=== PATIENT | female | born 1955 | race Two or more races ===

== ENCOUNTER → 2020-04-18 13:16 | Outpatient (BNVA) | payer OTHER, SELFPAY | PROVIDERS: PCP Internal Medicine; Referring Provider Internal Medicine; Visit Provider Student in an Organized Health Care Education/Training Program | DX: Z13.89 Encounter for screening for other disorder (principal) | CPT/HCPCS: Q3014 ==

== ENCOUNTER → 2020-05-29 14:01 | Outpatient (BNVA) | payer OTHER, SELFPAY | PROVIDERS: PCP Internal Medicine; Visit Provider Nurse Practitioner Gerontology | DX: E11.65 Type 2 diabetes mellitus with hyperglycemia (principal); E11.42 Type 2 diabetes mellitus with diabetic polyneuropathy; E11.22 Type 2 diabetes mellitus with diabetic chronic kidney disease; I12.9 Hypertensive chronic kidney disease with stage 1 through stage 4 chronic kidney disease, or unspecified chronic kidney disease; N18.30 Chronic kidney disease, stage 3 unspecified; Z79.4 Long term (current) use of insulin | CPT/HCPCS: 82947; 99212 ==

== ENCOUNTER 2020-06-09 17:09 | Emergency (ER) | payer OTHER, SELFPAY ==
--- NOTE | ~2020-06-09 | XR_ITS ---
EXAMINATION: XR FOOT, RIGHT CLINICAL INFORMATION: Pain after injury COMPARISON: None TECHNIQUE: AP, lateral, and oblique views of the right foot. FINDINGS: Oblique fracture through the fourth toe proximal phalanx without intra-articular extension. There is minimal lateral displacement. Associated soft tissue swelling. No radiopaque foreign bodies. XR/XR foot RT min 3V IMPRESSION: Acute minimally displaced oblique fracture through the fourth toe proximal phalanx.
[2020-06-09 17:32] VITALS: BP 170/67; PULSE 90; RESP 18; TEMP 36.2; O2SAT 98; BMI 30.7
--- NOTE | 2020-06-09 20:22 | ED_ITS ---
HPI - Extremity Injury (Lower) General Chief Complaint: Extremity Injury, Lower Stated Complaint: Foot Injury Time Seen by Provider: 06/09/20 20:15 Source: patient Mode of arrival: ambulatory History of Present Illness HPI Narrative: 65-year-old female With a past medical history of asthma, CKD, COPD, depression, hypertension, fibromyalgia, diabetes, presenting to the ED complaining right foot/toe pain s/p stubbing toes in couch 2 days ago. Reports ecchymosis, swelling, and pain. Denies injury to other area, numbness, tingling, weakness, fever MD complaint: foot injury Related Data Home Medications Medication Instructions Recorded Confirmed albuterol sulfate 90 mcg/actuation 2 puff INHALATION Q6H PRN 04/18/20 05/29/20 aerosol inhaler aspirin 81 mg tablet,delayed 81 mg PO DAILY 04/18/20 05/29/20 release atenolol 25 mg tablet 25 mg PO BID 04/18/20 05/29/20 fluticasone 500 mcg-salmeterol 50 1 inh INHALATION BID 04/18/20 05/29/20 mcg/dose blistr powdr for inhalation gabapentin 800 mg tablet 800 mg PO TID 04/18/20 05/29/20 losartan 100 mg tablet 100 mg PO DAILY 04/18/20 05/29/20 montelukast 10 mg tablet 10 mg PO BEDTIME 04/18/20 05/29/20 blood sugar diagnostic #10 ea 05/29/20 05/29/20 insulin syringe-needle U-100 1 mL #10 ea 05/29/20 05/29/20 31 gauge x 15/64 zolpidem 10 mg tablet 10 mg PO BEDTIME PRN 05/29/20 05/29/20 Previous Rx's Medication Instructions Recorded tramadol 50 mg tablet 100 mg PO BID #120 tab 02/04/20 dulaglutide 1.5 mg/0.5 mL 1.5 mg SUBCUT QWEEK #2 ml 05/04/20 subcutaneous pen injector amlodipine 5 mg tablet 5 mg PO DAILY #30 tab 05/29/20 insulin glargine 100 unit/mL 38 unit SUBCUT DAILY 30 Days #20 ml 05/29/20 subcutaneous solution pen needle, diabetic 32 gauge x #100 ea 05/29/20 insulin aspart U-100 100 unit/mL See Rx Instructions SUBCUT TID 30 05/30/20 (3 mL) subcutaneous pen Days #15 ml oxycodone 5 mg PO Q8H PRN 3 Days #7 cap 06/09/20 Allergies Allergy/AdvReac Type Severity Reaction Status Date / Time insulin detemir Allergy Intermediate Rash Verified 06/09/20 17:40 penicillin V Allergy Intermediate Rash Verified 06/09/20 17:40 acetaminophen [From Tylenol] Allergy Mild ITCH,RASH Verified 06/09/20 17:40 iodine [Iodine] Allergy Mild HIVES Verified 06/09/20 17:40 penicillin G [Penicillin G] Allergy Mild RASH Verified 06/09/20 17:40 latex [LATEX] Allergy Unknown RASH Verified 06/09/20 17:40 trimerosal Allergy Intermediate rash Uncoded 06/09/20 17:40 Latex Gloves Allergy Mild Rash Uncoded 06/09/20 17:40 METAL Allergy Mild HIVES Uncoded 06/09/20 17:40 Review of Systems Review of Systems: Constitutional: No Fever, No Chills Musculoskeletal: + joint pain, No Myalgias, + Joint Swelling Skin: + ecchymosis Neuro: No Weakness, No Numbness, No Paresthesias Yes all other systems are reviewed and are negative [facility] Past Medical History Attestation statement: The following information was validated with the patient. 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 Mother Heart disease CVD (cardiovascular disease) Diabetes Social History Social History (Updated 05/29/20 @ 14:29 by Zelalem Randolph Joey) Household Members: Children Smoking Status: Current every day smoker Advance Directives: No Advance Directives Information Provided: Yes Physical Exam Vital Signs: Vital Signs: Last Vital Signs Temp 97.2 F 06/09/20 17:32 Pulse 90 06/09/20 17:32 Resp 18 06/09/20 17:32 BP 170/67 H 06/09/20 17:32 Pulse Ox 98 06/09/20 17:32 Body Mass Index 30.7 Const: General: cooperative, healthy appearing and comfortable Orientation/consciousness: patient oriented x3 Limitations: no limitations HENMT: Head: Yes normal to inspection Ears: hearing grossly normal bilaterally General nose exam: Normal external nose present Face and sin us: Yes normal facial exam Eyes: General: appearance normal, both eyes and all related structures EOM: EOMs intact bilaterally Neck: Neck: Yes normal visual inspection Resp: Effort & Inspection: normal respiratory effort Cardio: Rate: regular rate Peripheral pulses: dorsalis pedis present Skin: Rashes: no rashes Neuro: General: patient oriented x3 and tone normal Gait exam (Neuro): Normal gait present Extrem: Other: Right foot with swelling noted distally. All toes with slight ecchymosis. Fourth toe with notable swelling/ecchymosis and tenderness to palpation. Decreased ROM to 4th toe. Neurovascularly intact. Ankle nontender. Full range of motion ankle intact Course Course Course Narrative: XR foot RT min 3V IMPRESSION: Acute minimally displaced oblique fracture through the fourth toe proximal phalanx. >> patient placed in westley tape, is to follow-up with PCP/Orthopedics MDM - Extremity Injury (Lower) MDM Narrative Medical decision making narrative: On exam VSS, NAD/well-appearing. Physical exam as above. Concern for toe fracture/foot fracture Discharge Plan Discharge Clinical Impression: Fracture of fourth toe, right, closed Qualifiers: Encounter type: initial encounter Qualified Code(s): S92.501A - Displaced unspecified fracture of right lesser toe(s), initial encounter for closed f racture Patient Disposition: Home, Self-Care Instructions: Toe Fracture (ED) Additional Instructions: You have a fractured 4th toe. Wear westley tape at home for support. Ice and elevate your foot. Take Motrin at home for swelling/pain. Oxycodone isn't opiate pain medication, take only when pain is severe for the next 3 days You should follow-up with an senior marketing specialist in 1 week If pain persists or worsens, you develop numbness, pain becomes unbearable, or you fever return to the ED Prescriptions: New oxycodone 5 mg capsule 5 mg PO Q8H PRN (Reason: pain, severe) 3 Days Qty: 7 RF: 0 No Action tramadol 50 mg tablet 100 mg PO BID Qty: 120 RF: 5 dulaglutide [Trulicity] 1.5 mg/0.5 mL pen injector 1.5 mg subcut QWEEK Qty: 2 RF: 3 insulin aspart U-100 [Novolog Flexpen U-100 Insulin] 100 unit/mL (3 mL) insulin pen See Rx Instructions subcut TID 30 Days Qty: 15 RF: 0 albuterol sulfate 90 mcg/actuation HFA aerosol inhaler 2 puff inhalation Q6H PRNRF: 0 fluticasone propion-salmeterol [Advair Diskus] 500-50 mcg/dose blister with device 1 inh inhalation BID RF: 0 gabapentin 800 mg tablet 800 mg PO TID RF: 0 losartan 100 mg tablet 100 mg PO DAILY RF: 0 aspirin 81 mg tablet,delayed release (DR/EC) 81 mg PO DAILY RF: 0 montelukast [Singulair] 10 mg tablet 10 mg PO BEDTIME RF: 0 atenolol 25 mg tablet 25 mg PO BID RF: 0 (DME) insulin syringe-needle U-100 1 mL 31 gauge x 15/64 syringe See Rx Instructions ea .ROUTE BID Qty: 10 RF: 0 (DME) FreeStyle Lite Strips Strip See Rx Instructions ea Not Applicable BID Qty: 10 RF: 0 zolpidem 10 mg tablet 10 mg PO BEDTIME PRNRF: 0 Lantus U-100 Insulin 100 unit/mL solution 38 unit subcut DAILY 30 Days Qty: 20 RF: 3 (DME) pen needle, diabetic [BD Ultra-Fine Janene Pen Needle] 32 gauge x 5/32 needle See Rx Instructions .ROUTE .MEDSUPPLY Qty: 100 RF: 11 amlodipine 5 mg tablet 5 mg PO DAILY Qty: 30 RF: 3 Referrals: Juan R Bey MD [Primary Care Provider] - 2 days
[2020-06-09] MEDS: Ibuprofen 800 MG TABLET PO (21:00)
== END 2020-06-09 21:09 | disposition home or self-care (01) ==
PROVIDERS: Emergency Provider Internal Medicine; PCP Internal Medicine
DX: S92.501A Displaced unspecified fracture of right lesser toe(s), initial encounter for closed fracture (principal); M79.671 Pain in right foot; I12.9 Hypertensive chronic kidney disease with stage 1 through stage 4 chronic kidney disease, or unspecified chronic kidney disease; N18.30 Chronic kidney disease, stage 3 unspecified; Y29.XXXA Contact with blunt object, undetermined intent, initial encounter; Y93.9 Activity, unspecified; Y92.009 Unspecified place in unspecified non-institutional (private) residence as the place of occurrence of the external cause; Y99.9 Unspecified external cause status; F17.200 Nicotine dependence, unspecified, uncomplicated; Z71.6 Tobacco abuse counseling; Z79.899 Other long term (current) drug therapy; Z79.82 Long term (current) use of aspirin
CPT/HCPCS: 73630; 99283; 99284

== ENCOUNTER → 2020-06-27 13:24 | Outpatient (BNVA) | payer OTHER, SELFPAY | PROVIDERS: PCP Internal Medicine; Visit Provider Physician Assistant | DX: S92.911A Unspecified fracture of right toe(s), initial encounter for closed fracture (principal) | CPT/HCPCS: 99202 ==

== ENCOUNTER 2020-07-25 09:01 | Outpatient (REF) | payer OTHER, SELFPAY ==
[2020-07-25 10:31] LABS: Alanine Aminotransferase 12 U/L (0-31); Alkaline Phosphatase 106 U/L (39-117); Anion Gap 14 (12-20); Aspartate Amino Transferase 13 U/L (5-31); Bilirubin Total 0.3 mg/dL (0.0-1.0); Blood Urea Nitrogen 18 mg/dL (9-16); Calcium 9.2 mg/dL (8.4-10.2); Carbon Dioxide 26 mmol/L (22-29); Chloride 106 mmol/L (96-108); Cholesterol 198 mg/dL; Estimated Glomerular Filt Rate > 60; Glucose Fasting 159 mg/dL (60-99); HDL Cholesterol 44 mg/dL; LDL Cholesterol Calculated 128 mg/dl; Potassium 5.4 mmol/L (3.3-5.1); Sodium 141 mmol/L (135-145); Total Protein 6.9 g/dL (6.5-8.0); Triglycerides 134 mg/dL
[2020-07-25 11:17] LABS: Creatinine Urine 115.63 mg/dL; Microalbum/Creatinine Ratio Ur 359.7 ug/mg cr
== END 2020-07-25 09:02 | disposition home or self-care (01) ==
LOC: HO.LAB 09:01
PROVIDERS: PCP Internal Medicine; Visit Provider Nurse Practitioner Gerontology
DX: E11.65 Type 2 diabetes mellitus with hyperglycemia (principal); Z79.4 Long term (current) use of insulin
CPT/HCPCS: 36415; 80053; 80061; 82043

== ENCOUNTER 2020-07-28 08:26 | Outpatient (REF) | payer OTHER, SELFPAY ==
[2020-07-28 10:02] LABS: Alanine Aminotransferase 12 U/L (0-31); Albumin Level 4.1 g/dL (3.5-5.0); Alkaline Phosphatase 117 U/L (39-117); Anion Gap 12 (12-20); Aspartate Amino Transferase 10 U/L (5-31); Blood Urea Nitrogen 19 mg/dL (9-16); Calcium 9.1 mg/dL (8.4-10.2); Carbon Dioxide 28 mmol/L (22-29); Chloride 104 mmol/L (96-108); Estimated Glomerular Filt Rate > 60; Glucose Random 180 mg/dL (60-115); Potassium 5.3 mmol/L (3.3-5.1); Sodium 139 mmol/L (135-145); Total Protein 7.1 g/dL (6.5-8.0)
[2020-07-28 10:15] LABS: Bilirubin Total 0.5 mg/dL (0.0-1.0)
== END 2020-07-28 08:27 | disposition home or self-care (01) ==
LOC: HO.LAB 08:26
PROVIDERS: Student in an Organized Health Care Education/Training Program; PCP Internal Medicine; Visit Provider Nurse Practitioner Gerontology
DX: M47.816 Spondylosis without myelopathy or radiculopathy, lumbar region (principal); E11.42 Type 2 diabetes mellitus with diabetic polyneuropathy
CPT/HCPCS: 36415; 80053

== ENCOUNTER → 2020-08-01 12:33 | Outpatient (BNVA) | payer OTHER, SELFPAY | PROVIDERS: PCP Internal Medicine; Visit Provider Nurse Practitioner Gerontology | DX: E11.65 Type 2 diabetes mellitus with hyperglycemia (principal); E11.42 Type 2 diabetes mellitus with diabetic polyneuropathy; E11.22 Type 2 diabetes mellitus with diabetic chronic kidney disease; I12.9 Hypertensive chronic kidney disease with stage 1 through stage 4 chronic kidney disease, or unspecified chronic kidney disease; N18.30 Chronic kidney disease, stage 3 unspecified; Z79.4 Long term (current) use of insulin; E78.5 Hyperlipidemia, unspecified; R80.9 Proteinuria, unspecified | CPT/HCPCS: 82947; 99212 ==

== ENCOUNTER 2020-09-06 09:30 | Outpatient (REF) | payer OTHER, SELFPAY ==
--- NOTE | ~2020-09-06 | US_ITS ---
EXAMINATION: US RETROPERITONEAL LIMITED (RENAL ONLY) CLINICAL INFORMATION: CKD. COMPARISON: CT abdomen and pelvis 08/13/2016. TECHNIQUE: Real-time imaging of the kidneys. FINDINGS: RIGHT KIDNEY: 12.5 x 5.6 x 5.5 cm (SAG x AP x TRV). The kidney is normal in size, contour, and echogenicity. Renal cortical thickness is normal. There is a 4 x 5 x 5 mm echogenic lesion in the lower pole of the right kidney . This is not appreciated on previous CT July 2016. No renal calculi or hydronephrosis. LEFT KIDNEY: 12.4 x 6.7 x 5.5 cm (SAG x AP x TRV). The kidney is normal in size, contour, and echogenicity. Renal cortical thickness is normal. There is a 7 x 4 x 8 mm cyst exophytic to the lower pole. No renal calculi or hydronephrosis. US/US renal BI IMPRESSION: 5 mm echogenic lesion in the lower pole of the right kidney. Ultrasound appearance is most suggestive of an angiomyolipoma. This is not appreciated on previous CT of the abdomen July 2016. Follow-up CT or MRI of the kidneys or a 6 month follow-up renal ultrasound should be considered. Small left renal cyst..
[2020-09-06 11:00] LABS: Glucose Urine UA NEG (NEG); Leukocyte Esterase Urine NEG (NEG); Nitrite Urine NEG (NEG); PH 5.5 (5.0-8.0); Specific Gravity - Urine >= 1.030 (1.005-1.025); Urine Blood NEG (NEG); Urine Ketones NEG (NEG); Urine Protein 2+ MG/DL (NEG-TRACE)
[2020-09-06 11:02] LABS: Appearance Urine HAZY; Color Urine YELLOW
[2020-09-06 11:29] LABS: Amorphous Sediment Urine 1+ /LPF; Mucus Urine 2+ /LPF; RBC Urine 0-2 /HPF (0); Squamous Epithelial Cell Urine 1+ /LPF
[2020-09-06 11:50] LABS: Anion Gap 14 (12-20); Blood Urea Nitrogen 17 mg/dL (9-16); Calcium 8.9 mg/dL (8.4-10.2); Carbon Dioxide 25 mmol/L (22-29); Chloride 106 mmol/L (96-108); Estimated Glomerular Filt Rate 56; Potassium 4.9 mmol/L (3.3-5.1); Sodium 140 mmol/L (135-145)
[2020-09-06 12:12] LABS: Protein/Creatinine Ratio, Ur 0.47 (<0.2); Total Protein Urine Random 103 mg/dL (<12)
== END 2020-09-06 09:31 | disposition home or self-care (01) ==
LOC: HO.US 09:30
PROVIDERS: PCP Internal Medicine; Visit Provider Internal Medicine Hypertension Specialist
DX: E11.22 Type 2 diabetes mellitus with diabetic chronic kidney disease (principal); N18.9 Chronic kidney disease, unspecified
CPT/HCPCS: 36415; 76775; 80051; 81001; 81003; 82310; 82565; 84156; 84520

== ENCOUNTER 2020-09-19 09:52 | Outpatient (REF) | payer OTHER, SELFPAY | END 2020-09-19 09:53 | disposition home or self-care (01) | LOC: HO.LAB 09:52 | PROVIDERS: Visit Provider Internal Medicine | DX: Z20.822 Contact with and (suspected) exposure to COVID-19 (principal) | CPT/HCPCS: C9803; U0003; U0005 ==

== ENCOUNTER → 2020-09-20 12:45 | Outpatient (BNVA) | payer OTHER, SELFPAY | PROVIDERS: PCP Internal Medicine; Visit Provider Nurse Practitioner Gerontology | DX: E11.65 Type 2 diabetes mellitus with hyperglycemia (principal); E11.42 Type 2 diabetes mellitus with diabetic polyneuropathy; E11.22 Type 2 diabetes mellitus with diabetic chronic kidney disease; I12.9 Hypertensive chronic kidney disease with stage 1 through stage 4 chronic kidney disease, or unspecified chronic kidney disease; N18.30 Chronic kidney disease, stage 3 unspecified; R80.9 Proteinuria, unspecified; Z79.4 Long term (current) use of insulin | CPT/HCPCS: 82947; 99212 ==

== ENCOUNTER → 2020-11-07 10:24 | Outpatient (BNVA) | payer OTHER, SELFPAY | PROVIDERS: PCP Internal Medicine; Visit Provider Nurse Practitioner Gerontology | DX: E11.22 Type 2 diabetes mellitus with diabetic chronic kidney disease (principal); E11.65 Type 2 diabetes mellitus with hyperglycemia; E11.42 Type 2 diabetes mellitus with diabetic polyneuropathy; I12.9 Hypertensive chronic kidney disease with stage 1 through stage 4 chronic kidney disease, or unspecified chronic kidney disease; N18.30 Chronic kidney disease, stage 3 unspecified; R80.9 Proteinuria, unspecified; E78.5 Hyperlipidemia, unspecified; F17.210 Nicotine dependence, cigarettes, uncomplicated; Z88.0 Allergy status to penicillin; Z88.8 Allergy status to other drugs, medicaments and biological substances; Z88.6 Allergy status to analgesic agent; Z91.040 Latex allergy status; Z79.4 Long term (current) use of insulin; Z79.899 Other long term (current) drug therapy | CPT/HCPCS: Q3014 ==

== ENCOUNTER → 2020-12-19 09:12 | Outpatient (BNVA) | payer OTHER, SELFPAY | PROVIDERS: PCP Internal Medicine; Visit Provider Student in an Organized Health Care Education/Training Program | CPT/HCPCS: Q3014 ==

== ENCOUNTER → 2021-04-19 11:44 | Outpatient (BNVA) | payer OTHER, SELFPAY | PROVIDERS: PCP Internal Medicine; Visit Provider Nurse Practitioner Gerontology | DX: Z13.89 Encounter for screening for other disorder (principal) | CPT/HCPCS: Q3014 ==

== ENCOUNTER → 2021-05-10 10:34 | Outpatient (BNVA) | payer OTHER, SELFPAY | PROVIDERS: PCP Internal Medicine; Visit Provider Registered Nurse Diabetes Educator | DX: E11.65 Type 2 diabetes mellitus with hyperglycemia (principal); E11.22 Type 2 diabetes mellitus with diabetic chronic kidney disease; N18.30 Chronic kidney disease, stage 3 unspecified; E11.42 Type 2 diabetes mellitus with diabetic polyneuropathy; Z79.4 Long term (current) use of insulin | CPT/HCPCS: 99211 ==

== ENCOUNTER → 2021-05-25 11:48 | Outpatient (BNVA) | payer OTHER, SELFPAY | PROVIDERS: PCP Internal Medicine; Visit Provider Registered Nurse Diabetes Educator | DX: E11.65 Type 2 diabetes mellitus with hyperglycemia (principal); E11.22 Type 2 diabetes mellitus with diabetic chronic kidney disease; N18.30 Chronic kidney disease, stage 3 unspecified; E11.42 Type 2 diabetes mellitus with diabetic polyneuropathy; Z79.4 Long term (current) use of insulin | CPT/HCPCS: 99211 ==

== ENCOUNTER 2021-05-25 12:05 | Emergency (ER) | payer OTHER, SELFPAY ==
--- NOTE | 2021-05-25 | ECG_ITS ---
Test Reason : neuro symptoms Blood Pressure : / mmHG Vent. Rate : 083 BPM Atrial Rate : 083 BPM P-R Int : 170 ms QRS Dur : 098 ms QT Int : 370 ms P-R-T Axes : 059 006 066 degrees QTc Int : 434 ms Normal sinus rhythm Nonspecific T wave abnormality Abnormal ECG When compared with ECG of 14-AUG-2016 00:00, Non-specific change in ST segment in Lateral leads Referred By: Generic ED Physician Electronically Signed By:RIOS KENNEDY
--- NOTE | ~2021-05-25 | CT_ITS ---
EXAMINATION: CT HEAD WITHOUT CONTRAST CLINICAL INFORMATION: Left facial droop COMPARISON: None TECHNIQUE: Contiguous axial imaging was performed from the skull base to vertex without intravenous administration of contrast. This CT examination was performed using dose optimization techniques as appropriate, variously including the following: *Automated exposure control *Adjustment of mA and/or kV according to patient size (this includes techniques or standardized protocols for targeted exams where dose is matched to indication/reason for exam; i.e. extremities or head) *Use of iterative reconstruction technique DLP: 736 mGy-cm FINDINGS: There is no evidence of acute intracranial hemorrhage or territorial infarction. No abnormal mass effect or midline shift is seen. [place] to white matter differentiation is well preserved. No extra-axial fluid collections are identified. The ventricles are normal in size. There is no abnormal attenuation within the brain parenchyma. The osseous structures and soft tissues are normal. The mastoid air cells and visualized portions of the paranasal sinuses are well aerated. CT/CT head/brain wo con IMPRESSION: No acute intracranial process.
[2021-05-25 12:06] VITALS: BP 168/59; PULSE 84; RESP 16; TEMP 36.6; O2SAT 98; BMI 33.5
[2021-05-25 12:33] LABS: MANUAL DIFF FLAG NO
[2021-05-25 12:35] LABS: Basophils Percent Auto 0.4 % (0-2); Eosinophils Absolute Auto 0.2 X10*3/uL (0.0-0.4); Eosinophils Percent Auto 2.1 % (0-4); Hemoglobin 13.4 g/dl (12.0-16.0); Imm Gran Abs Auto 0.05 X10*3/uL (0.00-0.03); Imm Gran Pct Auto 0.4 % (0.0-0.4); Lymphocytes Absolute Auto 2.3 X10*3/uL (1.2-4.9); Lymphocytes Percent Auto 19.9 % (20-40); Mean Corpuscular HGB Conc 32.7 g/dl (31.0-35.0); Mean Corpuscular Volume 88.7 fL (80.0-98.0); Mean Platelet Volume 10.7 fL (9.4-12.3); Monocytes Absolute Auto 0.6 X10*3/uL (0.1-1.2); Monocytes Percent Auto 5.5 % (2-11); Neutrophils Absolute Auto 8.1 x10*3/uL (2.0-8.3); Neutrophils Percent Auto 71.7 % (45-73); Platelet Count 303 X10*3/uL (160-400); Red Blood Count 4.62 X10*6/uL (4.20-5.50); Red Cell Distribution Width 13.7 % (11.0-16.0); White Blood Count 11.4 X10*3/uL (4.8-10.8)
[2021-05-25 12:41] LABS: Prothrombin Time 11.9 SEC (9.9-13.0)
[2021-05-25 12:56] LABS: Alanine Aminotransferase 11 U/L (0-31); Alkaline Phosphatase 124 U/L (39-117); Anion Gap 15 (12-20); Aspartate Amino Transferase 11 U/L (5-31); Bilirubin Direct 0.2 mg/dL (0.0-0.5); Bilirubin Total 0.5 mg/dL (0.0-1.0); Blood Urea Nitrogen 19 mg/dL (9-16); Calcium 9.6 mg/dL (8.4-10.2); Carbon Dioxide 27 mmol/L (22-29); Chloride 103 mmol/L (96-108); Creatinine Clr Calc Pharmacy 68.7; Estimated Glomerular Filt Rate > 60; Glucose Random 243 mg/dL (60-115); Potassium 4.7 mmol/L (3.3-5.1); Sodium 140 mmol/L (135-145); Total Protein 7.3 g/dL (6.5-8.0)
--- NOTE | 2021-05-25 12:56 | ED_ITS ---
HPI - Neuro Symptoms/Deficit General Chief Complaint: Neuro Symptoms/Deficit Stated Complaint: blurred vision mouth twisted Time Seen by Provider: 05/25/21 12:47 Source: patient Mode of arrival: ambulatory Limitations: no limitations History of Present Illness HPI Narrative: L sided facial droop - has had recent sinus infection/pressure, noted headache progressively worsening L sided facial droop (triage states R it is L) Onset (ago): day(s) Location: left face History of same: No Severity: moderate Quality: weak Relieving factors: none Exacerbating factors: none Context: gradual onset On Anticoagulants: No Associated symptoms: other (recent cold - sinus infection congestion no treatment) Treatments Prior to Arrival: none Related Data Home Medications Medication Instructions Recorded Confirmed albuterol sulfate 90 2 puff INHALATION Q6H PRN 04/18/20 11/07/20 mcg/actuation aerosol inhaler aspirin 81 mg tablet,delayed 81 mg PO DAILY 04/18/20 04/19/21 release atenolol 25 mg tablet 25 mg PO BID 04/18/20 04/19/21 fluticasone 500 mcg-salmeterol 1 inh INHALATION BID 04/18/20 11/07/20 50 mcg/dose blistr powdr for inhalation (Advair Diskus) gabapentin 800 mg tablet 800 mg PO TID 04/18/20 04/19/21 losartan 100 mg tablet 100 mg PO DAILY 04/18/20 04/19/21 montelukast 10 mg tablet 10 mg PO BEDTIME 04/18/20 11/07/20 (Singulair) insulin syringe-needle U-100 1 #10 ea 05/29/20 11/07/20 mL 31 gauge x 15/64 zolpidem 10 mg tablet 10 mg PO BEDTIME PRN 05/29/20 11/07/20 oxybutynin chloride 5 mg 5 mg PO DAILY 08/01/20 11/07/20 tablet,extended release 24 hr Previous Rx's Medication Instructions Recorded pen needle, diabetic 32 gauge x #100 ea 05/29/20 (BD Ultra-Fine Janene Pen Needle) blood sugar diagnostic (FreeStyle #400 ea 08/01/20 Lite Strips) lancets 28 gauge (FreeStyle #400 ea 08/01/20 Lancets) flash glucose scanning reader 1 ea MISCELLANEOUS DIRECTED 11/06/20 (FreeStyle Crystal 2 [place]) Days #1 ea flash glucose sensor (FreeStyle 1 ea MISCELLANEOUS Q2W #6 kit 11/06/20 Crystal 2 Sensor) dulaglutide 1.5 mg/0.5 mL 1.5 mg (0.5 mL) SUBCUT QWEEK #2 ml 12/20/20 subcutaneous pen injector (Trulicity) tramadol 50 mg tablet 100 mg PO BID #120 tab 02/23/21 amlodipine 5 mg tablet 5 mg PO QPM #30 tab 04/09/21 atorvastatin 40 mg tablet 40 mg PO BEDTIME #30 tab 04/09/21 blood-glucose meter (FreeStyle #1 ea 04/19/21 Lite Meter) insulin aspart U-100 100 unit/mL See Rx Instructions SUBCUT TID #30 04/19/21 (3 mL) subcutaneous pen (Novolog ml Flexpen U-100 Insulin aspart) insulin glargine 100 unit/mL 46 unit (0.46 mL) SUBCUT DAILY 30 04/19/21 subcutaneous solution (Lantus Days #13.8 ml U-100 Insulin) prednisone 20 mg tablet 40 mg PO DAILY 5 Days #10 tab 05/25/21 valacyclovir 1 gram tablet 1,000 mg PO TID 7 Days #21 tab 05/25/21 (Valtrex) Allergies Allergy/AdvReac Type Severity Reaction Status Date / Time insulin detemir Allergy Intermediate Rash Verified 04/19/21 12:05 penicillin V Allergy Intermediate Rash Verified 04/19/21 12:05 acetaminophen [From Allergy Mild ITCH,RASH Verified 04/19/21 12:05 Tylenol] iodine [Iodine] Allergy Mild HIVES Verified 04/19/21 12:05 penicillin G Allergy Mild RASH Verified 04/19/21 12:05 [Penicillin G] latex [LATEX] Allergy Unknown RASH Verified 04/19/21 12:05 trimerosal Allergy Intermediate rash Uncoded 04/19/21 12:05 Latex Gloves Allergy Mild Rash Uncoded 04/19/21 12:05 METAL Allergy Mild HIVES Uncoded 04/19/21 12:05 Review of Systems Verdana 4l Review of Systems: Verdana 4d Verdana 4d Constitutional : No Fever, No Chills, No Fatigue ENT/Mouth : No sore throat, No Rhinorrhea, pos sinus pressure, pos nasal congestion Eyes: No Eye Pain, No Swelling, No Redness Cardiovascular : No Chest Pain, No SOB, No Dyspnea on Exertion Respiratory : No Cough, No Sputum Gastrointestinal : No Nausea, No Vomiting, No Diarrhea, No abdominal Pain Genitourinary : No Dysuria, No Urinary Frequency, No Hematuria, Musculoskeletal : No joint pain, No Myalgias, No Joint Swelling Skin : No Skin Lesions, No rash Neuro : pos left face Weakness, No Numbness, No Dizziness, positive Headache Psych : No Anxiety/Panic, No Depression Heme/Lymph: No Bruising, No Bleeding,No Lymphadenopathy Endocrine : No Polyuria, No Polydipsia All other systems reviewed and are negative [facility] Past Medical History Attestation statement: The following information was validated with the patient. 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 Mother Heart disease CVD (cardiovascular disease) Diabetes Social History Social History Household Members: Children Alcohol intake: never Patient Tobacco Use Status: Former Tobacco user Tobacco use type: Cigarette Cigarettes Per Day: 4 Smoked in Last 30 Days: Yes Use of substances other than those prescribed or required for medical reasons: No Advance Directives: No Advance Directives Information Provided: No Physical Exam Verdana 4l Vital Signs: Verdana 4d Verdana 4d Vital Signs: Verdana 4d Verdana 4Bd Last Vital Signs Verdana 4d Office Executive New 4d Office Executive New 4d Temp 99.3 F 05/25/21 13:00 Office Executive New 4d Pulse 82 05/25/21 13:00 Office Executive New 4d Resp 16 05/25/21 13:00 BP 173/77 H 05/25/21 13:00 Pulse Ox 97 05/25/21 13:00 BMI result Body Mass Index 33.5 Appearance: Alert. Oriented X3. No acute distress. Eyes: Pupils equal, round and reactive to light. ENT: Pharynx normal. TMs normal Neck: Normal inspection. Neck supple. CVS: Normal heart rate and rhythm. Pulses normal. Respiratory: No respiratory distress. Breath sounds normal. Abdomen: Soft and non-tender. Skin: Skin warm and dry. Normal skin color. Normal skin turgor. Extremities: No lower extremity edema. No calf ttp Neuro: Oriented X 3. otherwise No motor deficit. No sensory deficit. L sided facial paralysis including forehead cannot close eye - involves entire face cannot lift eyebrow Course Course Course Narrative: no other deficits other than L sided facial droop - her speech is due to her facial droop, she has no change in vision her eyes feel dry, no focal deficits otherwise, CT head negative at 72 hours at this time will refer to PCP and treat for bells palsy given it includes her forehead and complete facial paralysis did discuss prednisone side effects on sugar with patient she states she is aware due to her asthma MDM - Neuro Symptoms/Deficit MDM Narrative Medical decision making narrative: 66 yo female with hx of HLD, DM, CKD, HTN here with c/o L sided facial paralysis x 3 days did not sinus like infection prior to this. She did not fall she is not on DOAC. She has no prior episodes of this. It includes the entire face and fo rehead suspect peripheral lesion - at this time labs ordered from triage - CT head ordered. Suspect Glass's palsy. Lab Data Result diagrams: 05/25/21 12:27 05/25/21 12:27 Labs: Lab Results 05/25/21 05/25/21 05/25/21 Range/Units 12:25 12:27 12:27 WBC 11.4 H (4.8-10.8) X10*3/uL RBC 4.62 (4.20-5.50) X10*6/uL Hgb 13.4 (12.0-16.0) g/dl Hct 41.0 (37.0-47.0) % MCV 88.7 (80.0-98.0) fL MCH 29.0 (27.0-33.0) pg MCHC 32.7 (31.0-35.0) g/dl RDW 13.7 (11.0-16.0) % Plt Count 303 (160-400) X10*3/uL MPV 10.7 (9.4-12.3) fL Immature Gran % (Auto) 0.4 (0.0-0.4) % Neut % (Auto) 71.7 (45-73) % Lymph % (Auto) 19.9 L (20-40) % [place] % (Auto) 5.5 (2-11) % Eos % (Auto) 2.1 (0-4) % Baso % (Auto) 0.4 (0-2) % Lymph # (Auto) 2.3 (1.2-4.9) X10*3/uL [place] # (Auto) 0.6 (0.1-1.2) X10*3/uL Eos # (Auto) 0.2 (0.0-0.4) X10*3/uL Baso # (Auto) 0.0 (0.0-0.2) X10*3/uL Abs Immat Gran (auto) 0.05 H (0.00-0.03) X10*3/uL Absolute Neuts (auto) 8.1 (2.0-8.3) x10*3/uL Absolute Nucleated RBC 0.000 (0.0-0.012) X10*3/uL Nucleated RBC % (auto) 0.0 (0.0-0.2) /100WBC PT 11.9 (9.9-13.0) SEC INR 1.0 (0.9-1.1) Sodium (135-145) mmol/L Potassium (3.3-5.1) mmol/L Chloride (96-108) mmol/L Carbon Dioxide (22-29) mmol/L Anion Gap (12-20) BUN (9-16) mg/dL Creatinine (0.5-1.4) mg/dL Estim Creat Clear Calc Estimated GFR Random Glucose (60-115) mg/dL Calcium (8.4-10.2) mg/dL Total Bilirubin (0.0-1.0) mg/dL Direct Bilirubin (0.0-0.5) mg/dL AST (5-31) U/L ALT (0-31) U/L Alkaline Phosphatase (39-117) U/L Troponin I High Sens (<3.5-17.0) ng/L Total Protein (6.5-8.0) g/dL Albumin (3.5-5.0) g/dL COVID-19 ([facility]) Negative (Negative) COVID-19 Clin Com See Note 05/25/21 05/25/21 Range/Units 12:27 12:27 WBC (4.8-10.8) X10*3/uL RBC (4.20-5.50) X10*6/uL Hgb (12.0-16.0) g/dl Hct (37.0-47.0) % MCV (80.0-98.0) fL MCH (27.0-33.0) pg MCHC (31.0-35.0) g/dl RDW (11.0-16.0) % Plt Count (160-400) X10*3/uL MPV (9.4-12.3) fL Immature Gran % (Auto) (0.0-0.4) % Neut % (Auto) (45-73) % Lymph % (Auto) (20-40) % [place] % (Auto) (2-11) % Eos % (Auto) (0-4) % Baso % (Auto) (0-2) % Lymph # (Auto) (1.2-4.9) X10*3/uL [place] # (Auto) (0.1-1.2) X10*3/uL Eos # (Auto) (0.0-0.4) X10*3/uL Baso # (Auto) (0.0-0.2) X10*3/uL Abs Immat Gran (auto) (0.00-0.03) X10*3/uL Absolute Neuts (auto) (2.0-8.3) x10*3/uL Absolute Nucleated RBC (0.0-0.012) X10*3/uL Nucleated RBC % (auto) (0.0-0.2) /100WBC PT (9.9-13.0) SEC INR (0.9-1.1) Sodium 140 (135-145) mmol/L Potassium 4.7 (3.3-5.1) mmol/L Chloride 103 (96-108) mmol/L Carbon Dioxide 27 (22-29) mmol/L Anion Gap 15 (12-20) BUN 19 H (9-16) mg/dL Creatinine 0.93 (0.5-1.4) mg/dL Estim Creat Clear Calc 68.7 Estimated GFR > 60 Random Glucose 243 H (60-115) mg/dL Calcium 9.6 D (8.4-10.2) mg/dL Total Bilirubin 0.5 (0.0-1.0) mg/dL Direct Bilirubin 0.2 (0.0-0.5) mg/dL AST 11 (5-31) U/L ALT 11 (0-31) U/L Alkaline Phosphatase 124 H (39-117) U/L Troponin I High Sens < 3.5 (<3.5-17.0) ng/L Total Protein 7.3 (6.5-8.0) g/dL Albumin 4.0 (3.5-5.0) g/dL COVID-19 ([facility]) (Negative) COVID-19 Clin Com ECG Data Attestation: I personally reviewed and interpreted this ECG as follows: ECG interpretation date: 05/25/21 ECG interpretation time: 13:15 Interpretation: Rate: 83 Rhythm: NSR Victor: normal Normal P waves. Normal GLENNY. Normal QRS complex. ST T wave : no DONNA, nonspecific qTC: normal prior studies: no acute ischemia The study has been interpreted contemporaneously by me. . Discharge Plan Discharge Clinical Impression: Glass's palsy Patient Disposition: Home, Self-Care Instructions: Glass Palsy (ED) Additional Instructions: return to ED for any worsening symptoms or concerns CT scan negative COVID negative please use saline drops to keep eyes moist, tape eye gently shut at night so you do not scrape it. Prescriptions: New prednisone 20 mg tablet 40 mg PO DAILY 5 Days Qty: 10 0RF valacyclovir [Valtrex] 1 gram tablet 1,000 mg PO TID 7 Days Qty: 21 0RF No Action flash glucose sensor [FreeStyle Crystal 2 Sensor] Kit 1 ea miscellaneous Q2W Qty: 6 3RF flash glucose scanning reader [FreeStyle Crystal 2 [place]] Misc 1 ea miscellaneous DIRECTED 30 Days Qty: 1 0RF Trulicity 1.5 mg/0.5 mL pen injector 1.5 mg subcut QWEEK Qty: 2 3RF tramadol 50 mg tablet 100 mg PO BID Qty: 120 5RF amlodipine 5 mg tablet 5 mg PO QPM Qty: 30 4RF atorvastatin 40 mg tablet 40 mg PO BEDTIME Qty: 30 3RF oxybutynin chloride 5 mg tablet extended release 24hr 5 mg PO DAILY 0RF (DME) FreeStyle Lite Strips Strip See Rx Instructions .ROUTE .MEDSUPPLY Qty: 400 3RF Rx Instructions: four times a day (DME) lancets [FreeStyle Lancets] 28 gauge misc See Rx Instructions .ROUTE .MEDSUPPLY Qty: 400 3RF Rx Instructions: four times a day Lantus U-100 Insulin 100 unit/mL solution 46 unit subcut DAILY 30 Days Qty: 13.8 3RF insulin aspart U-100 [Novolog Flexpen U-100 Insulin] 100 unit/mL (3 mL) insulin pen See Rx Instructions subcut TID Qty: 30 6RF Rx Instructions: 10 units breakfast, 15 units lunch, 18 units dinner subcut 3 times a day; (DME) blood-glucose meter [FreeStyle Lite Meter] Kit See Rx Instructions .ROUTE .MEDSUPPLY Qty: 1 0RF Rx Instructions: As directed albuterol sulfate 90 mcg/actuation HFA aerosol inhaler 2 puff inhalation Q6H PRN0RF fluticasone propion-salmeterol [Advair Diskus] 500-50 mcg/dose blister with device 1 inh inhalation BID 0RF gabapentin 800 mg tablet 800 mg PO TID 0RF losartan 100 mg tablet 100 mg PO DAILY 0RF aspirin 81 mg tablet,delayed release (DR/EC) 81 mg PO DAILY 0RF montelukast [Singulair] 10 mg tablet 10 mg PO BEDTIME 0RF atenolol 25 mg tablet 25 mg PO BID 0RF (DME) insulin syringe-needle U-100 1 mL 31 gauge x 15/64 syringe See Rx Instructions ea .ROUTE BID Qty: 10 0RF Rx Instructions: As directed zolpidem 10 mg tablet 10 mg PO BEDTIME PRN0RF (DME) pen needle, diabetic [BD Ultra-Fine Janene Pen Needle] 32 gauge x 5/32 needle See Rx Instructions .ROUTE .MEDSUPPLY Qty: 100 11RF Rx Instructions: As directed three times a day Referrals: Juan R Bey MD [Primary Care Provider] - 3 days
[2021-05-25 12:59] LABS: Troponin-I High Sensitivity < 3.5 ng/L (<3.5-17.0)
[2021-05-25 13:00] VITALS: BP 173/77; PULSE 82; RESP 16; TEMP 37.4; O2SAT 97
[2021-05-25 13:03] LABS: COVID-19 Test Negative (Negative)
--- NOTE | 2021-05-25 13:04 | PC.NURSE ---
patient triage reports symptoms on right side of face. upon assessment by rn and md, symptoms are occurring on left side of face.
== END 2021-05-25 14:34 | disposition home or self-care (01) ==
PROVIDERS: Emergency Provider Emergency Medicine; PCP Internal Medicine
DX: G51.0 Bell's palsy (principal); Z20.822 Contact with and (suspected) exposure to COVID-19; E11.22 Type 2 diabetes mellitus with diabetic chronic kidney disease; I12.9 Hypertensive chronic kidney disease with stage 1 through stage 4 chronic kidney disease, or unspecified chronic kidney disease; N18.9 Chronic kidney disease, unspecified
CPT/HCPCS: 36415; 70450; 80053; 82248; 84484; 85025; 85610; 87635; 93005; 99284

== ENCOUNTER → 2021-07-23 11:45 | Outpatient (BNVA) | payer OTHER, SELFPAY | PROVIDERS: PCP Internal Medicine; Visit Provider Nurse Practitioner Family | DX: M47.816 Spondylosis without myelopathy or radiculopathy, lumbar region (principal); R20.0 Anesthesia of skin | CPT/HCPCS: 99212 ==

== ENCOUNTER 2021-07-24 09:13 | Outpatient (REF) | payer OTHER, SELFPAY ==
--- NOTE | ~2021-07-24 | XR_ITS ---
EXAMINATION: CERVICAL AND LUMBAR SPINE. CLINICAL INFORMATION: Pain. COMPARISON: None TECHNIQUE: 3 views lumbar spine and 7 views cervical spine. FINDINGS: Cervical spine: There is mild straightening of cervical lordosis. The vertebral heights, alignment are normal. There is loss of C4-C5, C5-C6 and C6-C7 disc heights with moderate ventral spondylosis. Rest the disc heights are normal. No visible acute fracture, dislocation or subluxation seen. The craniovertebral junction and C1-C2 alignment is normal. On oblique views there is mild narrowing of C4-C5 and C5-C6 neural foramina from uncovertebral hypertrophic changes. Rest of the neural foramina are patent. There is moderate left C2-C3, C3-C4 facet joint arthropathy. The prevertebral vertebral soft tissues are normal. Lumbar spine: There is normal lumbar lordosis. There is severe loss of L4-L5 and L2-L3 heights with moderate endplate sclerosis and spondylosis at the L2-L3 disc level. Rest the disc heights are normal. No visible acute fracture, dislocation or lytic process seen. SI joints are symmetrical. The paravertebral soft tissues are normal. XR/XR cervical spine 4V IMPRESSION: Degenerative disc changes and spondylosis cervical spine see 4-5, C5-C6 and C6-C7 disc levels. There is mild narrowing of right C4-C5 and C5-C6 neural foramina from uncovertebral hypertrophic changes. No acute fracture or dislocation seen. Degenerative disc changes L4-L5 and L2-L3 disc levels with significant endplate sclerosis and spondylosis L2-L3 disc level. No acute fracture or lytic process seen.
--- NOTE | ~2021-07-24 | XR_ITS ---
EXAMINATION: CERVICAL AND LUMBAR SPINE. CLINICAL INFORMATION: Pain. COMPARISON: None TECHNIQUE: 3 views lumbar spine and 7 views cervical spine. FINDINGS: Cervical spine: There is mild straightening of cervical lordosis. The vertebral heights, alignment are normal. There is loss of C4-C5, C5-C6 and C6-C7 disc heights with moderate ventral spondylosis. Rest the disc heights are normal. No visible acute fracture, dislocation or subluxation seen. The craniovertebral junction and C1-C2 alignment is normal. On oblique views there is mild narrowing of C4-C5 and C5-C6 neural foramina from uncovertebral hypertrophic changes. Rest of the neural foramina are patent. There is moderate left C2-C3, C3-C4 facet joint arthropathy. The prevertebral vertebral soft tissues are normal. Lumbar spine: There is normal lumbar lordosis. There is severe loss of L4-L5 and L2-L3 heights with moderate endplate sclerosis and spondylosis at the L2-L3 disc level. Rest the disc heights are normal. No visible acute fracture, dislocation or lytic process seen. SI joints are symmetrical. The paravertebral soft tissues are normal. XR/XR lumbar spine 2-3V IMPRESSION: Degenerative disc changes and spondylosis cervical spine see 4-5, C5-C6 and C6-C7 disc levels. There is mild narrowing of right C4-C5 and C5-C6 neural foramina from uncovertebral hypertrophic changes. No acute fracture or dislocation seen. Degenerative disc changes L4-L5 and L2-L3 disc levels with significant endplate sclerosis and spondylosis L2-L3 disc level. No acute fracture or lytic process seen.
[2021-07-24 10:23] LABS: Estimated Average Glucose 249 mg/dL; Hemoglobin A1c % 10.3 %
[2021-07-24 10:24] LABS: Alanine Aminotransferase 16 U/L (0-31); Albumin Level 3.8 g/dL (3.5-5.0); Alkaline Phosphatase 130 U/L (39-117); Anion Gap 11 (12-20); Aspartate Amino Transferase 11 U/L (5-31); Bilirubin Total 0.7 mg/dL (0.0-1.0); Blood Urea Nitrogen 13 mg/dL (9-16); Calcium 9.4 mg/dL (8.4-10.2); Carbon Dioxide 30 mmol/L (22-29); Chloride 104 mmol/L (96-108); Cholesterol 124 mg/dL; Estimated Glomerular Filt Rate 58; Glucose Fasting 187 mg/dL (60-99); HDL Cholesterol 37 mg/dL; LDL Cholesterol Calculated 62 mg/dl; Potassium 5.2 mmol/L (3.3-5.1); Sodium 140 mmol/L (135-145); Total Protein 6.8 g/dL (6.5-8.0); Triglycerides 129 mg/dL
[2021-07-24 12:08] LABS: Microalbum/Creatinine Ratio Ur 248.1 ug/mg cr
[2021-07-26 02:01] LABS: LDL Cholesterol Direct 75 mg/dL (<100)
== END 2021-07-24 09:14 | disposition home or self-care (01) ==
LOC: HO.XRAY 09:13
PROVIDERS: Absent Provider Nurse Practitioner Family; PCP Internal Medicine; Visit Provider Nurse Practitioner Gerontology
DX: M47.816 Spondylosis without myelopathy or radiculopathy, lumbar region (principal); M54.2 Cervicalgia; E11.65 Type 2 diabetes mellitus with hyperglycemia; Z79.4 Long term (current) use of insulin
CPT/HCPCS: 36415; 72050; 72100; 80053; 80061; 82043; 83036; 83721

== ENCOUNTER → 2021-07-26 10:56 | Outpatient (BNVA) | payer OTHER, SELFPAY | PROVIDERS: PCP Internal Medicine; Visit Provider Nurse Practitioner Gerontology | DX: E11.65 Type 2 diabetes mellitus with hyperglycemia (principal); E11.42 Type 2 diabetes mellitus with diabetic polyneuropathy; E11.22 Type 2 diabetes mellitus with diabetic chronic kidney disease; I12.9 Hypertensive chronic kidney disease with stage 1 through stage 4 chronic kidney disease, or unspecified chronic kidney disease; N18.30 Chronic kidney disease, stage 3 unspecified; R80.9 Proteinuria, unspecified; Z79.4 Long term (current) use of insulin | CPT/HCPCS: 82947; 99212 ==

== ENCOUNTER → 2021-07-31 11:51 | Outpatient (BNVA) | payer OTHER, SELFPAY | PROVIDERS: PCP Internal Medicine; Visit Provider Registered Nurse Diabetes Educator | DX: E11.65 Type 2 diabetes mellitus with hyperglycemia (principal); E11.22 Type 2 diabetes mellitus with diabetic chronic kidney disease; N18.30 Chronic kidney disease, stage 3 unspecified; E11.42 Type 2 diabetes mellitus with diabetic polyneuropathy; Z79.4 Long term (current) use of insulin | CPT/HCPCS: 99211 ==

== ENCOUNTER → 2021-08-29 13:05 | Outpatient (BNVA) | payer OTHER, SELFPAY | PROVIDERS: PCP Internal Medicine; Visit Provider Registered Nurse Diabetes Educator | DX: E11.65 Type 2 diabetes mellitus with hyperglycemia (principal); Z79.4 Long term (current) use of insulin | CPT/HCPCS: 99211 ==

== ENCOUNTER 2021-10-17 09:09 | Outpatient (REF) | payer OTHER, SELFPAY ==
--- NOTE | 2021-10-17 09:14 | EMG_ITS ---
HISTORY OF PRESENT ILLNESS: This is a 66-year-old woman with bilateral upper extremity hand pain and numbness. PHYSICAL EXAMINATION: On examination, she is alert and oriented with normal intellectual functions. Cranial nerves II through XII are normal. Muscle tone and strength are normal in all 4 extremities. No Tinel or Phalen sign. IMPRESSION: Bilateral carpal tunnel syndrome. Nerve conduction EMG study: Mild bilateral carpal tunnel syndrome. Normal EMG of the left C5-T1 innervated muscles. MD DURGA Hernandez/MARISELA / [id number]
== END 2021-10-17 09:10 | disposition home or self-care (01) ==
LOC: HO.NEURO 09:09
PROVIDERS: Visit Provider Nurse Practitioner Family
DX: R20.0 Anesthesia of skin (principal)
CPT/HCPCS: 95885; 95913

== ENCOUNTER 2021-11-22 11:43 | Outpatient (REF) | payer OTHER, SELFPAY ==
--- NOTE | ~2021-11-22 | MM_ITS ---
EXAMINATION: MM SCREENING DIGITAL BREAST TOMOSYNTHESIS, BILATERAL CLINICAL INFORMATION: Screening. Asymptomatic. The lifetime risk of breast cancer based on the Tyrer-Cuzick Model is 4.9%. COMPARISON: Mammography: July 15, 2017 and studies dating back to July 28, 2008 TECHNIQUE: Digital breast tomosynthesis is performed in both the craniocaudal and mediolateral oblique views along with computer-aided detection (CAD). Synthesized 2D images are generated from the tomosynthesis. FINDINGS: There are scattered areas of fibroglandular density (ACR BI-RADS breast composition Category b). About the deep medial aspect of the left breast there is a 5 mm density approximately 8.5 cm from the nipple. No associated calcifications or spiculation is noted. Spot compression view is recommended. There is a stable appearance of the right breast. MM/MM tomosynthesis screening BI IMPRESSION: Medial density left breast for further evaluation with spot compression view and possible ultrasound. ASSESSMENT: BI-RADS 0: Incomplete - Need Additional Imaging Evaluation RECOMMENDATION: 1. Additional views of the left breast 2. Targeted ultrasound if warranted after review of the additional views. 3. Radiology department staff will contact the patient for additional imaging. This patient's information was entered into a reminder system with a target due date for their next mammogram.
== END 2021-11-22 11:44 | disposition home or self-care (01) ==
LOC: HO.MAMMO 11:43
PROVIDERS: Visit Provider Internal Medicine
DX: Z12.31 Encounter for screening mammogram for malignant neoplasm of breast (principal)
CPT/HCPCS: 77063; 77067

== ENCOUNTER 2021-12-07 13:55 | Outpatient (REF) | payer OTHER, SELFPAY ==
--- NOTE | ~2021-12-07 | MM_ITS ---
EXAMINATION: MM DIAGNOSTIC DIGITAL BREAST TOMOSYNTHESIS, LEFT US DIAGNOSTIC ULTRASOUND BREAST, LEFT CLINICAL INFORMATION: Recall from screening for small asymmetric density posterior medial left breast. COMPARISON: Mammography: 11/22/2021, 07/15/2017, 03/28/2016 TECHNIQUE: Digital breast tomosynthesis is performed. 2D images are generated from the tomosynthesis. The following views are obtained: Spot CC x2, rolled CC x2. Ultrasound left breast is targeted to the posterior lower inner breast. Grayscale imaging and color Doppler are performed without and with harmonics. FINDINGS: There are scattered areas of fibroglandular density (ACR BI-RADS breast composition Category b). Additional views demonstrate a small faint smooth oval focal asymmetric density posterior medial left breast just under 5 mm. No spiculation or associated calcification. Finding not seen with certainty on prior exam 2017, chronicity otherwise unknown. Ultrasound left breast shows no cystic or solid mass or architectural abnormality. No ultrasound correlate. Results and management options are discussed with the patient at time of visit. MM/MM tomosynthesis added views L IMPRESSION: -Small faint smooth oval focal asymmetric density posterior medial left breast just under 5 mm. -No ultrasound correlate. ASSESSMENT: BI-RADS 3: Probably Benign RECOMMENDATION: Diagnostic left mammography in 6 months. This patient's information was entered into a reminder system with a target due date for their next mammogram.
== END 2021-12-07 13:56 | disposition home or self-care (01) ==
LOC: HO.MAMMO 13:55
PROVIDERS: PCP Internal Medicine; Visit Provider Internal Medicine
DX: R92.2 Inconclusive mammogram (principal)
CPT/HCPCS: 76642; 77061; 77065

== ENCOUNTER 2021-12-18 12:23 | Outpatient (REF) | payer OTHER, SELFPAY ==
--- NOTE | ~2021-12-18 | US_ITS ---
EXAMINATION: US ABDOMEN COMPLETE CLINICAL INFORMATION: Epigastric pain, left upper quadrant pain. COMPARISON: US retroperitoneal limited (renal only) 09/06/2020. CT abdomen and pelvis without contrast 08/13/2016. TECHNIQUE: Real-time imaging of the abdominal viscera. FINDINGS: PANCREAS: The head and body the pancreas are normal. The tail is not well visualized due to bowel gas. ABDOMINAL AORTA: The proximal, mid, and distal segments are normal in caliber. INFERIOR VENA CAVA: Visualized portions are normal. LIVER: The liver is normal in size. The liver contour is normal. Echotexture is slightly increased. No focal hepatic lesion. There is no intrahepatic biliary duct dilatation seen. GALLBLADDER: The gallbladder is physiologically distended without evidence of stones, sludge, polyps, wall thickening or pericholecystic fluid. There may be a phrygian cap. COMMON BILE DUCT: Normal in caliber measuring 0.3 cm in diameter. RIGHT KIDNEY: There is a small 6 mm cyst in the upper pole. No hydronephrosis or renal calculi. The kidney measures 13.8 cm in maximum dimension. LEFT KIDNEY: Normal. No hydronephrosis. No renal calculi or focal parenchymal lesions. The kidney measures 13.0 cm in maximum dimension. SPLEEN: Normal. The spleen measures 9.1 cm in maximum dimension. FREE FLUID: None. US/US abdomen complete IMPRESSION: Slightly echogenic liver. Small right renal cyst. Limited visualization of the tail the pancreas.
== END 2021-12-18 12:24 | disposition home or self-care (01) ==
LOC: HO.US 12:23
PROVIDERS: Visit Provider Internal Medicine
DX: R10.12 Left upper quadrant pain (principal)
CPT/HCPCS: 76700

== ENCOUNTER 2022-01-21 12:41 | Outpatient (REF) | payer OTHER, SELFPAY | END 2022-01-21 12:42 | disposition home or self-care (01) | LOC: HO.LAB 12:41 | PROVIDERS: PCP Internal Medicine; Visit Provider Urology | DX: R32 Unspecified urinary incontinence (principal); N39.0 Urinary tract infection, site not specified; N32.81 Overactive bladder; E11.65 Type 2 diabetes mellitus with hyperglycemia; Z79.4 Long term (current) use of insulin | CPT/HCPCS: 51701; 51798; 87086; 99202 ==

== ENCOUNTER → 2022-01-22 12:02 | Outpatient (BNVA) | payer OTHER, SELFPAY | PROVIDERS: PCP Internal Medicine; Visit Provider Nurse Practitioner Family | DX: M47.816 Spondylosis without myelopathy or radiculopathy, lumbar region (principal); G56.03 Carpal tunnel syndrome, bilateral upper limbs | CPT/HCPCS: 99212 ==

== ENCOUNTER → 2022-01-29 12:56 | Outpatient (BNVA) | payer OTHER, SELFPAY | PROVIDERS: PCP Internal Medicine; Referring Provider Internal Medicine; Visit Provider Nurse Practitioner Family | DX: Z12.11 Encounter for screening for malignant neoplasm of colon (principal); K59.01 Slow transit constipation | CPT/HCPCS: 99202; 99212 ==

== ENCOUNTER 2022-02-22 14:47 | Outpatient (REF) | payer OTHER, SELFPAY | END 2022-02-22 14:48 | disposition home or self-care (01) | LOC: HO.LNP 14:47 | PROVIDERS: Visit Provider Urology | DX: R31.29 Other microscopic hematuria (principal); R30.0 Dysuria; N32.9 Bladder disorder, unspecified; F17.200 Nicotine dependence, unspecified, uncomplicated; Z71.6 Tobacco abuse counseling | CPT/HCPCS: 52000; 88121; 99212 ==

== ENCOUNTER 2022-03-05 08:32 | Day surgery (SDC) | payer OTHER, SELFPAY ==
--- NOTE | 2022-03-04 14:54 | HO.ANESPROP2 ---
Documented by User: Winnie Mcnally NP 03/04/22 14:56 HPI - Anesthesia Eval Consult details Narrative: 67yo F for TUR Bladder Tumor with bladder biopsy PMFSH Active Problems Active Problems: All Active Problems (Updated 02/22/22 @ 14:23 by Landy Roche MD) Microscopic hematuria (Acute) Lesion of bladder (Acute) Dysuria (Acute) Bilateral carpal tunnel syndrome (Acute) Nicotine dependence (Acute) Urinary frequency (Acute) Urinary incontinence (Acute) OAB (overactive bladder) (Acute) Hyperlipidemia (Acute) Toe fracture, right (Acute) Lumbar spondylosis (Acute) Type 2 diabetes mellitus with hyperglycemia, with long-term current use of insulin (Acute) Type 2 diabetes mellitus with chronic kidney disease (Acute) Chronic kidney disease, stage 3 unspecified (Acute) Proteinuria (Acute) Type 2 diabetes mellitus with diabetic polyneuropathy (Acute) Essential hypertension (Acute) Past Medical History Medical History Asthma Chronic kidney disease, stage 3 unspecified COPD (chronic obstructive pulmonary disease) Depression Essential hypertension Fibromyalgia Hyperlipidemia Lumbar spondylosis Proteinuria Syncope 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 Mother Heart disease CVD (cardiovascular disease) Diabetes Surgical History Surgical History Hx of colonoscopy Hx of mammogram Hx of oral surgery Hx of tubal ligation Social History Social History Household Members: Children Alcohol intake: never Patient Tobacco Use Status: Current everyday Tobacco user Tobacco use type: Cigarette Cigarettes Per Day: 4 Are you DNR?: No Advance Directives: No Advance Directives Information Provided: Yes Meds Allergies Allergy/AdvReac Type Severity Reaction Status Date / Time insulin detemir Allergy Intermediate Rash Verified 01/29/22 13:05 penicillin V Allergy Intermediate Rash Verified 01/29/22 13:05 acetaminophen [From Tylenol] Allergy Mild ITCH,RASH Verified 01/29/22 13:05 iodine [Iodine] Allergy Mild HIVES Verified 01/29/22 13:05 penicillin G [Penicillin G] Allergy Mild RASH Verified 01/29/22 13:05 latex [LATEX] Allergy Unknown RASH Verified 01/29/22 13:05 trimerosal Allergy Intermediate rash Uncoded 01/22/22 12:28 Latex Gloves Allergy Mild Rash Uncoded 01/22/22 12:28 METAL Allergy Mild HIVES Uncoded 01/22/22 12:28 Home Medications Medication Instructions Recorded Confirmed Last Taken Type albuterol sulfate 90 mcg/actuation 2 puff inhalation Q6H PRN Wheezing 04/18/20 03/05/22 Unknown History aerosol inhaler aspirin 81 mg tablet,delayed 81 mg PO DAILY 04/18/20 03/05/22 02/25/22 History release atenolol 25 mg tablet 25 mg PO BID 04/18/20 03/05/22 03/05/22 History fluticasone 500 mcg-salmeterol 50 1 inh inhalation BID 04/18/20 03/05/22 Unknown History mcg/dose blistr powdr for inhalation (Advair Diskus) gabapentin 800 mg tablet 800 mg PO TID 04/18/20 03/05/22 03/05/22 History losartan 100 mg tablet 100 mg PO DAILY 04/18/20 03/05/22 03/05/22 History montelukast 10 mg tablet 10 mg PO BEDTIME 04/18/20 03/05/22 Unknown History (Andresulair) insulin syringe-needle U-100 1 mL #10 ea 05/29/20 01/21/22 Unknown History 31 gauge x 15/64 zolpidem 10 mg tablet 10 mg PO BEDTIME PRN Pain 05/29/20 03/05/22 Unknown History Exam Exam Date and Time: March 04, 2022 1454 Narrative Narrative: EKG 05/2021 Vent. Rate : 083 BPM ? ? Atrial Rate : 083 BPM ?? P-R Int : 170 ms? QRS Dur : 098 ms ? ? QT Int : 370 ms ? ? ? P-R-T Axes : 059 006 066 degrees ?? QTc Int : 434 ms ? 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 Mother Heart disease CVD (cardiovascular disease) Diabetes Family history of problems with anesthesia: No Surgical History Surgical History Hx of colonoscopy Hx of mammogram Hx of oral surgery Hx of tubal ligation History of Problems with Anesthesia: No Social History Social History Household Members: Children Alcohol intake: never Patient Tobacco Use Status: Current everyday Tobacco user Tobacco use type: Cigarette Cigarettes Per Day: 4 Are you DNR?: No Advance Directives: No Advance Directives Information Provided: Yes Meds Allergies Allergy/AdvReac Type Severity Reaction Status Date / Time insulin detemir Allergy Intermediate Rash Verified 01/29/22 13:05 penicillin V Allergy Intermediate Rash Verified 01/29/22 13:05 acetaminophen [From Tylenol] Allergy Mild ITCH,RASH Verified 01/29/22 13:05 iodine [Iodine] Allergy Mild HIVES Verified 01/29/22 13:05 penicillin G [Penicillin G] Allergy Mild RASH Verified 01/29/22 13:05 latex [LATEX] Allergy Unknown RASH Verified 01/29/22 13:05 trimerosal Allergy Intermediate rash Uncoded 01/22/22 12:28 Latex Gloves Allergy Mild Rash Uncoded 01/22/22 12:28 METAL Allergy Mild HIVES Uncoded 01/22/22 12:28 Home Medications Medication Instructions Recorded Confirmed Last Taken Type albuterol sulfate 90 mcg/actuation 2 puff inhalation Q6H PRN Wheezing 04/18/20 03/05/22 Unknown History aerosol inhaler aspirin 81 mg tablet,delayed 81 mg PO DAILY 04/18/20 03/05/22 02/25/22 History release atenolol 25 mg tablet 25 mg PO BID 04/18/20 03/05/22 03/05/22 History fluticasone 500 mcg-salmeterol 50 1 inh inhalation BID 04/18/20 03/05/22 Unknown History mcg/dose blistr powdr for inhalation (Advair Diskus) gabapentin 800 mg tablet 800 mg PO TID 04/18/20 03/05/22 03/05/22 History losartan 100 mg tablet 100 mg PO DAILY 04/18/20 03/05/22 03/05/22 History montelukast 10 mg tablet 10 mg PO BEDTIME 04/18/20 03/05/22 Unknown History (Singulair) insulin syringe-needle U-100 1 mL #10 ea 05/29/20 01/21/22 Unknown History 31 gauge x 15/64 zolpidem 10 mg tablet 10 mg PO BEDTIME PRN Pain 05/29/20 03/05/22 Unknown History Exam Airway Mallampati Class: IV TM Dist: >3cm Neck ROM: Full Denture: Upper Partial: Lower Loose/Missing/Broken Teeth: Yes Heart: S1,S2 Lungs: b/l breath sounds Assessment and Plan Assessment Anesthesia Assessment: Anesthesia Plan Discussed Final Anesthetic Review Family History of Problems with Anesthesia: No History of Problems with Anesthesia: No NPO: Yes ASA Class: III Final Preanesthetic Review: Meds/Allgs Chart Reviewed, Consent Obtained/Reviewed and Anes Risks/Benef Reviewed Patient Risk: High Procedure Risk: Intermediate Anesthetic Plan Anesthetic Plan: GA Disposition: Standard PACU
[2022-03-05] VITALS (9 sets, daily range): BP systolic 115–136; BP diastolic 52–74; PULSE 64–92; RESP 16–20; TEMP 36.1–36.6; O2SAT 93–99; BMI 33.2
[2022-03-05 09:32] LABS: Glucose, Whole Blood 210 mg/dL (60-115)
[2022-03-05 10:24] LABS: Hematocrit 41.3 % (37.0-47.0); Hemoglobin 13.6 g/dl (12.0-16.0); Mean Corpuscular HGB Conc 32.9 g/dl (31.0-35.0); Mean Corpuscular Hemoglobin 29.8 pg (27.0-33.0); Mean Corpuscular Volume 90.4 fL (80.0-98.0); Mean Platelet Volume 10.9 fL (9.4-12.3); Platelet Count 311 X10*3/uL (160-400); Red Blood Count 4.57 X10*6/uL (4.20-5.50); Red Cell Distribution Width 13.7 % (11.0-16.0); White Blood Count 11.3 X10*3/uL (4.8-10.8)
--- NOTE | 2022-03-05 10:26 | PC.NURSE ---
daughter able to take off pateints nany
[2022-03-05 10:50] LABS: Anion Gap 15 (12-20); Blood Urea Nitrogen 27 mg/dL (9-16); Calcium 9.3 mg/dL (8.4-10.2); Carbon Dioxide 25 mmol/L (22-29); Chloride 104 mmol/L (96-108); Creatinine Clr Calc Pharmacy 62.2; Estimated Glomerular Filt Rate 55; Glucose Fasting 209 mg/dL (60-99); Potassium 5.2 mmol/L (3.3-5.1); Sodium 139 mmol/L (135-145)
[2022-03-05] MEDS: Albuterol Sulfate (0.083%) 2.5 MG/3 ML VIAL.NEB INHALE (10:57)
[2022-03-05] MEDS: Lactated Ringers 1,000 ML 100 ML IVCONT (11:02)
--- NOTE | 2022-03-05 12:35 | MHC.SHP ---
Pre-Procedural Eval Section A Date of Service: 03/05/22 The patient is an INPATIENT: No Section B Chief Complaint: Bladder disorder, unspecified Allergies: Allergies Allergy/AdvReac Type Severity Reaction Status Date / Time insulin detemir Allergy Intermediate Rash Verified 01/29/22 13:05 penicillin V Allergy Intermediate Rash Verified 01/29/22 13:05 acetaminophen [From Tylenol] Allergy Mild ITCH,RASH Verified 01/29/22 13:05 iodine [Iodine] Allergy Mild HIVES Verified 01/29/22 13:05 penicillin G [Penicillin G] Allergy Mild RASH Verified 01/29/22 13:05 latex [LATEX] Allergy Unknown RASH Verified 01/29/22 13:05 trimerosal Allergy Intermediate rash Uncoded 01/22/22 12:28 Latex Gloves Allergy Mild Rash Uncoded 01/22/22 12:28 METAL Allergy Mild HIVES Uncoded 01/22/22 12:28 Plan I have reviewed the history and physical and performed a pertinent physical examination on my patient. No changes have occurred unless specified. Cystoscopy bladder biopsies.
--- NOTE | 2022-03-05 13:31 | W.PM.OPN ---
Operative Note Operative Note Date of Service: 03/05/22 Narrative: PREOP DIAGNOSIS: Dysuria, erythematous bladder lesions POSTOP DIAGNOSIS: Dysuria, erythematous bladder lesions, Cystitis follicularis, urethral stenosis PROCEDURE: CYSTOSCOPY, Urethral Dilation, transurethral resection bladder lesions 1 cm Anesthesia: General Indications: Torrie is a 67 year female with persistent dysuria and microscopic hematuria, office cystoscopy, erythematous bladder lesions visualized. Details of procedure: The patient was brought into the operating room placed on the OR table in supine position. 2 g of Ancef IV. General anesthesia was administered. The patient was repositioned into lithotomy position, prepped and draped in the usual sterile fashion. Time-out was done per protocol. On attempt to place the 22 fr cystoscope, there was resistance, the urethra was dilated sequentially from 16 fr to 24 fr. A 22 fr cystoscope was placed transurethrally into the bladder. The right and left ureteral orifices were visualized. The entire bladder was visualized. 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 Cold cup resection of posterior lesion and left lateral wall lesion was done. The resectoscope with roller ball attachment was placed to obtain adequate hemastasis. The resectoscope was removed. 2% lidocaine urojet was passed transurethrally into the bladder. The patient was brought out of anesthesia and taken to recovery in stable condition. Complications: None Drains: None
[2022-03-05] MEDS: oxyCODONE HCl Immed Release 5 MG TABLET PO (14:17)
== END 2022-03-05 15:07 | disposition home or self-care (01) ==
PROVIDERS: Nurse Practitioner; PCP Internal Medicine; Visit Provider Urology
PROC: 0TBB8ZZ Excision of Bladder, Via Natural or Artificial Opening Endoscopic (ICD-10-PCS; CPT 52224; principal; 2022-03-05 10:50)
DX: N30.00 Acute cystitis without hematuria (principal); N30.20 Other chronic cystitis without hematuria; N35.92 Unspecified urethral stricture, female; R80.9 Proteinuria, unspecified; N39.0 Urinary tract infection, site not specified; E11.22 Type 2 diabetes mellitus with diabetic chronic kidney disease; I12.9 Hypertensive chronic kidney disease with stage 1 through stage 4 chronic kidney disease, or unspecified chronic kidney disease; N18.30 Chronic kidney disease, stage 3 unspecified; E11.65 Type 2 diabetes mellitus with hyperglycemia; E11.42 Type 2 diabetes mellitus with diabetic polyneuropathy; Z79.4 Long term (current) use of insulin; J45.909 Unspecified asthma, uncomplicated; E78.5 Hyperlipidemia, unspecified; Z79.51 Long term (current) use of inhaled steroids; Z79.82 Long term (current) use of aspirin; Z79.899 Other long term (current) drug therapy; Z88.0 Allergy status to penicillin; Z88.8 Allergy status to other drugs, medicaments and biological substances; Z91.040 Latex allergy status; Z91.041 Radiographic dye allergy status; F17.210 Nicotine dependence, cigarettes, uncomplicated
CPT/HCPCS: 52224; 36415; 80048; 82947; 85027; 88305; 94640; J0690; J2250; J3010

== ENCOUNTER 2022-03-25 13:03 | Outpatient (REF) | payer OTHER, SELFPAY ==
[2022-03-25 15:41] LABS: Alanine Aminotransferase 15 U/L (0-31); Alkaline Phosphatase 139 U/L (39-117); Anion Gap 13 (12-20); Aspartate Amino Transferase 12 U/L (5-31); Bilirubin Total 0.4 mg/dL (0.0-1.0); Blood Urea Nitrogen 17 mg/dL (9-16); Calcium 9.7 mg/dL (8.4-10.2); Carbon Dioxide 28 mmol/L (22-29); Chloride 104 mmol/L (96-108); Estimated Glomerular Filt Rate > 60; Glucose Random 250 mg/dL (60-115); Potassium 4.6 mmol/L (3.3-5.1); Sodium 140 mmol/L (135-145); Total Protein 6.9 g/dL (6.5-8.0)
[2022-03-25 16:03] LABS: Amphetamine Screen Urine Not Detected (Not Detect); Barbiturates, Urine Not Detected (Not Detect); Benzodiazepines Screen Urine Not Detected (Not Detect); Cannabinoid Screen Urine Not Detected (Not Detect); Cocaine Screen Urine Not Detected (Not Detect); Fentanyl, urine Not Detected (Not Detect); Opiate Screen Urine Not Detected (Not Detect); Phencyclidine Screen Urine Not Detected (Not Detect)
== END 2022-03-25 13:04 | disposition home or self-care (01) ==
LOC: HO.LAB 13:03
PROVIDERS: Absent Provider Nurse Practitioner Family; PCP Internal Medicine; Visit Provider Urology
DX: Z51.81 Encounter for therapeutic drug level monitoring (principal); R35.0 Frequency of micturition; R31.29 Other microscopic hematuria; R30.0 Dysuria; N39.41 Urge incontinence; N32.81 Overactive bladder; N30.90 Cystitis, unspecified without hematuria; F17.200 Nicotine dependence, unspecified, uncomplicated; M47.816 Spondylosis without myelopathy or radiculopathy, lumbar region; Z79.899 Other long term (current) drug therapy
CPT/HCPCS: 51798; 80053; 80307; 99212

== ENCOUNTER 2022-05-28 14:36 | Outpatient (REF) | payer OTHER, SELFPAY ==
--- NOTE | ~2022-05-28 | MM_ITS ---
EXAMINATION: MM DIAGNOSTIC DIGITAL BREAST TOMOSYNTHESIS, LEFT CLINICAL INFORMATION: Six-month follow-up left breast density. COMPARISON: Mammography: 12/07/2021 and studies dating back to 03/28/2016. TECHNIQUE: Digital breast tomosynthesis is performed in both the craniocaudal and mediolateral oblique views along with computer-aided detection (CAD). Synthesized 2D images are generated from the tomosynthesis. FINDINGS: There are scattered areas of fibroglandular density (ACR BI-RADS breast composition Category b). There is stable parenchymal pattern of the left breast with no new abnormal dominant masses or suspicious grouping of microcalcifications. There is a stable appearance of the well-circumscribed density about the deep medial aspect measuring approximately 6 x 4 x 3 mm in size. Results are provided to the patient at time of visit by the technologist. MM/MM tomosynthesis diagnostic LT IMPRESSION: There are no significant changes from prior study. ASSESSMENT: BI-RADS 3: Probably Benign RECOMMENDATION: Diagnostic mammography in 6 months. This patient's information was entered into a reminder system with a target due date for their next mammogram.
== END 2022-05-28 14:37 | disposition home or self-care (01) ==
LOC: HO.MAMMO 14:36
PROVIDERS: PCP Internal Medicine; Visit Provider Internal Medicine
DX: R92.2 Inconclusive mammogram (principal)
CPT/HCPCS: 77061; 77065

== ENCOUNTER 2022-06-13 13:17 | Outpatient (REF) | payer OTHER, SELFPAY ==
[2022-06-13 16:58] LABS: Urine Cytology See Pathology rpt
== END 2022-06-13 13:18 | disposition home or self-care (01) ==
LOC: HO.LAB 13:17
PROVIDERS: PCP Internal Medicine; Visit Provider Urology
DX: R31.29 Other microscopic hematuria (principal); R30.0 Dysuria; N32.81 Overactive bladder; N39.41 Urge incontinence; F17.200 Nicotine dependence, unspecified, uncomplicated; Z71.6 Tobacco abuse counseling
CPT/HCPCS: 51798; 88112; 99212

== ENCOUNTER → 2022-07-24 11:02 | Outpatient (BNVA) | payer OTHER, SELFPAY | PROVIDERS: PCP Internal Medicine; Visit Provider Nurse Practitioner Family | DX: M47.816 Spondylosis without myelopathy or radiculopathy, lumbar region (principal); M25.561 Pain in right knee; M25.562 Pain in left knee; M54.50 Low back pain, unspecified | CPT/HCPCS: 99212 ==

== ENCOUNTER 2022-09-18 13:47 | Outpatient (AMB) | payer OTHER, SELFPAY ==
--- NOTE | 2022-09-18 13:48 | A.OFFVIS_ITS ---
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 Facilities Required: No Accompanied by: Self / Same As Patient Allergies insulin detemir Allergy (Intermediate, Verified 09/18/22 13:55) Rash penicillin V Allergy (Intermediate, Verified 09/18/22 13:55) Rash acetaminophen [From Tylenol] Allergy (Mild, Verified 09/18/22 13:55) ITCH,RASH iodine [Iodine] Allergy (Mild, Verified 09/18/22 13:55) HIVES penicillin G [Penicillin G] Allergy (Mild, Verified 09/18/22 13:55) RASH latex [LATEX] Allergy (Unknown, Verified 09/18/22 13:55) RASH trimerosal Allergy (Intermediate, Uncoded 09/18/22 13:55) rash Latex Gloves Allergy (Mild, Uncoded 09/18/22 13:55) Rash METAL Allergy (Mild, Uncoded 09/18/22 13:55) HIVES Medication List - Last Reconciled 09/18/22 by Landy Roche MD albuterol sulfate 90 mcg/actuation 2 puffs inhalation Q6H PRN amlodipine 5 mg PO QPM aspirin 81 mg PO DAILY atenolol 25 mg PO BID atorvastatin 40 mg PO BEDTIME blood sugar diagnostic (FreeStyle Lite Strips) four times a day blood-glucose meter (FreeStyle Lite Meter kit) As directed [Cane As directed] clobetasol-emollient 0.05 % 1 appl topical BID 1 week docusate sodium 100 mg PO BEDTIME dulaglutide (Trulicity) 3 mg (0.5 mL) subcut QWEEK 28 days flash glucose scanning reader (FreeStyle Crystal 2 [place]) 1 ea miscellaneous DIRECTED 30 days flash glucose sensor (FreeStyle Crystal 2 Sensor kit) 1 ea miscellaneous Q2W fluticasone propion-salmeterol 500-50 mcg/dose (Advair Diskus) 1 inh inhalation BID gabapentin 800 mg PO TID insulin aspart U-100 (Novolog FlexPen U-100 Insulin aspart) 17 units (0.17 mL) subcut TID 30 days insulin degludec (Tresiba FlexTouch U-200 insulin) 60 units (0.3 mL) subcut BEDTIME 30 days insulin syringe-needle U-100 As directed lancets (FreeStyle Lancets) four times a day losartan 100 mg PO DAILY montelukast (Singulair) 10 mg PO BEDTIME oxybutynin chloride ER 10 mg PO DAILY pen needle, diabetic (BD Ultra-Fine Janene Pen Needle) As directed four times a day tramadol 100 mg (2 x 50 mg) PO BID zolpidem 10 mg PO BEDTIME PRN HPI HPI Comments History of Present Illness Details Torrie is a 67-year-old female who presents to the office for hematuria and cystitis follow-up. LV--06/13/22- Here for fu, state she has seen blood in her urine, currently denies dysuria using oxybutynin bid for OAB symptoms, has helped. still leaks, c/os of irritation vaginal area Evaluation today - no signs of infection, blood 25 Blayne/uL, exam- vulvar irritation Plan - urine cytology, clobetosol cream, cont oxybutynin fu in 3 months 09/18/22-- The patient took oxybutynin for a month and the prescription was not renewed. States having benefits with the medication. The patient is diabetic and states that when her blood glucose levels are not un nalini control she has urinary symptoms of urgency and frequency. Denies hematuria. Occasional dysuria while using Wipies. Evaluation today: Blood: negative, leukocytes: negative. Bladder scan PVR: 0 mL. Plan: Orders were written for oxybutynin 10 mg QD for 90 days. Follow-up after 6 months or sooner if needed. 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 Mother Heart disease CVD (cardiovascular disease) Diabetes Social History Household Members: Children Alcohol intake: never Patient Tobacco Use Status: Current everyday Tobacco user Tobacco use type: Cigarette Cigarettes Per Day: 4 Review of Systems Const All systems reviewed & are unremarkable except as noted in HPI and below Reports no additional complaints Eyes Reports no additional complaints ENT Reports no additional complaints Card Denies dyspnea Resp Denies cough and Denies dyspnea GI Reports no additional complaints Reports no additional complaints Musc Reports no additional complaints Skin/Breast Denies rash and Denies unusual bruising Neuro Reports no additional complaints Psych Reports no additional complaints Endo Reports no additional complaints Joe/Lymph Reports no additional complaints Aller/Immun Reports no additional complaints Office Procedures Post Void Residual Post Residual Void Post Void Residual (PVR): 0 [id number] Void Residual by ultrasound Results AMB Urinalysis, Automated UA Leukoctes Gisselle/uL Last Edit by Luz Marina Rodriguez CMA on 09/18/22 14:04 UA Nitrite Positive Last Edit by Luz Marina Rodriguez CMA on 09/18/22 14:04 UA Urobilinogen 0.2 mg/dL Last Edit by Luz Marina Rodriguez CMA on 09/18/22 14:04 UA Protein 15 mg/dL Last Edit by Luz Marina Rodriguez CMA on 09/18/22 14:04 UA pH 5.5 Last Edit by Luz Marina Rodriguez CMA on 09/18/22 14:04 UA Blood Blayne/uL Last Edit by Luz Marina Rodriguez CMA on 09/18/22 14:04 UA Specific [place] 1.015 Last Edit by Luz Marina Rodriguez CMA on 09/18/22 14:04 UA Ketone Last Edit by Luz Marina Rodriguez CMA on 09/18/22 14:04 UA Bilirubin mg/dL Last Edit by Luz Marina Rodriguez CMA on 09/18/22 14:04 UA Glucose 1000 mg/dL Last Edit by Luz Marina Rodriguez CMA on 09/18/22 14:04 Results Reviewed Results Reviewed: Laboratory Last Values Urine pH (Auto) 5.5 09/18/22 13:49 Specific [place] (Auto) 1.015 09/18/22 13:49 Urine Protein (Auto) 15 mg/dL 09/18/22 13:49 Glucose (UA)(Auto) 1000 mg/dL 09/18/22 13:49 Urine Nitrite (Auto) Positive 09/18/22 13:49 Urine Urobilinogen (Auto) 0.2 mg/dL 09/18/22 13:49 Assessment & Plan Assessment & Plan (1) Nicotine dependence: Code(s): F17.200 - Nicotine dependence, unspecified, uncomplicated (2) Microscopic hematuria: Code(s): R31.29 - Other microscopic hematuria (3) Dysuria: Code(s): R30.0 - Dysuria (4) Cystitis: Code(s): N30.90 - Cystitis, unspecified without hematuria (5) OAB (overactive bladder): Code(s): N32.81 - Overactive bladder (6) Urge incontinence of urine: Code(s): N39.41 - Urge incontinence Plan Orders were written for oxybutynin 10 mg QD for 90 days. Follow-up after 6 months or sooner if needed. Orders: Orders AMB Urinalysis Automated 09/18/22 N39.41 - Urge incontinence AMB Post Void Residual by ultrasound 09/18/22 N32.81 - Overactive bladder Medications: New oxybutynin chloride ER 10 mg PO DAILY 90 tabs 3RF Patient Instructions: The patient had an opportunity to ask questions regarding treatment plan. All questions were answered. Imaging, Laboratory studies and physical exam results were discussed and reviewed in detail. No major barriers to understanding were identified. The patient expressed understanding and agreement with the above treatment plan. The patient is aware they should contact our office by phone for worsening of their current condition or the appearance of new symptoms. Compliance is encouraged with any medications and followup testing that is ordered. It is a privilege to be allowed the opportunity to participate in the urologic care of your patient. If you have any questions or concerns regarding treatment for the above conditions please do not hesitate to contact me. The office telephone contact is [phone]. This note is constructed in part using voice recognition software. 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 Yours sincerely, Landy Roche MD Coding Level of Care Code Est Pt Level 3 (33640) Diagnoses Nicotine dependence F17.200 Microscopic hematuria R31.29 Dysuria R30.0 Cystitis N30.90 OAB (overactive bladder) N32.81 Urge incontinence of urine N39.41 CPT Codes Post Residual Void - PVR CPT Code: 66884-[id number] Void Residual by ultrasound ([id number])
== END 2022-09-18 14:16 | disposition home or self-care (01) ==
LOC: HO.HUSH 13:47
PROVIDERS: PCP Internal Medicine; Visit Provider Urology
DX: R31.29 Other microscopic hematuria (principal); R30.0 Dysuria; F17.200 Nicotine dependence, unspecified, uncomplicated; N30.90 Cystitis, unspecified without hematuria; N32.81 Overactive bladder; N39.41 Urge incontinence
CPT/HCPCS: 99213

== ENCOUNTER → 2022-09-18 13:47 | Outpatient (BNVA) | payer OTHER, SELFPAY | PROVIDERS: PCP Internal Medicine; Visit Provider Urology | DX: N30.91 Cystitis, unspecified with hematuria (principal); R30.0 Dysuria; N32.81 Overactive bladder; N39.41 Urge incontinence; F17.200 Nicotine dependence, unspecified, uncomplicated | CPT/HCPCS: 51798; 99212 ==

== ENCOUNTER 2022-12-02 | Outpatient (REF) | payer OTHER, SELFPAY ==
[2022-12-03 15:28] LABS: BV Int Neg Control Negative (Negative); BV Int Pos Control Positive (Positive)
[2022-12-05 04:13] LABS: HPV mRNA E6/E7 rflx Not Detected (Not Detected)
== END 2022-12-02 00:01 | disposition home or self-care (01) ==
LOC: HO.HHCLNP
PROVIDERS: Visit Provider Advanced Practice Midwife
DX: Z12.4 Encounter for screening for malignant neoplasm of cervix (principal); Z11.51 Encounter for screening for human papillomavirus (HPV); N89.8 Other specified noninflammatory disorders of vagina
CPT/HCPCS: 87480; 87510; 87624; 87660; 88142

== ENCOUNTER 2022-12-30 10:42 | Outpatient (REF) | payer OTHER, SELFPAY ==
--- NOTE | ~2022-12-30 | MM_ITS ---
EXAMINATION: MM DIAGNOSTIC DIGITAL BREAST TOMOSYNTHESIS, BILATERAL CLINICAL INFORMATION: 6 month follow-up for small asymmetric density posterior medial left breast. Patient also due for bilateral screening exam. COMPARISON: Mammography: 05/28/2022, 11/22/2021, 07/15/2017, and dating back to 2016. Ultrasound left breast 12/07/2021. TECHNIQUE: Digital breast tomosynthesis is performed in both the craniocaudal and mediolateral oblique views along with computer-aided detection (CAD). Synthesized 2D images are generated from the tomosynthesis. FINDINGS: There are scattered areas of fibroglandular density (ACR BI-RADS breast composition Category b). There are no suspicious masses, suspicious grouped calcifications, or areas of architectural distortion. The parenchymal pattern is stable from prior exams. The previously seen asymmetric density in the posterior medial left breast is no longer visualized. There is mild bilateral retroareolar duct ectasia, similar to prior exams. Stable benign appearing circumscribed oval nodule right breast upper outer quadrant, anterior one third, is unchanged. MM/MM tomosynthesis diagnostic BI IMPRESSION: There are no significant changes from prior study. There is no mammographic evidence for malignancy. Stable benign findings. Recommend the patient return to routine annual screening. ASSESSMENT: BI-RADS BI-RADS 2 - Benign Findings RECOMMENDATION: 1 year F/U Results were provided to the patient at time of visit by the technologist. This patient's information was entered into a reminder system with a target due date for their next mammogram.
== END 2022-12-30 10:43 | disposition home or self-care (01) ==
LOC: HO.MAMMO 10:42
PROVIDERS: PCP Internal Medicine; Visit Provider Internal Medicine
DX: R92.1 Mammographic calcification found on diagnostic imaging of breast (principal)
CPT/HCPCS: 77062; 77066

== ENCOUNTER → 2022-12-30 11:00 | Outpatient (BNV) | payer OTHER, SELFPAY | PROVIDERS: PCP Internal Medicine; Visit Provider Radiology Diagnostic Radiology | DX: N63.11 Unspecified lump in the right breast, upper outer quadrant (principal) | CPT/HCPCS: 77062; 77066 ==

== ENCOUNTER 2023-01-22 10:55 | Outpatient (AMB) | payer OTHER, SELFPAY ==
--- NOTE | 2023-01-22 10:57 | MHC.OFFVIS ---
Intake Vital Signs 01/22/23 11:07 Height 5 ft 6 in Weight 208 lb 8.917 oz BMI 33.7 BP 132/64 Blood Pressure Location Lt brachial Position Sitting Pulse 103 H Pulse Source Pulse Oximeter Temp 97 F Temp Source Skin Pulse Oximetry (%) 95 Oxygen Delivery Method Room Air Intake Visit Reasons: osteoarthritis Intake Note: Patient presents today to follow up on OA. Patient reports she is still waiting for cane that was prescribed by prior provider. [place] Required: No Accompanied by: Self / Same As Patient Allergies insulin detemir Allergy (Intermediate, Verified 01/22/23 11:07) Rash penicillin V Allergy (Intermediate, Verified 01/22/23 11:07) Rash acetaminophen [From Tylenol] Allergy (Mild, Verified 01/22/23 11:07) ITCH,RASH iodine [Iodine] Allergy (Mild, Verified 01/22/23 11:07) HIVES penicillin G [Penicillin G] Allergy (Mild, Verified 01/22/23 11:07) RASH latex [LATEX] Allergy (Unknown, Verified 01/22/23 11:07) RASH trimerosal Allergy (Intermediate, Uncoded 01/22/23 11:07) rash Latex Gloves Allergy (Mild, Uncoded 01/22/23 11:07) Rash METAL Allergy (Mild, Uncoded 01/22/23 11:07) HIVES HPI HPI Comments History of Present Illness Details Torrie is a 67yo F who presents for follow-up of generalized OA. Patient presents for follow-up of her chronic back and knee pain. She reports that her low back pain is increased after the fall in May. The knee pain is her most prominent pain symptom and it worsens with use. She states that she has frequent falls - when she tries to put weight on her legs, the knees give out. She manages her pain with Tramadol and gabapentin - pain contract in effect. She denies numbness in her lower extremities. Continues with Carpal tunnel symptoms both hands for which she wears cock-up splints at night EMG 09/2021.. She continues to experience rash on the upper arm that comes with the season changes, also from the sun-exposer (non present). 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 She describes mixed stress and urge incontinence that has been present for at least 6 years, she is following with Urology. [facility] Medical History (Updated 01/22/23 @ 14:46 by FRANCISCA Mendosa) Knee instability Back pain at L4-L5 level Knee pain, right Knee pain, left UTI (urinary tract infection) Proteinuria Hyperlipidemia Lumbar spondylosis Fibromyalgia Syncope COPD (chronic obstructive pulmonary disease) Depression Asthma Type 2 diabetes mellitus with hyperglycemia, with long-term current use of insulin Type 2 diabetes mellitus with chronic kidney disease Chronic kidney disease, stage 3 unspecified Type 2 diabetes mellitus with diabetic polyneuropathy Essential hypertension Surgical History Hx of mammogram Hx of colonoscopy Hx of oral surgery Hx of tubal ligation Family History Father No problems noted. Mother Heart disease CVD (cardiovascular disease) Diabetes Social History Household Members: Children Alcohol intake: never Patient Tobacco Use Status: Current everyday Tobacco user Tobacco use type: Cigarette Cigarettes Per Day: 4 Review of Systems Const Details: Negative for appetite change, weight change, fever, chills, malaise and fatigue Eyes Details: Negative for vision change, dry eyes,headaches and dizziness ENT Details: Negative for hearing change, oral ulcer Card Details: Negative chest pain, edema and syncope Resp Details: Negative for SOB, cough and wheezing GI Details: Negative indigestion/heartburn, abdominal pain, nausea, bowel changes, diarrhea, constipation and bloody stool. Details: Negative for dysuria, hematuria, nocturia Musc Reports as per HPI Skin/Breast Reports as per HPI Neuro Details: Negative for changes in speech, tingling and weakness Joe/Lymph Details: Negative for excessive bruising or bleeding. Physical Exam Vital Signs: Last Vital Signs Temp 97 F 01/22/23 11:07 Pulse 103 H 01/22/23 11:07 BP 132/64 01/22/23 11:07 Pulse Ox 95 01/22/23 11:07 Oxygen Delivery Method Room Air 01/22/23 11:07 BMI result Body Mass Index 33.7 APPEARANCE: Patient in no acute distress EYES: no redness, pupils equal and reactive to light, eyelids normal EARS: External ear normal NOSE/SINUS: Airflow through both nares, no nasal discharge, no bleeding THROAT: Oral mucosa moist, no ulcerations NECK: No thyromegaly or masses, no adenopathy, trachea midline. HEART: Regular rhythm, S1-S2 heard, no murmurs, rubs or gallops. LUNG: Wheeze noted throughout bilaterally, respiratory rate regular and nonlabored. ABD: Normal bowel sounds, round, abdomen soft, non-tender. EXTREMITIES: No edema, no calf tenderness, normal peripheral pulses. NEURO: Oriented and alert x3. No focal weakness. Gait normal. SKIN: Skin otherwise with normal color and turgor JOINT EXAM:?? Cervical Spine: Full range of motion without pain; no tenderness. Thoracic Spine:? No scoliosis.? No tenderness on palpation. Lumbar Spine:? Alignment normal.?Full range of motion, pain with flexion and tenderness to palpation over the lumbar spine. Hands:? Normal pain-free range of motion without tenderness, swelling, increased warmth or erythema. 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 Wrists:Normal pain-free range of motion without tenderness, swelling, increased warmth or erythema. Elbows: Normal pain-free range of motion without tenderness, swelling, increased warmth or erythema. Shoulders:?? Full range of motion without pain. No tenderness, weakness, swelling, increased warmth or erythema. Hips:? Full range of motion without pain. Hip bursa:? No tenderness. Knees:??LEFT: Full range of motion with tenderness to palpation of the medial joint line. No swelling, increased warmth or erythema.? There is mild crepitation RIGHT: Full range of motion with tenderness to palpation of the medial joint line. No swelling, increased warmth or erythema.? There is mild crepitation Ankles:? Normal pain-free range of motion without tenderness, swelling, increased warmth or erythema. Feet:? Normal pain-free range of motion without tenderness, swelling, increased warmth or erythema. Cock-up deformity consistent with hammertoe 2nd and 3rd toe bilaterally. Assessment & Plan Assessment & Plan (1) Osteoarthritis (arthritis due to wear and tear of joints): Code(s): M19.90 - Unspecified osteoarthritis, unspecified site Qualifiers: Osteoarthritis location: multiple joints Osteoarthritis type: primary Qualified Code(s): M15.9 - Polyosteoarthritis, unspecified (2) Knee pain, right: Code(s): M25.561 - Pain in right knee Qualifiers: Chronicity: chronic Qualified Code(s): M25.561 - Pain in right knee; G89.29 - Other chronic pain (3) Knee pain, left: Code(s): M25.562 - Pain in left knee Qualifiers: Chronicity: chronic Qualified Code(s): M25.562 - Pain in left knee; G89.29 - Other chronic pain (4) Lumbar spondylosis: Code(s): M47.816 - Spondylosis without myelopathy or radiculopathy, lumbar region Plan: (5) Osteoporosis: Code(s): M81.0 - Age-related osteoporosis without current pathological fracture Qualifiers: Osteoporosis type: age-related Presence of current pathological fracture: without current pathological fracture Qualified Code(s): M81.0 - Age-related osteoporosis without current pathological fracture Plan #Osteoarthritis/Bilat Knee Pain: Discussed with patient the nature of OA and also that it can help improve joint function and reduce pain when the muscles supporting the joints are strengthened. --Ordered PT to eval and Treat for instability and strengthening. -- Patient will continue tramadol and gabapentin. She also uses a home remedy of rubbing alcohol and avocado oil she gets from her daughter which adds some relief per patient. --Ordered Xrays for Bilateral knees and Physical therapy. I will follow up with her x-ray results. --Patient requested new cane, order placed. #lumbar spondylosis causing chronic low back pain. Her symptoms are generally worse in the winter months and better in the summer. Previously she had pain that comes and goes, she reports more constant pain in the lower back after a fall in May 2022. --Explain that this is OA of the spine. --Recommend updating lumbar spine x-ray to assess for compression etc - patient agrees/reorder from last visit. #Osteoporiosis Screening:Patient's risk factors include PPI use, smoker. --Ordered DEXA to evaluate --Consider starting Calcium and Vit D at next visit. Orders: Orders XR knee LT 3V Today M25.562 - Pain in left knee Creatine Kinase Total Today M62.81 - Muscle weakness (generalized), Z51.81 - Encounter for therapeutic drug level monitoring XR knee RT 3V Today M25.561 - Pain in right knee PT Evaluation and Treatment Today M25.369 - Other instability, unspecified knee, M25.561 - Pain in right knee, M25.562 - Pain in left knee, M54.50 - Low back pain, unspecified XR lumbar spine 2-3V Today M25.369 - Other instability, unspecified knee, M54.50 - Low back pain, unspecified, R29.6 - Repeated falls Complete Blood Count Auto Diff Today M25.369 - Other instability, unspecified knee, M25.561 - Pain in right knee, M25.562 - Pain in left knee, M54.50 - Low back pain, unspecified Comprehensive Met. Panel Today Z51.81 - Encounter for therapeutic drug level monitoring Erythrocyte Sedimentation Rate Today M25.561 - Pain in right knee, M25.562 - Pain in left knee C Reactive Protein Today M25.369 - Other instability, unspecified knee, M25.561 - Pain in right knee, M25.562 - Pain in left knee, M54.50 - Low back pain, unspecified XR DEXA axial skeleton Today M81.0 - Age-related osteoporosis without current pathological fracture Medications: Refilled [Cane] As directed 1 ea 0RF M47.816 - Spondylosis without myelopathy or radiculopathy, lumbar region [Cane] As directed 1 ea 0RF M47.816 - Spondylosis without myelopathy or radiculopathy, lumbar region Coding Level of Care Code Est Pt Level 3 (91975) Diagnoses Primary osteoarthritis involving multiple joints M15.9 Osteoarthritis location: multiple joints Osteoarthritis type: primary Chronic pain of right knee M25.561; G89.29 Chronicity: chronic Chronic pain of left knee M25.562; G89.29 Chronicity: chronic Lumbar spondylosis M47.816 Age-related osteoporosis without current pathological fracture M81.0 Osteoporosis type: age-related Presence of current pathological fracture: without current pathological fracture
[2023-01-22 11:07] VITALS: BP 132/64; PULSE 103; TEMP 36.1; O2SAT 95; BMI 33.7
== END 2023-01-22 11:54 | disposition home or self-care (01) ==
PROVIDERS: PCP Internal Medicine; Visit Provider Nurse Practitioner Family
DX: M15.9 Polyosteoarthritis, unspecified (principal); M25.561 Pain in right knee; G89.29 Other chronic pain; M25.562 Pain in left knee; M47.816 Spondylosis without myelopathy or radiculopathy, lumbar region; M81.0 Age-related osteoporosis without current pathological fracture
CPT/HCPCS: 99213

== ENCOUNTER → 2023-01-22 10:55 | Outpatient (BNVA) | payer OTHER, SELFPAY | PROVIDERS: PCP Internal Medicine; Visit Provider Nurse Practitioner Family | DX: M25.561 Pain in right knee (principal); M25.562 Pain in left knee; M23.52 Chronic instability of knee, left knee; M23.51 Chronic instability of knee, right knee; M54.50 Low back pain, unspecified; M62.81 Muscle weakness (generalized); R29.6 Repeated falls; N18.30 Chronic kidney disease, stage 3 unspecified; Z51.81 Encounter for therapeutic drug level monitoring | CPT/HCPCS: 99212 ==

== ENCOUNTER 2023-02-08 10:04 | Outpatient (REF) | payer OTHER, SELFPAY ==
--- NOTE | ~2023-02-08 | XR_ITS ---
EXAMINATION: XR KNEE, RIGHT CLINICAL INFORMATION: Pain. COMPARISON: None available. TECHNIQUE: AP, lateral, and sunrise views of the right knee are submitted. FINDINGS: Bony alignment and mineralization are normal. The lateral, medial and patellofemoral joint space compartments are well-maintained. There is a minimal peripheral osteophyte of the lateral articular surface of the patella. No fracture, dislocation or significant joint effusion is seen. There is no foreign body. XR/XR knee LT 3V IMPRESSION: 1. No fracture, dislocation joint effusion is seen. 2. There is minimal osteoarthritic change of the right patellofemoral compartment. EXAMINATION: XR KNEE, LEFT CLINICAL INFORMATION: Pain. COMPARISON: None available. TECHNIQUE: AP, lateral, and sunrise views of the left knee are submitted. FINDINGS: Bony alignment and mineralization are normal. The lateral, medial and patellofemoral joint space compartments are well-maintained. There is a minimal peripheral osteophyte of the lateral articular surface of the patella. No fracture, dislocation or significant joint effusion is seen. There is no foreign body. IMPRESSION: 1. No fracture, dislocation or joint effusion is seen. 2. There is minimal osteoarthritic change of the left patellofemoral compartment.
--- NOTE | ~2023-02-08 | XR_ITS ---
EXAMINATION: XR KNEE, RIGHT CLINICAL INFORMATION: Pain. COMPARISON: None available. TECHNIQUE: AP, lateral, and sunrise views of the right knee are submitted. FINDINGS: Bony alignment and mineralization are normal. The lateral, medial and patellofemoral joint space compartments are well-maintained. There is a minimal peripheral osteophyte of the lateral articular surface of the patella. No fracture, dislocation or significant joint effusion is seen. There is no foreign body. XR/XR knee RT 3V IMPRESSION: 1. No fracture, dislocation joint effusion is seen. 2. There is minimal osteoarthritic change of the right patellofemoral compartment. EXAMINATION: XR KNEE, LEFT CLINICAL INFORMATION: Pain. COMPARISON: None available. TECHNIQUE: AP, lateral, and sunrise views of the left knee are submitted. FINDINGS: Bony alignment and mineralization are normal. The lateral, medial and patellofemoral joint space compartments are well-maintained. There is a minimal peripheral osteophyte of the lateral articular surface of the patella. No fracture, dislocation or significant joint effusion is seen. There is no foreign body. IMPRESSION: 1. No fracture, dislocation or joint effusion is seen. 2. There is minimal osteoarthritic change of the left patellofemoral compartment.
--- NOTE | ~2023-02-08 | XR_ITS ---
EXAMINATION: XR LUMBOSACRAL SPINE CLINICAL INFORMATION: Lower back pain. COMPARISON: Radiographs dated 07/24/2021. TECHNIQUE: AP and lateral views of the lumbar spine and lateral view of the lumbosacral junction. FINDINGS: There is bony demineralization. There is a moderately severe thoracolumbar rotatory dextroscoliosis. At L2-L3, there is marked disc space narrowing, with vigorous endplate sclerosis and a 5 mm retrolisthesis. At L4-L5, there is a 7 mm retrolisthesis. At L5-S1, there is moderate disc space narrowing. No acute fracture or spondylolisthesis is seen. There is multi-level lumbar spondylosis and facet arthropathy. The posterior elements are intact. There are aortoiliac atherosclerotic calcifications. XR/XR lumbar spine 2-3V IMPRESSION: 1. There is multi-level lumbar degenerative disc disease, spondylosis and facet arthropathy. Degenerative disc disease is most pronounced at L2-L3, where it is severe. 2. There is a moderately severe thoracolumbar rotatory dextroscoliosis.
[2023-02-08 10:40] LABS: MANUAL DIFF FLAG NO
[2023-02-08 11:02] LABS: Basophils Absolute Auto 0.1 X10*3/uL (0.0-0.2); Basophils Percent Auto 0.9 % (0-2); Eosinophils Absolute Auto 0.3 X10*3/uL (0.0-0.4); Eosinophils Percent Auto 2.6 % (0-4); Hematocrit 42.7 % (37.0-47.0); Hemoglobin 13.8 g/dl (12.0-16.0); Imm Gran Abs Auto 0.03 X10*3/uL (0.00-0.03); Imm Gran Pct Auto 0.3 % (0.0-0.4); Lymphocytes Absolute Auto 2.7 X10*3/uL (1.2-4.9); Lymphocytes Percent Auto 27.2 % (20-40); Mean Corpuscular HGB Conc 32.3 g/dl (31.0-35.0); Mean Corpuscular Hemoglobin 29.3 pg (27.0-33.0); Mean Corpuscular Volume 90.7 fL (80.0-98.0); Mean Platelet Volume 10.4 fL (9.4-12.3); Monocytes Absolute Auto 0.5 X10*3/uL (0.1-1.2); Monocytes Percent Auto 5.2 % (2-11); Neutrophils Absolute Auto 6.4 x10*3/uL (2.0-8.3); Neutrophils Percent Auto 63.8 % (45-73); Platelet Count 335 X10*3/uL (160-400); Red Blood Count 4.71 X10*6/uL (4.20-5.50); Red Cell Distribution Width 13.4 % (11.0-16.0)
[2023-02-08 11:58] LABS: Alanine Aminotransferase 10 U/L (0-31); Albumin Level 4.1 g/dL (3.5-5.0); Alkaline Phosphatase 116 U/L (39-117); Anion Gap 15 (12-20); Aspartate Amino Transferase 12 U/L (5-31); Bilirubin Total 0.4 mg/dL (0.0-1.0); Blood Urea Nitrogen 14 mg/dL (9-16); C Reactive Protein 1.55 mg/dL (< or = 0.50); Calcium 9.5 mg/dL (8.4-10.2); Carbon Dioxide 25 mmol/L (22-29); Chloride 105 mmol/L (96-108); Estimated Glomerular Filt Rate 55; Glucose Random 154 mg/dL (60-115); Potassium 4.6 mmol/L (3.3-5.1); Sodium 140 mmol/L (135-145); Total Protein 7.6 g/dL (6.5-8.0)
[2023-02-08 11:59] LABS: Erythrocyte Sedimentation Rate 55 MM/HR (0-20)
== END 2023-02-08 10:05 | disposition home or self-care (01) ==
LOC: HO.XRAY 10:04
PROVIDERS: Absent Provider Nurse Practitioner Family; PCP Internal Medicine; Visit Provider Nurse Practitioner Family
DX: M25.562 Pain in left knee (principal); M25.561 Pain in right knee; M54.50 Low back pain, unspecified; M25.369 Other instability, unspecified knee; R29.6 Repeated falls; M62.81 Muscle weakness (generalized); Z51.81 Encounter for therapeutic drug level monitoring; Z79.899 Other long term (current) drug therapy
CPT/HCPCS: 36415; 72100; 73562; 80053; 82550; 85025; 85652; 86140

== ENCOUNTER 2023-02-20 10:02 | Outpatient (REF) | payer OTHER, SELFPAY ==
--- NOTE | ~2023-02-20 | XR_ITS ---
EXAMINATION: XR CHEST CLINICAL INFORMATION: Asthmatic with Persistent cough over 7 days, purulent sputum, elevated acute phase reactant. Denies fever, night sweats, bloody sputum and increased SOB. Endorses increased joint pain. COMPARISON: 12/15/2015 TECHNIQUE: 2 views of the chest were obtained along with bilateral decubitus views. FINDINGS: No significant abnormality is noted involving the heart, lungs, mediastinum, bony thorax or soft tissues. XR/XR chest 4 views IMPRESSION: Unremarkable examination.
== END 2023-02-20 10:03 | disposition home or self-care (01) ==
LOC: HO.XRAY 10:02
PROVIDERS: PCP Internal Medicine; Visit Provider Nurse Practitioner Family
DX: R05.8 Other specified cough (principal); R70.0 Elevated erythrocyte sedimentation rate; R79.82 Elevated C-reactive protein (CRP)
CPT/HCPCS: 71048

== ENCOUNTER 2023-02-26 08:50 | Outpatient (REF) | payer OTHER, SELFPAY ==
--- NOTE | ~2023-02-26 | MM_ITS ---
EXAMINATION: BONE DENSITOMETRY CLINICAL INDICATION: Age-related osteoporosis without current pathological fracture. COMPARISON: Baseline BD dated 08/31/2012. TECHNIQUE: Using a [employer] DXA System (software version: 13.1) manufactured by [employer], dual-energy x-ray absorptiometry was performed of the lumbar spine and left hip. The images are of good technical quality. Summary results are attached. FINDINGS: LEFT FEMUR, NECK: Current: BMD 0.723 g/cm2, Z-score -1.2, T-score -2.3, osteopenia. Baseline: BMD 0.768 g/cm2. LEFT FEMUR, TOTAL: Current: BMD 0.882 g/cm2, Z-score -0.3, T-score -1.0, normal, 3.3% decrease from baseline (<5% change is not significant). Baseline: BMD 0.912 g/cm2. AP SPINE L1-L4 (excluding L2 and L3): The data of L1-L4 has been changed to exclude the L2 and L3 vertebral bodies, because degenerative sclerosis at these levels may cause overestimation of lumbar spine density. Current: BMD 1.319 g/cm2, Z-score 2.1, T-score 1.3, normal, 18.2% increase from baseline (<5% change is not significant). Baseline: BMD 1.116 g/cm2. IDENTIFIED RISK FACTORS: Menopause, history of fracture (adult), recurrent falls, current smoker. HISTORY OF FRACTURE: Other. Forearm. MEDICATIONS: None listed. MM/XR DEXA axial skeleton IMPRESSION: 1. DIAGNOSIS: Osteopenia based on the lowest T-score value of -2.3 in the femoral neck applying World Health Organization criteria. 2. 10-YEAR FRACTURE RISK PREDICTION, FRAX: Major osteoporotic fracture (clinical spine, forearm, hip or shoulder) 12.1%. Hip fracture 3.7%. 3. Treatment Recommendations: NOF guidelines recommend consideration for treatment in postmenopausal women and men age 50 and older presenting with the following: -A hip or vertebral (clinical or morphometric) fracture. -T-score less than or equal to -2.5 at the femoral neck or spine after appropriate evaluation to exclude secondary causes. -Low bone mass at the hip or spine and a 10-year fracture probability by FRAX of greater than or equal to 3% for hip fracture or greater than or equal to 20% for major osteoporotic fracture based on the [place] adapted WHO algorithm. 4. Other Recommendations: All treatment decisions require clinical judgment and consideration of individual patient factors, including patient preferences, comorbidities, previous drug use, risk factors not captured in the FRAX model (e.g. frailty, falls, vitamin D deficiency, increased bone turnover, interval significant decline in bone density) and possible under or overestimation of fracture risk by FRAX. Additional medical evaluation for secondary cause of low bone mineral density may be appropriate. FUTURE SCAN RECOMMENDATION: People with diagnosed cases of osteoporosis or at high risk for fracture should have regular bone mineral density tests. For patients eligible for Medicare, routine testing is allowed once every 2 years. The testing frequency can be increased to one year for patients who have rapidly progressing disease, those who are receiving or discontinuing medical therapy to restore bone mass, or have additional risk factors.
== END 2023-02-26 08:51 | disposition home or self-care (01) ==
LOC: HO.MAMMO 08:50
PROVIDERS: PCP Internal Medicine; Visit Provider Nurse Practitioner Family
DX: Z13.820 Encounter for screening for osteoporosis (principal); M81.0 Age-related osteoporosis without current pathological fracture; Z78.0 Asymptomatic menopausal state
CPT/HCPCS: 77080

== ENCOUNTER 2023-03-20 13:13 | Outpatient (AMB) | payer OTHER, SELFPAY ==
--- NOTE | 2023-03-20 13:40 | A.OFFVIS_ITS ---
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: 6m/OAB/cystitis Intake Note: Patient presents today for a follow-up on OAB & Cystitis. 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 Required: No Accompanied by: Self / Same As Patient Allergies insulin detemir Allergy (Intermediate, Verified 03/20/23 13:43) Rash penicillin V Allergy (Intermediate, Verified 03/20/23 13:43) Rash acetaminophen [From Tylenol] Allergy (Mild, Verified 03/20/23 13:43) ITCH,RASH iodine [Iodine] Allergy (Mild, Verified 03/20/23 13:43) HIVES penicillin G [Penicillin G] Allergy (Mild, Verified 03/20/23 13:43) RASH latex [LATEX] Allergy (Unknown, Verified 03/20/23 13:43) RASH trimerosal Allergy (Intermediate, Uncoded 03/20/23 13:43) rash Latex Gloves Allergy (Mild, Uncoded 03/20/23 13:43) Rash METAL Allergy (Mild, Uncoded 03/20/23 13:43) HIVES HPI HPI Comments History of Present Illness0 Details Torrie is a 68-year-old female who presents today to the office for a follow-up. 03/20/2023-- She is followed today for OAB, hematuria and cystitis. She was last seen by me on 09/18/2022. currently denies dysuria using oxybutynin for OAB symptoms, has helped. UA- Nitrite positive Review of chart: s/p bladder bx - 03/05/22- path: acute and chonic inflammation h/o episodes of hematuria. Urine cytology 06/13/22- Negative for malignant cells Completed antibiotic suppressive therapy macrobid 100 mg daily for 6 wks, symptoms improved CoMorbidity - Diabetes 03/20/2023: Plan: Advised the patient to continue taking oxybutynin 10 mg daily as prescribed. Urine was sent for culture. Follow-up in 6 months. [facility] Medical History (Updated 01/22/23 @ 14:46 by Kavya Reed [facility]) Knee instability Back pain at L4-L5 level Knee pain, right Knee pain, left UTI (urinary tract infection) Proteinuria Hyperlipidemia Lumbar spondylosis Fibromyalgia Syncope COPD (chronic obstructive pulmonary disease) Depression Asthma Type 2 diabetes mellitus with hyperglycemia, with long-term current use of insulin Type 2 diabetes mellitus with chronic kidney disease Chronic kidney disease, stage 3 unspecified Type 2 diabetes mellitus with diabetic polyneuropathy Essential hypertension Surgical History Hx of mammogram Hx of colonoscopy Hx of oral surgery Hx of tubal ligation Family History Father No problems noted. Mother Heart disease CVD (cardiovascular disease) Diabetes Social History Household Members: Children Alcohol intake: never Patient Tobacco Use Status: Current everyday Tobacco user Tobacco use type: Cigarette Cigarettes Per Day: 4 Review of Systems Const All systems reviewed & are unremarkable except as noted in HPI and below Reports no additional complaints Eyes Reports no additional complaints ENT Reports no additional complaints Card Denies dyspnea Resp Denies cough and Denies dyspnea GI Reports no additional complaints Reports no additional complaints Musc Reports no additional complaints Skin/Breast Denies rash and Denies unusual bruising Neuro Reports no additional complaints Psych Reports no additional complaints Endo Reports no additional complaints Joe/Lymph Reports no additional complaints Aller/Immun Reports no additional complaints Results AMB Urinalysis, Automated UA Leukoctes 0 Gisselle/uL Last Edit by BALJEET Rincon on 03/20/23 13:49 UA Nitrite Positive Last Edit by BALJEET Rincon on 03/20/23 13:49 UA Urobilinogen 0.2 mg/dL Last Edit by BALJEET Rincon on 03/20/23 13:4 9 UA Protein 30 mg/dL Last Edit by BALJEET Rincon on 03/20/23 13:49 1+ [place] 03/20/23 13:49 UA pH 6.0 Last Edit by BALJEET Rincon on 03/20/23 13:49 UA Blood 0 Blayne/uL Last Edit by Tacho Sonido, BALJEET on 03/20/23 13:49 UA Specific [place] 1.015 Last Edit by Bertrandmaddison Sonido, BALJEET on 03/20/23 13: 49 UA Ketone Negative Last Edit by Bertrandthujose angel Head DRISSA on 03/20/23 13:49 UA Bilirubin 0 mg/dL Last Edit by Bertrandmaddison Sonido, DRISSA on 03/20/23 13:49 UA Glucose 1000 mg/dL Last Edit by Tacho Head Joey on 03/20/23 13:49 3+ [place] Head 03/20/23 13:49 Results Reviewed Results Reviewed: Laboratory Last Values Urine pH (Auto) 6.0 03/20/23 13:44 Specific [place] (Auto) 1.015 03/20/23 13:44 Urine Protein (Auto) 30 mg/dL 03/20/23 13:44 Glucose (UA)(Auto) 1000 mg/dL 03/20/23 13:44 Urine Ketones (Auto) Negative 03/20/23 13:44 Urine Blood (Auto) 0 Blayne/uL 03/20/23 13:44 Urine Nitrite (Auto) Positive 03/20/23 13:44 Urine Bilirubin (Auto) 0 mg/dL 03/20/23 13:44 Urine Urobilinogen (Auto) 0.2 mg/dL 03/20/23 13:44 Leukocyte Esterase (Auto) 0 Gisselle/uL 03/20/23 13:44 Assessment & Plan Assessment & Plan (1) Nicotine dependence: Code(s): F17.200 - Nicotine dependence, unspecified, uncomplicated (2) Microscopic hematuria: Code(s): R31.29 - Other microscopic hematuria (3) Cystitis: Code(s): N30.90 - Cystitis, unspecified without hematuria (4) OAB (overactive bladder): Code(s): N32.81 - Overactive bladder (5) Urge incontinence of urine: Code(s): N39.41 - Urge incontinence Plan Advised the patient to continue taking oxybutynin 10 mg daily as prescribed. Urine was sent for culture. Follow-up in 6 months. Orders: Orders AMB Urinalysis Automated 03/20/23 Z13.9 - Encounter for screening, unspecified Urine Culture 03/20/23 N39.0 - Urinary tract infection, site not specified AMB Post Void Residual by ultrasound 03/20/23 N39.8 - Other specified disorders of urinary system Medications: Refilled oxybutynin chloride ER 10 mg PO DAILY 90 tabs 3RF Patient Instructions: The patient had an opportunity to ask questions regarding treatment plan. All questions were answered. Imaging, Laboratory studies and physical exam results were discussed and reviewed in detail. No major barriers to understanding were identified. The patient expressed understanding and agreement with the above treatment plan. The patient is aware they should contact our office by phone for worsening of their current condition or the appearance of new symptoms. Compliance is encouraged with any medications and followup testing that is ordered. It is a privilege to be allowed the opportunity to participate in the urologic care of your patient. If you have any questions or concerns regarding treatment for the above conditions please do not hesitate to contact me. The office telephone contact is [phone]. This note is constructed in part using voice recognition software. While every effort has been made to ensure accuracy hazmat truck driver errors may have been included. Yours sincerely, Landy Roche MD Coding Level of Care Code Est Pt Level 4 (56581) Diagnoses Nicotine dependence F17.200 Microscopic hematuria R31.29 Cystitis N30.90 OAB (overactive bladder) N32.81 Urge incontinence of urine N39.41
== END 2023-03-20 14:20 | disposition home or self-care (01) ==
PROVIDERS: Visit Provider Urology
DX: F17.200 Nicotine dependence, unspecified, uncomplicated (principal); R31.29 Other microscopic hematuria; N30.90 Cystitis, unspecified without hematuria; N32.81 Overactive bladder; N39.41 Urge incontinence
CPT/HCPCS: 99214

== ENCOUNTER 2023-03-20 13:13 | Outpatient (REF) | payer OTHER, SELFPAY | END 2023-03-20 13:14 | disposition home or self-care (01) | LOC: HO.LAB 13:13 | PROVIDERS: Visit Provider Urology | DX: R31.29 Other microscopic hematuria (principal); N32.81 Overactive bladder; N39.41 Urge incontinence; N30.90 Cystitis, unspecified without hematuria; F17.200 Nicotine dependence, unspecified, uncomplicated; Z71.6 Tobacco abuse counseling | CPT/HCPCS: 81003; 87086; 87088; 87186; 99212 ==

== ENCOUNTER 2023-04-02 11:00 | Outpatient (RCR) | payer OTHER, SELFPAY | END 2023-06-04 10:56 | disposition home or self-care (01) | LOC: HO.PT 11:00 | PROVIDERS: PCP Internal Medicine; Visit Provider Nurse Practitioner Family | DX: M25.561 Pain in right knee (principal); M25.562 Pain in left knee | CPT/HCPCS: 97110; 97161 ==

== ENCOUNTER 2023-05-01 10:47 | Outpatient (AMB) | payer OTHER, SELFPAY ==
--- NOTE | 2023-05-01 10:50 | A.OFFVIS_ITS ---
Intake Vital Signs 05/01/23 10:58 Height 5 ft 6 in Weight 458 lb 8.984 oz BMI 74.0 BP 148/66 H Blood Pressure Location Rt brachial Position Sitting Pulse 111 H Pulse Source Pulse Oximeter Temp 97 F Temp Source Skin Pulse Oximetry (%) 98 Oxygen Delivery Method Room Air Intake Visit Reasons: abnormal labs Intake Note: Patient last seen 01/22/23, presents today for follow up and test results. Patient is visibly walking in discomfort and unbalanced. Food Beverage Manager Required: No Accompanied by: Self / Same As Patient Allergies insulin detemir Allergy (Intermediate, Verified 05/01/23 10:51) Rash penicillin V Allergy (Intermediate, Verified 05/01/23 10:51) Rash acetaminophen [From Tylenol] Allergy (Mild, Verified 05/01/23 10:51) ITCH,RASH iodine [Iodine] Allergy (Mild, Verified 05/01/23 10:51) HIVES penicillin G [Penicillin G] Allergy (Mild, Verified 05/01/23 10:51) RASH latex [LATEX] Allergy (Unknown, Verified 05/01/23 10:51) RASH trimerosal Allergy (Intermediate, Uncoded 05/01/23 10:51) rash Latex Gloves Allergy (Mild, Uncoded 05/01/23 10:51) Rash METAL Allergy (Mild, Uncoded 05/01/23 10:51) HIVES HPI HPI Comments History of Present Illness Details Torrie is a 67yo F who presents for follow-up of generalized OA.. Patient presents for follow-up of her chronic back and knee pain. The knee pain is her most prominent pain symptom and it worsens with use. She states that she has frequent falls - when she tries to put weight on her legs, the knees give out. She manages her pain with Tramadol and gabapentin - pain contract in effect. She denies numbness in her lower extremities. Continues with Carpal tunnel symptoms both hands for which she wears cock-up splints at night. EMG 09/2021. She had started physical therapy which was prescribed at last visit but she found it very painful to continue and states that the physical therapist informed her that they could not help her. She she uses the bands they gave her to do some of the exercises at home. Patient is also complaining of upper arms and shoulder pain. She states it is challenging to calm or wash her hair. She can not hold up her arm for long periods. She continues to use the cane for walking stability. [facility] Medical History (Updated 05/01/23 @ 14:45 by FRANCISCA Mendosa) Insulin dependent type 2 diabetes mellitus Elevated C-reactive protein Elevated sed rate Myalgia, upper arm Polymyalgia rheumatica syndrome Knee instability Back pain at L4-L5 level Knee pain, right Knee pain, left UTI (urinary tract infection) Proteinuria Hyperlipidemia Lumbar spondylosis Fibromyalgia Syncope COPD (chronic obstructive pulmonary disease) Depression Asthma Type 2 diabetes mellitus with hyperglycemia, with long-term current use of insulin Type 2 diabetes mellitus with chronic kidney disease Chronic kidney disease, stage 3 unspecified Type 2 diabetes mellitus with diabetic polyneuropathy Essential hypertension Surgical History Hx of mammogram Hx of colonoscopy Hx of oral surgery Hx of tubal ligation Family History Father No problems noted. Mother Heart disease CVD (cardiovascular disease) Diabetes Social History Household Members: Children Alcohol intake: never Patient Tobacco Use Status: Current everyday Tobacco user Tobacco use type: Cigarette Cigarettes Per Day: 4 Review of Systems Const All systems reviewed & are unremarkable except as noted in HPI and below Physical Exam Vital Signs: Last Vital Signs Temp 97 F 05/01/23 10:58 Pulse 111 H 05/01/23 10:58 BP 148/66 H 05/01/23 10:58 Pulse Ox 98 05/01/23 10:58 Oxygen Delivery Method Room Air 05/01/23 10:58 BMI result Body Mass Index 74.0 APPEARANCE: Patient in no acute distress, groomed, nourished EYES: no redness, eyelids normal EARS: External ear normal THROAT: Oral mucosa moist, no ulcerations NECK: No thyromegaly or masses, no adenopathy, trachea midline. HEART: Regular rhythm, S1-S2 heard, no murmurs, rubs or gallops. LUNG: Wheeze noted throughout bilaterally, respiratory rate regular and non-labored. EXTREMITIES: No edema, no calf tenderness, normal peripheral pulses. NEURO: Oriented and alert x3. No focal weakness. Walks with a cane SKIN: Skin otherwise with normal color and turgor, scattered scabbed lesions to forearms. JOINT EXAM:?? Hands:? Normal pain-free range of motion without tenderness, swelling, increased warmth or erythema. Able to make a full fist and has a good intake assessor strength. Wrists:Normal pain-free range of motion without tenderness, swelling, increased warmth or erythema. Elbows: Normal pain-free range of motion without tenderness, swelling, increased warmth or erythema. Shoulders:?? Decreased range of motion with pain. Some tenderness and weakness, but no swelling, increased warmth or erythema. Hips:? decreased Full range of motion without pain. Hip bursa:? mild tenderness to both. Knees:??LEFT: Full range of motion with tenderness to palpation of the medial joint line. No swelling, increased warmth or erythema.? There is mild crepitation RIGHT: Full range of motion with tenderness to palpation of the medial joint line. No swelling, increased warmth or erythema.? There is mild crepitation Ankles:? Normal pain-free range of motion without tenderness, swelling, increased warmth or erythema. Feet:? Normal pain-free range of motion without tenderness, swelling, increased warmth or erythema. Cock-up deformity consistent with hammertoe 2nd and 3rd toe bilaterally. Results Reviewed Results Reviewed: Laboratory Tests 02/08/23 10:39 ESR 55 H C-Reactive Protein 1.55 H January 2023 CLINICAL INFORMATION: Lower back pain. COMPARISON: Radiographs dated 07/24/2021. TECHNIQUE: AP and lateral views of the lumbar spine and lateral view of the lumbosacral junction. FINDINGS: There is bony demineralization. There is a moderately severe thoracolumbar rotatory dextroscoliosis. At L2-L3, there is marked disc space narrowing, with vigorous endplate sclerosis and a 5 mm retrolisthesis. At L4-L5, there is a 7 mm retrolisthesis. At L5-S1, there is moderate disc space narrowing. No acute fracture or spondylolisthesis is seen. There is multi-level lumbar spondylosis and facet arthropathy. The posterior elements are intact. There are aortoiliac atherosclerotic calcifications. XR/XR lumbar spine 2-3V IMPRESSION: 1. There is multi-level lumbar degenerative disc disease, spondylosis and facet arthropathy. Degenerative disc disease is most pronounced at L2-L3, where it is severe. 2. There is a moderately severe thoracolumbar rotatory dextroscoliosis. January 2023 XR/XR knee RT 3V IMPRESSION: 1. No fracture, dislocation joint effusion is seen. 2. There is minimal osteoarthritic change of the right patellofemoral compartment. IMPRESSION: 1. No fracture, dislocation or joint effusion is seen. 2. There is minimal osteoarthritic change of the left patellofemoral compartment. Assessment & Plan Assessment & Plan (1) Polymyalgia rheumatica syndrome: Code(s): M35.3 - Polymyalgia rheumatica (2) Knee pain, left: Code(s): M25.562 - Pain in left knee Qualifiers: Chronicity: chronic Qualified Code(s): M25.562 - Pain in left knee; G89.29 - Other chronic pain (3) Knee pain, right: Code(s): M25.561 - Pain in right knee Qualifiers: Chronicity: chronic Qualified Code(s): M25.561 - Pain in right knee; G89.29 - Other chronic pain (4) Myalgia, upper arm: Code(s): M79.18 - Myalgia, other site (5) Elevated sed rate: Code(s): R70.0 - Elevated erythrocyte sedimentation rate (6) Elevated C-reactive protein: Code(s): R79.82 - Elevated C-reactive protein (CRP) (7) Insulin dependent type 2 diabetes mellitus: Code(s): E11.9 - Type 2 diabetes mellitus without complications; Z79.4 - prison (current) use of insulin Plan #Osteoarthritis/Bilat Knee Pain: Ms. Brownlee reports she could not tolerated PT and will not continue. The cane has helped her with walking. I encouraged patient to do at home those lower extremity exercises that she finds tolerable. She will continue with Tramadol 50 mg b.i.d. and gabapentin. She also uses a home remedy of rubbing alcohol and avocado oil she gets from her daughter which adds some relief per patient. Patient is not satisfied with my reducing her tramadol to 50 mg b.i.d. from b.i.d. 100 mg. I discussed at length and trying to ease her mind that it is important for me to address her elevated inf lammatory markers and to evaluate if there is an underlying inflammatory process to some of her pain levels. Having such high doses of tramadol is not beneficial to this treatment approach. #lumbar spondylosis. She continues with chronic low back pain. Her symptoms are generally worse in the winter months and better in the summer. Previously she had pain that comes and goes, she reports more constant pain in the lower back after a fall in May 2022. --Recommend updating lumbar spine x-ray to assess for compression etc - patient agrees/reorder from last visit. #PMR/Myalgia and elevated ESR/CRP: I suspect the patient may be suffering from polymyalgia rheumatic. Given her symptoms of upper extremities tenderness, decreased range of motion, and elevated CRP and she also describes weakness to her thighs. In reviewing her records I found rheumatology workup dating back to 2013. At that time she had markedly elevated CRP of 11.29 and ESR of 25. I have no additional records of these since then. It is not clear what was her diagnosis at that time. During examination today, patient remarked that she was told many years ago that she has myositis. I am not sure that was her findings however, However, I have a suspicion that her diagnosis may have been muscle related. I will start her on a course of prednisone and reassess for improvement in inflammatory markers and her upper extremity pain. I discussed with patient the short-term side effects of prednisone to include but not limited to insomnia, weight gain, elevated blood sugar levels. I told patient that it is the goal to reduce her inflammatory levels and the effects on her joints and muscles with a further goal goal to reduce pain levels and improve her functionality. I hope I was able to convince her and she will adhere to the current course of prednisone treatment. I will obtain labs to reassess ESR?CRP in 4 weeks and assess CK/Aldolase levels. #IDDM: Patient was cautioned to monitor her blood sugar for constant valley over 250 and to alert us if this happens on prednisone. #Osteoporiosis Screening:Patient's risk factors include PPI use, smoker. --Ordered DEXA to evaluate --Consider starting Calcium and Vit D at next visit after stabilized with the above. I have spent 45 minutes reviewing chart, evaluating patient, and documenting. Orders: Orders Erythrocyte Sedimentation Rate 1 Month M25.561 - Pain in right knee, M25.562 - Pain in left knee, M35.3 - Polymyalgia rheumatica Uric Acid 1 Month M25.561 - Pain in right knee, M25.562 - Pain in left knee, M35.3 - Polymyalgia rheumatica Complete Blood Count Auto Diff 1 Month M25.561 - Pain in right knee, M25.562 - Pain in left knee, M35.3 - Polymyalgia rheumatica Aldolase 1 Month M79.18 - Myalgia, other site C Reactive Protein 1 Month M25.561 - Pain in right knee, M25.562 - Pain in left knee, M35.3 - Polymyalgia rheumatica Cyclic Citrullinated Peptide 1 Month M25.561 - Pain in right knee, M25.562 - Pain in left knee, M35.3 - Polymyalgia rheumatica Creatine Kinase Total 1 Month M79.18 - Myalgia, other site Medications: New prednisone 3 tablets per day x 7 days, 2 tablets until next visit. 90 tabs 0RF M35.3 - Polymyalgia rheumatica Coding Level of Care Code Tele Est Pt Level 4 (13868) Diagnoses Polymyalgia rheumatica syndrome M35.3 Chronic pain of left knee M25.562; G89.29 Chronicity: chronic Chronic pain of right knee M25.561; G89.29 Chronicity: chronic Myalgia, upper arm M79.18 Elevated sed rate R70.0 Elevated C-reactive protein R79.82 Insulin dependent type 2 diabetes mellitus E11.9; Z79.4
[2023-05-01 10:58] VITALS: BP 148/66; PULSE 111; TEMP 36.1; O2SAT 98; BMI 74.0
== END 2023-05-01 11:35 | disposition home or self-care (01) ==
PROVIDERS: PCP Internal Medicine; Visit Provider Nurse Practitioner Family
DX: M35.3 Polymyalgia rheumatica (principal); M17.0 Bilateral primary osteoarthritis of knee; G89.29 Other chronic pain; M79.18 Myalgia, other site; R70.0 Elevated erythrocyte sedimentation rate; R79.82 Elevated C-reactive protein (CRP); E11.9 Type 2 diabetes mellitus without complications; Z79.4 Long term (current) use of insulin
CPT/HCPCS: 99215

== ENCOUNTER → 2023-05-01 10:47 | Outpatient (BNVA) | payer OTHER, SELFPAY | PROVIDERS: PCP Internal Medicine; Visit Provider Nurse Practitioner Family | DX: M35.3 Polymyalgia rheumatica (principal); M25.562 Pain in left knee; M25.561 Pain in right knee; G89.29 Other chronic pain | CPT/HCPCS: 99212 ==

== ENCOUNTER 2023-06-05 13:22 | Outpatient (REF) | payer OTHER, SELFPAY ==
[2023-06-05 13:50] LABS: MANUAL DIFF FLAG NO
[2023-06-05 14:04] LABS: Basophils Absolute Auto 0.1 X10*3/uL (0.0-0.2); Basophils Percent Auto 0.5 % (0-2); Eosinophils Percent Auto 0.2 % (0-4); Hemoglobin 14.3 g/dl (12.0-16.0); Imm Gran Abs Auto 0.09 X10*3/uL (0.00-0.03); Imm Gran Pct Auto 0.8 % (0.0-0.4); Lymphocytes Absolute Auto 1.3 X10*3/uL (1.2-4.9); Lymphocytes Percent Auto 11.6 % (20-40); Mean Corpuscular HGB Conc 33.3 g/dl (31.0-35.0); Mean Corpuscular Hemoglobin 29.4 pg (27.0-33.0); Mean Corpuscular Volume 88.3 fL (80.0-98.0); Mean Platelet Volume 11.1 fL (9.4-12.3); Monocytes Absolute Auto 0.3 X10*3/uL (0.1-1.2); Monocytes Percent Auto 2.8 % (2-11); Neutrophils Absolute Auto 9.2 x10*3/uL (2.0-8.3); Neutrophils Percent Auto 84.1 % (45-73); Platelet Count 302 X10*3/uL (160-400); Red Blood Count 4.87 X10*6/uL (4.20-5.50); Red Cell Distribution Width 13.8 % (11.0-16.0); White Blood Count 10.9 X10*3/uL (4.8-10.8)
[2023-06-05 14:37] LABS: C Reactive Protein 0.39 mg/dL (< or = 0.50); Uric Acid 4.4 mg/dL (2.4-5.7)
[2023-06-05 14:47] LABS: Erythrocyte Sedimentation Rate 28 MM/HR (0-20)
[2023-06-09 14:28] LABS: Cyclic Citrullinated Peptide <16 UNITS
[2023-06-10 05:04] LABS: Aldolase 3.4 U/L (<=8.1)
== END 2023-06-05 13:23 | disposition home or self-care (01) ==
LOC: HO.LAB 13:22
PROVIDERS: Visit Provider Nurse Practitioner Family
DX: M35.3 Polymyalgia rheumatica (principal); M25.561 Pain in right knee; M25.562 Pain in left knee; M79.18 Myalgia, other site
CPT/HCPCS: 36415; 82085; 82550; 84550; 85025; 85652; 86140; 86200

== ENCOUNTER 2023-06-06 10:04 | Outpatient (AMB) | payer OTHER, SELFPAY ==
--- NOTE | 2023-06-06 10:06 | A.OFFVIS_ITS ---
Intake Vital Signs 06/06/23 10:12 Height 5 ft 6 in Weight 195 lb 8.8 oz BMI 31.6 BP 100/45 L Blood Pressure Location Rt brachial Position Sitting Pulse 102 H Pulse Source Pulse Oximeter Temp 97 F Temp Source Skin Pulse Oximetry (%) 95 Oxygen Delivery Method Room Air Intake Visit Reasons: PMR/Myalgia Intake Note: Patient last seen 05/01/23 by Brianna, presents today for PMR follow up and test results. [employer] [address] Required: No Accompanied by: Self / Same As Patient Allergies insulin detemir Allergy (Intermediate, Verified 06/06/23 10:17) Rash penicillin V Allergy (Intermediate, Verified 06/06/23 10:17) Rash acetaminophen [From Tylenol] Allergy (Mild, Verified 06/06/23 10:17) ITCH,RASH iodine [Iodine] Allergy (Mild, Verified 06/06/23 10:17) HIVES penicillin G [Penicillin G] Allergy (Mild, Verified 06/06/23 10:17) RASH latex [LATEX] Allergy (Unknown, Verified 06/06/23 10:17) RASH trimerosal Allergy (Intermediate, Uncoded 06/06/23 10:17) rash Latex Gloves Allergy (Mild, Uncoded 06/06/23 10:17) Rash METAL Allergy (Mild, Uncoded 06/06/23 10:17) HIVES HPI HPI Comments History of Present Illness Details Torrie is a 67yo F who presents for follow-up of generalized OA, possible PMR with elevated ESR/CRP and Prednisone course. The patient reports that she is on the last few days of prednisone. She reports she is feeling better and tries to be more active. She walks with her cane. She was dismissed from PT for non-compliance. Prior Visit: Patient presents for follow-up of her chronic back and knee pain. The knee pain is her most prominent pain symptom and it worsens with use. She states that she has frequent falls - when she tries to put weight on her legs, the knees give out. She manages her pain with Tramadol and gabapentin - pain contract in effect. She denies numbness in her lower extremities. Continues with Carpal tunnel symptoms both hands for which she wears cock-up splints at night. EMG 09/2021. She had started physical therapy which was prescribed at last visit but she found it very painful to continue and states that the physical therapist informed her that they could not help her. She she uses the bands they gave her to do some of the exercises at home. Patient is also complaining of upper arms and shoulder pain. She states it is challenging to comb or wash her hair. She can not hold up her arm for long periods. She continues to use the cane for walking stability. [facility] Medical History (Updated 06/06/23 @ 10:38 by CHIP MendosaP-) Osteoporosis Insulin dependent type 2 diabetes mellitus Elevated C-reactive protein Elevated sed rate Myalgia, upper arm Polymyalgia rheumatica syndrome Knee instability Back pain at L4-L5 level Knee pain, right Knee pain, left UTI (urinary tract infection) Proteinuria Hyperlipidemia Lumbar spondylosis Fibromyalgia Syncope COPD (chronic obstructive pulmonary disease) Depression Asthma Type 2 diabetes mellitus with hyperglycemia, with long-term current use of insulin Type 2 diabetes mellitus with chronic kidney disease Chronic kidney disease, stage 3 unspecified Type 2 diabetes mellitus with diabetic polyneuropathy Essential hypertension Surgical History Hx of mammogram Hx of colonoscopy Hx of oral surgery Hx of tubal ligation Family History Father No problems noted. Mother Heart disease CVD (cardiovascular disease) Diabetes Social History Household Members: Children Alcohol intake: never Patient Tobacco Use Status: Current everyday Tobacco user Tobacco use type: Cigarette Cigarettes Per Day: 4 Review of Systems Const All systems reviewed & are unremarkable except as noted in HPI and below Physical Exam Vital Signs: Last Vital Signs Temp 97 F 06/06/23 10:12 Pulse 102 H 06/06/23 10:12 BP 100/45 L 06/06/23 10:12 Pulse Ox 95 06/06/23 10:12 Oxygen Delivery Method Room Air 06/06/23 10:12 BMI result Body Mass Index 31.6 APPEARANCE: Patient in no acute distress, groomed, nourished EYES: no redness, eyelids normal EARS: External ear normal THROAT: Oral mucosa moist, no ulcerations NECK: No thyromegaly or masses, no adenopathy, trachea midline. HEART: Regular rhythm, S1-S2 heard, no murmurs, rubs or gallops. LUNG: Wheeze noted throughout bilaterally, respiratory rate regular and non- labored. EXTREMITIES: No edema, no calf tenderness, normal peripheral pulses. NEURO: Oriented and alert x3. No focal weakness. Walks with a cane SKIN: Skin otherwise with normal color and turgor, scattered scabbed lesions to forearms resolved. JOINT EXAM:?? Hands:? Normal pain-free range of motion without tenderness, swelling, increased warmth or erythema. 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 Wrists:Normal pain-free range of motion without tenderness, swelling, increased warmth or erythema. Elbows: Normal pain-free range of motion without tenderness, swelling, increased warmth or erythema. Shoulders:?? Decreased range of motion with pain markedly improved. Able to lift overhead. Tenderness resolved and weakness 3/5 remains but no swelling, increased warmth or erythema. Hips:? decreased Full range of motion without pain. Hip bursa:? mild tenderness to both resolved. Knees:??LEFT: Full range of motion with mild pain with tenderness to palpation of the medial joint line. No swelling, increased warmth or erythema.? There is mild crepitation RIGHT: Full range of motion with tenderness to palpation of the medial joint line. No swelling, increased warmth or erythema.? There is mild crepitation Ankles:? Normal pain-free range of motion without tenderness, swelling, increased warmth or erythema. Feet:? Normal pain-free range of motion without tenderness, swelling, increased warmth or erythema. Cock-up deformity consistent with hammertoe 2nd and 3rd toe bilaterally. Results Reviewed Results Reviewed: Laboratory Tests 02/08/23 10:39 ESR 55 H C-Reactive Protein 1.55 H January 2023 CLINICAL INFORMATION: Lower back pain. COMPARISON: Radiographs dated 07/24/2021. TECHNIQUE: AP and lateral views of the lumbar spine and lateral view of the lumbosacral junction. FINDINGS: There is bony demineralization. There is a moderately severe thoracolumbar rotatory dextroscoliosis. At L2-L3, there is marked disc space narrowing, with vigorous endplate sclerosis and a 5 mm retrolisthesis. At L4-L5, there is a 7 mm retrolisthesis. At L5-S1, there is moderate disc space narrowing. No acute fracture or spondylolisthesis is seen. There is multi-level lumbar spondylosis and facet arthropathy. The posterior elements are intact. There are aortoiliac atherosclerotic calcifications. XR/XR lumbar spine 2-3V IMPRESSION: 1. There is multi-level lumbar degenerative disc disease, spondylosis and facet arthropathy. Degenerative disc disease is most pronounced at L2-L3, where it is severe. 2. There is a moderately severe thoracolumbar rotatory dextroscoliosis. January 2023 XR/XR knee RT 3V IMPRESSION: 1. No fracture, dislocation joint effusion is seen. 2. There is minimal osteoarthritic change of the right patellofemoral compartment. IMPRESSION: 1. No fracture, dislocation or joint effusion is seen. 2. There is minimal osteoarthritic change of the left patellofemoral Ordering Physician: Kavya Reed Results: Date of Service: 02/26/23 Follow Up: Procedure(s): XR DEXA axial skeleton Accession Number(s): [id number] cc: Juan R Bey MD; Kavya Reed~ EXAMINATION: BONE DENSITOMETRY CLINICAL INDICATION: Age-related osteoporosis without current pathological fracture. COMPARISON: Baseline BD dated 08/31/2012. TECHNIQUE: Using a [employer] DXA System (software version: 13.1) manufactured by [employer], dual-energy x-ray absorptiometry was performed of the lumbar spine and left hip. The images are of good technical quality. Summary results are attached. FINDINGS: LEFT FEMUR, NECK: Current: BMD 0.723 g/cm2, Z-score -1.2, T-score -2.3, osteopenia. Baseline: BMD 0.768 g/cm2. LEFT FEMUR, TOTAL: Current: BMD 0.882 g/cm2, Z-score -0.3, T-score -1.0, normal, 3.3% decrease from baseline (<5% change is not significant). Baseline: BMD 0.912 g/cm2. AP SPINE L1-L4 (excluding L2 and L3): The data of L1-L4 has been changed to exclude the L2 and L3 vertebral bodies, because degenerative sclerosis at these levels may cause overestimation of lumbar spine density. Current: BMD 1.319 g/cm2, Z-score 2.1, T-score 1.3, normal, 18.2% increase from baseline (<5% change is not significant). Baseline: BMD 1.116 g/cm2. IDENTIFIED RISK FACTORS: Menopause, history of fracture (adult), recurrent falls, current smoker. HISTORY OF FRACTURE: Other. Forearm. MEDICATIONS: None listed. MM/XR DEXA axial skeleton IMPRESSION: 1. DIAGNOSIS: Osteopenia based on the lowest T-score value of -2.3 in the femoral neck applying World Health Organization criteria. 2. 10-YEAR FRACTURE RISK PREDICTION, FRAX: Major osteoporotic fracture (clinical spine, forearm, hip or shoulder) 12.1%. Hip fracture 3.7%. 3. Treatment Recommendations: NOF guidelines recommend consideration for treatment in postmenopausal women and men age 50 and older presenting with the following: -A hip or vertebral (clinical or morphometric) fracture. -T-score less than or equal to -2.5 at the femoral neck or spine after appropriate evaluation to exclude secondary causes. -Low bone mass at the hip or spine and a 10-year fracture probability by FRAX of greater than or equal to 3% for hip fracture or greater than or equal to 20% for major osteoporotic fracture based on the [place] adapted WHO algorithm. 4. Other Recommendations: All treatment decisions require clinical judgment and consideration of individual patient factors, including patient preferences, comorbidities, previous drug use, risk factors not captured in the FRAX model (e.g. frailty, falls, vitamin D deficiency, increased bone turnover, interval significant decline in bone density) and possible under or overestimation of fracture risk by FRAX. Additional medical evaluation for secondary cause of low bone mineral density may be appropriate. FUTURE SCAN RECOMMENDATION: People with diagnosed cases of osteoporosis or at high risk for fracture should have regular bone mineral density tests. For patients eligible for Medicare, routine testing is allowed once every 2 years. The testing frequency can be increased to one year for patients who have rapidly progressing disease, those who are receiving or discontinuing medical therapy to restore bone mass, or have additional risk factors. compartment. Laboratory Tests 06/05/23 13:47 WBC 10.9 H RBC 4.87 Hgb 14.3 ESR 28 H Uric Acid 4.4 Total Creatine Kinase 36 C-Reactive Protein 0.39 Assessment & Plan Assessment & Plan (1) Polymyalgia rheumatica syndrome: Code(s): M35.3 - Polymyalgia rheumatica (2) Knee pain, left: Code(s): M25.562 - Pain in left knee Qualifiers: Chronicity: chronic Qualified Code(s): M25.562 - Pain in left knee; G89.29 - Other chronic pain (3) Knee pain, right: Code(s): M25.561 - Pain in right knee Qualifiers: Chronicity: chronic Qualified Code(s): M25.561 - Pain in right knee; G89.29 - Other chronic pain (4) Insulin dependent type 2 diabetes mellitus: Code(s): E11.9 - Type 2 diabetes mellitus without complications; Z79.4 - FDC (current) use of insulin Plan #PMR: The patient has been on a course of prednisone since last visit. She will not concede too much but I do think she is feeling better after this course. Her ESR/CRP has improved much - ESR down from 55 to 38. CRP normalized (1.55 to 0.39). She is not tender on PE to upper arm muscles as before, but still maintain some tenderness to left shoulder joint. Her CK and Aldolase are still pending but I not suspect there will be any concerns there. Given her uncontrolled IDDM, I will not keep her on Prednisone longer, especially since she hesitates to report improvement. I will reassess her ESR/CRP again in 4 months. I discussed with patient that if they worsened then We will do a longer Prednisone taper. If she feels that she is worsening with return of pain and fatigue to upper arms, being off the prednisone, patient will call the office for earlier appointment. I spent 25 minutes reviewing chart, evaluating patient, counseling and documenting. Follow-up in 4 months Prior Visit 05/01/2023 #Osteoarthritis/Bilat Knee Pain: Ms. Brownlee reports she could not tolerated PT and will not continue. The cane has helped her with walking. I encouraged patient to do at home those lower extremity exercises that she finds tolerable. She will continue with Tramadol 50 mg b.i.d. and gabapentin. She also uses a home remedy of rubbing alcohol and avocado oil she gets from her daughter which adds some relief per patient. Patient is not satisfied with my reducing her tramadol to 50 mg b.i.d. from b.i.d. 100 mg. I discussed at length and trying to ease her mind that it is important for me to address her elevated inflammatory markers and to evaluate if there is an underlying inflammatory process to some of her pain levels. Having such high doses of tramadol is not beneficial to this treatment approach. #lumbar spondylosis. She continues with chronic low back pain. Her symptoms are generally worse in the winter months and better in the summer. Previously she had pain that comes and goes, she reports more constant pain in the lower back a fter a fall in May 2022. --Recommend updating lumbar spine x-ray to assess for compression etc - patient agrees/reorder from last visit. #PMR/Myalgia and elevated ESR/CRP: I suspect the patient may be suffering from polymyalgia rheumatic. Given her symptoms of upper extremities tenderness, decreased range of motion, and elevated CRP and she also describes weakness to her thighs. In reviewing her records I found rheumatology workup dating back to 2013. At that time she had markedly elevated CRP of 11.29 and ESR of 25. I have no additional records of these since then. It is not clear what was her diagnosis at that time. During examination today, patient remarked that she was told many years ago that she has myositis. I am not sure that was her findings however, However, I have a suspicion that her diagnosis may have been muscle related. I will start her on a course of prednisone and reassess for improvement in inflammatory markers and her upper extremity pain. I discussed with patient the short-term side effects of prednisone to include but not limited to insomnia, weight gain, elevated blood sugar levels. I told patient that it is the goal to reduce her inflammatory levels and the effects on her joints and muscles with a further goal goal to reduce pain levels and improve her functionality. I hope I was able to convince her and she will adhere to the current course of prednisone treatment. I will obtain labs to reassess ESR?CRP in 4 weeks and assess CK/Aldolase levels. #IDDM: Patient was cautioned to monitor her blood sugar for constant valley over 250 and to alert us if this happens on prednisone. #Osteoporiosis Screening:Patient's risk factors include PPI use, smoker. --Ordered DEXA to evaluate --Consider starting Calcium and Vit D at next visit after stabilized with the above. I have spent 45 minutes reviewing chart, evaluating patient, and documenting. Orders: Orders C Reactive Protein 3 Months M35.3 - Polymyalgia rheumatica, R70.0 - Elevated erythrocyte sedimentation rate, R79.82 - Elevated C-reactive protein (CRP) Complete Blood Count Auto Diff 3 Months M35.3 - Polymyalgia rheumatica, R70.0 - Elevated erythrocyte sedimentation rate, R79.82 - Elevated C-reactive protein (CRP), Z79.899 - Other ocean transportation intermediary (current) drug therapy Erythrocyte Sedimentation Rate 3 Months M35.3 - Polymyalgia rheumatica, R70.0 - Elevated erythrocyte sedimentation rate, R79.82 - Elevated C-reactive protein (CRP) Medications: New alendronate Take with a full glass of plain water only. Do not chew or suck on a tablet. Stay fully upright (sitting, standing, or walking) for at least 30 minutes after taking. 70 mg PO QWEEK 30 tabs 1RF M81.0 - Age-related osteoporosis without current pathological fracture Coding Level of Care Code Est Pt Level 3 (11260) Diagnoses Polymyalgia rheumatica syndrome M35.3 Chronic pain of left knee M25.562; G89.29 Chronicity: chronic Chronic pain of right knee M25.561; G89.29 Chronicity: chronic Insulin dependent type 2 diabetes mellitus E11.9; Z79.4
[2023-06-06 10:12] VITALS: BP 100/45; PULSE 102; TEMP 36.1; O2SAT 95; BMI 31.6
== END 2023-06-06 10:47 | disposition home or self-care (01) ==
PROVIDERS: PCP Internal Medicine; Visit Provider Nurse Practitioner Family
DX: M35.3 Polymyalgia rheumatica (principal); M25.562 Pain in left knee; G89.29 Other chronic pain; M25.561 Pain in right knee; E11.9 Type 2 diabetes mellitus without complications; Z79.4 Long term (current) use of insulin
CPT/HCPCS: 99213

== ENCOUNTER → 2023-06-06 10:04 | Outpatient (BNVA) | payer OTHER, SELFPAY | PROVIDERS: PCP Internal Medicine; Visit Provider Nurse Practitioner Family | DX: M35.3 Polymyalgia rheumatica (principal); M25.562 Pain in left knee; M25.561 Pain in right knee; G89.29 Other chronic pain; E11.9 Type 2 diabetes mellitus without complications; Z79.4 Long term (current) use of insulin | CPT/HCPCS: 99212 ==

== ENCOUNTER 2023-09-25 14:07 | Outpatient (REF) | payer OTHER, SELFPAY ==
[2023-09-25 14:23] LABS: MANUAL DIFF FLAG NO
[2023-09-25 14:57] LABS: Basophils Absolute Auto 0.1 X10*3/uL (0.0-0.2); Basophils Percent Auto 0.8 % (0-2); Eosinophils Absolute Auto 0.1 X10*3/uL (0.0-0.4); Eosinophils Percent Auto 0.7 % (0-4); Hematocrit 44.1 % (37.0-47.0); Hemoglobin 14.6 g/dl (12.0-16.0); Imm Gran Abs Auto 0.06 X10*3/uL (0.00-0.03); Imm Gran Pct Auto 0.5 % (0.0-0.4); Lymphocytes Absolute Auto 3.1 X10*3/uL (1.2-4.9); Lymphocytes Percent Auto 26.4 % (20-40); Mean Corpuscular HGB Conc 33.1 g/dl (31.0-35.0); Mean Corpuscular Hemoglobin 29.6 pg (27.0-33.0); Mean Corpuscular Volume 89.3 fL (80.0-98.0); Mean Platelet Volume 11.4 fL (9.4-12.3); Monocytes Absolute Auto 0.6 X10*3/uL (0.1-1.2); Monocytes Percent Auto 5.3 % (2-11); Neutrophils Absolute Auto 7.8 x10*3/uL (2.0-8.3); Neutrophils Percent Auto 66.3 % (45-73); Platelet Count 344 X10*3/uL (160-400); Red Blood Count 4.94 X10*6/uL (4.20-5.50); Red Cell Distribution Width 12.8 % (11.0-16.0); White Blood Count 11.7 X10*3/uL (4.8-10.8)
[2023-09-25 15:25] LABS: C Reactive Protein 1.37 mg/dL (< or = 0.50)
[2023-09-25 16:01] LABS: Erythrocyte Sedimentation Rate 59 MM/HR (0-20)
== END 2023-09-25 14:08 | disposition home or self-care (01) ==
LOC: HO.LAB 14:07
PROVIDERS: PCP Internal Medicine; Visit Provider Nurse Practitioner Family
DX: R79.82 Elevated C-reactive protein (CRP) (principal); R70.0 Elevated erythrocyte sedimentation rate; M35.3 Polymyalgia rheumatica
CPT/HCPCS: 36415; 85025; 85652; 86140

== ENCOUNTER 2023-09-26 10:44 | Outpatient (AMB) | payer OTHER, SELFPAY ==
--- NOTE | 2023-09-26 10:50 | MHC.OFFVIS ---
Vital Signs 09/26/23 10:56 Height 5 ft 6 in Weight 197 lb BMI 31.8 BP 132/54 L Blood Pressure Location Rt brachial Position Sitting Pulse 89 Pulse Oximetry (%) 93 Intake Visit Reasons: osteoarthritis/LVM/CM Intake Note: Patient last seen 06/06/23 by Brianna, presents today for follow up. Patient reports alendronate causing mouth dryness and leg weakness leading to frequent falls. She would like to discontinue medication today. Allergies insulin detemir Allergy (Intermediate, Verified 09/26/23 10:51) Rash penicillin V Allergy (Intermediate, Verified 09/26/23 10:51) Rash acetaminophen [From Tylenol] Allergy (Mild, Verified 09/26/23 10:51) ITCH,RASH iodine [Iodine] Allergy (Mild, Verified 09/26/23 10:51) HIVES penicillin G [Penicillin G] Allergy (Mild, Verified 09/26/23 10:51) RASH latex [LATEX] Allergy (Unknown, Verified 09/26/23 10:51) RASH trimerosal Allergy (Intermediate, Uncoded 09/26/23 10:51) rash Latex Gloves Allergy (Mild, Uncoded 09/26/23 10:51) Rash METAL Allergy (Mild, Uncoded 09/26/23 10:51) HIVES HPI Comments Details: Torrie is a 67yo F who presents for follow-up of generalized OA, SeroNeg RA, with elevated ESR/CRP. She reports she is feeling better most of the times iand tries to be more active, even though she alsways have pain. She walks with her cane. She was dismissed from PT for non-compliance. She continues to take the Leflunomide 20 mg QD, gabapentin 800 mg TID, Tramadol 50 mg BID. She stop the Alendronate as she says she was falling and losing her balance since she started taking it. --now drinks coffee with cinamon which she says is helping with weightloss. Prior Visit: Patient presents for follow-up of her chronic back and knee pain. The knee pain is her most prominent pain symptom and it worsens with use. She states that she has frequent falls - when she tries to put weight on her legs, the knees give out. She manages her pain with Tramadol and gabapentin - pain contract in effect. She denies numbness in her lower extremities. Continues with Carpal tunnel symptoms both hands for which she wears cock-up splints at night. EMG 09/2021. She had started physical therapy which was prescribed at last visit but she found it very painful to continue and states that the physical therapist informed her that they could not help her. She she uses the bands they gave her to do some of the exercises at home. Patient is also complaining of upper arms and shoulder pain. She states it is challenging to comb or wash her hair. She can not hold up her arm for long periods. She continues to use the cane for walking stability. [facility] Medical History (Updated 10/10/23 @ 01:15 [facility] Osteopenia Screening examination for infectious disease Long-term use of immunosuppressant medication Seronegative inflammatory arthritis Osteoporosis Insulin dependent type 2 diabetes mellitus Elevated C-reactive protein Elevated sed rate Myalgia, upper arm Polymyalgia rheumatica syndrome Knee instability Back pain at L4-L5 level Knee pain, right Knee pain, left UTI (urinary tract infection) Proteinuria Hyperlipidemia Lumbar spondylosis Fibromyalgia Syncope COPD (chronic obstructive pulmonary disease) Depression Asthma Type 2 diabetes mellitus with hyperglycemia, with long-term current use of insulin Type 2 diabetes mellitus with chronic kidney disease Chronic kidney disease, stage 3 unspecified Type 2 diabetes mellitus with diabetic polyneuropathy Essential hypertension Surgical History Hx of mammogram Hx of colonoscopy Hx of oral surgery Hx of tubal ligation Family History Father No problems noted. Mother Heart disease CVD (cardiovascular disease) Diabetes Social History Household Members: Children Alcohol intake: never Patient Tobacco Use Status: Current everyday Tobacco user Tobacco use type: Cigarette Cigarettes Per Day: 4 Review of Systems Const All systems reviewed & are unremarkable except as noted in HPI and below Physical Exam Vital Signs: Last Vital Signs Pulse 89 09/26/23 10:56 BP 132/54 L 09/26/23 10:56 Pulse Ox 93 09/26/23 10:56 BMI result Body Mass Index 31.8 APPEARANCE: Patient in no acute distress, groomed, nourished EYES: no redness, eyelids normal EARS: External ear normal THROAT: Oral mucosa moist, no ulcerations NECK: No thyromegaly or masses, no adenopathy, trachea midline. HEART: Regular rhythm, S1-S2 heard, no murmurs, rubs or gallops. LUNG: Wheeze noted throughout bilaterally, respiratory rate regular and non-labored. EXTREMITIES: No edema, no calf tenderness, normal peripheral pulses. NEURO: Oriented and alert x3. No focal weakness. Walks with a cane SKIN: Skin otherwise with normal color and turgor, scattered scabbed lesions to forearms resolved. JOINT EXAM:?? Hands:? Normal pain-free range of motion without tenderness, swelling, increased warmth or erythema. 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 Wrists:Normal pain-free range of motion without tenderness, swelling, increased warmth or erythema. Elbows: Normal pain-free range of motion without tenderness, swelling, increased warmth or erythema. Shoulders:?? Decreased range of motion with pain markedly improved. Able to lift overhead. Tenderness resolved and weakness 3/5 remains but no swelling, increased warmth or erythema. Hips:? decreased Full range of motion without pain. Hip bursa:? mild tenderness to both resolved. Knees:??LEFT: Full range of motion with mild pain with tenderness to palpation of the medial joint line. No swelling, increased warmth or erythema.? There is mild crepitation RIGHT: Full range of motion with tenderness to palpation of the medial joint line. No swelling, increased warmth or erythema.? There is mild crepitation Ankles:? Normal pain-free range of motion without tenderness, swelling, increased warmth or erythema. Feet:? Normal pain-free range of motion without tenderness, swelling, increased warmth or erythema. Cock-up deformity consistent with hammertoe 2nd and 3rd toe bilaterally. Results Reviewed Results Reviewed: EXAMINATION: BONE DENSITOMETRY CLINICAL INDICATION: Age-related osteoporosis without current pathological fracture. COMPARISON: Baseline BD dated 08/31/2012. TECHNIQUE: Using a [employer] DXA System (software version: 13.1) manufactured by [employer], dual-energy x-ray absorptiometry was performed of the lumbar spine and left hip. The images are of good technical quality. Summary results are attached. FINDINGS: LEFT FEMUR, NECK: Current: BMD 0.723 g/cm2, Z-score -1.2, T-score -2.3, osteopenia. Baseline: BMD 0.768 g/cm2. LEFT FEMUR, TOTAL: Current: BMD 0.882 g/cm2, Z-score -0.3, T-score -1.0, normal, 3.3% decrease from baseline (<5% change is not significant). Baseline: BMD 0.912 g/cm2. AP SPINE L1-L4 (excluding L2 and L3): The data of L1-L4 has been changed to exclude the L2 and L3 vertebral bodies, because degenerative sclerosis at these levels may cause overestimation of lumbar spine density. Current: BMD 1.319 g/cm2, Z-score 2.1, T-score 1.3, normal, 18.2% increase from baseline (<5% change is not significant). Baseline: BMD 1.116 g/cm2. IDENTIFIED RISK FACTORS: Menopause, history of fracture (adult), recurrent falls, current smoker. HISTORY OF FRACTURE: Other. Forearm. MEDICATIONS: None listed. MM/XR DEXA axial skeleton IMPRESSION: 1. DIAGNOSIS: Osteopenia based on the lowest T-score value of -2.3 in the femoral neck applying World Health Organization criteria. 2. 10-YEAR FRACTURE RISK PREDICTION, FRAX: Major osteoporotic fracture (clinical spine, forearm, hip or shoulder) 12.1%. Hip fracture 3.7%. 3. Treatment Recommendations: NOF guidelines recommend consideration for treatment in postmenopausal women and men age 50 and older presenting with the following: -A hip or vertebral (clinical or morphometric) fracture. -T-score less than or equal to -2.5 at the femoral neck or spine after appropriate evaluation to exclude secondary causes. -Low bone mass at the hip or spine and a 10-year fracture probability by FRAX of greater than or equal to 3% for hip fracture or greater than or equal to 20% for major osteoporotic fracture based on the [place] adapted WHO algorithm. 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 Category: Medical (3) Seronegative inflammatory arthritis: Code(s): M13.80 - Other specified arthritis, unspecified site Category: Medical (4) Long-term use of immunosuppressant medication: Code(s): Z79.60 - 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 The patient has been on a course of prednisone . She will not concede too much but I do think she is feeling better after this course. Her ESR/CRP has improved much - ESR was down from 55 to 38. CRP normalized (1.55 to 0.39) but they are both elevated again. She is not tender on PE to upper arm muscles as before, but still maintain some tenderness to left shoulder joint. Her CK and Aldolase are nornal so no concerns there. Given her uncontrolled IDDM, I will did not keep her on Prednisone long, especially since she hesitates to report improvement, it is hard to ascertain effectiveness. I will reassess her ESR/CRP again in 4 months. If she feels that she is worsening with return of pain and fatigue to upper arms, being off the prednisone, patient will call the office for earlier appointment. We will continue t monitor CMP and CBC for Leflunomide use. #Osteopenia: Patient's risk factors include PPI use, smoker. T-Score -2.3. Stopped alendronate but stopped due to side effects. Consider starting Calcium and Vit D at next visit after stabilized with the above. I spent 25 minutes reviewing chart, evaluating patient, counseling and documenting. Follow-up in 4 months Prior Visit 05/01/2023 #Osteoarthritis/Bilat Knee Pain: Ms. Brownlee reports she could not tolerated PT and will not continue. The cane has helped her with walking. I encouraged patient to do at home those lower extremity exercises that she finds tolerable. She will continue with Tramadol 50 mg b.i.d. and gabapentin. She also uses a home remedy of rubbing alcohol and avocado oil she gets from her daughter which adds some relief per patient. Patient is not satisfied with my reducing her tramadol to 50 mg b.i.d. from b.i.d. 100 mg. I discussed at length and trying to ease her mind that it is important for me to address her elevated inflammatory markers and to evaluate if there is an underlying inflammatory process to some of her pain levels. Having such high doses of tramadol is not beneficial to this treatment approach. #lumbar spondylosis. She continues with chronic low back pain. Her symptoms are generally worse in the winter months and better in the summer. Previously she had pain that comes and goes, she reports more constant pain in the lower back after a fall in May 2022. --Recommend updating lumbar spine x-ray to assess for compression etc - patient agrees/reorder from last visit. #PMR/Myalgia and elevated ESR/CRP: I suspect the patient may be suffering from polymyalgia rheumatic. Given her symptoms of upper extremities tenderness, decreased range of motion, and elevated CRP and she also describes weakness to her thighs. In reviewing her records I found rheumatology workup dating back to 2013. At that time she had markedly elevated CRP of 11.29 and ESR of 25. I have no additional records of these since then. It is not clear what was her diagnosis at that time. During examination today, patient remarked that she was told many years ago that she has myositis. I am not sure that was her findings however, However, I have a suspicion that her diagnosis may have been muscle related. I will start her on a course of prednisone and reassess for improvement in inflammatory markers and her upper extremity pain. I discussed with patient the short-term side effects of prednisone to include but not limited to insomnia, weight gain, elevated blood sugar levels. I told patient that it is the goal to reduce her inflammatory levels and the effects on her joints and muscles with a further goal goal to reduce pain levels and improve her functionality. I hope I was able to convince her and she will adhere to the current course of prednisone treatment. I will obtain labs to reassess ESR?CRP in 4 weeks and assess CK/Aldolase levels. #IDDM: Patient was cautioned to monitor her blood sugar for constant valley over 250 and to alert us if this happens on prednisone. #Osteoporiosis Screening:Patient's risk factors include PPI use, smoker. --Ordered DEXA to evaluate --Consider starting Calcium and Vit D at next visit after stabilized with the above. I have spent 45 minutes reviewing chart, evaluating patient, and documenting. Orders: Orders Erythrocyte Sedimentation Rate 2 Months M13.80 - Other specified arthritis, unspecified site, Z79.60 - [facility] (current) use of unspecified immunomodulators and immunosuppressants Comprehensive Met. 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 Hepatitis A,B,C Profile 09/26/23 Z79.60 - [facility] (current) use of unspecified immunomodulators and immunosuppressants, Z11.9 - Encounter for screening for infectious and parasitic diseases, unspecified C Reactive Protein 2 Months M13.80 - Other specified arthritis, unspecified site, Z79.60 - [facility] (current) use of unspecified immunomodulators and immunosuppressants Complete Blood Count Auto Diff 2 Months M13.80 - Other specified arthritis, unspecified site, Z79.60 - [employer] (current) use of unspecified immunomodulators and immunosuppressants Comprehensive Met. Panel 09/26/23 Z79.60 - [facility] (current) use of unspecified immunomodulators and immunosuppressants, Z11.9 - Encounter for screening for infectious and parasitic diseases, unspecified T Spot TB 09/26/23 Z79.60 - [employer] terminal supervisor (current) use of unspecified immunomodulators and immunosuppressants, Z11.9 - Encounter for screening for infectious and parasitic diseases, unspecified Medications: New leflunomide one tablet per day for two weeks and then go to two tablets per day. 90 tabs 0RF M13.80 - Other specified arthritis, unspecified site Changed From tramadol 50 mg PO BID PRN 60 tabs 2RF pain M47.816 - Spondylosis without myelopathy or radiculopathy, lumbar region To tramadol 50 mg PO TID PRN 90 tabs 2RF pain M47.816 - Spondylosis without myelopathy or radiculopathy, lumbar region On Hold alendronate Hold Comment: Doctor's Order 70 mg PO QWEEK 30 tabs 1RF M81.0 - Age-related osteoporosis without current pathological fracture Coding Level of Care Code Est Pt Level 3 (83509) Complex EM visit Add On G2211 Diagnoses Polymyalgia rheumatica syndrome M35.3 Insulin dependent type 2 diabetes mellitus E11.9; Z79.4 Seronegative inflammatory arthritis M13.80 Long-term use of immunosuppressant medication Z79.60 Osteopenia of lumbar spine M85.88 Osteopenia location: lumbar spine
[2023-09-26 10:56] VITALS: BP 132/54; PULSE 89; O2SAT 93; BMI 31.8
== END 2023-09-26 13:07 | disposition home or self-care (01) ==
PROVIDERS: PCP Internal Medicine; Visit Provider Nurse Practitioner Family
DX: M35.3 Polymyalgia rheumatica (principal); E11.9 Type 2 diabetes mellitus without complications; Z79.4 Long term (current) use of insulin; M13.80 Other specified arthritis, unspecified site; Z79.60 Long term (current) use of unspecified immunomodulators and immunosuppressants; M85.88 Other specified disorders of bone density and structure, other site
CPT/HCPCS: 99213; G2211

== ENCOUNTER → 2023-09-26 10:44 | Outpatient (BNVA) | payer OTHER, SELFPAY | PROVIDERS: PCP Internal Medicine; Visit Provider Nurse Practitioner Family | DX: M35.3 Polymyalgia rheumatica (principal); M13.80 Other specified arthritis, unspecified site; M85.88 Other specified disorders of bone density and structure, other site; E11.9 Type 2 diabetes mellitus without complications; Z79.4 Long term (current) use of insulin; Z79.60 Long term (current) use of unspecified immunomodulators and immunosuppressants | CPT/HCPCS: 99212 ==

== ENCOUNTER 2023-12-27 17:24 | Observation (INO) | payer OTHER, SELFPAY ==
--- NOTE | ~2023-12-27 | US_ITS ---
EXAMINATION: US EXTRACRANIAL CAROTID DUPLEX, BILATERAL CLINICAL INFORMATION: CVA versus TIA, right arm weakness COMPARISON: None available. TECHNIQUE: Real-time ultrasound and Doppler techniques (integrating B-mode 2-D vascular images, Doppler spectral analysis and color-flow Doppler imaging) were utilized to interrogate the extracranial carotid arteries, the vertebral arteries and proximal subclavian arteries bilaterally. The degree of stenosis is determined by criteria similar to NASCET. FINDINGS: Right Side: 1. There is no atherosclerotic plaque seen in the bifurcation/proximal ICA region. 2. The common carotid artery PSV proximally is 75 cm/s and distally 74 cm/s. 3. The proximal internal carotid artery velocities are 53 cm/s systolic and 9 cm/s diastolic. 4. The proximal external carotid artery PSV is 102 cm/s. 5. The vertebral artery shows antegrade flow. 6. The subclavian artery waveforms are normal. Left Side: 1. There is no atherosclerotic plaque seen in the bifurcation/proximal ICA region. 2. The common carotid artery PSV proximally is 107 cm/s and distally 58 cm/s. 3. The proximal internal carotid artery velocities are 59 cm/s systolic and 12 cm/s diastolic. 4. The proximal external carotid artery PSV is 91 cm/s. 5. The vertebral artery shows antegrade flow. 6. The subclavian artery waveforms are normal. Incidentally noted right nodule isoechoic to the thyroid measuring 3.1 x 2.8 x 3.0 cm. US/US carotid duplex BI IMPRESSION: 1. RIGHT: Minimal, non-hemodynamically significant stenosis of the proximal right internal carotid artery corresponding to a 0-49% stenosis by velocity criteria. 2. LEFT: Minimal, non-hemodynamically significant stenosis of the proximal left internal carotid artery corresponding to a 0-49% stenosis by velocity criteria. 3. Right thyroid nodule measuring 3.1 cm. Recommend further attenuation with nonemergent thyroid ultrasound Electronically signed by: Americo Morgan DO 12/28/2023 12:12 AM EDT
--- NOTE | ~2023-12-27 | MR_ITS ---
EXAMINATION: MR BRAIN WITHOUT CONTRAST CLINICAL INFORMATION: Right arm weakness COMPARISON: CT head December 27, 2023 and MRI brain October 07, 2007 TECHNIQUE: MRI of the brain was obtained using routine sequences without contrast. FINDINGS: No acute infarct. No acute intracranial hemorrhage or extra-axial fluid collection. Since October 07, 2007, new mild global cerebral volume loss. A few new T2 FLAIR hyperintense foci in the subcortical and periventricular white matter, nonspecific but presumably minimal chronic microangiopathy. No mass lesion, mass effect, or herniation pattern. Normal intracranial arterial and dural venous sinus flow voids. Normal appearance of the midline structures. The orbits are grossly unremarkable. Trace ethmoid air some mucosal thickening. Mild mucosal thickening/effusion in the left mastoid air cells. Partially imaged cervical spondylosis, including severe left-sided hypertrophic facet arthropathy. MR/MR head/brain wo con IMPRESSION: 1. No acute intracranial findings. 2. Since October 07, 2007, new mild global cerebral volume loss and minimal chronic microangiopathy. Electronically signed by: Lula Pickens MD 12/28/2023 11:28 AM EDT
--- NOTE | ~2023-12-27 | CT_ITS ---
EXAMINATION: CT head/brain wo IV con CLINICAL INFORMATION: blurry vision COMPARISON: CT head May 25, 2021 TECHNIQUE: Contiguous axial imaging was performed from the skull base to vertex without intravenous contrast. Sagittal and coronal reformatted images were obtained. This CT examination was performed using dose optimization techniques as appropriate, variously including the following: * Automated exposure control * Adjustment of mA and/or kV according to patient size (this includes techniques or standardized protocols for targeted exams where dose is matched to indication/reason for exam; i.e. extremities or head) Use of iterative reconstruction technique DLP: 646 mGy-cm FINDINGS: The ventricles and sulci are normal in size and configuration without significant volume loss or hydrocephalus. There is no abnormal attenuation within the brain parenchyma. No territorial loss of sorensen-white differentiation. No acute intracranial hemorrhage or extra-axial fluid collection. No mass lesion, significant mass effect, or herniation pattern. The orbits are grossly normal. Paranasal sinuses and mastoid air cells are well aerated. Osseous structures are intact. CT/CT head/brain wo IV con IMPRESSION: No acute intracranial abnormality. Specifically, no CT evidence of acute intracranial hemorrhage, significant mass effect, hydrocephalus, or large territorial infarction. Electronically signed by: Lula Pickens MD 12/27/2023 06:02 PM EDT
--- NOTE | 2023-12-27 17:27 | ED.GENADULT ---
HPI - General Adult General Chief complaint: Neuro Symptoms/Deficit Stated complaint: stroke? Time Seen by Provider: 12/27/23 19:14 Source: patient and family Mode of arrival: ambulatory Limitations: no limitations History of Present Illness ED Provider: Dr. Sophy Gerardo HPI narrative: Patient comes to the emergency room with multiple complaints. However, patient states that what is worrying her the most is that over last week she has had multiple episodes where she loses complete motor function of the right upper extremity. It started about a week ago, for the 1st 4 days of the week, patient she had multiple episodes of being unable to move the right arm at all. Patient states that for last 3 days, she has not had these symptoms. However, today she had a headache and blurred vision. Patient also complaining of chronic lower extremity weakness. -patient states that she has had CVAs in the past, last 1 in 2008 and then subsequently has had TIAs. The last time that she had a thorough workup for TIA/CVA was over 7 years ago in [place] Related Data Home Medications ?Medication ?Instructions ?Recorded ?Confirmed albuterol sulfate 90 mcg/actuation 2 puff inhalation Q6H PRN Wheezing 04/18/20 09/18/22 aerosol inhaler aspirin 81 mg tablet,delayed 81 mg PO DAILY 04/18/20 09/18/22 release atenolol 25 mg tablet 25 mg PO BID 04/18/20 09/18/22 fluticasone 500 mcg-salmeterol 50 1 inh inhalation BID 04/18/20 09/18/22 mcg/dose blistr powdr for inhalation (Advair Diskus) gabapentin 800 mg tablet 800 mg PO TID 04/18/20 09/18/22 losartan 100 mg tablet 100 mg PO DAILY 04/18/20 09/18/22 montelukast 10 mg tablet 10 mg PO BEDTIME 04/18/20 09/18/22 (Singulair) insulin syringe-needle U-100 1 mL #10 ea 05/29/20 09/18/22 31 gauge x 15/64 zolpidem 10 mg tablet 10 mg PO BEDTIME PRN Pain 05/29/20 09/18/22 clobetasol 0.05 % topical cream 1 appl topical BID 01/21/23 dulaglutide 4.5 mg/0.5 mL mg subcut 01/21/23 subcutaneous pen injector ([facility] polyvinyl alcohol 1.4 % eye drops drp ophthalmic (eye) 01/21/23 umeclidinium 62.5 mcg/actuation 1 inh inhalation DAILY 01/21/23 blister powder for inhalation (Incruse Ellipta) Previous Rx's ?Medication ?Instructions ?Recorded flash glucose scanning reader 1 ea miscellaneous DIRECTED 30 11/06/20 (FreeStyle Crystal 2 [place]) days #1 ea blood-glucose meter (FreeStyle #1 ea 04/19/21 Lite Meter kit) pen needle, diabetic 32 gauge x #150 ea 07/26/21 (BD Ultra-Fine Janene Pen Needle) insulin aspart U-100 100 unit/mL 17 unit (0.17 mL) subcut TID 30 08/01/21 (3 mL) subcutaneous pen (Novolog days #15 mL FlexPen U-100 Insulin aspart) insulin degludec 200 unit/mL (3 60 unit (0.3 mL) subcut BEDTIME 30 08/01/21 mL) subcutaneous pen (Tresiba days #9 mL FlexTouch U-200 insulin) flash glucose sensor (FreeStyle 1 ea miscellaneous Q2W #6 kits 08/29/21 Crystal 2 Sensor kit) blood sugar diagnostic (FreeStyle #400 ea 09/14/21 Lite Strips) lancets 28 gauge (FreeStyle #400 ea 09/14/21 Lancets) amlodipine 5 mg tablet 5 mg PO QPM #30 tabs 01/22/22 atorvastatin 40 mg tablet 40 mg PO BEDTIME #30 tabs 01/22/22 docusate sodium 100 mg capsule 100 mg PO BEDTIME #90 caps 01/29/22 Cane #1 ea 01/22/23 oxybutynin chloride 10 mg 10 mg PO DAILY #90 tabs 03/20/23 tablet,extended release 24 hr alendronate 70 mg tablet 70 mg PO QWEEK #30 tabs 06/06/23 leflunomide 10 mg tablet See Rx Instructions PO DAILY #90 09/26/23 tabs tramadol 50 mg tablet 50 mg PO TID PRN pain #90 tabs 12/24/23 Allergies Allergy/AdvReac Type Severity Reaction Status Date / Time insulin detemir Allergy Intermediate Rash Verified 12/27/23 17:34 penicillin V Allergy Intermediate Rash Verified 12/27/23 17:34 acetaminophen [From Tylenol] Allergy Mild ITCH,RASH Verified 12/27/23 17:34 iodine [Iodine] Allergy Mild HIVES Verified 12/27/23 17:34 penicillin G [Penicillin G] Allergy Mild RASH Verified 12/27/23 17:34 latex [LATEX] Allergy Unknown RASH Verified 12/27/23 17:34 trimerosal Allergy Intermediate rash Uncoded 09/26/23 10:51 Latex Gloves Allergy Mild Rash Uncoded 09/26/23 10:51 METAL Allergy Mild HIVES Uncoded 09/26/23 10:51 Review of Systems Review of Systems: Constitutional : No Weight loss, No Fever, No Chills, No Night Sweats, No Fatigue, No Malaise ENT/Mouth : No Hearing loss, No Ear Pain, No Nasal Congestion, No Sinus Pain, No Hoarseness, No sore throat, No Rhinorrhea, No Swallowing Difficulty Eyes: No Eye Pain, No Swelling, No Redness, No Foreign Body, No Discharge, No Vision Changes Cardiovascular : No Chest Pain, No SOB, No Dyspnea on Exertion, No Orthopnea, No Edema, No Palpitations Respiratory : No Cough, No Sputum, No Wheezing, No Smoke Exposure, No Dyspnea Gastrointestinal : No Nausea, No Vomiting, No Diarrhea, No Constipation, No abdominal Pain, No Hematochezia, No Melena Genitourinary : no irregular bleeding, No Dysuria, No Urinary Frequency, No Hematuria, No Urinary Incontinence, No Urgency, No Flank Pain, No Urinary Flow Changes, No Hesitancy Musculoskeletal : No joint pain, No Myalgias, No Joint Swelling Skin : No Skin Lesions, No rash Neuro : So they have headache with double vision. Within a week, patient has had multiple episodes of loss of motor function of right upper extremity intermittently. Psych : No Anxiety/Panic, No Depression, No SI/HI/AH/VH, No Social Issues, Heme/Lymph: No Bruising, No Bleeding,No Lymphadenopathy Endocrine : No Polyuria, No Polydipsia, No Temperature Intolerance [facility] Past Medical History Medical History (Updated 12/27/23 @ 20:55 by Sophy Gerardo MD) CVA (cerebral vascular accident) Osteopenia Screening examination for infectious disease Long-term use of immunosuppressant medication Seronegative inflammatory arthritis Osteoporosis Insulin dependent type 2 diabetes mellitus Elevated C-reactive protein Elevated sed rate Myalgia, upper arm Polymyalgia rheumatica syndrome Knee instability Back pain at L4-L5 level Knee pain, right Knee pain, left UTI (urinary tract infection) Proteinuria Hyperlipidemia Lumbar spondylosis Fibromyalgia Syncope COPD (chronic obstructive pulmonary disease) Depression Asthma Type 2 diabetes mellitus with hyperglycemia, with long-term current use of insulin Type 2 diabetes mellitus with chronic kidney disease Chronic kidney disease, stage 3 unspecified Type 2 diabetes mellitus with diabetic polyneuropathy Essential hypertension Surgical History Hx of mammogram Hx of colonoscopy Hx of oral surgery Hx of tubal ligation Family History Family History Father No problems noted. Mother Heart disease CVD (cardiovascular disease) Diabetes Social History Social History Household Members: Children Alcohol intake: never Patient Tobacco Use Status: Current everyday Tobacco user Tobacco use type: Cigarette Cigarettes Per Day: 4 Smoked in Last 30 Days: Yes Use of substances other than those prescribed or required for medical reasons: No Advance Directives: No Advance Directives Information Provided: No Physical Exam ED Vital Signs: Vital Signs - 24 hr 12/27/23 17:28 12/27/23 18:38 Temperature 97.8 F Pulse Rate 89 74 Respiratory Rate 16 18 Blood Pressure 145/62 H 147/53 H Pulse Oximetry 98 96 Oxygen Delivery Method Room Air Room Air BMI result Body Mass Index 28.6 NIH Stroke Scale Internal: Initial- Upon Arrival Level of Consciousness: Alert Level of Consciousness Questions: Answers both questions correctly Level of Consciousness Commands: Performs both tasks correctly Best Gaze: Normal Visual: No visual loss Facial Palsy: Normal Motor Arm (Right): No drift Motor Arm (Left): No drift Motor Leg (Right): No drift Motor Leg (Left): No drift Limb Ataxia: Absent Sensory: Normal Best Language: No aphasia Dysarthia: Normal Extinction and Inattention: No abnormality Score: 0 Course Course Course Narrative: RME performed by Micaela Hunter PA-C. Patient is a 68 year old assigned female at presenting to the emergency department with pain everywhere and weakness. Patient states that her right knee is crackling and feels weaker than her other leg. Detailed physical exam and review of systems are deferred to the primary care sales representative. EKG, labs, and swabs ordered. Patient placed back in the waiting room pending room availability and results. Medical Decision Making Medical Decision Making [facility] Narrative: My interpretation the of EKG: Sinus rhythm, heart rate 81, no ST segment depression or elevation, no T-wave inversion, QTC 466, EKG poor quality, interference -my interpretation of labs, white blood cell count but important which is chronic for the patient. Chemistry: No obvious abnormality. Troponin negative -patient's NIH score is 0, patient is outside of the window of treatment for thrombolytics. Differential Diagnosis Differential Diagnoses: The differential diagnosis associated with the presentation includes (TIA, CVA, migraine) Admission/Observation Consideration of admission/observation: Escalation of care including admission/observation considered Consult Healthcare Provider Management of the patient was discussed with: Hospitalist Lab Data [facility] Lab Attestation statement: I reviewed the patient's lab results. 12/27/23 17:43 12/27/23 17:43 Labs: Lab Results 12/27/23 Range/Units 17:43 WBC 14.8 H (4.8-10.8) X10*3/uL RBC 4.42 (4.20-5.50) X10*6/uL Hgb 13.3 (12.0-16.0) g/dl Hct 40.3 (37.0-47.0) % MCV 91.2 (80.0-98.0) fL MCH 30.1 (27.0-33.0) pg MCHC 33.0 (31.0-35.0) g/dl RDW 13.5 (11.0-16.0) % Plt Count 338 (160-400) X10*3/uL MPV 9.9 (9.4-12.3) fL Immature Gran % (Auto) 0.5 H (0.0-0.4) % Neut % (Auto) 71.0 (45-73) % Lymph % (Auto) 21.1 (20-40) % [place] % (Auto) 5.1 (2-11) % Eos % (Auto) 1.6 (0-4) % Baso % (Auto) 0.7 (0-2) % Lymph # (Auto) 3.1 (1.2-4.9) X10*3/uL [facility] # (Auto) 0.8 (0.1-1.2) X10*3/uL Eos # (Auto) 0.2 (0.0-0.4) X10*3/uL Baso # (Auto) 0.1 (0.0-0.2) X10*3/uL Abs Immat Gran (auto) 0.08 H (0.00-0.03) X10*3/uL Absolute Neuts (auto) 10.5 H (2.0-8.3) x10*3/uL Absolute Nucleated RBC 0.000 (0.0-0.012) X10*3/uL Nucleated RBC % (auto) 0.0 (0.0-0.2) /100WBC Sodium 140 (135-145) mmol/L Potassium 4.8 (3.3-5.1) mmol/L Chloride 104 (96-108) mmol/L Carbon Dioxide 25 (22-29) mmol/L Anion Gap 16 (12-20) BUN 14 (9-16) mg/dL Creatinine 0.75 (0.5-1.4) mg/dL Estim Creat Clear Calc 76.7 Estimated GFR > 60 Random Glucose 187 H (60-115) mg/dL Calcium 9.2 (8.4-10.2) mg/dL Magnesium 1.7 (1.6-2.6) mg/dL Total Bilirubin 0.2 (0.0-1.0) mg/dL AST 11 (5-31) U/L ALT 10 (0-31) U/L Alkaline Phosphatase 117 (39-117) U/L Troponin I High Sens < 2.7 (<3.5-17.0) ng/L Total Protein 7.4 (6.5-8.0) g/dL Albumin 3.7 (3.5-5.0) g/dL Influenza Type A (PCR) NEGATIVE (Negative) Influenza Type B (PCR) NEGATIVE (Negative) RSV RNA Qual (PCR) NEGATIVE (Negative) SARS-CoV-2 RNA (RT-PCR) NEGATIVE (Negative) Independent Interpretation I performed an independent interpretation of an: CT Scan Radiology Impression Discussion of test interpretation with radiology: I have reviewed the radiologist's reading. Radiologist Impression: The ventricles and sulci are normal in size and configuration without significant volume loss or hydrocephalus. There is no abnormal attenuation within the brain parenchyma. No territorial loss of sorensen-white differentiation. No acute intracranial hemorrhage or extra-axial fluid collection. No mass lesion, significant mass effect, or herniation pattern. The orbits are grossly normal. Paranasal sinuses and mastoid air cells are well aerated. Osseous structures are intact. CT/CT head/brain wo IV con IMPRESSION: No acute intracranial abnormality. Specifically, no CT evidence of acute intracranial hemorrhage, significant mass effect, hydrocephalus, or large territorial infarction. Critical Care Time Critical Care Time Critical Care Time: Yes Total Critical Care Time: 60 Attestation: I have personally provided critical care time. Time includes review of lab data, radiology results, discussion with consultants, and monitoring for potential decompensation. Intervention performed as documented. Discharge Plan Discharge Clinical Impression: Brain TIA Patient Disposition: Admitted As Inpatient Prescriptions: No Action flash glucose scanning reader [FreeStyle Crystal 2 [place]] Misc 1 ea miscellaneous DIRECTED 30 Days Qty: 1 0RF Tresiba FlexTouch U-200 200 unit/mL (3 mL) insulin pen 60 unit subcut BEDTIME 30 Days Qty: 9 11RF insulin aspart U-100 [Novolog FlexPen U-100 Insulin] 100 unit/mL (3 mL) insulin pen 17 unit subcut TID 30 Days Qty: 15 6RF Patient Comments: 7 units this am FreeStyle Crystal 2 Sensor Kit 1 ea miscellaneous Q2W Qty: 6 3RF (DME) lancets [FreeStyle Lancets] 28 gauge misc See Rx Instructions .ROUTE .MEDSUPPLY Qty: 400 10RF Rx Instructions: four times a day (DME) FreeStyle Lite Strips Strip See Rx Instructions .ROUTE .MEDSUPPLY Qty: 400 10RF Rx Instructions: four times a day atorvastatin 40 mg tablet 40 mg PO BEDTIME Qty: 30 2RF amlodipine 5 mg tablet 5 mg PO QPM Qty: 30 2RF tramadol 50 mg tablet 50 mg PO TID PRN (Reason: pain) Qty: 90 3RF (DME) blood-glucose meter [FreeStyle Lite Meter] Kit See Rx Instructions .ROUTE .MEDSUPPLY Qty: 1 0RF Rx Instructions: As directed albuterol sulfate 90 mcg/actuation HFA aerosol inhaler 2 puff inhalation Q6H PRN (Reason: Wheezing) fluticasone propion-salmeterol [Advair Diskus] 500-50 mcg/dose blister with device 1 inh inhalation BID gabapentin 800 mg tablet 800 mg PO TID losartan 100 mg tablet 100 mg PO DAILY aspirin 81 mg tablet,delayed release (DR/EC) 81 mg PO DAILY montelukast [Singulair] 10 mg tablet 10 mg PO BEDTIME atenolol 25 mg tablet 25 mg PO BID (DME) insulin syringe-needle U-100 1 mL 31 gauge x 15/64 syringe See Rx Instructions .ROUTE BID Qty: 10 Rx Instructions: As directed zolpidem 10 mg tablet 10 mg PO BEDTIME PRN (Reason: Pain) (DME) pen needle, diabetic [BD Ultra-Fine Janene Pen Needle] 32 gauge x 5/32 needle See Rx Instructions .ROUTE .MEDSUPPLY Qty: 150 11RF Rx Instructions: As directed four times a day docusate sodium 100 mg capsule 100 mg PO BEDTIME Qty: 90 3RF polyvinyl alcohol 1.4 % drops ophthalmic (eye) clobetasol 0.05 % cream 1 appl topical BID Incruse Ellipta 62.5 mcg/actuation blister with device 1 inh inhalation DAILY Trulicity 4.5 mg/0.5 mL pen injector subcut (DME) Cane See Rx Instructions .Route .MEDSUPPLY Qty: 1 0RF Rx Instructions: As directed oxybutynin chloride 10 mg tablet extended release 24hr 10 mg PO DAILY Qty: 90 3RF leflunomide 10 mg tablet See Rx Instructions PO DAILY Qty: 90 0RF Rx Instructions: one tablet per day for two weeks and then go to two tablets per day. alendronate 70 mg tablet 70 mg PO QWEEK Qty: 30 1RF Rx Instructions: Take with a full glass of plain water only. Do not chew or suck on a tablet. Stay fully upright (sitting, standing, or walking) for at least 30 minutes after taking. Print Language: Armenian
[2023-12-27 17:28] VITALS: BP 145/62; PULSE 89; RESP 16; TEMP 36.6; O2SAT 98; BMI 28.6
--- NOTE | 2023-12-27 17:30 | ECG_ITS ---
Test Reason : WEAKNESS Blood Pressure : / mmHG Vent. Rate : 081 BPM Atrial Rate : 081 BPM P-R Int : 108 ms QRS Dur : 088 ms QT Int : 402 ms P-R-T Axes : 041 -08 002 degrees QTc Int : 466 ms Poor data quality, interpretation may be adversely affected Sinus rhythm with short CT ST & T wave abnormality, consider inferior ischemia Abnormal ECG When compared with ECG of 25-MAY-2021 12:17, T wave inversion now evident in Inferior leads Referred By: Micaela Hunter Electronically Signed By:SUHAIL HUGHES
[2023-12-27 17:48] LABS: Basophils Absolute Auto 0.1 X10*3/uL (0.0-0.2); Basophils Percent Auto 0.7 % (0-2); Eosinophils Absolute Auto 0.2 X10*3/uL (0.0-0.4); Eosinophils Percent Auto 1.6 % (0-4); Hematocrit 40.3 % (37.0-47.0); Hemoglobin 13.3 g/dl (12.0-16.0); Imm Gran Abs Auto 0.08 X10*3/uL (0.00-0.03); Imm Gran Pct Auto 0.5 % (0.0-0.4); Lymphocytes Absolute Auto 3.1 X10*3/uL (1.2-4.9); Lymphocytes Percent Auto 21.1 % (20-40); MANUAL DIFF FLAG NO; Mean Corpuscular Hemoglobin 30.1 pg (27.0-33.0); Mean Corpuscular Volume 91.2 fL (80.0-98.0); Mean Platelet Volume 9.9 fL (9.4-12.3); Monocytes Absolute Auto 0.8 X10*3/uL (0.1-1.2); Monocytes Percent Auto 5.1 % (2-11); Neutrophils Absolute Auto 10.5 x10*3/uL (2.0-8.3); Platelet Count 338 X10*3/uL (160-400); Red Blood Count 4.42 X10*6/uL (4.20-5.50); Red Cell Distribution Width 13.5 % (11.0-16.0); White Blood Count 14.8 X10*3/uL (4.8-10.8)
[2023-12-27 18:05] LABS: Alanine Aminotransferase 10 U/L (0-31); Albumin Level 3.7 g/dL (3.5-5.0); Alkaline Phosphatase 117 U/L (39-117); Anion Gap 16 (12-20); Aspartate Amino Transferase 11 U/L (5-31); Bilirubin Total 0.2 mg/dL (0.0-1.0); Blood Urea Nitrogen 14 mg/dL (9-16); Calcium 9.2 mg/dL (8.4-10.2); Carbon Dioxide 25 mmol/L (22-29); Chloride 104 mmol/L (96-108); Creatinine Clr Calc Pharmacy 76.7; Estimated Glomerular Filt Rate > 60; Glucose Random 187 mg/dL (60-115); Magnesium 1.7 mg/dL (1.6-2.6); Potassium 4.8 mmol/L (3.3-5.1); Sodium 140 mmol/L (135-145); Total Protein 7.4 g/dL (6.5-8.0)
[2023-12-27 18:27] LABS: Influenza A PCR NEGATIVE (Negative); Influenza B PCR NEGATIVE (Negative); Resp Syncy Virus RNA Qual PCR NEGATIVE (Negative); SARS COV2 PCR INHOUSE NEGATIVE (Negative)
[2023-12-27 18:31] LABS: Troponin-I High Sensitivity < 2.7 ng/L (<3.5-17.0)
[2023-12-27 18:38] VITALS: BP 147/53; PULSE 74; RESP 18; O2SAT 96
--- NOTE | 2023-12-27 18:38 | PC.NURSE ---
Patient reports blurry/double vision with headache x 3 days. Patient states has feels weak and has multiple falls over the last few weeks with last fall being x 1 week ago with headstrike. Patient reports knee pain that is worse in the right knee. Usually ambulates with wheeled walker but recently has had trouble even with the walker. Reports neuropathy in feet d/t diabetes.
--- NOTE | 2023-12-27 18:58 | PC.NURSE ---
Report received from Karen KENNEDY, assume care of pt at this time
[2023-12-27] MEDS: Nicotine 21 MG PATCH.TD24 TRANSDERMA (21:16)
--- NOTE | 2023-12-27 21:19 | P.HPHOSP_ITS ---
History of Present Illness Date of Service: 12/27/23 Attending physician on admission: [facility] Chief Complaint: Right arm weakness, blurry vision, [place] Pt is a 68-year-old female with a PMH significant for HTN, HLD, CVAs in 2008,?TIA, COPD, insulin-dependent type 2 diabetes, fibromyalgia, and peripheral neuropathy who presents to the ED with?intermittent right arm weakness x3 days. Patient reports for the past 3 days she has had intermittent loss of function of her right upper extremity where she has suddenly no longer able to move her arm or grasp onto objects. It is unclear how many episodes she has had, but each episode usually lasts 5-10 minutes before resolving. Family is at bedside who state patient was also noted to have difficulty speaking during at least 1 of these episodes. Patient reports she does not like hospitals and refused to be brought to the ED when symptoms began. This morning however, patient began to have severe neck pain that radiated up the back of her head and also experienced blurry vision which then prompted her visit to the hospital for further evaluation. Also has been experiencing increased shortness a breath and chest tightness. Complains of worsening chronic lower extremity weakness especially in her right leg. Patient at baseline has difficulty ambulating, uses a seated walker but with assistance. Chronic numbness and tingling in feet from peripheral neuropathy at baseline. Patient is an active smoker of around 1 pack a day. In the ED pt was hypertensive up to 147/53, vitals otherwise WNL. Labs were significant for leukocytosis of 14.8, otherwise grossly unremarkable and baseline for patient. Stable H& H. No significant electrolyte abnormalities. Renal and hepatic function WNL. Troponin negative. CT?of head showed no acute intracranial abnormality, including acute intracranial hemorrhage, mass effect, hydrocephalus, or large territorial infarction. EKG demonstrated sinus rhythm without evidence of significant ST elevations or depressions. Pt will be admitted to the hospital under observation for further evaluation of intermittent right upper extremity weakness with blurriness and headache concerning for TIA versus CVA. Review of Systems 2 Review of Systems: Right upper extremity weakness x3 days Headache, blurriness SOB, chest tightness Worsening chronic lower extremity weakness [facility] Medical History CVA (cerebral vascular accident) Osteopenia Screening examination for infectious disease Long-term use of immunosuppressant medication Seronegative inflammatory arthritis Osteoporosis Insulin dependent type 2 diabetes mellitus Elevated C-reactive protein Elevated sed rate Myalgia, upper arm Polymyalgia rheumatica syndrome Knee instability Back pain at L4-L5 level Knee pain, right Knee pain, left UTI (urinary tract infection) Proteinuria Hyperlipidemia Lumbar spondylosis Fibromyalgia Syncope COPD (chronic obstructive pulmonary disease) Depression Asthma Type 2 diabetes mellitus with hyperglycemia, with long-term current use of insulin Type 2 diabetes mellitus with chronic kidney disease Chronic kidney disease, stage 3 unspecified Type 2 diabetes mellitus with diabetic polyneuropathy Essential hypertension Family History Father No problems noted. Mother Heart disease CVD (cardiovascular disease) Diabetes Surgical History Hx of mammogram Hx of colonoscopy Hx of oral surgery Hx of tubal ligation Social History Household Members: Children Alcohol intake: never Patient Tobacco Use Status: Current everyday Tobacco user Tobacco use type: Cigarette Cigarettes Per Day: 4 Smoked in Last 30 Days: Yes Use of substances other than those prescribed or required for medical reasons: No Advance Directives: No Advance Directives Information Provided: No Meds Allergies Allergy/AdvReac Type Severity Reaction Status Date / Time insulin detemir Allergy Intermediate Rash Verified 12/27/23 17:34 penicillin V Allergy Intermediate Rash Verified 12/27/23 17:34 acetaminophen [From Tylenol] Allergy Mild ITCH,RASH Verified 12/27/23 17:34 iodine [Iodine] Allergy Mild HIVES Verified 12/27/23 17:34 penicillin G [Penicillin G] Allergy Mild RASH Verified 12/27/23 17:34 latex [LATEX] Allergy Unknown RASH Verified 12/27/23 17:34 trimerosal Allergy Intermediate rash Uncoded 09/26/23 10:51 Latex Gloves Allergy Mild Rash Uncoded 09/26/23 10:51 METAL Allergy Mild HIVES Uncoded 09/26/23 10:51 Active Medications: Current Medications Benzonatate (Benzonatate 100 Mg Capsule) 100 mg PO TID PRN PRN Reason: Cough Calcium Carbonate (Calcium Carbonate 750 Mg Tab.Chew) 750 mg PO Q4H PRN PRN Reason: Heartburn Enoxaparin Sodium (Enoxaparin Sodium 40 Mg/0.4 Ml Syringe) 40 mg SUBCUT Q24H [facility] Ibuprofen (Ibuprofen 400 Mg Tablet) 400 mg PO Q4H PRN PRN Reason: Pain, Mild (Pain Scale 1-3) Magnesium Hydroxide (Milk Of Magnesia 30 Ml Oral.Susp) 30 ml PO DAILY PRN PRN Reason: Constipation Melatonin (Melatonin 3 Mg Tablet) 6 mg PO BEDTIME PRN PRN Reason: Insomnia Nicotine (Nicotine 21 Mg Patch.Td24) 21 mg TRANSDERMA DAILY [facility] Last Admin: 12/27/23 21:16 Dose: 21 mg Ondansetron HCl (Ondansetron Hcl 4 Mg/2 Ml Vial) 4 mg IVPUSH Q8H PRN PRN Reason: Nausea and Vomiting Sodium Chloride (0.9 % Sodium Chloride Flush 3 Ml Syringe) 3 ml IVFLUSH QSHIFT [facility] Home Medications ?Medication ?Instructions ?Recorded ?Confirmed ?Last Taken ?Type albuterol sulfate 90 mcg/actuation 2 puff inhalation Q6H PRN Wheezing 04/18/20 09/18/22 Unknown History aerosol inhaler aspirin 81 mg tablet,delayed 81 mg PO DAILY 04/18/20 09/18/22 02/25/22 History release atenolol 25 mg tablet 25 mg PO BID 04/18/20 09/18/22 03/05/22 History fluticasone 500 mcg-salmeterol 50 1 inh inhalation BID 04/18/20 09/18/22 Unknown History mcg/dose blistr powdr for inhalation (Advair Diskus) gabapentin 800 mg tablet 800 mg PO TID 04/18/20 09/18/22 03/05/22 History losartan 100 mg tablet 100 mg PO DAILY 04/18/20 09/18/22 03/05/22 History montelukast 10 mg tablet 10 mg PO BEDTIME 04/18/20 09/18/22 Unknown History (Singulair) insulin syringe-needle U-100 1 mL #10 ea 05/29/20 09/18/22 Unknown History 31 gauge x 15/64 zolpidem 10 mg tablet 10 mg PO BEDTIME PRN Pain 05/29/20 09/18/22 Unknown History clobetasol 0.05 % topical cream 1 appl topical BID 01/21/23 Unknown History dulaglutide 4.5 mg/0.5 mL mg subcut 01/21/23 Unknown History subcutaneous pen injector (Trulicity) polyvinyl alcohol 1.4 % eye drops drp ophthalmic (eye) 01/21/23 Unknown History umeclidinium 62.5 mcg/actuation 1 inh inhalation DAILY 01/21/23 Unknown History blister powder for inhalation (Incruse Ellipta) Physical Exam 2 Vital Signs and Narrative: Vital Signs: Last Vital Signs Temp 97.8 F 12/27/23 17:28 Pulse 74 12/27/23 18:38 Resp 18 12/27/23 18:38 BP 147/53 H 12/27/23 18:38 Pulse Ox 96 12/27/23 18:38 O2 Del Method Room Air 12/27/23 18:38 BMI result Body Mass Index 28.6 Constitutional: Alert, in no acute distress. Mental Status: Oriented to person, place and time. Eyes: Pupils are equal, round, and reactive to light. Ear, Nose, and Throat: Oropharynx clear, mucous membranes moist. Ears and nose without deformities. Trachea midline. Respiratory: Clear to auscultation bilaterally. No wheezing, rales, or rhonchi. Cardiovascular: S1, S2 regular. 2/6 murmur heard at right sternal border. Gastrointestinal: Abdomen soft, non-tender, non-distended. Normal bowel sounds. Neurologic: Cranial nerves II-XII are grossly intact bilaterally. No focal neurological deficits. Moves all extremities spontaneously, though with chronic right leg strength 1/5. LLE strength 3/5. Reduced sensation to light tougch of right face and RUE. Preserved retail parts pro strength. Strength of upper extremities bilaterally preserved and symmetrical no tongue deviation. EOM intact. No facial droop. Skin: Warm, dry. Extremities: No edema. Psychiatric: Normal mood and affect. Results Labs 12/27/23 17:43 12/27/23 17:43 Labs: Laboratory Results - last 24 hr 12/27/23 17:43 MCV 91.2 MCH 30.1 MCHC 33.0 RDW 13.5 Plt Count 338 MPV 9.9 Immature Gran % (Auto) 0.5 H Neut % (Auto) 71.0 Lymph % (Auto) 21.1 [place] % (Auto) 5.1 Eos % (Auto) 1.6 Baso % (Auto) 0.7 Lymph # (Auto) 3.1 [place] # (Auto) 0.8 Eos # (Auto) 0.2 Baso # (Auto) 0.1 Abs Immat Gran (auto) 0.08 H Absolute Neuts (auto) 10.5 H Absolute Nucleated RBC 0.000 Nucleated RBC % (auto) 0.0 Anion Gap 16 Estim Creat Clear Calc 76.7 Estimated GFR > 60 Random Glucose 187 H Calcium 9.2 Magnesium 1.7 Total Bilirubin 0.2 AST 11 ALT 10 Alkaline Phosphatase 117 Troponin I High Sens < 2.7 Total Protein 7.4 Albumin 3.7 Influenza Type A (PCR) NEGATIVE Influenza Type B (PCR) NEGATIVE RSV RNA Qual (PCR) NEGATIVE SARS-CoV-2 RNA (RT-PCR) NEGATIVE Imaging Radiologist's Impressions: Impressions Head CT 12/27/23 17:41 IMPRESSION: No acute intracranial abnormality. Specifically, no CT evidence of acute intracranial hemorrhage, significant mass effect, hydrocephalus, or large territorial infarction. Electronically signed by: Lula Pickens MD 12/27/2023 06:02 PM EDT RP Assessment and Plan (1) Right arm weakness: Status: Acute Plan Pt is a 68-year-old female with a PMH significant for HTN, HLD, CVAs in 2008,?TIA, COPD, insulin-dependent type 2 diabetes, fibromyalgia, and peripheral neuropathy who presents to the ED with?intermittent right arm weakness x3 days. Pt will be admitted to the hospital under observation for further evaluation of intermittent right upper extremity weakness with blurriness and headache concerning for TIA versus CVA. Right upper extremity weakness, blurriness, headache Concerning for TIA vs CVA CT of head negative for acute intracranial abnormality Carotid ultrasound MRI of head/brain Lipid profile PT/OT evaluation Neurology consult Consider echocardiogram pending neurology input Continue aspirin, statin Monitor on telemetry Lower extremity weakness Chronic though worsening the past 6+ months Uses seated walker with assistance for ambulation PT evaluation Leukocytosis WBCs 14.8 at time of presentation Likely reactionary No clear source of infection, no sepsis No indication for additional treatment or workup at this time Insulin dependent type 2 diabetes Sliding-scale insulin, Lantus Diabetic diet HTN Continue amlodipine, atenolol, losartan Peripheral neuropathy Gabapentin COPD Not in acute exacerbation Continue home inhalers Nicotine dependence Currently smoking up to a pack daily NRT Smoking cessation advised Full Code Attending:?Dr. Barnett DVT Prophylaxis: Lovenox Patient will be admitted to the hospital under observation for treatment and further evaluation of right upper extremity weakness, blurriness, and headache concerning for TIA versus CVA. Patient will require close cardiac monitoring, additional imaging including MRI of head/brain, and specialist consultation with Neurology. Quality Stroke Does the patient have a stroke diagnosis?: No Reason for No Anti-thrombotic by Day Two: Contraindicated (Pt back to baseline, outside of tNK therapeutic window) VTE Prior VTE?: No VTE Risk Level:: Medical - moderate - high VTE Device Contraindication: Treatment Not Indicated VTE Drug Contraindication: N/A - Med Ordered
[2023-12-27 21:21] VITALS: BP 137/51; PULSE 67; RESP 17; TEMP 36.9; O2SAT 94
[2023-12-27 21:28] LABS: Cholesterol 150 mg/dL (<200); HDL Cholesterol 38 mg/dL (>40); LDL Cholesterol Calculated 80 mg/dL (<100); Triglycerides 161 mg/dL (<150)
[2023-12-27] MEDS: Enoxaparin Sodium 40 MG/0.4 ML SYRINGE SUBCUT (21:43)
--- NOTE | 2023-12-27 22:39 | PC.NURSE ---
family at bedside, pt waiting on bed upstairs. No acute distress noted
[2023-12-28] VITALS: BP 136/53; PULSE 69; RESP 18; TEMP 36.8; O2SAT 96
--- NOTE | 2023-12-28 00:28 | MHC.EDTECH ---
This tech took over care of patient at 2300,rounds and vitals completed,urine sample obtained and sent to lab,daughter at bedside and call sauer in reach
[2023-12-28] MEDS: Ibuprofen 400 MG TABLET PO (00:36)
[2023-12-28 00:39] LABS: Appearance Urine Cloudy; Color Urine Yellow; Glucose Urine UA Negative (Negative); Leukocyte Esterase Urine Small (1+) (Negative); Nitrite Urine Negative (Negative); UMIC TRIGGER UACC YES; Urine Blood Negative (Negative); Urine Ketones Negative (Negative); Urine Protein Trace mg/dL (Neg-Trace)
[2023-12-28 00:44] LABS: Bacteria Urine 4+ (None Seen); Hyaline Casts Urine 0-2 /LPF (0-2); RBC Urine 0-2 /HPF (0-2); Squamous Epithelial Cell Urine 0-2 /HPF (0-2); UACC Culture Trigger YES
--- NOTE | 2023-12-28 00:45 | MHC.EDTECH ---
POC taken and is 135,Summer KENNEDY aware
[2023-12-28 00:52] LABS: Glucose, Whole Blood 135 mg/dL (60-115)
[2023-12-28] MEDS: Gabapentin 400 MG CAPSULE 800 MG PO ×2 (02:15→08:07)
[2023-12-28] MEDS: Insulin Glargine,Hum.rec.anlog 100 UNIT/ML 10 ML VIAL 10 UNIT SUBCUT (02:31)
--- NOTE | 2023-12-28 02:51 | PC.NURSE ---
pt denies any weakness or numbness in right arm. Pt A&OX3. Informed pt, she was getting lantus insulin, 10 units, pt states, she takes 60units at night and she uses a pen, gives it to herself, in her stomach
[2023-12-28 03:26] VITALS: BP 137/68; PULSE 65; RESP 18; TEMP 37; O2SAT 96
[2023-12-28 03:27] VITALS: BMI 29.1
[2023-12-28 07:41] LABS: Glucose, Whole Blood 174 mg/dL (60-115)
[2023-12-28 07:50] VITALS: BP 118/53; PULSE 64; RESP 18; TEMP 36.9; O2SAT 96
[2023-12-28] MEDS: atenoloL 25 MG TABLET PO (08:06)
[2023-12-28] MEDS: Losartan Potassium 50 MG TABLET 100 MG PO (08:06)
[2023-12-28] MEDS: Nicotine 21 MG PATCH.TD24 TRANSDERMA (08:08)
[2023-12-28] MEDS: Insulin Lispro 100 UNIT/ML 3 ML VIAL SUBCUT ×2 (08:12→11:29)
[2023-12-28] MEDS: 0.9 % Sodium Chloride Flush 3 ML SYRINGE IVFLUSH (08:17)
--- NOTE | 2023-12-28 09:56 | P.CNNE_ITS ---
History of Present Illness Data of Consult Service Date: 12/28/23 Primary Care Provider: Juan R Bey MD HPI Reason for consult: Right upper extremity weakness 68 years old woman with underlying history of severe migraine came to hospital with 2-3 days history of intermittent right hand and arm weakness. She was also having a headache. She said that at some point she could not use her right hand. There was no associated confusion. She also complain of left-sided chest pain shortness of breath. There was no history of any recent trauma. She was complaining of tingling and numbness in her right hand, and fingers. Review of Systems 2 Review of Systems: No recent trauma. FORMERLY [facility] Past Medical History Medical History CVA (cerebral vascular accident) Osteopenia Screening examination for infectious disease Long-term use of immunosuppressant medication Seronegative inflammatory arthritis Osteoporosis Insulin dependent type 2 diabetes mellitus Elevated C-reactive protein Elevated sed rate Myalgia, upper arm Polymyalgia rheumatica syndrome Knee instability Back pain at L4-L5 level Knee pain, right Knee pain, left UTI (urinary tract infection) Proteinuria Hyperlipidemia Lumbar spondylosis Fibromyalgia Syncope COPD (chronic obstructive pulmonary disease) Depression Asthma Type 2 diabetes mellitus with hyperglycemia, with long-term current use of insulin Type 2 diabetes mellitus with chronic kidney disease Chronic kidney disease, stage 3 unspecified Type 2 diabetes mellitus with diabetic polyneuropathy Essential hypertension Family History Family History Father No problems noted. Mother Heart disease CVD (cardiovascular disease) Diabetes Surgical History Surgical History Hx of mammogram Hx of colonoscopy Hx of oral surgery Hx of tubal ligation Social History Social History Household Members: Family Housing: Apartment Do you presently have visiting nurse or other home services: No Alcohol intake: never Patient Tobacco Use Status: Current everyday Tobacco user Tobacco use type: Cigarette Cigarette Packs Per Day: 0.5 Cigarettes Per Day: 10.0 Smoked in Last 30 Days: Yes Use of substances other than those prescribed or required for medical reasons: No Currently Displaying Signs/Symptoms of Drug Intoxication Withdrawal: No Have you been hit, kicked, punched, or otherwise hurt by someone within the past year? If so, by whom?: No Do you feel safe in your current relationship?: No Current Relationship Is there a partner from a previous relationship who is making you feel unsafe now?: No Are you made to feel afraid or neglected: No Advance Directives: No Advance Directives Information Provided: No Do you have a plan to hurt others: No Plan Recently lost weight without trying: No Patient : No Meds Allergies Allergy/AdvReac Type Severity Reaction Status Date / Time insulin detemir Allergy Intermediate Rash Verified 12/27/23 17:34 penicillin V Allergy Intermediate Rash Verified 12/27/23 17:34 acetaminophen [From Tylenol] Allergy Mild ITCH,RASH Verified 12/27/23 17:34 iodine [Iodine] Allergy Mild HIVES Verified 12/27/23 17:34 penicillin G [Penicillin G] Allergy Mild RASH Verified 12/27/23 17:34 latex [LATEX] Allergy Unknown RASH Verified 12/27/23 17:34 trimerosal Allergy Intermediate rash Uncoded 09/26/23 10:51 Latex Gloves Allergy Mild Rash Uncoded 09/26/23 10:51 METAL Allergy Mild HIVES Uncoded 09/26/23 10:51 Active Medications: Current Medications Atenolol (Atenolol 25 Mg Tablet) 25 mg PO BID [facility]; Protocol Last Admin: 12/28/23 08:06 Dose: 25 mg Benzonatate (Benzonatate 100 Mg Capsule) 100 mg PO TID PRN PRN Reason: Cough Calcium Carbonate (Calcium Carbonate 750 Mg Tab.Chew) 750 mg PO Q4H PRN PRN Reason: Heartburn Enoxaparin Sodium (Enoxaparin Sodium 40 Mg/0.4 Ml Syringe) 40 mg SUBCUT Q24H [facility] Last Admin: 12/27/23 21:43 Dose: 40 mg Gabapentin (Gabapentin 400 Mg Capsule) 800 mg PO TID [facility] Last Admin: 12/28/23 08:07 Dose: 800 mg Glucose (Glucose Gel 15 Gm Gel..Gram.) 15 gm PO Q15M PRN; Protocol PRN Reason: per Hypoglycemia Standing Ord. Dextrose (D10) 250 mls @ 750 mls/hr IV Q15M PRN; Protocol PRN Reason: per Hypoglycemia Standing Ord. Ibuprofen (Ibuprofen 400 Mg Tablet) 400 mg PO Q4H PRN PRN Reason: Pain, Mild (Pain Scale 1-3) Last Admin: 12/28/23 00:36 Dose: 400 mg Insulin Human Lispro (Insulin Lispro 100 Unit/Ml 3 Ml Vial) 0 unit SUBCUT QIDACHS [facility]; Protocol Last Admin: 12/28/23 08:12 Dose: 2 unit Losartan Potassium (Losartan Potassium 50 Mg Tablet) 100 mg PO DAILY [facility]; Protocol Last Admin: 12/28/23 08:06 Dose: 100 mg Magnesium Hydroxide (Milk Of Magnesia 30 Ml Oral.Susp) 30 ml PO DAILY PRN PRN Reason: Constipation Melatonin (Melatonin 3 Mg Tablet) 6 mg PO BEDTIME PRN PRN Reason: Insomnia Nicotine (Nicotine 21 Mg Patch.Td24) 21 mg TRANSDERMA DAILY [facility] Last Admin: 12/28/23 08:08 Dose: 21 mg Ondansetron HCl (Ondansetron Hcl 4 Mg/2 Ml Vial) 4 mg IVPUSH Q8H PRN PRN Reason: Nausea and Vomiting Sodium Chloride (0.9 % Sodium Chloride Flush 3 Ml Syringe) 3 ml IVFLUSH QSHIFT [facility] Last Admin: 12/28/23 08:17 Dose: 3 ml Home Medications ?Medication ?Instructions ?Recorded ?Confirmed ?Last Taken ?Type albuterol sulfate 90 mcg/actuation 2 puff inhalation Q6H PRN Wheezing 04/18/20 09/18/22 Unknown History aerosol inhaler aspirin 81 mg tablet,delayed 81 mg PO DAILY 04/18/20 09/18/22 02/25/22 History release atenolol 25 mg tablet 12.5 mg PO BID 04/18/20 09/18/22 03/05/22 History fluticasone 500 mcg-salmeterol 50 1 inh inhalation BID 04/18/20 09/18/22 Unknown History mcg/dose blistr powdr for inhalation (Advair Diskus) gabapentin 800 mg tablet 800 mg PO TID 04/18/20 09/18/22 03/05/22 History losartan 100 mg tablet 100 mg PO DAILY 04/18/20 09/18/22 03/05/22 History montelukast 10 mg tablet 10 mg PO BEDTIME 04/18/20 09/18/22 Unknown History (Singulair) insulin syringe-needle U-100 1 mL #10 ea 05/29/20 09/18/22 Unknown History 31 gauge x 15/64 zolpidem 10 mg tablet 10 mg PO BEDTIME PRN Pain 05/29/20 09/18/22 Unknown History dulaglutide 4.5 mg/0.5 mL 4.5 mg subcut QWEEK 01/21/23 Unknown History subcutaneous pen injector (Trulicity) umeclidinium 62.5 mcg/actuation 1 inh inhalation DAILY 01/21/23 Unknown History blister powder for inhalation (Incruse Ellipta) amlodipine 5 mg tablet 5 mg PO BEDTIME 12/28/23 Unknown History Physical Exam 2 Vital Signs: Vital Signs: Last Vital Signs Temp 98.4 F 12/28/23 07:50 Pulse 64 12/28/23 07:50 Resp 18 12/28/23 07:50 BP 118/53 L 12/28/23 07:50 Pulse Ox 96 12/28/23 07:50 O2 Del Method Room Air 12/28/23 07:50 BMI result Body Mass Index 29.1 Neuro: Other: Alert and awake with normal spontaneity of speech fluency comprehension and vague affect. Face is symmetrical. Visual daniel are full. There is no pronator drift. Deep tendon reflexes are 1+ in arms trace to absent in legs with flexor plantars. Speech is normal. Results Labs 12/27/23 17:43 12/27/23 17:43 Labs: Short CBC 12/27/23 Range/Units 17:43 WBC 14.8 H (4.8-10.8) X10*3/uL Hgb 13.3 (12.0-16.0) g/dl Hct 40.3 (37.0-47.0) % Plt Count 338 (160-400) X10*3/uL BMP 12/27/23 17:43 Sodium 140 Potassium 4.8 Chloride 104 Carbon Dioxide 25 BUN 14 Creatinine 0.75 Calcium 9.2 Liver Function 12/27/23 Range/Units 17:43 Total Bilirubin 0.2 (0.0-1.0) mg/dL AST 11 (5-31) U/L ALT 10 (0-31) U/L Alkaline Phosphatase 117 (39-117) U/L Albumin 3.7 (3.5-5.0) g/dL Urine 12/28/23 Range/Units 00:30 Urine Color Yellow Urine Appearance Cloudy Urine pH 6.0 (5.0-9.0) Ur Specific [place] 1.010 (1.005-1.025) Urine Protein Trace (Neg-Trace) mg/dL Urine Glucose (UA) Negative (Negative) mg/dL Head CT did not reveal any significant abnormality. Carotid ultrasound was okay. Previous MRI of brain revealed minimal microvascular disease. Assessment and Plan (1) Right arm weakness: Status: Acute 68 years old woman with intermittent right upper extremity weakness with complain of tingling and numbness. Etiology of this is unclear but seems lower motor neuron more than upper. Outpatient EMG nerve conduction study is recommended. Procedures Date of Service Date of Service: 12/28/23
--- NOTE | 2023-12-28 10:03 | PHA.MEDREC ---
Addendum entered by Marquita Rangel RPh 12/28/23 10:39: reviewed by [facility]. Original Note: Pharmacy Consult ? Medication Reconciliation Pharmacy has completed the medication reconciliation. Utilized casualty underwriter services. Pt reports falling with leflunomide and alendronate and no longer takes these medications. Novolog increased to 20 units TIDAC, with Tresiba 60 units bedtime.
[2023-12-28 10:58] VITALS: BP 116/52; PULSE 63; RESP 18; TEMP 36.6; O2SAT 96
[2023-12-28 11:17] LABS: Glucose, Whole Blood 244 mg/dL (60-115)
[2023-12-28] MEDS: Aspirin Enteric Coated 81 MG TABLET.DR PO (11:26)
[2023-12-28] MEDS: oxyBUTYnin chloride ER 5 MG TAB.ER.24 10 MG PO (11:46)
--- NOTE | 2023-12-28 13:50 | PM.DS ---
DS: Providers Provider Date of Service: 12/28/23 Date of admission: 12/27/23 21:10 Date of discharge: 12/28/23 Primary care physician: Juan R Bey MD Consults: 12/27/23 21:13 Consult to Neurology Routine Consulting Provider: [facility] Reason for consultation: Intermittent RUE weakness x3 days, ?TIA DS: Diagnosis Discharge Diagnosis (1) Right arm weakness: Status: Acute (2) Thyroid nodule: Status: Acute DS: Summary Hospital Course Hospital Course: Admission note HPI Pt is a 68-year-old female with a PMH significant for HTN, HLD, CVAs in 2008,?TIA, COPD, insulin-dependent type 2 diabetes, fibromyalgia, and peripheral neuropathy who presents to the ED with?intermittent right arm weakness x3 days. Patient reports for the past 3 days she has had intermittent loss of function of her right upper extremity where she has suddenly no longer able to move her arm or grasp onto objects. It is unclear how many episodes she has had, but each episode usually lasts 5-10 minutes before resolving. Family is at bedside who state patient was also noted to have difficulty speaking during at least 1 of these episodes. Patient reports she does not like hospitals and refused to be brought to the ED when symptoms began. This morning however, patient began to have severe neck pain that radiated up the back of her head and also experienced blurry vision which then prompted her visit to the hospital for further evaluation. Also has been experiencing increased shortness a breath and chest tightness. Complains of worsening chronic lower extremity weakness especially in her right leg. Patient at baseline has difficulty ambulating, uses a seated walker but with assistance. Chronic numbness and tingling in feet from peripheral neuropathy at baseline. Patient is an active smoker of around 1 pack a day. In the ED pt was hypertensive up to 147/53, vitals otherwise WNL. Labs were significant for leukocytosis of 14.8, otherwise grossly unremarkable and baseline for patient. Stable H& H. No significant electrolyte abnormalities. Renal and hepatic function WNL. Troponin negative. CT?of head showed no acute intracranial abnormality, including acute intracranial hemorrhage, mass effect, hydrocephalus, or large territorial infarction. EKG demonstrated sinus rhythm without evidence of significant ST elevations or depressions. Pt will be admitted to the hospital under observation for further evaluation of intermittent right upper extremity weakness with blurriness and headache concerning for TIA versus CVA. Hospital course The patient was admitted for observation as the weakness improved back to normal. neuro checks done with no reported aphasia or speech problem. she continued to complaing of headache which improved with Ibuprofen. MRI of brain was negative for acute stroke. Seen by neurologist dr Cobb who thinks the etiology is unclear but seems lower motor neuron more than upper. Plan for Outpatient EMG nerve conduction study. Arterial carotid US showed Incidentally noted right nodule isoechoic to the thyroid measuring 3.1x 2.8 x 3.0 cm. Will need further work up as outpatient and monitoring by PCP. Discharge plan Stay well hydrated Quit smoking, use nicotine patches to help you quit To follow with dr Cobb office for further work up To follow with PCP for further work up for large thyroid nodule Time Attestation Discharge Coordination Time (in mins): 26 Quality: Safe Use of Opioids Does Pt have an Active Cancer Diagnosis on the Problem List?: No Quality: Stroke Does the patient have a stroke diagnosis?: No Physical Exam Vital Signs: Vital Signs: Last Vital Signs Temp 97.9 F 12/28/23 10:58 Pulse 63 12/28/23 10:58 Resp 18 12/28/23 10:58 BP 116/52 L 12/28/23 10:58 Pulse Ox 96 12/28/23 10:58 O2 Del Method Room Air 12/28/23 10:58 BMI result Body Mass Index 29.1 Const: Other: Constitutional : Awake, interactive, not in distress Neck : Normal inspection, Supple Cardiovascular : RRR, no JVP, no lower extremity edema Respiratory : good bilateral air entry, no crackles, wheezes or rhonchi Gastrointestinal: soft, lax, Normal bowel sounds, Non tender Skin : Warm, Dry Neurological : Alert & oriented x3, No focal deficit; mild restriction of movement from arthritis, CN 2-12 within normal DS: Data Data Completed and Pending Labs on day of discharge: Laboratory Results - last 24 hr 12/27/23 12/28/23 12/28/23 17:43 00:30 00:44 WBC 14.8 H RBC 4.42 Hgb 13.3 Hct 40.3 MCV 91.2 MCH 30.1 MCHC 33.0 RDW 13.5 Plt Count 338 MPV 9.9 Immature Gran % (Auto) 0.5 H Neut % (Auto) 71.0 Lymph % (Auto) 21.1 [place] % (Auto) 5.1 Eos % (Auto) 1.6 Baso % (Auto) 0.7 Lymph # (Auto) 3.1 [place] # (Auto) 0.8 Eos # (Auto) 0.2 Baso # (Auto) 0.1 Abs Immat Gran (auto) 0.08 H Absolute Neuts (auto) 10.5 H Absolute Nucleated RBC 0.000 Nucleated RBC % (auto) 0.0 Sodium 140 Potassium 4.8 Chloride 104 Carbon Dioxide 25 Anion Gap 16 BUN 14 Creatinine 0.75 Estim Creat Clear Calc 76.7 Estimated GFR > 60 POC Glucose 135 H Random Glucose 187 H Calcium 9.2 Magnesium 1.7 Total Bilirubin 0.2 AST 11 ALT 10 Alkaline Phosphatase 117 Troponin I High Sens < 2.7 Total Protein 7.4 Albumin 3.7 Triglycerides 161 H Cholesterol 150 LDL Cholesterol, Calc 80 HDL Cholesterol 38 L Urine Color Yellow Urine Appearance Cloudy Urine pH 6.0 Ur Specific [place] 1.010 Urine Protein Trace Urine Glucose (UA) Negative Urine Ketones Negative Urine Blood Negative Urine Nitrite Negative Ur Leukocyte Esterase Small (1+) H Urine RBC 0-2 Urine WBC 6-10 H Ur Squamous Epith Cells 0-2 Urine Bacteria 4+ Hyaline Casts 0-2 Influenza Type A (PCR) NEGATIVE Influenza Type B (PCR) NEGATIVE RSV RNA Qual (PCR) NEGATIVE SARS-CoV-2 RNA (RT-PCR) NEGATIVE 12/28/23 12/28/23 07:37 11:12 WBC RBC Hgb Hct MCV MCH MCHC RDW Plt Count MPV Immature Gran % (Auto) Neut % (Auto) Lymph % (Auto) [place] % (Auto) Eos % (Auto) Baso % (Auto) Lymph # (Auto) [place] # (Auto) Eos # (Auto) Baso # (Auto) Abs Immat Gran (auto) Absolute Neuts (auto) Absolute Nucleated RBC Nucleated RBC % (auto) Sodium Potassium Chloride Carbon Dioxide Anion Gap BUN Creatinine Estim Creat Clear Calc Estimated GFR POC Glucose 174 H 244 H Random Glucose Calcium Magnesium Total Bilirubin AST ALT Alkaline Phosphatase Troponin I High Sens Total Protein Albumin Triglycerides Cholesterol LDL Cholesterol, Calc HDL Cholesterol Urine Color Urine Appearance Urine pH Ur Specific [place] Urine Protein Urine Glucose (UA) Urine Ketones Urine Blood Urine Nitrite Ur Leukocyte Esterase Urine RBC Urine WBC Ur Squamous Epith Cells Urine Bacteria Hyaline Casts Influenza Type A (PCR) Influenza Type B (PCR) RSV RNA Qual (PCR) SARS-CoV-2 RNA (RT-PCR) Imaging MRI - head: Radiologist's impression: ITS Impressions Head CT 12/27/23 17:41 IMPRESSION: No acute intracranial abnormality. Specifically, no CT evidence of acute intracranial hemorrhage, significant mass effect, hydrocephalus, or large territorial infarction. Electronically signed by: Lula Pickens MD 12/27/2023 06:02 PM EDT RP Carotid Doppler Study 12/27/23 21:50 IMPRESSION: 1. RIGHT: Minimal, non-hemodynamically significant stenosis of the proximal right internal carotid artery corresponding to a 0-49% stenosis by velocity criteria. 2. LEFT: Minimal, non-hemodynamically significant stenosis of the proximal left internal carotid artery corresponding to a 0-49% stenosis by velocity criteria. 3. Right thyroid nodule measuring 3.1 cm. Recommend further attenuation with nonemergent thyroid ultrasound Electronically signed by: Americo Morgan DO 12/28/2023 12:12 AM EDT RP Brain MRI 12/28/23 09:58 IMPRESSION: 1. No acute intracranial findings. 2. Since October 07, 2007, new mild global cerebral volume loss and minimal chronic microangiopathy. Electronically signed by: Lula Pickens MD 12/28/2023 11:28 AM EDT RP Discharge Plan Discharge Anticipated Discharge Date/Time: 12/28/23 13:47 Patient Disposition: Home, Self-Care Discharge Diagnosis: Right arm weakness Referrals: Juan R Bey MD [Primary Care Provider] - 1 Week Discharge Medications: New nicotine 21 mg/24 hr Patch 24 Hour 21 mg transdermal DAILY Qty: 30 0RF Continued Tresiba FlexTouch U-200 200 unit/mL (3 mL) insulin pen 60 unit subcut BEDTIME 30 Days Qty: 9 11RF (DME) lancets [FreeStyle Lancets] 28 gauge misc See Rx Instructions .ROUTE .MEDSUPPLY Qty: 400 10RF Rx Instructions: four times a day (DME) FreeStyle Lite Strips Strip See Rx Instructions .ROUTE .MEDSUPPLY Qty: 400 10RF Rx Instructions: four times a day atorvastatin 40 mg tablet 40 mg PO BEDTIME Qty: 30 2RF tramadol 50 mg tablet 50 mg PO TID PRN (Reason: pain) Qty: 90 3RF amlodipine 5 mg tablet 5 mg PO BEDTIME insulin aspart U-100 [Novolog FlexPen U-100 Insulin] 100 unit/mL (3 mL) insulin pen 20 unit subcut TIDAC Patient Comments: 7 units this am (DME) blood-glucose meter [FreeStyle Lite Meter] Kit See Rx Instructions .ROUTE .MEDSUPPLY Qty: 1 0RF Rx Instructions: As directed albuterol sulfate 90 mcg/actuation HFA aerosol inhaler 2 puff inhalation Q6H PRN (Reason: Wheezing) fluticasone propion-salmeterol [Advair Diskus] 500-50 mcg/dose blister with device 1 inh inhalation BID gabapentin 800 mg tablet 800 mg PO TID losartan 100 mg tablet 100 mg PO DAILY aspirin 81 mg tablet,delayed release (DR/EC) 81 mg PO DAILY montelukast [Singulair] 10 mg tablet 10 mg PO BEDTIME atenolol 25 mg tablet 12.5 mg PO BID (DME) insulin syringe-needle U-100 1 mL 31 gauge x 15/64 syringe See Rx Instructions .ROUTE BID Qty: 10 Rx Instructions: As directed zolpidem 10 mg tablet 10 mg PO BEDTIME PRN (Reason: Insomnia) (DME) pen needle, diabetic [BD Ultra-Fine Janene Pen Needle] 32 gauge x 5/32 needle See Rx Instructions .ROUTE .MEDSUPPLY Qty: 150 11RF Rx Instructions: As directed four times a day docusate sodium 100 mg capsule 100 mg PO BEDTIME Qty: 90 3RF Incruse Ellipta 62.5 mcg/actuation blister with device 1 inh inhalation DAILY Trulicity 4.5 mg/0.5 mL pen injector 4.5 mg subcut MO@0900 (DME) Cane See Rx Instructions .Route .MEDSUPPLY Qty: 1 0RF Rx Instructions: As directed oxybutynin chloride 10 mg tablet extended release 24hr 10 mg PO DAILY Qty: 90 3RF Discharge Orders: Discharge Order (Routine); Ordered 12/28/23 Ordered By: Sanjay Pang Diet: Diabetic diet Activity on Discharge: As tolerated Stand Alone Forms: Patient Portal Discharge page Print Language: Azerbaijani Care Plan Goals: Stay well hydrated Quit smoking, use nicotine patches to help you quit To follow with dr Cobb office for further work up To follow with PCP for further work up for large thyroid nodule Health Concerns: Read below Plan of Treatment: Read below Assessment: Read below
== END 2023-12-28 14:30 | disposition home or self-care (01) ==
LOC: HO.ED 20:55 → HO.EDOVER 21:20 → HO.IMC 12-28 00:51
PROVIDERS: Internal Medicine; Physician Assistant Medical; Admitting Provider Student in an Organized Health Care Education/Training Program; Emergency Provider Emergency Medicine; PCP Internal Medicine; Visit Provider Student in an Organized Health Care Education/Training Program
DX: R53.1 Weakness (principal); E04.1 Nontoxic single thyroid nodule; R51.9 Headache, unspecified; D72.829 Elevated white blood cell count, unspecified; H53.8 Other visual disturbances; I10 Essential (primary) hypertension; J44.9 Chronic obstructive pulmonary disease, unspecified; E11.9 Type 2 diabetes mellitus without complications; R06.02 Shortness of breath; G62.9 Polyneuropathy, unspecified; F17.200 Nicotine dependence, unspecified, uncomplicated; Z79.4 Long term (current) use of insulin; Z86.73 Personal history of transient ischemic attack (TIA), and cerebral infarction without residual deficits; Z79.899 Other long term (current) drug therapy; Z03.818 Encounter for observation for suspected exposure to other biological agents ruled out
CPT/HCPCS: 0241U; 36415; 70450; 70551; 80053; 80061; 81001; 82947; 83735; 84484; 85025; 87086; 87088; 87186; 93005; 93880; 96372; 99222; 99285; J1650

== ENCOUNTER → 2023-12-27 21:10 | Outpatient (BNV) | payer OTHER, SELFPAY | PROVIDERS: Admitting Provider Student in an Organized Health Care Education/Training Program; Emergency Provider Emergency Medicine; PCP Internal Medicine; Visit Provider Psychiatry & Neurology Neurology | DX: R29.898 Other symptoms and signs involving the musculoskeletal system (principal) | CPT/HCPCS: 99222 ==

== ENCOUNTER → 2023-12-27 21:10 | Outpatient (BNV) | payer OTHER, SELFPAY | PROVIDERS: Admitting Provider Student in an Organized Health Care Education/Training Program; Emergency Provider Emergency Medicine; PCP Internal Medicine; Visit Provider Student in an Organized Health Care Education/Training Program | DX: R29.898 Other symptoms and signs involving the musculoskeletal system (principal); R51.9 Headache, unspecified; D72.829 Elevated white blood cell count, unspecified | CPT/HCPCS: 99222; 99238 ==

== ENCOUNTER 2024-01-01 10:39 | Outpatient (REF) | payer OTHER, SELFPAY ==
--- NOTE | ~2024-01-01 | MM_ITS ---
EXAMINATION: MM SCREENING DIGITAL BREAST TOMOSYNTHESIS, BILATERAL CLINICAL INFORMATION: Screening. Asymptomatic. COMPARISON: Mammography: Comparison is made with available priors TECHNIQUE: Digital breast mammography with tomosynthesis is performed in both the craniocaudal and mediolateral oblique views along with computer-aided detection (CAD). FINDINGS: There are scattered areas of fibroglandular density (ACR BI-RADS breast composition Category b). Left: Asymmetry retroareolar region anterior depth on CC view. There are no significant abnormal calcifications, or other abnormalities. Right: Developing Focal asymmetry in the upper outer quadrant posterior depth with associated architectural distortion. No suspicious calcifications or other abnormal findings. MM/MM tomosynthesis screening BI IMPRESSION: Additional imaging is recommended ASSESSMENT: BI-RADS BI-RADS 0 - Incomplete: Needs additional Imaging. RECOMMENDATION: 1. Additional views of the bilateral breasts 2. Targeted ultrasound if warranted after review of the additional views. 3. Radiology department staff will contact the patient for additional imaging. Additional Imaging required This examination should not preclude the clinical evaluation of a suspicious palpable abnormality. This patient's information was entered into a reminder system with a target due date for their next mammogram. Electronically signed by: Gabriella Campuzano DO 01/13/2024 09:25 AM EDT
== END 2024-01-01 10:40 | disposition home or self-care (01) ==
LOC: HO.MAMMO 10:39
PROVIDERS: PCP Internal Medicine; Visit Provider Internal Medicine
DX: Z12.31 Encounter for screening mammogram for malignant neoplasm of breast (principal)
CPT/HCPCS: 77063; 77067

== ENCOUNTER → 2024-01-01 11:15 | Outpatient (BNV) | payer OTHER, SELFPAY | PROVIDERS: PCP Internal Medicine; Visit Provider Internal Medicine | DX: Z12.31 Encounter for screening mammogram for malignant neoplasm of breast (principal) | CPT/HCPCS: 77063; 77067 ==

== ENCOUNTER 2024-01-09 12:56 | Emergency (ER) | payer OTHER, SELFPAY ==
[2024-01-09 13:07] VITALS: BP 180/67; PULSE 78; O2SAT 98
--- NOTE | 2024-01-09 13:09 | ED_ITS ---
HPI - Extremity Problem General Chief complaint: Neuro Symptoms/Deficit Stated complaint: stroke Time Seen by Provider: 01/09/24 13:05 Source: patient, EMS and old records reviewed Mode of arrival: EMS Limitations: no limitations History of Present Illness ED Provider: SHITAL TREVIZO Narrative: 68 yo female with PMH Of HTN, HLD, CVAs in 2008, TIA, COPD, IDDM 2, fibromyalgia, peripheral neuropathy, just admitted here and had work up 12/27 with normal MRI, minimal stenosis of both carotids felt this to be lower motor neuro issue she has chronic gait issues and pain with seated walker use who presents again today with c/o R arm weakness and pain. No new changes. She states when she talked to RN over phone today who was checking on her and discussed her symptoms the RN told he she had to go to hospital to get checked out for stroke when she didn't want to the RN called her family and told her patient was having stroke. After much discussion reviewed all work up and the patient even notes she has hx of carpal tunnel in the past and she has to follow up. NO new changes of her symptoms just worsening pain. MD Complaint: extremity pain Onset (ago): month(s) (2+) Pain Consistency: intermittent Location: right and upper extremity Quality: stabbing and aching Radiation: proximal and distal Relieving factors: immobilization Exacerbating factors: range of motion and palpation Associated symptoms: denies other symptoms Context: other (known CT of R hand) Related Data Home Medications ?Medication ?Instructions ?Recorded ?Confirmed albuterol sulfate 90 mcg/actuation 2 puff inhalation Q6H PRN Wheezing 04/18/20 12/28/23 aerosol inhaler aspirin 81 mg tablet,delayed 81 mg PO DAILY 04/18/20 12/28/23 release atenolol 25 mg tablet 12.5 mg PO BID 04/18/20 12/28/23 fluticasone 500 mcg-salmeterol 50 1 inh inhalation BID 04/18/20 12/28/23 mcg/dose blistr powdr for inhalation (Advair Diskus) gabapentin 800 mg tablet 800 mg PO TID 04/18/20 12/28/23 losartan 100 mg tablet 100 mg PO DAILY 04/18/20 12/28/23 montelukast 10 mg tablet 10 mg PO BEDTIME 12/29/20 09/08/24 (Singulair) insulin syringe-needle U-100 1 mL #10 ea 05/29/20 09/18/22 31 gauge x 15/64 zolpidem 10 mg tablet 10 mg PO BEDTIME PRN Insomnia 05/29/20 12/28/23 dulaglutide 4.5 mg/0.5 mL 4.5 mg subcut MO@0900 01/21/23 12/28/23 subcutaneous pen injector (Trulicity) umeclidinium 62.5 mcg/actuation 1 inh inhalation DAILY 01/21/23 12/28/23 blister powder for inhalation (Incruse Ellipta) amlodipine 5 mg tablet 5 mg PO BEDTIME 12/28/23 12/28/23 insulin aspart U-100 100 unit/mL 20 unit subcut TIDAC 12/28/23 12/28/23 (3 mL) subcutaneous pen (Novolog FlexPen U-100 Insulin aspart) Previous Rx's ?Medication ?Instructions ?Recorded blood-glucose meter (FreeStyle #1 ea 04/19/21 Lite Meter kit) pen needle, diabetic 32 gauge x #150 ea 07/26/21 5/32 (BD Ultra-Fine Janene Pen Needle) insulin degludec 200 unit/mL (3 60 unit (0.3 mL) subcut BEDTIME 30 08/01/21 mL) subcutaneous pen ([facility] #9 mL FlexTouch U-200 insulin) blood sugar diagnostic (FreeStyle #400 ea 09/14/21 Lite Strips) lancets 28 gauge (FreeStyle #400 ea 09/14/21 Lancets) atorvastatin 40 mg tablet 40 mg PO BEDTIME #30 tabs 01/22/22 docusate sodium 100 mg capsule 100 mg PO BEDTIME #90 caps 01/29/22 Cane #1 ea 01/22/23 oxybutynin chloride 10 mg 10 mg PO DAILY #90 tabs 03/20/23 tablet,extended release 24 hr tramadol 50 mg tablet 50 mg PO TID PRN pain #90 tabs 12/24/23 nicotine 21 mg/24 hr daily 21 mg transdermal DAILY #30 ea 12/28/23 transdermal patch lidocaine 5 % topical cream 1 appl topical BID PRN pain #15 01/09/24 grams Allergies Allergy/AdvReac Type Severity Reaction Status Date / Time insulin detemir Allergy Intermediate Rash Verified 01/09/24 13:14 penicillin V Allergy Intermediate Rash Verified 01/09/24 13:14 acetaminophen [From Tylenol] Allergy Mild ITCH,RASH Verified 01/09/24 13:14 iodine [Iodine] Allergy Mild HIVES Verified 01/09/24 13:14 penicillin G [Penicillin G] Allergy Mild RASH Verified 01/09/24 13:14 latex [LATEX] Allergy Unknown RASH Verified 01/09/24 13:14 trimerosal Allergy Intermediate rash Uncoded 09/26/23 10:51 Latex Gloves Allergy Mild Rash Uncoded 09/26/23 10:51 METAL Allergy Mild HIVES Uncoded 09/26/23 10:51 Review of Systems Review of Systems: Constitutional : No Fever, No Chills ENT/Mouth : No Ear Pain, No Hoarseness, No sore throat Eyes: No Eye Pain, No Swelling, No Redness, No Foreign Body Cardiovascular : No Chest Pain, No SOB Respiratory : No Cough, No Dyspnea Gastrointestinal : No Nausea, No Vomiting, No Diarrhea, No abdominal Pain Genitourinary : No Dysuria, No Hematuria Musculoskeletal : positive joint pain, No Myalgias, No Joint Swelling Skin : No Skin lacerations, No rash Neuro : No Weakness, No Numbness, No Loss of Consciousness, No Dizziness, No Headache All other systems reviewed and are negative PMFSH Past Medical History Attestation statement: The following information was validated with the patient. Source: old records reviewed Medical History CVA (cerebral vascular accident) Osteopenia Screening examination for infectious disease Long-term use of immunosuppressant medication Seronegative inflammatory arthritis Osteoporosis Insulin dependent type 2 diabetes mellitus Elevated C-reactive protein Elevated sed rate Myalgia, upper arm Polymyalgia rheumatica syndrome Knee instability Back pain at L4-L5 level Knee pain, right Knee pain, left UTI (urinary tract infection) Proteinuria Hyperlipidemia Lumbar spondylosis Fibromyalgia Syncope COPD (chronic obstructive pulmonary disease) Depression Asthma Type 2 diabetes mellitus with hyperglycemia, with long-term current use of insulin Type 2 diabetes mellitus with chronic kidney disease Chronic kidney disease, stage 3 unspecified Type 2 diabetes mellitus with diabetic polyneuropathy Essential hypertension Surgical History Hx of mammogram Hx of colonoscopy Hx of oral surgery Hx of tubal ligation Family History Family History Father No problems noted. Mother Heart disease CVD (cardiovascular disease) Diabetes Social History Social History Household Members: Family Housing: Apartment Do you presently have visiting nurse or other home services: No Alcohol intake: never Patient Tobacco Use Status: Current everyday Tobacco user Tobacco use type: Cigarette Cigarette Packs Per Day: 0.5 Cigarettes Per Day: 10.0 Advance Directives: No Advance Directives Information Provided: Yes Do you have a plan to hurt others: No Plan Physical Exam Vital Signs: Vital Signs: Last Vital Signs Temp 98.2 F 01/09/24 13:10 Pulse 75 01/09/24 13:10 Resp 16 01/09/24 13:10 BP 148/58 H 01/09/24 13:10 Pulse Ox 96 01/09/24 13:10 O2 Del Method Room Air 01/09/24 13:10 BMI result Body Mass Index 29.0 Appearance: Alert. Oriented X3. No acute distress. Eyes: Pupils equal, round and reactive to light. ENT: Pharynx normal. Neck: Normal inspection. Neck supple. CVS: Normal heart rate and rhythm. Pulses normal. Respiratory: No respiratory distress. Breath sounds normal. Abdomen: Soft and non-tender. Skin: Skin warm and dry. Normal skin color. Normal skin turgor. Extremities: No lower extremity edema. No calf ttp Neuro: Oriented X 3. No motor deficit. No sensory deficit. chronic bilateral leg weakness poor effort, SILT intact, sig pain in R wrist and arm with ROM and palpation pulses intact. she is freely using her R arm to talk and touch the phone Medical Decision Making Medical Decision Making MDM Narrative: 68 yo female with PMH Of HTN, HLD, CVAs in 2009, TIA, COPD, IDDM 2, fibromyalgia, peripheral neuropathyhere with chronic R hand and wrist pain now here with same complaint she is moving the arm she has no new complaints or deficits it seems lower such as carpal tunnel. At this time I am going to talk to her about her recent inpatient work up as well as start her on topical lidocaine therapy and place in splint. She has neuro appointmenton 01/14 Differential Diagnosis Differential Diagnoses: The differential diagnosis associated with the presentation includes neuropathy, doubt stroke just had extensive work up for same symptoms for stroke - MRI, carotids, recommended to have EMG - she is aware feels comfortable to have splint and pain control at home Admission/Observation Consideration of admission/observation: Escalation of care including admission/observation considered no further workup needed at this time Independent Interpretation I performed an independent interpretation of an: EKG Interpretation: Rate: 82 Rhythm:NSR [place]: normal Normal P waves. Normal GLENNY. Normal QRS complex. ST T wave : nonspecific ST T wave changes I and aVL, no DONNA qTC: 462 prior studies: no acute ischemia The study has been interpreted contemporaneously by me. . Independent Historian Clinical information obtained from an independent historian. History obtained from or confirmed by: EMS and Other (family) External Record Review External record reviewed: Inpatient record Discharge Plan Discharge Clinical Impression: Arm pain, right, Neuropathy Patient Disposition: Home, Self-Care Instructions: Peripheral Neuropathy (ED), Arm Pain (ED) Additional Instructions: wear splint for comfort follow up with neurology as planned return for any further concerns or issues Prescriptions: New lidocaine 5 % cream 1 appl topical BID PRN (Reason: pain) Qty: 15 0RF No Action Tresiba FlexTouch U-200 200 unit/mL (3 mL) insulin pen 60 unit subcut BEDTIME 30 Days Qty: 9 11RF (DME) lancets [FreeStyle Lancets] 28 gauge misc See Rx Instructions .ROUTE .MEDSUPPLY Qty: 400 10RF Rx Instructions: four times a day (DME) FreeStyle Lite Strips Strip See Rx Instructions .ROUTE .MEDSUPPLY Qty: 400 10RF Rx Instructions: four times a day atorvastatin 40 mg tablet 40 mg PO BEDTIME Qty: 30 2RF tramadol 50 mg tablet 50 mg PO TID PRN (Reason: pain) Qty: 90 3RF amlodipine 5 mg tablet 5 mg PO BEDTIME insulin aspart U-100 [Novolog FlexPen U-100 Insulin] 100 unit/mL (3 mL) insulin pen 20 unit subcut TIDAC Patient Comments: 7 units this am nicotine 21 mg/24 hr Patch 24 Hour 21 mg transdermal DAILY Qty: 30 0RF (DME) blood-glucose meter [FreeStyle Lite Meter] Kit See Rx Instructions .ROUTE .MEDSUPPLY Qty: 1 0RF Rx Instructions: As directed albuterol sulfate 90 mcg/actuation HFA aerosol inhaler 2 puff inhalation Q6H PRN (Reason: Wheezing) fluticasone propion-salmeterol [Advair Diskus] 500-50 mcg/dose blister with device 1 inh inhalation BID gabapentin 800 mg tablet 800 mg PO TID losartan 100 mg tablet 100 mg PO DAILY aspirin 81 mg tablet,delayed release (DR/EC) 81 mg PO DAILY montelukast [Singulair] 10 mg tablet 10 mg PO BEDTIME atenolol 25 mg tablet 12.5 mg PO BID (DME) insulin syringe-needle U-100 1 mL 31 gauge x 15/64 syringe See Rx Instructions .ROUTE BID Qty: 10 Rx Instructions: As directed zolpidem 10 mg tablet 10 mg PO BEDTIME PRN (Reason: Insomnia) (DME) pen needle, diabetic [BD Ultra-Fine Janene Pen Needle] 32 gauge x 5/32 needle See Rx Instructions .ROUTE .MEDSUPPLY Qty: 150 11RF Rx Instructions: As directed four times a day docusate sodium 100 mg capsule 100 mg PO BEDTIME Qty: 90 3RF Incruse Ellipta 62.5 mcg/actuation blister with device 1 inh inhalation DAILY Trulicity 4.5 mg/0.5 mL pen injector 4.5 mg subcut MO@0900 (DME) Cane See Rx Instructions .Route .MEDSUPPLY Qty: 1 0RF Rx Instructions: As directed oxybutynin chloride 10 mg tablet extended release 24hr 10 mg PO DAILY Qty: 90 3RF Print Language: Frisian
[2024-01-09 13:10] VITALS: BP 148/58; PULSE 75; RESP 16; TEMP 36.8; O2SAT 96; BMI 29.0
--- NOTE | 2024-01-09 13:16 | ECG_ITS ---
Test Reason : STROKE R/O Blood Pressure : / mmHG Vent. Rate : 082 BPM Atrial Rate : 082 BPM P-R Int : 154 ms QRS Dur : 094 ms QT Int : 396 ms P-R-T Axes : 074 045 072 degrees QTc Int : 462 ms Normal sinus rhythm Right atrial enlargement Borderline ECG When compared with ECG of 27-DEC-2023 17:30, T wave inversion no longer evident in Inferior leads Referred By: Alice Andrade Electronically Signed By:SUHAIL HUGHES
[2024-01-09] MEDS: oxyCODONE HCl Immed Release 5 MG TABLET PO (14:03)
[2024-01-09 14:33] VITALS: BP 148/54; PULSE 83; RESP 16; TEMP 36.8; O2SAT 96
== END 2024-01-09 14:34 | disposition home or self-care (01) ==
PROVIDERS: Emergency Provider Emergency Medicine; PCP Internal Medicine
DX: G56.91 Unspecified mononeuropathy of right upper limb (principal); R94.31 Abnormal electrocardiogram [ECG] [EKG]; I10 Essential (primary) hypertension; E11.9 Type 2 diabetes mellitus without complications; M79.601 Pain in right arm; J44.9 Chronic obstructive pulmonary disease, unspecified; F17.210 Nicotine dependence, cigarettes, uncomplicated; Z79.899 Other long term (current) drug therapy; Z79.4 Long term (current) use of insulin; Z86.73 Personal history of transient ischemic attack (TIA), and cerebral infarction without residual deficits
CPT/HCPCS: 93005; 99283; 99285

== ENCOUNTER 2024-01-16 13:58 | Outpatient (REF) | payer OTHER, SELFPAY ==
--- NOTE | ~2024-01-16 | XR_ITS ---
EXAMINATION: XR KNEE, RIGHT CLINICAL INFORMATION: Right knee pain COMPARISON: X-ray of the right knee January 2023 TECHNIQUE: Four views of the right knee. FINDINGS: No fracture or joint effusion. Alignment is anatomic. Joint spaces are maintained. No abnormal soft tissue calcification. XR/XR knee RT 3V IMPRESSION: Normal right knee. Electronically signed by: Abhijit Gerardo MD 01/17/2024 11:43 AM EDT
--- NOTE | ~2024-01-16 | XR_ITS ---
EXAMINATION: XR LUMBOSACRAL SPINE CLINICAL INFORMATION: Low back pain COMPARISON: X-ray lumbosacral spine January 2023 TECHNIQUE: Three views of the lumbosacral spine. FINDINGS: At L2-L3 there are severe degenerative disc changes redemonstrated with marked disc space narrowing and endplate osteophytes with slight retrolisthesis of L2 on L3. Additional multilevel degenerative disc changes with endplate osteophytes throughout the lumbar spine and moderate at the L4-L5 level with disc space narrowing associated. Arterial calcification present of the abdominal aorta. Remaining visualized bones and soft tissues unremarkable. XR/XR lumbar spine 2-3V IMPRESSION: Advanced multilevel spondylosis of lumbar spine unchanged compared with the prior x-ray January 2023. Degenerative changes most pronounced at the L2-L3 level unchanged. Electronically signed by: Abhijit Gerardo MD 01/17/2024 11:47 AM EDT
--- NOTE | ~2024-01-16 | XR_ITS ---
EXAMINATION: XR CERVICAL SPINE CLINICAL INFORMATION: Neck pain COMPARISON: None available. TECHNIQUE: 4 views of the cervical spine including swimmer's lateral. FINDINGS: The exam slightly limited at the C7-T1 level is partially obscured by overlying soft tissues. There is reversal of the usual cervical lordosis but unchanged compared to prior. Multilevel degenerative disc changes manifested by disc space narrowing and endplate osteophytes extending from C4-C5 through C6-C7 unchanged compared to prior. Facets unremarkable. Surrounding bones soft tissues unremarkable. XR/XR cervical spine 3V IMPRESSION: Multilevel spondylosis of the cervical spine without significant change compared with prior. Electronically signed by: Abhijit Gerardo MD 01/17/2024 11:50 AM EDT RP
--- NOTE | ~2024-01-16 | XR_ITS ---
EXAMINATION: XR HIP, RIGHT CLINICAL INFORMATION: Right hip pain COMPARISON: None available. TECHNIQUE: Two views of the right hip. FINDINGS: No fracture. Alignment is anatomic. Hip joint space is maintained. Soft tissues are unremarkable. XR/XR hip RT min 2V IMPRESSION: Normal right hip. Electronically signed by: Abhijit Gerardo MD 01/17/2024 11:47 AM EDT
== END 2024-01-16 13:59 | disposition home or self-care (01) ==
LOC: HO.HHCX 13:58
PROVIDERS: Visit Provider Internal Medicine
DX: M54.50 Low back pain, unspecified (principal); M54.2 Cervicalgia; M25.551 Pain in right hip; M25.561 Pain in right knee
CPT/HCPCS: 72040; 72100; 73502; 73562

== ENCOUNTER 2024-02-03 09:54 | Outpatient (AMB) | payer OTHER, SELFPAY ==
--- NOTE | 2024-02-03 10:00 | A.OFFVIS_ITS ---
Vital Signs 02/03/24 10:12 Height 5 ft 6 in BMI Reason not done Patient refused/unable BP 118/68 Blood Pressure Location Rt brachial Position Sitting Pulse 96 Pulse Source Pulse Oximeter Intake Visit Reasons: Type 2 DM/confirmed Intake Note: Patient presents today to re-establish treatment for Type 2 Diabetes Mellitus: Last Diabetic eye exam was on: DUE Last Podiatry exam was on: Does not see a Mopper Most recent HbA1c: 10.6%, 02/03/2024 Random Glucose- 168 mg/dL, Today [facility] Required: No Accompanied by: Family/Other Allergies insulin detemir Allergy (Intermediate, Verified 02/03/24 10:21) Rash penicillin V Allergy (Intermediate, Verified 02/03/24 10:21) Rash acetaminophen [From Tylenol] Allergy (Mild, Verified 02/03/24 10:21) ITCH,RASH iodine [Iodine] Allergy (Mild, Verified 02/03/24 10:21) HIVES penicillin G [Penicillin G] Allergy (Mild, Verified 02/03/24 10:21) RASH latex [LATEX] Allergy (Unknown, Verified 02/03/24 10:21) RASH trimerosal Allergy (Intermediate, Uncoded 02/03/24 10:21) rash Latex Gloves Allergy (Mild, Uncoded 02/03/24 10:21) Rash METAL Allergy (Mild, Uncoded 02/03/24 10:21) HIVES Medication List - Last Reconciled 02/03/24 by MAYELA Pond albuterol sulfate 90 mcg/actuation 2 puffs inhalation Q6H PRN amlodipine 5 mg PO BEDTIME aspirin 81 mg PO DAILY atenolol 12.5 mg PO BID atorvastatin 40 mg PO BEDTIME blood sugar diagnostic (FreeStyle Lite Strips) four times a day blood-glucose meter (FreeStyle Lite Meter kit) As directed [Cane As directed] docusate sodium 100 mg PO BEDTIME dulaglutide (Trulicity) 4.5 mg subcut MO@0900 fluticasone propion-salmeterol 500-50 mcg/dose (Advair Diskus) 1 inh inhalation BID gabapentin 800 mg PO TID glucose (Dex4 Glucose Quick Dissolve) 16 grams (4 x 4 gram) PO Q15M PRN insulin aspart U-100 (Novolog FlexPen U-100 Insulin aspart) 18 units subcut TIDAC insulin degludec (Tresiba FlexTouch U-200 insulin) 60 units (0.3 mL) subcut BEDTIME 30 days insulin syringe-needle U-100 As directed lancets (FreeStyle Lancets) four times a day lidocaine 5% 1 appl topical BID PRN losartan 100 mg PO DAILY montelukast (Singulair) 10 mg PO BEDTIME nicotine 21 mg transdermal DAILY oxybutynin chloride ER 10 mg PO DAILY pen needle, diabetic (BD Ultra-Fine Janene Pen Needle) As directed four times a day tramadol 50 mg PO TID PRN umeclidinium 62.5 mcg/actuation (Incruse Ellipta) 1 inh inhalation DAILY zolpidem 10 mg PO BEDTIME PRN HPI Comments Details: This is a 69-year-old female with a past medical history of hypertension, type 2 diabetes, depression, fibromyalgia, moderate persistent asthma, tobacco use, obesity, right thyroid nodule, pulmonary nodules, overactive bladder, recurrent UTI and hyperlipidemia presenting for diabetic management. She is accompanied by her son, Ernesto, and her [id number], Kiesha. They are her saw man. The patient was last seen in the endocrinology department on 07/26/2021 by Sadia Kemp. She was diagnosed around 1996 with type 2 diabetes. Denies family history of type 1 diabetes. Hemoglobin A1c 10.6% today from 12.6% 01/15/2024 per PCP note. I reviewed the download from her glucometer. Her average glucose is 160 mg/dL between January 19 and February 02. She was in range 65% of the time. She was hyperglycemic 20% of the time and very hyperglycemic 9% of the time with hypoglycemia 6% of the time. Her highest sugar was 342 mg/dL. Her lowest sugar was 61 mg/dL. She averages 2.5 readings per day. Current regimen: Trulicity 4.5 mg weekly, Tresiba U 200 60 units at bedtime and NovoLog 20 units 3 times a day before meals if BG is over 100. PCP note reads she is off metformin because of worsening renal function. She took glipizide and does not recall why it was discontinued. Says she does not do well on a lot of medications. She says she was on Actos which worked well for her, but she says she stopped getting refills. Compliance issues: She is taking NovoLog up to 20 minutes before she eats. Diet: Breakfast- oatmeal, boiled eggs, egg and cheese sandwich, black coffee Lunch-salad with protein, TV dinner, coffee Dinner-rice, protein salad Snacks/desserts: sometimes cookies She was drinking pepsi but stopped. Drinks small amount of OJ or kiwi strawberry juice daily. Hypoglycemia symptoms: shaky and weak. 0-3 per week. Patient says the trend is for this to occur sometime after meals. Hyperglycemia symptoms: none Eye exam: [facility] - glaucoma Microvascular complications: neuropathy, nephropathy (microalbuminuria per previous notes and CKD stage 3 per problem list) Macrovascular complications: none Hypertension is treated with amlodipine 5 mg, atenolol 25 mg half a tablet twice a day and losartan 100 mg daily. Hyperlipidemia is treated with atorvastatin 40 mg daily. ROS: Constitutional: No fevers or chills or increased fatigue. No unexplained weight loss. Eyes: No blurry vision, double vision or eye pain. Respiratory: No shortness of breath, cough or sputum production. Cardiovascular: No chest pain, chest pressure or chest discomfort. No palpitations Gastrointestinal: No anorexia, nausea, vomiting or diarrhea. No abdominal pain Genitourinary: No dysuria. Patient endorses history of urinary incontinence and UTIs. She has also been evaluated by Urology for episodes of hematuria, and she denies recent episodes of hematuria. Neurologic: +intermittent tingling in her toes of both feet.. Skin: No open wounds. Endocrine: No cold or heat intolerance. No polyuria or polydipsia. Physical exam: Constitutional: Alert, in no distress. Eyes: Pupils are equal, round and reactive to light. Extraocular muscles intact. Neck: Supple, Full range of motion. No lymphadenopathy. No palpable thyroid masses. Respiratory: Clear to auscultation. Cardiovascular: S1 S2 regular. No murmurs. Right foot: Warm and well perfused. No clubbing, cyanosis or edema. DP pulse 3+. Decreased vibratory sensation. Intact sensation to monofilament. No open wounds. Left foot: Warm and well perfused. No clubbing, cyanosis or edema. DP pulse 3+. Decreased vibratory sensation. Intact sensation to monofilament. No open wounds. [facility] Medical History (Updated 02/03/24 @ 11:34 by MAYELA Pond) Type 2 diabetes mellitus with insulin therapy CVA (cerebral vascular accident) Osteopenia Screening examination for infectious disease Long-term use of immunosuppressant medication Seronegative inflammatory arthritis Osteoporosis Insulin dependent type 2 diabetes mellitus Elevated C-reactive protein Elevated sed rate Myalgia, upper arm Polymyalgia rheumatica syndrome Knee instability Back pain at L4-L5 level Knee pain, right Knee pain, left UTI (urinary tract infection) Proteinuria Hyperlipidemia Lumbar spondylosis Fibromyalgia Syncope COPD (chronic obstructive pulmonary disease) Depression Asthma Type 2 diabetes mellitus with hyperglycemia, with long-term current use of insulin Type 2 diabetes mellitus with chronic kidney disease Chronic kidney disease, stage 3 unspecified Type 2 diabetes mellitus with diabetic polyneuropathy Essential hypertension Surgical History Hx of mammogram Hx of colonoscopy Hx of oral surgery Hx of tubal ligation Family History Father No problems noted. Mother Heart disease CVD (cardiovascular disease) Diabetes Social History Household Members: Family Housing: Apartment Do you presently have visiting nurse or other home services: No Alcohol intake: never Patient Tobacco Use Status: Current everyday Tobacco user Tobacco use type: Cigarette Cigarette Packs Per Day: 0.5 Cigarettes Per Day: 10.0 Results AMB Hemoglobin A1c AMB Hemoglobin A1c 10.6 % Last Edit by BALJEET Rincon on 02/03/24 10:2 6 Results Reviewed Results Reviewed: Laboratory Tests 07/24/21 12/27/23 09:32 17:43 Creatinine 0.75 Estimated GFR > 60 Triglycerides 161 H Cholesterol 150 LDL Cholesterol, Calc 80 HDL Cholesterol 38 L Urine Creatinine 123.70 Urine Microalbumin 307.0 Microalb/Creat Ratio 248.1 Assessment & Plan Assessment & Plan (1) Type 2 diabetes mellitus with insulin therapy: Code(s): E11.9 - Type 2 diabetes mellitus without complications; Z79.4 - exterminator (current) use of insulin Category: Medical Plan In summary this is a 69-year-old female with a past medical history of uncontrolled type 2 diabetes with microvascular complications on basal-bolus insulin and Trulicity. Patient is advised to decrease NovoLog to 18 units and administer 5-10 minutes prior to meals. Continue Tresiba 60 units at bedtime Continue Trulicity 4.5 mg weekly. We reviewed SGLT2, however she has a history of recurrent cystitis. Patient says that she does not want to be a 'Guinea pig with medication. She wants to go back on Actos since she tolerated it well, and she says this worked for her. We discussed data that suggested increase in risk of bladder cancer with this medication, but the risk is unclear since patients who are diabetics or smokers have increased risk of bladder cancer due to these conditions. She has already undergone negative workup for bladder cancer with Urology. We also discussed that this medication may increase risk of heart failure. We will check BNP. If this is over 50 I recommend an echocardiogram. Prescribed continuous glucose monitor, freestyle Crystal 3. This is medically necessary as patient reports she does not always feel symptoms of hypoglycemia, and she is on multiple medications including insulin injections 4 times per day. Patient is referred to family living educator. She declined referral to the dietitian. We reviewed treatment of hypo/hyperglycemia. Glucose tablets sent to the pharmacy. Written instructions were provided to the patient. She was instructed to return in 1 month for type 2 diabetes/CGM review. Orders: Orders Microalbumin, Random (w Creat) Today E11.9 - Type 2 diabetes mellitus without complications, Z79.4 - [facility] (current) use of insulin B Type Natriuretic Peptide Today E11.9 - Type 2 diabetes mellitus without complications AMB Hemoglobin A1c Today E11.42 - Type 2 diabetes mellitus with diabetic polyneuropathy, Z79.4 - [facility] (current) use of insulin UA w Microscopic Today E11.9 - Type 2 diabetes mellitus without complications, Z79.4 - [facility] (current) use of insulin Referrals Diabetes Education Referral E11.9 - Type 2 diabetes mellitus without complications, Z79.4 - exterminator (current) use of insulin Medications: New blood-glucose sensor (FreeStyle Crystal 3 Sensor device) apply new sensor every 14 days 2 ea 11RF blood-glucose meter,continuous (FreeStyle Crystal 3 [place]) Use daily to monitor blood glucose levels continuously. 1 ea 0RF blood-glucose sensor (FreeStyle Crystal 3 Sensor device) apply new sensor every 14 days 2 ea 11RF blood-glucose meter,continuous (FreeStyle Crystal 3 [place]) Use daily to monitor blood glucose levels continuously. 1 ea 0RF glucose (Dex4 Glucose Quick Dissolve) until symptoms of low blood sugar are controlled 16 grams (4 x 4 gram) PO Q15M PRN 10 tabs 3RF hypoglycemia pioglitazone (Actos) 15 mg PO DAILY 90 tabs 0RF Patient Instructions: Decrease Novolog to 18 units before meals. Insulin aspart Novolog: Administer within 5-10 minutes before a meal. Insulina Aspart Novolog: Administrar entre 5 y 10 minutos antes de sona comida. Treat low blood sugar: If you experience low blood sugar, treat this by eating a chewable fruit candy like skittles or jelly beans (about 8 pieces), 4 ounces (1/2 cup) of fruit juice (not diet), 1 tablespoon of honey or 4 glucose tablets. If your blood sugar is under 50, take double the amount of one of the above. Recheck your blood sugar in 15 minutes. Prescriptions sent to pharmacy: Actos 15 mg once daily Freestyle crystal 3 and crystal 3 sensors Glucose tablets I will refer to the family living educator. You can tell them when they call you will set it up once you picker operator the crystal 3 sensor and reader from the pharmacy. Coding Level of Care Code Est Pt Level 5 (53134) Complex EM visit Add On G2211 Diagnoses Type 2 diabetes mellitus with insulin therapy E11.9; Z79.4 Time Spent (min) 66 Comment Chart review, direct patient care, completing documentation
[2024-02-03 10:12] VITALS: BP 118/68; PULSE 96
[2024-02-03 10:19] LABS: Glucose, Whole Blood 168 mg/dL (60-115)
== END 2024-02-03 11:12 | disposition home or self-care (01) ==
PROVIDERS: PCP Internal Medicine; Visit Provider Physician Assistant Medical
DX: E11.42 Type 2 diabetes mellitus with diabetic polyneuropathy (principal); Z79.4 Long term (current) use of insulin

== ENCOUNTER 2024-02-05 09:10 | Outpatient (REF) | payer OTHER, SELFPAY ==
[2024-02-05 09:26] LABS: MANUAL DIFF FLAG NO
[2024-02-05 10:36] LABS: Basophils Absolute Auto 0.1 X10*3/uL (0.0-0.2); Basophils Percent Auto 0.7 % (0-2); Eosinophils Absolute Auto 0.2 X10*3/uL (0.0-0.4); Eosinophils Percent Auto 1.4 % (0-4); Hemoglobin 13.9 g/dl (12.0-16.0); Imm Gran Abs Auto 0.05 X10*3/uL (0.00-0.03); Imm Gran Pct Auto 0.5 % (0.0-0.4); Lymphocytes Absolute Auto 2.5 X10*3/uL (1.2-4.9); Lymphocytes Percent Auto 22.6 % (20-40); Mean Corpuscular HGB Conc 33.1 g/dl (31.0-35.0); Mean Corpuscular Hemoglobin 30.2 pg (27.0-33.0); Mean Corpuscular Volume 91.3 fL (80.0-98.0); Mean Platelet Volume 10.5 fL (9.4-12.3); Monocytes Absolute Auto 0.5 X10*3/uL (0.1-1.2); Monocytes Percent Auto 4.5 % (2-11); Neutrophils Absolute Auto 7.8 x10*3/uL (2.0-8.3); Neutrophils Percent Auto 70.3 % (45-73); Platelet Count 366 X10*3/uL (160-400); Red Cell Distribution Width 13.2 % (11.0-16.0); White Blood Count 11.1 X10*3/uL (4.8-10.8)
[2024-02-05 11:09] LABS: Alanine Aminotransferase 9 U/L (0-31); Albumin Level 3.9 g/dL (3.5-5.0); Alkaline Phosphatase 96 U/L (39-117); Anion Gap 16 (12-20); Aspartate Amino Transferase 14 U/L (5-31); Bilirubin Total 0.3 mg/dL (0.0-1.0); Blood Urea Nitrogen 13 mg/dL (9-16); C Reactive Protein 1.43 mg/dL (< or = 0.50); Carbon Dioxide 28 mmol/L (22-29); Chloride 104 mmol/L (96-108); Estimated Glomerular Filt Rate > 60; Glucose Random 117 mg/dL (60-115); Potassium 4.7 mmol/L (3.3-5.1); Sodium 143 mmol/L (135-145); Total Protein 7.6 g/dL (6.5-8.0)
[2024-02-05 11:15] LABS: Erythrocyte Sedimentation Rate 67 MM/HR (0-20)
[2024-02-05 11:28] LABS: HBS Num1 0.35 mIU/mL (0-7.99); HBc Num1 0.12 S/CO (0.00-0.79); HBsAGNum1 0.27 S/CO (0.00-0.99); Hepatitis A Antibody IgM 0.37 Index (0-0.79); Hepatitis B Core Antibody Nonreactive (Nonreactive); Hepatitis B Surface Antigen Negative (Negative); ~HepC Num1 0.21 S/CO (0.00-0.79); ~Hepatitis A Antibody IgM Nonreactive (Nonreactive); ~Hepatitis B Surface Antibody NONREACTIVE (Nonreactive); ~Hepatitis C Antibody Nonreactive (Nonreactive)
[2024-02-07 23:18] LABS: TS Negative Control Passed; TS Panel A 0; TS Panel B 0; TS Positive Control Passed; TSpotTB Negative (Negative)
== END 2024-02-05 09:11 | disposition home or self-care (01) ==
LOC: HO.LAB 09:10
PROVIDERS: PCP Internal Medicine; Visit Provider Nurse Practitioner Family
DX: M13.80 Other specified arthritis, unspecified site (principal); Z79.60 Long term (current) use of unspecified immunomodulators and immunosuppressants; Z11.9 Encounter for screening for infectious and parasitic diseases, unspecified
CPT/HCPCS: 36415; 80053; 85025; 85652; 86140; 86481; 86704; 86706; 86709; 86803; 87340

== ENCOUNTER 2024-02-13 14:07 | Outpatient (AMB) | payer OTHER, SELFPAY ==
--- NOTE | 2024-02-13 14:39 | MHC.OFFVIS ---
Vital Signs 02/13/24 14:47 Height 5 ft 6 in Weight 182 lb 5.156 oz BMI 29.4 BP 115/68 Blood Pressure Location Lt brachial Position Sitting Pulse 98 Pulse Source Pulse Oximeter Pulse Oximetry (%) 97 Oxygen Delivery Method Room Air Intake Visit Reasons: Elevated ESR/CRP Polymyalgia./cm Intake Note: Patient presents for Elevated ESR/CRP Polymyalgia. Manufacturing Development Engineer Required: Yes Manufacturing Development Engineer Language: Anesthesiologist Services: Manufacturing Development Engineer Present Manufacturing Development Engineer Name: Ernesto Dang Information Interpreted: non-clinical & clinical Accounts Administrator: Accounts Administrator Present Accompanied by: Son Allergies insulin detemir Allergy (Intermediate, Verified 02/13/24 14:46) Rash penicillin V Allergy (Intermediate, Verified 02/13/24 14:46) Rash acetaminophen [From Tylenol] Allergy (Mild, Verified 02/13/24 14:46) ITCH,RASH iodine [Iodine] Allergy (Mild, Verified 02/13/24 14:46) HIVES penicillin G [Penicillin G] Allergy (Mild, Verified 02/13/24 14:46) RASH latex [LATEX] Allergy (Unknown, Verified 02/13/24 14:46) RASH trimerosal Allergy (Intermediate, Uncoded 02/03/24 10:21) rash Latex Gloves Allergy (Mild, Uncoded 02/03/24 10:21) Rash METAL Allergy (Mild, Uncoded 02/03/24 10:21) HIVES Medication List - Last Reconciled 02/13/24 by Walker De La Garza MD albuterol sulfate 90 mcg/actuation 2 puffs inhalation Q6H PRN amlodipine 5 mg PO BEDTIME aspirin 81 mg PO DAILY atenolol 12.5 mg PO BID atorvastatin 40 mg PO BEDTIME blood sugar diagnostic (FreeStyle Lite Strips) four times a day blood-glucose meter (FreeStyle Lite Meter kit) As directed blood-glucose meter,continuous (FreeStyle Crystal 3 [place]) Use daily to monitor blood glucose levels continuously. blood-glucose sensor (FreeStyle Crystal 3 Sensor device) apply new sensor every 14 days [Cane As directed] cefpodoxime 200 mg PO BID 10 days docusate sodium 100 mg PO BEDTIME dulaglutide (Trulicity) 4.5 mg subcut MO@0900 fluticasone propion-salmeterol 500-50 mcg/dose (Advair Diskus) 1 inh inhalation BID gabapentin 800 mg PO TID glucose (Dex4 Glucose Quick Dissolve) 16 grams (4 x 4 gram) PO Q15M PRN insulin aspart U-100 (Novolog FlexPen U-100 Insulin aspart) 18 units subcut TIDAC insulin degludec (Tresiba FlexTouch U-200 insulin) 60 units (0.3 mL) subcut BEDTIME 30 days insulin syringe-needle U-100 As directed lancets (FreeStyle Lancets) four times a day lidocaine 5% 1 appl topical BID PRN losartan 100 mg PO DAILY montelukast (Singulair) 10 mg PO BEDTIME nicotine 21 mg transdermal DAILY oxybutynin chloride ER 10 mg PO DAILY pen needle, diabetic (BD Ultra-Fine Janene Pen Needle) As directed four times a day pioglitazone (Actos) 15 mg PO DAILY tramadol 50 mg PO TID PRN umeclidinium 62.5 mcg/actuation (Incruse Ellipta) 1 inh inhalation DAILY zolpidem 10 mg PO BEDTIME PRN HPI Comments Details: This is a 69-year-old female with history of fibromyalgia and generalized osteoarthritis who presents for follow-up. Patient was started on minimize by Kavya Schmitz for suspected PMR in the past. Patient stated that she could not tolerate it. She states that she continues to have diffuse pain. She has right leg weakness. She does not know how long she has had the weakness. She continues to take tramadol 50 mg t.i.d.. [facility] Medical History Type 2 diabetes mellitus with insulin therapy CVA (cerebral vascular accident) Osteopenia Screening examination for infectious disease Long-term use of immunosuppressant medication Seronegative inflammatory arthritis Osteoporosis Insulin dependent type 2 diabetes mellitus Elevated C-reactive protein Elevated sed rate Myalgia, upper arm Polymyalgia rheumatica syndrome Knee instability Back pain at L4-L5 level Knee pain, right Knee pain, left UTI (urinary tract infection) Proteinuria Hyperlipidemia Lumbar spondylosis Fibromyalgia Syncope COPD (chronic obstructive pulmonary disease) Depression Asthma Type 2 diabetes mellitus with hyperglycemia, with long-term current use of insulin Type 2 diabetes mellitus with chronic kidney disease Chronic kidney disease, stage 3 unspecified Type 2 diabetes mellitus with diabetic polyneuropathy Essential hypertension Surgical History Hx of mammogram Hx of colonoscopy Hx of oral surgery Hx of tubal ligation Family History Father No problems noted. Mother Heart disease CVD (cardiovascular disease) Diabetes Social History Household Members: Family Housing: Apartment Do you presently have visiting nurse or other home services: No Alcohol intake: never Patient Tobacco Use Status: Current everyday Tobacco user Tobacco use type: Cigarette Cigarette Packs Per Day: 0.5 Cigarettes Per Day: 10.0 Review of Systems Const Reports fatigue and Reports weakness Musc Reports back pain, Reports arthralgias and Reports numbness Neuro Reports numbness and Reports weakness Endo Reports fatigue Physical Exam Vital Signs: Last Vital Signs Pulse 98 02/13/24 14:47 BP 115/68 02/13/24 14:47 Pulse Ox 97 02/13/24 14:47 Oxygen Delivery Method Room Air 02/13/24 14:47 BMI result Body Mass Index 29.4 Const General: cooperative, healthy appearing and comfortable Nutritional Appearance: overweight Orientation/consciousness: patient oriented x3 Limitations: ambulation with walker HEENT Head: Yes normocephalic and Yes atraumatic Mouth: moist mucous membranes Resp Effort & Inspection: normal respiratory effort and able to speak in complete sentences Skin General skin exam: no rashes or lesions noted Neuro General: patient oriented x3 Extrem Other: No swelling or tenderness both hands and wrists Normal range of motion of elbows and shoulders without pain Significantly reduced right hip flexion No knee swelling or tenderness bilaterally Assessment & Plan Assessment & Plan (1) Lumbar spondylosis: Code(s): M47.816 - Spondylosis without myelopathy or radiculopathy, lumbar region Category: Medical Plan: Patient with a history of lumbar spondylosis causing chronic low back pain. She has been on tramadol regularly for years now. I will refer her tramadol. Follow-up with neurologist for right lower extremity weakness. Follow-up in 6 months Plan I spent 17 minutes reviewing patient's chart, evaluating patient, , counseling patient and documenting in the chart Coding Level of Care Code Est Pt Level 3 (93453) Diagnoses Lumbar spondylosis M47.816
[2024-02-13 14:47] VITALS: BP 115/68; PULSE 98; O2SAT 97; BMI 29.4
== END 2024-02-13 15:30 | disposition home or self-care (01) ==
PROVIDERS: PCP Internal Medicine; Visit Provider Student in an Organized Health Care Education/Training Program
DX: M47.816 Spondylosis without myelopathy or radiculopathy, lumbar region (principal)
CPT/HCPCS: 99213

== ENCOUNTER → 2024-02-13 14:07 | Outpatient (BNVA) | payer OTHER, SELFPAY | PROVIDERS: PCP Internal Medicine; Visit Provider Student in an Organized Health Care Education/Training Program | DX: M47.816 Spondylosis without myelopathy or radiculopathy, lumbar region (principal); M35.3 Polymyalgia rheumatica; M79.7 Fibromyalgia | CPT/HCPCS: 99212 ==

== ENCOUNTER → 2024-02-15 10:43 | Outpatient (BNV) | payer OTHER, SELFPAY | PROVIDERS: PCP Internal Medicine; Visit Provider Radiology Diagnostic Radiology | DX: M54.50 Low back pain, unspecified (principal); M54.2 Cervicalgia | CPT/HCPCS: 72141; 72148 ==

== ENCOUNTER 2024-02-15 10:57 | Outpatient (REF) | payer OTHER, SELFPAY | END 2024-02-15 10:58 | disposition home or self-care (01) | LOC: HO.MRI 10:57 | PROVIDERS: PCP Internal Medicine; Visit Provider Internal Medicine | DX: M54.2 Cervicalgia (principal); M54.50 Low back pain, unspecified; R29.898 Other symptoms and signs involving the musculoskeletal system | CPT/HCPCS: 72141; 72148 ==

== ENCOUNTER 2024-03-02 10:19 | Outpatient (REF) | payer OTHER, SELFPAY ==
--- NOTE | 2024-03-02 10:23 | EMG_ITS ---
Right tibial and peroneal motor studies were performed. Right superficial peroneal and sural sensory studies were performed. Tibial H-reflex was obtained, and needle examination was performed. 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 MD LEANDRA Yanez/CLARKL / [phone]
== END 2024-03-02 10:20 | disposition home or self-care (01) ==
LOC: HO.NEURO 10:19
PROVIDERS: PCP Internal Medicine; Visit Provider Internal Medicine
DX: R29.898 Other symptoms and signs involving the musculoskeletal system (principal)
CPT/HCPCS: 95886; 95909

== ENCOUNTER → 2024-03-03 13:00 | Outpatient (BNV) | payer OTHER, SELFPAY | PROVIDERS: PCP Internal Medicine; Visit Provider Radiology Diagnostic Radiology | DX: N64.1 Fat necrosis of breast (principal) | CPT/HCPCS: 76642; 77066; G0279 ==

== ENCOUNTER 2024-03-03 13:12 | Outpatient (REF) | payer OTHER, SELFPAY ==
--- NOTE | ~2024-03-03 | US_ITS ---
EXAMINATION: MM DIAGNOSTIC DIGITAL BREAST TOMOSYNTHESIS, BILATERAL US BREAST LIMITED, RIGHT CLINICAL INFORMATION: Diagnostic exam; follow-up for left retroareolar asymmetry anterior depth cc view; follow-up developing focal asymmetry upper outer quadrant posterior depth with associated mild architectural distortion right breast. Patient uses a walker and has a history of multiple falls. COMPARISON: Mammography: 01/01/2024, and exams dating back to 2018. TECHNIQUE: Digital breast tomosynthesis is performed in the following views: Right 3-D spot compression CC view x2, right 3-D spot compression MLO view, and a left 3-D spot compression CC view. Computer-aided diagnosis was used for this study. This was followed by targeted right breast ultrasound. FINDINGS: There are scattered areas of fibroglandular density (ACR BI-RADS breast composition Category b). Diagnostic views LEFT breast show only mild stable duct ectasia in the retroareolar region, unchanged from numerous prior exams. These findings are benign. There are no persistent findings suspicious for malignancy left breast. Diagnostic views RIGHT breast demonstrate a persisting area of architectural distortion in the approximate 10:00 axis of the right breast, middle to posterior depth, interspersed with at least one focus of fat density. The findings highly suggest fat necrosis as the underlying etiology. Slightly more towards the nipple there is an oval 9 mm circumscribed mass which is stable from prior exams. These will be evaluated with ultrasound. ULTRASOUND: CLINICAL INFORMATION: Evaluate focal asymmetry with architectural distortion 10:00 axis right breast. COMPARISON: No relevant prior. TECHNIQUE: Targeted sonographic evaluation right breast upper outer quadrant was performed using a high frequency linear transducer. Selected archived documentation. FINDINGS: RIGHT BREAST: -At the 10:00 axis right breast, 8 cm from the nipple, there is an irregular predominantly hyperechoic focus with central hypoechoic echoes, measuring an estimated 1.9 x 1.2 x 1.2 cm, no internal color Doppler flow, mildly echogenic surrounding fat, and mild posterior acoustic attenuation without gross shadowing. This has an appearance fairly classic for fat necrosis, and correlates well with the appearance on mammography (as well as a history of multiple falls). This is probably benign, and six-month interval follow-up targeted right breast ultrasound recommended. In addition, there are several tiny oval anechoic cysts present, with a dominant oval benign cyst measuring 9 mm at the 10:00 axis, 3 cm from the nipple. These are benign. US/US breast BI limited mamm only IMPRESSION: -There are no findings suspicious for malignancy within either breast. -Probably benign area of fat necrosis upper outer right breast 10:00 axis, 8 cm from the nipple, for which six-month follow-up TARGETED RIGHT BREAST ULTRASOUND recommended to ensure stability. OVERALL ASSESSMENT: Mammography: BI-RADS 3 - Probably benign finding(s) - 6 month follow-up suggested Ultrasound: BI-RADS 3 - Probably benign finding(s) - 6 month follow-up suggested RECOMMENDATION: 6 Month F/U Electronically signed by: Kaleb Del Valle MD 03/03/2024 04:06 PM I[facility]ABEL P[facility]TER
== END 2024-03-03 13:13 | disposition home or self-care (01) ==
LOC: HO.MAMMO 13:12
PROVIDERS: PCP Internal Medicine; Visit Provider Internal Medicine
DX: R92.8 Other abnormal and inconclusive findings on diagnostic imaging of breast (principal)
CPT/HCPCS: 76642; 77062; 77066

== ENCOUNTER 2024-03-04 09:08 | Outpatient (AMB) | payer OTHER, SELFPAY ==
--- NOTE | 2024-03-04 09:54 | A.OFFVIS_ITS ---
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: DM-confirmed Allergies insulin detemir Allergy (Intermediate, Verified 02/13/24 14:46) Rash penicillin V Allergy (Intermediate, Verified 02/13/24 14:46) Rash acetaminophen [From Tylenol] Allergy (Mild, Verified 02/13/24 14:46) ITCH,RASH iodine [Iodine] Allergy (Mild, Verified 02/13/24 14:46) HIVES penicillin G [Penicillin G] Allergy (Mild, Verified 02/13/24 14:46) RASH latex [LATEX] Allergy (Unknown, Verified 02/13/24 14:46) RASH trimerosal Allergy (Intermediate, Uncoded 02/03/24 10:21) rash Latex Gloves Allergy (Mild, Uncoded 02/03/24 10:21) Rash METAL Allergy (Mild, Uncoded 02/03/24 10:21) HIVES HPI Comprehensive Diabetes Asmnt Most Recent Diabetes Results: Microalb/Creat Ratio 171.7 ug/mg cr (<30) H 02/03/24 Cholesterol 150 mg/dL (<200) 12/27/23 HDL Cholesterol 38 mg/dL (>40) L 12/27/23 Triglycerides 161 mg/dL (<150) H 12/27/23 Creatinine 0.76 mg/dL (0.5-1.4) 02/05/24 Blood Urea Nitrogen 13 mg/dL (9-16) 02/05/24 Sodium 143 mmol/L (135-145) 02/05/24 Potassium 4.7 mmol/L (3.3-5.1) 02/05/24 Chloride 104 mmol/L (96-108) 02/05/24 Carbon Dioxide 28 mmol/L (22-29) 02/05/24 Calcium 10.0 mg/dL (8.4-10.2) 02/05/24 AST 14 U/L (5-31) 02/05/24 ALT 9 U/L (0-31) 02/05/24 Total Protein 7.6 g/dL (6.5-8.0) 02/05/24 Albumin 3.9 g/dL (3.5-5.0) 02/05/24 FORMERLY [facility] Medical History Type 2 diabetes mellitus with insulin therapy CVA (cerebral vascular accident) Osteopenia Screening examination for infectious disease Long-term use of immunosuppressant medication Seronegative inflammatory arthritis Osteoporosis Insulin dependent type 2 diabetes mellitus Elevated C-reactive protein Elevated sed rate Myalgia, upper arm Polymyalgia rheumatica syndrome Knee instability Back pain at L4-L5 level Knee pain, right Knee pain, left UTI (urinary tract infection) Proteinuria Hyperlipidemia Lumbar spondylosis Fibromyalgia Syncope COPD (chronic obstructive pulmonary disease) Depression Asthma Type 2 diabetes mellitus with hyperglycemia, with long-term current use of insulin Type 2 diabetes mellitus with chronic kidney disease Chronic kidney disease, stage 3 unspecified Type 2 diabetes mellitus with diabetic polyneuropathy Essential hypertension Surgical History Hx of mammogram Hx of colonoscopy Hx of oral surgery Hx of tubal ligation Family History Father No problems noted. Mother Heart disease CVD (cardiovascular disease) Diabetes Social History Household Members: Family Housing: Apartment Do you presently have visiting nurse or other home services: No Alcohol intake: never Patient Tobacco Use Status: Current everyday Tobacco user Tobacco use type: Cigarette Cigarette Packs Per Day: 0.5 Cigarettes Per Day: 10.0 Assessment & Plan Assessment & Plan (1) Type 2 diabetes mellitus with diabetic polyneuropathy: Code(s): E11.42 - Type 2 diabetes mellitus with diabetic polyneuropathy Qualifiers: Diabetes mellitus adjunct faculty for medical terminology insulin use: with usp use Qualified Code(s): E11.42 - Type 2 diabetes mellitus with diabetic polyneuropathy; Z79.4 - rodent exterminator (current) use of insulin Plan: (2) Type 2 diabetes mellitus with insulin therapy: Code(s): E11.9 - Type 2 diabetes mellitus without complications; Z79.4 - rodent exterminator (current) use of insulin Plan: Patient at visit to set up an insert Crystal 3 sensors Patient has currently been checking with meter 1-2 times daily Fasting glucose range between 99 to 162 mg/dL in the past 7 days Instructed patient sensors water proof you can shower, or swim do not submerge sensor in water for over 30 minutes Is sensor falls off cannot put back in you need to replace sensor, customer service number given to patient for sensor replacement Sensor placed on the Back of Right arm Patient left visit with sensor in warmup Reviewed how to interpret trend arrows Reminded patient that to check finger sticks if symptoms do not match sensor reading. Discussed lag time between finger stick and sensor data.? Instructed patient she should always keep blood glucometer for backup testing if needed Reviewed delay of CGM from fingersticks Reminded pt that if symptoms do not match sensor still needs to check fing ersticks. Portions of this note were created using voice recognition software, please excuse any words or phrases that may have been misinterpreted. Patient Instructions: Patient instruction: CGM provides information on blood glucose control throughout the day, including hyperglycemia and hypoglycemia. ? Continue to maxime tor blood glucose as instructed. Follow nutrition guidelines provided. Report any discomfort promptly to health care provider. ?Stay well-hydrated. You can bathe ,shower, swim and exercise while wearing the glucose sensor. Do not submerge glucose sensor in water for more than 30 minutes. Instrucciones para el paciente: CGM proporciona informaci?n sobre el control de la glucosa en carlene a lo jeanette del d?a, incluidas la hiperglucemia y la hipoglucemia. Contin?e controlando la glucosa en carlene seg?n las instrucciones. Siga las pautas de nutrici?n proporcionadas. Informe cualquier molestia de inmediato al proveedor de atenci?n m?dica. Mantente kati hidratado. Puede ba?arse, ducharse, nadar y hacer ejercicio mientras usa el sensor de glucosa. No sumerja el sensor de glucosa en agua guicho m?s de 30 minutos. Retire el sensor para sona resonancia magn?thom o sona tomograf?a computarizada. Evite la m?quina de jennifer X en los aeropuertos: retire el sensor o solicite la varita Coding Level of Care Code Est Pt Level 1 (74727) Diagnoses Type 2 diabetes mellitus with diabetic polyneuropathy, with long-term current use of insulin E11.42; Z79.4 Diabetes mellitus usp insulin use: with adjunct faculty for medical terminology use Type 2 diabetes mellitus with insulin therapy E11.9; Z79.4
== END 2024-03-04 09:57 | disposition home or self-care (01) ==
PROVIDERS: PCP Internal Medicine; Visit Provider Registered Nurse Diabetes Educator
DX: E11.42 Type 2 diabetes mellitus with diabetic polyneuropathy (principal); Z79.4 Long term (current) use of insulin; E11.9 Type 2 diabetes mellitus without complications

== ENCOUNTER → 2024-03-04 09:08 | Outpatient (BNVA) | payer OTHER, SELFPAY | PROVIDERS: PCP Internal Medicine; Visit Provider Registered Nurse Diabetes Educator | DX: E11.42 Type 2 diabetes mellitus with diabetic polyneuropathy (principal); Z79.4 Long term (current) use of insulin | CPT/HCPCS: 99211 ==

== ENCOUNTER 2024-03-05 09:21 | Outpatient (AMB) | payer OTHER, SELFPAY ==
--- NOTE | 2024-03-05 09:26 | A.OFFVIS_ITS ---
Vital Signs 03/05/24 09:32 Height 5 ft 6 in Weight 176 lb 9.444 oz BMI 28.5 BP 132/52 L Blood Pressure Location Lt brachial Position Sitting Pulse 107 H Pulse Source Pulse Oximeter Intake Visit Reasons: Type II DM review CGM Intake Note: Patient present today to follow up on Type 2 Diabetes Mellitus. Last Diabetic Eye exam: DUE Last Podiatry Visit: Does not see a Firewall Administrator Random Glucose: 104 mg/dl HgA1C: 10.6% 02/03/2024 Software Build Engineer Required: Yes Software Build Engineer Language: Astrobiologist Services: Software Build Engineer Offered & Declined Accompanied by: Son, LEASING REPRESENTATIVE Allergies insulin detemir Allergy (Intermediate, Verified 03/05/24 09:36) Rash penicillin V Allergy (Intermediate, Verified 03/05/24 09:36) Rash acetaminophen [From Tylenol] Allergy (Mild, Verified 03/05/24 09:36) ITCH,RASH iodine [Iodine] Allergy (Mild, Verified 03/05/24 09:36) HIVES penicillin G [Penicillin G] Allergy (Mild, Verified 03/05/24 09:36) RASH latex [LATEX] Allergy (Unknown, Verified 03/05/24 09:36) RASH trimerosal Allergy (Intermediate, Uncoded 03/05/24 09:36) rash Latex Gloves Allergy (Mild, Uncoded 03/05/24 09:36) Rash METAL Allergy (Mild, Uncoded 03/05/24 09:36) HIVES HPI Comments Details: This is a 69-year-old female with a past medical history of hypertension, type 2 diabetes, depression, fibromyalgia, moderate persistent asthma, tobacco use, obesity, right thyroid nodule, pulmonary nodules, overactive bladder, recurrent UTI and hyperlipidemia presenting for diabetic management. She is accompanied by her son, Ernesto, and her [id number]-[id number]-hwq, Kiesha. They are her media center director school. She was diagnosed around 1996 with type 2 diabetes. Hemoglobin A1c 10.6% 02/03/24 down from 12.6% 01/15/2024 per PCP note. Reviewed glucometer log. Average sugar 144 In range 80% of the time. Highest sugar 216. Lowest sugar 70. 20% hyperglycemia. 0% hypoglycemia. Crystal 3 was approved. Sample was placed on patient yesterday, and she will machine operator picker her prescription from the pharmacy. Current regimen: Trulicity 4.5 mg weekly, Actos 15 mg, Tresiba U 200 60 units at bedtime and NovoLog 18 units 3 times a day before meals if BG is over 100. Metformin previously discontinued due to worsening renal function. She took glipizide and does not recall why it was discontinued. Says she does not do well on a lot of medications. Compliance issues: Patient administering NovoLog correctly now. Hypoglycemia symptoms: No episodes since last visit Hyperglycemia symptoms: none Eye exam: [facility] - glaucoma Microvascular complications: neuropathy, nephropathy (microalbuminuria per previous notes and CKD stage 3 per problem list) Macrovascular complications: ?TIA- evaluated in hospital 12/2023 and by Rheumatology and Neurology for right-sided weakness and numbness. Hypertension is treated with amlodipine 5 mg, atenolol 25 mg half a tablet twice a day and losartan 100 mg daily. Hyperlipidemia is treated with atorvastatin 40 mg daily. ROS: Constitutional: No fevers or chills or increased fatigue. No unexplained weight loss. Eyes: No blurry vision, double vision or eye pain. Respiratory: No shortness of breath, cough or sputum production. Cardiovascular: No chest pain, chest pressure or chest discomfort. No palpitations Gastrointestinal: No anorexia, nausea, vomiting or diarrhea. No abdominal pain Genitourinary: No dysuria, hematuria or frequency. Neurologic: See HPI Skin: No open wounds. Endocrine: No cold or heat intolerance. No polyuria or polydipsia. Physical exam: Constitutional: Alert, in no distress. Eyes: Pupils are equal, round and reactive to light. Extraocular muscles intact. Neck: Supple, Full range of motion. No lymphadenopathy. No palpable thyroid masses. Respiratory: Clear to auscultation. Cardiovascular: S1 S2 regular. No murmurs. [facility] Medical History Type 2 diabetes mellitus with insulin therapy CVA (cerebral vascular accident) Osteopenia Screening examination for infectious disease Long-term use of immunosuppressant medication Seronegative inflammatory arthritis Osteoporosis Insulin dependent type 2 diabetes mellitus Elevated C-reactive protein Elevated sed rate Myalgia, upper arm Polymyalgia rheumatica syndrome Knee instability Back pain at L4-L5 level Knee pain, right Knee pain, left UTI (urinary tract infection) Proteinuria Hyperlipidemia Lumbar spondylosis Fibromyalgia Syncope COPD (chronic obstructive pulmonary disease) Depression Asthma Type 2 diabetes mellitus with hyperglycemia, with long-term current use of insulin Type 2 diabetes mellitus with chronic kidney disease Chronic kidney disease, stage 3 unspecified Type 2 diabetes mellitus with diabetic polyneuropathy Essential hypertension Surgical History Hx of mammogram Hx of colonoscopy Hx of oral surgery Hx of tubal ligation Family History Father No problems noted. Mother Heart disease CVD (cardiovascular disease) Diabetes Social History Household Members: Family Housing: Apartment Do you presently have visiting nurse or other home services: No Alcohol intake: never Patient Tobacco Use Status: Current everyday Tobacco user Tobacco use type: Cigarette Cigarette Packs Per Day: 0.5 Cigarettes Per Day: 10.0 Physical Exam Vital Signs: Last Vital Signs Pulse 107 H 03/05/24 09:32 BP 132/52 L 03/05/24 09:32 BMI result Body Mass Index 28.5 Results Reviewed Results Reviewed: Laboratory Last Values Glucose (Clinic) 104 mg/dL (60-115) 03/05/24 09:44 Assessment & Plan Assessment & Plan (1) Type 2 diabetes mellitus with insulin therapy: Code(s): E11.9 - Type 2 diabetes mellitus without complications; Z79.4 - skilled nursing (current) use of insulin Category: Medical Plan In summary this is a 69-year-old female with a past medical history of type 2 diabetes with microvascular complications on basal-bolus insulin, Trulicity, Actos and Jardiance with significantly improved glycemic control per glucometer readings. Continue NovoLog to 18 units and administer 5-10 minutes prior to meals. Continue Tresiba 60 units at bedtime Continue Trulicity 4.5 mg weekly. Continue Actos 15 mg daily. She will follow up in 4 weeks for type 2 diabetes to review CGM data. Patient followed by educator senior clinical. We reviewed treatment of hypo/hyperglycemia. She has glucose tablets. Coding Level of Care Code Est Pt Level 4 (16220) Complex EM visit Add On G2211 Diagnoses Type 2 diabetes mellitus with insulin therapy E11.9; Z79.4
[2024-03-05 09:32] VITALS: BP 132/52; PULSE 107; BMI 28.5
[2024-03-05 09:49] LABS: Glucose, Whole Blood 104 mg/dL (60-115)
== END 2024-03-05 10:09 | disposition home or self-care (01) ==
PROVIDERS: PCP Internal Medicine; Visit Provider Physician Assistant Medical
DX: E11.9 Type 2 diabetes mellitus without complications (principal); Z79.4 Long term (current) use of insulin

== ENCOUNTER → 2024-03-05 09:21 | Outpatient (BNVA) | payer OTHER, SELFPAY | PROVIDERS: PCP Internal Medicine; Visit Provider Physician Assistant Medical | DX: E11.9 Type 2 diabetes mellitus without complications (principal); Z79.4 Long term (current) use of insulin; Z79.84 Long term (current) use of oral hypoglycemic drugs; Z79.85 Long-term (current) use of injectable non-insulin antidiabetic drugs | CPT/HCPCS: 82947; 99212 ==

== ENCOUNTER 2024-03-11 09:40 | Outpatient (RCR) | payer OTHER, SELFPAY | END 2024-05-26 13:51 | disposition home or self-care (01) | LOC: HO.PT 09:40 | PROVIDERS: PCP Internal Medicine; Visit Provider Internal Medicine | DX: M54.2 Cervicalgia (principal) | CPT/HCPCS: 97110; 97112; 97116; 97163; 97530 ==

== ENCOUNTER 2024-03-15 11:58 | Outpatient (REF) | payer OTHER, SELFPAY ==
[2024-03-16 08:24] LABS: Syphilis Screen Nonreactive (Nonreactive)
[2024-03-16 17:13] LABS: Lyme Abs Screen <0.90 index
[2024-03-16 21:59] LABS: IgA 335 mg/dL (70-320); IgG 1114 mg/dL (600-1540); IgM 72 mg/dL (50-300)
--- NOTE | 2024-03-26 15:34 | PC.NURSE ---
03/26/24 Telephone call to the patient. Medications and history reviewed. The patient was informed to ask the perscribing MD to stop Aspirin 5 days before the procedure. Preop instructions given. The patient verbalized an understanding.
== END 2024-03-15 11:59 | disposition home or self-care (01) ==
LOC: HO.LAB 11:58
PROVIDERS: PCP Internal Medicine; Visit Provider Psychiatry & Neurology Neurology
DX: G61.81 Chronic inflammatory demyelinating polyneuritis (principal)
CPT/HCPCS: 36415; 82784; 86334; 86617; 86618; 86780

== ENCOUNTER 2024-04-02 09:58 | Outpatient (AMB) | payer OTHER, SELFPAY ==
[2024-04-02 09:59] VITALS: BP 118/68; PULSE 106; BMI 28.5
--- NOTE | 2024-04-02 09:59 | A.OFFVIS_ITS ---
Vital Signs 04/02/24 09:59 Height 5 ft 6 in Weight 176 lb 5.917 oz BMI 28.5 BP 118/68 Blood Pressure Location Rt brachial Position Sitting Pulse 106 H Pulse Source Pulse Oximeter Intake Visit Reasons: [id number] Intake Note: Patient present today to follow up on Type 2 Diabetes Mellitus. Last Diabetic Eye exam: DUE Last Podiatry Visit: Does not see a Looper Operator Most Recent HgA1C: 10.6% 02/03/2024 Random Glucose: 170 mg/dL, Today Tax Collection Coordinator Required: Yes Tax Collection Coordinator Language: Liquid Center Assembler Services: Tax Collection Coordinator Offered & Declined Accompanied by: Son, BETO Allergies insulin detemir Allergy (Intermediate, Verified 04/02/24 10:01) Rash penicillin V Allergy (Intermediate, Verified 04/02/24 10:01) Rash acetaminophen [From Tylenol] Allergy (Mild, Verified 04/02/24 10:01) ITCH,RASH iodine [Iodine] Allergy (Mild, Verified 04/02/24 10:01) HIVES penicillin G [Penicillin G] Allergy (Mild, Verified 04/02/24 10:01) RASH latex [LATEX] Allergy (Unknown, Verified 04/02/24 10:01) RASH trimerosal Allergy (Intermediate, Uncoded 04/02/24 10:01) rash Latex Gloves Allergy (Mild, Uncoded 04/02/24 10:01) Rash METAL Allergy (Mild, Uncoded 04/02/24 10:01) HIVES HPI Comments Details: This is a 69-year-old female with a past medical history of hypertension, type 2 diabetes, depression, fibromyalgia, moderate persistent asthma, tobacco use, obesity, right thyroid nodule, pulmonary nodules, overactive bladder, recurrent UTI and hyperlipidemia presenting for diabetic management. She is accompanied by her son, Ernesto, and her [id number]-xfk, Kiesha. They are her hand shaper. She was diagnosed around 1996 with type 2 diabetes. Hemoglobin A1c 10.6% 02/03/24 down from 12.6% 01/15/2024 per PCP note. Reviewed Crystal 3 download dated 03/20/2024 to 04/02/2024 CGM active 97% GMI 7% Average glucose 156 Glucose variability 30.1% Very high 3% High 23% Target range 74% Hypoglycemia 0% She has a pattern of postprandial highs particularly after breakfast. She has both lows and highs in the late afternoon and sometimes evening. Patient's breakfast is around 8:30 am and is usually a cheese and egg sandwich on regular bread or some boiled eggs with 2 slices of bread and butter. Her TECHNICAL SOURCING RECRUITER leaves in the afternoon so she has to wait for her daughter to prepare dinner which is sometimes not until 7 or 8 pm. Current regimen: Trulicity 4.5 mg weekly, Actos 15 mg, Tresiba U 200 60 units at bedtime and NovoLog 18 units 3 times a day before meals. Metformin previously discontinued due to worsening renal function. She took glipizide and does not recall why it was discontinued. Says she does not do well on a lot of medications. Compliance issues: Patient administering NovoLog correctly now. Hypoglycemia symptoms: See above. Patient treats with glucose tablets and soda. Hyperglycemia symptoms: none Eye exam: [facility] - glaucoma Microvascular complications: neuropathy, nephropathy (microalbuminuria per previous notes and CKD stage 3 per problem list) Macrovascular complications: ?TIA- evaluated in hospital 12/2023 and by Rheumatology and Neurology for right-sided weakness and numbness. ROS: Constitutional: No fevers or chills or increased fatigue. No unexplained weight loss. Eyes: No blurry vision, double vision or eye pain. Cardiovascular: No chest pain Skin: No open wounds. Endocrine: No cold or heat intolerance. No polyuria or polydipsia. Physical exam: Constitutional: Alert, in no distress. Eyes: Pupils are equal, round and reactive to light. Extraocular muscles intact. Respiratory: Clear to auscultation. Cardiovascular: S1 S2 regular. No murmurs. [facility] Medical History Type 2 diabetes mellitus with insulin therapy CVA (cerebral vascular accident) Osteopenia Screening examination for infectious disease Long-term use of immunosuppressant medication Seronegative inflammatory arthritis Osteoporosis Insulin dependent type 2 diabetes mellitus Elevated C-reactive protein Elevated sed rate Myalgia, upper arm Polymyalgia rheumatica syndrome Knee instability Back pain at L4-L5 level Knee pain, right Knee pain, left UTI (urinary tract infection) Proteinuria Hyperlipidemia Lumbar spondylosis Fibromyalgia Syncope COPD (chronic obstructive pulmonary disease) Depression Asthma Type 2 diabetes mellitus with hyperglycemia, with long-term current use of insulin Type 2 diabetes mellitus with chronic kidney disease Chronic kidney disease, stage 3 unspecified Type 2 diabetes mellitus with diabetic polyneuropathy Essential hypertension Surgical History Hx of mammogram Hx of colonoscopy Hx of oral surgery Hx of tubal ligation Family History Father No problems noted. Mother Heart disease CVD (cardiovascular disease) Diabetes Social History Household Members: Family Housing: Apartment Do you presently have visiting nurse or other home services: No Alcohol intake: never Patient Tobacco Use Status: Current everyday Tobacco user Tobacco use type: Cigarette Cigarette Packs Per Day: 0.5 Cigarettes Per Day: 10.0 Physical Exam Vital Signs: Last Vital Signs Pulse 106 H 04/02/24 09:59 BP 118/68 04/02/24 09:59 BMI result Body Mass Index 28.5 Assessment & Plan Assessment & Plan (1) Type 2 diabetes mellitus with insulin therapy: Code(s): E11.9 - Type 2 diabetes mellitus without complications; Z79.4 - buttermilk drier operator (current) use of insulin Category: Medical Plan In summary this is a 69-year-old female with a past medical history of type 2 diabetes with microvascular complications on basal-bolus insulin, Trulicity, Actos and Jardiance with significantly improved glycemic control per CGM. Continue NovoLog to 18 units before lunch and dinner. If breakfast is high protein/low carb administer 18 units, but increase to 20 units if having egg sandwich or toast with eggs. Administer 5-10 minutes prior to meals. Start having a snack around 2-3 p.m. Her TECHNICAL SOURCING RECRUITER will prepare this in the morning so it is ready in the afternoon for her. I gave her a list of snack options. Continue Tresiba 60 units at bedtime Continue Trulicity 4.5 mg weekly. Continue Actos 15 mg daily. She will follow up in 6 weeks for type 2 diabetes to review CGM data. Patient followed by senior health educator. We reviewed treatment of hypo/hyperglycemia. She has glucose tablets. Medications: Refilled blood-glucose sensor (FreeStyle Crystal 3 Sensor device) apply new sensor every 14 days 6 ea 3RF Patient Instructions: NovoLog take 18-20 depending on breakfast and continue 18 units before lunch and dinner. Aminister 5-10 minutes prior to meals. Continue Tresiba 60 units at bedtime Continue Trulicity 4.5 mg weekly. Continue Actos 15 mg daily. Start having a snack around 2-3 pm daily. See list of snacks provided today. Coding Level of Care Code Est Pt Level 4 (85174) Complex EM visit Add On G2211 Diagnoses Type 2 diabetes mellitus with insulin therapy E11.9; Z79.4
[2024-04-02 10:11] LABS: Glucose, Whole Blood 170 mg/dL (60-115)
== END 2024-04-02 10:46 | disposition home or self-care (01) ==
PROVIDERS: PCP Internal Medicine; Visit Provider Physician Assistant Medical
DX: E11.9 Type 2 diabetes mellitus without complications (principal); Z79.4 Long term (current) use of insulin

== ENCOUNTER → 2024-04-02 09:58 | Outpatient (BNVA) | payer OTHER, SELFPAY | PROVIDERS: PCP Internal Medicine; Visit Provider Physician Assistant Medical | DX: E11.9 Type 2 diabetes mellitus without complications (principal); Z79.4 Long term (current) use of insulin | CPT/HCPCS: 82947; 99212 ==

== ENCOUNTER → 2024-04-28 08:54 | Day surgery (SDC) | payer OTHER, SELFPAY ==
--- NOTE | ~2024-04-28 | FL_ITS ---
FLUOROSCOPIC LUMBAR PUNCTURE Indication: Chronic inflammatory demyelinating polyneuropathy Risks and benefits and possible complications were discussed with the patient and the consent form was signed. Patient was placed prone on the fluoroscopy table. The back was prepped and draped in routine sterile fashion. Alcohol was used as a skin antiseptic. Utilizing fluoroscopic guidance, the L5-S1 interlaminar space was accessed with a 22 gague Felipe spinal needle and clear CSF fluid was observed from the needle hub, however, flow was extremely slow despite multiple attempts to reposition the needle. The needle was, therefore, removed. Next, the L3-L4 interspace was accessed with a 22-gauge Felipe spinal needle and clear CSF was obtained. Opening pressure was 11 cm H2O in the left lateral decubitus position. A total of 8 cc of clear CSF was removed and sent for analysis. The needle was removed without immediate complications. Total fluoroscopy time: 2.1 min FL/FL guided lumbar puncture LP Impression: Successful fluoroscopic guided lumbar puncture at L3-L4. This procedure was performed by Dmitry Babin PA-C and supervised by Dr. Martines. Electronically signed by: Urbaon Martines MD 04/30/2024 03:16 PM [facility] Workstation: [id number]
[2024-04-28 09:08] VITALS: BP 117/58; PULSE 106; RESP 16; TEMP 36.6; O2SAT 92; BMI 28.4
[2024-04-28 09:40] LABS: Glucose, Whole Blood 187 mg/dL (60-115)
[2024-04-28 12:00] VITALS: BP 117/65; PULSE 95; RESP 16; TEMP 36.3; O2SAT 94
[2024-04-28 12:15] VITALS: BP 135/62; PULSE 95; RESP 16; O2SAT 96
[2024-04-28 12:30] VITALS: BP 122/65; PULSE 94; RESP 16; O2SAT 94
[2024-04-28 12:44] LABS: CSF Appearance Clear, Colorless; CSF Tube # 1
[2024-04-28 12:45] VITALS: BP 143/66; PULSE 94; RESP 16; O2SAT 94
[2024-04-28 12:59] LABS: Glucose CSF 95 mg/dL
[2024-04-28 13:00] VITALS: BP 135/59; PULSE 98; RESP 16; TEMP 36.3; O2SAT 95
[2024-04-28 13:06] LABS: Appearance CSF CLEAR; CSF Tube # 4; Color CSF COLORLESS
[2024-04-28 14:18] LABS: Red Blood Cell CSF 3 MM*3; White Blood Cell CSF 3 MM*3
[2024-04-28 14:20] LABS: CSF Monos 44 %; Lymphocytes CSF 56 %
[2024-04-28 14:22] LABS: Oligoclonal Serum Yes
[2024-04-30 11:47] LABS: Albumin 3.2 g/dL (3.6-5.1); Albumin, CSF 34.7 mg/dL (8.0-42.0); IgG 979 mg/dL (600-1540); IgG Synthesis Rate 5.1 mg/24 h (-9.9-3.3); IgG, CSF 6.4 mg/dL (0.8-7.7)
== END | disposition home or self-care (01) ==
PROVIDERS: Physician Assistant Surgical; PCP Internal Medicine; Visit Provider Psychiatry & Neurology Neurology
PROC: 009U3ZZ Drainage of Spinal Canal, Percutaneous Approach (ICD-10-PCS; CPT 62270; principal; 2024-04-28 11:00)
DX: G61.81 Chronic inflammatory demyelinating polyneuritis (principal); R26.2 Difficulty in walking, not elsewhere classified; R26.89 Other abnormalities of gait and mobility; M47.816 Spondylosis without myelopathy or radiculopathy, lumbar region; M47.812 Spondylosis without myelopathy or radiculopathy, cervical region; I10 Essential (primary) hypertension; E11.9 Type 2 diabetes mellitus without complications; Z79.4 Long term (current) use of insulin; Z79.85 Long-term (current) use of injectable non-insulin antidiabetic drugs; Z79.82 Long term (current) use of aspirin; Z79.899 Other long term (current) drug therapy; Z88.0 Allergy status to penicillin
CPT/HCPCS: 62328; 82042; 82945; 82947; 83916; 84157; 87015; 87070; 87205; 89051; J2003

== ENCOUNTER → 2024-04-28 12:00 | Outpatient (BNV) | payer OTHER, SELFPAY | PROVIDERS: PCP Internal Medicine; Visit Provider Physician Assistant Surgical | DX: G61.81 Chronic inflammatory demyelinating polyneuritis (principal) | CPT/HCPCS: 62328 ==

== ENCOUNTER → 2024-05-14 10:11 | Outpatient (BNVA) | payer OTHER, SELFPAY | PROVIDERS: PCP Internal Medicine; Visit Provider Physician Assistant Medical | DX: E11.9 Type 2 diabetes mellitus without complications (principal); Z79.4 Long term (current) use of insulin | CPT/HCPCS: 82947; 83036; 99212 ==

== ENCOUNTER 2024-07-26 13:18 | Outpatient (AMB) | payer OTHER, SELFPAY ==
--- NOTE | 2024-07-26 13:37 | A.SPINEOV_ITS ---
Vital Signs 07/26/24 13:38 Height 5 ft 6 in Weight 169 lb BMI 27.3 Intake Visit Reasons: Neck pain Intake Note: Ms. Sy is here today c/o Neck pain. Human Resources Hr Generalist Required: No Allergies insulin detemir Allergy (Intermediate, Verified 07/26/24 14:06) Rash penicillin V Allergy (Intermediate, Verified 07/26/24 14:06) Rash acetaminophen [From Tylenol] Allergy (Mild, Verified 07/26/24 14:06) ITCH,RASH iodine [Iodine] Allergy (Mild, Verified 07/26/24 14:06) HIVES penicillin G [Penicillin G] Allergy (Mild, Verified 07/26/24 14:06) RASH latex [LATEX] Allergy (Unknown, Verified 07/26/24 14:06) RASH trimerosal Allergy (Intermediate, Uncoded 04/02/24 10:01) rash Latex Gloves Allergy (Mild, Uncoded 04/02/24 10:01) Rash METAL Allergy (Mild, Uncoded 04/02/24 10:01) HIVES Physical Exam Vital Signs: BMI result Body Mass Index 27.3 Assessment & Plan Assessment & Plan (1) Cervicalgia: Code(s): M54.2 - Cervicalgia Category: Medical Plan Dear Dr. Bey, Thank you for referring Torrie to our office today. She is a very pleasant 69-year-old female who comes in today with a chief complaint of neck pain. She reports that this began abruptly back in December of 2023. She is unable to identify any specific inciting incident. In addition to her neck pain she reports some diffuse pains in her right upper extremity. She states that she has numbness and tingling in the fingers of both hands as well. She is able to mitigate the numbness and tingling by pressing down on specific pressure points in her hand, which she states alleviates the symptoms. She does rate her pain as about an 8 or 9/10 constant throughout the day. Her pain worsens with positional changes. It alleviates with rest. She reports some issues with dexterity such as grasping things for prolonged periods of time, but denies any troubles with articulation. She has been evaluated by physiatry in the past, and had a few different prescription medications trialed by our colleagues at [facility]. She reports she has attempted agaz-anu-alixyqt NSAIDs, diclofenac gel, and Flexeril in the past. She also utilizes Vicks vapor rub quite frequently which he feels helps to alleviate her pain. She has been to physical therapy, last completing a course in March of 2024. PMH: Hypertension, type 2 diabetes (last A1c 7.6), fibromyalgia, asthma, hyperlipidemia, insomnia. Social hx: The patient reports smoking 3-5 cigarettes daily. She denies any other substance use. Medications: See [employer] list. Allergies: Insulin, penicillin, Tylenol, iodine, latex, metal (all). Physical exam: The patient is in a wheelchair for the duration of this examination. On examination the patient has a notable left-sided footdrop with her left-sided dorsiflexion at about 3/5. Her plantar flexion bilaterally is about 4/5. The rest of her lower extremity strength is 5/5. Her upper e xtremity strength is actually quite good, with her interossei and hand rn acute care at 4/5, and the rest of her upper extremity strength 5/5. (-) Salinas's, (-) clonus, (-) Tinel's at wrist bilaterally, (-) bilateral straight leg raise. Imaging review: MRI of the cervical spine completed here at [facility] shows multilevel cervical spondylosis with loss of normal cervical lordosis. There is mild-moderate right-sided foraminal stenosis at C4-5, mild central canal stenosis at C5-6, and mild-moderate left-sided foraminal stenosis at C6-7. There is no T2 signal change or evidence of myelomalacia. MRI of the lumbar spine also completed here at [facility] shows most notably a retrolisthesis at L2-3 with Modic endplate changes. Impression: Torrie is a pleasant 69-year-old female who comes in today with a chief complaint of predominantly posterior neck pain that is quite significant and causing her much distress throughout the day. She has some diffuse pains in her right upper extremity, and some numbness and tingling in her bilateral hands. On review of her cervical spine MRI it appears that she has some right- sided foraminal stenosis at C4-5 that could be contributing to the pain in her right arm. In the absence of T2 signal change or myelopathic reflexes, I do not believe that this is a situation that requires immediate surgery. In regards to her footdrop, I ended up reviewing her lumbar spine MRI even though she was sent here for a cervical spine evaluation. She does have a listhesis at L2-3 and has quite a bit of degeneration in her lumbar spine. We discussed the possibility of surgery to address her lower extremity symptoms, and discussed risks/benefits of surgery on her cervical spine. It does not appear that she is in a place right now where she is willing to consider surgery. She would prefer to pursue conservative treatments at this time. Thus, I will refer her to our colleagues in physiatry to evaluate her for potential cortisone injections. She was encouraged to return to see us if her symptoms worsen, or she does not obtain good relief from her injections. Thank you for allowing us to care for your patient. The total time spent with this visit with this patient was 50 minutes reviewing history, physical exam, MRI cervical and lumbar imaging review, and implementation of treatment plan or further diagnostic testing Tyler Varela MD,PhD [facility] Coding Level of Care Code New Pt Level 4 (08274) Diagnoses Cervicalgia M54.2
[2024-07-26 13:38] VITALS: BMI 27.3
--- OUTSIDE RECORDS SUMMARY | 2024-07-26 15:47 | XMS_ITS | Encounter Summary ---
Author Organization [employer] [facility] Address [address] [place] [address] Care Team Providers Care Wind Turbine Sheet Metal Worker Name Role Phone Juan R Blount MD Primary Care Provide r Reason for Visit * Reason Comments Med Refill Encounter Details Date Type Department Care Team (Late st Contact Info) Description 04/16/2024 Refill [facility] [address] [place], [place] [phone] Aggie Melendez MD [address] [place] [address] Primary insomnia Social History Tobacco Use Types Packs/Day Years Used Date Smoking Tobacco: Every Day Cigarettes Passive Smoke Exposure: Current Smokeless Tobacco: Never Alcohol Use Standard Drinks/Week Comments Never 0 (1 standard drink = 0.6 oz pur e alcohol) Depression Answer Date Recorded Patient Health Questionnaire-9 Score 3 01/15/2024 Patient Health Questionnaire-9 Score 3 01/15/2024 Last PHQ-9: Questionnaire Data Not on file 0 01/15/2024 Housing Stability Answer Date Recorded What is your housing situation today? I have oliver romero 01/13/[address] you li ve. Do you have problems with any of the following? None of the above 01/13/2024 Food Insecurity Answer Date Recorded Within the past 12 months, y ou worried that your food would run out before you got money to buy more: Never True 2023 Within the past 12 months,th e food you bought just didn't last and you didn't have enough money to get more: Sometimes True 01/15/2024 Transportation Answer Date Recorded In the past 12 months, has l ack of transportation kept you from medical appts, meetings, work or from getting things needed for daily living? No 01/13/2024 Utilities Answer Date Recorded In the past 12 months, has t he electric, gas, oil or water company threatened to shut off services in your home? No 01/13/2024 Depression Answer Date Recorded Patient Health Questionnaire-2 Score 1 01/15/2024 Internet Access Answer Date Recorded Internet Access Q1 I am not sure 01/15/2024 Internet Access Q2 Not on file 01/15/2024 Comments No Sex and Gender Information Value Date Recorded Sex Assigned at Female 02/18/2022 10:15 AM EDT Legal Sex Female 10:15 AM EDT Gender Identity Female 02/18/2022 10:15 AM EDT Sexual Orientation Straight 02/18/2022 10 :15 AM EDT documented as of this encounter Plan of Treatment Not on file documented as of this encounter Visit Diagnoses Diagnosis Primary insomnia Persistent disorder of initiating or maintaining sleep documented in this encounter Additional Health Concerns Assessment Noted Time PHQ-9 Depression Total Score: 3 01/15/20 24 1:38 PM EDT documented as of this encounter Care Teams Wind Turbine Sheet Metal Worker Relationship Specialty Start Date End Date Juan R Blount MD [address] [place] [address] PCP - General Internal Medicine 12/09/13 documented as of this encounter
--- OUTSIDE RECORDS SUMMARY | 2024-07-26 15:47 | XMS_ITS | Encounter Summary ---
Author Organization [employer] Address [address] [place] [address] Care Team Providers Care Digital Publishing Specialist Name Role Phone Juan R Blount MD Primary Care Provide r Encounter Details Date Type Department Care Team (Late st Contact Info) Description 05/16/2022 Orders Only [facility] [address] [place] [address] Luz Marina Zaragoza LPN Social History Tobacco Use Types Packs/Day Years Used Date Smoking Tobacco: Never Assessed Comments Unknown Sex and Gender Information Value Date Recorded Sex Assigned at Female 02/18/2022 10:15 AM EDT Legal Sex Female 10:15 AM EDT Gender Identity Female 02/18/2022 10:15 AM EDT Sexual Orientation Straight 02/18/2022 10 :15 AM EDT COVID-19 Exposure Response Date Recorded In the last 10 days, have yo u been in contact with someone who was confirmed or suspected to have Coronavirus/COVID-19? No / Unsure 04/29/2022 10:36 AM EST documented as of this encounter Plan of Treatment Not on file documented as of this encounter Procedures Procedure Name Priority Date/Time Associated Diagnosis Comments BI MAMMOGRAM DIAGNOSTIC TOMOSYNTHESIS LEFT Routine 05/28/2022 2:58 PM EST documented in this encounter Results * BI Mammogram Diagnostic Tomosynthesis Left (05/28/2022 2:58 PM EST) Anatomical Region Laterality Modality Breast Left Mammography 05/28/2022 2:58 PM EST Narrative 05/28/2022 4:46 PM EST ? [facility] ? [address] ?[place] [address] ? Mammography Report ? Signed ? Patient: Sy,Torrie ?MR#: [id number] ?? [id number] ? : 1955 ?Acct:[id number] ? Age/Sex: 67 / F ?ADM Date: 05/28/22 ? Loc: HO.MAMMO ? Attending Dr: Juan R Bey MD ? Ordering Physician: Juan R Bey MD ?Results: 3.6MProbably Benign Finding - Short 6 M F/U ?? Suggested ? Date of Service: 05/28/22 ?Follow Up: 6 Month F/U ? Procedure(s): MM tomosynthesis diagnostic LT ?? Accession Number(s): [id number] ? cc: Juan R Bey MD ? EXAMINATION: ?? MM DIAGNOSTIC DIGITAL BREAST TOMOSYNTHESIS, LEFT ? CLINICAL INFORMATION: ? Six-month follow-up left breast density. ? COMPARISON: ?? Mammography: 12/07/2021 and studies dating back to 03/28/2016. ? TECHNIQUE: ?? Digital breast tomosynthesis is performed in both the craniocaudal and ?? mediolateral oblique views along with computer-aided detection (CAD). ?? Synthesized 2D images are generated from the tomosynthesis. ? FINDINGS: ?? There are scattered areas of fibroglandular density (ACR BI-RADS breast ?? composition Category b). ? There is stable parenchymal pattern of the left breast with no new ?? abnormal dominant masses or suspicious grouping of microcalcifications. ?? There is a stable appearance of the well-circumscribed density about ?? the deep medial aspect measuring approximately 6 x 4 x 3 mm in size. ? Results are provided to the patient at time of visit by the ?? technologist. ? MM/MM tomosynthesis diagnostic LT ?? IMPRESSION: ?? There are no significant changes from prior study. ? ASSESSMENT: ? BI-RADS 3: Probably Benign ? RECOMMENDATION: ?? Diagnostic mammography in 6 months. ? This patient's information was entered into a reminder system with a ?? target due date for their next mammogram. ? Dictated By: ?Reggie Olvera MD ? Signed By: ?<Electronically signed by Reggie Olvera MD in OV> ?05/28/22 1643 ? DD/ 1458 ? TD/TT: ? Fiberglass Autobody Repairer: SK ? Procedure Note Donchela, Image - 05/28/2022 [facility] [address] [place] [address] Mammography Report Signed Patient: Torrie Sy#: [id number] : 5Acct:[id number] Age/Sex: 67 / FADM Date: 05/28/22 Loc: [facility] Attending Dr: Juan R Bey MD Ordering Physician: Juan R Bey MD Results: 3.6MProbably Benign Finding - Short 6 M F/U Suggested Date of Service: 05/28/22Follow Up: 6 Month F/U Procedure(s): MM tomosynthesis diagnostic LT Accession Number(s): [id number] cc: Juan R Bey MD EXAMINATION: MM DIAGNOSTIC DIGITAL BREAST TOMOSYNTHESIS, LEFT CLINICAL INFORMATION: Six-month follow-up left breast density. COMPARISON: Mammography: 12/07/2021 and studies dating back to 03/28/2016. TECHNIQUE: Digital breast tomosynthesis is performed in both the craniocaudal and mediolateral oblique views along with computer-aided detection (CAD). Synthesized 2D images are generated from the tomosynthesis. FINDINGS: There are scattered areas of fibroglandular density (ACR BI-RADS breast composition Category b). There is stable parenchymal pattern of the left breast with no new abnormal dominant masses or suspicious grouping of microcalcifications. There is a stable appearance of the well-circumscribed density about the deep medial aspect measuring approximately 6 x 4 x 3 mm in size. Results are provided to the patient at time of visit by the technologist. MM/MM tomosynthesis diagnostic LT IMPRESSION: There are no significant changes from prior study. ASSESSMENT: BI-RADS 3: Probably Benign RECOMMENDATION: Diagnostic mammography in 6 months. This patient's information was entered into a reminder system with a target due date for their next mammogram. Dictated By: Reggie Olvera MD Signed By: <Electronically signed by Reggie Olvera MD in OV> 05/28/22 1643 DD/ 1458 TD/TT: Fiberglass Autobody Repairer: SANTOS [facility] External Provider IMG BI PROCEDURES Edited Result - Final documented in this encounter Visit Diagnoses Not on filedocumented in this encounter Care Teams Digital Publishing Specialist Relationship Specialty Start Date End Date Juan R Blount MD [address] [place] [phone] PCP - General Internal Medicine 12/09/13 documented as of this encounter
--- OUTSIDE RECORDS SUMMARY | 2024-07-26 15:47 | XMS_ITS | Encounter Summary ---
Author Organization [employer] Address [address] [place] [address] Care Team Providers Care Slitter Operator Name Role Phone Juan R Blount MD Primary Care Provide r Reason for Visit * Reason Comments Med Refill Encounter Details Date Type Department Care Team (Late st Contact Info) Description 10/23/2023 Refill [facility] [address] [place], [place] [phone] Juan R Blount MD [address] [place], [place] [phone] Type 2 diabetes mellitus with hyperglycemia, with long-term current use of insulin ([facility]) Social History Tobacco Use Types Packs/Day Years Used Date Smoking Tobacco: Every Day Cigarettes Smokeless Tobacco: Never Alcohol Use Standard Drinks/Week Comments Never 0 (1 standard drink = 0.6 oz pur e alcohol) Depression Answer Date Recorded Patient Health Questionnaire-9 Score 8 11/19/2022 Housing Stability Answer Date Recorded What is your housing situation today? I have oliver romero 02/05/[address] you li ve. Do you have problems with any of the following? None of the above 02/05/2023 Food Insecurity Answer Date Recorded Within the past 12 months, y ou worried that your food would run out before you got money to buy more: Never True 02/05/2023 Within the past 12 months,th e food you bought just didn't last and you didn't have enough money to get more: Never True Transportation Answer Date Recorded In the past 12 months, has l ack of transportation kept you from medical appts, meetings, work or from getting things needed for daily living? No 02/05/2023 Utilities Answer Date Recorded In the past 12 months, has t he electric, gas, oil or water company threatened to shut off services in your home? No 02/05/2023 Depression Answer Date Recorded Patient Health Questionnaire-2 Score 2 11/19/2022 Comments No Sex and Gender Information Value Date Recorded Sex Assigned at Female 02/18/2022 10:15 AM EDT Legal Sex Female 10:15 AM EDT Gender Identity Female 02/18/2022 10:15 AM EDT Sexual Orientation Straight 02/18/2022 10 :15 AM EDT documented as of this encounter Plan of Treatment Not on file documented as of this encounter Visit Diagnoses Diagnosis Type 2 diabetes mellitus with hyperglycemia, with long-term current use of insulin ([facility]) documented in this encounter Additional Health Concerns Assessment Noted Time PHQ-9 Depression Total Score: 8 11/20/19 23 9:41 AM EDT documented as of this encounter Care Teams Slitter Operator Relationship Specialty Start Date End Date Juan R Blount MD [address] [place] [id number] PCP - General Internal Medicine 12/09/13 documented as of this encounter
--- OUTSIDE RECORDS SUMMARY | 2024-07-26 15:47 | XMS_ITS | Encounter Summary ---
Author Organization [employer] Address [address] [place] [address] Care Team Providers Care Diamond Cleaver Name Role Phone Juan R Blount MD Primary Care Provide r Reason for Visit * Reason Comments Med Refill Encounter Details Date Type Department Care Team (Late st Contact Info) Description 06/17/2024 Refill [facility] [address] [place], [place] [phone] Name, MD Fco [address] [place] [address] Mixed hyperlipidemia Social History Tobacco Use Types Packs/Day Years [...] as of this encounter Visit Diagnoses Diagnosis Mixed hyperlipidemia documented in this encounter Additional Health Concerns Assessment Noted Time PHQ-9 Depression Total Score: 3 01/15/20 24 1:38 PM EDT documented as of this encounter Care Teams Diamond Cleaver Relationship Specialty Start Date End Date Juan R Blount MD [address] [place] [address] PCP - General Internal Medicine 12/09/13 documented as of this encounter
--- OUTSIDE RECORDS SUMMARY | 2024-07-26 15:48 | XMS_ITS | Patient Health Record ---
Author Organization [facility] Address [address] [place] [address] Care Team Providers Care Facilities Coordinator Name Role Phone Angelito Vega MD, Juan R Primary Care Provide r Caden Berry [phone] Reason For Referral No Information Encounters Encounter Location Date Provider Diagnosis [facility] [address] [place] [address] 05/24/2024 Caden Huffman Plan Of Treatment Next Appt Details Provider Name:Caden Huffman , 09/28/2024 10:10:00 AM, [address], [address], [place], [address], Insurance Providers Payer Name Payer Address Payer Phone Subscriber Number Group Number Insured Name Patient Relationship to Insured Coverage Start Date Coverage End Date [facility] [address] [place] [phone] [id number] MERCEDES BRUSH Self - patient is the insured
--- OUTSIDE RECORDS SUMMARY | 2024-07-26 15:48 | XMS_ITS | Encounter Summary ---
Author Organization [employer] Address [address] [facility] [address] [place] [address] Care Team Providers Care Manager Energy Name Role Phone Juan R Blount MD Primary Care Provide r Reason for Visit * Reason Onset Date Comments Med Refill 12/03/2022 Encounter Details Date Type Department Care Team ([facility] st Contact Info) Description 12/03/2022 Refill [facility] MEDICINE [address] [place] [address] Juan R Blount MD [address] [place] [address] Asthma, unspecified asthma severity, unspecified whether complicated, unspecified whether persistent Social History Tobacco Use Types Packs/Day Years Used Date Smoking Tobacco: Every Day Cigarettes Smokeless Tobacco: Never Alcohol Use Standard Drinks/Week Comments Never 0 (1 standard drink = 0.6 oz pur e alcohol) Depression Answer Date Recorded Patient Health Questionnaire-9 Score 8 11/19/2022 Depression Answer Date Recorded Patient Health Questionnaire-2 Score 2 11/19/2022 Comments No Sex and Gender Information Value Date Recorded Sex Assigned at Female 02/18/2022 10:15 AM EDT Legal Sex Female 10:15 AM EDT Gender Identity Female 02/18/2022 10:15 AM EDT Sexual Orientation Straight 02/18/2022 10 :15 AM EDT documented as of this encounter Miscellaneous Notes * Telephone Encounter - Jelena Osorio - 12/03/2022 1:26 PM EDT Tc from pt requesting med refill for medication albuterol (Ventolin HFA) 108 (90 Base) MCG/ACT inhaler. documented in this encounter Plan of Treatment Not on file documented as of this encounter Visit Diagnoses Diagnosis Asthma, unspecified asthma severity, unspecified whether complicated, unspecified whether persistent documented in this encounter Additional Health Concerns Assessment Noted Time PHQ-9 Depression Total Score: 8 11/20/19 23 9:41 AM EDT documented as of this encounter Care Teams Manager Energy Relationship Specialty Start Date End Date Juan R Blount MD [address] [place] [id number] PCP - General Internal Medicine 12/09/13 documented as of this encounter
--- OUTSIDE RECORDS SUMMARY | 2024-07-26 15:48 | XMS_ITS | Encounter Summary ---
Author Organization [employer] Address [address] [facility] [address] [place] [address] Care Team Providers Care Commercial Lending Vice President Name Role Phone Juan R Blount MD Primary Care Provide r Reason for Visit * Reason Comments Med Refill Encounter Details Date Type Department Care Team (Late st Contact Info) Description 06/27/2023 Refill [facility] MED & PEDS [address] [place] [address] Aggie Guan MD [address] [place] [address] Primary insomnia Social History Tobacco Use Types Packs/Day Years Used Date Smoking Tobacco: Every Day Cigarettes Smokeless Tobacco: Never Alcohol Use Standard Drinks/Week Comments Never 0 (1 standard drink = 0.6 oz pur e alcohol) Depression Answer Date Recorded Patient Health Questionnaire-9 Score 8 11/19/2022 Housing Stability Answer Date Recorded What is your housing situation today? I have oliver heather 02/05/[address] you li [...] documented as of this encounter Care Teams Commercial Lending Vice President Relationship Specialty Start Date End Date Juan R Blount MD [address] [place] [address] PCP - General Internal Medicine 12/09/13 documented as of this encounter
--- OUTSIDE RECORDS SUMMARY | 2024-07-26 15:48 | XMS_ITS | Clinical Summary ---
Author Organization [employer] Address [address] [facility] [facility] [address] [place] [address] Care Team Providers Care Phlebotomist Associate Name Role Phone Juan R Blount MD Primary Care Provide r Allergies Active Allergy Reactions Criticality Noted Date Comments Kurt Inhibitors Cough Acetaminophen Other reaction(s): rash Albuterol Other reaction(s): rash Insulin Other reaction(s): rash Iodine Other reaction(s): rash Latex Other reaction(s): unspecified Medroxyprogesterone Other reaction(s): rash Penicillin V Rash Low 01/07/2024 Medications Continuous Blood Gluc Automobile 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 1 each 023 Active Continuous Blood Gluc Sensor (FreeStyle Crystal 2 Sensor) miscIndications: Type 2 diabetes mellitus with hyperglycemia, with long-term current use of insulin (CMS/[facility]) 1 Device before breakfast, before lunch, and before evening meal. 2 each 023 Active Trulicity 4.5 MG/0.5ML solution pen-injectorIndi cations:Type 2 diabetes mellitus with hyperglycemia, with long-term current use of insulin (CMS/HCC) INJECT ONE PEN (= 4.5MG) SUBCUTANEOUSLY ONCE A WEEK DIRECTED 2 mL 024 Active econazole nitrate 1 % cream APPLY TOPICALLY TO AFFECTED AREA(S) TWICE DAILY 30 g 1 Active hydrocortisone 2.5 % cream APPLY TOPICALLY TO AFFECTED AREA(S) TWICE DAILY 30 g 1 Active alendronate (Fosamax) 70 MG tablet Take 1 tablet by mouth every 7 (seven) days. with 6 to 8 oz of water 30 min before first food of day. do not lie down for 30 minutes Active nicotine (Nicoderm, Step 1) 21 MG/24HR patch APPLY 1 PATCH TOPICALLY TO THE SKIN IN THE MORNING DO NOT SMOKE WHILE USING PATCH Active oxybutynin XL (Ditropan-XL) 10 MG 24 hr tablet Take 1 tablet by mouth Once per day. Active traMADol (Ultram) 50 MG tablet Take 2 tablets by mouth if needed in the morning and at bedtime for moderate pain. Active clotrimazole (Lotrimin) 1 % cream APPLY TOPICALLY TWICE DAILY FOR 28 DAYS 30 g 5 024 Active Tresiba FlexTouch 200 UNIT/ML injection INJECT 60 UNITS SUBCUTANEOUSLY AT BEDTIME 9 mL 6 Active Incruse Ellipta 62.5 MCG/ACT aerosol powderIndication s:Wheeze INHALE 1 PUFF BY MOUTH EVERY DAY AT THE SAME TIME RINSE MOUTH AFTER USING 30 each 3 024 Active losartan (Cozaar) 100 MG tabletIndication s:Primary hypertension TAKE 1 TABLET BY MOUTH EVERY MORNING 90 tablet 3 025 Active Aspirin Low Dose 81 MG EC tabletIndication s:Type 2 diabetes mellitus with hyperglycemia, with long-term current use of insulin ([facility]) TAKE 1 TABLET BY MOUTH EVERY MORNING 90 tablet 3 025 Active amLODIPine (Norvasc) 5 MG tabletIndication s:Essential hypertension TAKE 1 TABLET BY MOUTH EVERY EVENING 90 tablet 3 025 Active atenolol (Tenormin) 25 MG tabletIndication s:Essential hypertension TAKE 1/2 TABLET BY MOUTH TWICE DAILY IN THE MORNING AND EVENING 90 tablet 1 025 Active albuterol (Ventolin HFA) 108 (90 Base) MCG/ACT inhalerIndicatio ns:Asthma, unspecified asthma severity, unspecified whether complicated, unspecified whether persistent INHALE 2 PUFFS BY MOUTH EVERY 4 TO 6 HOURS NEEDED 18 g 1 025 Active montelukast (Singulair) 10 MG tabletIndication s:Wheezing TAKE 1 TABLET BY MOUTH EVERY EVENING 90 tablet 1 025 Active atorvastatin (Lipitor) 40 MG tabletIndication s:Mixed hyperlipidemia TAKE 1 TABLET BY MOUTH AT BEDTIME 90 tablet 1 025 Active zolpidem (Ambien) 10 MG tabletIndication s:Primary insomnia TAKE 1 TABLET BY MOUTH AT BEDTIME NEEDED FOR SLEEP 30 tablet 025 Active BD Pen Needle Janene U/F 32G X 4 MM miscIndications: Type 2 diabetes mellitus without complication, with long-term current use of insulin ([facility]) USE DIRECTED FOUR TIMES DAILY 100 each 5 025 Active gabapentin (Neurontin) 800 MG tabletIndication s:Type 2 diabetes mellitus with hyperglycemia, with long-term current use of insulin ([facility]) TAKE 1 TABLET BY MOUTH THREE TIMES DAILY IN THE MORNING, AT NOON, AND IN THE EVENING 90 tablet 2 025 Active TRUEplus Lancets 33G miscIndications: Type 2 diabetes mellitus with hyperglycemia (CMS/HCC),detention (current) use of insulin ([facility]) TEST BLOOD SUGAR FOUR TIMES DAILY 300 each 025 Active glucose blood (FREESTYLE LITE) test stripIndications :Type 2 diabetes mellitus with hyperglycemia (CMS/HCC),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 ([facility]) TEST BLOOD SUGAR FOUR TIMES DAILY 300 strip 025 Active NovoLOG FLEXPEN 100 UNIT/ML pen INJECT 17 UNITS SUBCUTANEOUSLY THREE TIMES DAILY DIRECTED 15 mL 025 Active FREESTYLE LITE test stripIndications :Type 2 diabetes mellitus with hyperglycemia (CMS/HCC),detention (current) use of insulin ([facility]) TEST BLOOD SUGAR FOUR TIMES DAILY 300 strip 024 2024 Discontinued(R sung (will not trigger notification to Pharmacy)) TRUEplus Lancets 33G miscIndications: Type 2 diabetes mellitus with hyperglycemia (CMS/HCC),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 ([facility]) TEST BLOOD SUGAR FOUR TIMES DAILY 300 each 024 2024 Discontinued(R eorder (will not trigger notification to Pharmacy)) Pentips 32G X 4 MM miscIndications: Type 2 diabetes mellitus without complication, with long-term current use of insulin (CMS/HCC) USE FOUR TIMES DAILY DIRECTED 100 each 5 024 2024 Discontinued gabapentin (Neurontin) 800 MG tabletIndication s:Type 2 diabetes mellitus with hyperglycemia, with long-term current use of insulin (CMS/HCC) TAKE 1 TABLET BY MOUTH THREE TIMES DAILY IN THE MORNING, AT NOON, AND IN THE EVENING 90 tablet 2 024 2024 Discontinued zolpidem (Ambien) 10 MG tabletIndication s:Primary insomnia TAKE 1 TABLET BY MOUTH EVERY DAY AT BEDTIME NEEDED FOR SLEEP 30 tablet 025 2024 Discontinued NovoLOG FLEXPEN 100 UNIT/ML pen INJECT 17 UNITS SUBCUTANEOUSLY THREE TIMES DAILY DIRECTED 15 mL 1 025 2024 Discontinued Active Problems Problem Noted Date Diagnosed Date Right thyroid nodule 01/15/2024 Assessment & Plan (01/15/2024 1:34 PM EDT): While undergoing a Carotid US. Pt had an incidental finding 12/27/2023 /US carotid duplex BI IMPRESSION: 3. Right thyroid nodule measuring 3.1 cm. Recommend further attenuation with nonemergent thyroid ultrasound Plan: Thyroid US ordered. Follow up pending result. Hospital discharge follow-up 01/15/2024 Assessment & Plan (01/15/2024 1:39 PM EDT): Patient was admitted to [facility] from 12/26-12/28/2023 For evaluation of intermittent right arm weakness x 3 days and severe neck pain. Admitted for observation for concern of TIA vs CVA. Neuro checks done with no reported aphasia or speech problem. MRI negative for acute stroke. Seen by neurology and plan for outpatient EMG nerve conduction study. Plan: MRI Cervical Spine to rule out Cervical radiculopathy Neck pain on right side 01/15/2024 Assessment & Plan (01/15/2024 3:22 PM EDT): Patient with complaints of intermittent right arm weakness x 3 days and severe neck pain. MRI of brain negative for acute stroke. Seen by neurology and plan for outpatient EMG nerve conduction study. Symptoms suggestive of cervical radiculopathy Plan: Plain films of C-spine, MRI C spine, NCS Abnormal mammogram 01/15/2024 Assessment & Plan (01/15/2024 3:27 PM EDT): Mammogram 01/13/2024 Developing Focal asymmetry in the upper outer quadrant posterior depth with associated architectural distortion. Birads 0 Radiologist recommended additional views with targeted US Pts son and pt advised the importance on following up with additional images and US Weakness of right lower extremity 01/15/2024 Assessment & Plan (01/15/2024 3:24 PM EDT): Patient with new onset of right sided lower extremity weakness. Evaluated in the ER MRI Brain 12/28/[address] [facility] Etiology ? Neuropathy, Lumbar radiculopathy Pt also c/o right sided low back pain Plan: Plain films Lumbar, hip and knee NCS LE MR Lumbar spine Follow up after initial testing Acute right-sided low back pain without sciatica 01/15/2024 Assessment & Plan (01/15/2024 3:28 PM EDT): Patient c/o right sided low back pain associated with right LE weakness for at least a couple of months. Pt reports multiple falls as a result and now requires help with ambulation and is requesting a wheelchair to increase her independence. Plan: Plain films Lumbar spine, MRI and NCS to rule out radiculopathy VS neuropathy given LE weakness Declines PT Preventative health care 11/19/2022 Assessment & Plan (01/15/2024 3:30 PM EDT): Mammogram: Birads 3 05/28/2022 6 month follow up recommended Mammogram 01/13/2024 Developing Focal asymmetry in the upper outer quadrant posterior depth with associated architectural distortion. Birads 0 Radiologist recommended additional views with targeted US Pap Smear: 12/02/2022 NL, Colonoscopy: 08/29/2008. Referred to GI for repeat, seen in 2021. Pt today tells me she missed the appointment for the colonoscopy. I have referred back again today Vaccines: refused Flu shot. Dexa scan: 08/31/2012. Assessment & Plan (11/19/2022 10:01 AM EDT): Mammogram: Birads 3 05/28/2022 6 month follow up recommended Pap Smear: 07/13/2017 NL, Will refer to Siri Barragan Colonoscopy: 08/29/2008. Referred to GI for repeat, seen in 2021 Vaccines: refused Flu shot. Dexa scan: 08/31/2012. Smoker 11/19/2022 Pulmonary nodules 11/19/2022 Assessment & Plan (11/19/2022 10:03 AM EDT): Seen on previous CT Will repeat Class 1 obesity due to exces s calories with serious comorbidity and body mass index (BMI) of 31.0 to 31.9 in adult 11/19/2022 Assessment & Plan (11/19/2022 10:06 AM EDT): Patient has been counseled and educated about diet and exercise. Personal goal of weight loss discussedPatient has comorbidity of:Patient has comorbidity of: DM, HTN Cystitis 11/19/2022 Assessment & Plan (11/19/2022 10:13 AM EDT): Pt diagnosed with cystitis follicularis Under the care of Urology Falls frequently 11/19/2022 Assessment & Plan (11/19/2022 10:17 AM EDT): Pt with c/o frequent falls Neuro exam no red flags Plan: PT eval Carpal tunnel syndrome 11/06/2022 Assessment & Plan (11/19/2022 9:53 AM EDT): Diagnosed 10/17/2021 at Rheumatology office Splinting at night Urinary incontinence 09/12/2017 Moderate persistent asthma 01/09/2016 Assessment & Plan (11/19/2022 9:55 AM EDT): Pt here for a f/u no recent exacerbation Unfortunately continues to smoke and is still not receptive to the idea of quitting. She is currently on Incruse Ellipta 62.5 mcg/inh 1 puff BID and Pro-air MDI 1 to 2 puffs qid. In the chart there is ? of rash associated with Proventil. Pt states that when she uses the Pro-air she does not. CT Chest done on 01/22/2016 showed: Bronchial wall thickening, peribronchial nodules and opacities and some bronchial soft tissue opacification suggestive of bronchitis/airways Disease. There are several separate right upper lobe nodules not adjacent areas of airways disease and chest CT follow-up is recommended. If patient is high risk, i.e. smoking history or known history of malignancy, 6-12 and 18-[address] follow-up would be recommended. If the patient is low risk i.e. nonsmoker the no history of malignancy, chest CT follow-up in one year would be recommended. Pt is now under the care of Setter Up Dr Holm last seen 05/11/2019 He ordered a repeat Chest CT and f/u with him in 3 months Disseminated idiopathic skeletal hyperostosis Fibromyalgia 05/10/2014 Assessment & Plan (11/19/2022 9:57 AM EDT): Pt is stable Reports good and bad days Seeing Rheumatology Takes tramadol, Flexeril and Gabapentin 800 mg po TID Chronic dermatitis 06/11/2012 Hypertension 06/11/2012 Assessment & Plan (01/15/2024 1:43 PM EDT): Pt here for a f/u BP controlled on a regimen of: Amlodipine 5 mg po daily Losartan 100mg po daily and Atenolol off Hctz due to worsening renal function. She developed a cough due to KURT inhibitors. Most recent electrolytes, Bun and Creatinine done on: 12/27/2023 were wnl patient advised to adhere to a low sodium diet, encouraged about medication compliance, counseled about weight loss. f/u 3 months Assessment & Plan (11/19/2022 9:52 AM EDT): Pt here for a f/u BP controlled on a regimen of: Amlodipine 5 mg po daily Losartan 100mg po daily and Atenolol off Hctz due to worsening renal function. She developed a cough due to KURT inhibitors. Most recent electrolytes, Bun and Creatinine done on: 03/25/2022 were wnl patient advised to adhere to a low sodium diet, encouraged about medication compliance, counseled about weight loss. f/u 3 months Diabetes mellitus, type II 06/11/2012 Assessment & Plan (01/15/2024 3:27 PM EDT): Pt here for a f/u DM poorly controlled No longer under the care of Endocrinology last seen 08/29/2021 She is supposed to be on a regimen of: Tresiba 60 units sq at PM and Novolog 20 unts with meals as well as Trulicity 4.5 mg once a week She is Off Metformin due to worsening renal function Hgb A1c 01/15/2024 12.6 from 9.7 Did not bring Glucometer today Eye exam was last done on: 08/2022 [facility] No retinopathy Microalbumin checked on: 07/24/2021 was: 123 Pt is on an ARB. Foot check not done Pt reports compliance with Asa 81 mg po daily Pt advised to: adhere to diabetic diet Referred back to endocrinology No adjustments until she brings her glucometer check your blood sugars regularly check your feet on a daily basis Assessment & Plan (11/19/2022 10:10 AM EDT): Pt here for a f/u after a long hiatus No longer under the care of Endocrinology last seen 08/29/2021 She is on a regimen of: Tresiba 60 units sq at PM and Novolog 20 unts with meals as well as Trulicity recently increased to 4.5 mg once a week She is Off Metformin due to worsening renal function Hgb A1c 11/13/2021 was 9.7 Glucometer today average 186 3 month f/u Eye exam was last done on: 02/20/2017 Microalbumin checked on: 07/07/2020 was: 32 Pt is on an ARB. Foot check not done Pt reports compliance with Asa 81 mg po daily Pt advised to: adhere to diabetic diet check your blood sugars regularly check your feet on a daily basis Depressive disorder 06/11/2012 Assessment & Plan (11/19/2022 9:53 AM EDT): Pt here for a f/u Is seeing a psychotherapist Sims On a regimen of Ambien 10mg po qhs prescribed by me Patient denies any suicidal ideation or thoughts, Patient has crisis numbers and knows to use them if needed Encounters Date Type Department Care Team Description 07/22/2024 Refill [facility] [address] [place] [address] Juan R Blount MD 07/16/2024 Refill [facility] [address] [place] [address] Juan R Blount MD Type 2 diabetes mellitus with hyperglycemia, with long-term current use of insulin ([facility]); Type 2 diabetes mellitus with hyperglycemia (CMS/HCC); 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 (CMS/HCC) 07/14/2024 Telephone [facility] [address] [place] [address] Juan R Blount MD DME from [facility] 07/12/2024 Telephone [facility] [address] [place] [address] Juan R Blount MD Durable Medical Equipment 07/11/2024 Refill [facility] [address], [place] [phone] Juan R Blount MD Type 2 diabetes mellitus without complication, with long-term current use of insulin (CMS/HCC) 07/05/2024 Telephone [facility] [address] [place], [place] [phone] Juan R Blount MD [employer] [facility] [employer] (Pad, incont prevail lng max) 07/02/2024 Refill [facility] [address], [place] [phone] Sadia Membreno MD Primary insomnia 06/22/2024 Telephone [facility] [address] [place], [place] [phone] Juliana Goode, RN Results 06/21/2024 Orders Only [facility] [address] [place] [address] [phone] Juan R Blount MD Lumbar radiculopathy (Primary Dx) 06/17/2024 Refill [facility] [address] [place] [address] Name, MD Fco Mixed hyperlipidemia 06/17/2024 Refill [facility] [address] [place] [address] Name, MD Fco Mixed hyperlipidemia 06/17/2024 Refill [facility] [address] [place] [address] Juan R Blount MD Wheezing; Mixed hyperlipidemia 05/31/2024 Refill [facility] [address] [place] [address] Name, MD Fco 05/27/2024 Refill [facility] [address], [place] [phone] Juan R Blount MD Primary insomnia 05/24/2024 Refill [facility] [address] [place] [address] Juan R Blount MD Asthma, unspecified asthma severity, unspecified whether complicated, unspecified whether persistent 05/23/2024 Refill [facility] [address] [place] [address] Juan R Blount MD Essential hypertension; Asthma, unspecified asthma severity, unspecified whether complicated, unspecified whether persistent 05/14/2024 Orders Only GENERIC EXTERNAL DATA DEPARTMENT Provider, Generic External Data 04/28/2024 Orders Only GENERIC EXTERNAL DATA DEPARTMENT Provider, Generic External Data 04/27/2024 Refill [facility] [address] [place] [address] Aggie Melendez MD Primary insomnia 04/27/2024 Telephone [facility] [address] [place], [place] [phone] Juan R Blount MD DME [facility] from Last 3 Months Immunizations Name Administration Dates Next Due Pfizer Covid-19 Vaccine 12+ Bivalent 04/29/2022 Pneumococcal Polysaccharide PPSV23 02/16/2003 TD (adult), 2 Lf tetanus tox oid, preservative free, adsorbed 07/13/2002 Social History Tobacco Use Types Packs/Day Years Used Date Smoking Tobacco: Every Day Cigarettes Passive Smoke Exposure: Current Smokeless Tobacco: Never Tobacco Cessation:Ready to Q uit: Not Asked; Counseling Given: Not Answered Alcohol Use Standard Drinks/Week Comments Never 0 [...] Orientation Straight 02/18/2022 10 :15 AM EDT Last Filed Vital Signs Vital Sign Reading Time Taken Comments Blood Pressure 134/68 01/15/2024 1:36 PM EDT Pulse 86 01/15/2024 1:36 PM EDT Temperature 36.4 ??C (97.5 ??F) 01/15/2024 1:36 PM ED T Respiratory Rate 20 01/15/2024 1:36 PM EDT Oxygen Saturation 95% 01/15/2024 1:36 PM EDT Inhaled Oxygen Concentration - - Weight 80.3 kg (177 lb) 01/15/2024 1:36 PM EDT Height 167.6 cm (5' 6 ) 01/15/2024 1:36 PM EDT Body Mass Index 28.57 01/15/2024 1:36 PM EDT Plan of Treatment Health Maintenance Due Date Last Done Comments CT Colonography 1955 Colonoscopy 1955 Colorectal Cancer Screening 1955 FIT DNA/Cologuard 1955 FIT 1955 FOBT 1955 Sigmoidoscopy 1955 Diabetes: Foot Exam 1965 Eye Exam 1965 Alcohol/Substance Use Screening 1967 DTaP/Tdap/Td Vaccines (1 - Tdap) 07/14/2002 07/13/2002 Pneumococcal Vaccine: 50+ Years (2 of 2 - PCV) 02/17/2004 02/16/2003 Zoster Vaccines (1 of 2) 2005 RSV Patients and Patients Aged 60 years or older (1 - Risk 60-74 years 1-dose series) 2015 Lipid Panel 07/24/2022 07/24/2021, 07/07/2020 COVID-19 Vaccine ( season) 2023 04/29/2022, 12/11/2021, 07/11/2021, Additional history exists Influenza Vaccine (#1) 2023 Diabetes: Hemoglobin A1C 04/15/2024 024, 11/06/2022, 07/24/2021, Additional history exists Diagnostic Breast Imaging 08/31/20242023, 12/30/2022, 12/30/2022, Additional history exists Mammogram 08/31/2024 03/03/2024, 12/20, 12/30/2022, Additional history exists Depression Screening 01/14/2025 01/15/2024, 01/15/20 24 SDOH Screening 01/14/2025 01/15/2024 Tobacco Screening 01/14/2025 01/15/2024 Diabetes: Urine Protein Screening 02/02/2025 02/03/2024, 07/24/2021, 07/25/2020, Additional history exists Hepatitis C Screening Completed 02/05/2024 HIB Vaccines Aged Out No longer eligi ble based on patient's age to complete this topic HPV Vaccines Aged Out No longer eligi ble based on patient's age to complete this topic Hepatitis A Vaccines Aged Out No long er eligible based on patient's age to complete this topic Hepatitis B Vaccines Aged Out No long er eligible based on patient's age to complete this topic IPV Vaccines Aged Out No longer eligi ble based on patient's age to complete this topic Meningococcal Vaccine Aged Out No richard sandy eligible based on patient's age to complete this topic RSV under 20 months Aged Out No longe r eligible based on patient's age to complete this topic Rotavirus Vaccines Aged Out No longer eligible based on patient's age to complete this topic Procedures Procedure Name Priority Date/Time Associated Diagnosis Comments GLUCOSE, WHOLE BLOOD Routine 05/14/2024 10:23 AM EST FL GUIDED LUMBAR PUNCTURE LP Routine 04/28/2024 12:00 PM EST OLIGOCLONAL BANDING Routine 04/28/2024 1 1:41 AM EST IGG SYNTHESIS RATE/INDEX, CSF Routine 04/28/2024 11:41 AM EST CSF CELL COUNT WITH DIFFERENTIAL Routine 04/28/2024 11:41 AM EST TOTAL PROTEIN CSF Routine 04/28/2024 11: 41 AM EST GLUCOSE, CSF Routine 04/28/2024 11:41 AM EST GRAM STAIN Routine 04/28/2024 11:41 AM EST GLUCOSE, WHOLE BLOOD Routine 04/28/2024 9:34 AM EST BI US BREAST LIMITED BILATERAL Routine 03/03/2024 1:30 PM EST HEPATITIS PANEL, GENERAL Routine 02/05/2024 9:25 AM EDT ALBUMIN, RANDOM URINE W/CREATININE Routine 02/03/2024 11:35 AM EDT POCT GLYCATED HEMOGLOBIN, TOTAL Routine 01/15/2024 2:21 PM EDT Type 2 diabetes mellitus without complication, with long-term current use of insulin (CMS/HCC) ZZZ HISTORICAL LIPID PANEL Routine 07/24/2021 9:38 AM EDT from Last 3 Months or Most Recently Relevant to Health Maintenance Results * (ABNORMAL) Glucose, Whole Blood (05/14/2024 10:23 AM EST) Glucose, Whole Blood 190(H) 60 - 115 mg/dL [facility] Comment:METER #: [id number] Testing performed in the Endocrinology Department [address] , [address], [facility]. 05/14/2024 10:2 3 AM EST 05/14/2024 10:27 AM EST us Generic External Data Provider LAB BLOOD ORDERAB LES Final Result Performing Organization Address City/State/RUST Co de Phone Number [facility] [address] [place] [phone] * FL guided lumbar puncture LP (04/28/2024 12:00 PM EST) Anatomical Region Laterality Modality Abdomen Radiographic Deneen ging 04/28/2024 12:0 0 PM EST Narrative 04/30/2024 3:19 PM EST ? [facility] ?[address] ?[place] [address] ? Fluoroscopy Report ? Signed ? Patient: Sy,Torrie ?MR#: [id number] ?? [id number] ? : 1955 ?Acct:[id number] ? Age/Sex: 69 / F ?ADM Date: //25 ? Loc: HO.SSS ? Attending Dr: Artis Cobb MD ? Ordering Physician: Artis Cobb MD ?? Date of Service: 04/28/24 ?? Procedure(s): FL guided lumbar puncture LP ?? Accession Number(s): [id number] ? cc: Juan R Bey MD; Artis Cobb MD ? FLUOROSCOPIC LUMBAR PUNCTURE ? Indication: Chronic inflammatory demyelinating polyneuropathy ? Risks and benefits and possible complications were discussed with the ?? patient and the consent form was signed. Patient was placed prone on ?? the fluoroscopy table. The back was prepped and draped in routine ?? sterile fashion. Alcohol was used as a skin antiseptic. Utilizing ?? fluoroscopic guidance, the L5-S1 interlaminar space was accessed with a ?? 22 gague Felipe spinal needle and clear CSF fluid was observed from ?? the needle hub, however, flow was extremely slow despite multiple ?? attempts to reposition the needle. The needle was, therefore, removed. ?? Next, the L3-L4 interspace was accessed with a 22-gauge Felipe spinal ?? needle and clear CSF was obtained. Opening pressure was 11 cm H2O in ?? the left lateral decubitus position. A total of 8 cc of clear CSF was ?? removed and sent for analysis. The needle was removed without immediate ?? complications. ? Total fluoroscopy time: 2.1 min ? FL/FL guided lumbar puncture LP ?? Impression: Successful fluoroscopic guided lumbar puncture at L3-L4. ? This procedure was performed by Dmitry Babin PA-C and supervised by ?? Conrad. ? Electronically signed by: ??Urbano Martines MD ??04/30/2024 03:16 PM EST RP ?? Workstation: [id number] ? Dictated By: ?Dmitry Babin ? Signed By: ?<Electronically signed by Dmitry Babin in OV> ? 04/30/24 1516 ?<Electronically signed by Urbano Martines MD in OV> ? 04/30/24 1519 ? DD/ 1200 ? TD/TT: 04/28/24 1230 ? Cigarette Paper Tester: ? Procedure Note Deepthi, Image - 04/30/2024 [id number] [place] [address] Fluoroscopy Report Signed Patient: WinncristhianMR#: [id number] : 5Acct:[id number] Age/Sex: 69 / FADM Date: 04/28/24 Loc: HO[facility] Attending Dr: Artis Cobb MD Ordering Physician: Artis Cobb MD Date of Service: 04/28/24 Procedure(s): FL guided lumbar puncture LP Accession Number(s): [id number] cc: Juan R Bey MD; Artis Cobb MD FLUOROSCOPIC LUMBAR PUNCTURE Indication: Chronic inflammatory demyelinating polyneuropathy Risks and benefits and possible complications were discussed with the patient and the consent form was signed. Patient was placed prone on the fluoroscopy table. The back was prepped and draped in routine sterile fashion. Alcohol was used as a skin antiseptic. Utilizing fluoroscopic guidance, the L5-S1 interlaminar space was accessed with a 22 gague Felipe spinal needle and clear CSF fluid was observed from the needle hub, however, flow was extremely slow despite multiple attempts to reposition the needle. The needle was, therefore, removed. Next, the L3-L4 interspace was accessed with a 22-gauge Felipe spinal needle and clear CSF was obtained. Opening pressure was 11 cm H2O in the left lateral decubitus position. A total of 8 cc of clear CSF was removed and sent for analysis. The needle was removed without immediate complications. Total fluoroscopy time: 2.1 min FL/FL guided lumbar puncture LP Impression: Successful fluoroscopic guided lumbar puncture at L3-L4. This procedure was performed by Dmitry Babin PA-C and supervised by Dr. Martines. Electronically signed by: Urbano Martines MD 04/30/2024 03:16 PM [facility] Workstation: [id number] Dictated By: Dmitry Babin Signed By: <Electronically signed by Dmitry Babin in OV> 04/30/24 1516 <Electronically signed by Urbano Martines MD in OV> 04/30/24 1519 DD/ 1200 TD/TT: 04/28/24 1230 Cigarette Paper Tester: [facility] External Provider IMG FLU OROSCOPY PROCEDURES Final Result * (ABNORMAL) Total Protein CSF (04/28/2024 11:41 AM EST) Total Protein CSF 64.0(H) 15 - 45 mg/dL [facility] 04/28/2024 11:4 1 AM EST 04/28/2024 12:27 PM EST Generic External Data Provider LAB BODY FLUIDS A ND STOOLS ORDERABLES Final Result Performing Organization Address [facility] de Phone Number [facility] [address] [place] [phone] * Oligoclonal banding (04/28/2024 11:41 AM EST) Oligoclonal Bands (IgG), CSF Absent Absent [facility] Comment:No Oligoclonal bands are identified in the patient'sCSF when compared to the corresponding serum sample.Oligoclonal bands are present in the CSF of more than85% of patients with clinically definite multiplesclerosis (MS). To distinguish between oligoclonalbands in the CSF due to a peripheral gammopathy andoligoclonal bands due to local production in the JOB CAPTAIN,serum and CSF should be tested simultaneously.Oligoclonal bands can however be observed in a varietyof other diseases, e.g., subacute sclerosing panen-cephalitis, inflammatory polyneuropathy, JOB CAPTAIN lupus,and brain tumors and infarctions. The clinicalsignificance of a numerical band count, determinedby isoelectric focusing, has not been definitivelydefined. The data should be interpreted in conjunctionwith all pertinent clinical and laboratory data forthis patient.THIS TEST WAS PERFORMED AT:[employer]/[id number] [place] [address]MVSEAAKSANDEEP ROMANO MD,PHD 04/28/2024 11:4 1 AM EST 04/28/2024 12:27 PM EST us Generic External Data Provider LAB BLOOD ORDERAB LES Final Result Performing Organization Address [facility] [facility] de Phone Number [facility] [address] [place] [phone] * (ABNORMAL) IgG Synthesis Rate/Index, CSF (04/28/2024 11:41 AM EST) Albumin 3.2(A) 3.6 - 5.1 g/dL [facility] Comment:THIS TEST WAS PERFOR MED AT:[employer]/[facility]Y14[facility] [place] [address]IFYDFCUSANDEEP ROMANO MD,PHD Immunoglobulin G 979 600 - 1540 mg/dL [facility] IgG, CSF 6.4 0.8 - 7.7 mg/dL [facility] Albumin, CSF 34.7 8.0 - 42.0 mg/dL [facility] IgG Index, CSF 0.60 <0.70 [facility] Comment:The IgG Synthesis ra te, CSF and IgG index, CSF are twoformulae for estimating the amount of IgG produced inthe central nervous system. Evidence of increasedsynthesis of IgG provides support for the diagnosis ofmultiple sclerosis. Synthesis Rate IgG, CSF 5.1(A) -9.9 - 3.3 mg/24 h [facility] 04/28/2024 11:4 1 AM EST 04/28/2024 12:27 PM EST us Generic External Data Provider LAB BODY FLUIDS A ND STOOLS ORDERABLES Final Result [facility] [address] [place] [phone] * Gram stain (04/28/2024 11:41 AM EST) 04/28/2024 11:4 1 AM EST 04/28/2024 12:27 PM EST Comment:CSF Narrative [facility] - 05/01/2024 8:04 AM EST Gram stain results: No polys No organisms seen CSF Volume CSF volume mL CSF Volume 2 Appearance Appearance Appearance Clear CSF Culture No growth after 3 days. Specimen Source: Cerebrospinal Fluid us Generic External Data Provider LAB MICROBIOLOGY - GENERAL ORDERABLES Final Result Performing Organization Address [facility] de Phone Number [facility] [address] [place] [address] [phone] * CSF cell count with differential (04/28/2024 11:41 AM EST) Appearance CSF CLEAR [facility] CSF Tube Number 4 [facility] CSF Volume 2.0 ML [facility] CSF Color COLORLESS [facility] CSF White Blood Cell 3 MM*3 [facility] Comment:Body Fluid WBC is a total nucleated cell count.When a differential is performed, the specimen isconcentrated by cytocentrifugation. This sometimes resultsin the number of cells in the differential being greaterthan the actual cell count performed on thenon-concentrated specimen. CSF Red Blood Cell 3 MM*3 [facility] Comment:The reference interv al(s) and other method performancespecifications are unavailable for this body fluid.Comparison of the result with concentration in the blood,serum, or plasma is recommended. LYMPHOCYTES %, CSF 56 % [facility] Monocytes CSF 44 % [facility] 04/28/2024 11:4 1 AM EST 04/28/2024 12:27 PM EST Generic External Data Provider LAB BODY FLUIDS A ND STOOLS ORDERABLES Final Result Performing Organization Address [facility] de Phone Number [facility] [address] [place] [address] [phone] * Glucose, CSF (04/28/2024 11:41 AM EST) CSF Appearance Clear, Colorless [facility] CSF Tube Number 1 [facility] Glucose CSF 95 mg/dL [facility] 04/28/2024 11:4 1 AM EST 04/28/2024 12:27 PM EST Generic External Data Provider LAB BODY FLUIDS A ND STOOLS ORDERABLES Final Result Performing Organization Address [facility] de Phone Number [facility] [address] [place] [address] [phone] * (ABNORMAL) Glucose, Whole Blood (04/28/2024 9:34 AM EST) Glucose, Whole Blood 187(H) 60 - 115 mg/dL [facility] Comment:METER #: [id number] 04/28/2024 9:34 AM EST 04/28/2024 9:39 AM EST us Generic External Data Provider LAB BLOOD ORDERAB LES Final Result Performing Organization Address [facility] Phone Number [facility] [address] [place] [address] [phone] * BI US Breast Limited Bilateral (03/03/2024 1:30 PM EST) Anatomical Region Laterality Modality Breast Bilateral Ultrasound 03/03/2024 1:30 PM EST Narrative 03/03/2024 4:08 PM EST ? [facility] [place] ? [address] ?[place] [address] ? Ultrasound Report ? Signed ? Patient: Torrie Sy ?MR#: [id number] ?? [id number] ? : 1955 ?Acct:[id number] ? Age/Sex: 69 / F ?ADM Date: 03/03/24 ? Loc: HO.MAMMO ? Attending Dr: Juan R Bey MD ? Ordering Physician: Juan R Bey MD ?? Date of Service: 03/03/24 ?? Procedure(s): US breast BI limited mamm only ?? Accession Number(s): [id number] ? cc: Juan R Bey MD ? EXAMINATION: ?? MM DIAGNOSTIC DIGITAL BREAST TOMOSYNTHESIS, BILATERAL ?? US BREAST LIMITED, RIGHT ? CLINICAL INFORMATION: ? Diagnostic exam; follow-up for left retroareolar asymmetry anterior ?? depth cc view; follow-up developing focal asymmetry upper outer ?? quadrant posterior depth with associated mild architectural distortion ?? right breast. ??Patient uses a walker and has a history of multiple ?? falls. ? COMPARISON: ?? Mammography: 01/01/2024, and exams dating back to 2018. ? TECHNIQUE: ?? Digital breast tomosynthesis is performed in the following views: Right ?? 3-D spot compression CC view x2, right 3-D spot compression MLO view, ?? and a left 3-D spot compression CC view. Computer-aided diagnosis was ?? used for this study. This was followed by targeted right breast ?? ultrasound. ? FINDINGS: ?? There are scattered areas of fibroglandular density (ACR BI-RADS breast ?? composition Category b). ? Diagnostic views LEFT breast show only mild stable duct ectasia in the ?? retroareolar region, unchanged from numerous prior exams. These ?? findings are benign. There are no persistent findings suspicious for ?? malignancy left breast. ? Diagnostic views RIGHT breast demonstrate a persisting area of ?? architectural distortion in the approximate 10:00 axis of the right ?? breast, middle to posterior depth, interspersed with at least one focus ?? of fat density. The findings highly suggest fat necrosis as the ?? underlying etiology. Slightly more towards the nipple there is an oval ?? 9 mm circumscribed mass which is stable from prior exams. These will be ?? evaluated with ultrasound. ? ULTRASOUND: ?? CLINICAL INFORMATION: ?? Evaluate focal asymmetry with architectural distortion 10:00 axis right ?? breast. ? COMPARISON: ?? No relevant prior. ? TECHNIQUE: ?? Targeted sonographic evaluation right breast upper outer quadrant was ?? performed using a high frequency linear transducer. ??Selected archived ?? documentation. ? FINDINGS: ? RIGHT BREAST: ?? -At the 10:00 axis right breast, 8 cm from the nipple, there is an ?? irregular predominantly hyperechoic focus with central hypoechoic ?? echoes, measuring an estimated 1.9 x 1.2 x 1.2 cm, no internal color ?? Doppler flow, mildly echogenic surrounding fat, and mild posterior ?? acoustic attenuation without gross shadowing. This has an appearance ?? fairly classic for fat necrosis, and correlates well with the ?? appearance on mammography (as well as a history of multiple falls). ?? This is probably benign, and six-month interval follow-up targeted ?? right breast ultrasound recommended. ? In addition, there are several tiny oval anechoic cysts present, with a ?? dominant oval benign cyst measuring 9 mm at the 10:00 axis, 3 cm from ?? the nipple. These are benign. ? US/US breast BI limited mamm only ?? IMPRESSION: ?? -There are no findings suspicious for malignancy within either breast. ? -Probably benign area of fat necrosis upper outer right breast 10:00 ?? axis, 8 cm from the nipple, for which six-month follow-up TARGETED ?? RIGHT BREAST ULTRASOUND recommended to ensure stability. ? OVERALL ASSESSMENT: ?? Mammography: BI-RADS 3 - Probably benign finding(s) - 6 month follow-up ?? suggested ?? Ultrasound: BI-RADS 3 - Probably benign finding(s) - 6 month follow-up ?? suggested ? RECOMMENDATION: ?? 6 Month F/U ? Electronically signed by: ??Kaleb Del Valle MD ??03/03/2024 04:06 PM EST RP ? Dictated By: ?Kaleb Del Valle MD ? Signed By: ?<Electronically signed by Kaleb Del Valle MD in OV> ?03/03/24 1606 ? DD/ 1330 ? TD/TT: 03/03/24 1412 ? Cigarette Paper Tester: ? Procedure Note Deepthi, Image - 03/03/2024 [place] [facility] [address] [place] [address] Ultrasound Report Signed Patient: Torrie Sy#: [id number] : 5Acct:[id number] Age/Sex: 69 / FADM Date: 03/03/24 Loc: [facility] Attending Dr: Juan R Bey MD Ordering Physician: Juan R Bey MD Date of Service: 03/03/24 Procedure(s): US breast BI limited mamm only Accession Number(s): [id number] cc: Juan R Bey MD EXAMINATION: MM DIAGNOSTIC DIGITAL BREAST TOMOSYNTHESIS, BILATERAL US BREAST LIMITED, RIGHT CLINICAL INFORMATION: Diagnostic exam; follow-up for left retroareolar asymmetry anterior depth cc view; follow-up developing focal asymmetry upper outer quadrant posterior depth with associated mild architectural distortion right breast. Patient uses a walker and has a history of multiple falls. COMPARISON: Mammography: 01/01/2024, and exams dating back to 2018. TECHNIQUE: Digital breast tomosynthesis is performed in the following views: Right 3-D spot compression CC view x2, right 3-D spot compression MLO view, and a left 3-D spot compression CC view. Computer-aided diagnosis was used for this study. This was followed by targeted right breast ultrasound. FINDINGS: There are scattered areas of fibroglandular density (ACR BI-RADS breast composition Category b). Diagnostic views LEFT breast show only mild stable duct ectasia in the retroareolar region, unchanged from numerous prior exams. These findings are benign. There are no persistent findings suspicious for malignancy left breast. Diagnostic views RIGHT breast demonstrate a persisting area of architectural distortion in the approximate 10:00 axis of the right breast, middle to posterior depth, interspersed with at least one focus of fat density. The findings highly suggest fat necrosis as the underlying etiology. Slightly more towards the nipple there is an oval 9 mm circumscribed mass which is stable from prior exams. These will be evaluated with ultrasound. ULTRASOUND: CLINICAL INFORMATION: Evaluate focal asymmetry with architectural distortion 10:00 axis right breast. COMPARISON: No relevant prior. TECHNIQUE: Targeted sonographic evaluation right breast upper outer quadrant was performed using a high frequency linear transducer. Selected archived documentation. FINDINGS: RIGHT BREAST: -At the 10:00 axis right breast, 8 cm from the nipple, there is an irregular predominantly hyperechoic focus with central hypoechoic echoes, measuring an estimated 1.9 x 1.2 x 1.2 cm, no internal color Doppler flow, mildly echogenic surrounding fat, and mild posterior acoustic attenuation without gross shadowing. This has an appearance fairly classic for fat necrosis, and correlates well with the appearance on mammography (as well as a history of multiple falls). This is probably benign, and six-month interval follow-up targeted right breast ultrasound recommended. In addition, there are several tiny oval anechoic cysts present, with a dominant oval benign cyst measuring 9 mm at the 10:00 axis, 3 cm from the nipple. These are benign. US/US breast BI limited mamm only IMPRESSION: -There are no findings suspicious for malignancy within either breast. -Probably benign area of fat necrosis upper outer right breast 10:00 axis, 8 cm from the nipple, for which six-month follow-up TARGETED RIGHT BREAST ULTRASOUND recommended to ensure stability. OVERALL ASSESSMENT: Mammography: BI-RADS 3 - Probably benign finding(s) - 6 month follow-up suggested Ultrasound: BI-RADS 3 - Probably benign finding(s) - 6 month follow-up suggested RECOMMENDATION: 6 Month F/U Electronically signed by: Kaleb Del Valle MD 03/03/2024 04:06 PM EST Dictated By: Kaleb Del Valle MD Signed By: <Electronically signed by Kaleb Del Valle MD in OV> 03/03/24 1606 DD/ 1330 TD/TT: 03/03/24 1412 Cigarette Paper Tester: us Juan R Vega MD IMG US PROCEDURES Fin al Result * Hepatitis Panel, General (02/05/2024 9:25 AM EDT) Hepatitis A IgM Nonreactive Nonreactive [facility] Comment:IgM antibodies to [place] V not detected; does not exclude earlyacute or recovered HAV infection. ~Hepatitis B Surface Antibody NONREACTIVE Nonreactive [facility] Comment:Nonreactive: < 8.00 mIU/mL Hepatitis B Core Antibody Nonreactive Nonreactive [facility] Hepatitis C Antibody Nonreactive Nonreactive [facility] Comment:Antibodies to HCV no t detected; does not exclude early acuteHCV infection. Hepatitis B Surface Ag Negative Negative [facility] 02/05/2024 9:25 AM EDT 02/05/2024 9:25 AM EDT us Generic External Data Provider LAB BLOOD ORDERAB LES Final Result [facility] [address] [place] [phone] * (ABNORMAL) Albumin, Random Urine W/Creatinine (02/03/2024 11:35 AM EDT) Creatinine, Urine 87.94 mg/dL [facility] Microalbumin Urine 151.0 mg/L H [facility] Microalbum Creatinine Ratio Ur 171.7(H) <30 ug/mg cr [facility] Comment:Albumin/Creatinine R atio Reference Ranges: Normal: < 30 ug/mg creatinine Microalbuminuria: 30 - 300 ug/mg creatinineClinical Albuminuria: > 300 ug/mg creatinine 02/03/2024 11:3 5 AM EDT 02/03/2024 12:18 PM EDT us Generic External Data Provider LAB URINE ORDERAB LES Final Result Performing Organization Address City/State/[facility] de Phone Number [facility] [address] [place] [phone] * (ABNORMAL) POCT HGB A1C (01/15/2024 2:21 PM EDT) Hemoglobin A1C 12.6(A) 4.0 - 6.0 % QC Media Lot # [id number] Lot# Expiration Date ,680 Blood 01/15/2024 2:21 PM EDT Juan R Vega MD POINT OF CARE TEST EN TER/EDIT ORDERABLES Final Result * (ABNORMAL) LIPID PANEL (07/24/2021 9:38 AM EDT) Cholesterol 124 mg/dL [facility] Comment: Desirable Cholesterol: ?less than 200 mg/dL Borderline High Cholesterol: ??200-239 mg/dL High Cholesterol: ? greater than 239 mg/dL HDL Cholesterol 37 mg/dL [facility] Comment: Desirable HDL: ??greater than 40 mg/dL ?? Note: This HDL assay may give artificially ? low results in patients with liver disease. LDL Cholesterol Calculated 62 mg/dl [facility] Comment: Desirable LDL: ? less than 100 mg/dL Near Optimal/Above Optimal LDL: ??110-129 mg/dL Borderline High LDL: ? 130-159 mg/dL High LDL: ?160-189 mg/dL Very High LDL: ? greater than or equal to ?190 mg/dL Triglycerides 129 mg/dL [facility] Comment: Desirable Triglyceride: ? less than 150 mg/dL Borderline High Triglyceride ??150-199 mg/dL High Triglyceride: ?200-499 mg/dL Very High Triglyceride: ? greater than or equal to ? 5OO mg/dL Alanine Aminotransferase 16 0 - 31 U/L [facility] Albumin Level 3.8 3.5 - 5.0 g/dL [facility] Alkaline Phosphatase 130(H) 39 - 117 U/L [facility] Anion Gap 11(L) 12 - 20 [facility] Aspartate Amino Transferase 11 5 - 31 U/L [facility] Bilirubin Total 0.7 0.0 - 1.0 mg/dL [facility] Blood Urea Nitrogen 13 9 - 16 mg/dL [facility] Calcium 9.4 8.4 - 10.2 mg/dL [facility] Carbon Dioxide 30(H) 22 - 29 mmol/L [facility] Chloride 104 96 - 108 mmol/L [facility] Creatinine, Serum 0.96 0.5 - 1.4 mg/dL [facility] Estimated Glomerular Filt Rate 58 [facility] Comment: NOTE: ??For -[place] individuals, multiply the result ?by 1.210. ?? Chronic Kidney Disease: ??Estimated GFR < 60 mL/min/1.73m2 Severe Kidney Disease: ??Estimated GFR < 15 mL/min/1.73m2 Glucose Fasting 187(H) 60 - 99 mg/dL [facility] Comment: A fasting glucose of 126 mg/dl or greater on more than one occasion is considered diagnostic of diabetes. Potassium 5.2(H) 3.3 - 5.1 mmol/L [facility] Sodium 140 135 - 145 mmol/L [facility] Total Protein 6.8 6.5 - 8.0 g/dL [facility] 07/24/2021 9:38 AM EDT us Historical Provider HISTORICAL/NON ORDERABLE LABS Final Result [facility] [address] from Last 3 Months or Most Recently Relevant to Health Maintenance Insurance [facility] Care Teams Phlebotomist Associate Relationship Specialty Start Date End Date Juan R Blount MD [address] [place] [phone] PCP - General Internal Medicine 12/09/13
--- OUTSIDE RECORDS SUMMARY | 2024-07-26 15:48 | XMS_ITS | Encounter Summary ---
Author Organization [employer] Address [address] [facility] [address] [place] [address] Care Team Providers Care Sleeve Turner Name Role Phone Juan R Blount MD Primary Care Provide r Encounter Details Date Type Department Care Team (Late st Contact Info) Description 07/03/2022 Orders Only [facility] [address] [place] [address] Luz Marina Zaragoza LPN Social History Tobacco [...] documented as of this encounter Visit Diagnoses Not on filedocumented in this encounter Care Teams Sleeve Turner Relationship Specialty Start Date End Date Juan R Blount MD [address] [place] [phone] PCP - General Internal Medicine 12/09/13 documented as of this encounter
--- OUTSIDE RECORDS SUMMARY | 2024-07-26 15:48 | XMS_ITS | Encounter Summary ---
Author Organization [facility] Address [address] [facility] [address] [place] [address] Care Team Providers Care Sales Effectiveness Manager Name Role Phone Juan R Blount MD Primary Care Provide r Encounter Details Date Type Department Care Team (Late st Contact Info) Description 10/29/[address] [facility] [address] [place] [address] Juan R Blount MD [address] [place], [place] [phone] Social History Tobacco Use Types Packs/Day Years [...] on filedocumented in this encounter Care Teams Sales Effectiveness Manager Relationship Specialty Start Date End Date Juan R Blount MD [address] [place], [place] [phone] PCP - General Internal Medicine 12/09/13 documented as of this encounter
--- OUTSIDE RECORDS SUMMARY | 2024-07-26 15:48 | XMS_ITS | Encounter Summary ---
Author Organization [employer] [facility] Address [address] [facility] [address] [place] [address] Care Team Providers Care High School Science Teacher Name Role Phone Juan R Blount MD Primary Care Provide r Encounter Details Date Type Department Care Team (Late st Contact Info) Description 05/31/2022 Abstract [facility] MED[facility] [address] [place] [address] Juan R Blount MD [address] [place] [address] [phone] Social History Tobacco Use Types Packs/Day Years [...] on filedocumented in this encounter Care Teams High School Science Teacher Relationship Specialty Start Date End Date Juan R Blount MD [address] [place], [place] [phone] PCP - General Internal Medicine 12/09/13 documented as of this encounter
--- OUTSIDE RECORDS SUMMARY | 2024-07-26 15:48 | XMS_ITS ---
Author Organization [facility] Address [address] [place] [address] Care Team Providers Care Cold Meat Chef Name Role Phone Angelito Vega MD, Juan R Primary Care Provide Caden Jordan [phone] REASON FOR VISIT Patient presents today for a COLON SCREENING Encounters Encounter Location Date Provider Diagnosis [facility] [address] [place] [address] 05/25/2024 Caden Huffman Plan Of Treatment Next Appt Details Provider Name:Caden Huffman , 09/28/2024 10:10:00 AM, [address], [address], [place], [address], Progress Notes * KAM BRUSHNITADOB:[birth year] (69 yo M)Acc No.[id number]:05/25/2024 Progress Notes Patient:?MERCEDES BRUSH Provider:?Caden Huffman MD :1955???Age:69 Y???Sex:Male Mark e:05/25/2024 Address:[address] [place] [address], [place], [place] Pcp:Juan R montalvo MD Subjective: * Chief Complaints: * ???1. Patient presents today for a COLON SCREENING. * Medical History:? Objective: * Vitals:? Assessment: Plan: * Treatment: * * The named appointment provid er may or may not be the originator of this progress note, and it is not deemed complete until electronically signed by the appointment provider. Sign off status: Pending * Provider:?Caden Huffman MD Date:? 025 Generated for Deirdre dominguez/Bobbi/Roxiesmitting on:?07/26/2024 03:47 PM EDT
--- OUTSIDE RECORDS SUMMARY | 2024-07-26 15:48 | XMS_ITS | Encounter Summary ---
Author Organization [employer] Address [address] 7t [place] [address] Care Team Providers Care Supervisor Framing Mill Name Role Phone Juan R Blount MD Primary Care Provide r Reason for Visit * Reason Comments Med Refill Encounter Details Date Type Department Care Team (Late st Contact Info) Description 07/22/2024 Refill [facility] MEDICINE [address] [place] [address] Juan R Blount MD [address] [place] [address] Social History Tobacco Use Types Packs/Day Years [...] Diagnoses Not on filedocumented in this encounter Additional Health Concerns Assessment Noted Time PHQ-9 Depression Total Score: 3 01/15/20 24 1:38 PM EDT documented as of this encounter Care Teams Supervisor Framing Mill Relationship Specialty Start Date End Date Juan R Blount MD [address] [place] [address] PCP - General Internal Medicine 12/09/13 documented as of this encounter
--- OUTSIDE RECORDS SUMMARY | 2024-07-26 15:48 | XMS_ITS | Encounter Summary ---
Author Organization [employer] Address [address] 7[address] [place] [address] Care Team Providers Care Stock Trader Name Role Phone Juan R Blount MD Primary Care Provide r Reason for Visit * Reason Comments Med Refill Encounter Details Date Type Department Care Team (Late st Contact Info) Description 07/16/2024 Refill [facility] MEDICINE [address] [place] [address] Juan R Blount MD [address] [place] [address] Type 2 diabetes mellitus with hyperglycemia, with long-term current use of insulin (CMS/[facility]); Type 2 diabetes mellitus with hyperglycemia (CMS/HCC); intermediate designer (current) use of insulin ([facility]) Social History Tobacco Use Types Packs/Day Years [...] with long-term current use of insulin (CMS/HCC) Type 2 diabetes mellitus with hyperglycemia (CMS/HCC) intermediate designer (current) use of insulin (CMS/HCC) documented in this encounter Additional Health Concerns Assessment Noted Time PHQ-9 Depression Total Score: 3 01/15/20 24 1:38 PM EDT documented as of this encounter Care Teams Stock Trader Relationship Specialty Start Date End Date Juan R Blount MD [address] [place] [address] PCP - General Internal Medicine 12/09/13 documented as of this encounter
--- OUTSIDE RECORDS SUMMARY | 2024-07-26 15:48 | XMS_ITS ---
Author Organization [facility] Address [address] [place] [address] Care Team Providers Care Frame Welder Cargo Utility Trailers Name Role Phone Angelito Vega MD, Juan R Primary Care Provide Caden Jordan [phone] REASON FOR VISIT R/S OV Encounters Encounter Location Date Provider Diagnosis [facility] [address] [place] [address] 05/24/2024 Caden Huffman Plan Of Treatment Next Appt Details Provider Name:Caden Huffman , 09/28/2024 10:10:00 AM, [address], [address], [place], [address], Progress Notes * MERCEDES BRUSHDOB:[birth year] (69 yo M)Acc No.[id number]:05/24/2024 Patient:?MERCEDES BRUSH :1955???Age:69 Y???Sex:Male Address:[address], [place], [address] * true * Date:? Generated for Printi angelica/Bobbi/eTransmitting on:?07/26/2024 03:47 PM EDT
--- OUTSIDE RECORDS SUMMARY | 2024-07-26 15:48 | XMS_ITS | Encounter Summary ---
Author Organization [employer] Address [address] [place] [address] Care Team Providers Care Wafer Polishing Lead Worker Name Role Phone Juan R Blount MD Primary Care Provide r Reason for Visit * Reason Comments Med Refill Encounter Details Date Type Department Care Team (Late st Contact Info) Description 06/27/2023 Refill [facility]EDS [address] [place] [address] Aggie Guan MD [address] [place] [address] Primary insomnia Social History Tobacco Use Types [...] documented as of this encounter Care Teams Wafer Polishing Lead Worker Relationship Specialty Start Date End Date Juan R Blount MD [address] [place] [address] PCP - General Internal Medicine 12/09/13 documented as of this encounter
--- OUTSIDE RECORDS SUMMARY | 2024-07-26 15:48 | XMS_ITS | Encounter Summary ---
Author Organization [employer] Address [address] [facility] 7t [place] [address] Care Team Providers Care Emissions Repair Technician Name Role Phone Juan R Blount MD Primary Care Provide r Encounter Details Date Type Department Care Team (Late st Contact Info) Description 06/11/2022 Orders Only [facility] MED & PEDS [address] [place], [place] [phone] Luz Marina Zaragoza LPN Social History Tobacco [...] on filedocumented in this encounter Care Teams Emissions Repair Technician Relationship Specialty Start Date End Date Juan R Blount MD [address] [place] [address] PCP - General Internal Medicine 12/09/13 documented as of this encounter
--- OUTSIDE RECORDS SUMMARY | 2024-07-26 15:48 | XMS_ITS | Encounter Summary ---
Author Organization [employer] Address [address] [facility] [address] 7t [place] [address] Care Team Providers Care Grails Web Application Developer Name Role Phone Juan R Blount MD Primary Care Provide r Reason for Visit * Reason Comments Med Refill Encounter Details Date Type Department Care Team (Late st Contact Info) Description 07/29/2023 Refill [facility] MED [facility] PEDS [address] [place] [address] Aggie Guan MD [address] [place] [address] Primary insomnia Social History Tobacco Use Types [...] documented as of this encounter Care Teams Grails Web Application Developer Relationship Specialty Start Date End Date Juan R Blount MD [address] [place] [address] PCP - General Internal Medicine 12/09/13 documented as of this encounter
--- OUTSIDE RECORDS SUMMARY | 2024-07-26 15:48 | XMS_ITS | Encounter Summary ---
Author Organization [employer] Address [address] [place] [address] Care Team Providers Care Photofinishing Laboratory Worker Name Role Phone Juan R Blount MD Primary Care Provide r Reason for Visit * Reason Comments Med Refill Encounter Details Date Type Department Care Team (Late st Contact Info) Description 02/04/[address] [facility] MEDICINE [address] [place] [address] Lewis Carter MD [address] [place] [address] Social History Tobacco Use Types Packs/Day Years [...] documented as of this encounter Care Teams Photofinishing Laboratory Worker Relationship Specialty Start Date End Date Juan R Blount MD [address] [place] [address] PCP - General Internal Medicine 12/09/13 documented as of this encounter
--- OUTSIDE RECORDS SUMMARY | 2024-07-26 15:48 | XMS_ITS | Encounter Summary ---
Author Organization [employer] Address [address] [facility] 7t [place] [address] Care Team Providers Care Plate Setter Name Role Phone Juan R Blount MD Primary Care Provide r Encounter Details Date Type Department Care Team (Late st Contact Info) Description 05/29/2022 Orders Only [facility] MEDICINE [address] [place] [address] Cyndi Sy LPN Social History Tobacco Use Types Packs/Day [...] on filedocumented in this encounter Care Teams Plate Setter Relationship Specialty Start Date End Date Juan R Blount MD [address] [place] [address] PCP - General Internal Medicine 12/09/13 documented as of this encounter
--- OUTSIDE RECORDS SUMMARY | 2024-07-26 15:48 | XMS_ITS | Encounter Summary ---
Author Organization [employer] Address [address] [place] [address] Care Team Providers Care Manager Gift Name Role Phone Juan R Blount MD Primary Care Provide r Encounter Details Date Type Department Care Team (Late st Contact Info) Description 05/16/[address] [facility] MEDICINE [address] [place] [address] Juan R Blount MD [address] [place], [place] [phone] Social History Tobacco Use Types Packs/Day Years Used Date Smoking Tobacco: Every Day Cigarettes Smokeless Tobacco: Never Alcohol Use Standard Drinks/Week Comments Never 0 (1 standard drink = 0.6 oz pur e alcohol) Depression Answer Date Recorded Patient Health Questionnaire-9 Score 8 11/19/2022 Housing Stability Answer Date Recorded What is your housing situation today? I have olivercaleb romero 02/05/[address] you [...] as of this encounter Care Teams Manager Gift Relationship Specialty Start Date End Date Juan R Blount MD [address] [place] [address] PCP - General Internal Medicine 12/09/13 documented as of this encounter
--- OUTSIDE RECORDS SUMMARY | 2024-07-26 15:48 | XMS_ITS | Clinical Summary ---
Author Organization [facility] Address [address] [place] [address] [place] [address] Phone Care Team Providers Care Mat Repairer Name Role Phone Juan R Eaton MD Primary Care Provider Unav ailable Allergies Active Allergy Reactions Criticality Noted Date Comments Acetaminophen 08/24/2020 Latex 08/24/2020 Penicillin G 08/24/2020 Penicillin V 08/24/2020 Medications albuterol (2.5 MG/3ML) 0.083% nebulizer solution INHALE 1 AMPULE USING A NEBULIZER THREE TIMES DAILY 1 Active Ventolin HFA 108 (90 Base) MCG/ACT inhaler INHALE 2 PUFFS BY MOUTH EVERY 4 TO 6 HOURS NEEDED 1 Active amLODIPine (NORVASC) 5 MG tablet Take 5 mg by mouth at bed time 1 Active Aspirin Adult Low Strength 81 MG EC tablet Take 81 mg by mouth 1 Active atenolol (TENORMIN) 25 MG tablet TAKE 1/2 TABLET BY MOUTH TWICE DAILY IN THE MORNING AND EVENING 1 Active atorvastatin (LIPITOR) 40 MG tablet Take 40 mg by mouth at bed time 1 Active cyclobenzaprin e (FLEXERIL) 10 MG tablet TAKE 1 TABLET BY MOUTH EVERY 8 HOURS DIRECTED 1 Active Trulicity 1.5 MG/0.5ML solution pen-injector INJECT ONE PEN (=1.5MG) SUBCUTANEOUSLY ONCE A WEEK DIRECTED 1 Active NovoLOG FLEXPEN 100 UNIT/ML injection INJECT 5 UNITS SUBCUTANEOUSLY BEFORE BREAKFAST AND BEFORE LUNCH AND INJECT 8 UNITS BEFORE SUPPER DIRECTED 1 Active gabapentin (NEURONTIN) 800 MG tablet TAKE 1 TABLET BY MOUTH THREE TIMES DAILY IN THE MORNING, AT NOON, AND IN THE EVENING 1 Active fluocinonide (LIDEX) 0.05 % cream APPLY TO THE AFFECTED AREA(S) ONCE DAILY 1 Active Lantus 100 UNIT/ML injection INJECT 38 UNITS SUBCUTANEOUSLY EVERY DAY 1 Active montelukast (SINGULAIR) 10 MG tablet Take 10 mg by mouth at bed time 1 Active oxybutynin XL (DITROPAN-XL) 5 MG 24 hr tablet Take 5 mg by mouth 1 Active traMADol (ULTRAM) 50 MG tablet TAKE 2 TABLETS BY MOUTH TWICE DAILY NEEDED FOR PAIN 1 Active zolpidem (AMBIEN) 10 MG tablet Take 10 mg by mouth at night if needed 1 Active Active Problems No known active problems Family History Medical History Relation Comments Diabetes Mother Heart disease Mother Relation Status Comments Mother Social History Tobacco Use Types Packs/Day Years Used Date Smoking Tobacco: Every Day Smokeless Tobacco: Never Alcohol Use Standard Drinks/Week Comments Never 0 (1 standard drink = 0.6 oz pur e alcohol) Comments Unknown Sex and Gender Information Value Date Recorded Sex Assigned at Not on file Legal Sex Female 2:43 PM EDT Gender Identity Not on file Sexual Orientation Not on file Last Filed Vital Signs Vital Sign Reading Time Taken Comments Blood Pressure 142/78 08/24/2020 2:59 PM EDT Pulse 80 08/24/2020 2:59 PM EDT Temperature - - Respiratory Rate - - Oxygen Saturation 97% 08/24/2020 2:59 PM EDT Inhaled Oxygen Concentration - - Weight 94.4 kg (208 lb 3.2 oz) 08/24/2020 2:59 P M EDT Height - - Body Mass Index - - Plan of Treatment Health Maintenance Due Date Last Done Comments Breast Cancer Screening 1955 Pneumococcal Vaccine: 65+ Ye ars (1 of 2 - PCV) 1961 Colorectal Cancer Screening: Annual FOBT 01/25/2004 Colorectal Cancer Screening: Colonoscopy 01/25/2004 Colorectal Cancer Screening: Sigmoidoscopy 01/25/2004 Influenza Vaccine (Season Ended) 2024 Hepatitis B Vaccine Aged Out No longe r eligible based on patient's age to complete this topic Insurance [employer] Care Teams Mat Repairer Relationship Specialty Start Date End Date Juan R Eaton MD PCP - General Internal Medicine 08/23/20
== END 2024-07-26 14:36 | disposition home or self-care (01) ==
LOC: HO.HNS 13:18
PROVIDERS: PCP Internal Medicine; Referring Provider Internal Medicine; Visit Provider Physician Assistant
DX: M54.2 Cervicalgia (principal)
CPT/HCPCS: 99204

== ENCOUNTER → 2024-07-26 13:18 | Outpatient (BNVA) | payer OTHER, SELFPAY | PROVIDERS: PCP Internal Medicine; Referring Provider Internal Medicine; Visit Provider Physician Assistant | DX: M54.2 Cervicalgia (principal) | CPT/HCPCS: 99202 ==

== ENCOUNTER 2024-08-12 11:43 | Outpatient (AMB) | payer OTHER, SELFPAY ==
[2024-08-12 12:32] VITALS: BP 132/70; PULSE 117; O2SAT 99; BMI 26.9
--- NOTE | 2024-08-12 12:32 | MHC.OFFVIS ---
Vital Signs 08/12/24 12:32 Height 5 ft 6 in Weight 166 lb 7.184 oz BMI 26.9 BP 132/70 Blood Pressure Location Lt brachial Position Sitting Pulse 117 H Pulse Source Pulse Oximeter Pulse Oximetry (%) 99 Oxygen Delivery Method Room Air Intake Visit Reasons: OA/FMS Intake Note: Patient last seen by Doctor Walker De La Garza on 02/13/24. Presents today for OA/FMS follow up. Patient complains of right knee pain, feels like it moves from side to side. Supervisor Refractory Products Services: Supervisor Refractory Products Offered & Declined Allergies insulin detemir Allergy (Intermediate, Verified 07/26/24 14:06) Rash penicillin V Allergy (Intermediate, Verified 07/26/24 14:06) Rash acetaminophen [From Tylenol] Allergy (Mild, Verified 07/26/24 14:06) ITCH,RASH iodine [Iodine] Allergy (Mild, Verified 07/26/24 14:06) HIVES penicillin G [Penicillin G] Allergy (Mild, Verified 07/26/24 14:06) RASH latex [LATEX] Allergy (Unknown, Verified 07/26/24 14:06) RASH trimerosal Allergy (Intermediate, Uncoded 04/02/24 10:01) rash Latex Gloves Allergy (Mild, Uncoded 04/02/24 10:01) Rash METAL Allergy (Mild, Uncoded 04/02/24 10:01) HIVES Medication List - Last Reconciled 08/12/24 by Ora Iniguez MD albuterol sulfate 90 mcg/actuation 2 puffs inhalation Q6H PRN amlodipine 5 mg PO BEDTIME aspirin 81 mg PO DAILY atenolol 12.5 mg PO BID atorvastatin 40 mg PO BEDTIME blood sugar diagnostic (FreeStyle Lite Strips) four times a day blood-glucose meter (FreeStyle Lite Meter kit) As directed blood-glucose sensor (FreeStyle Crystal 3 Sensor device) apply new sensor every 14 days blood-glucose,side door worker,cont (FreeStyle Crystal 3 [place]) Use daily to monitor blood glucose levels continuously. [Cane As directed] docusate sodium 100 mg PO BEDTIME dulaglutide (Trulicity) 4.5 mg subcut MO@0900 fluticasone propion-salmeterol 500-50 mcg/dose (Advair Diskus) 1 inh inhalation BID gabapentin 800 mg PO TID glucose (Dex4 Glucose Quick Dissolve) 16 grams (4 x 4 gram) PO Q15M PRN insulin aspart U-100 (Novolog FlexPen U-100 Insulin aspart) 18 units subcut TIDAC insulin degludec (Tresiba FlexTouch U-200 insulin) 60 units (0.3 mL) subcut BEDTIME 30 days insulin syringe-needle U-100 As directed lancets (FreeStyle Lancets) four times a day lidocaine 5% 1 appl topical BID PRN losartan 100 mg PO DAILY montelukast (Singulair) 10 mg PO BEDTIME nicotine 21 mg transdermal DAILY pen needle, diabetic (BD Ultra-Fine Janene Pen Needle) As directed four times a day pioglitazone (Actos) 15 mg PO DAILY tramadol 50 mg PO TID PRN umeclidinium 62.5 mcg/actuation (Incruse Ellipta) 1 inh inhalation DAILY zolpidem 10 mg PO BEDTIME PRN HPI Comments Details: Patient is a 69-year-old female with asthma, hypertension, hyperlipidemia, diabetes complicated by CKD, osteopenia/osteoporosis, polyarticular osteoarthritis, and fibromyalgia here today for follow up Interval History: Patient last seen 02/13/[address] De La Garza. At that time she was following up for her osteoarthritis on tramadol and gabapentin. No evidence of inflammatory arthritis at that time and medication was unchanged Today, she reports good pain control from the gabapentin and tramadol. Currently undergoing workup for her neurological issues with neuro spine, neurology and physiatry Rheumatologic History: Polyarticular osteoarthritis Current Rheumatology Medication(s): Gabapentin 800mg tid Tramadol 50mg tid [facility] Medical History (Updated 08/12/24 @ 13:26 by Ora Iniguez MD) CVA (cerebral vascular accident) Osteopenia Screening examination for infectious disease Insulin dependent type 2 diabetes mellitus Elevated C-reactive protein Elevated sed rate Myalgia, upper arm Knee instability Back pain at L4-L5 level Knee pain, right Knee pain, left UTI (urinary tract infection) Proteinuria Hyperlipidemia Lumbar spondylosis Fibromyalgia Syncope COPD (chronic obstructive pulmonary disease) Depression Asthma Type 2 diabetes mellitus with hyperglycemia, with long-term current use of insulin Type 2 diabetes mellitus with chronic kidney disease Chronic kidney disease, stage 3 unspecified Type 2 diabetes mellitus with diabetic polyneuropathy Essential hypertension Surgical History Hx of mammogram Hx of colonoscopy Hx of oral surgery Hx of tubal ligation Family History Father No problems noted. Mother Heart disease CVD (cardiovascular disease) Diabetes Social History Household Members: Family Housing: Apartment Do you presently have visiting nurse or other home services: No Alcohol intake: never Patient Tobacco Use Status: Current everyday Tobacco user Tobacco use type: Cigarette Cigarette Packs Per Day: 0.5 Cigarettes Per Day: 10.0 Review of Systems Const Details: Review of Systems Constitutional: Denies fever, chills, weight loss ENT: Denies vision changes, eye pain or eye redness, dental caries, dry mouth GI: Denies nausea, vomiting, diarrhea, abdominal pain, change in BM Pulm: Denies SOB, FOLEY, hemoptysis, wheezing Cards: Denies chest pain, palpitations Skin: Denies Raynaud's, rash, nail changes, photosensitivity, THIRD MATE: Denies headaches, weakness, paresthesias, recurrent falls MSK: as per HPI All other systems reviewed and are unremarkable except noted above Physical Exam Vital Signs: Last Vital Signs Pulse 117 H 08/12/24 12:32 BP 132/70 08/12/24 12:32 Pulse Ox 99 08/12/24 12:32 Oxygen Delivery Method Room Air 08/12/24 12:32 BMI result Body Mass Index 26.9 Vital signs reviewed Physical Examination CONSTITUITIONAL Patient alert and cooperative. Well appearing and in no apparent painful distress Patient examined in chair walker HEENT Conjunctiva and sclera clear. ?Pupils equal round and reactive to light. ?No lymphadenopathy. ? CHEST/RESPIRATORY SYSTEM Normal respiratory effort and able to speak in complete sentences. ?Clear to auscultation bilaterally. ?No crackles, rales, rhonchi, wheezes heard. CARDIAC SYSTEM Regular rate and rhythm. ?S1 and S2 heard no murmurs. ?Radial pulses intact bilaterally MSK Hands: ?Able to make a fist. No synovitis noted to the MCPs, PIPs or DIPs. ?No tenderness to palpation of these joints. No deformities noted. ? Wrists: ?Full range of motion at the wrists without pain. ?No tenderness to palpation or synovitis noted to the wrists. Elbows: Full range of motion without pain. No tenderness, weakness, swelling, increased warmth or erythema. Shoulders: Full range of active range of motion without pain. No tenderness, weakness, swelling, increased warmth or erythema. Knees: ?Full range of motion. ?No tenderness, swelling, increased warmth or erythema.?Bilateral crepitations Ankles: Full range of motion. ?No tenderness, swelling, increased warmth or erythema.? Feet: ?Negative squeeze test. ?No tenderness to palpation or swelling of the MTPs. Tender points:?No tenderness to palpation of the bilateral trapezius, supraspinatus, greater trochanters, anterior costochondral junctions, bilateral gluteal areas, bilateral suboccipital muscle insertions Has decreased sensation to her right LE at the level of the ankle SKIN Skin intact without rashes. Results Reviewed Results Reviewed: DEXA 02/2023 FINDINGS: LEFT FEMUR, NECK: Current: BMD 0.723 g/cm2, Z-score -1.2, T-score -2.3, osteopenia. Baseline: BMD 0.768 g/cm2. LEFT FEMUR, TOTAL: Current: BMD 0.882 g/cm2, Z-score -0.3, T-score -1.0, normal, 3.3% decrease from baseline (<5% change is not significant). Baseline: BMD 0.912 g/cm2. AP SPINE L1-L4 (excluding L2 and L3): The data of L1-L4 has been changed to exclude the L2 and L3 vertebral bodies, because degenerative sclerosis at these levels may cause overestimation of lumbar spine density. Current: BMD 1.319 g/cm2, Z-score 2.1, T-score 1.3, normal, 18.2% increase from baseline (<5% change is not significant). Baseline: BMD 1.116 g/cm2. 10-YEAR FRACTURE RISK PREDICTION, FRAX: Major osteoporotic fracture (clinical spine, forearm, hip or shoulder) 12.1%. Hip fracture 3.7%. Assessment & Plan Assessment & Plan (1) Polyarticular osteoarthritis: Code(s): M15.9 - Polyosteoarthritis, unspecified Plan: #Polyarticular OA Patient is a 69-year-old female here today for follow up of her polyarticular osteoarthritis. Previously thought to have some form of inflammatory arthritis based on her elevated inflammatory markers however there was no evidence of active synovitis in the past or today. It is likely that her elevated inflammatory markers are as a result of other processes and not to directly related to an inflammatory autoimmune process. With respect to her osteoarthritis she has well-controlled on gabapentin and tramadol. Currently following up with neurology and neuro spine as well as physiatry for her neurological issues involving her right lower extremity and her spine. Plan - Gabapentin 800mg tid PO - Tramadol 50mg tid - RTC 1 year (2) Osteopenia: Comment: DEXA 02/2023: AP Spine 1.3, Left femur neck -2.3, Left femur total -1.0. FRAX 12.1%/3.7%. Code(s): M85.80 - Other specified disorders of bone density and structure, unspecified site Category: Medical Qualifiers: Osteopenia location: lumbar spine Qualified Code(s): M85.88 - Other specified disorders of bone density and structure, other site Plan: #Osteopenia with borderline FRAX Patient at this time has osteopenia especially involving her left hip. This is not surprising given that the patient does not move much due to her spine issues and her neurologic issues. We will repeat her bone density 02/2023 and if worsening we will start her on antiresorptive medications such as bisphosphonates Plan - DEXA 02/2025 - Vitamin D supplementation - Check Vitamin D at next blood draw Plan I spent 22 minutes reviewing the record and labs, taking a history, examining the patient, discussing the treatment plan, ordering diagnostic work up and documenting in the medical record Coding Level of Care Code Est Pt Level 3 (71649) Diagnoses Polyarticular osteoarthritis M15.9 Osteopenia of lumbar spine M85.88 Osteopenia location: lumbar spine
--- OUTSIDE RECORDS SUMMARY | 2024-08-12 14:03 | XMS_ITS | Encounter Summary ---
Author Organization [employer] Address [address] [facility] [facility] [address] [place] [address] Care Team Providers Care Director Of Sales And Marketing Name Role Phone Juan R Blount MD Primary Care Provide r Encounter Details Date Type Department Care Team (Late st Contact Info) Description 05/16/2023 Abstract [facility] MEDICINE [address] [place] [address] Juan R Blount MD [address] [place], [place] [phone] Social History Tobacco Use Types Packs/Day Years [...] documented as of this encounter Care Teams Director Of Sales And Marketing Relationship Specialty Start Date End Date Juan R Blount MD [address] [place] [address] PCP - General Internal Medicine 12/09/13 documented as of this encounter
--- OUTSIDE RECORDS SUMMARY | 2024-08-12 14:03 | XMS_ITS | Encounter Summary ---
Author Organization [employer] Address [address] [facility] [address] [place] [address] Care Team Providers Care Medical Insurance Verifier Name Role Phone Juan R Blount MD Primary Care Provide r Reason for Visit * Reason Comments Med Refill Encounter Details Date Type Department Care Team (Late st Contact Info) Description 04/16/2024 Refill [facility] CHC MED & PEDS [address] [place], [place] [phone] Aggie Melendez MD [address] [place] [address] Primary insomnia Social History Tobacco Use Types [...] documented as of this encounter Care Teams Medical Insurance Verifier Relationship Specialty Start Date End Date Juan R Blount MD [address] [place] [address] PCP - General Internal Medicine 12/09/13 documented as of this encounter
--- OUTSIDE RECORDS SUMMARY | 2024-08-12 14:03 | XMS_ITS | Encounter Summary ---
Author Organization [employer] Address [address] [facility] 7t [place] [address] Care Team Providers Care Maternity Nurse Name Role Phone Juan R Blount MD Primary Care Provide r Reason for Visit * Reason Comments Med Refill Encounter Details Date Type Department Care Team (Late st Contact Info) Description 07/29/2023 Refill [facility] CHC MED & PEDS [address] [place] [address] Aggie Guan MD 230 [place] [address] Primary insomnia Social History Tobacco Use Types [...] documented as of this encounter Care Teams Maternity Nurse Relationship Specialty Start Date End Date Juan R Blount MD [address] [place] [address] PCP - General Internal Medicine 12/09/13 documented as of this encounter
--- OUTSIDE RECORDS SUMMARY | 2024-08-12 14:03 | XMS_ITS | Encounter Summary ---
Author Organization [employer] Address [address] [facility] [address] [place] [address] Care Team Providers Care Computer Graphics Illustrator Name Role Phone Juan R Blount MD Primary Care Provide r Reason for Visit * Reason Comments Med Refill Encounter Details Date Type Department Care Team (Late st Contact Info) Description 06/17/2024 Refill [facility] MEDICINE [address] [place], [place] [phone] Name, MD Fco [address] [place] [address] Mixed hyperlipidemia Social History Tobacco Use Types [...] documented as of this encounter Care Teams Computer Graphics Illustrator Relationship Specialty Start Date End Date Juan R Blount MD [address] [place] [address] PCP - General Internal Medicine 12/09/13 documented as of this encounter
--- OUTSIDE RECORDS SUMMARY | 2024-08-12 14:03 | XMS_ITS | Encounter Summary ---
Author Organization [employer] Address [address] [facility] [address] [facility] [address] [place] [address] Care Team Providers Care Professional Fee Coder Name Role Phone Juan R Blount MD Primary Care Provide r Reason for Visit * Reason Comments Med Refill Encounter Details Date Type Department Care Team (Late st Contact Info) Description 10/23/2023 Refill [facility] CHC MED & PEDS [address] [place], [place] [phone] Juan R Blount MD [address] [place], [place] [phone] Type 2 diabetes mellitus with hyperglycemia, with long-term current use of insulin ([facility]) Social History Tobacco Use Types Packs/Day Years [...] hyperglycemia, with long-term current use of insulin ([facility]) documented in this encounter Additional Health Concerns Assessment Noted Time PHQ-9 Depression Total Score: 8 11/20/19 23 9:41 AM EDT documented as of this encounter Care Teams Professional Fee Coder Relationship Specialty Start Date End Date Juan R Blount MD [address] [place] [address] PCP - General Internal Medicine 12/09/13 documented as of this encounter
--- OUTSIDE RECORDS SUMMARY | 2024-08-12 14:03 | XMS_ITS | Encounter Summary ---
Author Organization [employer] Address [address] [facility] 7t [place] [address] Care Team Providers Care Campus Interviews Intern Name Role Phone Juan R Blount MD Primary Care Provide r Reason for Visit * Reason Comments Med Refill Encounter Details Date Type Department Care Team (Late st Contact Info) Description 06/27/2023 Refill [facility] CHC MED & PEDS [address] [place] [address] Aggie Guan MD 230 [place] [address] Primary insomnia Social History Tobacco Use Types [...] documented as of this encounter Care Teams Campus Interviews Intern Relationship Specialty Start Date End Date Juan R Blount MD 230 [place] [address] PCP - General Internal Medicine 12/09/13 documented as of this encounter
--- OUTSIDE RECORDS SUMMARY | 2024-08-12 14:03 | XMS_ITS | Encounter Summary ---
Author Organization [employer] Address [address] [facility] [address] [place] [address] Care Team Providers Care Validation Analyst Name Role Phone Juan R Blount MD Primary Care Provide r Encounter Details Date Type Department Care Team (Late st Contact Info) Description 05/16/2022 Orders Only [facility] CHC MED & PEDS [address] [place] [address] Luz Marina Zaragoza LPN Social History Tobacco [...] EST Narrative 05/28/2022 4:46 PM EST ? [facility] ? [address] ?[place] [address] ? Mammography Report ? Signed ? Patient: Sy,Torrie ?MR#: [id number] ?? [id number] ? : 1955 ?Acct:[id number] ? Age/Sex: 67 / F ?ADM Date: 05/28/22 ? Loc: HO.MAMMO ? Attending Dr: Juan R Bey MD ? Ordering Physician: Juan R Bey MD ?Results: 3.6MProbably Benign Finding - Short 6 M F/U ?? Suggested ? Date of Service: 05/28/22 ?Follow Up: 6 Month F/U ? Procedure(s): MM tomosynthesis diagnostic LT ?? Accession Number(s): [id number] ? cc: Juan R Bey MD ? [...] 1643 ? DD/ 1458 ? TD/TT: ? Accreditation Manager: SK ? Procedure Note Donchela, Image - 05/28/2022 [facility] [address] [place] [address] Mammography Report Signed Patient: Torrie Sy#: [id number] : 5Acct:[id number] Age/Sex: 67 / FADM Date: 05/28/22 Loc: [facility] Attending Dr: Juan R Bey MD Ordering Physician: Juan R Bey MD Results: 3.6MProbably Benign Finding - Short 6 M F/U Suggested Date of Service: 05/28/22Follow Up: 6 Month F/U Procedure(s): MM tomosynthesis diagnostic LT Accession Number(s): [id number] cc: Juan R Bey MD EXAMINATION: MM [...] in OV> 05/28/22 1643 DD/ 1458 TD/TT: Accreditation Manager: [facility] External Provider IMG BI PROCEDURES Edited Result - Final documented in this encounter Visit Diagnoses Not on filedocumented in this encounter Care Teams Validation Analyst Relationship Specialty Start Date End Date Juan R Blount MD [address] [place] [address] PCP - General Internal Medicine 12/09/13 documented as of this encounter
--- OUTSIDE RECORDS SUMMARY | 2024-08-12 14:03 | XMS_ITS | Encounter Summary ---
Author Organization [employer] Address [address] [facility] 7t [place] [address] Care Team Providers Care Induction Heat Treater Name Role Phone Juan R Blount MD Primary Care Provide r Reason for Visit * Reason Comments Med Refill Encounter Details Date Type Department Care Team (Late st Contact Info) Description 06/27/2023 Refill [facility] CHC MED & PEDS [address] [place] [address] Aggie Guan MD [address] [place] [address] Primary insomnia Social History Tobacco Use Types [...] documented as of this encounter Care Teams Induction Heat Treater Relationship Specialty Start Date End Date Juan R Blount MD 230 [place] [address] PCP - General Internal Medicine 12/09/13 documented as of this encounter
--- OUTSIDE RECORDS SUMMARY | 2024-08-12 14:03 | XMS_ITS | Encounter Summary ---
Author Organization [employer] Address [address] [facility] [address] [place] [address] Care Team Providers Care Napper Grinder Name Role Phone Juan R Blount MD Primary Care Provide r Reason for Visit * Reason Comments Med Refill Encounter Details Date Type Department Care Team (Late st Contact Info) Description 02/04/2024 Refill [facility] MEDICINE [address] [place] [address] Lewis Carter MD [address] [place] [address] Social History Tobacco Use Types Packs/Day Years [...] documented as of this encounter Care Teams Napper Grinder Relationship Specialty Start Date End Date Juan R Blount MD [address] [place] [address] PCP - General Internal Medicine 12/09/13 documented as of this encounter
--- OUTSIDE RECORDS SUMMARY | 2024-08-12 14:03 | XMS_ITS | Encounter Summary ---
Author Organization [employer] [facility] Address [address] [facility] 7t [place] [address] Care Team Providers Care Slot Floor Attendant Name Role Phone Juan R Blount MD Primary Care Provide r Encounter Details Date Type Department Care Team (Late st Contact Info) Description 10/29/2022 Abstract [facility]INE [address] [place] [address] Juan R Blount MD [address] [place], [place] [phone] Social History Tobacco Use Types Packs/Day Years [...] on filedocumented in this encounter Care Teams Slot Floor Attendant Relationship Specialty Start Date End Date Juan R Blount MD [address] [place], [place] [phone] PCP - General Internal Medicine 12/09/13 documented as of this encounter
--- OUTSIDE RECORDS SUMMARY | 2024-08-12 14:03 | XMS_ITS | Clinical Summary ---
Author Organization [facility] Address [address] [place] [address] [place] [address] Phone Care Team Providers Care Tip Tester Name Role Phone Juan R Eaton MD [...] Comments Breast Cancer Screening 1955 Pneumococcal Vaccine: 50+ Ye ars (1 of 2 - PCV) 1974 Colorectal Cancer Screening: Annual FOBT 01/25/2004 Colorectal Cancer Screening: Colonoscopy 01/25/2004 Colorectal Cancer Screening: Sigmoidoscopy 01/25/2004 Influenza Vaccine (Season Ended) 2024 Hepatitis B Vaccine Aged Out No longe r eligible based on patient's age to complete this topic Insurance [place] Care Teams Tip Tester Relationship Specialty Start Date End Date Juan R Eaton MD PCP - General Internal Medicine 08/23/20
--- OUTSIDE RECORDS SUMMARY | 2024-08-12 14:04 | XMS_ITS | Clinical Summary ---
Author Organization [employer] Address [address] [place] [address] Care Team Providers Care Principal Developer Name Role Phone Juan R Blount MD Primary Care Provide r Allergies Active Allergy Reactions Criticality Noted Date Comments Kurt Inhibitors Cough Acetaminophen Other reaction(s): rash Albuterol Other reaction(s): rash Insulin Other reaction(s): rash Iodine Other reaction(s): rash Latex Other reaction(s): unspecified Medroxyprogesterone Other reaction(s): rash Penicillin V Rash Low 01/07/2024 Medications Continuous Blood Gluc Inbound Telemarketer (FreeStyle Crystal 2 [place]) deviceIndication s:Type 2 diabetes mellitus with hyperglycemia, with long-term current use of insulin ([facility]) 1 Device before breakfast, before lunch, and before evening meal. 1 each 023 Active Continuous Blood Gluc Sensor (FreeStyle Crystal 2 Sensor) miscIndications: Type 2 diabetes mellitus with hyperglycemia, with long-term current use of insulin ([facility]) 1 Device before breakfast, before lunch, and [...] hyperglycemia, with long-term current use of insulin ([facility]) TAKE 1 TABLET BY MOUTH EVERY MORNING [...] AT BEDTIME 90 tablet 1 025 Active BD Pen Needle Janene U/F 32G X 4 MM miscIndications: Type 2 diabetes mellitus without complication, with long-term current use of insulin ([facility]) USE DIRECTED FOUR TIMES DAILY 100 each 5 025 Active gabapentin (Neurontin) 800 MG tabletIndication s:Type 2 diabetes mellitus with hyperglycemia, with long-term current use of insulin ([facility]) TAKE 1 TABLET BY MOUTH THREE TIMES DAILY IN THE MORNING, AT NOON, AND IN THE EVENING 90 tablet 2 025 Active TRUEplus Lancets 33G miscIndications: Type 2 diabetes mellitus with hyperglycemia ([facility]),skilled nursing (current) use of insulin ([facility]) TEST BLOOD SUGAR FOUR TIMES DAILY 300 each 025 Active glucose blood (FREESTYLE LITE) test stripIndications :Type 2 diabetes mellitus with hyperglycemia ([facility]),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 ([facility]) TEST BLOOD SUGAR FOUR TIMES DAILY 300 strip 11 025 Active NovoLOG FLEXPEN 100 UNIT/ML pen INJECT 17 UNITS SUBCUTANEOUSLY THREE TIMES DAILY DIRECTED 15 mL 025 Active zolpidem (Ambien) 10 MG tabletIndication s:Primary insomnia TAKE 1 TABLET BY MOUTH AT BEDTIME NEEDED FOR SLEEP 30 tablet 025 Active FREESTYLE LITE test stripIndications :Type 2 diabetes mellitus with hyperglycemia ([facility]/HCC),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 ([facility]) TEST BLOOD SUGAR FOUR TIMES DAILY 300 strip 024 2024 Discontinued(R sung (will not trigger notification to Pharmacy)) TRUEplus Lancets 33G miscIndications: Type 2 diabetes mellitus with hyperglycemia (CMS/HCC),skilled nursing (current) use of insulin ([facility]) TEST BLOOD SUGAR FOUR TIMES DAILY 300 each 11 024 2024 Discontinued(R eorder (will not trigger notification to Pharmacy)) gabapentin (Neurontin) 800 MG tabletIndication s:Type 2 diabetes mellitus with hyperglycemia, with long-term current use of insulin ([facility]) TAKE 1 TABLET BY MOUTH THREE TIMES DAILY IN THE MORNING, AT NOON, AND IN THE EVENING 90 tablet 2 024 2024 Discontinued NovoLOG FLEXPEN 100 UNIT/ML pen INJECT 17 UNITS SUBCUTANEOUSLY THREE TIMES DAILY DIRECTED 15 mL 1 025 2024 Discontinued zolpidem (Ambien) 10 MG tabletIndication s:Primary insomnia TAKE 1 TABLET BY MOUTH AT BEDTIME NEEDED FOR SLEEP 30 tablet 025 2024 Discontinued Active Problems Problem Noted [...] 1:39 PM EDT): Patient was admitted to [facility] from 12/26-12/28/2023 For evaluation of intermittent right [...] the ER MRI Brain 12/28/2023 negative at [facility] Etiology ? Neuropathy, Lumbar radiculopathy Pt also [...] Pt is now under the care of Order Packer Dr Holm last seen 05/11/2019 He ordered [...] Eye exam was last done on: 08/2022 [facility] No retinopathy Microalbumin checked on: 07/24/2021 was: [...] for a f/u Is seeing a psychotherapist Levi On a regimen of Ambien 10mg po qhs prescribed by me Patient denies any suicidal ideation or thoughts, Patient has crisis numbers and knows to use them if needed Encounters Date Type Department Care Team Description 08/02/2024 Refill [facility] [address] [place] [address] Helena Hernández ANP Primary insomnia 07/22/2024 Refill [facility] [address] [place] [address] Juan R Blount MD 07/16/2024 Refill [facility] [address] [place], [place] [phone] Juan R Blount MD Type 2 diabetes mellitus with hyperglycemia, with long-term current use of insulin ([facility]); Type 2 diabetes mellitus with hyperglycemia ([facility]); 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 ([facility]) 07/14/2024 Telephone [facility] [address] [place] [address] Juan R Blount MD DME from [facility] 07/12/2024 Telephone [facility] [address] [place], [place] [phone] Juan R Blount MD Durable Medical Equipment 07/11/2024 Refill [facility] [address] [place], [place] [phone] Juan R Blount MD Type 2 diabetes mellitus without complication, with long-term current use of insulin ([facility]) 07/05/2024 Telephone [facility] [address] [place] [address] Juan R Blount MD [facility] (Pad, incont prevail lng max) 07/02/2024 Refill [facility] [address] [place] [address] Sadia Membreno MD Primary insomnia 06/22/2024 Telephone [facility] [address] [place], [place] [phone] Juliana Goode, RN Results 06/21/2024 Orders Only [facility] [address] [place], [place] [phone] Juan R Blount MD Lumbar radiculopathy (Primary Dx) 06/17/2024 Refill [facility] [address] [place] [address] Name, MD Fco Mixed hyperlipidemia 06/17/2024 Refill [facility] [address] [place] [address] Name, MD Fco Mixed hyperlipidemia 06/17/2024 Refill [facility] [address] [place] [address] Juan R Blount MD Wheezing; Mixed hyperlipidemia 05/31/2024 Refill [facility] [address] [place] [address] Name, MD Fco 05/27/2024 Refill [facility] [address] [place] [address] Juan R Blount MD Primary insomnia 05/24/2024 Refill [facility] [address] [place] [address] Juan R Blount MD Asthma, unspecified asthma severity, unspecified whether complicated, unspecified whether persistent 05/23/2024 Refill [facility] [address] [place] [address] Juan R Blount MD Essential hypertension; Asthma, unspecified asthma severity, unspecified whether complicated, unspecified whether persistent 05/14/2024 Orders Only GENERIC EXTERNAL DATA DEPARTMENT Provider, Generic External Data from Last 3 Months Immunizations Name Administration [...] your housing situation today? I have oliver sing 01/13/[address] you li [...] WHOLE BLOOD Routine 05/14/2024 10:23 AM EST BI US BREAST LIMITED BILATERAL Routine 03/03/2024 1:30 PM EST HEPATITIS PANEL, GENERAL Routine 02/05/2024 9:25 AM EDT ALBUMIN, RANDOM URINE W/CREATININE Routine 02/03/2024 11:35 AM EDT POCT GLYCATED HEMOGLOBIN, TOTAL Routine 01/15/2024 2:21 PM EDT Type 2 diabetes mellitus without complication, with long-term current use of insulin ([facility]) ZZZ HISTORICAL LIPID PANEL Routine 07/24/2021 9:38 AM EDT from Last 3 Months or Most Recently Relevant to Health Maintenance Results * (ABNORMAL) Glucose, Whole Blood (05/14/2024 10:23 AM EST) Glucose, Whole Blood 190(H) 60 - 115 mg/dL [facility] Comment:METER #: [id number] Testing performed in the Endocrinology Department [address] , [address], [facility]. 05/14/2024 10:2 3 AM EST 05/14/2024 10:27 AM EST us Generic External Data Provider LAB BLOOD ORDERAB LES Final Result [facility] [address] [place] [phone] * BI US Breast Limited Bilateral (03/03/2024 1:30 PM EST) Anatomical Region Laterality Modality Breast Bilateral Ultrasound 03/03/2024 1:30 PM EST Narrative 03/03/2024 4:08 PM EST ? [facility] ? [address] ?[place] [address] ? Ultrasound Report ? Signed ? Patient: Sy,Torrie ?MR#: [id number] ?? [id number] ? : 1955 ?Acct:[id number] ? Age/Sex: 69 / F ?ADM Date: 03/03/24 ? Loc: HO.MAMMO ? Attending Dr: Juan R Bey MD ? Ordering Physician: Juan R Bey MD ?? Date of Service: 03/03/24 ?? Procedure(s): US breast BI limited mamm only ?? Accession Number(s): [id number] ? cc: Juan R Bey MD ? [...] DD/ 1330 ? TD/TT: 03/03/24 1412 ? Ornamental Brick Installer: ? Procedure Note Donotuseinterpreter, Image - 03/03/2024 [facility] [address] [place], [place] [address] Ultrasound Report Signed Patient: Torrie SyMR#: [id number] : 5Acct:[id number] Age/Sex: 69 / FADM Date: 03/03/24 Loc: [facility] Attending Dr: Juan R Bey MD Ordering Physician: Juan R Bey MD Date of Service: 03/03/24 Procedure(s): US breast BI limited mamm only Accession Number(s): [id number] cc: Juan R Bey MD EXAMINATION: MM [...] Kaleb Del Valle MD 03/03/2024 04:[address] [facility] Dictated By: Kaleb Del aVlle MD Signed By: <Electronically signed by Kaleb Del Valle MD in OV> 03/03/24 1606 DD/ 1330 TD/TT: 03/03/24 1412 Ornamental Brick Installer: us Juan R Vega MD IMG US PROCEDURES Fin al Result * Hepatitis Panel, General (02/05/2024 9:25 AM EDT) Hepatitis A IgM Nonreactive Nonreactive [facility] Comment:IgM antibodies to DE [place] CRUZ V not detected; does not exclude earlyacute or recovered HAV infection. ~Hepatitis B Surface Antibody NONREACTIVE Nonreactive [facility] Comment:Nonreactive: < 8.00 mIU/mL Hepatitis B Core Antibody Nonreactive Nonreactive [facility] Hepatitis C Antibody Nonreactive Nonreactive [facility] Comment:Antibodies to HCV no t detected; does not exclude early acuteHCV infection. Hepatitis B Surface Ag Negative Negative [facility] 02/05/2024 9:25 AM EDT 02/05/2024 9:25 AM EDT Generic External Data Provider LAB BLOOD ORDERAB LES Final Result Performing Organization Address [facility] de Phone Number [facility] [address] [place] [phone] * (ABNORMAL) Albumin, Random Urine W/Creatinine (02/03/2024 11:35 AM EDT) Creatinine, Urine 87.94 mg/dL [facility] Microalbumin Urine 151.0 mg/L [facility] Microalbum Creatinine Ratio Ur 171.7(H) <30 ug/mg cr [facility] Comment:Albumin/Creatinine R atio Reference Ranges: Normal: < 30 ug/mg creatinine Microalbuminuria: 30 - 300 ug/mg creatinineClinical Albuminuria: > 300 ug/mg creatinine 02/03/2024 11:3 5 AM EDT 02/03/2024 12:18 PM EDT Generic External Data Provider LAB URINE ORDERAB LES Final Result Performing Organization Address [facility] Co de Phone Number [facility] [address] [place] [phone] * (ABNORMAL) POCT HGB A1C (01/15/2024 2:21 PM EDT) Hemoglobin A1C 12.6(A) 4.0 - 6.0 % QC Media Lot # [id number] Lot# Expiration Date ,584 Blood 01/15/2024 2:21 PM EDT Juan R Vega MD POINT OF CARE TEST EN TER/EDIT ORDERABLES Final Result * (ABNORMAL) LIPID PANEL (07/24/2021 9:38 AM EDT) Cholesterol 124 mg/dL [facility] Comment: Desirable Cholesterol: ?less than 200 mg/dL Borderline High Cholesterol: ??200-239 mg/dL High Cholesterol: ? greater than 239 mg/dL HDL Cholesterol 37 mg/dL [facility] Comment: Desirable HDL: ??greater than 40 mg/dL ?? Note: This HDL assay may give artificially ? low results in patients with liver disease. LDL Cholesterol Calculated 62 mg/dl [facility] Comment: Desirable LDL: ? less than 100 mg/dL Near Optimal/Above Optimal LDL: ??110-129 mg/dL Borderline High LDL: ? 130-159 mg/dL High LDL: ?160-189 mg/dL Very High LDL: ? greater than or equal to ?190 mg/dL Triglycerides 129 mg/dL [facility] Comment: Desirable Triglyceride: ? less than 150 mg/dL Borderline High Triglyceride ??150-199 mg/dL High Triglyceride: ?200-499 mg/dL Very High Triglyceride: ? greater than or equal to ? 5OO mg/dL Alanine Aminotransferase 16 0 - 31 U/L [facility] Albumin Level 3.8 3.5 - 5.0 g/dL [facility] Alkaline Phosphatase 130(H) 39 - 117 U/L [facility] Anion Gap 11(L) 12 - 20 [facility] Aspartate Amino Transferase 11 5 - 31 U/L [facility] Bilirubin Total 0.7 0.0 - 1.0 mg/dL [facility] Blood Urea Nitrogen 13 9 - 16 mg/dL [facility] Calcium 9.4 8.4 - 10.2 mg/dL [facility] Carbon Dioxide 30(H) 22 - 29 mmol/L [facility] Chloride 104 96 - 108 mmol/L [facility] Creatinine, Serum 0.96 0.5 - 1.4 mg/dL [facility] Estimated Glomerular Filt Rate 58 [facility] Comment: NOTE: ??For -Iranian individuals, multiply the result ?by 210. ?? Chronic Kidney Disease: ??Estimated GFR < [...] Historical Provider HISTORICAL/NON ORDERABLE LABS Final Result [facility] [address] from Last 3 Months or Most Recently Relevant to Health Maintenance Insurance [facility] * Guarantor: Torrie Sy Account Type Relation to Patient Date of Phone Billing Address Personal/Family Self [address] [place] [address] Care Teams Principal Developer Relationship Specialty Start Date End Date Juan R Blount MD [address] [place] [phone] PCP - General Internal Medicine 12/09/13
--- OUTSIDE RECORDS SUMMARY | 2024-08-12 14:04 | XMS_ITS | Encounter Summary ---
Author Organization [employer] Address [address] [facility] 7t [place] [address] Care Team Providers Care Insole Reinforcer Name Role Phone Juan R Blount MD Primary Care Provide r Encounter Details Date Type Department Care Team (Late st Contact Info) Description 07/03/2022 Orders Only [facility]S [address] [place] [address] Luz Marina Zaragoza LPN Social History Tobacco [...] on filedocumented in this encounter Care Teams Insole Reinforcer Relationship Specialty Start Date End Date Juan R Blount MD [address] [place] [phone] PCP - General Internal Medicine 12/09/13 documented as of this encounter
--- OUTSIDE RECORDS SUMMARY | 2024-08-12 14:04 | XMS_ITS | Encounter Summary ---
Author Organization [employer] [facility] Address [address] [facility] 7t [place] [address] Care Team Providers Care Rn Family Practice Name Role Phone Juan R Blount MD Primary Care Provide r Encounter Details Date Type Department Care Team (Late st Contact Info) Description 05/31/2022 Abstract [facility] MEDICINE [address] [place] [address] Juan R Blount MD [address] [place] [address] [phone] Social History Tobacco Use Types Packs/Day Years [...] on filedocumented in this encounter Care Teams Rn Family Practice Relationship Specialty Start Date End Date Juan R Blount MD [address] [place], [place] [phone] PCP - General Internal Medicine 12/09/13 documented as of this encounter
--- OUTSIDE RECORDS SUMMARY | 2024-08-12 14:04 | XMS_ITS | Encounter Summary ---
Author Organization [employer] Address [address] [facility] 7t [place] [address] Care Team Providers Care Loss Prevention Auditor Name Role Phone Juan R Blount MD Primary Care Provide r Encounter Details Date Type Department Care Team (Late st Contact Info) Description 05/29/2022 Orders Only [facility] MEDICINE [address] [place] [address] Cyndi Sy LPN Social History Tobacco Use [...] on filedocumented in this encounter Care Teams Loss Prevention Auditor Relationship Specialty Start Date End Date Juan R Blount MD [address] [place] [address] PCP - General Internal Medicine 12/09/13 documented as of this encounter
--- OUTSIDE RECORDS SUMMARY | 2024-08-12 14:04 | XMS_ITS | Encounter Summary ---
Author Organization [employer] Address [address] [facility] 7t [place] [address] Care Team Providers Care Associate Entertainment Editor Name Role Phone Juan R Blount MD Primary Care Provide r Encounter Details Date Type Department Care Team (Late st Contact Info) Description 06/11/2022 Orders Only [facility] MED [facility] PEDS [address] [place] [address] Luz Marina Zaragoza LPN Social History Tobacco [...] on filedocumented in this encounter Care Teams Associate Entertainment Editor Relationship Specialty Start Date End Date Juan R Blount MD [address] [place] [phone] PCP - General Internal Medicine 12/09/13 documented as of this encounter
--- OUTSIDE RECORDS SUMMARY | 2024-08-12 14:04 | XMS_ITS | Encounter Summary ---
Author Organization [employer] Address [address] [facility] 7t [place] [address] Care Team Providers Care Application Dba Name Role Phone Juan R Blount MD Primary Care Provide r Reason for Visit * Reason Onset Date Comments Med Refill 12/03/2022 Encounter Details Date Type Department Care Team ([facility] st Contact Info) Description 12/03/2022 Refill [facility] MEDICINE [address] [place] [address] Juan R Blount MD [address] [place] [address] Asthma, unspecified asthma severity, unspecified whether complicated, [...] documented as of this encounter Care Teams Application Dba Relationship Specialty Start Date End Date Juan R Blount MD [address] [place] [phone] PCP - General Internal Medicine 12/09/13 documented as of this encounter
== END 2024-08-12 13:22 | disposition home or self-care (01) ==
LOC: HO.RHE 11:43
PROVIDERS: PCP Internal Medicine; Visit Provider Student in an Organized Health Care Education/Training Program
DX: M15.9 Polyosteoarthritis, unspecified (principal); M85.88 Other specified disorders of bone density and structure, other site
CPT/HCPCS: 99213

== ENCOUNTER → 2024-08-12 11:43 | Outpatient (BNVA) | payer OTHER, SELFPAY | PROVIDERS: PCP Internal Medicine; Visit Provider Student in an Organized Health Care Education/Training Program | DX: M85.88 Other specified disorders of bone density and structure, other site (principal); M15.9 Polyosteoarthritis, unspecified; M79.7 Fibromyalgia | CPT/HCPCS: 99212 ==

== ENCOUNTER 2024-08-18 12:25 | Outpatient (REF) | payer OTHER, SELFPAY ==
--- NOTE | ~2024-08-18 | US_ITS ---
EXAMINATION: US THYROID HISTORY: nontoxic single rt 3.1 cm thyroid nodule TECHNIQUE: Real-time grayscale ultrasound imaging was performed and images were reviewed. COMPARISON: There are no prior studies for comparison. FINDINGS: SIZE: The right thyroid lobe measures 4.6 x 1.5 x 1.4 cm. The left thyroid lobe measures 4.6 x 2.8 x 3.2 cm. The isthmus measures 1 mm. FLOW: Flow to the gland is normal. ECHOGENICITY: The echotexture of the gland is homogeneous. NODULES: There is a left-sided nodule with imaging characteristics as follows: Nodule #: 1 Location: Left mid to lower pole measuring 3.3 x 2.7 x 3.2 cm. Shape: Wider than tall (0 points) Margins: Smooth (0 points) Echotexture: Isoechoic (1 point) Composition: Solid (2 points) Calcifications: None (0 points) Total points: 3 TIRADS: TR3: Mildly suspicious. US/US thyroid IMPRESSION: Solitary 3.3 x 2.7 x 3.2 cm left thyroid nodule. According to ACR TI-RADS guidelines below, ultrasound-guided fine-needle aspiration is recommended. ACR TI-RADS Guidelines TR1 (0 points): Benign, No follow-up or biopsy required TR2 (2 points): Not Suspicious, No biopsy or follow up indicated TR3 (3 points): Mildly Suspicious, FNA if >= 2.5 cm, Follow if >= 1.5 cm TR4 (4-6 points): Moderately Suspicious, FNA if >= 1.5 cm, Follow if >= 1.0 cm TR5 (>=7 points): Highly Suspicious, FNA if >= 1.0 cm, Follow if >= 0.5 cm Electronically signed by: Caden Blood MD 08/19/2024 07:29 AM EDT
--- OUTSIDE RECORDS SUMMARY | 2024-08-18 13:44 | XMS_ITS | Encounter Summary ---
Author Organization [employer] Address [address] [facility] 7t [place] [address] Care Team Providers Care Manual Qa Tester Name Role Phone Juan R Blount MD Primary Care Provide r Reason for Visit * Reason Comments Med Refill Encounter Details Date Type Department Care Team (Late st Contact Info) Description 07/29/2023 Refill [facility] MED [facility] PEDS [address] [place] [address] Aggie Guan MD [address] [place] [address] Primary insomnia Social History Tobacco Use Types [...] documented as of this encounter Care Teams Manual Qa Tester Relationship Specialty Start Date End Date Juan R Blount MD [address] [place] [address] PCP - General Internal Medicine 12/09/13 documented as of this encounter
--- OUTSIDE RECORDS SUMMARY | 2024-08-18 13:44 | XMS_ITS | Encounter Summary ---
Author Organization [employer] Address [address] [facility] [address] [place] [address] Care Team Providers Care Manager Card Name Role Phone Juan R Blount MD Primary Care Provide r Reason for Visit * Reason Comments Med Refill Encounter Details Date Type Department Care Team (Late st Contact Info) Description 04/16/2024 Refill [facility] MED & PEDS [address] [place], [place] [phone] Aggie Melendez MD [address] [place] [address] Primary insomnia Social History Tobacco Use Types [...] as of this encounter Care Teams Manager Card Relationship Specialty Start Date End Date Juan R Blount MD [address] [place] [address] PCP - General Internal Medicine 12/09/13 documented as of this encounter
--- OUTSIDE RECORDS SUMMARY | 2024-08-18 13:44 | XMS_ITS | Encounter Summary ---
Author Organization [employer] Address [address] [facility] [address] 7t [place] [address] Care Team Providers Care Mason Liner Name Role Phone Juan R Blount MD Primary Care Provide r Encounter Details Date Type Department Care Team (Late st Contact Info) Description 05/16/2023 Abstract [facility] MEDICINE [address] [place] [address] Juan R Blount MD [address] [place], [place] [phone] Social History Tobacco Use Types Packs/Day Years [...] documented as of this encounter Care Teams Mason Liner Relationship Specialty Start Date End Date Juan R Blount MD [address] [place] [address] PCP - General Internal Medicine 12/09/13 documented as of this encounter
--- OUTSIDE RECORDS SUMMARY | 2024-08-18 13:44 | XMS_ITS | Encounter Summary ---
Author Organization [employer] Address [address] [facility] 7t [place] [address] Care Team Providers Care Talent Acquisition Consultant Name Role Phone Juan R Blount MD Primary Care Provide r Reason for Visit * Reason Comments Med Refill Encounter Details Date Type Department Care Team (Late st Contact Info) Description 06/27/[address] [facility] MED & PEDS [address] [place] [address] Aggie Guan MD [address] [place] [address] Primary insomnia Social History Tobacco Use Types [...] documented as of this encounter Care Teams Talent Acquisition Consultant Relationship Specialty Start Date End Date Juan R Blount MD [address] [place] [address] PCP - General Internal Medicine 12/09/13 documented as of this encounter
--- OUTSIDE RECORDS SUMMARY | 2024-08-18 13:44 | XMS_ITS | Encounter Summary ---
Author Organization [facility] [facility] Address [address] [place] [address] Care Team Providers Care Tool Liaison Name Role Phone Juan R Blount MD Primary Care Provide r Encounter Details Date Type Department Care Team (Late st Contact Info) Description 10/29/2022 Abstract [facility] MEDICINE [address] [place] [address] Juan R Blount MD [address] [place], [place] [phone] Social History Tobacco Use Types Packs/Day Years [...] on filedocumented in this encounter Care Teams Tool Liaison Relationship Specialty Start Date End Date Juan R Blount MD [address] [place], [place] [phone] PCP - General Internal Medicine 12/09/13 documented as of this encounter
--- OUTSIDE RECORDS SUMMARY | 2024-08-18 13:44 | XMS_ITS | Encounter Summary ---
Author Organization [employer] Address [address] 7t [place] [address] Care Team Providers Care Supervisor Christmas Tree Farm Name Role Phone Juan R Blount MD Primary Care Provide r Encounter Details Date Type Department Care Team (Late st Contact Info) Description 05/16/2022 Orders Only [facility]C MED & PEDS [address] [place] [address] Luz Marina Zaragoza LPN Social History Tobacco [...] EST Narrative 05/28/2022 4:46 PM EST ? [facility] ? [address] ?[place] [address] ? Mammography Report ? Signed ? Patient: Sy,Torrie ?MR#: [id number] ?? [id number] ? : 1955 ?Acct:[id number] ? Age/Sex: 67 / F ?ADM Date: 05/28/22 ? Loc: HO.MAMMO ? Attending Dr: Juan R Bey MD ? Ordering Physician: Juan R Bey MD ?Results: 3.6MProbably Benign Finding - Short 6 M F/U ?? Suggested ? Date of Service: 05/28/22 ?Follow Up: 6 Month F/U ? Procedure(s): MM tomosynthesis diagnostic LT ?? Accession Number(s): [id number] ? cc: Juan R Bey MD ? [...] 1643 ? DD/ 1458 ? TD/TT: ? Supervisor Pipe Joints: SK ? Procedure Note Donchela, Image - 05/28/2022 [facility] [address] [place] [address] Mammography Report Signed Patient: Torrie Sy#: [id number] : 5Acct:[id number] Age/Sex: 67 / FADM Date: 05/28/22 Loc: NATALEE Attending Dr: Juan R Bey MD Ordering Physician: Juan R Bey MD Results: 3.6MProbably Benign Finding - Short 6 M F/U Suggested Date of Service: 05/28/22Follow Up: 6 Month F/U Procedure(s): MM tomosynthesis diagnostic LT Accession Number(s): [id number] cc: Juan R Bey MD EXAMINATION: MM [...] in OV> 05/28/22 1643 DD/ 1458 TD/TT: Supervisor Pipe Joints: S[facility] External Provider IMG BI PROCEDURES Edited Result - Final documented in this encounter Visit Diagnoses Not on filedocumented in this encounter Care Teams Supervisor [employer] Tree Farm Relationship Specialty Start Date End Date Juan R Blount MD [address] [place] [phone] PCP - General Internal Medicine 12/09/13 documented as of this encounter
--- OUTSIDE RECORDS SUMMARY | 2024-08-18 13:44 | XMS_ITS | Encounter Summary ---
Author Organization [employer] Address [address] [facility] 7t [place] [address] Care Team Providers Care Finance Insurance Manager Name Role Phone Juan R Blount MD Primary Care Provide r Reason for Visit * Reason Comments Med Refill Encounter Details Date Type Department Care Team (Late st Contact Info) Description 06/27/2023 Refill [facility] CHC MED & PEDS [address] [place] [address] Aggie Guan MD [address] [place] [address] Primary insomnia Social History Tobacco Use Types [...] documented as of this encounter Care Teams Finance Insurance Manager Relationship Specialty Start Date End Date Juan R Blount MD [address] [place] [address] PCP - General Internal Medicine 12/09/13 documented as of this encounter
--- OUTSIDE RECORDS SUMMARY | 2024-08-18 13:44 | XMS_ITS | Encounter Summary ---
Author Organization [employer] Address [address] 7t [place] [address] Care Team Providers Care Volcanology Professor Name Role Phone Juan R Blount MD Primary Care Provide r Reason for Visit * Reason Comments Med Refill Encounter Details Date Type Department Care Team (Late st Contact Info) Description 06/17/2024 [facility]ill [facility] [address] [place], [place] [phone] Name, MD Fco [address] [place] [address] Mixed hyperlipidemia Social History Tobacco Use Types [...] documented as of this encounter Care Teams Volcanology Professor Relationship Specialty Start Date End Date Juan R Blount MD [address] [place] [address] PCP - General Internal Medicine 12/09/13 documented as of this encounter
--- OUTSIDE RECORDS SUMMARY | 2024-08-18 13:44 | XMS_ITS | Clinical Summary ---
Author Organization [facility] Address [address] [place] [address] [place] [phone] Phone Care Team Providers Care Manager Dialysis Name Role Phone Juan R Eaton MD [...] this topic Insurance [place] Care Teams Manager Dialysis Relationship Specialty Start Date End Date Juan R Eaton MD PCP - General Internal Medicine 08/23/20
--- OUTSIDE RECORDS SUMMARY | 2024-08-18 13:44 | XMS_ITS | Encounter Summary ---
Author Organization [employer] Address [address] 7t [place] [address] Care Team Providers Care Drill Operator Automatic Name Role Phone Juan R Blount MD Primary Care Provide r Reason for Visit * Reason Comments Med Refill Encounter Details Date Type Department Care Team (Late st Contact Info) Description 10/23/2023 Refill [facility] CHC MED & PEDS [address] [place], [place] [phone] Juan R Blount MD [address] [place], [place] [phone] Type 2 diabetes mellitus with hyperglycemia, with long-term current use of insulin ([facility]) Social History Tobacco Use Types Packs/Day Years [...] hyperglycemia, with long-term current use of insulin ([facility]) documented in this encounter Additional Health Concerns Assessment Noted Time PHQ-9 Depression Total Score: 8 11/20/19 23 9:41 AM EDT documented as of this encounter Care Teams Drill Operator Automatic Relationship Specialty Start Date End Date Juan R Blount MD [address] [place] [address] PCP - General Internal Medicine 12/09/13 documented as of this encounter
--- OUTSIDE RECORDS SUMMARY | 2024-08-18 13:44 | XMS_ITS | Encounter Summary ---
Author Organization [employer] Address [address] 7t [place] [address] Care Team Providers Care Business Development Recruiter Name Role Phone Juan R Blount MD Primary Care Provide r Reason for Visit * Reason Comments Med Refill Encounter Details Date Type Department Care Team (Late st Contact Info) Description 02/04/2024 Refill [facility] MEDICINE [address] [place] [address] Lewis Carter MD 230 [place] [address] Social History Tobacco Use Types Packs/Day Years [...] documented as of this encounter Care Teams Business Development Recruiter Relationship Specialty Start Date End Date Juan R Blount MD 230 [place] [address] PCP - General Internal Medicine 12/09/13 documented as of this encounter
--- OUTSIDE RECORDS SUMMARY | 2024-08-18 13:45 | XMS_ITS | Encounter Summary ---
Author Organization [employer] Address [address] [facility] 7t [place] [address] Care Team Providers Care Gas Main Fitter Helper Name Role Phone Juan R Blount MD Primary Care Provide r Encounter Details Date Type Department Care Team (Late st Contact Info) Description 06/11/2022 Orders Only [facility] CHC MED & PEDS [address] [place], [place] [phone] Luz Marina Zaragoza LPN Social History Tobacco [...] on filedocumented in this encounter Care Teams Gas Main Fitter Helper Relationship Specialty Start Date End Date Juan R Blount MD [address] [place] [phone] PCP - General Internal Medicine 12/09/13 documented as of this encounter
--- OUTSIDE RECORDS SUMMARY | 2024-08-18 13:45 | XMS_ITS | Encounter Summary ---
Author Organization [employer] Address [address] [facility] 7t [place] [address] Care Team Providers Care Teaching Young Name Role Phone Juan R Blount MD Primary Care Provide r Reason for Visit * Reason Onset Date Comments Med Refill 12/03/2022 Encounter Details Date Type Department Care Team ([facility] st Contact Info) Description 12/03/2022 Refill [facility] MEDICINE [address] [place] [address] Juan R Blount MD 230 [place] [address] Asthma, unspecified asthma severity, unspecified whether complicated, [...] documented as of this encounter Care Teams Teaching Young Relationship Specialty Start Date End Date Juan R Blount MD [address] [place] [address] PCP - General Internal Medicine 12/09/13 documented as of this encounter
--- OUTSIDE RECORDS SUMMARY | 2024-08-18 13:45 | XMS_ITS | Clinical Summary ---
Author Organization [employer] Address [address] [facility] 7t [place] [address] Care Team Providers Care Poison Information Specialist Name Role Phone Juan R Blount MD Primary Care Provide r Allergies Active Allergy Reactions Criticality Noted Date Comments Kurt Inhibitors Cough Acetaminophen Other reaction(s): rash Albuterol Other reaction(s): rash Insulin Other reaction(s): rash Iodine Other reaction(s): rash Latex Other reaction(s): unspecified Medroxyprogesterone Other reaction(s): rash Penicillin V Rash Low 01/07/2024 Medications Continuous Blood Gluc Sports Betting Manager (FreeStyle Crystal 2 Hammond) deviceIndication s:Type 2 diabetes mellitus with hyperglycemia, with long-term current use of insulin ([facility]) 1 Device before breakfast, before lunch, and before evening meal. 1 each 023 Active Continuous Blood Gluc Sensor (FreeStyle Crystal 2 Sensor) miscIndications: Type 2 diabetes mellitus with hyperglycemia, with long-term current use of insulin (CMS/[facility]) 1 Device before breakfast, before lunch, and [...] hyperglycemia, with long-term current use of insulin ([facility]) TAKE 1 TABLET BY MOUTH EVERY MORNING [...] complication, with long-term current use of insulin ([facility]) USE DIRECTED FOUR TIMES DAILY 100 each 5 025 Active gabapentin (Neurontin) 800 MG tabletIndication s:Type 2 diabetes mellitus with hyperglycemia, with long-term current use of insulin ([facility]) TAKE 1 TABLET BY MOUTH THREE TIMES DAILY IN THE MORNING, AT NOON, AND IN THE EVENING 90 tablet 2 025 Active TRUEplus Lancets 33G miscIndications: Type 2 diabetes mellitus with hyperglycemia (CMS/[facility]),USP (current) use of insulin ([facility]) TEST BLOOD SUGAR FOUR TIMES DAILY 300 each 025 Active glucose blood (FREESTYLE LITE) test stripIndications :Type 2 diabetes mellitus with hyperglycemia (CMS/[facility]),equipment operator intermodal yard (current) use of insulin ([facility]) TEST BLOOD SUGAR FOUR TIMES DAILY 300 strip 11 025 Active NovoLOG FLEXPEN 100 UNIT/ML pen INJECT 17 UNITS SUBCUTANEOUSLY THREE TIMES DAILY DIRECTED 15 mL 025 Active zolpidem (Ambien) 10 MG tabletIndication s:Primary insomnia TAKE 1 TABLET BY MOUTH AT BEDTIME NEEDED FOR SLEEP 30 tablet 025 Active FREESTYLE LITE test stripIndications :Type 2 diabetes mellitus with hyperglycemia (CMS/HCC),equipment operator intermodal yard (current) use of insulin ([facility]) TEST BLOOD SUGAR FOUR TIMES DAILY 300 strip 024 2024 Discontinued(R sung (will not trigger notification to Pharmacy)) gabapentin (Neurontin) 800 MG tabletIndication s:Type 2 diabetes mellitus with hyperglycemia, with long-term current use of insulin ([facility]) TAKE 1 TABLET BY MOUTH THREE TIMES [...] 1:39 PM EDT): Patient was admitted to [facility] from 12/26-12/28/2023 For [...] the ER MRI Brain 12/28/2023 negative at [facility] Etiology ? Neuropathy, [...] Pt is now under the care of Cloth Washer Dr Holm last seen 05/11/2019 He ordered [...] was last done on: 08/2022 [facility] No retinopathy Microalbumin checked on: 07/24/2021 was: [...] Encounters Date Type Department Care Team Description 08/18/2024 Refill [facility] MEDICINE [address] [place] [address] Juan R Blount MD Wheeze 08/02/2024 Refill [facility] CHC MED & PEDS [address] [place], [place] [phone] Helena Hernández ANP Primary insomnia 07/22/2024 Refill [facility] MED[facility] [address] [place] [address] Juan R Blount MD 07/16/2024 Refill [facility] [address] [place] [address] Juan R lBount MD Type 2 diabetes mellitus with hyperglycemia, with long-term current use of insulin ([facility]); Type 2 diabetes mellitus with hyperglycemia (CMS/[facility]); equipment operator intermodal yard (current) use of insulin (CMS/[facility]) 07/14/2024 Telephone [facility] [address] [place] [address] Juan R Blount MD DME from [facility] 07/12/2024 Telephone [facility] [address] [place] [address] Juan R Blount MD Durable Medical Equipment 07/11/2024 Refill [facility] MED & PEDS [address] [place], [place] [phone] Juan R Blount MD Type 2 diabetes mellitus without complication, with long-term current use of insulin ([facility]) 07/05/2024 Telephone [facility] [address] [place] [address] Juan R Blount MD [employer] [facility] [employer] (Pad, incont prevail lng max) 07/02/2024 Refill [facility] MED & PEDS [address] [place], [place] [phone] Sadia Membreno MD Primary insomnia 06/22/2024 Telephone [facility] [address] [place] [address] Juliana Goode, RN Results 06/21/2024 Orders Only [facility] [address] [place] [address] Juan R Blount MD Lumbar radiculopathy (Primary Dx) 06/17/2024 Refill [facility] [address] [place] [address] Fco Willis MD Mixed hyperlipidemia 06/17/2024 Refill [facility] [address] [place] [address] Name, MD Fco Mixed hyperlipidemia 06/17/2024 Refill [facility] [address] [place] [address] Juan R Blount MD Wheezing; Mixed hyperlipidemia 05/31/2024 Refill [facility] [address] [place] [address] Fco Willis MD 05/27/2024 Refill [facility] MED & PEDS [address] [facility] [place] [address] Juan R Blount MD Primary insomnia 05/24/2024 Refill [facility] [address] [place] [address] Juan R Blount MD Asthma, unspecified asthma severity, unspecified whether complicated, unspecified whether persistent 05/23/2024 Refill [facility] [address] [place], [place] [phone] Juan R Blount MD Essential hypertension; Asthma, unspecified asthma severity, unspecified whether complicated, unspecified whether persistent from Last 3 Months Immunizations Name Administration [...] the past 12 months, has t he [employer], gas, oil or water company threatened to [...] Name Priority Date/Time Associated Diagnosis Comments BI US BREAST LIMITED BILATERAL Routine 03/03/2024 1:30 PM EST HEPATITIS PANEL, GENERAL Routine 02/05/2024 9:25 AM EDT ALBUMIN, RANDOM URINE W/CREATININE Routine 02/03/2024 11:35 AM EDT POCT GLYCATED HEMOGLOBIN, TOTAL Routine 01/15/2024 2:21 PM EDT Type 2 diabetes mellitus without complication, with long-term current use of insulin (CMS/HCC) [facility] HISTORICAL LIPID PANEL Routine 07/24/2021 9:38 AM EDT from Last 3 Months or Most Recently Relevant to Health Maintenance Results * BI US Breast Limited Bilateral (03/03/2024 1:30 PM EST) Anatomical Region Laterality Modality Breast Bilateral Ultrasound 03/03/2024 1:30 PM EST Narrative 03/03/2024 4:08 PM EST ? [facility] [place] ? [address] [facility] ?[place] [address] ? Ultrasound Report ? Signed ? Patient: Sy,Torrie ?MR#: [id number] ?? [id number] ? : 1955 ?Acct:[id number] ? Age/Sex: 69 / F ?ADM Date: 03/03/24 ? Loc: HO.MAMMO ? Attending Dr: Juan R Bey MD ? Ordering Physician: Juan R Bey MD ?? Date of Service: 03/03/24 ?? Procedure(s): US breast BI limited mamm only ?? Accession Number(s): [id number] ? cc: Juan R Bey MD ? [...] DD/ 1330 ? TD/TT: 03/03/24 1412 ? Customs House Broker: ? Procedure Note Deepthi, Stan - 03/03/2024 [facility] [address] [place] [address] [place] [address] Ultrasound Report Signed Patient: Prabha Sy#: [id number] : 5Acct:[id number] Age/Sex: 69 / FADM Date: 03/03/24 Loc: NATALEE Attending Dr: Juan R Bey MD Ordering Physician: Juan R Bey MD Date of Service: 03/03/24 Procedure(s): US breast BI limited mamm only Accession Number(s): [id number] cc: Juan R Bey MD EXAMINATION: MM [...] Kaleb Del Valle MD 03/03/2024 04:06 PM [facility] Dictated By: Kaleb Del Valle MD Signed By: <Electronically signed by Kaleb Del Valle MD in OV> 03/03/24 1606 DD/ 1330 TD/TT: 03/03/24 1412 Customs House Broker: Juan R Vega MD IMG US PROCEDURES Fin al Result * Hepatitis Panel, General (02/05/2024 9:25 AM EDT) Hepatitis A IgM Nonreactive Nonreactive [facility] Comment:IgM antibodies to DE [place] CRUZ V not detected; does not exclude earlyacute or recovered HAV infection. ~Hepatitis B Surface Antibody NONREACTIVE Nonreactive [facility] Comment:Nonreactive: < 8.00 mIU/mL Hepatitis B Core Antibody Nonreactive Nonreactive [facility] Hepatitis C Antibody Nonreactive Nonreactive [facility] Comment:Antibodies to HCV no t detected; does not exclude early acuteHCV infection. Hepatitis B Surface Ag Negative Negative [facility] 02/05/2024 9:25 AM EDT 02/05/2024 9:25 AM EDT us Generic External Data Provider LAB BLOOD ORDERAB LES Final Result [facility] [address] [place] [phone] * (ABNORMAL) Albumin, Random Urine W/Creatinine (02/03/2024 11:35 AM EDT) Creatinine, Urine 87.94 mg/dL [facility] Microalbumin Urine 151.0 mg/L H [facility] Microalbum Creatinine Ratio Ur 171.7(H) <30 ug/mg cr [facility] Comment:Albumin/Creatinine R atio Reference Ranges: Normal: < 30 ug/mg creatinine Microalbuminuria: 30 - 300 ug/mg creatinineClinical Albuminuria: > 300 ug/mg creatinine 02/03/2024 11:3 5 AM EDT 02/03/2024 12:18 PM EDT us Generic External Data Provider LAB URINE ORDERAB LES Final Result [facility] [address] [place] [phone] * (ABNORMAL) POCT HGB A1C (01/15/2024 2:21 PM EDT) Hemoglobin A1C 12.6(A) 4.0 - 6.0 % QC Media Lot # [id number] Lot# Expiration Date Blood 01/15/2024 2:21 PM EDT us Juan R Vega MD POINT OF CARE [...] liver disease. LDL Cholesterol Calculated 62 mg/dl [facility] Comment: Desirable LDL: ? less [...] Alanine Aminotransferase 16 0 - 31 U/L [facility] Albumin Level 3.8 3.5 - 5.0 g/dL [facility] Alkaline Phosphatase 130(H) 39 - 117 U/L [facility] Anion Gap 11(L) 12 - 20 [facility] Aspartate Amino Transferase 11 5 - 31 U/L [facility] Bilirubin Total 0.7 0.0 - 1.0 mg/dL [facility] Blood Urea Nitrogen 13 9 - 16 mg/dL [facility] Calcium 9.4 8.4 - 10.2 mg/dL [facility] Carbon Dioxide 30(H) 22 - 29 mmol/L [facility] Chloride 104 96 - 108 mmol/L [facility] Creatinine, Serum 0.96 0.5 - 1.4 mg/dL [facility] Estimated Glomerular Filt Rate 58 [facility] Comment: NOTE: ??For -Luxembourger individuals, multiply the result ?by 1.210. ?? [...] Historical Provider HISTORICAL/NON ORDERABLE LABS Final Result Performing Organization Address City/State/[facility] Co de Phone Number [facility] [address] from Last 3 Months or Most Recently [place]vant [place] [address] [facility] ONE CARE < 65 [place] [phone] * Guarantor: Torrie Sy Account Type Relation to Patient Date of Phone Billing Address Personal/Family Self [address] [place] [address] * Guarantor: Torrie Sy Account Type Relation to Patient Date of Phone Billing Address Personal/Family Self [address] [place] [address] * Guarantor: Torrie Sy Account Type Relation to Patient Date of Phone Billing Address Personal/Family Self [address] [place] [address] Care Teams Poison Information Specialist Relationship Specialty Start Date End Date Juan R Blount MD [address] [place] [address] PCP - General Internal Medicine 12/09/13
--- OUTSIDE RECORDS SUMMARY | 2024-08-18 13:45 | XMS_ITS | Encounter Summary ---
Author Organization [email or web address] Address [address] [facility] 7t [place] [address] Care Team Providers Care Flower Arranger Name Role Phone Juan R Blount MD Primary Care Provide r Encounter Details Date Type Department Care Team (Late st Contact Info) Description 07/03/2022 Orders Only [facility] MED & PEDS [address] [place] [address] Luz Marina Zaragoza LPN Social History Tobacco [...] on filedocumented in this encounter Care Teams Flower Arranger Relationship Specialty Start Date End Date Juan R Blount MD [address] [place] [phone] PCP - General Internal Medicine 12/09/13 documented as of this encounter
--- OUTSIDE RECORDS SUMMARY | 2024-08-18 13:45 | XMS_ITS | Encounter Summary ---
Author Organization [facility] Address [address] [facility] 7t [place] [address] Care Team Providers Care Refrigerator Mover Name Role Phone Juan R Blount MD Primary Care Provide r Encounter Details Date Type Department Care Team (Late st Contact Info) Description 05/31/2022 Abstract [facility] MEDICINE [address] [place] [address] Juan R Blount MD [address] [place] [address] [phone] Social History Tobacco Use Types Packs/Day Years [...] on filedocumented in this encounter Care Teams Refrigerator Mover Relationship Specialty Start Date End Date Juan R Blount MD [address] [place], [place] [phone] PCP - General Internal Medicine 12/09/13 documented as of this encounter
--- OUTSIDE RECORDS SUMMARY | 2024-08-18 13:45 | XMS_ITS | Encounter Summary ---
Author Organization [employer] Address [address] [facility] [address] [address]t [place] [address] Care Team Providers Care Finish Photographer Name Role Phone Juan R Blount MD Primary Care Provide r Reason for Visit * Reason Comments Med Refill Encounter Details Date Type Department Care Team (Late st Contact Info) Description 08/18/2024 Refill [facility] MEDICINE [address] [place] [address] Juan R Blount MD [address] [place] [address] Wheeze Social History Tobacco Use Types Packs/Day Years [...] as of this encounter Visit Diagnoses Diagnosis Wheeze Wheezing documented in this encounter Additional Health Concerns Assessment Noted Time PHQ-9 Depression Total Score: 3 01/15/20 24 1:38 PM EDT documented as of this encounter Care Teams Finish Photographer Relationship Specialty Start Date End Date Juan R Blount MD [address] [place] [address] PCP - General Internal Medicine 12/09/13 documented as of this encounter
--- OUTSIDE RECORDS SUMMARY | 2024-08-18 13:45 | XMS_ITS | Encounter Summary ---
Author Organization [employer] Address [address] [facility] 7t [place] [address] Care Team Providers Care Maintenance Advisor Name Role Phone Juan R Blount MD Primary Care Provide r Encounter Details Date Type Department Care Team (Late st Contact Info) Description 05/29/2022 Orders Only [facility] MEDICINE [address] [place] [address] Cyndi Sy LPN Social History Tobacco Use [...] on filedocumented in this encounter Care Teams Maintenance Advisor Relationship Specialty Start Date End Date Juan R Blount MD [address] [place] [address] PCP - General Internal Medicine 12/09/13 documented as of this encounter
== END 2024-08-18 12:26 | disposition home or self-care (01) ==
LOC: HO.US 12:25
PROVIDERS: PCP Internal Medicine; Visit Provider Internal Medicine
DX: E04.1 Nontoxic single thyroid nodule (principal)
CPT/HCPCS: 76536

== ENCOUNTER → 2024-08-18 12:59 | Outpatient (BNV) | payer OTHER, SELFPAY | PROVIDERS: PCP Internal Medicine; Visit Provider Radiology Diagnostic Radiology | DX: E04.1 Nontoxic single thyroid nodule (principal) | CPT/HCPCS: 76536 ==

== ENCOUNTER 2024-08-23 12:36 | Outpatient (AMB) | payer OTHER, SELFPAY ==
--- NOTE | 2024-08-23 13:00 | MHC.OFFVIS ---
Vital Signs 08/23/24 13:02 Height 5 ft 6 in Weight 166 lb BMI 26.8 BP 111/56 L Blood Pressure Location Lt brachial Position Sitting Respiration 16 Pulse 101 H Pulse Source Pulse Oximeter Pulse Oximetry (%) 95 Oxygen Delivery Method Room Air Intake Visit Reasons: Cervicalgia Fruit Packer Required: No Accompanied by: Child Allergies insulin detemir Allergy (Intermediate, Verified 09/02/24 14:53) Rash penicillin V Allergy (Intermediate, Verified 09/02/24 14:53) Rash acetaminophen [From Tylenol] Allergy (Mild, Verified 09/02/24 14:53) ITCH,RASH iodine [Iodine] Allergy (Mild, Verified 09/02/24 14:53) HIVES trimerosal Allergy (Intermediate, Uncoded 09/02/24 14:53) rash Latex Gloves Allergy (Mild, Uncoded 09/02/24 14:53) Rash METAL Allergy (Mild, Uncoded 09/02/24 14:53) HIVES Medication List - Last Reconciled 08/23/24 by Micaela Garrett LPN albuterol sulfate 90 mcg/actuation 2 puffs inhalation Q6H PRN amlodipine 5 mg PO BEDTIME aspirin 81 mg PO DAILY atenolol 12.5 mg PO BID atorvastatin 40 mg PO BEDTIME blood sugar diagnostic (FreeStyle Lite Strips) four times a day blood-glucose meter (FreeStyle Lite Meter kit) As directed blood-glucose sensor (BemDiretoStyle Crystal 3 Sensor device) apply new sensor every 14 days blood-glucose,senior oracle soa developer,cont (FreeStyle Crystal 3 Bethel) Use daily to monitor blood glucose levels continuously. [Cane As directed] docusate sodium 100 mg PO BEDTIME dulaglutide (Trulicity) 4.5 mg subcut MO@0900 fluticasone propion-salmeterol 500-50 mcg/dose (Advair Diskus) 1 inh inhalation BID gabapentin 800 mg PO TID glucose (Dex4 Glucose Quick Dissolve) 16 grams (4 x 4 gram) PO Q15M PRN insulin aspart U-100 (Novolog FlexPen U-100 Insulin aspart) 18 units subcut TIDAC insulin degludec (Tresiba FlexTouch U-200 insulin) 60 units (0.3 mL) subcut BEDTIME 30 days insulin syringe-needle U-100 As directed lancets (FreeStyle Lancets) four times a day lidocaine 5% 1 appl topical BID PRN losartan 100 mg PO DAILY montelukast (Singulair) 10 mg PO BEDTIME nicotine 21 mg transdermal DAILY pen needle, diabetic (BD Ultra-Fine Janene Pen Needle) As directed four times a day pioglitazone (Actos) 15 mg PO DAILY tramadol 50 mg PO TID 90 days umeclidinium 62.5 mcg/actuation (Incruse Ellipta) 1 inh inhalation DAILY zolpidem 10 mg PO BEDTIME PRN HPI HPI Cervicalgia: Details: History of Present Illness The patient is a 69-year-old female presenting with chronic lower back and lower extremity pain. This problem initiated three years ago following a fall, where she experienced difficulty walking due to pain that radiates from the neck down to the hip and affects the right leg. The pain is severe, with a reported intensity of 8/10, preventing her from conducting daily activities and requiring wheelchair use due to incapacitating weakness and numbness. The patient has been diagnosed with lumbar disc herniation and nerve compression which are further exacerbated by diabetic peripheral neuropathy, complicating her ability to distinguish the primary cause of her walking difficulty. The interplay of chronic lumbar radiculopathy with her other diagnoses, such as fibromyalgia and myositis, adds to her overall discomfort and muscular soreness. Persistent pain and complications from longstanding Type 2 Diabetes Mellitus, indicated by insulin treatment, underpin her deterioration over the course of several years. Pain Description - Onset and Timing: Initiated approximately three years ago post-fall. - Quality and Character: Described as chronic, sharp, and radiating down the spine and into the right leg. - Primary Location: Originates from the neck, down the spine to the hip, affecting the right leg. - Exacerbating Factors: Walking, lying down on the right side. - Relieving Factors: Temporary relief with carpal tunnel splints and diabetes management. - Interference: Inability to walk unassisted, requires wheelchair, disrupts sleep and daily function. Physical Exam - Appears afebrile. - Alert and oriented. - Mood and affect appropriate. - Follows and participates in conversation appropriately. - Respiratory effort is unlabored. Results - Tests and Diagnostics: - Past MRI indicating nerve compression. - Bone density scan noted osteopenia status. Pain Management - Affect: The pain significantly impacts mood and increases frustration due to functional limitations. - Analgesia: Current pain level at 8/10, receiving unspecified diabetes-compatible pain management; exploring options due to risk of exacerbating diabetes. - Adverse Effects: Concerns with glucocorticoid therapy worsening diabetic status. - Activities of Daily Living: Depends on a wheelchair; unable to walk, perform daily tasks, or sleep properly due to pain. - Aberrant Drug Related Behaviors: None reported. [facility] Medical History CVA (cerebral vascular accident) Osteopenia Screening examination for infectious disease Insulin dependent type 2 diabetes mellitus Elevated C-reactive protein Elevated sed rate Myalgia, upper arm Knee instability Back pain at L4-L5 level Knee pain, right Knee pain, left UTI (urinary tract infection) Proteinuria Hyperlipidemia Lumbar spondylosis Fibromyalgia Syncope COPD (chronic obstructive pulmonary disease) Depression Asthma Type 2 diabetes mellitus with hyperglycemia, with long-term current use of insulin Type 2 diabetes mellitus with chronic kidney disease Chronic kidney disease, stage 3 unspecified Type 2 diabetes mellitus with diabetic polyneuropathy Essential hypertension Surgical History Hx of mammogram Hx of colonoscopy Hx of oral surgery Hx of tubal ligation Family History Father No problems noted. Mother Heart disease CVD (cardiovascular disease) Diabetes Social History Household Members: Family Housing: Apartment Do you presently have visiting nurse or other home services: No Alcohol intake: never Patient Tobacco Use Status: Current everyday Tobacco user Tobacco use type: Cigarette Cigarette Packs Per Day: 0.5 Cigarettes Per Day: 10.0 Physical Exam Vital Signs: Last Vital Signs Pulse 101 H 08/23/24 13:02 Resp 16 08/23/24 13:02 BP 111/56 L 08/23/24 13:02 Pulse Ox 95 08/23/24 13:02 Oxygen Delivery Method Room Air 08/23/24 13:02 BMI result Body Mass Index 26.8 Assessment & Plan Assessment & Plan (1) Disc degeneration, lumbar: Comment: L2/3 DDD w/ spondylolisthesis Code(s): M51.369 - Other intervertebral disc degeneration, lumbar region without mention of lumbar back pain or lower extremity pain Category: Medical Plan Plan - Follow up with spine surgery. Surgical options include spinal augmentation/fusion to alleviate nerve compression and pain from L2/3 DDD. - Reviewed risks of glucocorticoid therapy alongside diabetes management. - Continued use of Tresiba and Trulicity for diabetes management. - Monitor status and likelihood of future surgeries based on bone health. Patient was informed and verbally consented to the use of an ambient scribe for clinic note documentation during this visit. Discussion Notes I engaged in a thorough discussion with the patient about her pain related to lumbar radiculopathy and associated chronic conditions. We reviewed the possibility of surgical intervention, stressing that while it carries risks, it may address nerve compression contributing to her pain. Alternatives like glucocorticoid injections were less favorable due to diabetic considerations. Continued diabetes management to alleviate peripheral neuropathy was recommended using her current regimen. I provided insights on osteoporosis status, reiterating the need for surgical evaluations sooner rather than later to maximize potential benefits. We discussed setting up a consult with Tyler Vergara for a follow up on the surgery to ensure all aspects of care were addressed. Follow-up would be contingent upon her surgical visit; any worsening should prompt immediate medical attention. Patient Instructions - Discuss potential spine surgery with the surgeon and consider options. - Continue taking prescribed diabetes medication. - Focus on proper management of diabetes at home. - Use the wheelchair for assistance until further improvements. - Monitor any worsening in symptoms and seek medical help as needed. Coding Level of Care Code Est Pt Level 4 (78301) Diagnoses Disc degeneration, lumbar M51.369
[2024-08-23 13:02] VITALS: BP 111/56; PULSE 101; RESP 16; O2SAT 95; BMI 26.8
--- OUTSIDE RECORDS SUMMARY | 2024-08-23 14:04 | XMS_ITS | Encounter Summary ---
Author Organization [employer] Address [address] [place] [address] Care Team Providers Care Fuse Maker Name Role Phone Juan R Blount MD Primary Care Provide r Encounter Details Date Type Department Care Team (Late st Contact Info) Description 05/16/2022 Orders Only [facility] MED & PEDS [address] [place] [address] Luz Marina Zaragoza LPN Social History Tobacco [...] EST Narrative 05/28/2022 4:46 PM EST ? [facility] ? [address] ?[place] [address] ? Mammography Report ? Signed ? Patient: Sy,Torrie ?MR#: [id number] ?? [id number] ? : 1955 ?Acct:[id number] ? Age/Sex: 67 / F ?ADM Date: 05/28/22 ? Loc: HO.MAMMO ? Attending Dr: Juan R Bey MD ? Ordering Physician: Juan R Bey MD ?Results: 3.6MProbably Benign Finding - Short 6 M F/U ?? Suggested ? Date of Service: 05/28/22 ?Follow Up: 6 Month F/U ? Procedure(s): MM tomosynthesis diagnostic LT ?? Accession Number(s): [id number] ? cc: Juan R Bey MD ? [...] 1643 ? DD/ 1458 ? TD/TT: ? [place] Attorney: SK ? Procedure Note Donchela, Image - 05/28/2022 [facility] [address] [place] [address] Mammography Report Signed Patient: Torrie Sy#: [id number] : 5Acct:[id number] Age/Sex: 67 / FADM Date: 05/28/22 Loc: NATALEE Attending Dr: Juan R Bey MD Ordering Physician: Juan R Bey MD Results: 3.6MProbably Benign Finding - Short 6 M F/U Suggested Date of Service: 05/28/22Follow Up: 6 Month F/U Procedure(s): MM tomosynthesis diagnostic LT Accession Number(s): [id number] cc: Juan R Bey MD EXAMINATION: MM [...] in OV> 05/28/22 1643 DD/ 1458 TD/TT: [place] Attorney: SANTOS [facility] External Provider IMG BI PROCEDURES Edited Result - Final documented in this encounter Visit Diagnoses Not on filedocumented in this encounter Care Teams Fuse Maker Relationship Specialty Start Date End Date Juan R Blount MD [address] [place] [address] PCP - General Internal Medicine 12/09/13 documented as of this encounter
--- OUTSIDE RECORDS SUMMARY | 2024-08-23 14:04 | XMS_ITS | Encounter Summary ---
Author Organization [employer] Address [address] [facility] 7t [place] [address] Care Team Providers Care Implementation Lead Name Role Phone Juan R Blount MD Primary Care Provide r Reason for Visit * Reason Comments Med Refill Encounter Details Date Type Department Care Team (Late st Contact Info) Description 06/27/2023 Refill [facility] MED & PEDS [address] [place] [address] Aggie Guan MD [address] [place] [address] Primary insomnia Social History Tobacco Use Types [...] documented as of this encounter Care Teams Implementation Lead Relationship Specialty Start Date End Date Juan R Blount MD [address] [place] [address] PCP - General Internal Medicine 12/09/13 documented as of this encounter
--- OUTSIDE RECORDS SUMMARY | 2024-08-23 14:04 | XMS_ITS | Encounter Summary ---
Author Organization [employer] Address [address] [place] [address] Care Team Providers Care Log Sawyer Name Role Phone Juan R Blount MD Primary Care Provide r Encounter Details Date Type Department Care Team (Late st Contact Info) Description 05/16/2023 Abstract [facility] MEDICINE [address] [place] [address] Juan R Blount MD [address] [place], [place] [phone] Social History Tobacco Use Types Packs/Day Years [...] documented as of this encounter Care Teams Log Sawyer Relationship Specialty Start Date End Date Juan R Blount MD [address] [place] [address] PCP - General Internal Medicine 12/09/13 documented as of this encounter
--- OUTSIDE RECORDS SUMMARY | 2024-08-23 14:04 | XMS_ITS | Encounter Summary ---
Author Organization [employer] Address [address] [place] [address] Care Team Providers Care Seed Packer Name Role Phone Juan R Blount MD Primary Care Provide r Reason for Visit * Reason Comments Med Refill Encounter Details Date Type Department Care Team (Late st Contact Info) Description 06/17/2024 Refill [facility] MEDICINE [address] [place], [place] [phone] Name, MD Fco [address] [place] [address] Mixed hyperlipidemia Social History Tobacco Use Types [...] documented as of this encounter Care Teams Seed Packer Relationship Specialty Start Date End Date Juan R Blount MD [address] [place] [address] PCP - General Internal Medicine 12/09/13 documented as of this encounter
--- OUTSIDE RECORDS SUMMARY | 2024-08-23 14:04 | XMS_ITS | Encounter Summary ---
Author Organization [employer] Address [address] [place] [address] Care Team Providers Care Sagger Filler Name Role Phone Juan R Blount MD Primary Care Provide r Reason for Visit * Reason Comments Med Refill Encounter Details Date Type Department Care Team (Late st Contact Info) Description 02/04/2024 Refill [facility] MEDICINE [address] [place] [address] Lewis Carter MD [address] [place] [address] Social History Tobacco Use Types Packs/Day Years [...] documented as of this encounter Care Teams Sagger Filler Relationship Specialty Start Date End Date Juan R Blount MD [address] [place] [address] PCP - General Internal Medicine 12/09/13 documented as of this encounter
--- OUTSIDE RECORDS SUMMARY | 2024-08-23 14:04 | XMS_ITS | Encounter Summary ---
Author Organization [employer] Address [address] [place] [address] Care Team Providers Care Cv Rn Name Role Phone Juan R Blount MD Primary Care Provide r Encounter Details Date Type Department Care Team ([facility] st Contact Info) Description 08/18/2024 Orders Only [facility] MEDICINE [address] [place] [address] Juan R Blount MD [address] [place] [address] Social History Tobacco Use Types Packs/Day Years [...] Procedure Name Priority Date/Time Associated Diagnosis Comments US THYROID Routine 08/18/2024 12:59 PM EDT documented in this encounter Results * US Thyroid (08/18/2024 12:59 PM EDT) Anatomical Region Laterality Modality Head, Neck Ultrasound 08/18/2024 12:5 9 PM EDT Narrative 08/19/2024 7:31 AM EDT ? [facility] ?[address] ?[place] [address] ? Ultrasound Report ? Signed ? Patient: Sy,Torrie ?MR#: [id number] ?? [id number] ? : 1955 ?Acct:[id number] ? Age/Sex: 69 / F ?ADM Date: 08/18/ ? Loc: HO.US ? Attending Dr: Juan R Bey MD ? Ordering Physician: Juan R Bey MD ?? Date of Service: 04/30/25 ?? Procedure(s): US thyroid ?? Accession Number(s): [id number] ? cc: Juan R Bey MD ? EXAMINATION: ??US THYROID ? HISTORY: nontoxic single rt 3.1 cm thyroid nodule ? TECHNIQUE: Real-time grayscale ultrasound imaging was performed and ?? images were reviewed. ? COMPARISON: There are no prior studies for comparison. ? FINDINGS: ?? SIZE: The right thyroid lobe measures 4.6 x 1.5 x 1.4 cm. ??The left ?? thyroid lobe measures 4.6 x 2.8 x 3.2 cm. ?? The isthmus measures 1 mm. ? FLOW: ??Flow to the gland is normal. ? ECHOGENICITY: ??The echotexture of the gland is homogeneous. ? NODULES: ?? There is a left-sided nodule with imaging characteristics as follows: ? Nodule #: 1 ?? Location: Left mid to lower pole measuring 3.3 x 2.7 x 3.2 cm. ?? Shape: ??Wider than tall (0 points) ?? Margins: ??Smooth (0 points) ?? Echotexture: ??Isoechoic (1 point) ?? Composition: ??Solid (2 points) ?? Calcifications: ??None (0 points) ?? Total points: 3 ?? TIRADS: TR3: Mildly suspicious. ? US/US thyroid ?? IMPRESSION: ?? Solitary 3.3 x 2.7 x 3.2 cm left thyroid nodule. According to ACR ?? TI-RADS guidelines below, ultrasound-guided fine-needle aspiration is ?? recommended. ? ACR TI-RADS Guidelines ? TR1 (0 points): Benign, ??No follow-up or biopsy required ?? TR2 (2 points): Not Suspicious, ??No biopsy or follow up indicated ?? TR3 (3 points): Mildly Suspicious, ??FNA if >= 2.5 cm, Follow if >= 1.5 ?? cm ?? TR4 (4-6 points): Moderately Suspicious, FNA if >= 1.5 cm, Follow if >= ?? 1.0 cm ?? TR5 (>=7 points): Highly Suspicious, ??FNA if >= 1.0 cm, Follow if >= ?? 0.5 cm ? Electronically signed by: ??Caden Blood MD ??08/19/2024 07:29 AM EDT ?? RP ? Dictated By: ?Caden Blood MD ? Signed By: ?<Electronically signed by Caden Blood MD in OV> ?08/19/24728 ? DD/ 1259 ? TD/TT: 08/18/24 1305 ? Barrel Brander: ? Procedure Note Donotstephaneter, Image - 08/19/[address] [address] Ultrasound Report Signed Patient: Prabha Sy#: [id number] : 5Acct:[id number] Age/Sex: 69 / FADM Date: 08/18/24 Loc: HO.US Attending Dr: Juan R Bey MD Ordering Physician: Juan R Bey MD Date of Service: 08/18/24 Procedure(s): US thyroid Accession Number(s): [id number] cc: Juan R Bey MD EXAMINATION: US THYROID HISTORY: nontoxic single rt 3.1 cm thyroid nodule TECHNIQUE: Real-time grayscale ultrasound imaging was performed and images were reviewed. COMPARISON: There are no prior studies for comparison. FINDINGS: SIZE: The right thyroid lobe measures 4.6 x 1.5 x 1.4 cm. The left thyroid lobe measures 4.6 x 2.8 x 3.2 cm. The isthmus measures 1 mm. FLOW: Flow to the gland is normal. ECHOGENICITY: The echotexture of the gland is homogeneous. NODULES: There is a left-sided nodule with imaging characteristics as follows: Nodule #: 1 Location: Left mid to lower pole measuring 3.3 x 2.7 x 3.2 cm. Shape: Wider than tall (0 points) Margins: Smooth (0 points) Echotexture: Isoechoic (1 point) Composition: Solid (2 points) Calcifications: None (0 points) Total points: 3 TIRADS: TR3: Mildly suspicious. US/US thyroid IMPRESSION: Solitary 3.3 x 2.7 x 3.2 cm left thyroid nodule. According to ACR TI-RADS guidelines below, ultrasound-guided fine-needle aspiration is recommended. ACR TI-RADS Guidelines TR1 (0 points): Benign, No follow-up or biopsy required TR2 (2 points): Not Suspicious, No biopsy or follow up indicated TR3 (3 points): Mildly Suspicious, FNA if >= 2.5 cm, Follow if >= 1.5 cm TR4 (4-6 points): Moderately Suspicious, FNA if >= 1.5 cm, Follow if >= 1.0 cm TR5 (>=7 points): Highly Suspicious, FNA if >= 1.0 cm, Follow if >= 0.5 cm Electronically signed by: Caden Blood MD 08/19/2024 07:29 AM EDT RP Dictated By: Caden Blood MD Signed By: <Electronically signed by Caden Blood MD in OV> 08/19/24 0729 DD/ 1259 TD/TT: 08/18/24 1305 Barrel Brander: us Juan R Vega MD IMG US PROCEDURES Fin al Result documented in this encounter Visit Diagnoses Not on filedocumented in this encounter Additional Health Concerns Assessment Noted Time PHQ-9 Depression Total Score: 3 01/15/20 24 1:38 PM EDT documented as of this encounter Care Teams Cv Rn Relationship Specialty Start Date End Date Juan R Blount MD [address] [place] [address] PCP - General Internal Medicine 12/09/13 documented as of this encounter
--- OUTSIDE RECORDS SUMMARY | 2024-08-23 14:04 | XMS_ITS | Encounter Summary ---
Author Organization [employer] Address [address] [facility] [address]t [place] [address] Care Team Providers Care Fitness/Wellness Director Name Role Phone Juan R Blount MD Primary Care Provide r Reason for Visit * Reason Comments Med Refill Encounter Details Date Type Department Care Team (Late st Contact Info) Description 06/27/2023 Refill [facility] CH[facility] MED & PEDS [address] [place] [address] Aggie Guan MD [address] [place] [address] Primary insomnia Social History Tobacco Use Types [...] documented as of this encounter Care Teams Fitness/Wellness Director Relationship Specialty Start Date End Date Juan R Blount MD [address] [place] [address] PCP - General Internal Medicine 12/09/13 documented as of this encounter
--- OUTSIDE RECORDS SUMMARY | 2024-08-23 14:04 | XMS_ITS | Clinical Summary ---
Author Organization [facility] Address [address] [place] [address] [place] [phone] Phone Care Team Providers Care Management And Budget Analyst Name Role Phone Juan R Eaton MD [...] this topic Insurance [place] Care Teams Management And Budget Analyst Relationship Specialty Start Date End Date Juan R Eaton MD PCP - General Internal Medicine 08/23/20
--- OUTSIDE RECORDS SUMMARY | 2024-08-23 14:04 | XMS_ITS | Encounter Summary ---
Author Organization [employer] Address [address] [facility] 7t [place] [address] Care Team Providers Care Composer Teaching Artist Name Role Phone Juan R Blount MD Primary Care Provide r Reason for Visit * Reason Comments Med Refill Encounter Details Date Type Department Care Team (Late st Contact Info) Description 07/29/2023 Refill [facility] CH[facility] MED & PEDS [address] [place] [address] Aggie Guan MD [address] [place] [address] Primary insomnia Social History Tobacco Use Types [...] documented as of this encounter Care Teams Composer Teaching Artist Relationship Specialty Start Date End Date Juan R Blount MD [address] [place] [address] PCP - General Internal Medicine 12/09/13 documented as of this encounter
--- OUTSIDE RECORDS SUMMARY | 2024-08-23 14:04 | XMS_ITS | Encounter Summary ---
Author Organization [employer] Address [address] [facility] [address] 7t [place] [address] Care Team Providers Care Metrology Technician Name Role Phone Juan R Blount MD Primary Care Provide r Reason for Visit * Reason Comments Med Refill Encounter Details Date Type Department Care Team (Late st Contact Info) Description 10/23/2023 Refill [facility] CH[facility] MED & PEDS [address] [place], [place] [phone] Juan R Blount MD [address] [place], [place] [phone] Type 2 diabetes mellitus with hyperglycemia, with long-term current use of insulin ([facility]) Social History Tobacco Use Types Packs/Day [...] hyperglycemia, with long-term current use of insulin ([facility]) documented in this encounter Additional Health Concerns Assessment Noted Time PHQ-9 Depression Total Score: 8 11/20/19 23 9:41 AM EDT documented as of this encounter Care Teams Metrology Technician Relationship Specialty Start Date End Date Juan R Blount MD [address] [place] [address] PCP - General Internal Medicine 12/09/13 documented as of this encounter
--- OUTSIDE RECORDS SUMMARY | 2024-08-23 14:04 | XMS_ITS | Encounter Summary ---
Author Organization [employer] Address [address] [facility] [address] 7t [place] [address] Care Team Providers Care Department Head College Or University Name Role Phone Juan R Blount MD Primary Care Provide r Reason for Visit * Reason Comments Med Refill Encounter Details Date Type Department Care Team (Late st Contact Info) Description 04/16/2024 Refill [facility] CHC MED & PEDS [address] [place], [place] [phone] Aggie Melendez MD [address] [place] [address] Primary insomnia Social History Tobacco Use Types [...] documented as of this encounter Care Teams Department Head College Or University Relationship Specialty Start Date End Date Juan R Blount MD [address] [place] [address] PCP - General Internal Medicine 12/09/13 documented as of this encounter
--- OUTSIDE RECORDS SUMMARY | 2024-08-23 14:05 | XMS_ITS | Clinical Summary ---
Author Organization [employer] Address [address] [facility] 7t [place] [address] Care Team Providers Care Carpenter Labor Supervisor Name Role Phone Juan R Blount MD Primary Care Provide r Allergies Active Allergy Reactions Criticality Noted Date Comments Kurt Inhibitors Cough Acetaminophen Other reaction(s): rash Albuterol Other reaction(s): rash Insulin Other reaction(s): rash Iodine Other reaction(s): rash Latex Other reaction(s): unspecified Medroxyprogesterone Other reaction(s): rash Penicillin V Rash Low 01/07/2024 Medications Continuous Blood Gluc [place] Hand (FreeStyle Crystal 2 [place]) deviceIndications :Type 2 diabetes mellitus with hyperglycemia, with long-term current use of insulin (CMS/[facility]) 1 Device before breakfast, before lunch, and before evening meal. 1 each 023 Active Continuous Blood Gluc Sensor (FreeStyle Crystal 2 Sensor) miscIndications:T ype 2 diabetes mellitus with hyperglycemia, with long-term current use of insulin (CMS/HCC) 1 Device before breakfast, before lunch, and before evening meal. 2 each 023 Active Trulicity 4.5 MG/0.5ML solution pen-injectorIndic ations:Type 2 diabetes mellitus with hyperglycemia, with long-term current use of insulin (CMS/HCC) INJECT ONE PEN (= 4.5MG) SUBCUTANEOUSLY ONCE A WEEK DIRECTED 2 mL 024 Active econazole nitrate 1 % cream APPLY TOPICALLY TO AFFECTED AREA(S) TWICE DAILY 30 g 1 024 Active hydrocortisone 2.5 % cream APPLY TOPICALLY TO AFFECTED AREA(S) TWICE DAILY 30 g 1 024 Active alendronate (Fosamax) 70 MG tablet Take [...] UNITS SUBCUTANEOUSLY AT BEDTIME 9 mL 6 024 Active losartan (Cozaar) 100 MG tabletIndications :Primary hypertension TAKE 1 TABLET BY MOUTH EVERY MORNING 90 tablet 3 025 Active Aspirin Low Dose 81 MG EC tabletIndications :Type 2 diabetes mellitus with hyperglycemia, with long-term current use of insulin ([facility]) TAKE 1 TABLET BY MOUTH EVERY MORNING 90 tablet 3 025 Active amLODIPine (Norvasc) 5 MG tabletIndications :Essential hypertension TAKE 1 TABLET BY MOUTH EVERY EVENING 90 tablet 3 025 Active atenolol (Tenormin) 25 MG tabletIndications :Essential hypertension TAKE 1/2 TABLET BY MOUTH TWICE DAILY IN THE MORNING AND EVENING 90 tablet 1 025 Active albuterol (Ventolin HFA) 108 (90 Base) MCG/ACT inhalerIndication s:Asthma, unspecified asthma severity, unspecified whether complicated, unspecified whether persistent INHALE 2 PUFFS BY MOUTH EVERY 4 TO 6 HOURS NEEDED 18 g 025 Active montelukast (Singulair) 10 MG tabletIndications :Wheezing TAKE 1 TABLET BY MOUTH EVERY EVENING 90 tablet 1 025 Active atorvastatin (Lipitor) 40 MG tabletIndications :Mixed hyperlipidemia TAKE 1 TABLET BY MOUTH AT BEDTIME 90 tablet 1 025 Active BD Pen Needle Janene U/F 32G X 4 MM miscIndications:T ype 2 diabetes mellitus without complication, with long-term current use of insulin (CMS/HCC) USE DIRECTED FOUR TIMES DAILY 100 each 5 025 Active gabapentin (Neurontin) 800 MG tabletIndications :Type 2 diabetes mellitus with hyperglycemia, with long-term current use of insulin (CMS/[facility]) TAKE 1 TABLET BY MOUTH THREE TIMES DAILY IN THE MORNING, AT NOON, AND IN THE EVENING 90 tablet 2 025 Active TRUEplus Lancets 33G miscIndications:T ype 2 diabetes mellitus with hyperglycemia (CMS/HCC),intermediate (current) use of insulin (CMS/[facility]) TEST BLOOD SUGAR FOUR TIMES DAILY 300 each 11 025 Active glucose blood (FREESTYLE LITE) test stripIndications: Type 2 diabetes mellitus with hyperglycemia (CMS/HCC),intermediate (current) use of insulin ([facility]) TEST BLOOD SUGAR FOUR TIMES DAILY 300 strip 11 025 Active NovoLOG FLEXPEN 100 UNIT/ML pen INJECT 17 UNITS SUBCUTANEOUSLY THREE TIMES DAILY DIRECTED 15 mL 025 Active zolpidem (Ambien) 10 MG tabletIndications :Primary insomnia TAKE 1 TABLET BY MOUTH AT BEDTIME NEEDED FOR SLEEP 30 tablet 025 Active Incruse Ellipta 62.5 MCG/ACT aerosol powderIndications :Wheeze INHALE 1 PUFF BY MOUTH EVERY DAY AT THE SAME TIME RINSE MOUTH AFTER USING 30 each 1 025 Active Incruse Ellipta 62.5 MCG/ACT aerosol powderIndications :Wheeze INHALE 1 PUFF BY MOUTH EVERY DAY AT THE SAME TIME RINSE MOUTH AFTER USING 30 each 3 024 2024 Discontinued zolpidem (Ambien) 10 MG tabletIndications :Primary insomnia TAKE 1 TABLET BY MOUTH AT [...] Pt is now under the care of Pals Specialist Dr Holm last seen 05/11/2019 He ordered [...] Eye exam was last done on: 08/2022 [facility] No retinopathy Microalbumin checked on: 07/24/2021 was: [...] Date Type Department Care Team Description 08/18/2024 Orders Only [facility] MEDICINE [address] [place] [address] Juan R Bloutn MD 08/18/2024 Refill [facility] [address] [place] [address] Juan R Blount MD Wheeze 08/02/2024 Refill [facility] MED & PEDS [address] [place], [place] [phone] Helena Hernández ANP Primary insomnia 07/22/2024 Refill [facility] MED[facility] [address] [place] [address] Juan R Blount MD 07/16/2024 Refill [facility] [address] [place] [address] Juan R Blount MD Type 2 diabetes mellitus with hyperglycemia, with long-term current use of insulin ([facility]); Type 2 diabetes mellitus with hyperglycemia ([facility]); intermediate (current) use of insulin ([facility]) 07/14/2024 Telephone [facility] [address] [facility] [place] [address] Juan R Blount MD DME from [facility] 07/12/2024 Telephone [facility] MED[facility] [address] [place] [address] Juan R Blount MD Durable Medical Equipment 07/11/2024 Refill C [facility] MED [facility] PEDS [address] [place], [place] [phone] Juan R Blount MD Type 2 diabetes mellitus without complication, with long-term current use of insulin ([facility]) 07/05/2024 Telephone C MEDICINE [address] [place] [address] Juan R Blount MD [facility] (Pad, incont prevail lng max) 07/02/2024 Refill C [facility] PEDS [address] [place] [address] Sadia Membreno MD Primary insomnia 06/22/2024 Telephone C MEDICINE [address] [place] [address] Juliana Goode, RN Results 06/21/2024 Orders Only [facility] [address] [place] [address] Juan R Blount MD Lumbar radiculopathy (Primary Dx) 06/17/2024 Refill [facility] [address] [place] [address] Fco Willis MD Mixed hyperlipidemia 06/17/2024 Refill [facility] [address] [place] [address] Fco Willis MD Mixed hyperlipidemia 06/17/2024 Refill [facility] [address] [place] [address] Juan R Blount MD Wheezing; Mixed hyperlipidemia 05/31/2024 Refill [facility] [address] [place] [address] Name, MD Fco 05/27/2024 Refill [facility] MED & PEDS [address] [place] [address] Juan R Blount MD Primary insomnia from Last 3 Months Immunizations Name Administration [...] housing situation today? I have olivercaleb romero 01/13/[address] you [...] Lipid Panel 07/24/2022 07/24/2021, 07/07/2020 COVID-19 Vaccine (5 - season) 2023 04/29/2022, 12/11/2021, 07/11/2021, Additional history [...] US THYROID Routine 08/18/2024 12:59 PM EDT BI US BREAST LIMITED BILATERAL Routine 03/03/2024 1:30 PM EST HEPATITIS PANEL, GENERAL Routine 02/05/2024 9:25 AM EDT ALBUMIN, RANDOM URINE W/CREATININE Routine 02/03/2024 11:35 AM EDT POCT GLYCATED HEMOGLOBIN, TOTAL Routine 01/15/2024 2:21 PM EDT Type 2 diabetes mellitus without complication, with long-term current use of insulin (CMS/HCC) WILL HISTORICAL LIPID PANEL Routine 07/24/2021 9:38 AM EDT from Last 3 Months or Most Recently Relevant to Health Maintenance Results * US Thyroid (08/18/2024 12:59 PM EDT) Anatomical Region Laterality Modality Head, Neck Ultrasound 08/18/2024 12:5 9 PM EDT Narrative 08/19/2024 7:31 AM EDT ? [facility] ?[address] ?[place] [address] ? Ultrasound Report ? Signed ? Patient: Torrie Sy ?MR#: [id number] ?? [id number] ? : 1955 ?Acct:[id number] ? Age/Sex: 69 / F ?ADM Date: 08/18/24 ? Loc: HO.US ? Attending Dr: Juan R Bey MD ? Ordering Physician: Juan R Bey MD ?? Date of Service: 08/18/24 ?? Procedure(s): US thyroid ?? Accession Number(s): [id number] ? cc: Juan R Bey MD ? [...] DD/ 1259 ? TD/TT: 08/18/24 1305 ? Distance Learning Coordinator: ? Procedure Note Stan Lacey - 08/19/[address] [address] Ultrasound Report Signed Patient: Prabha Sy#: [id number] : 5Acct:[id number] Age/Sex: 69 / FADM Date: 08/18/24 Loc: HO.US Attending Dr: Juan R Bey MD Ordering Physician: Juan R Bey MD Date of Service: 08/18/24 Procedure(s): US thyroid Accession Number(s): [id number] cc: Juan R Bey MD EXAMINATION: US [...] 08/19/24 0729 DD/ 1259 TD/TT: 08/18/24 1305 Distance Learning Coordinator: us Juan R Vega MD IMG US PROCEDURES Fin al Result * BI US Breast Limited Bilateral (03/03/2024 1:30 PM EST) Anatomical Region Laterality Modality Breast Bilateral Ultrasound 03/03/2024 1:30 PM EST Narrative 03/03/2024 4:08 PM EST ? [facility] ? [address] ?[place] [address] ? Ultrasound Report ? Signed ? Patient: Sy,Torrie ?MR#: [id number] ? : 1955 ?Acct:[id number] ? Age/Sex: 69 / F ?ADM Date: 03/03/24 ? Loc: HO.MAMMO ? Attending Dr: Juan R Bey MD ? Ordering Physician: Juan R Bey MD ?? Date of Service: 03/03/24 ?? Procedure(s): US breast BI limited mamm only ?? Accession Number(s): [id number] ? cc: Juan R Bey MD ? [...] by Kaleb Del Valle MD in OV> ?03/03/241605 ? DD/ 1330 ? TD/TT: 03/03/24 1412 ? Distance Learning Coordinator: ? Procedure Note Deepthi, Stan - 03/03/2024 [facility] [address] [place] [address] Ultrasound Report Signed Patient: Torrie Sy#: [id number] : 5Acct:[id number] Age/Sex: 69 / FADM Date: 03/03/24 Loc: NATALEE Attending Dr: Juan R Bey MD Ordering Physician: Juan R Bey MD Date of Service: 03/03/24 Procedure(s): US breast BI limited mamm only Accession Number(s): [id number] cc: Juan R Bey MD EXAMINATION: MM [...] Kaleb Del Valle MD 03/03/2024 04:06 PM [facility] Dictated By: Kaleb Del Valle MD Signed By: <Electronically signed by Kaleb Del Valle MD in OV> 03/03/24 1606 DD/ 1330 TD/TT: 03/03/24 1412 Distance Learning Coordinator: us Juan R Vega MD IMG US PROCEDURES Fin al Result * Hepatitis Panel, General (02/05/2024 9:25 AM EDT) Hepatitis A IgM Nonreactive Nonreactive [facility] Comment:IgM antibodies to DE [place] CRU[place] V not detected; does not exclude earlyacute or recovered HAV infection. ~Hepatitis B Surface Antibody NONREACTIVE Nonreactive [facility] Comment:Nonreactive: < 8.00 mIU/mL Hepatitis B Core Antibody Nonreactive Nonreactive [facility] Hepatitis C Antibody Nonreactive Nonreactive [facility] Comment:Antibodies to HCV no t detected; does not exclude early acuteHCV infection. Hepatitis B Surface Ag Negative Negative [facility] 02/05/2024 9:25 AM EDT 02/05/2024 9:25 AM EDT us Generic External Data Provider LAB BLOOD ORDERAB LES Final Result [facility] [address] [place] [phone] * (ABNORMAL) Albumin, Random Urine W/Creatinine (02/03/2024 11:35 AM EDT) Creatinine, Urine 87.94 mg/dL [facility] Microalbumin Urine 151.0 mg/L [facility] Microalbum Creatinine Ratio Ur 171.7(H) <30 ug/mg cr [facility] Comment:Albumin/Creatinine R atio Reference Ranges: Normal: < 30 ug/mg creatinine Microalbuminuria: 30 - 300 ug/mg creatinineClinical Albuminuria: > 300 ug/mg creatinine 02/03/2024 11:3 5 AM EDT 02/03/2024 12:18 PM EDT us Generic External Data Provider LAB URINE ORDERAB LES Final Result [facility] [address] [place] [phone] * (ABNORMAL) POCT HGB A1C (01/15/2024 2:21 PM EDT) Hemoglobin A1C 12.6(A) 4.0 - 6.0 % QC Media Lot # [id number] Lot# Expiration Date Blood 01/15/2024 2:21 PM EDT Juan R Vega MD POINT OF CARE TEST EN TER/EDIT ORDERABLES Final Result * (ABNORMAL) LIPID PANEL (07/24/2021 9:38 AM EDT) Cholesterol 124 mg/dL [facility] Comment: Desirable Cholesterol: ?less than 200 mg/dL Borderline High Cholesterol: ??200-239 mg/dL High Cholesterol: ? greater than 239 mg/dL HDL Cholesterol 37 mg/dL [facility] Comment: Desirable HDL: ??greater than [...] 58 [facility] Comment: NOTE: ??For -Prydeinig individuals, multiply the result ?by 1.210. ?? [...] Historical Provider HISTORICAL/NON ORDERABLE LABS Final Result [facility] [address] [place] [address], from Last 3 Months or Most Recently Relevant to Health Maintenance Insurance [facility] < 65 Care Teams Carpenter Labor Supervisor Relationship Specialty Start Date End Date Juan R Blount MD [address] [place] [address] PCP - General Internal Medicine 12/09/13
--- OUTSIDE RECORDS SUMMARY | 2024-08-23 14:05 | XMS_ITS | Encounter Summary ---
Author Organization [employer] Address [address] [facility] 7t [place] [address] Care Team Providers Care Sprue Knocker Name Role Phone Juan R Blount MD Primary Care Provide r Encounter Details Date Type Department Care Team (Late st Contact Info) Description 06/11/2022 Orders Only [facility] CHC MED & PEDS [address] [place] [address] Luz Marina Zaragoza LPN Social History Tobacco [...] on filedocumented in this encounter Care Teams Sprue Knocker Relationship Specialty Start Date End Date Juan R Blount MD [address] [place] [address] PCP - General Internal Medicine 12/09/13 documented as of this encounter
--- OUTSIDE RECORDS SUMMARY | 2024-08-23 14:05 | XMS_ITS | Encounter Summary ---
Author Organization [employer] Address [address] [facility] 7t [place] [address] Care Team Providers Care Laboratory Director Name Role Phone Juan R Blount MD Primary Care Provide r Encounter Details Date Type Department Care Team (Late st Contact Info) Description 07/03/2022 Orders Only [facility] CHC MED & PEDS [address] [place] [address] Luz Marina Zaragoza LPN Social History Tobacco [...] on filedocumented in this encounter Care Teams Laboratory Director Relationship Specialty Start Date End Date Juan R Blount MD [address] [place] [address] PCP - General Internal Medicine 12/09/13 documented as of this encounter
--- OUTSIDE RECORDS SUMMARY | 2024-08-23 14:05 | XMS_ITS | Encounter Summary ---
Author Organization [employer] Address 75 [facility] 7t [place] [address] Care Team Providers Care Sewer Repairer Name Role Phone Juan R Blount MD Primary Care Provide r Encounter Details Date Type Department Care Team (Late st Contact Info) Description 05/29/2022 Orders Only [facility] MEDICINE [address] [place] [address] Cyndi Sy LPN Social History Tobacco Use [...] on filedocumented in this encounter Care Teams Sewer Repairer Relationship Specialty Start Date End Date Juan R Blount MD [address] [place] [address] PCP - General Internal Medicine 12/09/13 documented as of this encounter
--- OUTSIDE RECORDS SUMMARY | 2024-08-23 14:05 | XMS_ITS | Encounter Summary ---
Author Organization [employer] [facility] Address [address] [facility] 7t [place] [address] Care Team Providers Care Paper Cup Machine Operator Name Role Phone Juan R Blount MD Primary Care Provide r Encounter Details Date Type Department Care Team (Late st Contact Info) Description 05/31/2022 Abstract [facility] MEDICINE [address] [place] [address] Juan R Blount MD [address] [place], [place] [phone] Social History Tobacco Use Types Packs/Day Years [...] on filedocumented in this encounter Care Teams Paper Cup Machine Operator Relationship Specialty Start Date End Date Juan R Blount MD [address] [place], [place] [phone] PCP - General Internal Medicine 12/09/13 documented as of this encounter
--- OUTSIDE RECORDS SUMMARY | 2024-08-23 14:05 | XMS_ITS | Encounter Summary ---
Author Organization [employer] Address [address] [facility] [address] [place] [address] Care Team Providers Care Client Account Representative Name Role Phone Juan R Blount MD Primary Care Provide r Reason for Visit * Reason Comments Med Refill Encounter Details Date Type Department Care Team (Late st Contact Info) Description 08/18/2024 Refill [facility] MEDICINE [address] [place] [address] Juan R Blount MD [address] [place] [address] Wheeze Social History Tobacco Use Types Packs/Day [...] documented as of this encounter Care Teams Client Account Representative Relationship Specialty Start Date End Date Juan R Blount MD [address] [place] [address] PCP - General Internal Medicine 12/09/13 documented as of this encounter
--- OUTSIDE RECORDS SUMMARY | 2024-08-23 14:05 | XMS_ITS | Patient Health Record ---
Author Organization [facility] Address [address] [place] [address] Care Team Providers Care Office Analyst Name Role Phone Angelito Vega MD, Juan R Primary Care Provide r Caden Berry [phone] Reason For Referral No Information Encounters Encounter Location Date Provider Diagnosis [facility] [address] [place] [address] 05/24/2024 Caden Huffman Plan Of Treatment Next Appt Details Provider Name:Caden Huffman , 09/28/2024 10:10:00 AM, [address], [address], [place], [address], Insurance Providers Payer Name Payer Address Payer Phone Subscriber Number Group Number Insured Name Patient Relationship to Insured Coverage Start Date Coverage End Date [facility] [address] [place] [address] [id number] MERCEDES BRUSH Self - patient is the insured
--- OUTSIDE RECORDS SUMMARY | 2024-08-23 14:05 | XMS_ITS | Encounter Summary ---
Author Organization [employer] [facility] Address [address] [facility] 7t [place] [address] Care Team Providers Care Multiple Pressure Riveter Operator Name Role Phone Juan R Blount MD Primary Care Provide r Encounter Details Date Type Department Care Team (Late st Contact Info) Description 10/29/2022 Abstract [facility] MEDICINE [address] [place] [address] Juan R Blount MD [address] [place], [place] [phone] Social History Tobacco Use Types Packs/Day Years [...] on filedocumented in this encounter Care Teams Multiple Pressure Riveter Operator Relationship Specialty Start Date End Date Juan R Blount MD [address] [place], [place] [phone] PCP - General Internal Medicine 12/09/13 documented as of this encounter
--- OUTSIDE RECORDS SUMMARY | 2024-08-23 14:05 | XMS_ITS | Encounter Summary ---
Author Organization [employer] Address [address] [facility] 7t [place] [address] Care Team Providers Care Waste Disposal Attendant Name Role Phone Juan R Blount MD Primary Care Provide r Reason for Visit * Reason Onset Date Comments Med Refill 12/03/2022 Encounter Details Date Type Department Care Team ([facility] st Contact Info) Description 12/03/2022 Refill [facility] MEDICINE [address] [place] [address] Juan R Blount MD [address] [place] [address] Asthma, unspecified asthma severity, unspecified whether complicated, [...] documented as of this encounter Care Teams Waste Disposal Attendant Relationship Specialty Start Date End Date Juan R Blount MD [address] [place] [address] PCP - General Internal Medicine 12/09/13 documented as of this encounter
== END 2024-08-23 13:53 | disposition home or self-care (01) ==
LOC: HO.PMC 12:36
PROVIDERS: PCP Internal Medicine; Referring Provider Physician Assistant; Visit Provider Internal Medicine
DX: M51.369 Other intervertebral disc degeneration, lumbar region without mention of lumbar back pain or lower extremity pain (principal)
CPT/HCPCS: 99214

== ENCOUNTER → 2024-08-23 12:36 | Outpatient (BNVA) | payer OTHER, SELFPAY | PROVIDERS: PCP Internal Medicine; Referring Provider Physician Assistant; Visit Provider Internal Medicine | DX: M51.369 Other intervertebral disc degeneration, lumbar region without mention of lumbar back pain or lower extremity pain (principal) | CPT/HCPCS: 99212 ==

== ENCOUNTER 2024-09-01 12:35 | Outpatient (REF) | payer OTHER, SELFPAY ==
--- NOTE | ~2024-09-01 | US_ITS ---
EXAMINATION: MM DIAGNOSTIC DIGITAL BREAST TOMOSYNTHESIS, RIGHT Limited right breast ultrasound. CLINICAL INFORMATION: 6 month follow-up for hypoechoic oval solid mass versus complicated cyst on ultrasound in the right breast on its 10:00 4 7 m from the nipple. COMPARISON: Mammography: Priors on PACS. TECHNIQUE: Digital breast tomosynthesis is performed in both the craniocaudal and mediolateral oblique views along with computer-aided detection (CAD). Synthesized 2D images are generated from the tomosynthesis. FINDINGS: There are scattered areas of fibroglandular density (ACR BI-RADS breast composition Category b). There is a developing focal asymmetry with associated architectural distortion in the upper outer breast posterior depth. Circumscribed oval mass in the upper outer quadrant middle depth again seen is stable from prior. No suspicious calcifications or other abnormal findings. Targeted color Doppler ultrasound scanning at 10:00 4 7 m from nipple again demonstrates a hypoechoic oval circumscribed solid mass versus complicated cyst measuring 8 x 6 x 4 mm overall not significantly changed from prior ultrasound. Targeted color Doppler ultrasound just posterior to the solid mass versus complicated cyst demonstrates an ill-defined hyperechoic and hypoechoic heterogeneous area which is a questionable correlate for the developing focal asymmetry with distortion on mammography. US/US breast RT limited mamm only IMPRESSION: 1. Solid mass versus complicated cyst at 10:00 3 cm from nipple. Recommend 6 month follow-up ultrasound for further evaluation of stability. 2. Developing focal asymmetry with associated distortion the upper outer right breast posterior depth. Recommend stereotactic core needle biopsy at this time. If stereotactic core needle biopsy cannot be performed due to patients physical limitations then recommend attempt at ultrasound-guided core needle biopsy at the previously seen area posterior to the 10:00 mass described above at approximately 10:00 6 cm from the nipple. Recommend clinical correlation to ensure clip matches the developing focal asymmetry with distortion. ASSESSMENT: BI-RADS BI-RADS 4 - Suspicious finding RECOMMENDATION: Biopsy recommended Results were provided to the patient at time of visit by the technologist. This patient's information was entered into a reminder system with a target due date for their next mammogram. Electronically signed by: Gabriella Campuzano DO 09/01/2024 02:29 PM EDT
--- OUTSIDE RECORDS SUMMARY | 2024-09-01 12:58 | XMS_ITS | Patient Health Record ---
Author Organization [facility] Address [address] [place] [address] Care Team Providers Care Operating Room Surgical Technician Name Role Phone Angelito Vega MD, Juan R Primary Care Provide r Caden Berry [phone] Reason For Referral No Information Encounters Encounter Location Date Provider Diagnosis [facility] [address] [place] [address] 05/24/2024 Caden Huffman Plan Of Treatment Next Appt Details Provider Name:Caden Huffman , 09/28/2024 10:10:00 AM, [address], [address], [place], [address], Insurance Providers Payer Name Payer Address Payer Phone Subscriber Number Group Number Insured Name Patient Relationship to Insured Coverage Start Date Coverage End Date [facility] [address] [place] [phone] [id number] MERCEDES BRUSH Self - patient is the insured
--- OUTSIDE RECORDS SUMMARY | 2024-09-01 12:58 | XMS_ITS ---
Author Organization [facility] Address [address] [place] [address] Care Team Providers Care Registered Nurse Surgical Services Name Role Phone Angelito Vega MD, Juan R Primary Care Provide Caden Jordan [phone] REASON FOR VISIT R/S OV Encounters Encounter Location Date Provider Diagnosis [facility] [address] [place] [address] 05/24/2024 Caden Huffman Plan Of Treatment Next Appt Details Provider Name:Caden Huffman , 09/28/2024 10:10:00 AM, [address], [address], [place], [address], Progress Notes * MERCDEES BRUSHDOB:[birth year] (69 yo M)Acc No.[id number]:05/24/2024 Patient:?MERCEDES BRUSH :1955???Age:69 Y???Sex:Male Address:[address], [place], [address] * true * Date:? Generated for Printi angelica/Bobbi/eTransmitting on:?09/01/2024 12:58 PM EDT
--- OUTSIDE RECORDS SUMMARY | 2024-09-01 12:58 | XMS_ITS | Clinical Summary ---
Author Organization [facility] Address [address] [place] [address] Phone Care Team Providers Care Acid Adjuster Name Role Phone Juan R Eaton MD [...] this topic Insurance [place] Commonwealth Care Teams Acid Adjuster Relationship Specialty Start Date End Date Juan R Eaton MD PCP - General Internal Medicine 08/23/20
--- OUTSIDE RECORDS SUMMARY | 2024-09-01 12:58 | XMS_ITS ---
Author Organization [facility] Address [address] [place] [address] Care Team Providers Care Fitness Plan Coordinator Name Role Phone Angelito Vega MD, Juan R Primary Care Provide Caden Jordan [phone] REASON FOR VISIT Patient presents today for a COLON SCREENING Encounters Encounter Location Date Provider Diagnosis [facility] [address] [place] [address] 05/25/2024 Caden Huffman Plan Of Treatment Next Appt Details Provider Name:Caden Huffman , 09/28/2024 10:10:00 AM, [address], [address], [place], [address], Progress Notes * KAM BRUSHNITADOB:[birth year] (69 yo M)Acc No.[id number]:05/25/2024 Progress Notes Patient:?MERCEDES BRUSH Provider:?Caden Huffman MD :1955???Age:69 Y???Sex:Male Mark e:05/25/2024 Address:[address] [place] [address], [place], [id number] Pcp:Juan R montalvo MD Subjective: * Chief [...] Huffman MD Date:? 025 Generated for Deirdre dominguez/Bobbi/eTmalenasmitting on:?09/01/2024 12:57 PM EDT
== END 2024-09-01 12:36 | disposition home or self-care (01) ==
LOC: HO.MAMMO 12:35
PROVIDERS: PCP Internal Medicine; Visit Provider Internal Medicine
DX: N64.1 Fat necrosis of breast (principal)
CPT/HCPCS: 76642; 77061; 77065

== ENCOUNTER → 2024-09-01 13:00 | Outpatient (BNV) | payer OTHER, SELFPAY | PROVIDERS: PCP Internal Medicine; Visit Provider Internal Medicine | DX: N60.01 Solitary cyst of right breast (principal); R92.8 Other abnormal and inconclusive findings on diagnostic imaging of breast | CPT/HCPCS: 76642; 77065; G0279 ==

== ENCOUNTER 2024-09-02 14:33 | Outpatient (AMB) | payer OTHER, SELFPAY ==
--- NOTE | 2024-09-02 14:42 | MHC.OFFVIS ---
Vital Signs 09/02/24 14:50 Height 5 ft 6 in Weight 166 lb BMI 26.8 BP 136/52 L Blood Pressure Location Lt brachial Position Sitting Pulse 110 H Intake Visit Reasons: (R) breast stereo bx (R) up out quad asymmetry Intake Note: Patient is seen in office for stereo biopsy CONSULT of the right breast, upper outer quadrant asymmetry. Pt c/o: pain in the right ribs, denies concerns with the breast, no prior breast surgeries, no fm hx of breast cancer, first child at age of 17 yrs old, no to breast feeding Pediatric Occupational Therapist Required: No Disability Liaison Officer: Disability Liaison Officer Present Accompanied by: Self / Same As Patient Allergies insulin detemir Allergy (Intermediate, Verified 09/02/24 14:53) Rash penicillin V Allergy (Intermediate, Verified 09/02/24 14:53) Rash acetaminophen [From Tylenol] Allergy (Mild, Verified 09/02/24 14:53) ITCH,RASH iodine [Iodine] Allergy (Mild, Verified 09/02/24 14:53) HIVES trimerosal Allergy (Intermediate, Uncoded 09/02/24 14:53) rash Latex Gloves Allergy (Mild, Uncoded 09/02/24 14:53) Rash METAL Allergy (Mild, Uncoded 09/02/24 14:53) HIVES Medication List - Last Reconciled 09/03/24 by George Bearden MD albuterol sulfate 90 mcg/actuation 2 puffs inhalation Q6H PRN amlodipine 5 mg PO BEDTIME aspirin 81 mg PO DAILY atenolol 12.5 mg PO BID atorvastatin 40 mg PO BEDTIME blood sugar diagnostic (FreeStyle Lite Strips) four times a day blood-glucose meter (FreeStyle Lite Meter kit) As directed blood-glucose sensor (FreeStyle Crystal 3 Sensor device) apply new sensor every 14 days blood-glucose,lighting fixture installer,cont (FreeStyle Crystal 3 Bloxom) Use daily to monitor blood glucose levels continuously. [Cane As directed] docusate sodium 100 mg PO BEDTIME dulaglutide (Trulicity) 4.5 mg subcut MO@0900 fluticasone propion-salmeterol 500-50 mcg/dose (Advair Diskus) 1 inh inhalation BID gabapentin 800 mg PO TID glucose (Dex4 Glucose Quick Dissolve) 16 grams (4 x 4 gram) PO Q15M PRN insulin aspart U-100 (Novolog FlexPen U-100 Insulin aspart) 18 units subcut TIDAC insulin degludec (Tresiba FlexTouch U-200 insulin) 60 units (0.3 mL) subcut BEDTIME 30 days insulin syringe-needle U-100 As directed lancets (FreeStyle Lancets) four times a day lidocaine 5% 1 appl topical BID PRN losartan 100 mg PO DAILY montelukast (Singulair) 10 mg PO BEDTIME nicotine 21 mg transdermal DAILY pen needle, diabetic (BD Ultra-Fine Janene Pen Needle) As directed four times a day pioglitazone (Actos) 15 mg PO DAILY tramadol 50 mg PO TID 90 days umeclidinium 62.5 mcg/actuation (Incruse Ellipta) 1 inh inhalation DAILY zolpidem 10 mg PO BEDTIME PRN HPI Comments Details: 69-year-old female patient with a previous history of a CVA with right-sided weakness, COPD, type 2 diabetes, chronic kidney disease stage 3, and essential hypertension presenting following a recent mammogram and ultrasound performed as a six-month follow-up to a density in the right breast at the 10 o'clock position, 3 cm from the nipple performed on 09/01/2024. This lesion was again demonstrated in the 10 o'clock position approximately 3 cm from the nipple was felt to be either a solid versus complicated cyst and six-month follow-up ultrasound recommended. Also noted however was a focal asymmetry associated with distortion of the upper outer right breast in the posterior depth. This was felt to be suspicious for malignancy on a stereotactic guided core biopsy was recommended. This was also located in the 10:00 position approximately 6 cm from the nipple, posterior depth. The patient denies any prior history of breast problems or breast surgery. Her family history is negative for breast cancer. Her menarche was the age of 11. She is G5, and had her 1st child to the age of 17. [facility] Medical History CVA (cerebral vascular accident) Osteopenia Screening examination for infectious disease Insulin dependent type 2 diabetes mellitus Elevated C-reactive protein Elevated sed rate Myalgia, upper arm Knee instability Back pain at L4-L5 level Knee pain, right Knee pain, left UTI (urinary tract infection) Proteinuria Hyperlipidemia Lumbar spondylosis Fibromyalgia Syncope COPD (chronic obstructive pulmonary disease) Depression Asthma Type 2 diabetes mellitus with hyperglycemia, with long-term current use of insulin Type 2 diabetes mellitus with chronic kidney disease Chronic kidney disease, stage 3 unspecified Type 2 diabetes mellitus with diabetic polyneuropathy Essential hypertension Surgical History Hx of mammogram Hx of colonoscopy Hx of oral surgery Hx of tubal ligation Family History Father No problems noted. Mother Heart disease CVD (cardiovascular disease) Diabetes Social History Household Members: Family Housing: Apartment Do you presently have visiting nurse or other home services: No Alcohol intake: never Patient Tobacco Use Status: Current everyday Tobacco user Tobacco use type: Cigarette Cigarette Packs Per Day: 0.5 Cigarettes Per Day: 10.0 Female Reproductive History Menstrual Age of Menarche: 11 Age of menopause: 51 Total pregnancies: 5 Number of Living Children: 5 Review of Systems Const All systems reviewed & are unremarkable except as noted in HPI and below Physical Exam Vital Signs: Last Vital Signs Pulse 110 H 09/02/24 14:50 BP 136/52 L 09/02/24 14:50 BMI result Body Mass Index 26.8 Const General: no acute distress Nutritional Appearance: well nourished Orientation/consciousness: patient oriented x3 Limitations: wheelchair HEENT Head: Yes normocephalic and Yes atraumatic Chest Other: Right breast: Palpable mass noted in the upper outer quadrant, 10 o'clock position corresponding to the abnormality seen on mammogram with no definite skin changes appreciated. Mass measures approximately 1.5-2 cm in diameter. No skin changes or nipple discharge could be expressed. No other palpable masses and no enlarged lymph nodes. Left breast: No skin change, nipple discharge, nipple retraction, palpable mass or enlarged lymph nodes. Chest/axillae images: 1. Resp Effort & Inspection: normal respiratory effort, no audible wheezes, no cough and no respiratory distress Neuro General: patient oriented x3 Assessment & Plan Assessment & Plan (1) Abnormal mammogram of right breast: Code(s): R92.8 - Other abnormal and inconclusive findings on diagnostic imaging of breast Category: Medical Plan 69-year-old female patient presenting with a recent follow-up mammogram and ultrasound which revealed a density in the 10 o'clock position of the right breast approximately 6 cm from the nipple felt to be suspicious for malignancy and biopsy is recommended. The patient was unable to tolerate a prone stereotactic biopsy therefore referral will be made to [facility] for an upright stereotactic biopsy. I reviewed the images with the patient and discussed the procedure in detail. She expressed understanding and agrees with the plan. I have asked her to return approximately 1 week following the biopsy to review the pathology results and discuss treatment options. Orders: Orders MM stereotactic biopsy RT 09/02/24 R92.8 - Other abnormal and inconclusive findings on diagnostic imaging of breast Coding Level of Care Code New Pt Level 4 (67144) Diagnoses Abnormal mammogram of right breast R92.8
[2024-09-02 14:50] VITALS: BP 136/52; PULSE 110; BMI 26.8
--- OUTSIDE RECORDS SUMMARY | 2024-09-02 15:11 | XMS_ITS | Encounter Summary ---
Author Organization [employer] Address [address] [place] [address] Care Team Providers Care Tour Consultant Name Role Phone Jua nR Blount MD Primary Care Provide r Reason for Visit * Reason Comments Med Refill Encounter Details Date Type Department Care Team (Late st Contact Info) Description 06/27/2023 Refill [facility] [address] [place] [address] Aggie Guan MD [address] [place] [address] Primary insomnia Social History Tobacco Use Types [...] documented as of this encounter Care Teams Tour Consultant Relationship Specialty Start Date End Date Juan R Blount MD [address] [place] [id number] PCP - General Internal Medicine 12/09/13 [facility] Endocrinology 08/23/24 documented as of this encounter
--- OUTSIDE RECORDS SUMMARY | 2024-09-02 15:11 | XMS_ITS | Encounter Summary ---
Author Organization [employer] Address [address] [place] [address] Care Team Providers Care Assistant Pastry Chef Name Role Phone Juan R Blount MD Primary Care Provide r Reason for Visit * Reason Comments Med Refill Encounter Details Date Type Department Care Team ([facility] st Contact Info) Description 02/04/[address] [facility] [address] [place] [address] Lewis Carter MD [address] [place] [address] Social History Tobacco Use Types Packs/Day Years [...] documented as of this encounter Care Teams Assistant Pastry Chef Relationship Specialty Start Date End Date Juan R Blount MD [address] [place] [address] PCP - General Internal Medicine 12/09/13 [facility] Sutton Endocrinology 08/23/24 documented as of this encounter
--- OUTSIDE RECORDS SUMMARY | 2024-09-02 15:11 | XMS_ITS | Clinical Summary ---
Author Organization [facility] Address [address] [place] [place] [phone] Phone Care Team Providers Care Panel Gluer Name Role Phone Juan R Eaton MD [...] this topic Insurance Commonwealth Commonwealth Care Teams Panel Gluer Relationship Specialty Start Date End Date Juan R Eaton MD PCP - General Internal Medicine 08/23/20
--- OUTSIDE RECORDS SUMMARY | 2024-09-02 15:11 | XMS_ITS ---
Author Organization [facility] Address [address] [place] [address] Care Team Providers Care Seal Delivery Vehicle Officer Name Role Phone Angelito Vega MD, Juan R Primary Care Provide Caden Jordan [phone] REASON FOR VISIT R/S OV Encounters Encounter Location Date Provider Diagnosis [facility] [address] [place] [address] 05/24/2024 Caden Huffman Plan Of Treatment Next Appt Details Provider Name:Caden Huffman , 09/28/2024 10:10:00 AM, [address], [address], [place], [address], Progress Notes * MERCEDES BRUSHDOB:[birth year] (69 yo M)Acc No.[id number]:05/24/2024 Patient:?MERCEDES BRUSH :1955???Age:69 Y???Sex:Male Address:[address], [place], [address] * true * Date:? Generated for Printi angelica/Bobbi/eTransmitting on:?09/02/2024 03:10 PM EDT
--- OUTSIDE RECORDS SUMMARY | 2024-09-02 15:11 | XMS_ITS | Encounter Summary ---
Author Organization [employer] Address [address] [place] [address] Care Team Providers Care Shook Machine Operator Name Role Phone Juan R Blount MD Primary Care Provide r Reason for Visit * Reason Comments Med Refill Encounter Details Date Type Department Care Team (Late st Contact Info) Description 08/26/2024 Refill [facility] [address] [place], [place] [id number] Juan R Blount MD [address] [place] [address] Primary insomnia Social History Tobacco Use Types [...] documented as of this encounter Care Teams Shook Machine Operator Relationship Specialty Start Date End Date Juan R Blount MD [address] [place] [address] PCP - General Internal Medicine 12/09/13 Sh[facility] Sutton Endocrinology 08/23/24 documented as of this encounter
--- OUTSIDE RECORDS SUMMARY | 2024-09-02 15:11 | XMS_ITS | Encounter Summary ---
Author Organization [employer] Address [address] [place] [address] Care Team Providers Care Traffic Sign Erection Supervisor Name Role Phone Juan R Blount MD Primary Care Provide r Encounter Details Date Type Department Care Team ([facility] st Contact Info) Description 06/11/2022 Orders Only [facility] [address] [place] [address] Luz Marina Zaragoza LPN Social History Tobacco [...] on filedocumented in this encounter Care Teams Traffic Sign Erection Supervisor Relationship Specialty Start Date End Date Juan R Blount MD [address] [place] [phone] PCP - General Internal Medicine 12/09/13 Sh[facility] Sutton Endocrinology 08/23/24 documented as of this encounter
--- OUTSIDE RECORDS SUMMARY | 2024-09-02 15:11 | XMS_ITS | Encounter Summary ---
Author Organization [employer] Address [address] [place] [address] Care Team Providers Care Infant Room Teacher Name Role Phone Juan R Blount MD Primary Care Provide r Reason for Visit * Reason Onset Date Comments Med Refill 12/03/2022 Encounter Details Date Type Department Care Team (Late st Contact Info) Description 12/03/2022 Refill [facility] [address] [place] [address] Juan R Blount MD [address] [place] [address] Asthma, unspecified asthma severity, unspecified whether complicated, [...] documented as of this encounter Care Teams Infant Room Teacher Relationship Specialty Start Date End Date Juan R Blount MD [address] [place] [address] PCP - General Internal Medicine 12/09/13 Shasta Sutton Endocrinology 08/23/24 documented as of this encounter
--- OUTSIDE RECORDS SUMMARY | 2024-09-02 15:11 | XMS_ITS | Clinical Summary ---
Author Organization [employer] Address [address] [facility] [address] [place] [address] Care Team Providers Care Health Care Social Worker Name Role Phone Juan R Blount MD Primary Care Provide r Allergies Active Allergy Reactions Criticality Noted Date Comments Kurt Inhibitors Cough Acetaminophen Other reaction(s): rash Albuterol Other reaction(s): rash Insulin Other reaction(s): rash Iodine Other reaction(s): rash Latex Other reaction(s): unspecified Medroxyprogesterone Other reaction(s): rash Penicillin V Rash Low 01/07/2024 Medications Continuous Blood Gluc Cashier Office (FreeStyle Crystal 2 Sandstone) deviceIndications :Type 2 diabetes mellitus with hyperglycemia, [...] hyperglycemia, with long-term current use of insulin ([facility]) TAKE 1 TABLET BY MOUTH EVERY MORNING 90 tablet 3 025 Active amLODIPine (Norvasc) 5 MG tabletIndications :Essential hypertension TAKE 1 TABLET BY MOUTH EVERY EVENING 90 tablet 3 025 Active atenolol (Tenormin) 25 MG tabletIndications :Essential hypertension TAKE 1/2 TABLET BY MOUTH TWICE DAILY IN THE MORNING AND EVENING 90 tablet 1 025 Active montelukast (Singulair) 10 MG tabletIndications :Wheezing TAKE 1 TABLET BY MOUTH EVERY EVENING 90 tablet 1 025 Active atorvastatin (Lipitor) 40 MG tabletIndications :Mixed hyperlipidemia TAKE 1 TABLET BY MOUTH AT BEDTIME 90 tablet 1 025 Active BD Pen Needle Janene U/F 32G X 4 MM miscIndications:T ype 2 diabetes mellitus without complication, with long-term current use of insulin ([facility]) USE DIRECTED FOUR TIMES DAILY 100 each 5 025 Active gabapentin (Neurontin) 800 MG tabletIndications :Type 2 diabetes mellitus with hyperglycemia, with long-term current use of insulin ([facility]) TAKE 1 TABLET BY MOUTH THREE TIMES DAILY IN THE MORNING, AT NOON, AND IN THE EVENING 90 tablet 2 Active TRUEplus Lancets 33G miscIndications:T ype 2 diabetes mellitus with hyperglycemia ([facility]),group home (current) use of insulin ([facility]) TEST BLOOD SUGAR FOUR TIMES DAILY 300 each 11 025 Active glucose blood (FREESTYLE LITE) test stripIndications: Type 2 diabetes mellitus with hyperglycemia ([facility]),saw tailer (current) use of insulin ([facility]) TEST BLOOD SUGAR FOUR TIMES DAILY 300 strip 11 025 Active NovoLOG FLEXPEN 100 UNIT/ML pen INJECT 17 UNITS SUBCUTANEOUSLY THREE TIMES DAILY DIRECTED 15 mL 1 025 Active Incruse Ellipta 62.5 MCG/ACT aerosol powderIndications :Wheeze INHALE 1 PUFF BY MOUTH EVERY DAY AT THE SAME TIME RINSE MOUTH AFTER USING 30 each 1 025 Active albuterol (Ventolin HFA) 108 (90 Base) MCG/ACT inhalerIndication s:Asthma, unspecified asthma severity, unspecified whether complicated, unspecified whether persistent INHALE 2 PUFFS BY MOUTH EVERY 4 TO 6 HOURS NEEDED 18 g 1 025 Active zolpidem (Ambien) 10 MG tabletIndications :Primary insomnia TAKE 1 TABLET BY MOUTH AT BEDTIME NEEDED FOR SLEEP 30 tablet 025 Active Incruse Ellipta 62.5 MCG/ACT aerosol powderIndications :Wheeze INHALE 1 PUFF BY MOUTH EVERY DAY AT THE SAME TIME RINSE MOUTH AFTER USING 30 each 3 024 2024 Discontinued albuterol (Ventolin HFA) 108 (90 Base) MCG/ACT inhalerIndication s:Asthma, unspecified asthma severity, unspecified whether complicated, unspecified whether persistent INHALE 2 PUFFS BY MOUTH EVERY 4 TO 6 HOURS NEEDED 18 g 1 025 2024 Discontinued zolpidem (Ambien) 10 MG tabletIndications [...] 1:39 PM EDT): Patient was admitted to [facility] from 12/26-12/28/2023 For evaluation of intermittent right [...] the ER MRI Brain 12/28/[address] [facility] Etiology ? Neuropathy, Lumbar radiculopathy Pt also [...] Pt is now under the care of System Programmer Dr Holm last seen 05/11/2019 He ordered [...] Eye exam was last done on: 08/2022 [facility] No retinopathy Microalbumin checked on: 07/24/2021 was: [...] Encounters Date Type Department Care Team Description 09/01/2024 Orders Only [facility] [address] [place] [address] Juan R Blount MD 08/30/2024 Refill [facility] [address] [place] [address] Juan R Blount MD Primary insomnia 08/29/2024 Refill [facility] [address] [place] [address] Juan R Blount MD Asthma, unspecified asthma severity, unspecified whether complicated, unspecified whether persistent 08/26/2024 Refill [facility] [address] [place] [address] Juan R Blount MD Primary insomnia 08/24/2024 Orders Only [facility] [address] [facility] [place] [address] Juan R Blount MD Right thyroid nodule (Primary Dx) 08/23/2024 Telephone [facility] [address] [place] [address] Prisca Singh, BRENT Results; Interoffice Coordination 08/18/2024 Orders Only [facility] [address] [place] [address] Juan R Blount MD 08/18/2024 Refill [facility] [address] [place] [address] Juan R Blount MD Wheeze 08/02/2024 Refill [facility] [address] [place] [address] Helena Hernández ANP Primary insomnia 07/22/2024 Refill [facility] [address] [place] [address] Juan R Blount MD 07/16/2024 Refill [facility] [address] [place] [address] Juan R Blount MD Type 2 diabetes mellitus with hyperglycemia, with long-term current use of insulin ([facility]); Type 2 diabetes mellitus with hyperglycemia ([facility]); group home (current) use of insulin (CMS/HCC) 07/14/2024 Telephone [facility] [address] [place] [address] Juan R Blount MD DME from [employer] 07/12/2024 Telephone [facility] [address] [place] [address] Juan R Blount MD Durable Medical Equipment 07/11/2024 Refill [facility] [address] [place] [address] Jua nR Blount MD Type 2 diabetes mellitus without complication, with long-term current use of insulin ([facility]) 07/05/2024 Telephone [facility] [address] [place] [address] Juan R Blount MD [employer] (Pad, incont prevail lng max) 07/02/2024 Refill [facility] [address] [place], [place] [id number] Sadia Membreno MD Primary insomnia 06/22/2024 Telephone [facility] [address] [place] [address] Juliana Goode, BRENT Results 06/21/2024 Orders Only [facility] [address] [place] [address] Juan R Blount MD Lumbar radiculopathy (Primary Dx) 06/17/2024 Refill [facility] [address] [place] [address] NameFco MD Mixed hyperlipidemia 06/17/2024 Refill [facility] [address] [place] [address] Name, MD Fco Mixed hyperlipidemia 06/17/2024 Refill [facility] [address] [place] [address] Juan R Blount MD Wheezing; Mixed hyperlipidemia from Last 3 Months Immunizations Immunization Administration Dates Next Due Pfizer Covid-19 Vaccine [...] 07/24/2021, Additional history exists Diagnostic Breast Imaging 09/02/20242024, 09/01/2024, 03/03/2024, Additional history exists Depression Screening 01/14/2025 01/15/2024, 01/15/20 24 SDOH Screening 01/14/2025 01/15/2024 Tobacco Screening 01/14/2025 01/15/2024 Diabetes: Urine Protein Screening 02/02/2025 02/03/2024, 07/24/2021, 07/25/2020, Additional history exists Mammogram 03/04/2025 09/01/2024, 08/19, 03/03/2024, Additional history exists Hepatitis C Screening Completed [...] patient's age to complete this topic Meningococcal B Vaccine Aged Out No l onger eligible based on patient's age to complete [...] Associated Diagnosis Comments BI MAMMOGRAM DIAGNOSTIC TOMOSYNTHESIS RIGHT Routine 09/01/2024 1:22 PM EDT BI US BREAST LIMITED RIGHT Routine 09/01/2024 1:00 PM EDT US THYROID Routine 08/18/2024 12:59 PM EDT HEPATITIS PANEL, GENERAL Routine 02/05/2024 9:25 AM EDT ALBUMIN, RANDOM URINE W/CREATININE Routine 02/03/2024 11:35 AM EDT POCT GLYCATED HEMOGLOBIN, TOTAL Routine 01/15/2024 2:21 PM EDT Type 2 diabetes mellitus without complication, with long-term current use of insulin ([facility]) ZZZ HISTORICAL LIPID PANEL Routine 07/24/2021 9:38 AM EDT from Last 3 Months or Most Recently Relevant to Health Maintenance Results * BI Mammogram Diagnostic Tomosynthesis Right (09/01/2024 1:22 PM EDT) Anatomical Region Laterality Modality Breast Right Mammography 09/01/2024 1:22 PM EDT Narrative 09/01/2024 2:33 PM EDT ? [facility] ? [address] ?[place] [address] ?[phone] ? Mammography Report ? Signed ? Patient: Sy,Torrie ?MR#: [id number] ?? [id number] ? : 1955 ?Acct:[id number] ? Age/Sex: 69 / F ?ADM Date: 05/14/25 ? Loc: HO.MAMMO ? Attending Dr: Juan R Bey MD ? Ordering Physician: Juan R Bey MD ?Resu ?? lts: 4Suspicious Finding ? Date of Service: 09/01/24 ?Follow Up: Biopsy Recommend ?? ed ? Procedure(s): MM tomosynthesis diagnostic RT ?? Accession Number(s): [id number] ? cc: Juan R Bey MD ? EXAMINATION: ?? MM DIAGNOSTIC DIGITAL BREAST TOMOSYNTHESIS, RIGHT ?? Limited right breast ultrasound. ? CLINICAL INFORMATION: ? 6 month follow-up for hypoechoic oval solid mass versus complicated ?? cyst on ultrasound in the right breast on its 10:00 4 7 m from the ?? nipple. ? COMPARISON: ?? Mammography: [facility]ors on PACS. ? TECHNIQUE: ?? Digital breast tomosynthesis is performed in both the craniocaudal and ?? mediolateral oblique views along with computer-aided detection (CAD). ?? Synthesized 2D images are generated from the tomosynthesis. ? FINDINGS: ?? There are scattered areas of fibroglandular density (ACR BI-RADS breast ?? composition Category b). ?? There is a developing focal asymmetry with associated architectural ?? distortion in the upper outer breast posterior depth. ?? Circumscribed oval mass in the upper outer quadrant middle depth again ?? seen is stable from prior. ?? No suspicious calcifications or other abnormal findings. ? Targeted color Doppler ultrasound scanning at 10:00 4 7 m from nipple ?? again demonstrates a hypoechoic oval circumscribed solid mass versus ?? complicated cyst ??measuring 8 x 6 x 4 mm overall not significantly ?? changed from prior ultrasound. ? Targeted color Doppler ultrasound just posterior to the solid mass ?? versus complicated cyst demonstrates an ill-defined hyperechoic and ?? hypoechoic heterogeneous area which is a questionable correlate for the ?? developing focal asymmetry with distortion on mammography. ? MM/MM tomosynthesis diagnostic RT ?? IMPRESSION: ?? 1. Solid mass versus complicated cyst at 10:00 3 cm from nipple. ?? Recommend 6 month follow-up ultrasound for further evaluation of ?? stability. ? 2. Developing focal asymmetry with associated distortion the upper ?? outer right breast posterior depth. Recommend stereotactic core needle ?? biopsy at this time. If stereotactic core needle biopsy cannot be ?? performed due to patients physical limitations then recommend attempt ?? at ultrasound-guided core needle biopsy at the previously seen area ?? posterior to the 10:00 mass described above at approximately 10:00 6 cm ?? from the nipple. Recommend clinical correlation to ensure clip matches ?? the developing focal asymmetry with distortion. ? ASSESSMENT: ? BI-RADS BI-RADS 4 - Suspicious finding ? RECOMMENDATION: ?? Biopsy recommended ? Results were provided to the patient at time of visit by the ?? technologist. ? This patient's information was entered into a reminder system with a ?? target due date for their next mammogram. ? Electronically signed by: ??Gabriella Campuzano DO ??09/01/2024 02:29 PM EDT ?? RP ? Dictated By: ?Gabriella Campuzano DO ? Signed By: ?<Electronically signed by Gabriella Campuzano, DO in OV> ? 09/01/24 1429 ? DD/ 1322 ? TD/TT: 09/01/24 1345 ? Hotel Operations Manager: ? Procedure Note Deepthi, Image - 09/01/2024 [facility] [address] [place] [address] [place] [address] Mammography Report Signed Patient: Torrie SyMR#: [id number] : 5Acct:[id number] Age/Sex: 69 / FADM Date: 09/01/24 Loc: HO.MAMMO Attending Dr: Juan R Bey MD Ordering Physician: Juan R Bey MDResu lts: 4Suspicious Finding Date of Service: 09/01/24Follow Up: Biopsy Recommend ed Procedure(s): MM tomosynthesis diagnostic RT Accession Number(s): [id number] cc: Juan R Bey MD EXAMINATION: MM DIAGNOSTIC DIGITAL BREAST TOMOSYNTHESIS, RIGHT Limited right breast ultrasound. CLINICAL INFORMATION: 6 month follow-up for hypoechoic oval solid mass versus complicated cyst on ultrasound in the right breast on its 10:00 4 7 m from the nipple. COMPARISON: Mammography: [facility] on PACS. TECHNIQUE: Digital breast tomosynthesis is performed in both the craniocaudal and mediolateral oblique views along with computer-aided detection (CAD). Synthesized 2D images are generated from the tomosynthesis. FINDINGS: There are scattered areas of fibroglandular density (ACR BI-RADS breast composition Category b). There is a developing focal asymmetry with associated architectural distortion in the upper outer breast posterior depth. Circumscribed oval mass in the upper outer quadrant middle depth again seen is stable from prior. No suspicious calcifications or other abnormal findings. Targeted color Doppler ultrasound scanning at 10:00 4 7 m from nipple again demonstrates a hypoechoic oval circumscribed solid mass versus complicated cyst measuring 8 x 6 x 4 mm overall not significantly changed from prior ultrasound. Targeted color Doppler ultrasound just posterior to the solid mass versus complicated cyst demonstrates an ill-defined hyperechoic and hypoechoic heterogeneous area which is a questionable correlate for the developing focal asymmetry with distortion on mammography. MM/MM tomosynthesis diagnostic RT IMPRESSION: 1. Solid mass versus complicated cyst at 10:00 3 cm from nipple. Recommend 6 month follow-up ultrasound for further evaluation of stability. 2. Developing focal asymmetry with associated distortion the upper outer right breast posterior depth. Recommend stereotactic core needle biopsy at this time. If stereotactic core needle biopsy cannot be performed due to patients physical limitations then recommend attempt at ultrasound-guided core needle biopsy at the previously seen area posterior to the 10:00 mass described above at approximately 10:00 6 cm from the nipple. Recommend clinical correlation to ensure clip matches the developing focal asymmetry with distortion. ASSESSMENT: BI-RADS BI-RADS 4 - Suspicious finding RECOMMENDATION: Biopsy recommended Results were provided to the patient at time of visit by the technologist. This patient's information was entered into a reminder system with a target due date for their next mammogram. Electronically signed by: Gabriella Campuzano DO 09/01/2024 02:29 PM EDT Dictated By: Gabriella Campuzano DO Signed By: <Electronically signed by Gabriella Campuzano DO in OV> 09/01/24 1429 DD/ 1322 TD/TT: 09/01/24 1345 Hotel Operations Manager: Juan R Vega MD IMG BI PROCEDURES Fin al Result * BI US Breast Limited Right (09/01/2024 1:00 PM EDT) Anatomical Region Laterality Modality Breast Right Ultrasound 09/01/2024 1:00 PM EDT Narrative 09/01/2024 2:33 PM EDT ? [facility] [place] ? [address] [address] ? Ultrasound Report ? Signed ? Patient: Sy,Torrie ?MR#: [id number] ?? [id number] ? : 1955 ?Acct:[id number] ? Age/Sex: 69 / F ?ADM Date: 05/14/25 ? Loc: HO.MAMMO ? Attending Dr: Juan R Bey MD ? Ordering Physician: Juan R Bey MD ?? Date of Service: 09/01/24 ?? Procedure(s): US breast RT limited mamm only ?? Accession Number(s): [id number] ? cc: Juan R Bey MD ? EXAMINATION: ?? MM DIAGNOSTIC DIGITAL BREAST TOMOSYNTHESIS, RIGHT ?? Limited right breast ultrasound. ? CLINICAL INFORMATION: ? 6 month follow-up for hypoechoic oval solid mass versus complicated ?? cyst on ultrasound in the right breast on its 10:00 4 7 m from the ?? nipple. ? COMPARISON: ?? Mammography: [facility] on PACS. ? TECHNIQUE: ?? Digital breast tomosynthesis is performed in both the craniocaudal and ?? mediolateral oblique views along with computer-aided detection (CAD). ?? Synthesized 2D images are generated from the tomosynthesis. ? FINDINGS: ?? There are scattered areas of fibroglandular density (ACR BI-RADS breast ?? composition Category b). ?? There is a developing focal asymmetry with associated architectural ?? distortion in the upper outer breast posterior depth. ?? Circumscribed oval mass in the upper outer quadrant middle depth again ?? seen is stable from prior. ?? No suspicious calcifications or other abnormal findings. ? Targeted color Doppler ultrasound scanning at 10:00 4 7 m from nipple ?? again demonstrates a hypoechoic oval circumscribed solid mass versus ?? complicated cyst ??measuring 8 x 6 x 4 mm overall not significantly ?? changed from prior ultrasound. ? Targeted color Doppler ultrasound just posterior to the solid mass ?? versus complicated cyst demonstrates an ill-defined hyperechoic and ?? hypoechoic heterogeneous area which is a questionable correlate for the ?? developing focal asymmetry with distortion on mammography. ? US/US breast RT limited mamm only ?? IMPRESSION: ?? 1. Solid mass versus complicated cyst at 10:00 3 cm from nipple. ?? Recommend 6 month follow-up ultrasound for further evaluation of ?? stability. ? 2. Developing focal asymmetry with associated distortion the upper ?? outer right breast posterior depth. Recommend stereotactic core needle ?? biopsy at this time. If stereotactic core needle biopsy cannot be ?? performed due to patients physical limitations then recommend attempt ?? at ultrasound-guided core needle biopsy at the previously seen area ?? posterior to the 10:00 mass described above at approximately 10:00 6 cm ?? from the nipple. Recommend clinical correlation to ensure clip matches ?? the developing focal asymmetry with distortion. ? ASSESSMENT: ? BI-RADS BI-RADS 4 - Suspicious finding ? RECOMMENDATION: ?? Biopsy recommended ? Results were provided to the patient at time of visit by the ?? technologist. ? This patient's information was entered into a reminder system with a ?? target due date for their next mammogram. ? Electronically signed by: ??Gabriella Campuzano DO ??09/01/2024 02:29 PM EDT ? Dictated By: ?Gabriella Campuzano DO ? Signed By: ?<Electronically signed by Gabriella Campuzano, DO in OV> ? 09/01/24 1429 ? DD/ 1300 ? TD/TT: 09/01/24 1330 ? Hotel Operations Manager: ? Procedure Note Donotuseinterpreter, Image - [facility] [address] [place] [address] Ultrasound Report Signed Patient: Prabha Sy#: [id number] : 5Acct:[id number] Age/Sex: 69 / FADM Date: 09/01/24 Loc: NATAL[facility] Attending Dr: Juan R Bey MD Ordering Physician: Juan R Bey MD Date of Service: 09/01/24 Procedure(s): US breast RT limited mamm only Accession Number(s): [id number] cc: Juan R Bey MD EXAMINATION: MM DIAGNOSTIC DIGITAL BREAST TOMOSYNTHESIS, RIGHT Limited right breast ultrasound. CLINICAL INFORMATION: 6 month follow-up for hypoechoic oval solid mass versus complicated cyst on ultrasound in the right breast on its 10:00 4 7 m from the nipple. COMPARISON: Mammography: [facility]ors on PACS. TECHNIQUE: Digital breast tomosynthesis is performed in both the craniocaudal and mediolateral oblique views along with computer-aided detection (CAD). Synthesized 2D images are generated from the tomosynthesis. FINDINGS: There are scattered areas of fibroglandular density (ACR BI-RADS breast composition Category b). There is a developing focal asymmetry with associated architectural distortion in the upper outer breast posterior depth. Circumscribed oval mass in the upper outer quadrant middle depth again seen is stable from prior. No suspicious calcifications or other abnormal findings. Targeted color Doppler ultrasound scanning at 10:00 4 7 m from nipple again demonstrates a hypoechoic oval circumscribed solid mass versus complicated cyst measuring 8 x 6 x 4 mm overall not significantly changed from prior ultrasound. Targeted color Doppler ultrasound just posterior to the solid mass versus complicated cyst demonstrates an ill-defined hyperechoic and hypoechoic heterogeneous area which is a questionable correlate for the developing focal asymmetry with distortion on mammography. US/US breast RT limited mamm only IMPRESSION: 1. Solid mass versus complicated cyst at 10:00 3 cm from nipple. Recommend 6 month follow-up ultrasound for further evaluation of stability. 2. Developing focal asymmetry with associated distortion the upper outer right breast posterior depth. Recommend stereotactic core needle biopsy at this time. If stereotactic core needle biopsy cannot be performed due to patients physical limitations then recommend attempt at ultrasound-guided core needle biopsy at the previously seen area posterior to the 10:00 mass described above at approximately 10:00 6 cm from the nipple. Recommend clinical correlation to ensure clip matches the developing focal asymmetry with distortion. ASSESSMENT: BI-RADS BI-RADS 4 - Suspicious finding RECOMMENDATION: Biopsy recommended Results were provided to the patient at time of visit by the technologist. This patient's information was entered into a reminder system with a target due date for their next mammogram. Electronically signed by: Gabriella Campuzano DO 09/01/2024 02:29 PM EDT Dictated By: Gabriella Campuzano DO Signed By: <Electronically signed by Gabriella Campuzano DO in OV> 09/01/24 1429 DD/ 1300 TD/TT: 09/01/24 1330 Hotel Operations Manager: us Juan R Vega MD IMG US PROCEDURES Fin al Result * US Thyroid (08/18/2024 12:59 PM EDT) Anatomical Region Laterality Modality Head, Neck Ultrasound 08/18/2024 12:5 9 PM EDT Narrative 08/19/2024 7:31 AM EDT ? [facility] ?[address] ?[place] [address] ? Ultrasound Report ? Signed ? Patient: Sy,Torrie ?MR#: [id number] ?? [id number] ? : 1955 ?Acct:[id number] ? Age/Sex: 69 / F ?ADM Date: 04/30/25 ? Loc: HO.US ? Attending Dr: Juan R Bey MD ? Ordering Physician: Juan R Bey MD ?? Date of Service: 08/18/24 ?? Procedure(s): US thyroid ?? Accession Number(s): [id number] ? cc: Juan R Bye MD ? EXAMINATION: ??US THYROID ? HISTORY: [...] DD/ 1259 ? TD/TT: 08/18/24 1305 ? Hotel Operations Manager: ? Procedure Note Stan Lacey - 08/19/[address] [address] Ultrasound Report Signed Patient: Prabha Sy#: [id number] : 5Acct:[id number] Age/Sex: 69 / FADM Date: 08/18/24 Loc: HO.US Attending Dr: Juan R Bey MD Ordering Physician: Juan R Bey MD Date of Service: 08/18/24 Procedure(s): US thyroid Accession Number(s): [id number] cc: Juan R Bey MD EXAMINATION: US [...] Caden Blood MD 08/19/2024 07:29 AM EDT Dictated By: Caden Blood MD Signed By: <Electronically signed by Caden Blood MD in OV> 08/19/24 0729 DD/ 1259 TD/TT: 08/18/24 1305 Hotel Operations Manager: us Juan R Vega MD IM US PROCEDURES Fin al Result * Hepatitis Panel, General (02/05/2024 9:25 AM EDT) Hepatitis A IgM Nonreactive Nonreactive [facility] Comment:IgM antibodies to [place] V not detected; does not exclude earlyacute or recovered HAV infection. ~Hepatitis B Surface Antibody NONREACTIVE Nonreactive [facility] Comment:Nonreactive: < 8.00 mIU/mL Hepatitis B Core Antibody Nonreactive Nonreactive [facility] Hepatitis C Antibody Nonreactive Nonreactive [facility] Comment:Antibodies to HCV no t detected; does not exclude early acuteHCV infection. Hepatitis B Surface Ag Negative Negative [facility] 02/05/2024 9:25 AM EDT 02/05/2024 9:25 AM EDT Generic External Data Provider LAB BLOOD ORDERAB LES Final Result Performing Organization Address [facility] de Phone Number [facility] [address] [place] [phone] * (ABNORMAL) Albumin, Random Urine W/Creatinine (02/03/2024 11:35 AM EDT) Creatinine, Urine 87.94 mg/dL [facility] Microalbumin Urine 151.0 mg/L [facility] Microalbum Creatinine Ratio Ur 171.7(H) <30 ug/mg cr [facility] Comment:Albumin/Creatinine R atio Reference Ranges: Normal: < 30 ug/mg creatinine Microalbuminuria: 30 - 300 ug/mg creatinineClinical Albuminuria: > 300 ug/mg creatinine 02/03/2024 11:3 5 AM EDT 02/03/2024 12:18 PM EDT Generic External Data Provider LAB URINE ORDERAB LES Final Result Performing Organization Address [facility] Co de Phone Number [facility] [address] [place] [address] [phone] * (ABNORMAL) POCT HGB A1C (01/15/2024 2:21 PM EDT) Hemoglobin A1C 12.6(A) 4.0 - 6.0 % QC Media Lot # [id number] Lot# Expiration Date ,502 Blood 01/15/2024 2:21 PM EDT us Juan R Vega MD POINT OF CARE TEST EN TER/EDIT ORDERABLES Final Result * (ABNORMAL) LIPID PANEL (07/24/2021 9:38 AM EDT) [facility] Signature Cholesterol 124 mg/dL [facility] Comment: Desirable Cholesterol: ?less than 200 mg/dL Borderline High Cholesterol: ??200-239 mg/dL High Cholesterol: ? greater than 239 mg/dL HDL Cholesterol 37 mg/dL [facility] Comment: Desirable HDL: ??greater than 40 mg/dL ?? Note: This HDL assay may give artificially ? low results in patients with liver disease. LDL Cholesterol Calculated 62 mg/dl [facility] Comment: Desirable LDL: ? less [...] 58 [facility] Comment: NOTE: ??For -Palest[place] individuals, multiply the result ?by . ?? Chronic Kidney Disease: ??Estimated GFR < [...] Historical Provider HISTORICAL/NON ORDERABLE LABS Final Result [facility] [address] from Last 3 Months or Most Recently Relevant to Health Maintenance Insurance [facility] ONE CARE < 65 Care Teams Health Care Social Worker Relationship Specialty Start Date End Date Juan R Blount MD [address] [place] [phone] PCP - General Internal Medicine 12/09/13 [facility] 08/23/24
--- OUTSIDE RECORDS SUMMARY | 2024-09-02 15:11 | XMS_ITS | Encounter Summary ---
Author Organization [employer] Address 75 [facility] 7t [place] [address] Care Team Providers Care Gravure Press Set Up Operator Name Role Phone Juan R Blount MD Primary Care Provide r Encounter Details Date Type Department Care Team ([facility] st Contact Info) Description 05/16/2022 Orders Only [facility] CHC MED & PEDS [address] [place] [address] Luz Marina Zaragoza LPN Social History Tobacco [...] EST Narrative 05/28/2022 4:46 PM EST ? [facility] ? [address] ?[place] [address] ? Mammography Report ? Signed ? Patient: Sy,Torrie ?MR#: [id number] ?? [id number] ? : 1955 ?Acct:[id number] ? Age/Sex: 67 / F ?ADM Date: 05/28/22 ? Loc: HO.MAMMO ? Attending Dr: Juan R Bey MD ? Ordering Physician: Juan R Bey MD ?Results: 3.6MProbably Benign Finding - Short 6 M F/U ?? Suggested ? Date of Service: 05/28/22 ?Follow Up: 6 Month F/U ? Procedure(s): MM tomosynthesis diagnostic LT ?? Accession Number(s): [id number] ? cc: Juan R Bey MD ? [...] 1643 ? DD/ 1458 ? TD/TT: ? Radiology Clerk: SK ? Procedure Note Dontruongbreezyosvaldo, Image - 05/28/2022 [facility] [address] [place] [address] Mammography Report Signed Patient: Prabha Sy#: [id number] : 5Acct:[id number] Age/Sex: 67 / FADM Date: 05/28/22 Loc: NATALEE Attending Dr: Juan R Bey MD Ordering Physician: Juan R Bey MD Results: 3.6MProbably Benign Finding - Short 6 M F/U Suggested Date of Service: 05/28/22Follow Up: 6 Month F/U Procedure(s): MM tomosynthesis diagnostic LT Accession Number(s): [id number] cc: Juan R Bey MD EXAMINATION: MM [...] in OV> 05/28/22 1643 DD/ 1458 TD/TT: Radiology Clerk: SANTOS [facility] External Provider IMG BI PROCEDURES Edited Result - Final documented in this encounter Visit Diagnoses Not on filedocumented in this encounter Care Teams Gravure Press Set Up Operator Relationship Specialty Start Date End Date Juan R Blount MD [address] [place] [address] PCP - General Internal Medicine 12/09/13 [facility] 08/23/24 documented as of this encounter
--- OUTSIDE RECORDS SUMMARY | 2024-09-02 15:11 | XMS_ITS | Encounter Summary ---
Author Organization [employer] Address 75 [facility] 7t [place] [address] Care Team Providers Care Squaring Machine Operator Name Role Phone Juan R Blount MD Primary Care Provide r Encounter Details Date Type Department Care Team (Late st Contact Info) Description 05/29/2022 Orders Only [facility] MEDICINE [address] [place], [place] [phone] Cyndi Sy LPN Social History Tobacco Use [...] on filedocumented in this encounter Care Teams Squaring Machine Operator Relationship Specialty Start Date End Date Juan R Blount MD [address] [place] [address] PCP - General Internal Medicine 12/09/13 [facility] 08/23/24 documented as of this encounter
--- OUTSIDE RECORDS SUMMARY | 2024-09-02 15:11 | XMS_ITS | Encounter Summary ---
Author Organization [employer] Address 75 [facility] 7t [place] [address] Care Team Providers Care Bar Roller Name Role Phone Juan R lBount MD Primary Care Provide r Reason for Visit * Reason Comments Med Refill Encounter Details Date Type Department Care Team (Late st Contact Info) Description 06/27/2023 Refill [facility] CHC MED & PEDS [address] [place] [address] Aggie Guan MD [address] [place] [address] Primary insomnia Social History Tobacco Use Types [...] documented as of this encounter Care Teams Bar Roller Relationship Specialty Start Date End Date Juan R Blount MD [address] [place] [address] PCP - General Internal Medicine 12/09/13 [facility] 08/23/24 documented as of this encounter
--- OUTSIDE RECORDS SUMMARY | 2024-09-02 15:11 | XMS_ITS | Encounter Summary ---
Author Organization [employer] Address [address] [facility] 7t [place] [address] Care Team Providers Care Supervisor Electric Name Role Phone Juan R Blount MD Primary Care Provide r Reason for Visit * Reason Comments Med Refill Encounter Details Date Type Department Care Team ([facility] st Contact Info) Description 08/30/2024 Refill [facility] CHC MED & PEDS [address] [place], [place] [phone] Juan R Blount MD [address] [place] [address] Primary insomnia Social History Tobacco Use Types [...] as of this encounter Care Teams Supervisor Electric Relationship Specialty Start Date End Date Juan R Blount MD [address] [place] [address] PCP - General Internal Medicine 12/09/13 [facility] 08/23/24 documented as of this encounter
--- OUTSIDE RECORDS SUMMARY | 2024-09-02 15:11 | XMS_ITS | Encounter Summary ---
Author Organization [employer] Address 75 [facility] 7t [place] [address] Care Team Providers Care Outdoor Education Teacher Name Role Phone Juan R Blount MD Primary Care Provide r Encounter Details Date Type Department Care Team (Late st Contact Info) Description 05/31/2022 Abstract [facility] MEDICINE [address] [place], [place] [phone] Juan R Blount MD [address] [place], [place] [phone] Social History Tobacco Use Types Packs/Day Years [...] on filedocumented in this encounter Care Teams Outdoor Education Teacher Relationship Specialty Start Date End Date Juan R Blount MD [address] [place], [place] [phone] PCP - General Internal Medicine 12/09/13 [facility] 08/23/24 documented as of this encounter
--- OUTSIDE RECORDS SUMMARY | 2024-09-02 15:11 | XMS_ITS | Encounter Summary ---
Author Organization [employer] Address 75 [facility] 7t [place] [address] Care Team Providers Care Truck Crane Operator Name Role Phone Juan R Blount MD Primary Care Provide r Reason for Visit * Reason Comments Med Refill Encounter Details Date Type Department Care Team ([facility] st Contact Info) Description 08/29/2024 Refill [facility] MEDICINE [address] [place] [address] Juan R Blount MD 230 [place], [place] [phone] Asthma, unspecified asthma severity, unspecified whether complicated, [...] documented as of this encounter Care Teams Truck Crane Operator Relationship Specialty Start Date End Date Juan R Blount MD [address] [place] [address] PCP - General Internal Medicine 12/09/13 [facility] 08/23/24 documented as of this encounter
--- OUTSIDE RECORDS SUMMARY | 2024-09-02 15:11 | XMS_ITS | Encounter Summary ---
Author Organization [employer] Address 75 [facility] 7t [place] [address] Care Team Providers Care Branch Coordinator Name Role Phone Juan R Blount MD Primary Care Provide r Encounter Details Date Type Department Care Team (Late st Contact Info) Description 05/16/2023 Abstract [facility] MEDICINE 230 [place], [place] [phone] Juan R Blount MD 230 [place], [place] [phone] Social History Tobacco Use Types Packs/Day Years [...] documented as of this encounter Care Teams Branch Coordinator Relationship Specialty Start Date End Date Juan R Blount MD [address] [place] [address] PCP - General Internal Medicine 12/09/13 Sh[facility]ocr[facility] 08/23/24 documented as of this encounter
--- OUTSIDE RECORDS SUMMARY | 2024-09-02 15:11 | XMS_ITS ---
Author Organization [facility] Address [address] [place] [address] Care Team Providers Care Procedures Tech Name Role Phone Angelito Vega MD, Juan R Primary Care Provide Caden Jordan [phone] REASON FOR VISIT Patient presents today for a COLON SCREENING Encounters Encounter Location Date Provider Diagnosis [facility] [address] [place] [address] 05/25/2024 Caden Huffman Plan Of Treatment Next Appt Details Provider Name:Caden Huffman , 09/28/2024 10:10:00 AM, [address], [address], [place], [address], Progress Notes * KAM BRUSHNITADOB:[birth year] (69 yo M)Acc No.[id number]:05/25/2024 Progress Notes Patient:?MERCEDES BRUSH Provider:?Caden Huffman MD :1955???Age:69 Y???Sex:Male Mark e:05/25/2024 Address:[address] [place] [address], [place], [phone] Pcp:Juan R montalvo MD Subjective: * Chief [...] MD Date:? 025 Generated for Deirdre dominguez/Bobbi/eTmalenasmitting on:?09/02/2024 03:11 PM EDT
--- OUTSIDE RECORDS SUMMARY | 2024-09-02 15:11 | XMS_ITS | Encounter Summary ---
Author Organization [employer] Address 75 [facility] 7t [place] [address] Care Team Providers Care Divinity Professor Name Role Phone Juan R Blount MD Primary Care Provide r Encounter Details Date Type Department Care Team ([facility] st Contact Info) Description 07/03/2022 Orders Only [facility] CHC MED & PEDS [address] [place] [address] Luz Marina Zaragoza LPN Social History Tobacco [...] on filedocumented in this encounter Care Teams Divinity Professor Relationship Specialty Start Date End Date Juan R Blount MD [address] [place] [address] PCP - General Internal Medicine 12/09/13 Sh[facility] 08/23/24 documented as of this encounter
--- OUTSIDE RECORDS SUMMARY | 2024-09-02 15:11 | XMS_ITS | Encounter Summary ---
Author Organization [employer] Address 75 [facility] 7t [place] [address] Care Team Providers Care Drying Rack Changer Name Role Phone Juan R Blount MD Primary Care Provide r Reason for Visit * Reason Comments Med Refill Encounter Details Date Type Department Care Team ([facility] st Contact Info) Description 06/17/2024 Refill [facility] MEDICINE [address] [place] [address] Name, MD Fco [address] [place] [address] Mixed hyperlipidemia Social History Tobacco Use Types [...] documented as of this encounter Care Teams Drying Rack Changer Relationship Specialty Start Date End Date Juan R Blount MD [address] [place] [address] PCP - General Internal Medicine 12/09/13 Sh[facility] Sutton Endocrin[facility] 08/23/24 documented as of this encounter
--- OUTSIDE RECORDS SUMMARY | 2024-09-02 15:11 | XMS_ITS | Encounter Summary ---
Author Organization [email or web address] Address 75 [facility] 7t [place] [address] Care Team Providers Care Bag Machine Set Up Operator Name Role Phone Juan R Blount MD Primary Care Provide r Reason for Visit * Reason Comments Med Refill Encounter Details Date Type Department Care Team (Late st Contact Info) Description 07/29/2023 Refill [facility] CHC MED & PEDS [address] [place] [address] Aggie Guan MD [address] [place] [address] Primary insomnia Social History Tobacco Use Types [...] documented as of this encounter Care Teams Bag Machine Set Up Operator Relationship Specialty Start Date End Date Juan R Blount MD [address] [place] [address] PCP - General Internal Medicine 12/09/13 Sh[facility] Sutton End[facility] 08/23/24 documented as of this encounter
--- OUTSIDE RECORDS SUMMARY | 2024-09-02 15:11 | XMS_ITS | Encounter Summary ---
Author Organization [employer] Address 75 [facility] 7t [place] [address] Care Team Providers Care Director Of Financial Aid Name Role Phone Juan R Blount MD Primary Care Provide r Encounter Details Date Type Department Care Team (Late st Contact Info) Description 09/01/2024 Orders Only [facility] MEDICINE [address] [place] [address] Juan R Blount MD [address] [place], [place] [phone] Social History Tobacco Use Types Packs/Day Years [...] LIMITED RIGHT Routine 09/01/2024 1:00 PM EDT documented in this encounter Results * BI Mammogram Diagnostic Tomosynthesis Right (09/01/2024 1:22 PM EDT) Anatomical Region Laterality Modality Breast Right Mammography 09/01/2024 1:22 PM EDT Narrative 09/01/2024 2:33 PM EDT ? [facility] [place] ? [address] ?[place] [address] ?[phone] ? Mammography Report ? Signed ? Patient: Sy,Torrie ?MR#: [id number] ?? [id number] ? : 1955 ?Acct:[id number] ? Age/Sex: 69 / F ?ADM Date: 05/14/25 ? Loc: HO.MAMMO ? Attending : Juan R Bey MD ? Ordering Physician: Juan R Bey MD ?Resu ?? lts: 4Suspicious Finding ? Date of Service: 09/01/24 ?Follow Up: Biopsy Recommend ?? ed ? Procedure(s): MM tomosynthesis diagnostic RT ?? Accession Number(s): [id number] ? cc: Juan R Bey MD ? [...] DD/ 1322 ? TD/TT: 09/01/24 1345 ? Kitchen Chef: ? Procedure Note Deepthi, Image - 09/01/2024 [facility] [address] [place] [address] [place], [place] [phone] Mammography Report Signed Patient: Prabha Sy#: [id number] : 5Acct:[id number] Age/Sex: 69 / FADM Date: 09/01/24 Loc: NATALEE Attending Dr: Juan R Bey MD Ordering Physician: Juan R Bey MDResu lts: 4Suspicious Finding Date of Service: 09/01/24Follow Up: Biopsy Recommend ed Procedure(s): MM tomosynthesis diagnostic RT Accession Number(s): [id number] cc: Juan R Bey MD EXAMINATION: MM [...] Campuzano DO Signed By: <Electronically signed by aGbriella Campuzano DO in OV> 09/01/24 1429 DD/ 1322 TD/TT: 09/01/24 1345 Kitchen Chef: us Juan R Vega MD IMG BI PROCEDURES Fin al Result * BI US Breast Limited Right (09/01/2024 1:00 PM EDT) Anatomical Region Laterality Modality Breast Right Ultrasound 09/01/2024 1:00 PM EDT Narrative 09/01/2024 2:33 PM EDT ? [facility] [place] ? [address] ?[place] [address] ? Ultrasound Report ? Signed ? Patient: Torrie Sy ?MR#: [id number] ?? [id number] ? : 1955 ?Acct:[id number] ? Age/Sex: 69 / F ?ADM Date: 09/01/24 ? Loc: HO.MAMMO ? Attending Dr: Juan R Bey MD ? Ordering Physician: Juan R Bey MD ?? Date of Service: 09/01/24 ?? Procedure(s): US breast RT limited mamm only ?? Accession Number(s): [id number] ? cc: Juan R Bey MD ? [...] DD/ 1300 ? TD/TT: 09/01/24 1330 ? Kitchen Chef: ? Procedure Note Donotuseinterpreter, Image - 09/01/2024 [facility] [address] [place] [address] Ultrasound Report Signed Patient: Torrie SyMR#: [id number] : 5Acct:[id number] Age/Sex: 69 / FADM Date: 09/01/24 Loc: HO.MAMMO Attending Dr: Juan R Bey MD Ordering Physician: Juan R Bey MD Date of Service: 09/01/24 Procedure(s): US breast RT limited mamm only Accession Number(s): [id number] cc: Juan R Bey MD EXAMINATION: MM [...] Gabriella Campuzano DO 09/01/2024 02:29 PM EDT RP Dictated By: Gabriella Campuzano DO Signed By: <Electronically signed by Gabriella Campuzano DO in OV> 09/01/24 1429 DD/ 1300 TD/TT: 09/01/24 1330 Kitchen Chef: us uJan R Vega MD IMG US PROCEDURES Fin al Result documented in this encounter Visit Diagnoses Not on filedocumented in this encounter Additional Health Concerns Assessment Noted Time PHQ-9 Depression Total Score: 3 01/15/20 24 1:38 PM EDT documented as of this encounter Care Teams Director Of Financial Aid Relationship Specialty Start Date End Date Juan R Blount MD [address] [place] [address] PCP - General Internal Medicine 12/09/13 [facility] 08/23/24 documented as of this encounter
--- OUTSIDE RECORDS SUMMARY | 2024-09-02 15:11 | XMS_ITS | Encounter Summary ---
Author Organization [employer] Address [address] [address] 7t [place] [address] Care Team Providers Care Tufter Hand Name Role Phone Juan R Blount MD Primary Care Provide r Reason for Visit * Reason Comments Med Refill Encounter Details Date Type Department Care Team ([facility] st Contact Info) Description 04/16/2024 Refill [facility] CHC MED & PEDS [address] [place] [address] Aggie Melendez MD [address] [place] [address] Primary insomnia Social History Tobacco Use Types [...] documented as of this encounter Care Teams Tufter Hand Relationship Specialty Start Date End Date Juan R Blount MD [address] [place] [address] PCP - General Internal Medicine 12/09/13 [facility] 08/23/24 documented as of this encounter
--- OUTSIDE RECORDS SUMMARY | 2024-09-02 15:11 | XMS_ITS | Patient Health Record ---
Author Organization [facility] Address [address] [place] [address] Care Team Providers Care Nursing Coordinator Name Role Phone Angelito Vega MD, Juan R Primary Care Provide r Caden Berry [phone] Reason For Referral No Information Encounters Encounter Location Date Provider Diagnosis [facility] [address] [place] [address] 05/24/2024 Caden Huffman Plan Of Treatment Next Appt Details Provider Name:Caden Huffman , 09/28/2024 10:10:00 AM, [address], [address], [place], [address], Insurance Providers Payer Name Payer Address Payer Phone Subscriber Number Group Number Insured Name Patient Relationship to Insured Coverage Start Date Coverage End Date [facility] [address] [place] [address] [id number] MERCEDES BRUSH Self - patient is the insured
--- OUTSIDE RECORDS SUMMARY | 2024-09-02 15:11 | XMS_ITS | Encounter Summary ---
Author Organization [employer] Address 75 [facility] 7t [place] [address] Care Team Providers Care Oven Drier Tender Name Role Phone Juan R Blount MD Primary Care Provide r Encounter Details Date Type Department Care Team (Late st Contact Info) Description 10/29/2022 Abstract [facility] MEDICINE 230 [place], [place] [phone] Juan R Blount MD 230 [place], [place] [phone] Social History Tobacco Use Types Packs/Day Years [...] on filedocumented in this encounter Care Teams Oven Drier Tender Relationship Specialty Start Date End Date Juan R Blount MD 230 [place], [place] [phone] PCP - General Internal Medicine 12/09/13 [facility] 08/23/24 documented as of this encounter
--- OUTSIDE RECORDS SUMMARY | 2024-09-02 15:11 | XMS_ITS | Encounter Summary ---
Author Organization [employer] Address [address] 7t [place] [address] Care Team Providers Care Aligner Name Role Phone Juan R Blount MD Primary Care Provide r Reason for Visit * Reason Comments Med Refill Encounter Details Date Type Department Care Team (Late st Contact Info) Description 10/23/2023 Refill [facility] CHC MED & PEDS [address] [place], [place] [phone] Juan R Blount MD [address] [facility] [place], [place] [phone] Type 2 diabetes mellitus with hyperglycemia, with long-term current use of insulin ([facility]) Social History Tobacco Use Types Packs/Day Years [...] hyperglycemia, with long-term current use of insulin ([facility]) documented in this encounter Additional Health Concerns Assessment Noted Time PHQ-9 Depression Total Score: 8 11/20/19 23 9:41 AM EDT documented as of this encounter Care Teams Aligner Relationship Specialty Start Date End Date Juan R Blount MD [address] [place] [address] PCP - General Internal Medicine 12/09/13 [facility] 08/23/24 documented as of this encounter
== END 2024-09-02 14:42 | disposition home or self-care (01) ==
LOC: HO.HGS 14:33
PROVIDERS: PCP Internal Medicine; Visit Provider Surgery
DX: R92.8 Other abnormal and inconclusive findings on diagnostic imaging of breast (principal)
CPT/HCPCS: 99204

== ENCOUNTER → 2024-09-02 14:33 | Outpatient (BNVA) | payer OTHER, SELFPAY | PROVIDERS: PCP Internal Medicine; Visit Provider Surgery | DX: R92.8 Other abnormal and inconclusive findings on diagnostic imaging of breast (principal) | CPT/HCPCS: 99202 ==

== ENCOUNTER 2024-09-14 13:47 | Outpatient (AMB) | payer OTHER, SELFPAY ==
--- NOTE | 2024-09-14 13:55 | MHC.OFFVIS ---
Vital Signs 09/14/24 14:00 Height 5 ft 6 in Weight 169 lb 1.513 oz BMI 27.3 BP 108/58 L Blood Pressure Location Lt brachial Position Sitting Pulse 102 H Pulse Source Pulse Oximeter Pulse Oximetry (%) 98 Oxygen Delivery Method Room Air Intake Visit Reasons: T2DM Intake Note: Patient present today to follow up on Type 2 Diabetes Mellitus. Patient receives Crystal 3 supplies through: [facility] Last Diabetic Eye exam: DUE Last Podiatry Visit: Does not see a Systems Coordinator Most Recent HgA1C: 7.0%, 09/14/2024 Random Glucose: 170 mg/dL, Today Punch Hand Required: No Accompanied by: Daughter Allergies insulin detemir Allergy (Intermediate, Verified 09/14/24 14:00) Rash penicillin V Allergy (Intermediate, Verified 09/14/24 14:00) Rash acetaminophen [From Tylenol] Allergy (Mild, Verified 09/14/24 14:00) ITCH,RASH iodine [Iodine] Allergy (Mild, Verified 09/14/24 14:00) HIVES trimerosal Allergy (Intermediate, Uncoded 09/14/24 14:00) rash Latex Gloves Allergy (Mild, Uncoded 09/14/24 14:00) Rash METAL Allergy (Mild, Uncoded 09/14/24 14:00) HIVES Medication List - Last Reconciled 09/14/24 by MAYELA Pond albuterol sulfate 90 mcg/actuation 2 puffs inhalation Q6H PRN amlodipine 5 mg PO BEDTIME aspirin 81 mg PO DAILY atenolol 12.5 mg PO BID atorvastatin 40 mg PO BEDTIME blood sugar diagnostic (FreeStyle Lite Strips) four times a day blood-glucose meter (FreeStyle Lite Meter kit) As directed blood-glucose sensor (FreeStyle Crystal 3 Sensor device) apply new sensor every 14 days blood-glucose,audit machine operator,cont (FreeStyle Crystal 3 [place]) Use daily to monitor blood glucose levels continuously. [Cane As directed] dextrose (TRUEplus Glucose) 15 grams (32 mL) PO Q15M PRN docusate sodium 100 mg PO BEDTIME dulaglutide (Trulicity) 4.5 mg subcut MO@0900 fluticasone propion-salmeterol 500-50 mcg/dose (Advair Diskus) 1 inh inhalation BID gabapentin 800 mg PO TID glucose (Dex4 Glucose Quick Dissolve) 16 grams (4 x 4 gram) PO Q15M PRN insulin aspart U-100 (Novolog FlexPen U-100 Insulin aspart) 18 units subcut TIDAC insulin degludec (Tresiba FlexTouch U-200 insulin) 60 units (0.3 mL) subcut BEDTIME 30 days insulin syringe-needle U-100 As directed lancets (FreeStyle Lancets) four times a day lidocaine 5% 1 appl topical BID PRN losartan 100 mg PO DAILY montelukast (Singulair) 10 mg PO BEDTIME nicotine 21 mg transdermal DAILY pen needle, diabetic (BD Ultra-Fine Janene Pen Needle) As directed four times a day pioglitazone (Actos) 15 mg PO DAILY tramadol 50 mg PO TID 90 days umeclidinium 62.5 mcg/actuation (Incruse Ellipta) 1 inh inhalation DAILY zolpidem 10 mg PO BEDTIME PRN HPI Comments Details: This is a 69-year-old female with a past medical history of hypertension, type 2 diabetes, depression, fibromyalgia, moderate persistent asthma, tobacco use, obesity, right thyroid nodule, pulmonary nodules, overactive bladder, recurrent UTI and hyperlipidemia presenting for diabetic management. She is here with her daughter, Siri. She was diagnosed around 1996 with type 2 diabetes. Hemoglobin A1c 7% today, 09/14/2024. I reviewed her Imonomiyle Crystal 3+ download CGM active 54% Average glucose 146 mg/dL G SD 6.8% Glucose variability 27.5% Very high 1% High 18% Target range 80% Low 1% She has postprandial hyperglycemia occasionally in the evening. Current regimen: Trulicity 4.5 mg weekly, Actos 15 mg, Tresiba U 200 60 units at bedtime and NovoLog 18 units TID before meals, increase to 20 units before breakfast if it is a higher carb morning meal. Past medications: Metformin previously discontinued due to worsening renal function. She took glipizide and does not recall why it was discontinued. Compliance issues: none Hypoglycemia symptoms: Occasional. Treated with juice or soda. She has glucose tablets, but she does not like to take them. I submitted a prescription for glucose gel today. Hyperglycemia symptoms: none Eye exam: [facility] - glaucoma Microvascular complications: neuropathy, nephropathy (microalbuminuria per previous notes and CKD stage 3 per problem list) Macrovascular complications: ?TIA ROS: Constitutional: No fevers or chills or increased fatigue. No unexplained weight loss. Eyes: No blurry vision, double vision or eye pain. Cardiovascular: No chest pain Respiratory: No shortness of breath Skin: No open wounds. Endocrine: No cold or heat intolerance. No polyuria or polydipsia. Physical exam: Constitutional: Alert, in no distress. Eyes: Pupils are equal, round and reactive to light. Extraocular muscles intact. Neck: No lymphadenopathy or palpable masses. Respiratory: Clear to auscultation. Cardiovascular: S1 S2 regular. No murmurs Extremities: No edema. [facility] Medical History CVA (cerebral vascular accident) Osteopenia Screening examination for infectious disease Insulin dependent type 2 diabetes mellitus Elevated C-reactive protein Elevated sed rate Myalgia, upper arm Knee instability Back pain at L4-L5 level Knee pain, right Knee pain, left UTI (urinary tract infection) Proteinuria Hyperlipidemia Lumbar spondylosis Fibromyalgia Syncope COPD (chronic obstructive pulmonary disease) Depression Asthma Type 2 diabetes mellitus with hyperglycemia, with long-term current use of insulin Type 2 diabetes mellitus with chronic kidney disease Chronic kidney disease, stage 3 unspecified Type 2 diabetes mellitus with diabetic polyneuropathy Essential hypertension Surgical History Hx of mammogram Hx of colonoscopy Hx of oral surgery Hx of tubal ligation Family History Father No problems noted. Mother Heart disease CVD (cardiovascular disease) Diabetes Social History Household Members: Family Housing: Apartment Do you presently have visiting nurse or other home services: No Alcohol intake: never Patient Tobacco Use Status: Current everyday Tobacco user Tobacco use type: Cigarette Cigarette Packs Per Day: 0.5 Cigarettes Per Day: 10.0 Female Reproductive History Menstrual Age of Menarche: 11 Physical Exam Vital Signs: Last Vital Signs Pulse 102 H 09/14/24 14:00 BP 108/58 L 09/14/24 14:00 Pulse Ox 98 09/14/24 14:00 Oxygen Delivery Method Room Air 09/14/24 14:00 BMI result Body Mass Index 27.3 Office Procedures Glucose Monitoring Details Details: See [facility] [address] - Glucose monitoring, continuous-physician I&R Procedure code (CPT) selection complete Results AMB Hemoglobin A1c AMB Hemoglobin A1c 7.0 % Last Edit by BALJEET Park on 09/14/24 14:32 Results Reviewed Results Reviewed: Laboratory Last Values Glucose (Clinic) 170 mg/dL (60-115) H 09/14/24 14:12 Hgb A1c (Clinic) 7.0 % (4.0-6.0) H 09/14/24 14:15 Laboratory Tests 07/24/21 12/27/23 09:32 17:43 Creatinine 0.75 Estimated GFR > 60 Triglycerides 161 H Cholesterol 150 LDL Cholesterol, Calc 80 HDL Cholesterol 38 L Urine Creatinine 123.70 Urine Microalbumin 307.0 Microalb/Creat Ratio 248.1 Assessment & Plan Assessment & Plan (1) Type 2 diabetes mellitus with diabetic polyneuropathy: Code(s): E11.42 - Type 2 diabetes mellitus with diabetic polyneuropathy Category: Medical Qualifiers: Diabetes mellitus intermediate insulin use: with intermediate card tender use Qualified Code(s): E11.42 - Type 2 diabetes mellitus with diabetic polyneuropathy; Z79.4 - [facility] (current) use of insulin (2) Thyroid nodule: Code(s): E04.1 - Nontoxic single thyroid nodule Category: Medical Plan: Her primary care provider ordered a thyroid ultrasound which was completed on August 18 and demonstrated a 3.3 x 2.7 x 3.2 cm TI-RADS 3 left-sided nodule. Ultrasound-guided biopsy is recommended. Patient is referred to Dr. Quintanilla for management. Plan This is a 69-year-old female with controlled type 2 diabetes with complications. Continue NovoLog to 18 units before lunch and dinner. If breakfast is high protein/low carb administer 18 units, but increase to 20 units if having egg sandwich or toast with eggs. Administer 5-10 minutes prior to meals. Continue to have a small snack around 2-3 p.m to prevent lows. Her LEGAL DOCUMENT SPECIALIST prepares this in the morning so it is ready in the afternoon for her. Continue Tresiba 60 units at bedtime Continue Trulicity 4.5 mg weekly. Continue Actos 15 mg daily. We reviewed treatment of hypo/hyperglycemia. Glucose tablets sent to pharmacy. Advised to have lab work completed. She will follow up in 3 months for Type II diabetes. Orders: Orders Lipid Panel Today E11.65 - Type 2 diabetes mellitus with hyperglycemia, E78.5 - Hyperlipidemia, unspecified, Z79.4 - intermediate project manager (current) use of insulin Aspartate Amino Transferase Today E11.65 - Type 2 diabetes mellitus with hyperglycemia, Z79.4 - intermediate project manager (current) use of insulin TSH reflex Free T4 Today E04.1 - Nontoxic single thyroid nodule AMB Hemoglobin A1c Today E11.9 - Type 2 diabetes mellitus without complications, Z79.4 - intermediate project manager (current) use of insulin Vitamin B12 Today E11.65 - Type 2 diabetes mellitus with hyperglycemia, Z79.4 - [facility] (current) use of insulin, Z91.89 - Other specified personal risk factors, not elsewhere classified Microalbumin, Random (w Creat) Today E11.65 - Type 2 diabetes mellitus with hyperglycemia, E11.9 - Type 2 diabetes mellitus without complications, Z79.4 - [facility] (current) use of insulin Alanine Aminotransferase Today E11.65 - Type 2 diabetes mellitus with hyperglycemia, Z79.4 - [facility] (current) use of insulin Platelet Count Today E11.65 - Type 2 diabetes mellitus with hyperglycemia, E11.9 - Type 2 diabetes mellitus without complications, Z79.4 - [facility] (current) use of insulin AMB Glucose Monitoring Today E11.9 - Type 2 diabetes mellitus without complications Referrals Endocrinology Referral E04.1 - Nontoxic single thyroid nodule Medications: New dextrose (TRUEplus Glucose) until symptoms of low blood sugar are controlled 15 grams (32 mL) PO Q15M PRN 128 mL 3RF hypoglycemia Coding Level of Care Code Est Pt Level 4 (60775) Diagnoses Type 2 diabetes mellitus with diabetic polyneuropathy, with long-term current use of insulin E11.42; Z79.4 Diabetes mellitus intermediate card tender insulin use: with intermediate use Thyroid nodule E04.1 CPT Codes Details - CPT: 27518 - Glucose monitoring, continuous-physician I&R ([id number])
[2024-09-14 14:00] VITALS: BP 108/58; PULSE 102; O2SAT 98; BMI 27.3
--- OUTSIDE RECORDS SUMMARY | 2024-09-14 14:04 | XMS_ITS | Encounter Summary ---
Author Organization [employer] Address [address] [facility] [address] [place] [address] Care Team Providers Care It Security Administrator Name Role Phone Juan R Blount MD Primary Care Provide r Reason for Visit * Reason Comments Med Refill Encounter Details Date Type Department Care Team ([facility] st Contact Info) Description 04/16/2024 Refill [facility] [address] [place] [address] Aggie Melendez MD [address] [place] [address] Primary insomnia Social History Tobacco Use Types [...] documented as of this encounter Care Teams It Security Administrator Relationship Specialty Start Date End Date Juan R Blount MD [address] [place] [address] PCP - General Internal Medicine 12/09/13 Shasta Sutton Endocrinology 08/23/24 documented as of this encounter
[2024-09-14 14:16] LABS: Glucose, Whole Blood 170 mg/dL (60-115)
== END 2024-09-14 14:41 | disposition home or self-care (01) ==
LOC: HO.ENCR 13:48
PROVIDERS: PCP Internal Medicine; Visit Provider Physician Assistant Medical
DX: E11.42 Type 2 diabetes mellitus with diabetic polyneuropathy (principal); Z79.4 Long term (current) use of insulin; E04.1 Nontoxic single thyroid nodule

== ENCOUNTER → 2024-09-14 13:47 | Outpatient (BNVA) | payer OTHER, SELFPAY | PROVIDERS: PCP Internal Medicine; Visit Provider Physician Assistant Medical | DX: E11.42 Type 2 diabetes mellitus with diabetic polyneuropathy (principal); E11.65 Type 2 diabetes mellitus with hyperglycemia; E04.1 Nontoxic single thyroid nodule; Z79.4 Long term (current) use of insulin; Z91.89 Other specified personal risk factors, not elsewhere classified | CPT/HCPCS: 82947; 83036; 99212 ==

== ENCOUNTER 2024-10-04 14:32 | Outpatient (AMB) | payer OTHER, SELFPAY ==
--- NOTE | 2024-10-04 14:34 | A.OFFVIS_ITS ---
Vital Signs 3 10/04/24 14:41 Height 5 ft 6 in Weight 167 lb 8.821 oz BMI 27.0 BP 118/67 Blood Pressure Location Lt brachial Position Sitting Pulse 107 H Intake Visit Reasons: breast bx results - done at [facility] Intake Note: Patient is seen in office for stereo biopsy RESULTS of the right breast. Pt c/o: admits to sore, bruise and tender, denies any other issues, here for results [employer] Required: No Accompanied by: Family/Other Allergies insulin detemir Allergy (Intermediate, Verified 10/04/24 14:41) Rash penicillin V Allergy (Intermediate, Verified 10/04/24 14:41) Rash acetaminophen (From Tylenol) Allergy (Mild, Verified 10/04/24 14:41) ITCH,RASH iodine (Iodine) Allergy (Mild, Verified 10/04/24 14:41) HIVES trimerosal Allergy (Intermediate, Uncoded 10/04/24 14:41) rash Latex Gloves Allergy (Mild, Uncoded 10/04/24 14:41) Rash METAL Allergy (Mild, Uncoded 10/04/24 14:41) HIVES Medication List - Last Reconciled 10/06/24 by George Bearden MD albuterol sulfate 90 mcg/actuation 2 puffs inhalation Q6H PRN amlodipine 5 mg PO BEDTIME aspirin 81 mg PO DAILY atenolol 12.5 mg PO BID atorvastatin 40 mg PO BEDTIME blood sugar diagnostic (FreeStyle Lite Strips) four times a day blood-glucose meter (FreeStyle Lite Meter kit) As directed blood-glucose sensor (FreeStyle Crystal 3 Sensor device) apply new sensor every 14 days blood-glucose,polysomnography tech,cont (FreeStyle Crystal 3 [place]) Use daily to monitor blood glucose levels continuously. [Cane As directed] dextrose (TRUEplus Glucose) 15 grams (32 mL) PO Q15M PRN docusate sodium 100 mg PO BEDTIME dulaglutide (Trulicity) 4.5 mg subcut MO@0900 fluticasone propion-salmeterol 500-50 mcg/dose (Advair Diskus) 1 inh inhalation BID gabapentin 800 mg PO TID glucose (Dex4 Glucose Quick Dissolve) 16 grams (4 x 4 gram) PO Q15M PRN insulin aspart U-100 (Novolog FlexPen U-100 Insulin aspart) 18 units subcut TIDAC insulin degludec (Tresiba FlexTouch U-200 insulin) 60 units (0.3 mL) subcut BEDTIME 30 days insulin syringe-needle U-100 As directed lancets (FreeStyle Lancets) four times a day lidocaine 5% 1 appl topical BID PRN losartan 100 mg PO DAILY montelukast (Singulair) 10 mg PO BEDTIME nicotine 21 mg transdermal DAILY pen needle, diabetic (BD Ultra-Fine Janene Pen Needle) As directed four times a day pioglitazone (Actos) 15 mg PO DAILY tramadol 50 mg PO TID 90 days umeclidinium 62.5 mcg/actuation (Incruse Ellipta) 1 inh inhalation DAILY zolpidem 10 mg PO BEDTIME PRN HPI Comments Details: 69-year-old female patient with a previous history of a CVA with right-sided weakness, COPD, type 2 diabetes, chronic kidney disease stage 3, and essential hypertension presenting following a recent mammogram and ultrasound performed as a six-month follow-up to a density in the right breast at the 10 o'clock position, 3 cm from the nipple performed on 09/01/2024. This lesion was again demonstrated in the 10 o'clock position approximately 3 cm from the nipple was felt to be either a solid versus complicated cyst and six-month follow-up ultrasound recommended. Also noted however was a focal asymmetry associated with distortion of the upper outer right breast in the posterior depth, 10 o'clock, 6 cm from the nipple, which was felt to be suspicious for malignancy and a stereotactic guided core biopsy was recommended. The patient denies any prior history of breast problems or breast surgery. Her family history is negative for breast cancer. Her menarche was the age of 11. She is G5, and had her 1st child to the age of 17. She underwent a sitting stereotactic guided core biopsy of the right breast at [facility] on 09/23/[facility]24. Pathology revealed invasive ductal carcinoma with tubulolobular features, grade 1, with DCIS present, low nuclear grade, ER positive, KS positive, HER2 Allan equivocal, FISH pending. She tolerated the biopsy well and presents today to discuss treatment options. [facility] Medical History (Updated 10/06/24 @ 08:37 by George Bearden MD) Invasive ductal carcinoma of right breast in female CVA (cerebral vascular accident) Osteopenia Screening examination for infectious disease Insulin dependent type 2 diabetes mellitus Elevated C-reactive protein Elevated sed rate Myalgia, upper arm Knee instability Back pain at L4-L5 level Knee pain, right Knee pain, left UTI (urinary tract infection) Proteinuria Hyperlipidemia Lumbar spondylosis Fibromyalgia Syncope COPD (chronic obstructive pulmonary disease) Depression Asthma Type 2 diabetes mellitus with hyperglycemia, with long-term current use of insulin Type 2 diabetes mellitus with chronic kidney disease Chronic kidney disease, stage 3 unspecified Type 2 diabetes mellitus with diabetic polyneuropathy Essential hypertension Surgical History Hx of mammogram Hx of colonoscopy Hx of oral surgery Hx of tubal ligation Family History Father No problems noted. Mother Heart disease CVD (cardiovascular disease) Diabetes Social History Household Members: Family Housing: Apartment Do you presently have visiting nurse or other home services: No Alcohol intake: never Patient Tobacco Use Status: Current everyday Tobacco user Tobacco use type: Cigarette Cigarette Packs Per Day: 0.5 Cigarettes Per Day: 10.0 Female Reproductive History Menstrual Age of Menarche: 11 Review of Systems Const All systems reviewed & are unremarkable except as noted in HPI and below Physical Exam Vital Signs: Last Vital Signs Pulse 107 H 10/04/24 14:41 BP 118/67 10/04/24 14:41 BMI result Body Mass Index 27.0 Const General: no acute distress Nutritional Appearance: well nourished Orientation/consciousness: patient oriented x3 Limitations: wheelchair HEENT Head: Yes normocephalic and Yes atraumatic Chest Other: From previous examination: Right breast: Palpable mass noted in the upper outer quadrant, 10 o'clock position corresponding to the abnormality seen on mammogram with no definite skin changes appreciated. Mass measures approximately 1.5-2 cm in diameter. No skin changes or nipple discharge could be expressed. No other palpable masses and no enlarged lymph nodes. Left breast: No skin change, nipple discharge, nipple retraction, palpable mass or enlarged lymph nodes. Chest/axillae images: 2 1. Biopsy site upper outer quadrant right breast with a minimal ecchymosis noted below. No hematoma appreciated. Resp Effort & Inspection: normal respiratory effort, no audible wheezes, no cough and no respiratory distress Neuro General: patient oriented x3 Assessment & Plan Assessment & Plan (1) Invasive ductal carcinoma of right breast in female: Code(s): C50.911 - Malignant neoplasm of unspecified site of right female breast Category: Medical Plan 69-year-old female patient with a newly diagnosed invasive ductal carcinoma of the right breast. I reviewed the pathology results and discuss the treatment options. After discussion of the procedure, risks, and alternatives, she has decided to proceed with and consents to a right breast lumpectomy with localizer, right axillary sentinel node biopsy. She will be scheduled as a short-stay surgery. Coding Level of Care Code Est Pt Level 4 (22356) Diagnoses Invasive ductal carcinoma of right breast in female C50.911
[2024-10-04 14:41] VITALS: BP 118/67; PULSE 107; BMI 27.0
--- OUTSIDE RECORDS SUMMARY | 2024-10-04 16:14 | XMS_ITS | Encounter Summary ---
Author Organization [employer] Address [address] [place] [address] Care Team Providers Care Circuit Rider Name Role Phone Juan R Blount MD Primary Care Provide r Reason for Visit * Reason Comments Med Refill Encounter Details Date Type Department Care Team ([facility] st Contact Info) Description 04/16/2024 Refill [facility] [address] [place] [address] Aggie Melendez MD [address] [place] [address] Primary insomnia Social History Tobacco Use Types [...] documented as of this encounter Care Teams Circuit Rider Relationship Specialty Start Date End Date Juan R Blount MD [address] [place] [address] PCP - General Internal Medicine 12/09/13 [facility] End[facility] 08/23/24 documented as of this encounter
== END 2024-10-04 15:49 | disposition home or self-care (01) ==
LOC: HO.HGS 14:32
PROVIDERS: PCP Internal Medicine; Visit Provider Surgery
DX: C50.911 Malignant neoplasm of unspecified site of right female breast (principal)
CPT/HCPCS: 99214

== ENCOUNTER → 2024-10-04 14:32 | Outpatient (BNVA) | payer OTHER, SELFPAY | PROVIDERS: PCP Internal Medicine; Visit Provider Surgery | DX: C50.411 Malignant neoplasm of upper-outer quadrant of right female breast (principal) | CPT/HCPCS: 99212 ==

== ENCOUNTER 2024-10-18 13:25 | Outpatient (REF) | payer OTHER, SELFPAY ==
[2024-10-18 14:58] LABS: MANUAL DIFF FLAG NO
[2024-10-18 15:17] LABS: Basophils Absolute Auto 0.1 X10*3/uL (0.0-0.2); Basophils Percent Auto 0.9 % (0-2); Eosinophils Absolute Auto 0.2 X10*3/uL (0.0-0.4); Eosinophils Percent Auto 1.6 % (0-4); Hematocrit 38.6 % (37.0-47.0); Hemoglobin 12.7 g/dl (12.0-16.0); Imm Gran Abs Auto 0.06 X10*3/uL (0.00-0.03); Imm Gran Pct Auto 0.4 % (0.0-0.4); Lymphocytes Absolute Auto 3.5 X10*3/uL (1.2-4.9); Lymphocytes Percent Auto 25.1 % (20-40); Mean Corpuscular HGB Conc 32.9 g/dl (31.0-35.0); Mean Corpuscular Hemoglobin 30.4 pg (27.0-33.0); Mean Corpuscular Volume 92.3 fL (80.0-98.0); Mean Platelet Volume 10.5 fL (9.4-12.3); Monocytes Absolute Auto 0.7 X10*3/uL (0.1-1.2); Monocytes Percent Auto 4.8 % (2-11); Neutrophils Absolute Auto 9.5 x10*3/uL (2.0-8.3); Neutrophils Percent Auto 67.2 % (45-73); Platelet Count 375 X10*3/uL (160-400); Red Blood Count 4.18 X10*6/uL (4.20-5.50); Red Cell Distribution Width 13.7 % (11.0-16.0); White Blood Count 14.1 X10*3/uL (4.8-10.8)
[2024-10-18 15:41] LABS: Alanine Aminotransferase 9 U/L (0-31); Aspartate Amino Transferase 23 U/L (5-31); Cholesterol 127 mg/dL (<200); Triglycerides 186 mg/dL (<150)
[2024-10-18 15:42] LABS: Anion Gap 12 (12-20); Blood Urea Nitrogen 16 mg/dL (9-16); Calcium 9.5 mg/dL (8.4-10.2); Carbon Dioxide 28 mmol/L (22-29); Chloride 106 mmol/L (96-108); Estimated Glomerular Filt Rate > 60; Glucose Random 148 mg/dL (60-115); Potassium 4.8 mmol/L (3.3-5.1); Sodium 141 mmol/L (135-145)
[2024-10-18 15:54] LABS: Thyroid Stimulating Hormone 2.14 uIU/mL (0.32-4.0)
[2024-10-18 15:57] LABS: Creatinine Urine 136.42 mg/dL; Microalbum/Creatinine Ratio Ur 20.5 ug/mg cr (<30)
[2024-10-18 15:59] LABS: Free T4 (Free Thyroxine) 0.96 ng/dL (0.71-1.85)
[2024-10-18 16:03] LABS: Vitamin B12 200 pg/mL (200-900)
[2024-10-18 16:04] LABS: HDL Cholesterol 34 mg/dL (>40); LDL Cholesterol Calculated 56 mg/dL (<100)
== END 2024-10-18 13:26 | disposition home or self-care (01) ==
LOC: HO.LAB 13:25
PROVIDERS: Absent Provider Internal Medicine; PCP Internal Medicine; Referring Provider Physician Assistant Medical; Visit Provider Student in an Organized Health Care Education/Training Program
DX: Z01.818 Encounter for other preprocedural examination (principal); E04.1 Nontoxic single thyroid nodule; E78.5 Hyperlipidemia, unspecified; E11.65 Type 2 diabetes mellitus with hyperglycemia; Z79.4 Long term (current) use of insulin; Z91.89 Other specified personal risk factors, not elsewhere classified
CPT/HCPCS: 36415; 80048; 80061; 82043; 82570; 82607; 84439; 84443; 84450; 84460; 85025; 99212

== ENCOUNTER 2024-10-18 13:25 | Outpatient (AMB) | payer OTHER, SELFPAY ==
--- NOTE | 2024-10-18 13:26 | A.OFFVIS_ITS ---
Vital Signs 10/18/24 13:27 Height 5 ft 6 in Weight 168 lb BMI 27.1 BP 102/50 L Blood Pressure Location Lt brachial Position Sitting Pulse 104 H Pulse Source Pulse Oximeter Pulse Oximetry (%) 94 Oxygen Delivery Method Room Air Intake Visit Reasons: Right thyroid nodule Intake Note: Patient present today for Right thyroid nodule. [employer] Required: No Accompanied by: Daughter Allergies insulin detemir Allergy (Intermediate, Verified 10/18/24 13:31) Rash penicillin V Allergy (Intermediate, Verified 10/18/24 13:31) Rash acetaminophen (From Tylenol) Allergy (Mild, Verified 10/18/24 13:31) ITCH,RASH iodine (Iodine) Allergy (Mild, Verified 10/18/24 13:31) HIVES trimerosal Allergy (Intermediate, Uncoded 10/18/24 13:31) rash Latex Gloves Allergy (Mild, Uncoded 10/18/24 13:31) Rash METAL Allergy (Mild, Uncoded 10/18/24 13:31) HIVES Medication List - Last Reconciled 10/18/24 by Eduarda Quintanilla MD albuterol sulfate 90 mcg/actuation 2 puffs inhalation Q6H PRN amlodipine 5 mg PO BEDTIME aspirin 81 mg PO DAILY atenolol 12.5 mg PO BID atorvastatin 40 mg PO BEDTIME blood sugar diagnostic (FreeStyle Lite Strips) four times a day blood-glucose meter (FreeStyle Lite Meter kit) As directed blood-glucose sensor (FreeStyle Crystal 3 Sensor device) apply new sensor every 14 days blood-glucose,equipment records supervisor,cont (FreeStyle Crystal 3 [place]) Use daily to monitor blood glucose levels continuously. [Cane As directed] dextrose (TRUEplus Glucose) 15 grams (32 mL) PO Q15M PRN docusate sodium 100 mg PO BEDTIME dulaglutide (Trulicity) 4.5 mg subcut MO@0900 fluticasone propion-salmeterol 500-50 mcg/dose (Advair Diskus) 1 inh inhalation BID gabapentin 800 mg PO TID glucose (Dex4 Glucose Quick Dissolve) 16 grams (4 x 4 gram) PO Q15M PRN insulin aspart U-100 (Novolog FlexPen U-100 Insulin aspart) 18 units subcut TIDAC insulin degludec (Tresiba FlexTouch U-200 insulin) 60 units (0.3 mL) subcut BEDTIME 30 days insulin syringe-needle U-100 As directed lancets (FreeStyle Lancets) four times a day lidocaine 5% 1 appl topical BID PRN losartan 100 mg PO DAILY montelukast (Singulair) 10 mg PO BEDTIME nicotine 21 mg transdermal DAILY pen needle, diabetic (BD Ultra-Fine Janene Pen Needle) As directed four times a day pioglitazone 15 mg PO QAM tramadol 50 mg PO TID 90 days umeclidinium 62.5 mcg/actuation (Incruse Ellipta) 1 inh inhalation DAILY zolpidem 10 mg PO BEDTIME PRN HPI Comments Details: 69-year-old female coming in today for initial evaluation of solitary left-sided thyroid nodule. She already follows in our practice for type 2 diabetes mellitus with [place] [facility]. This was not addressed today. Here today with daughter Padmini. In Dec 2023, presented with arm weakness , carotid doppler was done which picked Incidentally noted left nodule isoechoic to the thyroid measuring 3.1 x 2.8 x 3.0 cm . Ultrasound of the thyroid 08/18/2024, I reviewed the images myself which showed a large left solitary 3.3 cm solid isoechoic TR 3 category nodule. While this is quite low risk appearing with a 5-10% risk of malignancy, based on size would proceed with FNA. Normal TSH from January 2024 at 2.42. Patient currently denies heat or cold intolerance, diarrhea or constipation, hair loss, anxiety, weight changes, mood changes, low energy, changes in appearance of eyes or vision changes, tremors, increased diaphoresis or dry skin. ? Reports intermittent palpitations. Patient denies any difficulty swallowing, pain on swallowing or voice changes or difficulty breathing. Patient denies any history of childhood neck radiation. Denies having ever used lithium, amiodarone or biotin supplements. Patient denies any family history of thyroid cancer or thyroid disease. Smokes 5 cigarettes per day , smoking for a long time Also notable diagnosed with right invasive ductal breast cancer pending cardiology evaluation for clearance for lumpectomy. Physical exam General: sitting comfortably in no acute distress HEENT: normocephalic/atraumatic, Neck: supple, palpable left sided 2 cm nodule Cardiac: normal heart sounds Pulm: normal breath sounds B/L, no added breath sounds Abd: not distended, no tenderness Extremities: no edema, no signs of myxedema Laboratory Tests 02/03/24 11:37 TSH 2.42 EXAMINATION: US THYROID 08/18/24 HISTORY: nontoxic single rt 3.1 cm thyroid nodule TECHNIQUE: Real-time grayscale ultrasound imaging was performed and images were reviewed. COMPARISON: There are no prior studies for comparison. FINDINGS: SIZE: The right thyroid lobe measures 4.6 x 1.5 x 1.4 cm. The left thyroid lobe measures 4.6 x 2.8 x 3.2 cm. The isthmus measures 1 mm. FLOW: Flow to the gland is normal. ECHOGENICITY: The echotexture of the gland is homogeneous. NODULES: There is a left-sided nodule with imaging characteristics as follows: Nodule #: 1 Location: Left mid to lower pole measuring 3.3 x 2.7 x 3.2 cm. Shape: Wider than tall (0 points) Margins: Smooth (0 points) Echotexture: Isoechoic (1 point) Composition: Solid (2 points) Calcifications: None (0 points) Total points: 3 TIRADS: TR3: Mildly suspicious. US/US thyroid IMPRESSION: Solitary 3.3 x 2.7 x 3.2 cm left thyroid nodule. According to ACR TI-RADS guidelines below, ultrasound-guided fine-needle aspiration is recommended. [facility] Medical History (Updated 10/06/24 @ 08:37 by George Bearden MD) Invasive ductal carcinoma of right breast in female CVA (cerebral vascular accident) Osteopenia Screening examination for infectious disease Insulin dependent type 2 diabetes mellitus Elevated C-reactive protein Elevated sed rate Myalgia, upper arm Knee instability Back pain at L4-L5 level Knee pain, right Knee pain, left UTI (urinary tract infection) Proteinuria Hyperlipidemia Lumbar spondylosis Fibromyalgia Syncope COPD (chronic obstructive pulmonary disease) Depression Asthma Type 2 diabetes mellitus with hyperglycemia, with long-term current use of insulin Type 2 diabetes mellitus with chronic kidney disease Chronic kidney disease, stage 3 unspecified Type 2 diabetes mellitus with diabetic polyneuropathy Essential hypertension Surgical History Hx of mammogram Hx of colonoscopy Hx of oral surgery Hx of tubal ligation Family History Father No problems noted. Mother Heart disease CVD (cardiovascular disease) Diabetes Social History Household Members: Family Housing: Apartment Do you presently have visiting nurse or other home services: No Alcohol intake: never Patient Tobacco Use Status: Current everyday Tobacco user Tobacco use type: Cigarette Cigarette Packs Per Day: 0.5 Cigarettes Per Day: 10.0 Female Reproductive History Menstrual Age of Menarche: 11 Physical Exam Vital Signs: Last Vital Signs Pulse 104 H 10/18/24 13:27 BP 102/50 L 10/18/24 13:27 Pulse Ox 94 10/18/24 13:27 Oxygen Delivery Method Room Air 10/18/24 13:27 BMI result Body Mass Index 27.1 Assessment & Plan Assessment & Plan (1) Thyroid nodule: Code(s): E04.1 - Nontoxic single thyroid nodule Category: Medical Plan: 69-year-old female with no family history of thyroid cancer with no personal history of head or neck radiation coming in today for initial evaluation with me for solitary left-sided thyroid nodule. She has been seen by [facility] family medicine PA for type 2 diabetes mellitus in our practice. Ultrasound of the thyroid 08/18/2024, I reviewed the images myself which showed a large left solitary 3.3 cm solid isoechoic TR 3 category nodule. While this is quite low risk appearing with a 5-10% risk of malignancy, based on size would proceed with FNA. I explained that it is common to have thyroid nodules. About 95% of the time these nodules are benign. However if the nodule is > 1 cm in size or suspicious on ultrasound then a fine need aspiration biopsy is recommended. We discussed that a FNAB involves 4-5 passes with a small gauge needle and material obtained is sent off for cytology.If the cytopathology is benign then the nodule will be followed annually with repeat ultrasounds. However if it is suspicious or malignant, we will need to discuss further management. Indeterminate cytology can be further investigated with repeat FNA, genetic testing or empiric lobectomy. Malignant cytology is managed with either lobectomy or total thyroidectomy. We discussed briefly that thyroid cancer is, in most patients, an indolent disease that does not affect mortality. We will arrange for FNA left mid lower 3.3 cm thyroid nodule at next available opening and patient will follow up with me in clinic thereafter for results and further decision making. Plan: -scheduled for FNA of the left mid lower 3.3 cm thyroid nodule and a follow up 2 weeks after to discuss results -ordered TSH and free T4 to be done today Plan I spent 45 minutes in reviewing the record, seeing the patient and documenting in the medical record. Orders: Orders Thyroid Stimulating Hormone Today E04.1 - Nontoxic single thyroid nodule Free T4 (Free Thyroxine) Today E04.1 - Nontoxic single thyroid nodule US biopsy thyroid Today E04.1 - Nontoxic single thyroid nodule Patient Instructions: Do blood work today We will book you for a left-sided thyroid nodule biopsy and a follow up 2 weeks after to discuss results Coding Level of Care Code Est Pt Level 5 (02527) Diagnoses Thyroid nodule E04.1 Time Spent (min) 45
[2024-10-18 13:27] VITALS: BP 102/50; PULSE 104; O2SAT 94; BMI 27.1
--- OUTSIDE RECORDS SUMMARY | 2024-10-18 13:53 | XMS_ITS | Encounter Summary ---
Author Organization [employer] Address [address] [place] [address] Care Team Providers Care Oil Changer Name Role Phone Juan R Blount MD Primary Care Provide r Reason for Visit * Reason Comments Med Refill Encounter Details Date Type Department Care Team ([facility] st Contact Info) Description 04/16/2024 Refill [facility] PEDS [address] [place] [address] Aggie Melendez MD [address] [place] [address] Primary insomnia Social History Tobacco Use Types [...] as of this encounter Plan of Treatment Upcoming Encounters Date Type Department Care Team (Late st Contact Info) Description 12/23/2024 1:15 PM EDT Office Visit [facility] [address] [place] [address] Juan R Blount MD [address] [place] [address] documented as of this encounter Visit Diagnoses Diagnosis Primary insomnia Persistent disorder of initiating or maintaining sleep documented in this encounter Additional Health Concerns Assessment Noted Time PHQ-9 Depression Total Score: 3 01/15/20 24 1:38 PM EDT documented as of this encounter Care Teams Oil Changer Relationship Specialty Start Date End Date Juan R Blount MD [address] [place] [address] PCP - General Internal Medicine 12/09/13 [facility] Sutton Endocrinology 08/23/24 documented as of this encounter
--- OUTSIDE RECORDS SUMMARY | 2024-10-18 13:53 | XMS_ITS | Clinical Summary ---
Author Organization [facility] Address [address] [place] [phone] Phone Care Team Providers Care Table Runner Name Role Phone Juan R Bey MD Primary Care Provi nalini Encounters Date Type Department Care Team Description 09/27/2024 Telephone [facility] at [address] [phone] Shaan Calderón 09/23/2024 10:01 AM EDT - 09/23/2024 11:59 PM EDT Hospital Encounter [facility] [address] [phone] Other abnormal and inconclusive findings on diagnostic imaging of breast Discharge Disposition: Home or Self Care 09/23/2024 9:56 AM EDT - 09/23/2024 11:59 PM EDT Hospital [facility] at [address] [phone] Other abnormal and inconclusive findings on diagnostic imaging of breast Discharge Disposition: Home or Self Care from Last 3 Months Social History Tobacco Use Types Packs/Day Years Used Date Smoking Tobacco: Never Assessed Comments Unknown Sex and Gender Information Value Date Recorded Sex Assigned at Not on file Legal Sex Female 10:27 AM EDT Gender Identity Not on file Sexual Orientation Not on file Plan of Treatment Health Maintenance Due Date Last Done Comments Diabetes: Annual GFR (Glomerular Filtration Rate) 1955 Diabetes: Annual Foot Exam 1965 Diabetes: Annual Retina Eye Exam 1965 Zoster Vaccines (1 of 2) 1974 Pneumococcal Vaccine: 50+ Years (2 of 2 - PCV) 02/17/2004 02/16/2003 DTaP,Tdap,and Td Vaccines (2 - Td or Tdap) 07/13/2012 07/13/2002 RSV Immunization Adult Patients (1 - Risk 60-74 years 1-dose series) 2015 COVID-19 Vaccine ( season) 2023 04/29/2022, 12/11/2021, 07/11/2021, Additional history exists Cholesterol Screening (Lipid Panel) 09/03/2024 Colorectal Cancer Screening: Colonoscopy 09/03/2024 Falls Risk Assessment 09/03/2024 Hepatitis C Screening 09/03/2024 Medicare Annual Wellness Visit 09/03/2024 Osteoporosis Screening (Bone Density Screening) 09/03/2024 Social Influencers of Health Screening 09/03/2024 Diabetes: Annual Urine Albumin-Creatinine Ratio (uACR) 09/23/2024 Diabetes: Blood Sugar Control Test (HGBA1C) 09/23/2024 01/15/2024 Hypertension/CHF/CAD Annual BMP Blood Test 09/23/2024 Influenza Vaccine (Season Ended) 2024 Depression Screening 01/14/2025 01/15/2024 Breast Cancer Screening 09/23/2026 09/23/2024 HIB Vaccines Aged Out No longer eligi [...] on patient's age to complete this topic MMR Vaccines Aged Out No longer eligi ble based on patient's age to complete this topic Meningococcal ACWY Vaccine Aged Out N o longer eligible based on patient's age to complete this topic Meningococcal B Vaccine Aged Out No l onger eligible based on patient's age to complete this topic RSV Immunization Patients Under 20 months Aged Out No longer eligible based on patient's age to complete this topic Varicella Vaccines Aged Out No longer eligible based on patient's age to complete this topic Medical Devices Implanted Type Area Grocery Caddy Device Identifier Shelf Expiration Date Model / Serial / Lot Marker Breast Biopsy 10g Flexible Ti Open Coil Sible[employer]ark - [id number] Implanted:Qty: 1 on 09/23/2024 by Christos Warner MD at [facility] Imaging Implants Right: Breast DEV[employer]OR [id number] 03/10/2027 4010-05- 10-T3 / / [id number] Procedures Procedure Name Priority Date/Time Associated Diagnosis Comments MG STEREO BX BREAST PERC 1ST LESION RIGHT Routine 09/23/2024 11:22 AM EDT Other abnormal and inconclusive findings on diagnostic imaging of breast MG MAMMO DIGITAL DIAGNOSTIC POST CLIP RIGHT Routine 09/23/2024 11:17 AM EDT Other abnormal and inconclusive findings on diagnostic imaging of breast TISSUE EXAM Routine 09/23/2024 10:50 AM EDT Other abnormal and inconclusive findings on diagnostic imaging of breast HER-2 ALLAN, FISH Routine 09/23/2024 10:50 AM EDT Other abnormal and inconclusive findings on diagnostic imaging of breast from Last 3 Months Results * (ABNORMAL) MG Stereo Bx Breast Perc 1st Lesion Right (09/23/2024 11:22 AM EDT) Anatomical Region Laterality Modality Breast Right Mammography 09/23/2024 1:54 PM EDT Addenda Addendum by Christos Warner MD on 09/27/2024 2:26 PM EDT Addendum: The final pathology results from the procedure are now available; DATE: 09/23/24 LOCATION: 9 o'clock position, 7 cm from right nipple STEREOTACTICALLY GUIDED FINAL PATHOLOGY RESULT: Final Diagnosis A, B. Right breast, 9 o'clock, 7 cm from nipple, calcifications and associated tissue, open coil marker, stereotactic core biopsy: Invasive ductal carcinoma with tubulolobular features ? Greatest length of carcinoma: 14 mm Roxana score: Grade 1 Glandular/tubular morphology: 2 Nuclear pleomorphism: 2 Mitotic rate: 1 In situ carcinoma: Present, DCIS, low nuclear grade Lymphovascular invasion: Not identified ? CONCORDANCE: The final pathology results and imaging findings are concordant. ASSESSMENT: BI-RADS 6: KNOWN BIOPSY-PROVEN MALIGNANCY RECOMMENDATION(S): 1: Surgical consultation recommended RIGHT Take appropriate action. COMMUNICATION: Dr. Warner notified the patient of the results and recommendations for definitive treatment at approximately 1423 hours on 09/27/[address] Bearden. The patient will follow-up for definitive management with Dr. Bearden. The patient reports some pain at the biopsy site. The patient was advised to return for assessment or to follow up with Dr. Bearden Addendum: BREAST DENSITY: B - There are scattered areas of fibroglandular density. BI-RADS CATEGORY: 6 - KNOWN BIOPSY-PROVEN MALIGNANCY RECOMMENDATION: Clinical management of right breast is recommended. Surgical biopsy of the right breast is recommended. -------- ADDENDUM -------- Dictated By: Christos Warner Dictated Date: 09/27/2024 14:16 ET Assigned Physician: Christos Warner Reviewed and Electronically Signed By: Christos Warner Signed Date: 09/27/2024 14:26 ET Workstation ID: [id number] Transcribed By: Self Edit Transcribed Date: 09/27/2024 14:16 ET Impressions 09/23/2024 3:10 PM EDT STEREOTACTIC MAMMOGRAPHY was used to localize and guide right breast biopsy. STEREOTACTIC MAMMOGRAPHY was used to guide placement of a biopsy site marker. There was no evidence of immediate complication. Postprocedure mammography was performed. An addendum will be generated when the pathology results become available RECOMMENDATION: Pathology pending for the right breast. Location: [address], [address] -------- FINAL REPORT -------- Dictated By: Christos Warner Dictated Date: 09/23/2024 13:54 ET Assigned Physician: Christos Warner Reviewed and Electronically Signed By: Christos Warner Signed Date: 09/23/2024 15:10 ET Workstation ID: [id number] Transcribed By: Self Edit Transcribed Date: 09/23/2024 14:02 ET Narrative 09/23/2024 3:10 PM EDT EXAM: STEREOTACTIC MAMMOGRAPHY GUIDED BREAST BIOPSY, RIGHT BIOPSY SITE MARKER PLACEMENT : Biopsy site marker was placed POSTPROCEDURE MAMMOGRAPHY: Was performed EXAM DATE AND TIME: 09/23/2024 9:58 AM HISTORY: Focal asymmetry 9 o'clock position 7 cm from right nipple. Tissue diagnosis requested PROCEDURE: Informed consent was obtained. The patient takes a BABY ASPIRIN each day for a cardiac issue. I received a 2nd opinion from Dr. Arteaga. I reviewed the potential complications including the increased risk of bleeding related complications while on ASPIRIN with the patient and her daughter. We specifically discussed the potential for bruising, bruising and developing a hematoma. After weighing the potential risks and benefits we decided to proceed with the biopsy. A procedure pause was performed including patient identification using 3 identifiers. Preprocedure imaging demonstrated: A 1 cm high density irregular focal asymmetry in the 9 o'clock position 7 cm from right nipple. The previous imaging was performed elsewhere. The patient required an upright stereotactic biopsy unit. Using sterile technique and lidocaine anesthesia, Stereotactic mammography guided biopsy of the right breast was performed from a lateral approach. A 10 gauge Vacuum assisted core biopsy device was used. There was documentation of appropriate needle placement with digital archive. SPECIMEN RADIOGRAPHY: Was performed and demonstrates some calcifications. 4 specimens were placed in formalin and submitted for pathologic evaluation. A radiopaque marker was deployed at the site for future reference. BIOPSY SITE MARKER SHAPE: OPEN COIL HYDROMARK Upon completion of the procedure, pressure was applied until adequate hemostasis was obtained. The patient tolerated the procedure well and was discharged in good condition after being educated regarding post procedure care and instructions and contact information should she be concerned about a complication. The patient is aware of the potential for increased bleeding due to the aspiration. She was educated regarding the need for pressure, ice and limited activities. An addendum will be generated when the pathology results become available. Postprocedure mammography: Was performed Laterality: RIGHT TISSUE DENSITY: There are scattered areas of fibroglandular density. (BI-RADS category B) FINDINGS: The biopsy site marker appears appropriately positioned. There is no evidence of immediate complication. No new suspicious findings. us George Bearden MD IMG BI PROCEDURES Edited Resu lt - Final * (ABNORMAL) MG Mammo Digital Diagnostic Clip Post MG Guide Right (Statistics) (09/23/2024 11:17 AM EDT) Anatomical Region Laterality Modality Breast Right Mammography 09/23/2024 1:54 PM EDT Addenda Addendum by Christos Warner MD on 09/27/2024 2:26 PM EDT Addendum: The final pathology results from the procedure are now available; DATE: 09/23/24 LOCATION: 9 o'clock position, 7 cm from right nipple STEREOTACTICALLY GUIDED FINAL PATHOLOGY RESULT: Final Diagnosis A, B. Right breast, 9 o'clock, 7 cm from nipple, calcifications and associated tissue, open coil marker, stereotactic core biopsy: Invasive ductal carcinoma with tubulolobular features ? Greatest length of carcinoma: 14 mm [place] score: Grade 1 Glandular/tubular morphology: 2 Nuclear pleomorphism: 2 Mitotic rate: 1 In situ carcinoma: Present, DCIS, low nuclear grade Lymphovascular invasion: Not identified ? CONCORDANCE: The final pathology results and imaging findings are concordant. ASSESSMENT: BI-RADS 6: KNOWN BIOPSY-PROVEN MALIGNANCY RECOMMENDATION(S): 1: Surgical consultation recommended RIGHT Take appropriate action. COMMUNICATION: Dr. Warner notified the patient of the results and recommendations for definitive treatment at approximately 1423 hours on 09/27/[address] Bearden. The patient will follow-up for definitive management with Dr. Bearden. The patient reports some pain at the biopsy site. The patient was advised to return for assessment or to follow up with Dr. Bearden Addendum: BREAST DENSITY: B - There are scattered areas of fibroglandular density. BI-RADS CATEGORY: 6 - KNOWN BIOPSY-PROVEN MALIGNANCY RECOMMENDATION: Clinical management of right breast is recommended. Surgical biopsy of the right breast is recommended. -------- ADDENDUM -------- Dictated By: Christos Warner Dictated Date: 09/27/2024 14:16 ET Assigned Physician: Christos Warner Reviewed and Electronically Signed By: Christos Warner Signed Date: 09/27/2024 14:26 ET Workstation ID: [id number] Transcribed By: Self Edit Transcribed Date: 09/27/2024 14:16 ET Impressions 09/23/2024 3:10 PM EDT STEREOTACTIC MAMMOGRAPHY was used to localize and guide right breast biopsy. STEREOTACTIC MAMMOGRAPHY was used to guide placement of a biopsy site marker. There was no evidence of immediate complication. Postprocedure mammography was performed. An addendum will be generated when the pathology results become available RECOMMENDATION: Pathology pending for the right breast. Location: [address], [address] -------- FINAL REPORT -------- Dictated By: Christos Warner Dictated Date: 09/23/2024 13:54 ET Assigned Physician: Christos Warner Reviewed and Electronically Signed By: Christos Warner Signed Date: 09/23/2024 15:10 ET Workstation ID: [id number] Transcribed By: Self Edit Transcribed Date: 09/23/2024 14:02 ET Narrative 09/23/2024 3:10 PM EDT EXAM: STEREOTACTIC MAMMOGRAPHY GUIDED BREAST BIOPSY, RIGHT BIOPSY SITE MARKER PLACEMENT : Biopsy site marker was placed POSTPROCEDURE MAMMOGRAPHY: Was performed EXAM DATE AND TIME: 09/23/2024 9:58 AM HISTORY: Focal asymmetry 9 o'clock position 7 cm from right nipple. Tissue diagnosis requested PROCEDURE: Informed consent was obtained. The patient takes a BABY ASPIRIN each day for a cardiac issue. I received a 2nd opinion from Dr. Arteaga. I reviewed the potential complications including the increased risk of bleeding related complications while on ASPIRIN with the patient and her daughter. We specifically discussed the potential for bruising, bruising and developing a hematoma. After weighing the potential risks and benefits we decided to proceed with the biopsy. A procedure pause was performed including patient identification using 3 identifiers. Preprocedure imaging demonstrated: A 1 cm high density irregular focal asymmetry in the 9 o'clock position 7 cm from right nipple. The previous imaging was performed elsewhere. The patient required an upright stereotactic biopsy unit. Using sterile technique and lidocaine anesthesia, Stereotactic mammography guided biopsy of the right breast was performed from a lateral approach. A 10 gauge Vacuum assisted core biopsy device was used. There was documentation of appropriate needle placement with digital archive. SPECIMEN RADIOGRAPHY: Was performed and demonstrates some calcifications. 4 specimens were placed in formalin and submitted for pathologic evaluation. A radiopaque marker was deployed at the site for future reference. BIOPSY SITE MARKER SHAPE: OPEN COIL HYDROMARK Upon completion of the procedure, pressure was applied until adequate hemostasis was obtained. The patient tolerated the procedure well and was discharged in good condition after being educated regarding post procedure care and instructions and contact information should she be concerned about a complication. The patient is aware of the potential for increased bleeding due to the aspiration. She was educated regarding the need for pressure, ice and limited activities. An addendum will be generated when the pathology results become available. Postprocedure mammography: Was performed Laterality: RIGHT TISSUE DENSITY: There are scattered areas of fibroglandular density. (BI-RADS category B) FINDINGS: The biopsy site marker appears appropriately positioned. There is no evidence of immediate complication. No new suspicious findings. us George Bearden MD IMG BI PROCEDURES Edited Resu lt - Final * Tissue exam (09/23/2024 10:50 AM EDT) Addendum This case was [place] o [facility], [address] [place] [address], (CLIA #[id number]) for HER2 Breast studies. Their diagnosis is as follows: FISH Analysis - HER2 Breast Results: Negative Interpretation: RESULT INTERPRETATION HER2 Signals/Nucleus 3.2 CEN17 Signals/Nucleus 2.6 HER2/CEN17 Signal Ratio 1.2 Negative Number of Observers 1 Group 5 No IHC Needed Results show no evidence of HER2 amplification and a HER2/CEN17 ratio of <2.0 with an average HER2 copy number <4.0 signals per cell. This is a NEGATIVE result. Electronic Signature Dr. Caden Egan M.D. Pathologist Report Date: 10/05/2024 12:57:02 PM ET (Full report on file) 5:16 PM EDT [facility] Addendum electronically signed by Dulce Harp MD on 10/05/2024 at 5:16 PM Final Diagnosis A, B. Right breast, 9 o'clock, 7 cm from nipple, calcifications and associated tissue, open coil marker, stereotactic core biopsy: Invasive ductal carcinoma with tubulolobular features Greatest length of carcinoma: 14 mm [place] score: Grade 1 Glandular/tubular morphology: 2 Nuclear pleomorphism: 2 Mitotic rate: 1 In situ carcinoma: Present, DCIS, low nuclear grade Lymphovascular invasion: Not identified 5 5:16 PM EDT [facility] Comment Dr. Garcia provided second review for new malignancy. Dr. Warner notified via secure chat on 09/27/24. 5 5:16 PM [facility] Clinical Information Abnormal mammogram, 1.0 cm irregular high density focal asymmetry with probable distortion No history of surgery, but history of FAUS, mammo reported possible fat necrosis 9:00 7 cm FN, right Some calcs on specimen radiograph The biopsy is done for: Rare microcalcifications Ultrasound shows: Spiculated mass Probability that the target was sampled: High History of previous breast cancer: No History of non-breast cancer: No History of atypical hyperplasia: No History of radiation/chemotherap y: No 5 5:16 PM [facility] Gross Description A. Breast, Right, irregular high density focal asymmetry with calcs 9:00 7 cm from nipple: Labeled breast R and further designated right breast with calcs on the lid. Received in formalin is a 1.6 x 0.3 cm yellow-zelaya fibrofatty breast core which is submitted in toto between sponges in one cassette, one piece, x 3. B. Breast, Right, irregular high density focal asymmetry with tissue 9:00 7 cm from nipple: Labeled breast R and further designated right breast with tissue on the lid. Received in formalin with a plastic collection device are four focally firm yellow-zelaya fibrofatty breast cores, each measuring approximately 1.7 x 0.1 cm, which are submitted in toto between sponges in one cassette, four pieces, x 3. Time collected: 10:47 AM 09/23/2024 Time put in formalin: 10:52 AM 09/23/2024 Total cold ischemic time: 5 minutes Time tissue exits final stage of formalin on tissue processor: 9 PM 09/23/24 Total fixation time (ideally between 6 and 72 hours): 10 hours MAIA 5 5:16 PM [facility] Special Stains Because some lobular features were identified in the invasive carcinoma and some of the in situ carcinoma appeared more monomorphous, immunohistochemical staining with appropriate controls was performed. E-cadherin: Diffuse expression throughout the invasive and in situ carcinoma Beta-catenin: Diffuse expression throughout the invasive and in situ carcinoma These findings support ductal differentiation and tubulolobular features. Breast Carcinoma Biomarkers: Estrogen Receptor: Positive (>95% Positive nuclei, average intensity: strong) Internal controls stained appropriately Progesterone Receptor: Positive (30% Positive nuclei, average intensity: moderate) Internal controls stained appropriately HER2: Equivocal (2+) (0% of cells show strong complete membrane staining) All external controls stained appropriately Note: HER2-Allan FISH will be performed and will be reported in a supplemental report. Patients with breast cancers that are HER2 IHC 3+ or IHC 2+/JHONNY amplified may be eligible for several therapies that disrupt HER2 signaling pathways. Invasive breast cancers that test 'HER2-negative' (IHC 0, 1+ or 2+/JHONNY not-amplified) are more specifically considered 'HER2-negative for protein overexpression/gene amplification' since non-overexpressed levels of the HER2 protein may be present in these cases. Patients with breast cancers that are HER2 IHC 1+ or IHC 2+/JHONNY not amplified may be eligible for a treatment that targets non-amplified/non-ove rexpressed levels of HER2 expression for cytotoxic drug delivery (IHC 0 results do not result in eligibility currently). FFPE Block: B1 Cold Ischemia and Fixation Times: Meets requirements specified in the latest version of the ASCO/CAP guidelines These tests have not been validated for use on decalcified tissue, non-formalin fixed tissue, or tissue fixed outside of the ASCO/CAP guidelines. ASCO/CAP criteria for evaluation: ER: Staining evaluation ER: Low positive=1-10% positive nuclei, Positive >10% positive nuclei IN: Staining evaluation IN: Positive= >1% positive nuclei. HER2: Staining evaluation for HER2 (ASCO/CAP GUIDELINES 2018): - NEGATIVE (0): No staining or incomplete barely perceptible staining in <10 % of cells. - NEGATIVE (1+): Incomplete barely perceptible staining in >10 % of cells. - EQUIVOCAL (2+): Strong complete staining in 10% or less of cells or weak or moderate staining in >10 % cells. - POSITIVE (3+): Strong complete staining in more than 10% of cells. Detection system: Polymer HRP, [facility]-developed tests In Vitro Diagnostic: ER clone SP1 Cell Jose De Jesus, IN clone 16 Leica Analyte specific reagents: HER2 clone EP3 [employer] 5 5:16 PM EDT [facility] Disclaimer NOTE: The immunohistochemical tests and in situ hybridization tests were developed and their performance characteristics were determined by [facility]. They have not been cleared or approved by the U.S. Food and Drug Administration. The FDA has determined that such clearance or approval is not necessary. These tests are used for clinical purposes. They should not be regarded as investigational or for research. This laboratory is certified under the Clinical Laboratory Improvement Amendments of 1988 (CLIA) as qualified to perform high complexity clinical laboratory testing. (controls appropriate) Unless otherwise specified, all tissue is 10% NB formalin fixed and paraffin embedded. 5:16 PM EDT [facility] Tissue Right breast structure / Unknown 09/23/2024 10:50 AM EDT 09/23/2024 11:38 AM EDT Tissue specimen (specimen) Right breast structure / Unknown 09/23/2024 10:50 AM EDT 09/23/2024 11:38 AM EDT us Christos Warner MD LAB PATHOLOGY ORDERABLES Edit ed Result - Final [facility] [address] [place] [address], [place] [phone] * HER-2 ALLAN, FISH (09/23/2024 10:50 AM EDT) Scan Result See Scanned Result 10/06/2024 9:55 PM EDT EXTERNAL LAB (NON-INTERFAC ED) Tissue Right breast structure / Unknown 09/23/2024 10:50 AM EDT 09/28/2024 9:40 AM EDT us Christos Warner MD LAB CYTOGENETICS ORDERABLES F inal Result EXTERNAL LAB (NON-INTERFACED) from Last 3 Months Insurance [facility] MEDICARE Member Subscriber Plan / Payer (Ef fective 2016-Present) Name:TORRIE BRUSH Relation to Subscriber:Self Name:Torrie Brush Payer ID:[id number] Group ID:[id number] Type:Not on file Address: [place] [address] [address] [phone] Care Teams Table Runner Relationship Specialty Start Date End Date Juan R Bey MD [address] [place] [phone] PCP - General Internal Medicine 09/03/24
--- OUTSIDE RECORDS SUMMARY | 2024-10-18 13:53 | XMS_ITS | Patient Health Record ---
Author Organization [facility] Address [address] [place] [address] Care Team Providers Care Secret Code Expert Name Role Phone Angelito Vega MD, Juan R Primary Care Provide r Caden Berry [phone] Reason For Referral No Information Encounters Encounter Location Date Provider Diagnosis [facility] [address] [place] [address] 05/24/2024 Caden Huffman Plan Of Treatment No Information Insurance Providers Payer Name Payer Address Payer Phone Subscriber Number Group Number Insured Name Patient Relationship to Insured Coverage Start Date Coverage End Date [facility] [address] [place] [address] [id number] MERCEDES BRUSH Self - patient is the insured
--- OUTSIDE RECORDS SUMMARY | 2024-10-18 13:53 | XMS_ITS | Clinical Summary ---
Author Organization [facility] Address [address] [place] [address] [place] [phone] Phone Care Team Providers Care Mail Inserter Name Role Phone Juan R Eaton MD [...] this topic Insurance [place] Care Teams Mail Inserter Relationship Specialty Start Date End Date Juan R Eaton MD PCP - General Internal Medicine 08/23/20
== END 2024-10-18 14:33 | disposition home or self-care (01) ==
LOC: HO.ENCR 13:25
PROVIDERS: PCP Internal Medicine; Visit Provider Student in an Organized Health Care Education/Training Program
DX: E04.1 Nontoxic single thyroid nodule (principal)
CPT/HCPCS: 99215

== ENCOUNTER 2024-10-20 10:25 | Outpatient (AMB) | payer OTHER, SELFPAY ==
--- OUTSIDE RECORDS SUMMARY | 2024-10-20 10:59 | XMS_ITS | Clinical Summary ---
Author Organization [facility] Address [address] [place] [address] [place] [address] Phone Care Team Providers Care Thread Machine Operator Name Role Phone Juan R Eaton MD [...] this topic Insurance [place] Care Teams Thread Machine Operator Relationship Specialty Start Date End Date Juan R Eaton MD PCP - General Internal Medicine 08/23/20
--- OUTSIDE RECORDS SUMMARY | 2024-10-20 10:59 | XMS_ITS | Encounter Summary ---
Author Organization [employer] Address [address] [facility] 7t [place] [address] Care Team Providers Care Interior Surface Insulation Worker Name Role Phone Juan R Blount MD Primary Care Provide r Reason for Visit * Reason Comments Med Refill Encounter Details Date Type Department Care Team ([facility] st Contact Info) Description 04/16/2024 Refill [facility] [address] [place] [address] Aggie Melendez MD [address] [place] [address] Primary insomnia Social History Tobacco Use Types [...] Description 12/23/2024 1:15 PM EDT Office Visit [facility] [address] [place] [address] Juan R Blount MD [address] [place] [address] documented as of this encounter Visit Diagnoses Diagnosis Primary insomnia Persistent disorder of initiating or maintaining sleep documented in this encounter Additional Health Concerns Assessment Noted Time PHQ-9 Depression Total Score: 3 01/15/20 24 1:38 PM EDT documented as of this encounter Care Teams Interior Surface Insulation Worker Relationship Specialty Start Date End Date Juan R Blount MD [address] [place] [address] PCP - General Internal Medicine 12/09/13 Shasta Sutton Endocrinology 08/23/24 documented as of this encounter
--- OUTSIDE RECORDS SUMMARY | 2024-10-20 10:59 | XMS_ITS | Patient Health Record ---
Author Organization [facility] Address [address] [place] [address] Care Team Providers Care Rn Clinical Research Name Role Phone Angelito Vega MD, Juan R Primary Care Provide r Caden Berry [phone] Reason For Referral No Information Encounters Encounter Location Date Provider Diagnosis [facility] [address] [place] [address] 05/24/2024 Caden Huffman Plan Of Treatment No Information Insurance Providers Payer Name Payer Address Payer Phone Subscriber Number Group Number Insured Name Patient Relationship to Insured Coverage Start Date Coverage End Date [facility] [address] [place] [address] [id number] MERCEDES BRUSH Self - patient is the insured
--- OUTSIDE RECORDS SUMMARY | 2024-10-20 10:59 | XMS_ITS | Clinical Summary ---
Author Organization [facility] Address [address] [place] [phone] Phone Care Team Providers Care Peer Educator Name Role Phone Juan R Bey MD Primary Care Provi nalini Encounters Date Type Department Care Team Description 09/27/2024 [facility]phone [facility] at [address] [phone] Shaan Calderón 09/23/2024 10:01 AM EDT - 09/23/2024 11:59 PM EDT Hospital En[facility] at [address] [phone] Other abnormal and inconclusive findings on diagnostic imaging of breast Discharge Disposition: Home or Self Care 09/23/2024 9:56 AM EDT - 09/23/2024 11:59 PM EDT [facility] at [address] [phone] Other abnormal and inconclusive findings on diagnostic [...] this topic Medical Devices Implanted Type Area Masticator Device Identifier Shelf Expiration Date Model / Serial / Lot Marker Breast Biopsy 10g Flexible Ti Open Coil [employer] - [id number] Implanted:Qty: 1 on 09/23/2024 by Christos Warner MD at [facility] Imaging Implants Right: Breast [employer] [id number] 03/10/2027 4010-05- 10-T3 / / [id number] Procedures Procedure Name Priority Date/Time Associated [...] ? Greatest length of carcinoma: 14 mm [place] score: Grade 1 Glandular/tubular morphology: 2 Nuclear [...] Signed Date: 09/27/2024 14:26 ET Workstation ID: [id number] Transcribed By: Self Edit Transcribed Date: 09/27/2024 [...] Pathology pending for the right breast. Location: [address], [address] -------- FINAL REPORT -------- Dictated By: Christos Warner Dictated Date: 09/23/2024 13:54 ET Assigned Physician: Christos Warner Reviewed and Electronically Signed By: Christos Warner Signed Date: 09/23/2024 15:10 ET Workstation ID: [id number] Transcribed By: Self Edit Transcribed Date: 09/23/2024 [...] Signed Date: 09/27/2024 14:26 ET Workstation ID: [id number] Transcribed By: Self Edit Transcribed Date: 09/27/2024 [...] Pathology pending for the right breast. Location: [address], [address] -------- FINAL REPORT -------- Dictated By: Christos Warner Dictated Date: 09/23/2024 13:54 ET Assigned Physician: Christos Warner Reviewed and Electronically Signed By: Christos Warner Signed Date: 09/23/2024 15:10 ET Workstation ID: [id number] Transcribed By: Self Edit Transcribed Date: 09/23/2024 [...] Addendum This case was sent t o [facility], [address] [place], (CLIA #[id number]) for HER2 Breast studies. Their diagnosis is [...] (Full report on file) 5:16 PM EDT [facility] Addendum electronically signed by Dulce Harp MD on 10/05/2024 at 5:16 PM Final Diagnosis A, B. Right breast, 9 o'clock, 7 cm from nipple, calcifications and associated tissue, open coil marker, stereotactic core biopsy: Invasive ductal carcinoma with tubulolobular features Greatest length of carcinoma: 14 mm [place] score: Grade 1 Glandular/tubular morphology: 2 Nuclear pleomorphism: 2 Mitotic rate: 1 In situ carcinoma: Present, DCIS, low nuclear grade Lymphovascular invasion: Not identified 5 5:16 PM EDT [facility] Comment Dr. Garcia provided second review for new malignancy. Dr. Warner notified via secure chat on 09/27/24. 5 5:16 PM [facility] Clinical Information Abnormal mammogram, 1.0 cm [...] of radiation/chemotherap y: No 5 5:16 PM [facility] Gross Description A. Breast, Right, irregular [...] hours): 10 hours MAIA 5 5:16 PM [facility] Special Stains Because some lobular features [...] positive=1-10% positive nuclei, Positive >10% positive nuclei UT: Staining evaluation UT: Positive= >1% positive nuclei. HER2: Staining evaluation [...] ER clone SP1 Cell Jose De Jesus, [place] clone 16 Leica Analyte specific reagents: HER2 clone EP3 Biocare 5 5:16 PM EDT [facility] LAB Disclaimer NOTE: The immunohistochemical tests and in situ hybridization tests were developed and their performance characteristics were determined by [facility]. They have not been cleared [...] fixed and paraffin embedded. 5:16 PM EDT [facility] Tissue Right breast structure / Unknown 09/23/2024 10:50 AM EDT 09/23/2024 11:38 AM EDT Tissue specimen (specimen) Right breast structure / Unknown 09/23/2024 10:50 AM EDT 09/23/2024 11:38 AM EDT us Christos Warner MD LAB PATHOLOGY ORDERABLES Edit ed Result - Final [facility] [address] [place] [address], [place] [phone] * HER-2 ALLAN, FISH (09/23/2024 10:50 AM EDT) Scan Result See Scanned Result 10/06/2024 9:55 PM EDT EXTERNAL LAB (NON-INTERFAC ED) Tissue Right breast structure / Unknown 09/23/2024 10:50 AM EDT 09/28/2024 9:40 AM EDT us Christos Warner MD LAB CYTOGENETICS ORDERABLES F inal Result EXTERNAL LAB (NON-INTERFACED) from Last 3 Months Insurance [facility] MEDICARE Member Subscriber Plan / Payer (Ef fective 2016-Present) Name:TORRIE BRUSH Relation to Subscriber:Self Name:Torrie Brush Payer ID:[id number] Group ID:[id number] Type:Not on file Address: [place] [address] [address] [phone] Care Teams Peer Educator Relationship Specialty Start Date End Date Juan R Bey MD [address] [place] [address] PCP - General Internal Medicine 09/03/24
[2024-10-20 11:07] VITALS: BP 108/60; PULSE 88
--- NOTE | 2024-10-20 11:07 | MHC.OFFVIS ---
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/ stefaniet ca/abn ekg Allergies insulin detemir Allergy (Intermediate, Verified 10/18/24 13:31) Rash penicillin V Allergy (Intermediate, Verified 10/18/24 13:31) Rash acetaminophen (From Tylenol) Allergy (Mild, Verified 10/18/24 13:31) ITCH,RASH iodine (Iodine) Allergy (Mild, Verified 10/18/24 13:31) HIVES trimerosal Allergy (Intermediate, Uncoded 10/18/24 13:31) rash Latex Gloves Allergy (Mild, Uncoded 10/18/24 13:31) Rash METAL Allergy (Mild, Uncoded 10/18/24 13:31) HIVES Medication List - Last Reconciled 10/20/24 by David Sarmiento MD albuterol sulfate 90 mcg/actuation 2 puffs inhalation Q6H PRN amlodipine 5 mg PO BEDTIME aspirin 81 mg PO DAILY atenolol 12.5 mg PO BID atorvastatin 40 mg PO BEDTIME blood sugar diagnostic (FreeStyle Lite Strips) four times a day blood-glucose meter (FreeStyle Lite Meter kit) As directed blood-glucose sensor (FreeStyle Crystal 3 Sensor device) apply new sensor every 14 days blood-glucose,veterinary assistant technician,cont (FreeStyle Crystal 3 [place]) Use daily to monitor blood glucose levels continuously. [Cane As directed] cyanocobalamin (vitamin B-12) 1,000 mcg PO DAILY dextrose (TRUEplus Glucose) 15 grams (32 mL) PO Q15M PRN docusate sodium 100 mg PO BEDTIME dulaglutide (Trulicity) 4.5 mg subcut MO@0900 fluticasone propion-salmeterol 500-50 mcg/dose (Advair Diskus) 1 inh inhalation BID gabapentin 800 mg PO TID glucose (Dex4 Glucose Quick Dissolve) 16 grams (4 x 4 gram) PO Q15M PRN insulin aspart U-100 (Novolog FlexPen U-100 Insulin aspart) 18 units subcut TIDAC insulin degludec (Tresiba FlexTouch U-200 insulin) 60 units (0.3 mL) subcut BEDTIME 30 days insulin syringe-needle U-100 As directed lancets (FreeStyle Lancets) four times a day lidocaine 5% 1 appl topical BID PRN losartan 100 mg PO DAILY montelukast (Singulair) 10 mg PO BEDTIME nicotine 21 mg transdermal DAILY pen needle, diabetic (BD Ultra-Fine Janene Pen Needle) As directed four times a day pioglitazone 15 mg PO QAM tramadol 50 mg PO TID 90 days umeclidinium 62.5 mcg/actuation (Incruse Ellipta) 1 inh inhalation DAILY zolpidem 10 mg PO BEDTIME PRN Is last menstrual period known: Yes HPI Comments Details: Torrie is here for cardiac consultation regarding preoperative risk stratification for breast cancer surgery. Apparently thought to be having an abnormal EKG. On reviewing her, she has got multiple cardiovascular risk factors including smoking, diabetes on insulin, hypertension, dyslipidemia. There is mention of CVA in her history as well. She comes in a wheelchair. She states that she did not having any chest pain per se but having a vague sensation that she is not able to describe any further. Shortness of breath/wheezing related to history of asthma but she is also a smoker. Not documented to have any coronary disease or myocardial infarction or cardiomyopathy. [facility] Medical History (Updated 10/20/24 @ 11:35 by David Sarmiento MD) Invasive ductal carcinoma of right breast in female CVA (cerebral vascular accident) Osteopenia Screening examination for infectious disease Insulin dependent type 2 diabetes mellitus Elevated C-reactive protein Elevated sed rate Myalgia, upper arm Knee instability Back pain at L4-L5 level Knee pain, right Knee pain, left UTI (urinary tract infection) Proteinuria Hyperlipidemia Lumbar spondylosis Fibromyalgia Syncope COPD (chronic obstructive pulmonary disease) Depression Asthma Type 2 diabetes mellitus with hyperglycemia, with long-term current use of insulin Type 2 diabetes mellitus with chronic kidney disease Chronic kidney disease, stage 3 unspecified Type 2 diabetes mellitus with diabetic polyneuropathy Essential hypertension Surgical History Hx of mammogram Hx of colonoscopy Hx of oral surgery Hx of tubal ligation Family History Father No problems noted. Mother Heart disease CVD (cardiovascular disease) Diabetes Social History Household Members: Family Housing: Apartment Do you presently have visiting nurse or other home services: No Alcohol intake: never Patient Tobacco Use Status: Current everyday Tobacco user Tobacco use type: Cigarette Cigarette Packs Per Day: 0.5 Cigarettes Per Day: 10.0 Female Reproductive History Menstrual Age of Menarche: 11 Review of Systems Const Denies weakness ENT Denies dizziness Card Reports chest pain, Denies chest pain with activity, Denies syncope, Denies rapid heart rate, Denies pedal edema, Denies edema, Denies leg edema, Denies lightheadedness, Denies palpitations, Denies dyspnea, Denies dyspnea on exertion and Denies orthopnea Resp Denies cough, Denies dyspnea and Denies dyspnea on exertion GI Denies hematochezia and Denies change in stool character Musc Denies abnormal gait, Denies muscle cramps, Denies muscle weakness, Denies numbness, Denies radiating pain into limb and Denies tingling Neuro Denies abnormal gait, Denies dizziness, Denies syncope, Denies numbness, Denies tingling and Denies weakness Endo Denies palpitations Physical Exam Vital Signs: Last Vital Signs Pulse 88 10/20/24 11:07 BP 108/60 10/20/24 11:07 Const General: comfortable and no acute distress Orientation/consciousness: patient oriented x3 HEENT Other: Unremarkable Head: Yes normal to inspection Neck Neck: Yes normal visual inspection Chest Chest palpation & inspection: normal inspection of the chest Resp Auscultation: wheezes and diminished lung sounds Cardio Palpation: normal PMI Heart sounds: S1 normal heart sound present, S2 normal heart sound present, no gallops, Murmur heart sound present systolic II/ and no rubs GI Palpation (GI): Soft to palpation Back/Spine/Pelvis Other: unremarkable Skin General skin exam: no rashes or lesions noted Neuro General: patient oriented x3 Extrem General: Yes normal to inspection Psych Mental Status: mental status grossly normal Office Procedures EKG Details: EKG with underlying sinus rhythm at 88/Min; cannot exclude old septal infarct but could be from body habitus; [place] [address]-Hpvomnxyxhosumrlz, Complete Assessment & Plan Assessment & Plan (1) Preoperative cardiovascular examination: Code(s): Z01.810 - Encounter for preprocedural cardiovascular examination Category: Medical (2) Type 2 diabetes mellitus with hyperglycemia, with long-term current use of insulin: Code(s): E11.65 - Type 2 diabetes mellitus with hyperglycemia; Z79.4 - director long term care (current) use of insulin Category: Medical (3) Essential hypertension: Code(s): I10 - Essential (primary) hypertension Category: Medical (4) Nicotine dependence: Code(s): F17.200 - Nicotine dependence, unspecified, uncomplicated Category: Medical (5) Hyperlipidemia: Code(s): E78.5 - Hyperlipidemia, unspecified Category: Medical Plan Overall, multiple cardiovascular risk factors, poor ambulation, in a wheelchair, abnormal EKG. On comparison prior EKGs, somewhat similar and hence body habitus could play a role. She has got an aortic sclerosis versus stenosis murmur. She needs an echocardiogram for assessing that. Subsequently, we will need pharmacological stress perfusion imaging study. Once these are completed and reviewed, we can make an addendum. Orders: Orders CA echo transthoracic complete Today I35.0 - Nonrheumatic aortic (valve) stenosis, Z01.810 - Encounter for preprocedural cardiovascular examination Coding Level of Care Code New Pt Level 4 (31815) Complex EM visit Add On G2211 Diagnoses Preoperative cardiovascular examination Z01.810 Type 2 diabetes mellitus with hyperglycemia, with long-term current use of insulin E11.65; Z79.4 Essential hypertension I10 Nicotine dependence F17.200 Hyperlipidemia E78.5 CPT Codes EKG - CPT: 45702-Hhymlxoipunhaxpkf, Complete ([id number])
== END 2024-10-20 11:53 | disposition home or self-care (01) ==
LOC: HO.HCS 10:26
PROVIDERS: PCP Internal Medicine; Visit Provider Internal Medicine
DX: Z01.810 Encounter for preprocedural cardiovascular examination (principal); E11.65 Type 2 diabetes mellitus with hyperglycemia; Z79.4 Long term (current) use of insulin; I10 Essential (primary) hypertension; F17.200 Nicotine dependence, unspecified, uncomplicated; E78.5 Hyperlipidemia, unspecified
CPT/HCPCS: 93010; 99204; G2211

== ENCOUNTER → 2024-10-20 10:25 | Outpatient (BNVA) | payer OTHER, SELFPAY | PROVIDERS: PCP Internal Medicine; Visit Provider Internal Medicine | DX: Z01.810 Encounter for preprocedural cardiovascular examination (principal); I10 Essential (primary) hypertension; E78.5 Hyperlipidemia, unspecified; E11.65 Type 2 diabetes mellitus with hyperglycemia; F17.210 Nicotine dependence, cigarettes, uncomplicated; Z79.4 Long term (current) use of insulin; R94.31 Abnormal electrocardiogram [ECG] [EKG] | CPT/HCPCS: 93005; 99202 ==

== ENCOUNTER 2024-11-10 09:47 | Outpatient (REF) | payer OTHER, SELFPAY ==
--- OUTSIDE RECORDS SUMMARY | 2024-11-10 10:24 | XMS_ITS | Encounter Summary ---
Author Organization [employer] Address [address] [facility] [address] [place] [address] Care Team Providers Care Funeral Pre Arrangement Counselor Name Role Phone Juan R Blount MD Primary Care Provide r Reason for Visit * Reason Comments Med Refill Encounter Details Date Type Department Care Team ([facility] st Contact Info) Description 04/16/2024 Refill [facility] MED & PEDS [address] [place] [address] Aggie Melendez MD [address] [place] [address] Primary insomnia Social History Tobacco Use Types [...] Description 12/23/2024 1:15 PM EDT Office Visit [facility] MEDICINE [address] [place] [address] Juan R Blount MD [address] [place] [address] documented as of this encounter Visit Diagnoses Diagnosis Primary insomnia Persistent disorder of initiating or maintaining sleep documented in this encounter Additional Health Concerns Assessment Noted Time PHQ-9 Depression Total Score: 3 01/15/20 24 1:38 PM EDT documented as of this encounter Care Teams Funeral Pre Arrangement Counselor Relationship Specialty Start Date End Date Juan R Blount MD [address] [place] [address] PCP - General Internal Medicine 12/09/13 Shasta Sutton Endocrinology 08/23/24 documented as of this encounter
--- OUTSIDE RECORDS SUMMARY | 2024-11-10 10:24 | XMS_ITS | Clinical Summary ---
Author Organization [facility] Address [address] [place] [phone] Phone Care Team Providers Care Application Project Leader Name Role Phone Juan R Bey MD Primary Care Provi nalini Encounters Date Type Department Care Team Description 09/27/2024 Telephone [facility] [address] [phone] Shaan Calderón 09/23/2024 10:01 AM EDT - 09/23/2024 11:59 PM EDT Hospital [facility] [address] [phone] Other abnormal and inconclusive findings on diagnostic imaging of breast Discharge Disposition: Home or Self Care 09/23/2024 9:56 AM EDT - 09/23/2024 11:59 PM EDT [facility] [address] [phone] Other abnormal and inconclusive findings on diagnostic [...] 2023 04/29/2022, 12/11/2021, 07/11/2021, Additional history exists Depression Screening 04/21/2024 Cholesterol Screening (Lipid Panel) 09/03/2024 Colorectal Cancer Screening: Colonoscopy 09/03/2024 Falls Risk Assessment 09/03/2024 Hepatitis C Screening 09/03/2024 Medicare Annual Wellness Visit 09/03/2024 Osteoporosis Screening (Bone Density Screening) 09/03/2024 Social Influencers of Health Screening 09/03/2024 Diabetes: Annual Urine Albumin-Creatinine Ratio (uACR) 09/23/2024 Diabetes: Blood Sugar Control Test (HGBA1C) 09/23/2024 01/15/2024 Hypertension/CHF/CAD Annual BMP Blood Test 09/23/2024 Influenza Vaccine (#1) 2024 Breast Cancer Screening 09/23/2026 09/23/2024 HIB Vaccines [...] this topic Medical Devices Implanted Type Area Resource Room Teacher Device Identifier Shelf Expiration Date Model / Serial / Lot Marker Breast Biopsy 10g Flexible Ti Open Coil [employer] - [id number] Implanted:Qty: 1 on 09/23/2024 by Christos Warner MD at [facility] Imaging Implants Right: Breast DEVICOR [employer] [id number] 03/10/2027 4010-05- 10-T3 / / [id number] Procedures Procedure Name Priority Date/Time Associated [...] Signed Date: 09/27/2024 14:26 ET Workstation ID: [id number] Transcribed By: Self Edit Transcribed Date: 09/27/2024 [...] Pathology pending for the right breast. Location: [address], [address] -------- FINAL REPORT -------- Dictated By: Christos Warner Dictated Date: 09/23/2024 13:54 ET Assigned Physician: Christos Warner Reviewed and Electronically Signed By: Christos Warner Signed Date: 09/23/2024 15:10 ET Workstation ID: [id number] Transcribed By: Self Edit Transcribed Date: 09/23/2024 [...] Signed Date: 09/27/2024 14:26 ET Workstation ID: [id number] Transcribed By: Self Edit Transcribed Date: 09/27/2024 [...] Pathology pending for the right breast. Location: [address], [address] -------- FINAL REPORT -------- Dictated By: Christos Warner Dictated Date: 09/23/2024 13:54 ET Assigned Physician: Christos Warner Reviewed and Electronically Signed By: Christos Warner Signed Date: 09/23/2024 15:10 ET Workstation ID: [id number] Transcribed By: Self Edit Transcribed Date: 09/23/2024 [...] Addendum This case was sent t o [facility], [address], [place], [place], (CLIA #[id number]) for HER2 Breast studies. Their diagnosis is [...] 12:57:02 PM ET (Full report on file) 5 5:16 PM EDT [facility] Addendum electronically signed by Dulce Harp MD on 10/05/2024 at 5:16 PM Final Diagnosis A, B. Right breast, 9 o'clock, 7 cm from nipple, calcifications and associated tissue, open coil marker, stereotactic core biopsy: Invasive ductal carcinoma with tubulolobular features Greatest length of carcinoma: 14 mm [place] score: Grade 1 Glandular/tubular morphology: 2 Nuclear pleomorphism: 2 Mitotic rate: 1 In situ carcinoma: Present, DCIS, low nuclear grade Lymphovascular invasion: Not identified 5 5:16 PM EDT [facility] Comment Dr. Garcia provided second review for new malignancy. Dr. Warner notified via secure chat on 09/27/24. 5 [facility] Clinical Information Abnormal mammogram, 1.0 [...] of radiation/chemotherap y: No 5 5:16 PM [facility] ([facility] Gross Description A. Breast, Right, [...] hours): 10 hours MAIA 5 5:16 PM [facility] ([facility]) [facility] Special Stains Because some lobular [...] positive=1-10% positive nuclei, Positive >10% positive nuclei NC: Staining evaluation NC: Positive= >1% positive nuclei. HER2: Staining evaluation [...] In Vitro Diagnostic: ER clone SP1 Cell Joes De Jesus, [place] clone 16 Leica Analyte specific reagents: HER2 clone EP3 Biocare 5 5:16 PM EDT [facility] ([facility] HOSPITAL LAB Disclaimer NOTE: The immunohistochemical tests and in situ hybridization tests were developed and their performance characteristics were determined by [facility]. They have not [...] fixed and paraffin embedded. 5:16 PM EDT [facility] Tissue Right breast structure / Unknown 09/23/2024 10:50 AM EDT 09/23/2024 11:38 AM EDT Tissue specimen (specimen) Right breast structure / Unknown 09/23/2024 10:50 AM EDT 09/23/2024 11:38 AM EDT us Christos Warner MD LAB PATHOLOGY ORDERABLES Edit ed Result - Final Performing Organization Address City/[facility]/ZIP Co de Phone Number [facility]) [facility] [address] [place] [address], * HER-2 ALLAN, FISH (09/23/2024 10:50 AM EDT) Scan Result See Scanned Result 10/06/2024 9:55 PM EDT EXTERNAL LAB (NON-INTERFAC ED) Tissue Right breast structure / Unknown 09/23/2024 10:50 AM EDT 09/28/2024 9:40 AM EDT us Christos Warner MD LAB CYTOGENETICS ORDERABLES F inal Result EXTERNAL LAB (NON-INTERFACED) from Last 3 Months Insurance [facility] Member Subscriber Plan / Payer (Ef fective 2016-Present) Name:TORRIE BRUSH Relation to Subscriber:Self Name:Torrie Brush Payer ID:[id number] Group ID:[id number] Type:Not on file Address: [place] [address] [address] [phone] Care Teams Application Project Leader Relationship Specialty Start Date End Date Juan R Bey MD [address] [place] [address] PCP - General Internal Medicine 09/03/24
--- OUTSIDE RECORDS SUMMARY | 2024-11-10 10:25 | XMS_ITS | Patient Health Record ---
Author Organization [facility] Address [address] [place] [address] Care Team Providers Care Project Portfolio Analyst Name Role Phone Angelito Vega MD, Juan R Primary Care Provide r Caden Berry [phone] Reason For Referral No Information Encounters Encounter Location Date Provider Diagnosis [facility] [address] [place] [address] 05/24/2024 Caden Huffman Plan Of Treatment No Information Insurance Providers Payer Name Payer Address Payer Phone Subscriber Number Group Number Insured Name Patient Relationship to Insured Coverage Start Date Coverage End Date [facility] [address] [place] [address] [id number] MERCEDES BRUSH Self - patient is the insured
--- OUTSIDE RECORDS SUMMARY | 2024-11-10 10:25 | XMS_ITS | Clinical Summary ---
Author Organization [facility] Address [address] [place] [address] [place] [place] [address] Phone Care Team Providers Care Electric Meter Repairer Name Role Phone Juan R Eaton [...] Colorectal Cancer Screening: Sigmoidoscopy 01/25/2004 Influenza Vaccine (#1) 2024 Hepatitis B Vaccine Aged Out No longe r eligible based on patient's age to complete this topic Insurance Commonwealth Commonwealth Care Teams Electric Meter Repairer Relationship Specialty Start Date End Date Juan R Eaton MD PCP - General Internal Medicine 08/23/20
--- NOTE | 2024-11-10 11:27 | PCN2_ITS ---
Brief Operative Note Date of procedure: 11/10/24 Pre-op diagnosis: left mid lower 3.3 cm thyroid nodule FNA biopsy Post-op diagnosis: same Procedure: THYROID FINE NEEDLE ASPIRATION PROCEDURE NOTE ? PROCEDURE PERFORMED: Ultrasound-guided FNA of thyroid nodule ? OPERATORS: Dr. Eduarda Quintanilla ? INDICATION: left mid lower 3.3 cm thyroid nodule ; FNA performed to assess for malignancy ? DESCRIPTION OF PROCEDURE: The indications for FNA (to assess for malignancy) were reviewed with the patient in detail. Potential complications (e.g., bleeding, infection, damage to local structures, absence of clear diagnosis after FNA) were reviewed. Alternatives to FNA including conservative observation or surgery were described. The patient understood and agreed to proceed. This was documented by the signing of the written informed consent form. A time-out was performed to confirm the patient's identity and the site of planned FNA. The nodule of interest was identified using ultrasound (14 MHz linear array probe). The site of FNA was then draped in the usual fashion and ca refully cleaned and prepared using alcohol swabs. The skin at the previously-identified site of needle insertion was iced and sprayed with numbing spray. Under ultrasound guidance, 5__ passes were performed using a 1.5-inch, 25-gauge needle, and sample was obtained via capillary action. The needle tip was clearly visualized to be within the nodule at the time of sampling for _3_ of 5__ passes. Unfortunately there was some clotting in the sample of the 5th pass. The patient tolerated the procedure well. There were no immediate complications. A small adhesive bandage was applied, and the patient was advised to take acetaminophen (rather than NSAIDs) for any discomfort and to report any signs of inflammation/infection or marked swelling. IMPRESSION: Technically successful ultrasound-guided fine needle aspiration of left mid lower 3.3 cm thyroid nodule. PLAN: The patient was advised that I will provide follow-up regarding the cytology result and any subsequent plans. Eduarda Quintanilla MD Endocrinology Attending Condition: stable Disposition: same day
== END 2024-11-10 09:48 | disposition home or self-care (01) ==
LOC: HO.US 09:47
PROVIDERS: PCP Internal Medicine; Visit Provider Student in an Organized Health Care Education/Training Program
DX: E04.1 Nontoxic single thyroid nodule (principal)
CPT/HCPCS: 10005; 88173; 88305

== ENCOUNTER → 2024-11-10 09:47 | Outpatient (BNV) | payer OTHER, SELFPAY | PROVIDERS: PCP Internal Medicine; Visit Provider Student in an Organized Health Care Education/Training Program | DX: E04.1 Nontoxic single thyroid nodule (principal) | CPT/HCPCS: 10005 ==

== ENCOUNTER → 2024-11-17 14:27 | Outpatient (REF) | payer OTHER, SELFPAY ==
--- NOTE | 2024-11-17 14:38 | CA_ITS ---
Transthoracic Echocardiogram Patient (Last, First, Middle): Torrie Sy, Gender: Female Date of : 1955 Age: 69 Procedure Date: 11/17/2024 Procedure Type: Transthoracic Echocardiogram Location: OP Height: 167.64 cm Weight: 76.2 kg BSA: 1.86 m2 Heart Rate: bpm BP: 108 / 60 mmHg Chain Maker Hand: FLORECITA Referring MD: David Sarmiento MD Housekeeper Caregiver: Tre Seo MD Symptoms: Z01.810 - Encounter for preprocedural cardiovascular examination Study Quality: Fair ECG Rhythm: Sinus Conclusions: - 1. Normal LV ejection fraction of 65-70% 2. Mild aortic regurgitation possible mild early aortic stenosis 3. No gross pericardial effusion Findings Procedure Information The study quality is limited by the patients inability to tolerate the test. Left Ventricle Normal left ventricular size, thickness, and systolic function. The visually estimated ejection fraction is between 65-70%. Spectral Doppler is indicative of a normal filling pattern. Right Ventricle Normal right ventricular cavity size. Atria The left atrium is normal in size. Interatrial shunt cannot be excluded. The right atrium was not well visualized. Aortic Valve The aortic valve was not well visualized. There is mild aortic valve stenosis. The peak aortic gradient is 13 mmHg.The mean gradient is 7 mmHg. The aortic valve area is 1.78 cm2. There is mild aortic valve regurgitation. Mitral Valve Normal mitral valve structure and function. There is mild anterior mitral leaflet thickening. There is mild mitral annular calcification. There is trace mitral valve regurgitation. There is no mitral valve stenosis. Pulmonic Valve The pulmonic valve is likely normal. Tricuspid Valve Likely normal tricuspid valve structure and function. Tricuspid regurgitation envelope is inadequate for calculation of right ventricular systolic pressure. Normal right atrial pressure. Great Vessels The pulmonary artery was not well visualized. There is no dilatation of the ascending aorta measuring 3.10 cm. Venous The inferior vena cava is normal in size and collapses greater than 50% with inspiration. Pericardium/Pleural There is no evidence of pericardial effusion. Prior Study Comparison no previous study in the last 5 years for comparison Measurements 2D Linear Measurements IVSd: 0.81 0.6-0.9/0.6-1.0 cm LVIDd: 3.71 3.9-5.3/4.2-5.9 cm LVIDd Index: 1.99 2.4-3.2/2.2-3.1 cm/m2 LVIDs: 2.28 2.0-3.6 cm LVPWd: 0.76 0.7-1.1 cm LA Diam: 2.10 2.7-3.8/3.0-4.0 cm LAIDs Index: 1.13 1.5-2.3 cm/m2 LV Mass: 100.50 67-162/88-224 g LV Mass Index: 54.03 43-95/49-115 g/m2 LVOT Diam: 2.00 3.0+(-)1.3 cm 2D Systolic Function EF 4C: 68.40 >55% EF 2C: 63.10 >55% EF BiP: 65.70 >55% Mitral Valve MV Pk E: 0.71 MV PK A: 1.12 MV Decel Time: 139.00 E/A: 0.60 E'Lateral: 8.27 E'Medial: 8.05 E/E' Med: 8.80 E/E' Lat: 8.60 PHT: 41.00 MVA PHT: 5.37 Decel [place]: 5.12 Aortic Valve AoV Pk Drik: 1.79 AoV Mn Dirk: 1.26 AoV VTI: 0.30 AoV Pk Grad: 13.00 Aov Mn Grad: 7.00 MOHAMUD Cont.VTI: 1.78 AI Pk Dirk: 3.34 AI [place]: 2.32 LVOT LVOT Pk Dirk: 0.97 LVOT Mn Dirk: 0.74 LVOT VTI: 0.17 LVOT Pk Grad: 4.00 LVOT Mn Grad: 2.00 LVOT Diam: 2.00 LVOT Area: 3.14 Diastolic Function MV Pk E: 0.71 MV Pk A: 1.12 E/A: 0.60 E'Medial: 8.05 E/E' Med: 8.80 E' Laterial: 8.27 E/E' Lat: 8.60 Right Ventricle TAPSE (mm): 24.30 TVS' Dirk: 14.00 Tricuspid Valve RA Press: 3.00 Great Vessels Aorta Sinus of Valsalva: 3.17 2.0-3.5 cm Ao Asc: 3.10 2.1-3.4 cm Updated in Other Vendor System with Status of Final Tre Seo MD electronically signed on 11/18/2024 11:32:12 AM with status of Final
--- OUTSIDE RECORDS SUMMARY | 2024-11-17 15:09 | XMS_ITS | Clinical Summary ---
Author Organization [facility] Address [address] [place] [address] [address] Phone Care Team Providers Care Housekeeping Assistant Name Role Phone Juan R Eaton MD [...] this topic Insurance Commonwealth Commonwealth Care Teams Housekeeping Assistant Relationship Specialty Start Date End Date Juan R Eaton MD PCP - General Internal Medicine 08/23/20
--- OUTSIDE RECORDS SUMMARY | 2024-11-17 15:09 | XMS_ITS | Clinical Summary ---
Author Organization [facility] Address [address] [place] [phone] Phone Care Team Providers Care College Football Coach Name Role Phone Juan R Bey MD Primary Care Provi nalini Encounters Date Type Department Care Team Description 09/27/2024 Telephone [facility] at [address] [phone] Shaan Calderón 09/23/2024 10:01 AM EDT - 09/23/2024 11:59 PM EDT Hospital Encounter [facility] [address] [phone] Other abnormal and inconclusive findings on diagnostic imaging of breast Discharge Disposition: Home or Self Care 09/23/2024 9:56 AM EDT - 09/23/2024 11:59 PM EDT Hospital Encounter [facility] at [address] [phone] Other abnormal and inconclusive findings on diagnostic [...] this topic Medical Devices Implanted Type Area Skirt Trimmer Device Identifier Shelf Expiration Date Model / Serial / Lot Marker Breast Biopsy 10g Flexible Ti Open Coil Hydromark - [id number] Implanted:Qty: 1 on 09/23/2024 by Christos Warner MD at [facility] Imaging Implants Right: Breast DEVICOR [employer] [id number] 03/10/2027 4010-05- 10-T3 / / [id number] Procedures Procedure Name Priority Date/Time Associated [...] Signed Date: 09/27/2024 14:26 ET Workstation ID: [id number] Transcribed By: Self Edit Transcribed Date: 09/27/2024 [...] pending for the right breast. Location: [address], [address] -------- FINAL REPORT -------- Dictated By: Christos Warner Dictated Date: 09/23/2024 13:54 ET Assigned Physician: Christos Warner Reviewed and Electronically Signed By: Christos Warner Signed Date: 09/23/2024 15:10 ET Workstation ID: [id number] Transcribed By: Self Edit Transcribed Date: 09/23/2024 [...] Signed Date: 09/27/2024 14:26 ET Workstation ID: [id number] Transcribed By: Self Edit Transcribed Date: 09/27/2024 [...] pending for the right breast. Location: [address], [address] -------- FINAL REPORT -------- Dictated By: Christos Warner Dictated Date: 09/23/2024 13:54 ET Assigned Physician: Christos Warner Reviewed and Electronically Signed By: Christos Warner Signed Date: 09/23/2024 15:10 ET Workstation ID: [id number] Transcribed By: Self Edit Transcribed Date: 09/23/2024 [...] Addendum This case was sent t o [facility], [address], [place], [place], (CLIA #[id number]) for HER2 Breast studies. Their diagnosis is [...] report on file) 5 5:16 PM EDT [facility] Addendum electronically signed by [...] invasion: Not identified 5 5:16 PM EDT [facility] Comment Dr. Garcia provided second review for new malignancy. Dr. Warner notified via secure chat on 09/27/24. 5 5[facility] Clinical Information Abnormal mammogram, 1.0 [...] radiation/chemotherap y: No 5 5:16 PM [facility] Gross Description A. Breast, Right, irregular [...] 10 hours MAIA 5 5:16 PM [facility] ([facility]) [facility] Special Stains Because some lobular [...] positive=1-10% positive nuclei, Positive >10% positive nuclei WI: Staining evaluation WI: Positive= >1% positive nuclei. HER2: Staining evaluation [...] ER clone SP1 Cell Jose De Jesus, WI clone 16 Leica Analyte specific reagents: HER2 clone [id number] Biocare 5 5:16 PM EDT [facility] ([facility] Disclaimer NOTE: The immunohistochemical tests and in situ hybridization tests were developed and their performance characteristics were determined by [facility]. They have not been cleared [...] fixed and paraffin embedded. 5:16 PM EDT [facility] Tissue Right breast structure / Unknown 09/23/2024 10:50 AM EDT 09/23/2024 11:38 AM EDT Tissue specimen (specimen) Right breast structure / Unknown 09/23/2024 10:50 AM EDT 09/23/2024 11:38 AM EDT us Christos Warner MD LAB PATHOLOGY ORDERABLES Edit ed Result - Final Performing Organization Address City/[facility]/ZIP Co de Phone Number [facility]) [facility] [address] [place] [address], * HER-2 ALLAN, FISH (09/23/2024 10:50 AM EDT) Scan Result See Scanned Result 10/06/2024 9:55 PM EDT EXTERNAL LAB (NON-INTERFAC ED) Tissue Right breast structure / Unknown 09/23/2024 10:50 AM EDT 09/28/2024 9:40 AM EDT us Christos Warner MD LAB CYTOGENETICS ORDERABLES F inal Result EXTERNAL LAB (NON-INTERFACED) from Last 3 Months Insurance [facility] [employer] Member Subscriber Plan / Payer (Ef fective 2016-Present) Name:TORRIE BRUSH Relation to Subscriber:Self Name:Torrie Brush Payer ID:[id number] Group ID:[id number] Type:Not on file Address: [place] [address] [address] [phone] Care Teams College Football Coach Relationship Specialty Start Date End Date Juan R Bey MD [address] [place] [phone] PCP - General Internal Medicine 09/03/24
--- OUTSIDE RECORDS SUMMARY | 2024-11-17 15:09 | XMS_ITS | Encounter Summary ---
Author Organization [facility] Address [address] [place] [address] Care Team Providers Care Cheesemaker Helper Name Role Phone Juan R Blount MD Primary Care Provide r Reason for Visit * Reason Comments Med Refill Encounter Details Date Type Department Care Team ([facility] st Contact Info) Description 04/16/2024 Refill [facility] [address] [place] [address] Aggie Melendez MD [address] [place] [address] Primary insomnia Social History Tobacco Use Types [...] Description 12/23/2024 1:15 PM EDT Office Visit [facility] [address] [place] [address] Juan R Blount MD [address] [place] [address] documented as of this encounter Visit Diagnoses Diagnosis Primary insomnia Persistent disorder of initiating or maintaining sleep documented in this encounter Additional Health Concerns Assessment Noted Time PHQ-9 Depression Total Score: 3 01/15/20 24 1:38 PM EDT documented as of this encounter Care Teams Cheesemaker Helper Relationship Specialty Start Date End Date Juan R Blount MD [address] [place] [address] PCP - General Internal Medicine 12/09/13 [facility] Endocrin[facility] 08/23/24 documented as of this encounter
--- OUTSIDE RECORDS SUMMARY | 2024-11-17 15:09 | XMS_ITS | Patient Health Record ---
Author Organization [facility] Address [address] [place] [address] Care Team Providers Care Sales Representative Canvas Products Name Role Phone Angelito Vega MD, Juan R Primary Care Provide r Caden Berry [phone] Reason For Referral No Information Encounters Encounter Location Date Provider Diagnosis [facility] [address] [place] [address] 05/24/2024 Caden Huffman Plan Of Treatment No Information Insurance Providers Payer Name Payer Address Payer Phone Subscriber Number Group Number Insured Name Patient Relationship to Insured Coverage Start Date Coverage End Date [facility] [address] [place] [address] [id number] MERCEDES BRUSH Self - patient is the insured
== END ==
LOC: HO.CARD 14:27
PROVIDERS: PCP Internal Medicine; Visit Provider Internal Medicine
DX: Z01.810 Encounter for preprocedural cardiovascular examination (principal); I35.0 Nonrheumatic aortic (valve) stenosis
CPT/HCPCS: 93306

== ENCOUNTER → 2024-11-17 14:38 | Outpatient (BNV) | payer OTHER, SELFPAY | PROVIDERS: PCP Internal Medicine; Visit Provider Internal Medicine Cardiovascular Disease | DX: I35.2 Nonrheumatic aortic (valve) stenosis with insufficiency (principal); I34.81 Nonrheumatic mitral (valve) annulus calcification | CPT/HCPCS: 93306 ==

== ENCOUNTER 2024-11-24 13:41 | Outpatient (AMB) | payer OTHER, SELFPAY ==
[2024-11-24 13:47] VITALS: BP 102/58; PULSE 115; O2SAT 94
--- NOTE | 2024-11-24 13:47 | A.OFFVIS_ITS ---
Vital Signs 3 11/24/24 13:47 Height 5 ft 6 in BMI Reason not done Patient refused/unable BP 102/58 L Blood Pressure Location Rt brachial Position Sitting Pulse 115 H Pulse Source Pulse Oximeter Pulse Oximetry (%) 94 Oxygen Delivery Method Room Air Intake Visit Reasons: Biopsy f/u Intake Note: Patient present today for Thyroid Biopsy Results. L Editor In Chief Required: Yes Editor In Chief Language: Trimmer Tailer Services: Editor In Chief Offered & Declined Accompanied by: Other Relationship Allergies insulin detemir Allergy (Intermediate, Verified 11/24/24 13:49) Rash penicillin V Allergy (Intermediate, Verified 11/24/24 13:49) Rash acetaminophen (From Tylenol) Allergy (Mild, Verified 11/24/24 13:49) ITCH,RASH iodine (Iodine) Allergy (Mild, Verified 11/24/24 13:49) HIVES trimerosal Allergy (Intermediate, Uncoded 11/24/24 13:49) rash Latex Gloves Allergy (Mild, Uncoded 11/24/24 13:49) Rash METAL Allergy (Mild, Uncoded 11/24/24 13:49) HIVES HPI Comments Details: 69-year-old female coming in today for follow up of solitary left-sided thyroid nodule. She already follows in our practice for type 2 diabetes mellitus with [place] [facility]. This was not addressed today. Here today with daughter Padmini. In Dec 2023, presented with arm weakness , carotid doppler was done which picked Incidentally noted left nodule isoechoic to the thyroid measuring 3.1 x 2.8 x 3.0 cm . Ultrasound of the thyroid 08/18/2024, I reviewed the images myself which showed a large left solitary 3.3 cm solid isoechoic TR 3 category nodule. While this is quite low risk appearing with a 5-10% risk of malignancy, based on size would proceed with FNA. Normal TSH from January 2024 at 2.42. Patient currently denies heat or cold intolerance, diarrhea or constipation, hair loss, anxiety, weight changes, mood changes, low energy, changes in appearance of eyes or vision changes, tremors, increased diaphoresis or dry skin. ? Reports intermittent palpitations. Patient denies any difficulty swallowing, pain on swallowing or voice changes or difficulty breathing. Patient denies any history of childhood neck radiation. Denies having ever used lithium, amiodarone or biotin supplements. Patient denies any family history of thyroid cancer or thyroid disease. Smokes 5 cigarettes per day , smoking for a long time Also notable diagnosed with right invasive ductal breast cancer pending cardiology evaluation for clearance for lumpectomy. Interval history 11/10/2024: Status post FNA of the left mid lower 3.3 cm nodule which came back as nondiagnostic with a very rare follicular cells seen in the sample, Lewis category 1. Physical exam General: sitting comfortably in no acute distress HEENT: normocephalic/atraumatic, Neck: supple, palpable left sided 2 cm nodule Cardiac: normal heart sounds Pulm: normal breath sounds B/L, no added breath sounds Abd: not distended, no tenderness Extremities: no edema, no signs of myxedema Laboratory Tests 02/03/24 11:37 TSH 2.42 Laboratory Tests 10/18/24 14:56 TSH 2.14 Free T4 0.96 EXAMINATION: US THYROID 08/18/24 HISTORY: nontoxic single rt 3.1 cm thyroid nodule TECHNIQUE: Real-time grayscale ultrasound imaging was performed and images were reviewed. COMPARISON: There are no prior studies for comparison. FINDINGS: SIZE: The right thyroid lobe measures 4.6 x 1.5 x 1.4 cm. The left thyroid lobe measures 4.6 x 2.8 x 3.2 cm. The isthmus measures 1 mm. FLOW: Flow to the gland is normal. ECHOGENICITY: The echotexture of the gland is homogeneous. NODULES: There is a left-sided nodule with imaging characteristics as follows: Nodule #: 1 Location: Left mid to lower pole measuring 3.3 x 2.7 x 3.2 cm. Shape: Wider than tall (0 points) Margins: Smooth (0 points) Echotexture: Isoechoic (1 point) Composition: Solid (2 points) Calcifications: None (0 points) Total points: 3 TIRADS: TR3: Mildly suspicious. US/US thyroid IMPRESSION: Solitary 3.3 x 2.7 x 3.2 cm left thyroid nodule. According to ACR TI-RADS guidelines below, ultrasound-guided fine-needle aspiration is recommended. [facility] Medical History (Updated 10/20/24 @ 11:35 by David Sarmiento MD) Invasive ductal carcinoma of right breast in female CVA (cerebral vascular accident) Osteopenia Screening examination for infectious disease Insulin dependent type 2 diabetes mellitus Elevated C-reactive protein Elevated sed rate Myalgia, upper arm Knee instability Back pain at L4-L5 level Knee pain, right Knee pain, left UTI (urinary tract infection) Proteinuria Hyperlipidemia Lumbar spondylosis Fibromyalgia Syncope COPD (chronic obstructive pulmonary disease) Depression Asthma Type 2 diabetes mellitus with hyperglycemia, with long-term current use of insulin Type 2 diabetes mellitus with chronic kidney disease Chronic kidney disease, stage 3 unspecified Type 2 diabetes mellitus with diabetic polyneuropathy Essential hypertension Surgical History (Updated 11/24/24 @ 13:54 by BALJEET Rincon) Hx of ultrasound guided needle biopsy Hx of mammogram Hx of colonoscopy Hx of oral surgery Hx of tubal ligation Family History Father No problems noted. Mother Heart disease CVD (cardiovascular disease) Diabetes Social History Household Members: Family Housing: Apartment Do you presently have visiting nurse or other home services: No Alcohol intake: never Patient Tobacco Use Status: Current everyday Tobacco user Tobacco use type: Cigarette Cigarette Packs Per Day: 0.5 Cigarettes Per Day: 10.0 Female Reproductive History Menstrual Age of Menarche: 11 Physical Exam Vital Signs: Last Vital Signs Pulse 115 H 11/24/24 13:47 BP 102/58 L 11/24/24 13:47 Pulse Ox 94 11/24/24 13:47 Oxygen Delivery Method Room Air 11/24/24 13:47 Assessment & Plan Assessment & Plan (1) Thyroid nodule: Code(s): E04.1 - Nontoxic single thyroid nodule Category: Medical Plan: 69-year-old female with no family history of thyroid cancer with no personal history of head or neck radiation coming in today for initial evaluation with me for solitary left-sided thyroid nodule. She has been seen by Amisha Sutton family medicine PA for type 2 diabetes mellitus in our practice. Ultrasound of the thyroid 08/18/2024, I reviewed the images myself which showed a large left solitary 3.3 cm solid isoechoic TR 3 category nodule. While this is quite low risk appearing with a 5-10% risk of malignancy, based on size would proceed with FNA. 11/10/2024: Status post FNA of the left mid lower 3.3 cm nodule which came back as nondiagnostic with a very rare follicular cells seen in the sample, Lewis category 1. I discussed with the patient that nondiagnostic results yield a 5- 20% risk of malignancy. At this point we will plan to repeat the biopsy in about 3 months. We will arrange for repeat FNA left mid lower 3.3 cm thyroid nodule in 3 months and patient will follow up with me in clinic thereafter for results and further decision making. Plan: -scheduled for repeat FNA of the left mid lower 3.3 cm thyroid nodule in 3 months and a follow up 2 weeks after to discuss results Plan see above Orders: Orders 2 US biopsy thyroid Today E04.1 - Nontoxic single thyroid nodule Coding Level of Care Code Est Pt Level 3 (80070) Diagnoses Thyroid nodule E04.1
--- OUTSIDE RECORDS SUMMARY | 2024-11-24 14:08 | XMS_ITS | Encounter Summary ---
Author Organization [facility] Address [address] [facility] [address] [place] [address] Care Team Providers Care Due Diligence Coordinator Name Role Phone Juan R Blount MD Primary Care Provide r Reason for Visit * Reason Comments Med Refill Encounter Details Date Type Department Care Team ([facility] st Contact Info) Description 04/16/2024 Refill [facility] [address] [place] [address] Aggie Melendez MD [address] [place] [address] Primary insomnia Social History Tobacco Use Types [...] Description 12/23/2024 1:15 PM EDT Office Visit [facility] [address] [place] [address] Juan R Blount MD [address] [place] [address] documented as of this encounter Visit Diagnoses Diagnosis Primary insomnia Persistent disorder of initiating or maintaining sleep documented in this encounter Additional Health Concerns Assessment Noted Time PHQ-9 Depression Total Score: 3 01/15/20 24 1:38 PM EDT documented as of this encounter Care Teams Due Diligence Coordinator Relationship Specialty Start Date End Date Juan R Blount MD [address] [place] [address] PCP - General Internal Medicine 12/09/13 Sh[facility] Sutton Endocrinology 08/23/24 documented as of this encounter
--- OUTSIDE RECORDS SUMMARY | 2024-11-24 14:08 | XMS_ITS | Clinical Summary ---
Author Organization [facility] Address [address] [place] [address] Phone Care Team Providers Care Employee Communications Coordinator Name Role Phone Juan R Eaton MD [...] this topic Insurance Commonwealth Commonwealth Care Teams Employee Communications Coordinator Relationship Specialty Start Date End Date Juan R Eaton MD PCP - General Internal Medicine 08/23/20
--- OUTSIDE RECORDS SUMMARY | 2024-11-24 14:08 | XMS_ITS | Clinical Summary ---
Author Organization [facility] Address [address] [place] [phone] Phone Care Team Providers Care Court Recorder Name Role Phone Juan R Bey MD Primary Care Provi nalini Encounters Date Type Department Care Team Description 09/27/2024 [facility]phone [facility] at [address] [phone] Shaan Calderón 09/23/2024 10:01 AM EDT - 09/23/2024 11:59 PM EDT Hospital Encounter [facility] [address] [phone] Other abnormal and inconclusive findings on diagnostic imaging of breast Discharge Disposition: Home or Self Care 09/23/2024 9:56 AM EDT - 09/23/2024 11:59 PM EDT [facility] at [address] [phone] Other abnormal and inconclusive findings on diagnostic [...] this topic Medical Devices Implanted Type Area Wireless Operator Device Identifier Shelf Expiration Date Model / Serial / Lot Marker Breast Biopsy 10g Flexible Ti Open Coil Hydromark - [id number] Implanted:Qty: 1 on 09/23/2024 by Christos Warner MD at [facility] Imaging Implants Right: Breast DEVICOR [employer] [id number] 03/10/2027 4010-05- 10-T3 / / [id number] Procedures Procedure Name Priority Date/Time Associated [...] Signed Date: 09/27/2024 14:26 ET Workstation ID: [id number] Transcribed By: Self Edit Transcribed Date: 09/27/2024 [...] Pathology pending for the right breast. Location: [address], [address] -------- FINAL REPORT -------- Dictated By: Christos Warner Dictated Date: 09/23/2024 13:54 ET Assigned Physician: Christos Warner Reviewed and Electronically Signed By: Christos Warner Signed Date: 09/23/2024 15:10 ET Workstation ID: [id number] Transcribed By: Self Edit Transcribed Date: 09/23/2024 [...] ? Greatest length of carcinoma: 14 mm [place] score: Grade 1 Glandular/tubular morphology: 2 Nuclear [...] Signed Date: 09/27/2024 14:26 ET Workstation ID: [id number] Transcribed By: Self Edit Transcribed Date: 09/27/2024 [...] Pathology pending for the right breast. Location: [address], [address] -------- FINAL REPORT -------- Dictated By: Christos Warner Dictated Date: 09/23/2024 13:54 ET Assigned Physician: Christos Warner Reviewed and Electronically Signed By: Christos Warner Signed Date: 09/23/2024 15:10 ET Workstation ID: [id number] Transcribed By: Self Edit Transcribed Date: 09/23/2024 [...] Addendum This case was sent t o [facility], [address], [place], [place], (CLIA #[id number]) for HER2 Breast studies. Their diagnosis is [...] report on file) 5 5:16 PM EDT [facility] Addendum electronically signed by [...] invasion: Not identified 5 5:16 PM EDT [facility] Comment Dr. Garcia provided second review for new malignancy. Dr. Warner notified via secure chat on 09/27/24. 5 [facility] Clinical Information Abnormal mammogram, 1.0 [...] of radiation/chemotherap y: No 5 5:16 PM [facility] Gross Description A. Breast, Right, [...] hours): 10 hours MAIA 5 5:16 PM [facility] Special Stains Because some [...] positive=1-10% positive nuclei, Positive >10% positive nuclei [place]: Staining evaluation [place]: Positive= >1% positive nuclei. HER2: Staining evaluation [...] ER clone SP1 Cell Jose De Jesus, [place] clone 16 Leica Analyte specific reagents: HER2 clone EP3 Biocare 5 5:[address] [facility] Disclaimer NOTE: The immunohistochemical tests and in situ hybridization tests were developed and their performance characteristics were determined by [facility]. They have not been [...] fixed and paraffin embedded. 5:16 PM EDT [facility] Tissue Right breast structure / Unknown 09/23/2024 10:50 AM EDT 09/23/2024 11:38 AM EDT Tissue specimen (specimen) Right breast structure / Unknown 09/23/2024 10:50 AM EDT 09/23/2024 11:38 AM EDT us Christos Warner MD LAB PATHOLOGY ORDERABLES Edit ed Result - Final Performing Organization Address City/[facility]/ZIP Co de Phone Number [facility]) [facility] [address] [place] [address], * HER-2 ALLAN, FISH (09/23/2024 10:50 AM EDT) Scan Result See Scanned Result 10/06/2024 9:55 PM EDT EXTERNAL LAB (NON-INTERFAC ED) Tissue Right breast structure / Unknown 09/23/2024 10:50 AM EDT 09/28/2024 9:40 AM EDT us Christos Warner MD LAB CYTOGENETICS ORDERABLES F inal Result EXTERNAL LAB (NON-INTERFACED) from Last 3 Months Insurance [facility] MEDICARE Member Subscriber Plan / Payer (Ef fective 2016-Present) Name:TORRIE BRUSH Relation to Subscriber:Self Name:Torrie Brush Payer ID:[id number] Group ID:[id number] Type:Not on file Address: [place] [address] [address] [address] Recorder Relationship Specialty Start Date End Date Juan R Bey MD [address] [place] [phone] PCP - General Internal Medicine 09/03/24
--- OUTSIDE RECORDS SUMMARY | 2024-11-24 14:09 | XMS_ITS | Patient Health Record ---
Author Organization [facility] Address [address] [place] [address] Care Team Providers Care Senior Developer Name Role Phone Angelito Vega MD, Juan R Primary Care Provide r Caden Berry [phone] Reason For Referral No Information Encounters Encounter Location Date Provider Diagnosis [facility] [address] [place] [address] 05/24/2024 Caden Huffman Plan Of Treatment No Information Insurance Providers Payer Name Payer Address Payer Phone Subscriber Number Group Number Insured Name Patient Relationship to Insured Coverage Start Date Coverage End Date [facility] [address] [place] [address] [id number] MERCEDES BRUSH Self - patient is the insured
== END 2024-11-24 14:32 | disposition home or self-care (01) ==
LOC: HO.ENCR 13:41
PROVIDERS: PCP Internal Medicine; Visit Provider Student in an Organized Health Care Education/Training Program
DX: E04.1 Nontoxic single thyroid nodule (principal)
CPT/HCPCS: 99213

== ENCOUNTER → 2024-11-24 13:41 | Outpatient (BNVA) | payer OTHER, SELFPAY | PROVIDERS: PCP Internal Medicine; Visit Provider Student in an Organized Health Care Education/Training Program | DX: E04.1 Nontoxic single thyroid nodule (principal); C50.911 Malignant neoplasm of unspecified site of right female breast | CPT/HCPCS: 99212 ==

== ENCOUNTER → 2024-11-25 09:05 | Outpatient (REF) | payer OTHER, SELFPAY ==
--- NOTE | ~2024-11-25 | NM_ITS ---
Lexiscan Myocardial perfusion study Indication: Abnormal EKG Technique: The patient was brought in for a Lexiscan perfusion study on 11/25/2024 and was injected 0.4 mg of Lexiscan intravenously. Within a minute of this injection 30 mCi of sestamibi was given intravenously. Images were obtained using the SPECT gamma camera interlaced with the gating device. Images were obtained in supine position. Resting perfusion study was performed on 11/26/2024. Patient was administered 30 mCi of sestamibi intravenously at rest. Images were then obtained in supine position. Total DLP 120 mGy-cm. Images were processed with the software and compared side to side in short axis, horizontal long axis and vertical long axis views. Findings: Raw aquisition reviewed. The stress perfusion study showed no significant perfusion abnormality. Both uncorrected as well as CT attenuation corrected images were reviewed. The gated study shows normal LV systolic function with calculated LVEF of 65%. LV cavity is normal in size. The gated study shows normal wall thickening and contraction of segments. Resting study shows no significant perfusion abnormality. Gating at rest reveals normal wall motion with ejection fraction at 69%. The findings are consistent with no clear reversible or fixed perfusion abnormality. NM/NM cardiolite stress test Impression: 1. Myocardial perfusion imaging study shows normal myocardial perfusion. 2. Gated LVEF is 65% during stress and 69% during rest. 3. Transient ischemic dilatation not present. EKG component of the test reported separately. Electronically signed by: David Sarmiento MD 11/28/2024 09:15 AM EDT
--- NOTE | 2024-11-25 09:09 | CA_ITS ---
Acquisition Time: 2024-11-25 09:45:52 Total Exercise Time: 00:02:00 Test Indications: ABN EKG Medications: SEE EMAR Protocol: LEXISCAN Max HR: 102 BPM 67% of Pred: 151 BPM Max BP: 126/60 mmHG Max Work Load: 1.0 METS Pharmacologcial stress test with Lexiscan while pt moves her arms, with reports of SOB and 10/10 mid chest pressure, without any arrythmias, with normotensive response to injection. Nondiagnostic EKG for ischemia. In recovery, pt treated with IVP Aminophylline 75 mg to reverse Lexiscan after which pt feeling back to baselin. CP resolved. Nuclear images pending. Test reviewed with Dr. Sarmiento. Referred By: David Sarmiento Electronically Signed By: River Carson
--- OUTSIDE RECORDS SUMMARY | 2024-11-25 09:28 | XMS_ITS | Clinical Summary ---
Author Organization [facility] Address [address] [place] [address] Phone Care Team Providers Care Gardening Manager Name Role Phone Juan R Eaton MD [...] this topic Insurance Commonwealth Commonwealth Care Teams Gardening Manager Relationship Specialty Start Date End Date Juan R Eaton MD PCP - General Internal Medicine 08/23/20
--- OUTSIDE RECORDS SUMMARY | 2024-11-25 09:28 | XMS_ITS | Clinical Summary ---
Author Organization [facility] Address [address] [place] [phone] Phone Care Team Providers Care Stick Roller Name Role Phone Juan R Bey MD Primary Care Provi nalini Encounters Date Type Department Care Team Description 09/27/2024 Telephone [facility] [address] [phone] Shaan Calderón 09/23/2024 10:01 AM EDT - 09/23/2024 11:59 PM EDT Hospital [facility]counter [facility] at [address] [phone] Other abnormal and inconclusive findings on diagnostic imaging of breast Discharge Disposition: Home or Self Care 09/23/2024 9:56 AM EDT - 09/23/2024 11:59 PM EDT [facility] [address] [phone] Other abnormal and inconclusive findings on diagnostic [...] this topic Medical Devices Implanted Type Area Forest Patrolman Device Identifier Shelf Expiration Date Model / Serial / Lot Marker Breast Biopsy 10g Flexible Ti Open Coil Hydromark - [id number] Implanted:Qty: 1 on 09/23/2024 by Christos Warner MD at [facility] Imaging Implants Right: Breast DEVICOR [employer] [id number] 03/10/2027 4010-05- 10-T3 / / [id number] Procedures Procedure Name Priority Date/Time Associated [...] Signed Date: 09/27/2024 14:26 ET Workstation ID: [id number] Transcribed By: Self Edit Transcribed Date: 09/27/2024 [...] Pathology pending for the right breast. Location: [address], [address] -------- FINAL REPORT -------- Dictated By: Christos Warner Dictated Date: 09/23/2024 13:54 ET Assigned Physician: Christos Warner Reviewed and Electronically Signed By: Christos Warner Signed Date: 09/23/2024 15:10 ET Workstation ID: [id number] Transcribed By: Self Edit Transcribed Date: 09/23/2024 [...] ? Greatest length of carcinoma: 14 mm [place] score: Grade 1 Glandular/tubular morphology: 2 Nuclear [...] Signed Date: 09/27/2024 14:26 ET Workstation ID: [id number] Transcribed By: Self Edit Transcribed Date: 09/27/2024 [...] Pathology pending for the right breast. Location: [address], [address] -------- FINAL REPORT -------- Dictated By: Christos Warner Dictated Date: 09/23/2024 13:54 ET Assigned Physician: Christos Warner Reviewed and Electronically Signed By: Christos Warner Signed Date: 09/23/2024 15:10 ET Workstation ID: [id number] Transcribed By: Self Edit Transcribed Date: 09/23/2024 [...] Addendum This case was sent t o [facility], [address], [place], [place], (CLIA #[id number]) for HER2 Breast studies. Their diagnosis is [...] report on file) 5 5:16 PM EDT [facility] Addendum electronically signed by Dulce [...] invasion: Not identified 5 5:16 PM EDT [facility] Comment Dr. Garcia provided second [...] of radiation/chemotherap y: No 5 5:16 PM [facility] Gross Description A. Breast, Right, [...] hours): 10 hours MAIA 5 5:16 PM [facility] Special Stains Because some lobular [...] positive=1-10% positive nuclei, Positive >10% positive nuclei [place]: Staining evaluation [place]: Positive= >1% positive nuclei. HER2: Staining evaluation [...] ER clone SP1 Cell Jose De Jesus, [place] clone 16 Leica Analyte specific reagents: HER2 clone EP3 Biocare 5 5:16 PM EDT [facility] Disclaimer NOTE: The immunohistochemical tests and in situ hybridization tests were developed and their performance characteristics were determined by [facility]. They have not [...] fixed and paraffin embedded. 5:16 PM EDT [facility] Tissue Right breast structure / Unknown 09/23/2024 10:50 AM EDT 09/23/2024 11:38 AM EDT Tissue specimen (specimen) Right breast structure / Unknown 09/23/2024 10:50 AM EDT 09/23/2024 11:38 AM EDT us Christos Warner MD LAB PATHOLOGY ORDERABLES Edit ed Result - Final Performing Organization Address City/[facility]/ZIP Co de Phone Number [facility] [address] [place] [address], * HER-2 ALLAN, FISH (09/23/2024 10:50 AM EDT) Scan Result See Scanned Result 10/06/2024 9:55 PM EDT EXTERNAL LAB (NON-INTERFAC ED) Tissue Right breast structure / Unknown 09/23/2024 10:50 AM EDT 09/28/2024 9:40 AM EDT us Christos Warner MD LAB CYTOGENETICS ORDERABLES F inal Result EXTERNAL LAB (NON-INTERFACED) from Last 3 Months Insurance [facility] MEDICARE Member Subscriber Plan / Payer (Ef fective 2016-Present) Name:TORRIE BRUSH Relation to Subscriber:Self Name:Torrie Brush Payer ID:[id number] Group ID:[id number] Type:Not on file Address: [place] [address] [address] [phone] Care Teams Stick Roller Relationship Specialty Start Date End Date Juan R Bey MD [address] [place] [id number] PCP - General Internal Medicine 09/03/24
--- OUTSIDE RECORDS SUMMARY | 2024-11-25 09:28 | XMS_ITS | Encounter Summary ---
Author Organization [employer] Address [address] [facility] [address] [place] [address] Care Team Providers Care Returned Goods Repairer Name Role Phone Juan R Bolunt MD Primary Care Provide r Reason for Visit * Reason Comments Med Refill Encounter Details Date Type Department Care Team ([facility] st Contact Info) Description 04/16/2024 Refill [facility]S [address] [place] [address] Aggie Melendez MD [address] [place] [address] Primary insomnia Social History Tobacco Use Types [...] Description 12/23/2024 1:15 PM EDT Office Visit [facility] [address] [place] [address] Juan R Blount MD [address] [place] [address] documented as of this encounter Visit Diagnoses Diagnosis Primary insomnia Persistent disorder of initiating or maintaining sleep documented in this encounter Additional Health Concerns Assessment Noted Time PHQ-9 Depression Total Score: 3 01/15/20 24 1:38 PM EDT documented as of this encounter Care Teams Returned Goods Repairer Relationship Specialty Start Date End Date Juan R Blount MD [address] [place] [address] PCP - General Internal Medicine 12/09/13 Shasta Sutton Endocrinology 08/23/24 documented as of this encounter
--- OUTSIDE RECORDS SUMMARY | 2024-11-25 09:29 | XMS_ITS | Patient Health Record ---
Author Organization [facility] Address [address] [place] [address] Care Team Providers Care Team Leader Surgery Name Role Phone Angelito Vega MD, Juan R Primary Care Provide r Caden Berry [phone] Reason For Referral No Information Encounters Encounter Location Date Provider Diagnosis [facility] [address] [place] [address] 05/24/2024 Caden Huffman Plan Of Treatment No Information Insurance Providers Payer Name Payer Address Payer Phone Subscriber Number Group Number Insured Name Patient Relationship to Insured Coverage Start Date Coverage End Date [facility] [address] [place] [address] [id number] MERCEDES BRUSH Self - patient is the insured
== END ==
LOC: HO.CARD 09:05
PROVIDERS: PCP Internal Medicine; Visit Provider Internal Medicine
DX: Z01.810 Encounter for preprocedural cardiovascular examination (principal); R07.2 Precordial pain
CPT/HCPCS: 78452; 93017; A9500; J0280; J2785

== ENCOUNTER → 2024-11-25 09:09 | Outpatient (BNV) | payer OTHER, SELFPAY | PROVIDERS: PCP Internal Medicine | DX: R06.02 Shortness of breath (principal) | CPT/HCPCS: 78452; 93016; 93018 ==

== ENCOUNTER 2024-12-14 10:29 | Outpatient (AMB) | payer OTHER, SELFPAY ==
--- NOTE | 2024-12-14 10:49 | A.OFFVIS_ITS ---
Vital Signs 12/14/24 10:51 Height 5 ft 6 in Weight 163 lb 2.273 oz BMI 26.3 BP 124/46 L Blood Pressure Location Rt brachial Position Sitting Pulse 100 Pulse Source Pulse Oximeter Pulse Oximetry (%) 96 Oxygen Delivery Method Room Air Intake Visit Reasons: T2DM Intake Note: Patient present today to follow up on Type 2 Diabetes Mellitus. Patient receives Crystal 3 supplies through: [facility] Last Diabetic Eye exam: 2023 and still has to make appt for this year Last Podiatry Visit: Does not see a Warehouse Attendant Random Glucose: 213 mg/dl Most Recent HgA1C: 7.7% Correctional Counselor/Case Manager Required: No Accompanied by: Daughter Allergies insulin detemir Allergy (Intermediate, Verified 12/14/24 10:57) Rash penicillin V Allergy (Intermediate, Verified 12/14/24 10:57) Rash acetaminophen (From Tylenol) Allergy (Mild, Verified 12/14/24 10:57) ITCH,RASH iodine (Iodine) Allergy (Mild, Verified 12/14/24 10:57) HIVES trimerosal Allergy (Intermediate, Uncoded 12/14/24 10:57) rash Latex Gloves Allergy (Mild, Uncoded 12/14/24 10:57) Rash METAL Allergy (Mild, Uncoded 12/14/24 10:57) HIVES Medication List - Last Reconciled 12/14/24 by MAYELA Pond albuterol sulfate 90 mcg/actuation 2 puffs inhalation Q6H PRN amlodipine 5 mg PO BEDTIME aspirin 81 mg PO DAILY atenolol 12.5 mg PO BID atorvastatin 40 mg PO BEDTIME blood sugar diagnostic (FreeStyle Lite Strips) four times a day blood-glucose meter (FreeStyle Lite Meter kit) As directed blood-glucose sensor (FreeStyle Crystal 3 Sensor device) apply new sensor every 14 days blood-glucose,heat treat operator,cont (FreeStyle Crystal 3 [place]) Use daily to monitor blood glucose levels continuously. [Cane As directed] cyanocobalamin (vitamin B-12) 1,000 mcg PO DAILY docusate sodium 100 mg PO BEDTIME dulaglutide (Trulicity) 4.5 mg subcut MO@0900 fluticasone propion-salmeterol 500-50 mcg/dose (Advair Diskus) 1 inh inhalation BID gabapentin 800 mg PO TID glucose (Dex4 Glucose Quick Dissolve) 16 grams (4 x 4 gram) PO Q15M PRN insulin aspart U-100 (Novolog FlexPen U-100 Insulin aspart) subcutaneously 3 times a day before meals; administer 17 units before breakfast and dinner and 20 units before lunch. insulin degludec (Tresiba FlexTouch U-200 insulin) 52 units (0.26 mL) subcut BEDTIME 30 days insulin syringe-needle U-100 As directed lancets (FreeStyle Lancets) four times a day lidocaine 5% 1 appl topical BID PRN losartan 100 mg PO DAILY montelukast (Singulair) 10 mg PO BEDTIME nicotine 21 mg transdermal DAILY pen needle, diabetic (BD Ultra-Fine Janene Pen Needle) As directed four times a day pioglitazone 15 mg PO QAM tramadol 50 mg PO TID 90 days umeclidinium 62.5 mcg/actuation (Incruse Ellipta) 1 inh inhalation DAILY zolpidem 10 mg PO BEDTIME PRN HPI Comments Details: This is a 69-year-old female with a past medical history of hypertension, type 2 diabetes, depression, fibromyalgia, moderate persistent asthma, tobacco use, obesity, right thyroid nodule, pulmonary nodules, overactive bladder, recurrent UTI and hyperlipidemia presenting for diabetic management. She is here with her daughter, Kimberly. She was diagnosed around 1996 with type 2 diabetes. Hemoglobin A1c 7.7% today up from 7%. I reviewed CGM data for the past 14 days GMI 7.9% Glucose variability 27.5% Very high 12% High 38% Target range 50% Low 0% She has postprandial hyperglycemia in the afternoon. She endorses low sugars puncher and fastener. Reports blood sugar was 48 around 6 am this morning. Corrected with glucose tablets and toast. Rufe weak. She has been under a lot of stress and noticed hyperglycemia when she is emotional. Current regimen: Trulicity 4.5 mg weekly, Actos 15 mg, Tresiba U 200 60 units at bedtime and NovoLog 17 units TID before meals. Past medications: Metformin previously discontinued due to worsening renal function. She took glipizide and does not recall why it was discontinued. Compliance issues: none Hyperglycemia symptoms: fatigue Eye exam: [facility] - glaucoma Microvascular complications: neuropathy, nephropathy (microalbuminuria per previous notes and CKD stage 3 per problem list) Macrovascular complications: question of prior TIA The patient is followed by Dr. Quintanilla for a thyroid nodule. Status post FNA of the left mid lower 3.3 cm nodule which came back as nondiagnostic. Repeat FNA recommended in 3 months. ROS: Constitutional: No fevers or chills or increased fatigue. No unexplained weight loss. Eyes: No blurry vision, double vision or eye pain. Cardiovascular: No chest pain Respiratory: No shortness of breath Skin: No open wounds. Endocrine: No cold or heat intolerance. No polyuria or polydipsia. Physical exam: Constitutional: Alert, in no distress. Eyes: Pupils are equal, round and reactive to light. Extraocular muscles intact. Neck: No lymphadenopathy or palpable masses. Respiratory: Clear to auscultation. Cardiovascular: S1 S2 regular. No murmurs Extremities: No edema. [facility] Medical History (Updated 10/20/24 @ 11:35 by David Sarmiento MD) Invasive ductal carcinoma of right breast in female CVA (cerebral vascular accident) Osteopenia Screening examination for infectious disease Insulin dependent type 2 diabetes mellitus Elevated C-reactive protein Elevated sed rate Myalgia, upper arm Knee instability Back pain at L4-L5 level Knee pain, right Knee pain, left UTI (urinary tract infection) Proteinuria Hyperlipidemia Lumbar spondylosis Fibromyalgia Syncope COPD (chronic obstructive pulmonary disease) Depression Asthma Type 2 diabetes mellitus with hyperglycemia, with long-term current use of insulin Type 2 diabetes mellitus with chronic kidney disease Chronic kidney disease, stage 3 unspecified Type 2 diabetes mellitus with diabetic polyneuropathy Essential hypertension Surgical History Hx of ultrasound guided needle biopsy Hx of mammogram Hx of colonoscopy Hx of oral surgery Hx of tubal ligation Family History Father No problems noted. Mother Heart disease CVD (cardiovascular disease) Diabetes Social History Household Members: Family Housing: Apartment Do you presently have visiting nurse or other home services: No Alcohol intake: never Patient Tobacco Use Status: Current everyday Tobacco user Tobacco use type: Cigarette Cigarette Packs Per Day: 0.5 Cigarettes Per Day: 10.0 Female Reproductive History Menstrual Age of Menarche: 11 Physical Exam Vital Signs: Last Vital Signs Pulse 100 12/14/24 10:51 BP 124/46 L 12/14/24 10:51 Pulse Ox 96 12/14/24 10:51 Oxygen Delivery Method Room Air 12/14/24 10:51 BMI result Body Mass Index 26.3 Office Procedures Glucose Monitoring Details Details: see HPI 10329 - Glucose monitoring, continuous-physician I&R Procedure code (CPT) selection complete Results AMB Hemoglobin A1c AMB Hemoglobin A1c 7.7 % Last Edit by BALJEET Mcallister on 12/14/24 11:34 Results Reviewed Results Reviewed: Laboratory Last Values Glucose (Clinic) 213 mg/dL (60-115) H 12/14/24 11:00 Hgb A1c (Clinic) 7.7 % (4.0-6.0) H 12/14/24 11:03 Laboratory Tests 10/18/24 10/18/24 14:55 14:56 Plt Count 375 Creatinine 0.85 Estimated GFR > 60 AST 23 ALT 9 Triglycerides 186 H Cholesterol 127 LDL Cholesterol, Calc 56 HDL Cholesterol 34 L Vitamin B12 200 TSH 2.14 Urine Creatinine 136.42 Urine Microalbumin 28.0 Microalb/Creat Ratio 20.5 Assessment & Plan Assessment & Plan (1) Type 2 diabetes mellitus with diabetic polyneuropathy: Code(s): E11.42 - Type 2 diabetes mellitus with diabetic polyneuropathy Category: Medical Qualifiers: Diabetes mellitus senior living insulin use: with senior living use Qualified Code(s): E11.42 - Type 2 diabetes mellitus with diabetic polyneuropathy; Z79.4 - terminal gauger (current) use of insulin Plan: This is a 69-year-old female with suboptimally controlled type 2 diabetes with complications. Reviewed concerns about hypoglycemia. Decrease Tresiba from 60 units to 52 units nightly. Take Novolog 17 units before breakfast and dinner and take 20 units before lunch due to hyperglycemia in the afternoon. Administer 5-10 minutes prior to meals. Continue Trulicity 4.5 mg weekly. Continue Actos 15 mg daily. If you experience low blood sugar, treat this by eating a chewable fruit candy like skittles or jelly beans (about 8 pieces), 4 ounces (1/2 cup) of fruit juice (not diet), 1 tablespoon of honey or 4 glucose tablets. If your blood sugar is under 50, take double the amount of one of the above. Recheck your blood sugar in 15 minutes to ensure it rises. I will advance her to the Crystal 3+ sensor since Crystal 3 is being discontinued. (2) Thyroid nodule: Code(s): E04.1 - Nontoxic single thyroid nodule Category: Medical Plan: Followed by Dr. Quintanilla. Repeat FNA planned for January. Plan Follow up in 1 month for diabetes. Orders: Orders AMB Glucose Monitoring Today E11.9 - Type 2 diabetes mellitus without complications AMB Hemoglobin A1c Today E11.42 - Type 2 diabetes mellitus with diabetic polyneuropathy, Z13.9 - Encounter for screening, unspecified, Z79.4 - MCC (current) use of insulin Medications: Changed From insulin aspart U-100 (Novolog FlexPen U-100 Insulin aspart) 18 units subcut TIDAC To insulin aspart U-100 (Novolog FlexPen U-100 Insulin aspart) subcutaneously 3 times a day before meals; administer 17 units before breakfast and dinner and 20 units before lunch. 15 mL 5RF From insulin degludec (Tresiba FlexTouch U-200 insulin) 60 units (0.3 mL) subcut BEDTIME 30 days 9 mL 11RF To insulin degludec (Tresiba FlexTouch U-200 insulin) 52 units (0.26 mL) subcut BEDTIME 9 mL 5RF 30 days Refilled glucose (Dex4 Glucose Quick Dissolve) until symptoms of low blood sugar are controlled 16 grams (4 x 4 gram) PO Q15M PRN 30 tabs 3RF hypoglycemia Discontinued dextrose (TRUEplus Glucose) until symptoms of low blood sugar are controlled Discontinued Reason: Doctor's Order 15 grams (32 mL) PO Q15M PRN 128 mL 3RF hypoglycemia Patient Instructions: Decrease Tresiba from 60 units to 52 units nightly. Take Novolog 17 units before breakfast and dinner and take 20 units before lunch. Administer 5-10 minutes prior to meals. Continue Trulicity 4.5 mg weekly. Continue Actos 15 mg daily. If you experience low blood sugar, treat this by eating a chewable fruit candy like skittles or jelly beans (about 8 pieces), 4 ounces (1/2 cup) of fruit juice (not diet), 1 tablespoon of honey or 4 glucose tablets. If your blood sugar is under 50, take double the amount of one of the above. Recheck your blood sugar in 15 minutes. Coding Level of Care Code Est Pt Level 4 (58113) Diagnoses Type 2 diabetes mellitus with diabetic polyneuropathy, with long-term current use of insulin E11.42; Z79.4 Diabetes mellitus senior living insulin use: with terminal gauger use Thyroid nodule E04.1 CPT Codes Details - CPT: 72293 - Glucose monitoring, continuous-physician I&R ([id number])
[2024-12-14 10:51] VITALS: BP 124/46; PULSE 100; O2SAT 96; BMI 26.3
[2024-12-14 11:04] LABS: Glucose, Whole Blood 213 mg/dL (60-115)
== END 2024-12-14 11:38 | disposition home or self-care (01) ==
LOC: HO.ENCR 10:30
PROVIDERS: PCP Internal Medicine; Visit Provider Physician Assistant Medical
DX: Z13.9 Encounter for screening, unspecified (principal); E11.42 Type 2 diabetes mellitus with diabetic polyneuropathy; Z79.4 Long term (current) use of insulin; E04.1 Nontoxic single thyroid nodule

== ENCOUNTER → 2024-12-14 10:29 | Outpatient (BNVA) | payer OTHER, SELFPAY | PROVIDERS: PCP Internal Medicine; Visit Provider Physician Assistant Medical | DX: E11.42 Type 2 diabetes mellitus with diabetic polyneuropathy (principal); Z79.4 Long term (current) use of insulin | CPT/HCPCS: 82947; 83036; 99212 ==

== ENCOUNTER 2024-12-22 09:53 | Outpatient (REF) | payer OTHER, SELFPAY ==
--- OUTSIDE RECORDS SUMMARY | 2024-05-25 09:00 | XMS_ITS ---
Author Organization [facility] Address [address] [place] [phone] Care Team Providers Care Full Stack Php Developer Name Role Phone Angelito Vega MD, Juan R Primary Care Provide Caden Jordan [phone] REASON FOR VISIT Patient presents today for a COLON SCREENING Encounters Encounter Location Date Provider Diagnosis [facility] [address] [place] [phone] 05/25/2024 Caden Huffman Plan Of Treatment No Information Progress Notes * MERCEDES BRUSHDOB:[birth year] (69 yo M)Acc No.[id number]:05/25/2024 Progress Notes Patient: MERCEDES PEPE Provider: Rey Huffman MD :1955 A ge:69 Y S ex:Male Date:05/25/2024 Address:[address] [place], [place] [phone] Pcp:Juan R montalvo MD Subjective: * Chief [...] 05/25/2024 Generated for Deirdre dominguez/Bobbi/Chitraitting on: 0 12/22/2024 11:08 AM EDT
--- OUTSIDE RECORDS SUMMARY | 2024-09-28 06:10 | XMS_ITS ---
Author Organization [facility] Address [address] [place] [phone] Care Team Providers Care Sea Captain Name Role Phone Angelito Vega MD, Juan R Primary Care Provide Caden Jordan [phone] REASON FOR VISIT patient presents today for COLON SCREENING Encounters Encounter Location Date Provider Diagnosis [facility] [address] [place] [phone] 09/28/2024 Caden Huffman Plan Of Treatment No Information Progress Notes * MERCEDES BRUSHDOB:[birth year] (69 yo M)Acc No.[id number]:09/28/2024 Progress Notes Patient: MERCEDES PEPE Provider: Rey Huffman MD :1955 A ge:69 Y S ex:Male Date:09/28/2024 Address:[address] [place], [place] [phone] Pcp:Juan R montalvo MD Subjective: * Chief Complaints: * 1 . patient presents today for COLON SCREENING. * Medical History: Objective: * Vitals: Assessment: Plan: * Treatment: * * The named appointment provid er may or may not be the originator of this progress note, and it is not deemed complete until electronically signed by the appointment provider. Sign off status: Pending * Provider: Rey Huffman MD Date: 09/28/2024 Generated for Deirdre dominguez/Bobbi/Chitraitting on: 12/22/2024 11:08 AM EDT
--- OUTSIDE RECORDS SUMMARY | 2024-12-22 11:08 | XMS_ITS | Encounter Summary ---
Author Organization [employer] Address [address] [facility] 7t [place] [address] Care Team Providers Care Assembler Deck And Hull Name Role Phone Juan R Blount MD Primary Care Provide r Encounter Details Date Type Department Care Team (Late st Contact Info) Description 05/16/[address] [facility] MEDICINE [address] [place] [address] Juan R Blount MD [address] [place], [place] [phone] Social History Tobacco Use Types Packs/Day Years [...] 1:15 PM EDT Office Visit [facility] [address] [place] [address] Juan R Blount MD [address] [place] [address] documented as of this encounter Visit Diagnoses Not on filedocumented in this encounter Additional Health Concerns Assessment Noted Time PHQ-9 Depression Total Score: 8 11/20/19 23 9:41 AM EDT documented as of this encounter Care Teams Assembler Deck And Hull Relationship Specialty Start Date End Date Juan R Blount MD [address] [place] [address] PCP - General Internal Medicine 12/09/13 Shasta Sutton Endocrinology 08/23/24 documented as of this encounter
--- OUTSIDE RECORDS SUMMARY | 2024-12-22 11:08 | XMS_ITS | Encounter Summary ---
Author Organization [employer] Address [address] [facility] 7t [place] [address] Care Team Providers Care Gin Clerk Name Role Phone Juan R Blount MD Primary Care Provide r Reason for Visit * Reason Comments Med Refill Encounter Details Date Type Department Care Team ([facility] st Contact Info) Description 06/17/2024 Refill [facility] MEDICINE [address] [place] [address] Name, MD Fco [address] [place] [address] Mixed hyperlipidemia Social History Tobacco Use Types [...] Description 12/23/2024 1:15 PM EDT Office Visit [facility] MEDICINE [address] [place] [address] Juan R Blount MD [address] [place] [address] documented as of this encounter Visit Diagnoses Diagnosis Mixed hyperlipidemia documented in this encounter Additional Health Concerns Assessment Noted Time PHQ-9 Depression Total Score: 3 01/15/20 24 1:38 PM EDT documented as of this encounter Care Teams Gin Clerk Relationship Specialty Start Date End Date Juan R Blount MD [address] [place] [address] PCP - General Internal Medicine 12/09/13 Shasta Sutton Endocrinology 08/23/24 documented as of this encounter
--- OUTSIDE RECORDS SUMMARY | 2024-12-22 11:08 | XMS_ITS | Encounter Summary ---
Author Organization [employer] Address [address] [facility] 7t [place] [address] Care Team Providers Care Automobile Mechanic Motor Name Role Phone Juan R Blount MD Primary Care Provide r Reason for Visit * Reason Comments Med Refill Encounter Details Date Type Department Care Team ([facility] st Contact Info) Description 12/21/2024 Refill [facility] MEDICINE [address] [place] [address] Juan R Blount MD [address] [place] [address] Wheeze Social History Tobacco Use Types Packs/Day [...] Description 12/23/2024 1:15 PM EDT Office Visit [facility] MEDICINE [address] [place] [address] Juan R Blount MD [address] [place] [address] documented as of this encounter Visit Diagnoses Diagnosis Wheeze Wheezing documented in this encounter Additional Health Concerns Assessment Noted Time PHQ-9 Depression Total Score: 3 01/15/20 24 1:38 PM EDT documented as of this encounter Care Teams Automobile Mechanic Motor Relationship Specialty Start Date End Date Juan R Blount MD [address] [place] [address] PCP - General Internal Medicine 12/09/13 Shasta Sutton Endocrinology 08/23/24 documented as of this encounter
--- OUTSIDE RECORDS SUMMARY | 2024-12-22 11:08 | XMS_ITS | Patient Health Record ---
Author Organization [facility] Address [address] [place] [address] Care Team Providers Care Drug And Alcohol Treatment Specialist Name Role Phone Angelito Vega MD, Juan R Primary Care Provide r Caden Berry [phone] Reason For Referral No Information Encounters Encounter Location Date Provider Diagnosis [facility] [address] [place] [address] 05/24/2024 Caden Huffman Plan Of Treatment No Information Insurance Providers Payer Name Payer Address Payer Phone Subscriber Number Group Number Insured Name Patient Relationship to Insured Coverage Start Date Coverage End Date [facility] [address] [place] [address] [id number] MERCEDES BRUSH Self - patient is the insured
--- OUTSIDE RECORDS SUMMARY | 2024-12-22 11:08 | XMS_ITS | Clinical Summary ---
Author Organization [facility] Address [address] [place] [phone] Phone Care Team Providers Care Fiscal Agent Name Role Phone Juan R Bey MD Primary Care Provi nalini Encounters Date Type Department Care Team Description 09/27/2024 Telephone [facility] at [address] [phone] Shaan Calderón 09/23/2024 10:01 AM EDT - 09/23/2024 11:59 PM EDT Hospital Encounter [facility] [address] [phone] Other abnormal and inconclusive findings on diagnostic imaging of breast Discharge Disposition: Home or Self Care 09/23/2024 9:56 AM EDT - 09/23/2024 11:59 PM EDT Hospital Encounter [facility] [address] [phone] Other abnormal and inconclusive findings on diagnostic [...] - Risk 60-74 years 1-dose series) 2015 Depression Screening 04/21/2024 Cholesterol Screening (Lipid Panel) 09/03/2024 Colorectal Cancer Screening: Colonoscopy 09/03/2024 Falls Risk Assessment 09/03/2024 Hepatitis C Screening 09/03/2024 Medicare Annual Wellness Visit 09/03/2024 Osteoporosis Screening (Bone Density Screening) 09/03/2024 Social Influencers of Health Screening 09/03/2024 Diabetes: Annual Urine Albumin-Creatinine Ratio (uACR) 09/23/2024 Diabetes: Blood Sugar Control Test (HGBA1C) 09/23/2024 01/15/2024 Hypertension/CHF/CAD Annual BMP Blood Test 09/23/2024 COVID-19 Vaccine ( season) 2024 04/29/2022, 12/11/2021, 07/11/2021, Additional history exists Influenza Vaccine (#1) 2024 Breast Cancer Screening [...] this topic Medical Devices Implanted Type Area Precipitator Device Identifier Shelf Expiration Date Model / Serial / Lot Marker Breast Biopsy 10g Flexible Ti Open Coil Hydromark - [id number] Implanted:Qty: 1 on 09/23/2024 by Christos Warner MD at [facility] Implants Right: Breast DEVICOR MTailor [id number] 03/10/2027 4010-05- 10-T3 / / [id number] Procedures Procedure Name Priority Date/Time Associated [...] Signed Date: 09/27/2024 14:26 ET Workstation ID: [id number] Transcribed By: Self Edit Transcribed Date: 09/27/2024 [...] Pathology pending for the right breast. Location: [address], [address] -------- FINAL REPORT -------- Dictated By: Christos Warner Dictated Date: 09/23/2024 13:54 ET Assigned Physician: Christos Warner Reviewed and Electronically Signed By: Christos Warner Signed Date: 09/23/2024 15:10 ET Workstation ID: [id number] Transcribed By: Self Edit Transcribed Date: 09/23/2024 [...] ? Greatest length of carcinoma: 14 mm [place] score: Grade 1 Glandular/tubular morphology: 2 Nuclear [...] Signed Date: 09/27/2024 14:26 ET Workstation ID: [id number] Transcribed By: Self Edit Transcribed Date: 09/27/2024 [...] Pathology pending for the right breast. Location: [address], [address] -------- FINAL REPORT -------- Dictated By: Christos Warner Dictated Date: 09/23/2024 13:54 ET Assigned Physician: Christos Warner Reviewed and Electronically Signed By: Christos Warner Signed Date: 09/23/2024 15:10 ET Workstation ID: [id number] Transcribed By: Self Edit Transcribed Date: 09/23/2024 [...] Addendum This case was sent t o [facility], [address], [place], [place], (CLIA #[id number]) for HER2 Breast studies. Their diagnosis is [...] report on file) 5 5:[address] [facility] Addendum electronically signed by Dulce [...] invasion: Not identified 5 5:[address] [facility] Comment Dr. Garcia provided second review for new malignancy. Dr. Warner notified via secure chat on 09/27/24. [facility] Information Abnormal mammogram, 1.0 [...] of radiation/chemotherap y: No 5 5:16 PM [facility] Gross Description A. Breast, Right, irregular [...] hours): 10 hours MAIA 5 5:16 PM [facility] ([facility]) [facility] Special Stains Because some lobular [...] positive=1-10% positive nuclei, Positive >10% positive nuclei MD: Staining evaluation MD: Positive= >1% positive nuclei. HER2: Staining evaluation [...] ER clone SP1 Cell Jose De Jesus, MD clone 16 Leica Analyte specific reagents: HER2 clone [id number] [employer] 5 5:16 PM EDT [facility] ([facility]) HOSPITAL LAB Disclaimer NOTE: The immunohistochemical tests and in situ hybridization tests were developed and their performance characteristics were determined by [facility]. They have not been cleared [...] fixed and paraffin embedded. 5:[address] [facility] Tissue Right breast structure / Unknown 09/23/2024 10:50 AM EDT 09/23/2024 11:38 AM EDT Tissue specimen (specimen) Right breast structure / Unknown 09/23/2024 10:50 AM EDT 09/23/2024 11:38 AM EDT us Christos Warner MD LAB PATHOLOGY ORDERABLES Edit ed Result - Final Performing Organization Address City/[facility]/ZIP Co de Phone Number [facility]) [facility] [address] [place] [address], * HER-2 ALLAN, FISH (09/23/2024 10:50 AM EDT) Scan Result See Scanned Result 10/06/2024 9:55 PM EDT EXTERNAL LAB (NON-INTERFAC ED) Tissue Right breast structure / Unknown 09/23/2024 10:50 AM EDT 09/28/2024 9:40 AM EDT us Christos Warner MD LAB CYTOGENETICS ORDERABLES F inal Result EXTERNAL LAB (NON-INTERFACED) from Last [address] [facility] MEDICARE Member Subscriber Plan / Payer (Ef fective 2016-Present) Name:TORRIE BRUSH Relation to Subscriber:Self Name:Torrie Brush Payer ID:[id number] Group ID:[id number] Type:Not on file Address: [place] [address] [address] [phone] Care Teams Fiscal Agent Relationship Specialty Start Date End Date Juan R Bey MD [address] [place] [address] PCP - General Internal Medicine 09/03/24
--- OUTSIDE RECORDS SUMMARY | 2024-12-22 11:08 | XMS_ITS | Encounter Summary ---
Author Organization [employer] Address [address] [facility] 7t [place] [address] Care Team Providers Care Physician Office Clin Asst Name Role Phone Juan R Blount MD Primary Care Provide r Reason for Visit * Reason Comments Med Refill Encounter Details Date Type Department Care Team ([facility] st Contact Info) Description 12/17/2024 Refill [facility] MEDICINE [address] [place] [address] Juan R Blount MD [address] [place] [address] Asthma, unspecified asthma severity, unspecified whether complicated, [...] Description 12/23/2024 1:15 PM EDT Office Visit [facility] MEDICINE [address] [place] [address] Juan R Blount MD [address] [place] [address] documented as of this encounter Visit Diagnoses Diagnosis Asthma, unspecified asthma severity, unspecified whether complicated, unspecified whether persistent documented in this encounter Additional Health Concerns Assessment Noted Time PHQ-9 Depression Total Score: 3 01/15/20 24 1:38 PM EDT documented as of this encounter Care Teams Physician Office Clin Asst Relationship Specialty Start Date End Date Juan R Blount MD [address] [place] [address] PCP - General Internal Medicine 12/09/13 Shasta Sutton Endocrinology 08/23/24 documented as of this encounter
--- OUTSIDE RECORDS SUMMARY | 2024-12-22 11:08 | XMS_ITS | Encounter Summary ---
Author Organization [employer] Address 75 [facility] 7t [place] [address] Care Team Providers Care Analytic Manager Name Role Phone Juan R Blount MD Primary Care Provide r Reason for Visit * Reason Comments Med Refill Encounter Details Date Type Department Care Team (Late st Contact Info) Description 10/23/2023 Refill [facility] CHC MED & PEDS [address] [place], [place] [phone] Juan R Blount MD 230 [facility] [place], [place] [phone] Type 2 diabetes mellitus with hyperglycemia, with long-term current use of insulin ([facility]) Social History Tobacco [...] Description 12/23/2024 1:15 PM EDT Office Visit [facility] MEDICINE 230 [place] [address] Juan R Blount MD 230 [place] [address] documented as of this encounter Visit Diagnoses Diagnosis Type 2 diabetes mellitus with hyperglycemia, with long-term current use of insulin ([facility]) documented in this encounter Additional Health Concerns Assessment Noted Time PHQ-9 Depression Total Score: 8 11/20/19 23 9:41 AM EDT documented as of this encounter Care Teams Analytic Manager Relationship Specialty Start Date End Date Juan R Blount MD 230 [place] [address] PCP - General Internal Medicine 12/09/13 [facility] Endocrin[facility] 08/23/24 documented as of this encounter
--- OUTSIDE RECORDS SUMMARY | 2024-12-22 11:08 | XMS_ITS | Encounter Summary ---
Author Organization [employer] Address 75 [facility] 7t [place] [address] Care Team Providers Care Forging Operator Name Role Phone Juan R Blount MD Primary Care Provide r Reason for Visit * Reason Comments Med Refill Encounter Details Date Type Department Care Team (Late st Contact Info) Description 06/27/2023 Refill [facility] CHC MED & PEDS 505 [place] [address] Aggie Guan MD 230 [place] [address] Primary insomnia Social History Tobacco Use Types [...] Description 12/23/2024 1:15 PM EDT Office Visit [facility] MEDICINE 230 [place] [address] Juan R Blount MD 230 [place] [address] documented as of this encounter Visit Diagnoses Diagnosis Primary insomnia Persistent disorder of initiating or maintaining sleep documented in this encounter Additional Health Concerns Assessment Noted Time PHQ-9 Depression Total Score: 8 11/20/19 23 9:41 AM EDT documented as of this encounter Care Teams Forging Operator Relationship Specialty Start Date End Date Juan R Blount MD 230 [place] [address] PCP - General Internal Medicine 12/09/13 Sh[facility] Endocrinology 08/23/24 documented as of this encounter
--- OUTSIDE RECORDS SUMMARY | 2024-12-22 11:08 | XMS_ITS | Encounter Summary ---
Author Organization [employer] Address [address] [facility] 7t [place] [address] Care Team Providers Care Studio Manager Name Role Phone Juan R Blount MD Primary Care Provide r Reason for Visit * Reason Comments Med Refill Encounter Details Date Type Department Care Team (Late st Contact Info) Description 07/29/[address] [facility] CHC MED & PEDS 505 [place] [address] Aggie Guan MD 230 [place] [address] Primary insomnia Social History Tobacco Use Types [...] Description 12/23/2024 1:15 PM EDT Office Visit [facility] MEDICINE [address] [place] [address] Juan R Blount MD 230 [place] [address] documented as of this encounter Visit Diagnoses Diagnosis Primary insomnia Persistent disorder of initiating or maintaining sleep documented in this encounter Additional Health Concerns Assessment Noted Time PHQ-9 Depression Total Score: 8 11/20/19 23 9:41 AM EDT documented as of this encounter Care Teams Studio Manager Relationship Specialty Start Date End Date Juan R Blount MD 230 [place] [address] PCP - General Internal Medicine 12/09/13 Sh[facility] Endocrinology 08/23/24 documented as of this encounter
--- OUTSIDE RECORDS SUMMARY | 2024-12-22 11:08 | XMS_ITS | Clinical Summary ---
Author Organization [facility] Address [address] [place] [address] [place] [phone] Phone Care Team Providers Care Otr Truck Driver Name Role Phone Juan R Eaton MD [...] this topic Insurance [place] Care Teams Otr Truck Driver Relationship Specialty Start Date End Date Juan R Eaton MD PCP - General Internal Medicine 08/23/20
--- OUTSIDE RECORDS SUMMARY | 2024-12-22 11:08 | XMS_ITS | Encounter Summary ---
Author Organization [employer] Address 75 [facility] 7t [place] [address] Care Team Providers Care B And B Gang Worker Name Role Phone Juan R Blount MD Primary Care Provide r Reason for Visit * Reason Comments Med Refill Encounter Details Date Type Department Care Team (Late st Contact Info) Description 08/26/2024 Refill [facility] CHC MED & PEDS [address] [place], [place] [phone] Juan R Blount MD 230 [place], [place] [phone] Primary insomnia Social History Tobacco Use Types [...] 12/23/2024 1:15 PM EDT Office Visit [facility] MEDICINE 230 [place] [address] Juan R Blount MD 230 [place] [address] documented as of this encounter Visit Diagnoses Diagnosis Primary insomnia Persistent disorder of initiating or maintaining sleep documented in this encounter Additional Health Concerns Assessment Noted Time PHQ-9 Depression Total Score: 3 01/15/20 24 1:38 PM EDT documented as of this encounter Care Teams B And B Gang Worker Relationship Specialty Start Date End Date Juan R Blount MD 230 [place] [address] PCP - General Internal Medicine 12/09/13 Sh[facility] Sutton Endocrinology 08/23/24 documented as of this encounter
--- OUTSIDE RECORDS SUMMARY | 2024-12-22 11:08 | XMS_ITS | Encounter Summary ---
Author Organization [employer] Address [address] [facility] 7t [place] [address] Care Team Providers Care Quality Compliance Consultant Name Role Phone Juan R Blount MD Primary Care Provide r Reason for Visit * Reason Comments Med Refill Encounter Details Date Type Department Care Team (Late st Contact Info) Description 06/27/2023 Refill [facility] CHC MED & PEDS 505 [place] [address] Aggie Guan MD 230 [place] [address] Primary insomnia Social History Tobacco Use Types [...] 1:15 PM EDT Office Visit [facility] MEDICINE 230 [place] [address] Juan R Blount MD 230 [place] [address] documented as of this encounter Visit Diagnoses Diagnosis Primary insomnia Persistent disorder of initiating or maintaining sleep documented in this encounter Additional Health Concerns Assessment Noted Time PHQ-9 Depression Total Score: 8 11/20/19 23 9:41 AM EDT documented as of this encounter Care Teams Quality Compliance Consultant Relationship Specialty Start Date End Date Juan R Blount MD 230 [place] [address] PCP - General Internal Medicine 12/09/13 Sh[facility] Sutton Endocrinology 08/23/24 documented as of this encounter
--- OUTSIDE RECORDS SUMMARY | 2024-12-22 11:08 | XMS_ITS | Encounter Summary ---
Author Organization [employer] Address 75 [facility] 7t [place] [address] Care Team Providers Care Events Administrative Assistant Name Role Phone Juan R Blount MD Primary Care Provide r Reason for Visit * Reason Comments Med Refill Encounter Details Date Type Department Care Team ([facility] st Contact Info) Description 02/04/2024 Refill [facility] MEDICINE [address] [place] [address] Lewis Carter MD 230 [place] [address] Social History Tobacco Use Types Packs/Day Years [...] 1:15 PM EDT Office Visit [facility] MEDICINE [address] [place] [address] Juan R Blount MD 230 [place] [address] documented as of this encounter Visit Diagnoses Not on filedocumented in this encounter Additional Health Concerns Assessment Noted Time PHQ-9 Depression Total Score: 3 01/15/20 24 1:38 PM EDT documented as of this encounter Care Teams Events Administrative Assistant Relationship Specialty Start Date End Date Juan R Blount MD [address] [place] [address] PCP - General Internal Medicine 12/09/13 Sh[facility] Sutton Endocrinology 08/23/24 documented as of this encounter
--- OUTSIDE RECORDS SUMMARY | 2024-12-22 11:08 | XMS_ITS | Encounter Summary ---
Author Organization [employer] Address 75 [facility] 7t [place] [address] Care Team Providers Care Early Learning Teacher Name Role Phone Juan R Blount MD Primary Care Provide r Reason for Visit * Reason Onset Date Comments [facility]ST[facility] 12/02/2024 Encounter Details Date Type Department Care Team ([facility] st Contact Info) Description 12/02/[address] [facility] MEDICINE 230 [place] [address] Juan R Blount MD 230 [place] [address] [facility]ST[facility] Social History Tobacco Use Types [...] encounter Miscellaneous Notes * Telephone Encounter - MICHEAL Dempsey - 12/03/2024 4:20 PM EDT PCP out of office, please let [facility] know will wait for his return * Telephone Encounter - Faviola Astudillo - 12/02/2024 9:21 AM EDT LISA keller with [facility] requesting a call back due to [...] Upcoming Encounters Date Type Department Care Team ([facility] st Contact Info) Description 12/23/2024 1:15 PM EDT Office Visit [facility] MEDICINE 230 [place] [address] Juan R Blount MD 230 [place], [place] [phone] documented as of this encounter Visit Diagnoses Not on filedocumented in this encounter Additional Health Concerns Assessment Noted Time PHQ-9 Depression Total Score: 3 01/15/20 24 1:38 PM EDT documented as of this encounter Care Teams Early Learning Teacher Relationship Specialty Start Date End Date Juan R Blount MD [address] [place] [address] PCP - General Internal Medicine 12/09/13 Sh[facility] Sutton Endocrinology 08/23/24 documented as of this encounter
--- OUTSIDE RECORDS SUMMARY | 2024-12-22 11:08 | XMS_ITS | Encounter Summary ---
Author Organization [employer] Address 75 [facility] 7t [place] [address] Care Team Providers Care Computer Recycling Worker Name Role Phone Juan R Blount MD Primary Care Provide r Encounter Details Date Type Department Care Team ([facility] Contact Info) Description 05/16/2022 Orders Only [facility] CHC MED & PEDS [address] [place], [place] [phone] Luz Marina Zaragoza LPN Social History Tobacco [...] 1:15 PM EDT Office Visit [facility] MEDICINE 230 [place], [place] [phone] Juan R Blount MD 230 [place], [place] [phone] documented as of this encounter Procedures Procedure Name Priority Date/Time Associated Diagnosis Comments BI MAMMOGRAM DIAGNOSTIC TOMOSYNTHESIS LEFT Routine 05/28/2022 2:58 PM EST documented in this encounter Results * BI Mammogram Diagnostic Tomosynthesis Left (05/28/2022 2:58 PM EST) Anatomical Region Laterality Modality Breast Left Mammography 05/28/2022 2:58 PM EST Narrative 05/28/2022 4:46 PM EST [facility] [address] [place], [place] [address] Mammography Report Signed Patient: Torrie Sy MR#: [id number] : 1955 Acct:[id number] Age/Sex: 67 / F ADM Date: 05/28/22 Loc: HO.WALLYO Attending Dr: Juan R Bey MD Ordering Physician: Juan R Bey MD Results: 3.6MProbably Benign Finding - Short 6 M F/U Suggested Date of Service: 05/28/22 Follow Up: 6 Month F/U Procedure(s): MM tomosynthesis diagnostic LT Accession Number(s): [id number] cc: Juan R Bey MD EXAMINATION: MM [...] in OV> 05/28/22 1643 DD/ 1458 TD/TT: Hydroblaster: SANTOS Procedure Note Donotuseinterpreter, Image - 05/28/2022 [facility] [address] [place] [address] Mammography Report Signed Patient: Torrie SyMR#: [id number] : 5Acct:[id number] Age/Sex: 67 / FADM Date: 05/28/22 Loc: HO.MAMMO Attending Dr: Juan R Bey MD Ordering Physician: Juan R Bey MD Results: 3.6MProbably Benign Finding - Short 6 M F/U Suggested Date of Service: 05/28/22Follow Up: 6 Month F/U Procedure(s): MM tomosynthesis diagnostic LT Accession Number(s): [id number] cc: Juan R Bey MD EXAMINATION: MM [...] in OV> 05/28/22 1643 DD/ 1458 TD/TT: Hydroblaster: SANTOS [facility] External Provider IMG BI PROCEDURES Edited Result - Final documented in this encounter Visit Diagnoses Not on filedocumented in this encounter Care Teams Computer Recycling Worker Relationship Specialty Start Date End Date Juan R Blount MD 230 [place] [address] PCP - General Internal Medicine 12/09/13 Sh[facility] Endocrinology 08/23/24 documented as of this encounter
--- OUTSIDE RECORDS SUMMARY | 2024-12-22 11:08 | XMS_ITS | Encounter Summary ---
Author Organization [employer] Address [address] [facility] 7t [place] [address] Care Team Providers Care Fast Food Services Manager Name Role Phone Juan R Blount MD Primary Care Provide r Reason for Visit * Reason Comments Med Refill Encounter Details Date Type Department Care Team ([facility] st Contact Info) Description 04/16/2024 Refill [facility] CHC MED & PEDS [address] [place] [address] Aggie Melendez MD 230 [place] [address] Primary insomnia Social History Tobacco Use Types [...] Office Visit [facility] MEDICINE 230 [place] [address] Juan R Blount MD 230 [place] [address] documented as of this encounter Visit Diagnoses Diagnosis Primary insomnia Persistent disorder of initiating or maintaining sleep documented in this encounter Additional Health Concerns Assessment Noted Time PHQ-9 Depression Total Score: 3 01/15/20 24 1:38 PM EDT documented as of this encounter Care Teams Fast Food Services Manager Relationship Specialty Start Date End Date Juan R Blount MD 230 [place] [address] PCP - General Internal Medicine 12/09/13 Sh[facility] Sutton Endocrinology 08/23/24 documented as of this encounter
--- OUTSIDE RECORDS SUMMARY | 2024-12-22 11:09 | XMS_ITS | Encounter Summary ---
Author Organization [employer] Address [address] [place] [address] 7 [place] [address] Care Team Providers Care Student Services Rep Name Role Phone Juan R Blount MD Primary Care Provide r Encounter Details Date Type Department Care Team (Late Contact Info) Description 05/31/2022 Abstract [facility] MEDICINE [address] [place] [phone] Juan R Blount MD [address] [place] [phone] Social History Tobacco Use Types Packs/Day Years [...] Office Visit [facility] MEDICINE [address] [place] [address] Juan R Blount MD [address] [place] [phone] documented as of this encounter Visit Diagnoses Not on filedocumented in this encounter Care Teams Student Services Rep Relationship Specialty Start Date End Date Juan R Blount MD [address] [place] [phone] PCP - General Internal Medicine 12/09/13 Sh[facility] Sutton Endocrinology 08/23/24 documented as of this encounter
--- OUTSIDE RECORDS SUMMARY | 2024-12-22 11:09 | XMS_ITS | Encounter Summary ---
Author Organization [employer] Address [address] [place] [address] 7 [place] [address] Care Team Providers Care Acidizer Helper Name Role Phone Juan R Blount MD Primary Care Provide r Reason for Visit * Reason Onset Date Comments Med Refill 12/03/2022 Encounter Details Date Type Department Care Team ([facility] st Contact Info) Description 12/03/2022 Refill [facility] MEDICINE [address] [place] [address] Juan R Blount MD 230 [place] [address] Asthma, unspecified asthma severity, unspecified whether complicated, [...] Description 12/23/2024 1:15 PM EDT Office Visit [facility] MEDICINE 230 [place] [address] Juan R Blount MD [address] [place] [address] documented as of this encounter Visit Diagnoses Diagnosis Asthma, unspecified asthma severity, unspecified whether complicated, unspecified whether persistent documented in this encounter Additional Health Concerns Assessment Noted Time PHQ-9 Depression Total Score: 8 11/20/19 23 9:41 AM EDT documented as of this encounter Care Teams Acidizer Helper Relationship Specialty Start Date End Date Juan R Blount MD 230 [place] [address] PCP - General Internal Medicine 12/09/13 Shasta Sutton Endocrinology 08/23/24 documented as of this encounter
--- OUTSIDE RECORDS SUMMARY | 2024-12-22 11:09 | XMS_ITS | Encounter Summary ---
Author Organization [employer] Address 75 [facility] 7t [place] [address] Care Team Providers Care Gear Straightener Name Role Phone Juan R Bolunt MD Primary Care Provide r Encounter Details Date Type Department Care Team (Late st Contact Info) Description 07/03/2022 Orders Only [facility] CHC MED & PEDS 505 [place], [place] [phone] Luz Marina Zaragoza LPN Social History Tobacco [...] Description 12/23/2024 1:15 PM EDT Office Visit [facility] MEDICINE 230 [place] [address] Juan R Blount MD [address] [place] [address] documented as of this encounter Visit Diagnoses Not on filedocumented in this encounter Care Teams Gear Straightener Relationship Specialty Start Date End Date Juan R Blount MD [address] [place] [address] PCP - General Internal Medicine 12/09/13 Sh[facility] Sutton Endocrinology 08/23/24 documented as of this encounter
--- OUTSIDE RECORDS SUMMARY | 2024-12-22 11:09 | XMS_ITS | Encounter Summary ---
Author Organization [employer] Address 75 [facility] 7t [place] [address] Care Team Providers Care Hides Soaker Name Role Phone Juan R Blount MD Primary Care Provide r Encounter Details Date Type Department Care Team (Late Contact Info) Description 05/29/2022 Orders Only [facility] MEDICINE [address] [place] [address] Cyndi Sy LPN Social History Tobacco Use [...] Description 12/23/2024 1:15 PM EDT Office Visit [facility] MEDICINE [address] [place] [address] Juan R Blount MD [address] [place] [address] documented as of this encounter Visit Diagnoses Not on filedocumented in this encounter Care Teams Hides Soaker Relationship Specialty Start Date End Date Juan R Blount MD [address] [place] [address], [place] [address] PCP - General Internal Medicine 12/09/13 Sh[facility] Sutton Endocrinology 08/23/24 documented as of this encounter
--- OUTSIDE RECORDS SUMMARY | 2024-12-22 11:09 | XMS_ITS | Clinical Summary ---
Author Organization [employer] Address [address] [facility] [address] [place] [address] Care Team Providers Care Cosmetics And Toiletries Salesperson Name Role Phone Juan R Blount MD Primary Care Provide r Allergies Active Allergy Reactions Criticality Noted Date Comments Kurt Inhibitors Cough Acetaminophen Other reaction(s): rash Albuterol Other reaction(s): rash Insulin Other reaction(s): rash Iodine Other reaction(s): rash Latex Other reaction(s): unspecified Medroxyprogesterone Other reaction(s): rash Penicillin V Rash Low 01/07/2024 Medications Continuous Blood Gluc Wafer Fabricator (FreeStyle Crystal 2 [place]) deviceIndications :Type 2 diabetes mellitus with hyperglycemia, with long-term current use of insulin ([facility]) 1 Device before breakfast, before [...] hyperglycemia, with long-term current use of insulin ([facility]) TAKE 1 TABLET BY MOUTH EVERY MORNING 90 tablet 3 Active amLODIPine (Norvasc) 5 MG tabletIndications :Essential hypertension TAKE 1 TABLET BY MOUTH EVERY EVENING 90 tablet Active BD Pen Needle Janene U/F 32G X 4 MM miscIndications:T ype 2 diabetes mellitus without complication, with long-term current use of insulin ([facility]) USE DIRECTED FOUR TIMES DAILY 100 each Active TRUEplus Lancets 33G miscIndications:T ype 2 diabetes mellitus with hyperglycemia ([facility]),jail (current) use of insulin ([facility]) TEST BLOOD SUGAR FOUR TIMES DAILY 300 each Active glucose blood (FREESTYLE LITE) test stripIndications: Type 2 diabetes mellitus with hyperglycemia ([facility]),jail (current) use of insulin ([facility]) TEST BLOOD SUGAR FOUR TIMES DAILY 300 strip Active clotrimazole (Lotrimin) 1 % cream APPLY TOPICALLY TWICE DAILY FOR 28 DAYS 30 g Active Dulaglutide 4.5 MG/0.5ML solution auto-injectorIndi cations:Type 2 diabetes mellitus with hyperglycemia, with long-term current use of insulin ([facility]) Inject 4.5 mg under the skin 1 (one) time per week. 2 mL 3 06/20/2 025 Active gabapentin (Neurontin) 800 MG tabletIndications :Type 2 diabetes mellitus with hyperglycemia, with long-term current use of insulin ([facility]) TAKE 1 CAPSULE BY MOUTH THREE TIMES DAILY IN THE MORNING, AT NOON, AND IN THE EVENING 90 tablet 2 025 Active Umeclidinium [place] (Incruse Ellipta) 62.5 MCG/ACT aerosol powderIndications :Wheeze [...] 1:39 PM EDT): Patient was admitted to [facility] from 12/26-12/28/2023 For evaluation of intermittent right [...] the ER MRI Brain 12/28/2023 negative at [facility] Etiology ? Neuropathy, Lumbar radiculopathy Pt also [...] Pt is now under the care of Manager Of Software Development Dr Holm last seen 05/11/2019 He ordered [...] Eye exam was last done on: 08/2022 [facility] No retinopathy Microalbumin checked on: 07/24/2021 [...] Encounters Date Type Department Care Team Description 12/21/2024 [facility] [address] [facility] [place] [address] Juan R Blount MD Wheeze 12/17/2024 Refill [facility] [address] [place] [address] Juan R Blount MD Asthma, unspecified asthma severity, unspecified whether complicated, unspecified whether persistent 12/14/2024 Orders Only GENERIC EXTERNAL DATA DEPARTMENT Provider, Generic External Data 12/09/2024 Refill [facility] [address] [place] [address] Juan R Blount MD Mixed hyperlipidemia; Wheezing 12/02/2024 Telephone [facility] [address] [place] [address] Juan R Blount MD [facility] QUESTIONS 11/12/2024 Refill [facility] [address] [place] [address] Juan R Blount MD Primary insomnia 11/10/2024 Orders Only GENERIC EXTERNAL DATA DEPARTMENT Provider, Generic External Data 11/10/2024 Refill [facility] [address] [facility] [place] [address] Juan R Blount MD Essential hypertension 11/09/2024 Refill [facility] [address] [facility] [place] [address] Juan R Blount MD 10/28/2024 Refill [facility] [address] [facility] [place] [address] Elham Fuentes MD Asthma, unspecified asthma severity, unspecified whether complicated, unspecified whether persistent 10/19/2024 Telephone [facility] [address] [facility] [place] [address] Prisca Singh, RN Care Coordination 10/18/2024 Orders Only GENERIC EXTERNAL DATA DEPARTMENT Provider, Generic External Data 10/12/2024 10:30 AM EDT Office Visit [facility] [address] [place] [address] Juan R Blount MD Preoperative examination (Primary Dx); Abnormal ECG; Type 2 diabetes mellitus without complication, with long-term current use of insulin ([facility]) 10/12/2024 Travel 10/11/2024 Telephone [facility] MEDIC[facility] [address] [place] [address] Juan R Blount MD chart prep 10/10/2024 Refill [facility] [address] [place] [address] Maria Del Carmen Reese MD Wheeze 10/10/2024 Refill [facility] [address] [place] [address] Juan R Blount MD Type 2 diabetes mellitus with hyperglycemia, with long-term current use of insulin ([facility]); Wheeze 10/08/2024 Telephone [facility] [address] [place] [address] Prisca Singh, BRENT Care Coordination 10/07/2024 Refill [facility] [address] [place] [address] Helena Hernández ANP Type 2 diabetes mellitus with hyperglycemia, with long-term current use of insulin ([facility]) 10/07/2024 Refill [facility] [address] [place], [place] [phone] Juan R Blount MD Type 2 diabetes mellitus with hyperglycemia, with long-term current use of insulin ([facility]) 10/06/2024 Refill [facility] [address] [place] [address] Juan R Blount MD Primary insomnia 10/06/2024 Telephone [facility] MEDIC[facility] [address] [place] [address] Juan R Blount MD clearance letter from Last 3 Months Immunizations Immunization Administration [...] Description 12/23/2024 1:15 PM EDT Office Visit [facility] [address] [place] [address] Juan R Blount MD [address] [place] [address] Health Maintenance Due Date Last Done Comments [...] 1-dose series) 2015 COVID-19 Vaccine ( season) 2024 04/29/2022, 12/11/2021, [...] Associated Diagnosis Comments GLUCOSE, WHOLE BLOOD Routine 12/14/2024 11:00 AM EDT STRESS TEST WITH MYOCARDIAL PERFUSION Routine 11/25/2024 [...] with long-term current use of insulin (CMS/HCC) POCT GLUCOSE Routine 10/12/2024 10:36 AM EDT Type 2 diabetes mellitus without complication, with long-term current use of insulin (CMS/HCC) BI MAMMOGRAM DIAGNOSTIC TOMOSYNTHESIS RIGHT Routine 09/01/2024 1:22 PM EDT HEPATITIS PANEL, GENERAL Routine 02/05/2024 9:25 AM EDT from Last 3 Months or Most Recently Relevant to Health Maintenance Results * (ABNORMAL) Glucose, Whole Blood (12/14/2024 11:00 AM EDT) Glucose, Whole Blood 213(H) 60 - 115 mg/dL [facility] Comment:METER #: [id number] Testing performed in the Endocrinology Department [address] , [address], [facility]. 12/14/2024 11:0 0 AM EDT 12/14/2024 11:04 AM EDT us Generic External Data Provider LAB BLOOD ORDERAB LES Final Result [facility] [address] [place] [phone] * Stress test with myocardial perfusion (11/25/2024 9:41 AM EDT) 11/25/2024 9:41 AM EDT Narrative [facility] - 11/28/2024 9:19 AM EDT [place] [address] Nuclear Medicine Report Signed Patient: Torrie Sy MR#: [id number] : 1955 Acct:[id number] Age/Sex: 69 / F ADM Date: 11/25/24 Loc: SOWMYA Attending Dr: David Sarmiento MD Ordering Physician: David Sarmiento MD Date of Service: 11/25/24 Procedure(s): NM cardiolite stress test Accession Number(s): [id number] cc: Juan R Bey MD; David Sarmiento [...] 11/28/24 0915 DD/ 0941 TD/TT: 11/26/24 1400 Director Biostatistics: Procedure Note Donotuseinterpreter, Image - 11/28/2024 [place] [address] Nuclear Medicine Report Signed Patient: Torrie Sy#: [id number] : 5Acct:[id number] Age/Sex: 69 / FADM Date: 11/25/24 Loc: HO.CARD Attending Dr: David Sarmiento MD Ordering Physician: David Sarmiento MD Date of Service: 11/25/24 Procedure(s): NM cardiolite stress test Accession Number(s): [id number] cc: Juan R Bey MD; David Sarmiento [...] David Sarmiento MD 11/28/2024 09:15 AM EDT Workstation: [employer] Dictated By: David Sarmiento MD Signed By: <Electronically signed by David Sarmiento MD inOV> 11/28/24 0915 DD/ 0941 TD/TT: 11/26/24 1400 Director Biostatistics: [facility] External Provider CV STRE SS PROCEDURES Edited Result - Final [facility] [address] [place] [phone] * Cell Block (11/10/2024 11:26 AM EDT) 11/10/2024 11:2 6 AM EDT 11/10/2024 11:44 AM EDT Narrative [facility] - 11/11/2024 10:45 AM EDT ----- ------- Name: Torrie Sy Age/Sex: 69/F : 1955 Unit#: [id number] Attend Dr: Eduarda Quintanilla MD Re11/10/24 Status: DEP REF Location: [facility] Disch: ----- ------- SPEC : [id number] RECD: 11/10/24-1143 STATUS: AMY WEBSTER NUM: [id number] [place]: 11/10/24-[address] [facility] [address]: Eduarda Quintanilla MD ENTERED: 11/10/24-1212 SP TYPE: Cytology OTHR DR: Juan R Bey MD ORDERED: Cell Block, Fine Ndl Asp Diagnosis Thyroid, left mid lower pole 3.3 cm nodule, fine needle aspiration: Non-diagnostic ([place] category I). COMMENT: Only rare groups of [...] developed and their performance characteristics determined by [facility]. They have not been cleared or approved by the U.S. Food and Drug Administration (FDA). However, the FDA has determined that such clearance or approval is not necessary. This laboratory is certified under the Clinical Laboratory Improvement Amendments of 1988 (CLIA) as qualified to perform high complexity clinical laboratory testing. Copies To: Juan R Bey MD [address] [address] Eduarda Quintanilla MD [facility] Endocrinology [address] [address] CONTINUED ON NEXT PAGE ----- ------- Name: Torrie Sy Age/Sex: 69/F : 1955 Unit#: [id number] Attend Dr: Eduarda Quintanilla MD Re11/10/24 Status: DEP REF Location: [facility] Disch: ----- ------- SPEC : [id number] RECD: 11/10/24114 STATUS: AMY WEBSTER NUM: [id number] [place]: 11/10/241126 [facility] DR: Eduarda Quintanilla MD ENTERED: 11/10/24-1212 SP TYPE: Cytology OTHR DR: Juan R Bey MD ORDERED: Cell Block, Fine Ndl Asp Copies To: (Continued) [email or web address] ----- ------- Signed (signature on file) Juan Blunt MD 11/11/24 1045 ----- ------- END OF REPORT us Generic External Data Provider LAB CYTOLOGY STEVAN PEREZ Final Result [facility] [address] [place] [address] [phone] * (ABNORMAL) CBC auto differential (10/18/2024 2:56 PM EDT) White Blood Count 14.1(H) 4.8 - 10.8 X10*3/uL [facility] Red Blood Count 4.18(L) 4.20 - 5.50 X10*6/uL [facility] Hemoglobin 12.7 12.0 - 16.0 g/dl [facility] Hematocrit 38.6 37.0 - 47.0 % [facility] Mean Corpuscular Volume 92.3 80.0 - 98.0 fL [facility] Mean Corpuscular Hemoglobin 30.4 27.0 - 33.0 pg [facility] Mean Corpuscular HGB Conc 32.9 31.0 - 35.0 g/dl [facility] Red Cell Distribution Width 13.7 11.0 - 16.0 % [facility] Platelet Count 375 160 - 400 X10*3/uL [facility] Mean Platelet Volume 10.5 9.4 - 12.3 fL [facility] Neutrophils Percent Auto 67.2 45 - 73 % [facility] Imm Gran Pct Auto 0.4 0.0 - 0.4 % [facility] Lymphocytes Percent Auto 25.1 20 - 40 % [facility] Monocytes Percent Auto 4.8 2 - 11 % [facility] Eosinophils Percent Auto 1.6 0 - 4 % [facility] Basophils Percent Auto 0.9 0 - 2 % [facility] NRBC Pct Auto 0.0 0.0 - 0.2 /100WBC [facility] Neutrophils Absolute Auto 9.5(H) 2.0 - 8.3 x10*3/uL [facility] Imm Gran Abs Auto 0.06(H) 0.00 - 0.03 X10*3/uL [facility] Lymphocytes Absolute Auto 3.5 1.2 - 4.9 X10*3/uL [facility] Monocytes Absolute Auto 0.7 0.1 - 1.2 X10*3/uL [facility] Eosinophils Absolute Auto 0.2 0.0 - 0.4 X10*3/uL [facility] Basophils Absolute Auto 0.1 0.0 - 0.2 X10*3/uL [facility] NRBC Abs Auto 0.000 0.0 - 0.012 X10*3/uL [facility] Blood Venous blood specimen / Unknown 10/18/2024 2:56 PM EDT 10/18/2024 2:56 PM EDT us Juan R Vega MD LAB BLOOD ORDERABLES Final Result [facility] [address] [place] [phone] * ALT (10/18/2024 2:56 PM EDT) Alanine Aminotransferase 9 0 - 31 U/L [facility] 10/18/2024 2:56 PM EDT 10/18/2024 2:56 PM EDT us Generic External Data Provider LAB BLOOD ORDERAB LES Final Result [facility] [address] [place] [phone] * AST (10/18/2024 2:56 PM EDT) Aspartate Amino Transferase 23 5 - 31 U/L [facility] 10/18/2024 2:56 PM EDT 10/18/2024 2:56 PM EDT us Generic External Data Provider LAB BLOOD ORDERAB LES Final Result Performing Organization Address [facility] Co de Phone Number [facility] [address] [place] [phone] * TSH (10/18/2024 2:56 PM EDT) Thyroid Stimulating Hormone 2.14 0.32 - 4.0 uIU/mL [facility] Comment:TSH 3rd Generation ( [facility]) 10/18/2024 2:56 PM EDT 10/18/2024 2:56 PM EDT us Generic External Data Provider LAB BLOOD ORDERAB LES Final Result Performing Organization Address [facility] Co de Phone Number [facility] [address] [place] [phone] * T4, Free (10/18/2024 2:56 PM EDT) Free T4 (Free Thyroxine) 0.96 0.71 - 1.85 ng/dL [facility] 10/18/2024 2:56 PM EDT 10/18/2024 2:56 PM EDT Generic External Data Provider LAB BLOOD ORDERAB LES Final Result Performing Organization Address [facility] Co de Phone Number [facility] [address] [place] [phone] * Vitamin B12 (10/18/2024 2:56 PM EDT) Vitamin B12 200 200 - 900 pg/mL [facility] Comment:NORMAL 200-900 PG/ML INDETERMINATE 160-199 PG/ML DEFICIENT < 160 PG/ML 10/18/2024 2:56 PM EDT 10/18/2024 2:56 PM EDT us Generic External Data Provider LAB BLOOD ORDERAB LES Final Result Performing Organization Address [facility] Co de Phone Number [facility] [address] [place] [phone] * (ABNORMAL) Lipid Panel, Standard (10/18/2024 2:56 PM EDT) Triglycerides 186(H) <150 mg/dL [facility] Comment:Desirable Triglyceri de: less than 150 mg/dLBorderline High Triglyceride 150-199 mg/dLHigh Triglyceride: 200-499 mg/dLVery High Triglyceride: greater than or equal to 5OO mg/dL Cholesterol 127 <200 mg/dL [facility] Comment:Desirable Cholestero l: less than 200 mg/dLBorderline High Cholesterol: 200-239 mg/dLHigh Cholesterol: greater than 239 mg/dL LDL Cholesterol Calculated 56 <100 mg/dL [facility] Comment:Desirable LDL: less than 100 mg/dLNear Optimal/Above Optimal LDL: 110- 129 mg/dLBorderline High LDL: 130-159 mg/dLHigh LDL: 160-189 mg/dLVery High LDL: greater than or equal to 190 mg/dL HDL Cholesterol 34(L) >40 mg/dL [facility] Comment:Desirable HDL: great er than 40 mg/dL Note: This HDL assay may give artificially low results in patients with liver disease. 10/18/2024 2:56 PM EDT 10/18/2024 2:56 PM EDT us Generic External Data Provider LAB BLOOD ORDERAB LES Final Result Performing Organization Address [facility]/ZIP Co de Phone Number [facility] [address] [place] [phone] * (ABNORMAL) Basic Metabolic Panel (10/18/2024 2:56 PM EDT) Sodium 141 135 - 145 mmol/L [facility] Potassium 4.8 3.3 - 5.1 mmol/L [facility] Chloride 106 96 - 108 mmol/L [facility] Carbon Dioxide 28 22 - 29 mmol/L [facility] Anion Gap 12 12 - 20 [facility] Urea Nitrogen (BUN) 16 9 - 16 mg/dL [facility] Creatinine, Serum 0.85 0.5 - 1.4 mg/dL [facility] Estimated Glomerular Filt Rate >60 [facility] Comment:Chronic Kidney Disea se: Estimated GFR < 60 mL/min/1.49z6Kmdmdo Kidney Disease: Estimated GFR < 15 mL/min/1.73m2 Glucose 148(H) 60 - 115 mg/dL [facility] Calcium 9.5 8.4 - 10.2 mg/dL [facility] Blood Venous blood specimen / Unknown 10/18/2024 2:56 PM EDT 10/18/2024 2:56 PM EDT us Juan R Vega MD LAB BLOOD ORDERABLES Final Result [facility] [address] [place] [address] [phone] * Albumin, Random Urine W/Creatinine (10/18/2024 2:55 PM EDT) Creatinine, Urine 136.42 mg/dL [facility] Microalbumin Urine 28.0 mg/L [facility] Microalbum Creatinine Ratio Ur 20.5 <30 ug/mg cr [facility] Comment:Albumin/Creatinine R atio Reference Ranges: Normal: < 30 ug/mg creatinine Microalbuminuria: 30 - 300 ug/mg creatinineClinical Albuminuria: > 300 ug/mg creatinine 10/18/2024 2:55 PM EDT 10/18/2024 3:23 PM EDT us Generic External Data Provider LAB URINE ORDERAB LES Final Result [facility] [address] [place] [address] [phone] * ECG 12 lead (10/12/2024 3:19 PM EDT) Narrative Juan R Blount MD - 10/12/2024 3:19 PM EDT Sinus tachycardia, Vs V2-V3 Juan R Vega MD ECG ORDERABLES Final Result * (ABNORMAL) POCT HGB A1C (10/12/2024 11:09 AM EDT) Hemoglobin A1C 7.2(A) 4.0 - 6.0 % QC Media Lot # [id number] Lot# Expiration Date Blood 10/12/2024 11:0 9 AM EDT Juan R Vega MD POINT OF CARE TEST EN TER/EDIT ORDERABLES Final Result * POCT Glucose (10/12/2024 10:36 AM EDT) Glucose Blood, POC 188 60 - 200 mg/dL QC Media Lot # [id number] Lot# Expiration Date ,025 Blood Capillary blood specimen / Unknown 10/12/2024 10:36 AM EDT Juan R Vega MD POINT OF CARE TEST EN TER/EDIT ORDERABLES Final Result * BI Mammogram Diagnostic Tomosynthesis Right (09/01/2024 1:22 PM EDT) Anatomical Region Laterality Modality Breast Right Mammography 09/01/2024 1:22 PM EDT Narrative 09/01/2024 2:33 PM EDT [facility] [address] [place] [address] Mammography Report Signed Patient: Torrie Sy MR#: [id number] : 1955 Acct:[id number] Age/Sex: 69 / F ADM Date: 09/01/24 Loc: HO.MAMMO Attending Dr: Juan R Bey MD Ordering Physician: Juan R Bey MD Resu lts: 4Suspicious Finding Date of Service: 09/01/24 Follow Up: Biopsy Recommend ed Procedure(s): MM tomosynthesis diagnostic RT Accession Number(s): [id number] cc: Juan R Bey MD EXAMINATION: MM [...] 09/01/24 1429 DD/ 1322 TD/TT: 09/01/24 1345 Director Biostatistics: Procedure Note Donotuseinterpreter, Image - 09/06/[facility] [address] [place] [address] Mammography Report Signed Patient: Torrie Sy#: [id number] : 5Acct:[id number] Age/Sex: 69 / FADM Date: 09/01/24 Loc: HO.WALLYO Attending Dr: Juan R Bey MD Ordering Physician: Juan R Bey MDResu lts: 4Suspicious Finding Date of Service: 09/01/24Follow Up: Biopsy Recommend ed Procedure(s): MM tomosynthesis diagnostic RT Accession Number(s): [id number] cc: Juan R Bey MD EXAMINATION: MM [...] 09/01/24 1429 DD/ 1322 TD/TT: 09/01/24 1345 Director Biostatistics: us Juan R Vega MD IMG BI PROCEDURES Mj bernardo Result - Final * Hepatitis Panel, General (02/05/2024 9:25 AM EDT) Hepatitis A IgM Nonreactive Nonreactive [facility] Comment:IgM antibodies to [place] CRU[place] V not detected; does not exclude earlyacute or recovered HAV infection. ~Hepatitis B Surface Antibody NONREACTIVE Nonreactive [facility] Comment:Nonreactive: < 8.00 mIU/mL Hepatitis B Core Antibody Nonreactive Nonreactive [facility] Hepatitis C Antibody Nonreactive Nonreactive [facility] Comment:Antibodies to HCV no t detected; does not exclude early acuteHCV infection. Hepatitis B Surface Ag Negative Negative [facility] 02/05/2024 9:25 AM EDT 02/05/2024 9:25 AM EDT us Generic External Data Provider LAB BLOOD ORDERAB LES Final Result Performing Organization Address City/State/[facility] Co de Phone Number [facility] [address] [place] [phone] [phone] from Last 3 Months or Most Recently Relevant to Health Maintenance Insurance * Guarantor: Torrie Sy Account Type Relation to Patient Date of Phone Billing Address Personal/Family Self [address] [place] [address] [facility]ARE < 65 [place] [phone] * Guarantor: Torrie Sy Account Type Relation to Patient Date of Phone Billing Address Personal/Family Self [address] [place] [address] * Guarantor: Torrie Sy Account Type Relation to Patient Date of Phone Billing Address Personal/Family Self [address] [place] [address] * Guarantor: Torrie Sy Account Type Relation to Patient Date of Phone Billing Address Personal/Family Self [address] [place] [address] Care Teams [employer] To[employer] Salesperson Relationship Specialty Start Date End Date Juan R Blount MD [address] [facility] [place] [phone] PCP - General Internal Medicine 12/09/13 [facility] 08/23/24
--- OUTSIDE RECORDS SUMMARY | 2024-12-22 11:09 | XMS_ITS | Encounter Summary ---
Author Organization [employer] Address [address] [facility] [address] [place] [address] Care Team Providers Care Hydraulic Corrugating Machine Operator Name Role Phone Juan R Blount MD Primary Care Provide r Encounter Details Date Type Department Care Team (Late st Contact Info) Description 06/11/2022 Orders Only [facility] PEDS [address] [place], [place] [phone] Luz Marina Zaragoza LPN Social History Tobacco [...] Description 12/23/2024 1:15 PM EDT Office Visit [facility] MEDICINE [address] [place] [address] Juan R Blount MD [address] [place] [phone] documented as of this encounter Visit Diagnoses Not on filedocumented in this encounter Care Teams Hydraulic Corrugating Machine Operator Relationship Specialty Start Date End Date Juan R Blount MD [address] [place] [phone] PCP - General Internal Medicine 12/09/13 [facility] 08/23/24 documented as of this encounter
--- OUTSIDE RECORDS SUMMARY | 2024-12-22 11:09 | XMS_ITS | Encounter Summary ---
Author Organization [employer] Address [address] [place] [address] 7 [place] [address] Care Team Providers Care Practice Nurse Name Role Phone Juan R Blount MD Primary Care Provide r Encounter Details Date Type Department Care Team (Late Contact Info) Description 10/29/2022 Abstract [facility] MEDICINE [address] [place] [phone] Juan R Blount MD [address] [place] [address] [phone] Social History Tobacco Use Types Packs/Day Years [...] [facility] [address] [place] [phone] Juan R Blount MD [address] [place] [address] [phone] documented as of this encounter Visit Diagnoses Not on filedocumented in this encounter Care Teams Practice Nurse Relationship Specialty Start Date End Date Juan R Blount MD [address] [place] [address] [phone] PCP - General Internal Medicine 12/09/13 [facility] End[facility]in[facility] 08/23/24 documented as of this encounter
== END 2024-12-22 09:54 | disposition home or self-care (01) ==
LOC: HO.MAMMO 09:53
PROVIDERS: PCP Internal Medicine; Visit Provider Surgery
DX: Z13.89 Encounter for screening for other disorder (principal)

== ENCOUNTER 2024-12-27 09:57 | Outpatient (REF) | payer OTHER, SELFPAY ==
--- OUTSIDE RECORDS SUMMARY | 2024-05-25 09:00 | XMS_ITS ---
Author Organization [facility] Address [address] [place] [id number] Care Team Providers Care Time Piece Repairer Name Role Phone Angelito Vega MD, Juan R Primary Care Provide Caden Jordan [phone] REASON FOR VISIT Patient presents today for a COLON SCREENING Encounters Encounter Location Date Provider Diagnosis [facility] [address] [place] [id number] 05/25/2024 Caden Huffman Plan Of Treatment No Information Progress Notes * MERCEDES BRUSHDOB:[birth year] (69 yo M)Acc No.[id number]:05/25/2024 Progress Notes Patient: MERCEDES PEPE Provider: Rey Huffman MD :1955 A ge:69 Y S ex:Male Date:05/25/2024 Address:[address] [place], [place] [id number] Pcp:Juan R montalvo MD Subjective: * Chief Complaints: * 1 . Patient presents today for a COLON SCREENING. * Medical History: Objective: * Vitals: Assessment: Plan: * Treatment: * * The named appointment provid er may or may not be the originator of this progress note, and it is not deemed complete until electronically signed by the appointment provider. Sign off status: Pending * Provider: Rey Huffman MD Date: 0 05/25/2024 Generated for Deirdre dominguez/Bobbi/Chitraitting on: 0 12/27/2024 11:39 AM EDT
--- OUTSIDE RECORDS SUMMARY | 2024-09-28 06:10 | XMS_ITS ---
Author Organization [facility] Address [address] [place] [phone] Care Team Providers Care Spinner Hand Name Role Phone Angelito Vega MD, Juan R Primary Care Provide Caden Jordan [phone] REASON FOR VISIT patient presents today for COLON SCREENING Encounters Encounter Location Date Provider Diagnosis [facility] [address] [place] [phone] 09/28/2024 Caden Huffman Plan Of Treatment No Information Progress Notes * MERCEDES BRUSHDOB:[birth year] (69 yo M)Acc No.[id number]:09/28/2024 Progress Notes Patient: MERCEDES PEPE Provider: Rey Huffman MD :1955 A ge:69 Y S ex:Male Date:09/28/2024 Address:[address] [place], [place] [id number] Pcp:Juan R montalvo MD Subjective: * Chief [...] Date: 09/28/2024 Generated for Deirdre dominguez/Bobbi/Chitraitting on: 12/27/2024 11:39 AM EDT
--- OUTSIDE RECORDS SUMMARY | 2024-12-23 13:15 | XMS_ITS | Encounter Summary ---
Author Organization [employer] Address [address] [facility] 7t [place] [address] Care Team Providers Care General Practice Name Role Phone Juan R Blount MD Primary Care Provide r Reason for Visit * Reason Comments Follow-up Encounter Details Date Type Department Care Team ([facility] st Contact Info) Description 12/23/2024 1:15 PM EDT Office Visit [facility] MEDICINE [address] [place], [place] [phone] Juan R Blount MD [address] [place], [place] [phone] Type 2 diabetes mellitus with diabetic polyneuropathy, with long-term current use of insulin (CMS/HCC) (Primary Dx); Right thyroid nodule; Abnormal ECG; Malignant neoplasm of right female breast, unspecified estrogen receptor status, unspecified site of breast (CMS/HCC); Polyneuropathy associated with underlying disease (CMS/HCC); Chronic midline low back pain without sciatica; Neck pain on right side; Preventative health care Social History Tobacco Use Types Packs/Day Years [...] AM EDT documented as of this encounter Last Filed Vital Signs Vital Sign Reading Time Taken Comments Blood Pressure 120/70 12/23/2024 2:04 PM EDT Pulse 106 12/23/2024 2:04 PM EDT Temperature 37.4 C (99.4 F) 12/23/2024 2:04 PM EDT Respiratory Rate 20 12/23/2024 2:04 PM EDT Oxygen Saturation 95% 12/23/2024 2:04 PM EDT Inhaled Oxygen Concentration - - Weight 75.4 kg (166 lb 3.2 oz) 12/23/2024 2:04 P M EDT Height 167.6 cm (5' 6 ) 12/23/2024 2:04 PM EDT Body Mass Index 26.83 12/23/2024 2:04 PM EDT documented in this encounter Progress Notes * Juan R Vega MD - 12/23/2024 1:15 PM EDT Images from the original note were not included. SUBJECTIVE Torrie Sy is a 69 y.o. female who presents for Follow-up. Sharon, 69 years old Diabetes She presents for her follow-up diabetic visit. She has type 2 diabetes mellitus. Pertinent negatives for hypoglycemia include no headaches. Pertinent negatives for diabetes include no chest pain. Review of Systems Constitutional: Negative for fever. HENT: Negative for sore throat. Respiratory: Negative for cough and shortness of breath. Cardiovascular: Negative for chest pain. Gastrointestinal: Negative for abdominal pain. Neurological: Negative for headaches. Allergies[1] OBJECTIVE Vitals: 12/23/24 1404 BP: 120/70 BP Location: Left arm Patient Position: Sitting BP Cuff Size: Adult Pulse: 106 Resp: 20 Temp: 99.4 ??F (37.4 ??C) TempSrc: Oral SpO2: 95% Weight: 166 lb 3.2 oz (75.4 kg) Height: 5' 6 (1.676 m) Physical Exam Vitals reviewed. Constitutional: Appearance: Normal appearance. HENT: Head: Normocephalic and atraumatic. Right Ear: External ear normal. Left Ear: External ear normal. Nose: Nose normal. Mouth/Throat: Mouth: Mucous membranes are moist. Eyes: Conjunctiva/sclera: Conjunctivae normal. Cardiovascular: Rate and Rhythm: Normal rate and regular rhythm. Pulmonary: Effort: Pulmonary effort is normal. Breath sounds: Normal breath sounds. Skin: General: Skin is warm. Neurological: Mental Status: She is alert. Mental status is at baseline. Assessment/Plan Problem List Items Addressed This Visit Type 2 diabetes mellitus with diabetic polyneuropathy, with long-term current use of insulin ([facility]) - Primary Pt here for a f/u DM better controlled Back under the care of Endocrinology last seen 12/14/2024 She is on a regimen of: Tresiba 52 units nightly. Novolog 17 units before breakfast and dinner and 20 units before lunch due to hyperglycemia in the afternoon. Administer 5-10 minutes prior to meals.Trulicity 4.5 mg weekly and Actos 15 mg daily. She is Off Metformin due to worsening renal function Hgb A1c 12/23/2024: Eye exam was last done on: 08/2022 [facility] [place] No retinopathy Microalbumin checked on: 10/18/2024 was: 28 Pt is on an ARB. Foot check not done Pt reports compliance with Asa 81 mg po daily Pt advised to: adhere to diabetic diet check your blood sugars regularly check your feet on a daily basis Right thyroid nodule While undergoing a Carotid US. Pt had an incidental finding 12/27/2023US carotid duplex 3. Right thyroid nodule measuring 3.1 cm. Recommend further attenuation with nonemergent thyroid ultrasound Thyroid US showed: Pt under the care of endocrinology Dr. Quintanilla 11/10/2024: She is now Status post FNA of the left mid lower 3.3 cm nodule which came back as nondiagnostic witha very rare follicular cells seen in the sample, Ransom category 1. She discussed with the patient that nondiagnostic results yield a 5-20% risk of malignancy. At this point the plan is to repeat the biopsy in about 3 months. Fire Alarm Dispatcher will arrange for repeat FNA left mid lower 3.3 cm thyroid nodule in 3 months Abnormal ECG During a pre-op pt's ECG shows Vs V2-V3 Referred to Cardiology for cardiac clearance given that she is going under general anesthesia and she is a 69 yr old hypertensive, diabetic and a smoker. Seen by Front Services Agent Dr Sarmiento 10/20/2024 He ordered an ECHO and stress test and was going to clear her for her breast procedure afterwards Malignant neoplasm of right breast (CMS/HCC) Patient with a newly diagnosed invasive ductal carcinoma of the right breast. Pt is scheduled for a right breast lumpectomy with localizer, right axillary sentinel node biopsy for 12/29/2024 Patient expressed confusion and concern regarding preoperative localization procedures, specifically regarding placement of RFID tag versus existing biopsy clip. Communication with surgical team and office of Dr. Mclean initiated to clarify preoperative requirements and ensure patient understanding. - Zachary from Dr. Mclean???s office to coordinate and reschedule preoperative localization procedure (RFID tag placement) and ensure direct communication between patient and surgeon for clarification. Advised patient to follow up and maintain communication with surgical team to avoid delay of lumpectomy. 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 Chronic midline low back pain without sciatica Patient c/o right sided low back pain associated with right LE weakness . Pt reports multiple fallsas a result and now requires help with ambulation and uses a wheelchair to increase her independence. MRI LS spine showed: Spondylosis resulting in grade 1 retrolisthesis central spinal canal and bilateral neuroforamina stenosis at L2-3. Spondylosis at L4-5 resulting in right neural foramina narrowing encroaching the exiting nerve roots. Spondylosis L5-S1 encroaching likely compressing the left L5 and encroaching left S1. NCS showed: Mod severe sensory motor peripheral neuropathy with features of demyelination and axonal loss Seen by Neurology 02/2024 who recommended an LP done April 28 2024, records requested from Neurology She was seen at [facility] 08/2024 and was supposed to be seen at the [facility]. But has not been seen yet Neck pain on right side Patient with complaints of intermittent right arm weakness x 3 days and severe neck pain. MRI of brain negative for acute stroke. Seen by neurology and Symptoms suggestive of cervical radiculopathy MRI C spine showed:04/08/2024 Multilevel cervical spondylosis C3 C7 more conspicuous at C4-5 C5-6 and C6-7 levels without cord compression, edema and or myelopathy. [facility] Mammogram 09/01/2024: 1. Solid mass versus complicated cyst at [...] matches the developing focal asymmetry with distortion. BI-RADS BI-RADS 4 - Suspicious finding Biopsy recommended: Biopsy showed invasive ductal carcinoma of right breast Plan: Lumpectomy 12/29/2024 pt cleared by Cardiology Pap Smear: 12/02/2022 NL, Colonoscopy: 08/29/2008. Referred to GI for repeat, seen in 2021. Pt missed the appointment for the colonoscopy. She was referred back in 12/[address] Huffman, unclear if she kept appointment. Vaccines: refused Flu shot. Dexa scan: 08/31/2012. This note was drafted using Ambient (AI) technology. The patient/patient's guardian has been informed and has consented to the use of this technology: Yes Future Appointments Date Time Provider Department Center 01/25/2025 1:00 PM Juan R Vega MD MEDICINE [facility] [1] Allergies Allergen Reactions Kurt Inhibitors Cough Acetaminophen Other reaction(s): rash Albuterol Other reaction(s): rash Insulin Other reaction(s): rash Iodine Other reaction(s): rash Latex Other reaction(s): unspecified Medroxyprogesterone Other reaction(s): rash Penicillin V Rash documented in this encounter Miscellaneous Notes * Assessment & Plan Note - Juan R Vega MD - 12/23/2024 4:18 PM EDT Associated Problem(s): Preventative health care Mammogram 09/01/2024: 1. Solid mass versus complicated cyst at [...] matches the developing focal asymmetry with distortion. BI-RADS BI-RADS 4 - Suspicious finding Biopsy recommended: Biopsy showed invasive ductal carcinoma of right breast Plan: Lumpectomy 12/29/2024 pt cleared by Cardiology Pap Smear: 12/02/2022 NL, Colonoscopy: 08/29/2008. Referred to GI for repeat, seen in 2021. Pt missed the appointment for the colonoscopy. She was referred back in 12/[address] Huffman, unclear if she kept appointment. Vaccines: refused Flu shot. Dexa scan: 08/31/2012. * Assessment & Plan Note - Juan R Vega MD - 12/23/2024 4:13 PM EDT Associated Problem(s): Neck pain on right side Patient with complaints of intermittent right arm weakness x 3 days and severe neck pain. MRI of brain negative for acute stroke. Seen by neurology and Symptoms suggestive of cervical radiculopathy MRI C spine showed:04/08/2024 Multilevel cervical spondylosis C3 C7 more conspicuous at C4-5 C5-6 and C6-7 levels without cord compression, edema and or myelopathy. * Assessment & Plan Note - Juan R Vega MD - 12/23/2024 4:12 PM EDT Associated Problem(s): Chronic midline low back pain without sciatica Patient c/o right sided low back pain associated with right LE weakness . Pt reports multiple fallsas a result and now requires help with ambulation and uses a wheelchair to increase her independence. MRI LS spine showed: Spondylosis resulting in grade 1 retrolisthesis central spinal canal and bilateral neuroforamina stenosis at L2-3. Spondylosis at L4-5 resulting in right neural foramina narrowing encroaching the exiting nerve roots. Spondylosis L5-S1 encroaching likely compressing the left L5 and encroaching left S1. NCS showed: Mod severe sensory motor peripheral neuropathy with features of demyelination and axonal loss Seen by Neurology 02/2024 who recommended an LP done April 28 2024, records requested from Neurology She was seen at [facility] 08/2024 and was supposed to be seen at the [facility] 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 * Assessment & Plan Note - Juan R Vega MD - 12/23/2024 2:15 PM EDT Associated Problem(s): Malignant neoplasm of right breast (CMS/HCC) Patient with a newly diagnosed invasive ductal carcinoma of the right breast. Pt is scheduled for a right breast lumpectomy with localizer, right axillary sentinel node biopsy for 12/29/2024 Patient expressed confusion and concern regarding preoperative localization procedures, specifically regarding placement of RFID tag versus existing biopsy clip. Communication with surgical team and office of Dr. Mclean initiated to clarify preoperative requirements and ensure patient understanding. - Zachary from Dr. Mclean???s office to coordinate and reschedule preoperative localization procedure (RFID tag placement) and ensure direct communication between patient and surgeon for clarification. Advised patient to follow up and maintain communication with surgical team to avoid delay of lumpectomy. * Assessment & Plan Note - Juan R Vega MD - 12/23/2024 2:11 PM EDT Associated Problem(s): Abnormal ECG Images from the original note were not included. During a pre-op pt's ECG shows Vs V2-V3 Referred to Cardiology for cardiac clearance given that she is going under general anesthesia and she is a 69 yr old hypertensive, diabetic and a smoker. Seen by Front Services Agent Dr Sarmiento 10/20/2024 He ordered an ECHO and stress test and was going to clear her for her breast procedure afterwards * Assessment & Plan Note - Juan R Vega MD - 12/23/2024 2:09 PM EDT Associated Problem(s): Right thyroid nodule While undergoing a Carotid US. Pt had an incidental finding 12/27/2023US carotid duplex 3. Right thyroid nodule measuring 3.1 cm. Recommend further attenuation with nonemergent thyroid ultrasound Thyroid US showed: Pt under the care of endocrinology Dr. Quintanilla 11/10/2024: She is now Status post FNA of the left mid lower 3.3 cm nodule which came back as nondiagnostic witha very rare follicular cells seen in the sample, Ransom category 1. She discussed with the patient that nondiagnostic results yield a 5-20% risk of malignancy. At this point the plan is to repeat the biopsy in about 3 months. Fire Alarm Dispatcher will arrange for repeat FNA left mid lower 3.3 cm thyroid nodule in 3 months * Assessment & Plan Note - Juan R Vega MD - 12/23/2024 2:06 PM EDT Associated Problem(s): Type 2 diabetes mellitus with diabetic polyneuropathy, with long-term current use of insulin ([facility]) Pt here for a f/u DM better controlled Back under the care of Endocrinology last seen 12/14/2024 She is on a regimen of: Tresiba 52 units nightly. Novolog 17 units before breakfast and dinner and 20 units before lunch due to hyperglycemia in the afternoon. Administer 5-10 minutes prior to meals.Trulicity 4.5 mg weekly and Actos 15 mg daily. She is Off Metformin due to worsening renal function Hgb A1c 12/23/2024: Eye exam was last done on: 08/2022 [facility] [place] No retinopathy Microalbumin checked on: 10/18/2024 was: 28 Pt is on an ARB. Foot check not done Pt reports compliance with Asa 81 mg po daily Pt advised to: adhere to diabetic diet check your blood sugars regularly check your feet on a daily basis documented in this encounter Plan of Treatment Upcoming Encounters Date Type Department Care Team (Late st Contact Info) Description 01/25/2025 1:00 PM EDT Office Visit [facility] MEDICINE [address] [place] [address] Juan R Blount MD [address] [place], [place] [phone] documented as of this encounter Visit Diagnoses Diagnosis Type 2 diabetes mellitus with diabetic polyneuropathy, with long-term current use of insulin (CMS/HCC)- Primary Right thyroid nodule Abnormal ECG Nonspecific abnormal electrocardiogram (ECG) (EKG) Malignant neoplasm of right female breast, unspecified estrogen receptor status, unspecified site of breast (CMS/HCC) Polyneuropathy associated with underlying disease (CMS/HCC) Chronic midline low back pain without sciatica Neck pain on right side Preventative health care Routine general medical examination at a health care facility documented in this encounter Additional Health Concerns Assessment Noted Time PHQ-9 Depression Total Score: 3 01/15/20 24 1:38 PM EDT documented as of this encounter Care Teams General Practice Relationship Specialty Start Date End Date Juan R Blount MD [address] [place] [phone] PCP - General Internal Medicine 12/09/13 [facility] 08/23/24 documented as of this encounter
--- NOTE | ~2024-12-27 | US_ITS ---
EXAMINATION/PROCEDURE: 1. ULTRASOUND GUIDED RFID LOCALIZATION BREAST, RIGHT 2. Postprocedure digital mammogram UNILATERAL RIGHT CLINICAL INFORMATION: Patient is status post stereotactic needle core biopsy at outside facility on September 23, 2024 for a right breast finding, with open coil Hydromark clip placement. Pathology results showed invasive ductal carcinoma with tubulolobular features. Patient is here today for RF tag LOCalizer placement. COMPARISON: Right breast stereotactic needle core biopsy on September 23, 2024. Right mammogram/ultrasound workup on September 01, 2024. TECHNIQUE NEEDLE LOC: Proper informed consent is obtained from the patient after discussion of the procedure, potential risks and complications, and alternatives including declining the procedure today. Patient was given an opportunity for questions. The patient appeared to understand. The patient consented to the procedure and signed the consent form. GUIDANCE: Ultrasound APPROACH: Lateral. TARGET: Biopsy-proven right breast mass at 9 o'clock position at 6 cm from the nipple associated with open coil clip. ANESTHESIA: carbonated lidocaine 1%: 10 cc. LOCALIZATION SYSTEM: -[employer] LOCallizer Wire-Free Guidance System with 12g needle applicator. -Length: 7 cm. -RADIOFREQUENCY TAG: ID # [id number] RF Tag ID confirmed with LOCalizer Guidance System prior to placement. The skin is prepped and local anesthesia administered. The needle is positioned and RFID tag deployed. Final images demonstrate the LOCalizer RF tag to reside in the vicinity of the biopsy proven malignancy associated with open coil clip. The patient tolerated the procedure well and had no immediate complications. Dressing placed and home instructions reviewed. US/US Breast RF Tag Device Right IMPRESSION: -Status post right breast RFID localization (tag ID#[id number]). Electronically signed by: Jonathan Bacon MD 12/27/2024 01:00 PM EDT
--- NOTE | ~2024-12-27 | MM_ITS ---
EXAMINATION/PROCEDURE: 1. ULTRASOUND GUIDED RFID LOCALIZATION BREAST, RIGHT 2. Postprocedure digital mammogram UNILATERAL RIGHT CLINICAL INFORMATION: Patient is status post stereotactic needle core biopsy at outside facility on September 23, 2024 for a right breast finding, with open coil Hydromark clip placement. Pathology results showed invasive ductal carcinoma with tubulolobular features. Patient is here today for RF tag LOCalizer placement. COMPARISON: Right breast stereotactic needle core biopsy on September 23, 2024. Right mammogram/ultrasound workup on September 01, 2024. TECHNIQUE NEEDLE LOC: Proper informed consent is obtained from the patient after discussion of the procedure, potential risks and complications, and alternatives including declining the procedure today. Patient was given an opportunity for questions. The patient appeared to understand. The patient consented to the procedure and signed the consent form. GUIDANCE: Ultrasound APPROACH: Lateral. TARGET: Biopsy-proven right breast mass at 9 o'clock position at 6 cm from the nipple associated with open coil clip. ANESTHESIA: carbonated lidocaine 1%: 10 cc. LOCALIZATION SYSTEM: -[employer] LOCallizer Wire-Free Guidance System with 12g needle applicator. -Length: 7 cm. -RADIOFREQUENCY TAG: ID # [id number] RF Tag ID confirmed with LOCalizer Guidance System prior to placement. The skin is prepped and local anesthesia administered. The needle is positioned and RFID tag deployed. Final images demonstrate the LOCalizer RF tag to reside in the vicinity of the biopsy proven malignancy associated with open coil clip. The patient tolerated the procedure well and had no immediate complications. Dressing placed and home instructions reviewed. MM/MM diagnostic mammo unilat RT IMPRESSION: -Status post right breast RFID localization (tag ID#[id number]). Electronically signed by: Jonathan Bacon MD 12/27/2024 01:00 PM EDT
[2024-12-27] MEDS: Lidocaine HCl 1 % 20 ML VIAL 10 ML SUBCUT (11:27)
--- OUTSIDE RECORDS SUMMARY | 2024-12-27 11:38 | XMS_ITS | Encounter Summary ---
Author Organization [employer] Address [address] 7[address] [place] [address] Care Team Providers Care Drop Forger Name Role Phone Juan R Blount MD Primary Care Provide r Reason for Visit * Reason Comments Med Refill Encounter Details Date Type Department Care Team ([facility] st Contact Info) Description 04/16/2024 Refill [facility] PEDS [address] [place] [address] Aggie Melendez MD [address] [place] [address] Primary insomnia Social History Tobacco Use Types [...] Description 01/25/2025 1:00 PM EDT Office Visit [facility] MEDICINE [address] [place] [address] Juan R Blount MD [address] [place] [address] documented as of this encounter Visit Diagnoses Diagnosis Primary insomnia Persistent disorder of initiating or maintaining sleep documented in this encounter Additional Health Concerns Assessment Noted Time PHQ-9 Depression Total Score: 3 01/15/20 24 1:38 PM EDT documented as of this encounter Care Teams Drop Forger Relationship Specialty Start Date End Date Juan R Blount MD [address] [place] [address] PCP - General Internal Medicine 12/09/13 Sh[facility] Sutton Endocrin[facility] 08/23/24 documented as of this encounter
--- OUTSIDE RECORDS SUMMARY | 2024-12-27 11:38 | XMS_ITS | Encounter Summary ---
Author Organization [employer] Address [address] [place] [address] Care Team Providers Care Assembling Motor Builder Name Role Phone Juan R Blount MD Primary Care Provide r Reason for Visit * Reason Comments Med Refill Encounter Details Date Type Department Care Team ([facility] st Contact Info) Description 10/23/2023 Refill [facility] MED & PEDS [address] [place], [place] [phone] Juan R Blount MD [address] [place] [address] Type 2 diabetes mellitus with hyperglycemia, with long-term current use of insulin ([facility]) Social History Tobacco Use Types [...] Description 01/25/2025 1:00 PM EDT Office Visit [facility] MEDICINE [address] [place] [address] Juan R Blount MD [address] [place] [address] documented as of this encounter Visit Diagnoses Diagnosis Type 2 diabetes mellitus with hyperglycemia, with long-term current use of insulin ([facility]) documented in this encounter Additional Health Concerns Assessment Noted Time PHQ-9 Depression Total Score: 8 11/20/19 23 9:41 AM EDT documented as of this encounter Care Teams Assembling Motor Builder Relationship Specialty Start Date End Date Juan R Blount MD [address] [place] [address] PCP - General Internal Medicine 12/09/13 [facility] End[facility]in[facility] 08/23/24 documented as of this encounter
--- OUTSIDE RECORDS SUMMARY | 2024-12-27 11:38 | XMS_ITS | Encounter Summary ---
Author Organization [employer] Address [address] 7[address] [place] [address] Care Team Providers Care Passenger Service Supervisor Name Role Phone Juan R Blount MD Primary Care Provide r Reason for Visit * Reason Comments Med Refill Encounter Details Date Type Department Care Team ([facility] st Contact Info) Description 08/26/2024 Refill [facility] MED [facility] PEDS [address] [place], [place] [phone] Juan R Blount MD [address] [place] [address] Primary insomnia Social History Tobacco Use Types [...] Description 01/25/2025 1:00 PM EDT Office Visit [facility] MEDICINE [address] [place] [address] Juan R Blount MD [address] [place] [address] documented as of this encounter Visit Diagnoses Diagnosis Primary insomnia Persistent disorder of initiating or maintaining sleep documented in this encounter Additional Health Concerns Assessment Noted Time PHQ-9 Depression Total Score: 3 01/15/20 24 1:38 PM EDT documented as of this encounter Care Teams Passenger Service Supervisor Relationship Specialty Start Date End Date Juan R Blount MD [address] [place] [address] PCP - General Internal Medicine 12/09/13 Sh[facility] Sutton Endocrin[facility] 08/23/24 documented as of this encounter
--- OUTSIDE RECORDS SUMMARY | 2024-12-27 11:38 | XMS_ITS | Clinical Summary ---
Author Organization [facility] Address [address] [place] [address] Phone Care Team Providers Care Swat Team Member Name Role Phone Juan R Bey MD Primary Care Provi nalini Encounters Date Type Department Care Team Description 09/27/2024 Telephone [facility] [address] [phone] Shaan Calderón from Last 3 Months Social History Tobacco [...] this topic Medical Devices Implanted Type Area Gastroenterology Manager Device Identifier Shelf Expiration Date Model / Serial / Lot Marker Breast Biopsy 10g Flexible Ti Open Coil Hydromark - [id number] Implanted:Qty: 1 on 09/23/2024 by Christos Warner MD at [facility] Imaging Implants Right: Breast [employer] [id number] 03/10/2027 4010-05- 10-T3 / / [id number] Procedures Procedure Name Priority Date/Time Associated Diagnosis Comments MG MAMMO DIGITAL DIAGNOSTIC POST CLIP RIGHT Routine 09/23/2024 11:17 AM EDT Other abnormal and inconclusive findings on diagnostic imaging of breast from Last 3 Months or Most Recently Relevant to Health Maintenance Results * (ABNORMAL) MG Mammo Digital Diagnostic Clip [...] ? Greatest length of carcinoma: 14 mm Morenci score: Grade 1 Glandular/tubular morphology: 2 Nuclear [...] Signed Date: 09/27/2024 14:26 ET Workstation ID: [id number] Transcribed By: Self Edit Transcribed Date: 09/27/2024 [...] Pathology pending for the right breast. Location: [address], [address] -------- FINAL REPORT -------- Dictated By: Christos Warner Dictated Date: 09/23/2024 13:54 ET Assigned Physician: Christos Warner Reviewed and Electronically Signed By: Christos Warner Signed Date: 09/23/2024 15:10 ET Workstation ID: [id number] Transcribed By: Self Edit Transcribed Date: 09/23/2024 [...] BI PROCEDURES Edited Resu lt - Final from Last 3 Months or Most Recently Relevant to Health Maintenance Insurance [employer] MEDICARE Member Subscriber Plan / Payer (Ef fective 2016-Present) Name:BRUSH, TORRIE Relation to Subscriber:Self Name:Yossi Torrie Payer ID:[id number] Group ID:[id number] Type:Not on file Address: [facility] [address] [address] Care Teams Swat Team Member Relationship Specialty Start Date End Date Juan R Bey MD [address] [place] [phone] PCP - General Internal Medicine 09/03/24
--- OUTSIDE RECORDS SUMMARY | 2024-12-27 11:39 | XMS_ITS | Encounter Summary ---
Author Organization [employer] Address [address] [facility] 7t [place] [address] Care Team Providers Care Electric Motor Assembler And Tester Name Role Phone Juan R Blount MD Primary Care Provide r Encounter Details Date Type Department Care Team (Late Contact Info) Description 10/29/2022 Abstract [facility] MEDICINE [address] [place], [place] [phone] Juan R Blount MD [address] [place] [address] [phone] Social History Tobacco Use Types Packs/Day Years [...] Department Care Team (Late Contact Info) Description 01/25/2025 1:00 PM EDT Office Visit [facility] [address] [place] [address] Juan R Blount MD [address] [place], [place] [phone] documented as of this encounter Visit Diagnoses Not on filedocumented in this encounter Care Teams Electric Motor Assembler And Tester Relationship Specialty Start Date End Date Juan R Blount MD [address] [place] [address] [phone] PCP - General Internal Medicine 12/09/13 [facility] 08/23/24 documented as of this encounter
--- OUTSIDE RECORDS SUMMARY | 2024-12-27 11:39 | XMS_ITS | Clinical Summary ---
Author Organization [facility] Address [address] [place] [address] [place] [address] Phone Care Team Providers Care Asbestos Shingle Roofer Name Role Phone Juan R Eaton MD [...] this topic Insurance [place] Care Teams Asbestos Shingle Roofer Relationship Specialty Start Date End Date Juan R Eaton MD PCP - General Internal Medicine 08/23/20
--- OUTSIDE RECORDS SUMMARY | 2024-12-27 11:39 | XMS_ITS | Encounter Summary ---
Author Organization [employer] Address [address] [facility] [address] 7[address] [place] [address] Care Team Providers Care Strategic Buyer Name Role Phone Juan R Blount MD Primary Care Provide r Encounter Details Date Type Department Care Team (Late st Contact Info) Description 05/16/2023 Abstract [facility] MED[facility]INE [address] [place] [address] Juan R Blount MD [address] [place] [address] Social History Tobacco Use Types Packs/Day Years [...] Description 01/25/2025 1:00 PM EDT Office Visit [facility] [address] [place] [address] Juan R Blount MD [address] [place] [address] documented as of this encounter Visit Diagnoses Not on filedocumented in this encounter Additional Health Concerns Assessment Noted Time PHQ-9 Depression Total Score: 8 11/20/19 23 9:41 AM EDT documented as of this encounter Care Teams Strategic Buyer Relationship Specialty Start Date End Date Juan R Blount MD [address] [place] [address] PCP - General Internal Medicine 12/09/13 [facility] 08/23/24 documented as of this encounter
--- OUTSIDE RECORDS SUMMARY | 2024-12-27 11:39 | XMS_ITS | Encounter Summary ---
Author Organization [employer] Address [address] [facility] 7t [place] [address] Care Team Providers Care Junior Manufacturing Engineer Name Role Phone Juan R Blount MD Primary Care Provide r Encounter Details Date Type Department Care Team (Late st Contact Info) Description 06/11/2022 Orders Only [facility] & PEDS [address] [place] [address] Luz Marina Zaragoza LPN Social History Tobacco [...] Description 01/25/2025 1:00 PM EDT Office Visit [facility] MED[facility]INE [address] [place] [address] Juan R Blount MD 230 [place] [address] documented as of this encounter Visit Diagnoses Not on filedocumented in this encounter Care Teams Junior Manufacturing Engineer Relationship Specialty Start Date End Date Juan R Blount MD [address] [place] [id number] PCP - General Internal Medicine 12/09/13 [facility] 08/23/24 documented as of this encounter
--- OUTSIDE RECORDS SUMMARY | 2024-12-27 11:39 | XMS_ITS | Encounter Summary ---
Author Organization [employer] Address [address] [facility] [address] [place] [address] Care Team Providers Care Forest Patrolman Name Role Phone uJan R Blount MD Primary Care Provide r Reason for Visit * Reason Comments Med Refill Encounter Details Date Type Department Care Team ([facility] st Contact Info) Description 02/04/2024 Refill [facility] MEDICINE [address] [place], [place] [phone] Lewis Carter MD [address] [place], [place] [phone] Social History Tobacco Use Types Packs/Day Years [...] Upcoming Encounters Date Type Department Care Team ([facility] st Contact Info) Description 01/25/2025 1:00 PM EDT Office Visit [facility] MEDICINE [address] [place] [address] Juan R Blount MD [address] [place] [address] documented as of this encounter Visit Diagnoses Not on filedocumented in this encounter Additional Health Concerns Assessment Noted Time PHQ-9 Depression Total Score: 3 01/15/20 24 1:38 PM EDT documented as of this encounter Care Teams Forest Patrolman Relationship Specialty Start Date End Date Juan R Blount MD [address] [place] [address] PCP - General Internal Medicine 12/09/13 [facility] 08/23/24 documented as of this encounter
--- OUTSIDE RECORDS SUMMARY | 2024-12-27 11:39 | XMS_ITS | Encounter Summary ---
Author Organization [employer] Address [address] [facility] 7t [place] [address] Care Team Providers Care Marketing Technologist Name Role Phone Juan R Blount MD Primary Care Provide r Encounter Details Date Type Department Care Team (Late Contact Info) Description 05/16/2022 Orders Only [facility] [address] [place], [place] [phone] Luz Marina Zaragoza LPN Social History Tobacco [...] 1:00 PM EDT Office Visit [facility] [address] [place], [place] [phone] Juan R Blount MD [address] [place], [place] [phone] documented as of this encounter Procedures Procedure Name Priority Date/Time Associated Diagnosis Comments BI MAMMOGRAM DIAGNOSTIC TOMOSYNTHESIS LEFT Routine 05/28/2022 2:58 PM EST documented in this encounter Results * BI Mammogram Diagnostic Tomosynthesis Left (05/28/2022 2:58 PM EST) Anatomical Region Laterality Modality Breast Left Mammography 05/28/2022 2:58 PM EST Narrative 05/28/2022 4:46 PM EST [facility] [address] [place], [place] [address] Mammography Report Signed Patient: Torrie Sy MR#: [id number] : 1955 Acct:[id number] Age/Sex: 67 / F ADM Date: 05/28/22 Loc: [facility] Attending Dr: Juan R Bey MD Ordering Physician: Juan R Bey MD Results: 3.6MProbably Benign Finding - Short 6 M F/U Suggested Date of Service: 05/28/22 Follow Up: 6 Month F/U Procedure(s): MM tomosynthesis diagnostic LT Accession Number(s): [id number] cc: Juan R Bey MD EXAMINATION: MM [...] in OV> 05/28/22 1643 DD/ 1458 TD/TT: Windows Application Packager: SANTOS Procedure Note Donotuseinterpreter, Image - 05/28/2022 [facility] [address] [place] [address] Mammography Report Signed Patient: Torrie SyMR#: [id number] : 5Acct:[id number] Age/Sex: 67 / FADM Date: 05/28/22 Loc: HO.WALLYO Attending Dr: Juan R Bey MD Ordering Physician: Juan R Bey MD Results: 3.6MProbably Benign Finding - Short 6 M F/U Suggested Date of Service: 05/28/22Follow Up: 6 Month F/U Procedure(s): MM tomosynthesis diagnostic LT Accession Number(s): [id number] cc: Juan R Bey MD EXAMINATION: MM [...] in OV> 05/28/22 1643 DD/ 1458 TD/TT: Windows Application Packager: SANTOS [facility] External Provider IMG BI PROCEDURES Edited Result - Final documented in this encounter Visit Diagnoses Not on filedocumented in this encounter Care Teams Marketing Technologist Relationship Specialty Start Date End Date Juan R Blount MD [address] [place] [address] PCP - General Internal Medicine 12/09/13 [facility] 08/23/24 documented as of this encounter
--- OUTSIDE RECORDS SUMMARY | 2024-12-27 11:39 | XMS_ITS | Encounter Summary ---
Author Organization [employer] Address [address] [facility] 7t [place] [address] Care Team Providers Care Welcome Wagon Hostess Name Role Phone Juan R Blount MD Primary Care Provide r Reason for Visit * Reason Comments Med Refill Encounter Details Date Type Department Care Team ([facility] st Contact Info) Description 12/17/2024 Refill [facility] MEDICINE [address] [place], [place] [phone] Juan R Blount MD [address] [place], [place] [phone] Asthma, unspecified asthma severity, unspecified whether complicated, [...] 01/25/2025 1:00 PM EDT Office Visit [facility] MEDICINE [address] [place] [address] Juan R Blount MD [address] [place] [address] documented as of this encounter Visit Diagnoses Diagnosis Asthma, unspecified asthma severity, unspecified whether complicated, unspecified whether persistent documented in this encounter Additional Health Concerns Assessment Noted Time PHQ-9 Depression Total Score: 3 01/15/20 24 1:38 PM EDT documented as of this encounter Care Teams Welcome Wagon Hostess Relationship Specialty Start Date End Date Juan R Blount MD [address] [place] [address] PCP - General Internal Medicine 12/09/13 [facility] 08/23/24 documented as of this encounter
--- OUTSIDE RECORDS SUMMARY | 2024-12-27 11:39 | XMS_ITS | Encounter Summary ---
Author Organization [facility] [employer] Address [address] [facility] [address] 7[address] [place] [address] Care Team Providers Care Die Repairer Stamping Name Role Phone Juan R Blount MD Primary Care Provide r Encounter Details Date Type Department Care Team (Latest Contact Info) Description 12/23/2024 Travel Social History Tobacco Use Types Packs/Day Years [...] 01/25/2025 1:00 PM EDT Office Visit [facility] MEDICINE [address] [place] [address] Juan R Blount MD [address] [place] [address] documented as of this encounter Visit Diagnoses Not on filedocumented in this encounter Additional Health Concerns Assessment Noted Time PHQ-9 Depression Total Score: 3 01/15/20 24 1:38 PM EDT documented as of this encounter Care Teams Die Repairer Stamping Relationship Specialty Start Date End Date Juan R Blount MD [address] [place] [address] PCP - General Internal Medicine 12/09/13 [facility] 08/23/24 documented as of this encounter
--- OUTSIDE RECORDS SUMMARY | 2024-12-27 11:39 | XMS_ITS | Clinical Summary ---
Author Organization [employer] Address [address] [place] [address] Care Team Providers Care Activities Concierge Name Role Phone Juan R Blount MD Primary Care Provide r Allergies Active Allergy Reactions Criticality Noted Date Comments Kurt Inhibitors Cough Acetaminophen Other reaction(s): rash Albuterol Other reaction(s): rash Insulin Other reaction(s): rash Iodine Other reaction(s): rash Latex Other reaction(s): unspecified Medroxyprogesterone Other reaction(s): rash Penicillin V Rash Low 01/07/2024 Medications Continuous Blood Gluc Flatbed Truck Driver (FreeStyle Crystal 2 Bagley) deviceIndications :Type 2 diabetes mellitus with hyperglycemia, with long-term current use of insulin ([facility]) 1 Device before breakfast, before [...] hyperglycemia, with long-term current use of insulin ([facility]) TAKE 1 TABLET BY MOUTH EVERY MORNING 90 tablet 3 Active amLODIPine (Norvasc) 5 MG tabletIndications :Essential hypertension TAKE 1 TABLET BY MOUTH EVERY EVENING 90 tablet Active BD Pen Needle Janene U/F 32G X 4 MM miscIndications:T ype 2 diabetes mellitus without complication, with long-term current use of insulin ([facility]) USE DIRECTED FOUR TIMES DAILY 100 each Active TRUEplus Lancets 33G miscIndications:T ype 2 diabetes mellitus with hyperglycemia ([facility]),FDC (current) use of insulin ([facility]) TEST BLOOD SUGAR FOUR TIMES DAILY 300 each Active glucose blood (FREESTYLE LITE) test stripIndications: Type 2 diabetes mellitus with hyperglycemia ([facility]),intermediate manager (current) use of insulin ([facility]) TEST BLOOD SUGAR FOUR TIMES DAILY 300 strip Active clotrimazole (Lotrimin) 1 % cream APPLY TOPICALLY TWICE DAILY FOR 28 DAYS 30 g Active Dulaglutide 4.5 MG/0.5ML solution auto-injectorIndi cations:Type 2 diabetes mellitus with hyperglycemia, with long-term current use of insulin ([facility]) Inject 4.5 mg under the skin 1 (one) time per week. 2 mL 3 06/20/2 025 Active gabapentin (Neurontin) 800 MG tabletIndications :Type 2 diabetes mellitus with hyperglycemia, with long-term current use of insulin ([facility]) TAKE 1 CAPSULE BY MOUTH THREE TIMES DAILY IN THE MORNING, AT NOON, AND IN THE EVENING 90 tablet 2 025 Active Ventolin HFA 108 (90 Base) [...] TIMES DAILY DIRECTED 15 mL 025 Active atenolol (Tenormin) 25 MG tabletIndications [...] MOUTH EVERY EVENING 90 tablet 025 Active Umeclidinium [place] (Incruse Ellipta) 62.5 MCG/ACT aerosol powderIndications :Wheeze INHALE 1 PUFF BY MOUTH EVERY DAY AT THE SAME TIME RINSE MOUTH AFTER USING 1 Act 1 025 Active montelukast (Singulair) 10 MG tabletIndications :Wheezing TAKE 1 TABLET BY MOUTH EVERY EVENING 90 tablet 1 025 2024 Discontinued atorvastatin (Lipitor) 40 MG tabletIndications :Mixed hyperlipidemia TAKE 1 TABLET BY MOUTH AT BEDTIME 90 tablet 1 025 2024 Discontinued Umeclidinium [place] (Incruse Ellipta) 62.5 MCG/ACT aerosol powderIndications :Wheeze Inhale 1 Act (62.5 mcg) in the morning. AT THE SAME TIME RINSE MOUTH AFTER USING. 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 Preoperative examination 10/12/2024 Assessment & Plan (10/12/2024 [...] factors Abnormal ECG 10/12/2024 Assessment & Plan (12/23/2024 2:11 PM EDT): Images from the original note were not included. During a pre-op pt's ECG shows Vs V2-V3 Referred to Cardiology for cardiac clearance given that she is going under general anesthesia and she is a 69 yr old hypertensive, diabetic and a smoker. Seen by Chemical Cell Changer Dr Sarmiento 10/20/2024 He ordered an ECHO and stress test and was going to clear her for her breast procedure afterwards Assessment & Plan (10/12/2024 3:23 PM EDT): Images from the original note were not included. ECG shows Vs V2-V3 Referred to Cardiology for cardiac clearance given that she is going under general anesthesia and she is a 69 yr old hypertensive, diabetic and a smoker. Right thyroid nodule 01/15/2024 Assessment & Plan (12/23/2024 2:09 PM EDT): While undergoing a Carotid US. [...] rare follicular cells seen in the sample, Norden category 1. She discussed with the patient that nondiagnostic results yield a 5-20% risk of malignancy. At this point the plan is to repeat the biopsy in about 3 months. Metallographer will arrange for repeat FNA left mid lower 3.3 cm thyroid nodule in 3 months Assessment & Plan (01/15/2024 1:34 PM EDT): While undergoing a Carotid US. Pt had an incidental finding 12/27/2023 /US carotid duplex BI IMPRESSION: 3. Right thyroid nodule measuring 3.1 cm. Recommend further attenuation with nonemergent thyroid ultrasound Plan: Thyroid US ordered. Follow up pending result. Hospital discharge follow-up 01/15/2024 Assessment & Plan (01/15/2024 1:39 PM EDT): Patient was admitted to [facility] from 12/26-12/28/2023 For evaluation of intermittent right [...] on right side 01/15/2024 Assessment & Plan (12/23/2024 4:13 PM EDT): Patient with complaints of intermittent right arm weakness x 3 days and severe neck pain. MRI of brain negative for acute stroke. Seen by neurology and Symptoms suggestive of cervical radiculopathy MRI C spine showed:04/08/2024 Multilevel cervical spondylosis C3 C7 more conspicuous at C4-5 C5-6 and C6-7 levels without cord compression, edema and or myelopathy. Assessment & Plan (01/15/2024 3:22 PM EDT): Patient with complaints of intermittent right arm weakness x 3 days and severe neck pain. MRI of brain negative for acute stroke. Seen by neurology and plan for outpatient EMG nerve conduction study. Symptoms suggestive of cervical radiculopathy Plan: Plain films of C-spine, MRI C spine, NCS Malignant neoplasm of right breast 01/15/2024 Assessment & Plan (12/23/2024 3:57 PM EDT): Patient with a newly diagnosed invasive ductal [...] ensure patient understanding. - Zachary from Dr. Mclean s office to coordinate and reschedule preoperative localization procedure (RFID tag placement) and ensure direct communication between patient and surgeon for clarification. Advised patient to follow up and maintain communication with surgical team to avoid delay of lumpectomy. Assessment & Plan (01/15/2024 3:27 PM EDT): [...] the ER MRI Brain 12/28/2023 negative at [facility] Etiology ? Neuropathy, Lumbar radiculopathy Pt also c/o right sided low back pain Plan: Plain films Lumbar, hip and knee NCS LE MR Lumbar spine Follow up after initial testing Chronic midline low back pain without sciatica 0 01/15/2024 Assessment & Plan (12/23/2024 4:12 PM EDT): Patient c/o right sided low back pain associated with right LE weakness . Pt reports multiple falls as a result [...] requested from Neurology She was seen at [facility] 08/2024 and was supposed to be seen at the [facility]. But has not been seen yet Assessment & Plan (01/15/2024 3:28 PM EDT): [...] Preventative health care 11/19/2022 Assessment & Plan (12/23/2024 4:18 PM EDT): Mammogram 09/01/2024: 1. Solid mass versus complicated [...] shot. Dexa scan: 08/31/2012. 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 f/u 3 months Type 2 diabetes mellitus wit h diabetic polyneuropathy, with long-term current use of insulin 06/11/2012 Assessment & Plan (12/23/2024 2:06 PM EDT): Pt here for a f/u DM better controlled Back under the care of Endocrinology last seen 12/14/2024 She is on a regimen of: Tresiba 52 units nightly. Novolog 17 units before breakfast and dinner and 20 units before lunch due to hyperglycemia in the afternoon. Administer 5-10 minutes prior to meals. Trulicity 4.5 mg weekly and Actos 15 mg daily. She is Off Metformin due to worsening renal function Hgb A1c 12/23/2024: Eye exam was last done on: 08/2022 [facility] No retinopathy Microalbumin checked on: 10/18/2024 was: 28 Pt is on an ARB. Foot check not done Pt reports compliance with Asa 81 mg po daily Pt advised to: adhere to diabetic diet check your blood sugars regularly check your feet on a daily basis Assessment & Plan (01/15/2024 3:27 PM EDT): [...] Eye exam was last done on: 08/2022 [facility] No retinopathy Microalbumin checked on: 07/24/2021 was: [...] Encounters Date Type Department Care Team Description 12/24/2024 Telephone [facility] [address] [place] [phone] Juliana Goode RN [facility] Neurology 12/23/2024 1:15 PM EDT Office Visit [facility] [address] [place] [address] Juan R Blount MD Type 2 diabetes mellitus with diabetic polyneuropathy, with long-term current use of insulin (CMS/HCC) (Primary Dx); Right thyroid nodule; Abnormal ECG; Malignant neoplasm of right female breast, unspecified estrogen receptor status, unspecified site of breast (CMS/HCC); Polyneuropathy associated with underlying disease (CMS/HCC); Chronic midline low back pain without sciatica; Neck pain on right side; Preventative health care 12/23/2024 Travel 12/21/2024 [facility]ill [facility] [address] [facility] [place] [address] Juan R Blount MD Wheeze 12/17/2024 Refill [facility] [address] [facility] [place] [address] Juan R Blount MD Asthma, unspecified asthma severity, unspecified whether complicated, unspecified whether persistent 12/14/2024 Orders Only GENERIC EXTERNAL DATA DEPARTMENT Provider, Generic External Data 12/09/2024 Refill [facility] [address] [facility] [place] [address] Juan R Blount MD Mixed hyperlipidemia; Wheezing 12/02/2024 Telephone [facility] [address] [facility] [place] [address] Juan R Blount MD [facility] QUESTIONS 11/12/2024 Refill [facility] [address], [place] [phone] Juan R Blount MD Primary insomnia 11/10/2024 Orders Only GENERIC EXTERNAL DATA DEPARTMENT Provider, Generic External Data 11/10/2024 Refill [facility] [address] [facility] [place] [address] Juan R Blount MD Essential hypertension 11/09/2024 Refill [facility] [address] [facility] [place] [address] Juan R Blount MD 10/28/2024 [facility] [address] [facility] [place] [address] Elham Fuentes MD Asthma, unspecified asthma severity, unspecified whether complicated, unspecified whether persistent 10/19/2024 Telephone [facility] [address] [facility] [place] [phone] Prisca Singh, RN Care Coordination 10/18/2024 Orders Only GENERIC EXTERNAL DATA DEPARTMENT Provider, Generic External Data 10/12/2024 10:30 AM EDT Office Visit [facility] [address] [facility] [place] [address] Juan R Blount MD Preoperative examination (Primary Dx); Abnormal ECG; Type 2 diabetes mellitus without complication, with long-term current use of insulin ([facility]) 10/12/2024 Travel 10/11/2024 Telephone [facility] [address] [place] [address] Juan R Blount MD chart prep 10/10/2024 Refill [facility] [address] [place] [address] Maria Del Carmen Reese MD Wheeze 10/10/2024 Refill [facility] [address] [place] [address] Juan R Blount MD Type 2 diabetes mellitus with hyperglycemia, with long-term current use of insulin ([facility]); Wheeze 10/08/2024 Telephone [facility] [address] [place] [address] Prisca Singh RN Care Coordination 10/07/2024 Refill [facility] [address] [place] [phone] Helena Hernández ANP Type 2 diabetes mellitus with hyperglycemia, with long-term current use of insulin ([facility]) 10/07/2024 Refill [facility] [address] [place] [address] Juan R Blount MD Type 2 diabetes mellitus with hyperglycemia, with long-term current use of insulin ([facility]) 10/06/2024 Refill [facility] [address] [place] [address] Juan R Blount MD Primary insomnia 10/06/2024 Telephone [facility] [address] [place] [address] Juan R Blount MD clearance letter from [...] housing situation today? I have oliver heather 01/13/[address] you li [...] Mass Index 26.83 12/23/2024 2:04 PM EDT Plan of Treatment Upcoming Encounters Date Type Department Care Team (Late st Contact Info) Description 01/25/2025 1:00 PM EDT Office Visit [facility] [address] [place] [address] Juan R Blount MD [address] [place], [place] [phone] Health Maintenance Due Date Last Done Comments [...] Influenza Vaccine (#1) 2024 Diabetes: Hemoglobin A1C 01/12/202510/12/2 025, 01/15/2024, 11/06/2022, Additional history exists Depression Screening 01/14/2025 01/15/2024, 01/15/20 24 SDOH Screening 01/14/2025 01/15/2024 Diagnostic Breast Imaging 03/04/20252024, 09/01/2024, 03/03/2024, Additional history exists Mammogram 03/04/2025 09/01/2024, 0507/2024, 03/03/2024, Additional history exists Alcohol/Substance Use Screening [...] Whole Blood 213(H) 60 - 115 mg/dL [facility] Comment:METER #: [id number] Testing performed in the Endocrinology Department [address] , [address], [place]. 12/14/2024 11:0 0 AM EDT 12/14/2024 11:04 AM EDT us Generic External Data Provider LAB BLOOD ORDERAB LES Final Result [facility] [address] [place] [phone] * Stress test with myocardial perfusion (11/25/2024 9:41 AM EDT) 11/25/2024 9:41 AM EDT Narrative [facility] - 11/28/2024 9:19 AM EDT [place] [address] Nuclear Medicine Report Signed Patient: Torrie Sy MR#: [id number] : 1955 Acct:[id number] Age/Sex: 69 / F ADM Date: 11/25/24 Loc: [facility] Attending Dr: David Sarmiento MD Ordering Physician: David Sarmiento MD Date of Service: 11/25/24 Procedure(s): NM cardiolite stress test Accession Number(s): [id number] cc: Juan R Bey MD; David Sarmiento [...] David Sarmiento MD 11/28/2024 09:15 AM EDT RP Dictated By: David Sarmiento MD Signed By: <Electronically signed by David Sarmiento MD in OV> 11/28/24 0915 DD/ 0941 TD/TT: 11/26/24 1400 Terminal Gauger: Procedure Note Donotuseinterpreter, Image - 11/28/2024 [place] [address] Nuclear Medicine Report Signed Patient: Torrie SyMR#: [id number] : 5Acct:[id number] Age/Sex: 69 / FADM Date: 11/25/24 Loc: HO.CARD Attending Dr: David Sarmiento MD Ordering Physician: David Sarmiento MD Date of Service: 11/25/24 Procedure(s): NM cardiolite stress test Accession Number(s): [id number] cc: Juan R Bey MD; David Sarmiento [...] Sarmiento MD 11/28/2024 09:15 AM EDT Workstation: Shustir Dictated By: David Sarmiento MD Signed By: <Electronically signed by David Sarmiento MD inOV> 11/28/24 0915 DD/ 0941 TD/TT: 11/26/24 1400 Terminal Gauger: [facility] External Provider CV STRE SS PROCEDURES Edited Result - Final [facility] [address] [place] [phone] * Cell Block (11/10/2024 11:26 AM EDT) 11/10/2024 11:2 6 AM EDT 11/10/2024 11:44 AM EDT Narrative [facility] - 11/11/2024 10:45 AM EDT ----- ------- Name: Torrie Sy Age/Sex: 69/F : 1955 [facility]#: [id number] Unit#: [id number] Attend Dr: Eduarda Quintanilla MD Re11/10/24 Status: DEP REF Location: [facility] Disch: ----- ------- SPEC : [id number] RECD: 11/10/24-1144 STATUS: AMY WEBSTER NUM: [id number] HAILEY: 11/10/24-[address] [facility] [address]: Eduarda Quintanilla MD ENTERED: 11/10/24-1212 SP TYPE: Cytology OTHR DR: Juan R Bey MD ORDERED: Cell Block, Fine Ndl Asp Diagnosis Thyroid, left mid lower pole 3.3 cm nodule, fine needle aspiration: Non-diagnostic (Norden category I). COMMENT: Only rare groups of [...] developed and their performance characteristics determined by [facility]. They have not been cleared or approved by the U.S. Food and Drug Administration (FDA). However, the FDA has determined that such clearance or approval is not necessary. This laboratory is certified under the Clinical Laboratory Improvement Amendments of 1988 (CLIA) as qualified to perform high complexity clinical laboratory testing. Copies To: Juan R Bey MD [address] [address] Eduarda Quintanilla MD [facility] Endocrinology [address] [place] [phone] CONTINUED ON NEXT PAGE ----- ------- Name: Torrie Sy Age/Sex: 69/F : 1955 Unit#: [id number] Attend Dr: Eduarda Quintanilla MD Re11/10/24 Status: DEP REF Location: [facility] Disch: ----- ------- SPEC : [id number] RECD: 11/10/24-1144 STATUS: AMY WEBSTER NUM: [id number] [place]ILEY: 11/10/24-[address] [facility] [address]: Eduarda Quintanilla MD ENTERED: 11/10/24-1212 SP TYPE: Cytology OTHR DR: Juan R Bey MD ORDERED: Cell Block, Fine Ndl Asp Copies To: (Continued) ----- ------- Signed (signature on file) Juan Blunt MD 11/11/24 1045 ----- ------- END OF REPORT us Generic External Data Provider LAB CYTOLOGY STEVAN PEREZ Final Result [facility] [address] [place] [phone] * (ABNORMAL) CBC auto differential (10/18/2024 2:56 PM EDT) Pathologist [facility] White Blood Count 14.1(H) 4.8 - 10.8 X10*3/uL [facility] Red Blood Count 4.18(L) 4.20 - 5.50 X10*6/uL [facility] Hemoglobin 12.7 12.0 - 16.0 g/dl [facility] Hematocrit 38.6 37.0 - 47.0 % [facility] Mean Corpuscular Volume 92.3 80.0 - 98.0 fL [facility] Mean Corpuscular Hemoglobin 30.4 27.0 - 33.0 pg [facility] Mean Corpuscular HGB Conc 32.9 31.0 - 35.0 g/dl [facility] Red Cell Distribution Width 13.7 11.0 - 16.0 % [facility] Platelet Count 375 160 - 400 X10*3/uL [facility] Mean Platelet Volume 10.5 9.4 - 12.3 fL [facility] Neutrophils Percent Auto 67.2 45 - 73 % [facility] Imm Gran Pct Auto 0.4 0.0 - 0.4 % [facility] Lymphocytes Percent Auto 25.1 20 - 40 % [facility] Monocytes Percent Auto 4.8 2 - 11 % [facility] Eosinophils Percent Auto 1.6 0 - 4 % [facility] Basophils Percent Auto 0.9 0 - 2 % [facility] NRBC Pct Auto 0.0 0.0 - 0.2 /100WBC [facility] Neutrophils Absolute Auto 9.5(H) 2.0 - 8.3 x10*3/uL [facility] Imm Gran Abs Auto 0.06(H) 0.00 - 0.03 X10*3/uL [facility] Lymphocytes Absolute Auto 3.5 1.2 - 4.9 X10*3/uL [facility] Monocytes Absolute Auto 0.7 0.1 - 1.2 X10*3/uL [facility] Eosinophils Absolute Auto 0.2 0.0 - 0.4 X10*3/uL [facility] Basophils Absolute Auto 0.1 0.0 - 0.2 X10*3/uL [facility] NRBC Abs Auto 0.000 0.0 - 0.012 X10*3/uL [facility] Blood Venous blood specimen / Unknown 10/18/2024 2:56 PM EDT 10/18/2024 2:56 PM EDT us Juan R Vega MD LAB BLOOD ORDERABLES Final Result Performing Organization Address City/State/[facility] Co de Phone Number [facility] [address] [place] [phone] * ALT (10/18/2024 2:56 PM EDT) Alanine Aminotransferase 9 0 - 31 U/L [facility] 10/18/2024 2:56 PM EDT 10/18/2024 2:56 PM EDT us Generic External Data Provider LAB BLOOD ORDERAB LES Final Result Performing Organization Address City/[facility] Co de Phone Number [facility] [address] [place] [phone] * AST (10/18/2024 2:56 PM EDT) Aspartate Amino Transferase 23 5 - 31 U/L [facility] 10/18/2024 2:56 PM EDT 10/18/2024 2:56 PM EDT us Generic External Data Provider LAB BLOOD ORDERAB LES Final Result Performing Organization Address [facility] Co de Phone Number [facility] [address] [place] [phone] * TSH (10/18/2024 2:56 PM EDT) Thyroid Stimulating Hormone 2.14 0.32 - 4.0 uIU/mL [facility] Comment:TSH 3rd Generation ( [facility]) 10/18/2024 2:56 PM EDT 10/18/2024 2:56 PM EDT us Generic External Data Provider LAB BLOOD ORDERAB LES Final Result Performing Organization Address [facility] de Phone Number [facility] [address] [place] [phone] * T4, Free (10/18/2024 2:56 PM EDT) Free T4 (Free Thyroxine) 0.96 0.71 - 1.85 ng/dL [facility] 10/18/2024 2:56 PM EDT 10/18/2024 2:56 PM EDT us Generic External Data Provider LAB BLOOD ORDERAB LES Final Result Performing Organization Address [facility] Co de Phone Number [facility] [address] [place] [phone] * Vitamin B12 (10/18/2024 2:56 PM EDT) Vitamin B12 200 200 - 900 pg/mL [facility] Comment:NORMAL 200-900 PG/ML INDETERMINATE 160-199 PG/ML DEFICIENT < 160 PG/ML 10/18/2024 2:56 PM EDT 10/18/2024 2:56 PM EDT us Generic External Data Provider LAB BLOOD ORDERAB LES Final Result Performing Organization Address [facility] Co de Phone Number [facility] [address] [place] [phone] * (ABNORMAL) Lipid Panel, Standard (10/18/2024 2:56 PM EDT) Triglycerides 186(H) <150 mg/dL [facility] Comment:Desirable Triglyceri de: less than 150 mg/dLBorderline High Triglyceride 150-199 mg/dLHigh Triglyceride: 200-499 mg/dLVery High Triglyceride: greater than or equal to 5OO mg/dL Cholesterol 127 <200 mg/dL [facility] Comment:Desirable Cholestero l: less than 200 mg/dLBorderline High Cholesterol: 200-239 mg/dLHigh Cholesterol: greater than 239 mg/dL LDL Cholesterol Calculated 56 <100 mg/dL [facility] Comment:Desirable LDL: less than 100 mg/dLNear Optimal/Above Optimal LDL: 110- 129 mg/dLBorderline High LDL: 130-159 mg/dLHigh LDL: 160-189 mg/dLVery High LDL: greater than or equal to 190 mg/dL HDL Cholesterol 34(L) >40 mg/dL [facility] Comment:Desirable HDL: great er than 40 mg/dL Note: This HDL assay may give artificially low results in patients with liver disease. 10/18/2024 2:56 PM EDT 10/18/2024 2:56 PM EDT us Generic External Data Provider LAB BLOOD ORDERAB LES Final Result Performing Organization Address City/[facility]/ZIP Co de Phone Number [facility] [address] [place] [phone] * (ABNORMAL) Basic Metabolic Panel (10/18/2024 2:56 PM EDT) Sodium 141 135 - 145 mmol/L [facility] Potassium 4.8 3.3 - 5.1 mmol/L [facility] Chloride 106 96 - 108 mmol/L [facility] Carbon Dioxide 28 22 - 29 mmol/L [facility] Anion Gap 12 12 - 20 [facility] Urea Nitrogen (BUN) 16 9 - 16 mg/dL [facility] Creatinine, Serum 0.85 0.5 - 1.4 mg/dL [facility] Estimated Glomerular Filt Rate >60 [facility] Comment:Chronic Kidney Disea se: Estimated GFR < 60 mL/min/1.98c2Gfrnjy Kidney Disease: Estimated GFR < 15 mL/min/1.73m2 Glucose 148(H) 60 - 115 mg/dL [facility] Calcium 9.5 8.4 - 10.2 mg/dL [facility] Blood Venous blood specimen / Unknown 10/18/2024 2:56 PM EDT 10/18/2024 2:56 PM EDT us Juan R Vega MD LAB BLOOD ORDERABLES Final Result [facility] [address] [place] [address] [phone] * Albumin, Random Urine W/Creatinine (10/18/2024 2:55 PM EDT) Creatinine, Urine 136.42 mg/dL [facility] Microalbumin Urine 28.0 mg/L [facility] Microalbum Creatinine Ratio Ur 20.5 <30 ug/mg cr [facility] Comment:Albumin/Creatinine R atio Reference Ranges: Normal: < 30 ug/mg creatinine Microalbuminuria: 30 - 300 ug/mg creatinineClinical Albuminuria: > 300 ug/mg creatinine 10/18/2024 2:55 PM EDT 10/18/2024 3:23 PM EDT Generic External Data Provider LAB URINE ORDERAB LES Final Result [facility] [address] [facility] [place] [address] [phone] * ECG 12 lead (10/12/2024 3:19 [...] PM EDT Narrative 09/01/2024 2:33 PM EDT [facility] [address] [place] [address] Mammography Report Signed Patient: Torrie Sy MR#: [id number] : 1955 Acct:[id number] Age/Sex: 69 / F ADM Date: 09/01/24 Loc: HO.MAMMO Attending Dr: Juan R Bey MD Ordering Physician: Juan R Bey MD Resu lts: 4Suspicious Finding Date of Service: 09/01/24 Follow Up: Biopsy Recommend ed Procedure(s): MM tomosynthesis diagnostic RT Accession Number(s): [id number] cc: Juan R Bey MD EXAMINATION: MM [...] 09/01/24 1429 DD/ 1322 TD/TT: 09/01/24 1345 Terminal Gauger: Procedure Note Donotuseinterpreter, Image - 09/06/20[facility] [address] [place] [address] Mammography Report Signed Patient: Torrie Sy#: [id number] : 5Acct:[id number] Age/Sex: 69 / FADM Date: 09/01/24 Loc: HO.MAMMO Attending Dr: Juan R Bey MD Ordering Physician: Juan R Bey MDResu lts: 4Suspicious Finding Date of Service: 09/01/24Follow Up: Biopsy Recommend ed Procedure(s): MM tomosynthesis diagnostic RT Accession Number(s): [id number] cc: Juan R Bey MD EXAMINATION: MM [...] 09/01/24 1429 DD/ 1322 TD/TT: 09/01/24 1345 Terminal Gauger: us Juan R Vega MD IMG BI PROCEDURES Mj bernardo Result - Final * Hepatitis Panel, General (02/05/2024 9:25 AM EDT) Hepatitis A IgM Nonreactive Nonreactive [facility] Comment:IgM antibodies to [place] V not detected; does not exclude earlyacute or recovered HAV infection. ~Hepatitis B Surface Antibody NONREACTIVE Nonreactive [facility] Comment:Nonreactive: < 8.00 mIU/mL Hepatitis B Core Antibody Nonreactive Nonreactive [facility] Hepatitis C Antibody Nonreactive Nonreactive [facility] Comment:Antibodies to HCV no t detected; does not exclude early acuteHCV infection. Hepatitis B Surface Ag Negative Negative [facility] 02/05/2024 9:25 AM EDT 02/05/2024 9:25 AM EDT us Generic External Data Provider LAB BLOOD ORDERAB LES Final Result [facility] [address] [place] [address] [phone] from Last 3 Months or Most Recently Relevant to Health Maintenance Insurance [facility] < [address] [place] [place] [id number] Care Teams Activities Concierge Relationship Specialty Start Date End Date Juan R Blount MD [address] [place] [address] PCP - General Internal Medicine 12/09/13 [facility] 08/23/24
--- OUTSIDE RECORDS SUMMARY | 2024-12-27 11:39 | XMS_ITS | Encounter Summary ---
Author Organization [employer] Address [address] [facility] 7t [place] [address] Care Team Providers Care Lay Out And Detail Drafter Name Role Phone Juan R Blount MD Primary Care Provide r Reason for Visit * Reason Comments Med Refill Encounter Details Date Type Department Care Team ([facility] st Contact Info) Description 06/27/2023 Refill [facility] MED & PEDS [address] [place] [address] Aggie Guan MD [address] [place] [address] Primary insomnia Social History Tobacco Use Types [...] Description 01/25/2025 1:00 PM EDT Office Visit [facility] [address] [place] [address] Juan R Blount MD [address] [place] [address] documented as of this encounter Visit Diagnoses Diagnosis Primary insomnia Persistent disorder of initiating or maintaining sleep documented in this encounter Additional Health Concerns Assessment Noted Time PHQ-9 Depression Total Score: 8 11/20/19 23 9:41 AM EDT documented as of this encounter Care Teams Lay Out And Detail Drafter Relationship Specialty Start Date End Date Juan R Blount MD [address] [place] [address] PCP - General Internal Medicine 12/09/13 [facility] 08/23/24 documented as of this encounter
--- OUTSIDE RECORDS SUMMARY | 2024-12-27 11:39 | XMS_ITS | Encounter Summary ---
Author Organization [employer] Address 75 [facility] 7t [place] [address] Care Team Providers Care Corporation Pilot Name Role Phone Juan R Blount MD Primary Care Provide r Encounter Details Date Type Department Care Team (Late Contact Info) Description 05/31/2022 Abstract [facility] MEDICINE [address] [place], [place] [phone] Juan R Blount MD [address] [place] [address] [phone] Social History Tobacco Use Types Packs/Day Years [...] Description 01/25/2025 1:00 PM EDT Office Visit [facility] MEDICINE [address] [place] [address] Juan R Blount MD 230 [place], [place] [phone] documented as of this encounter Visit Diagnoses Not on filedocumented in this encounter Care Teams Corporation Pilot Relationship Specialty Start Date End Date Juan R Blount MD [address] [place] [address] [phone] PCP - General Internal Medicine 12/09/13 [facility] 08/23/24 documented as of this encounter
--- OUTSIDE RECORDS SUMMARY | 2024-12-27 11:39 | XMS_ITS | Encounter Summary ---
Author Organization [employer] Address [address] [facility] [address] 7[address] [place] [address] Care Team Providers Care Town Clerk Name Role Phone Juan R Blount MD Primary Care Provide r Reason for Visit * Reason Comments Med Refill Encounter Details Date Type Department Care Team ([facility] st Contact Info) Description 12/21/2024 Refill [facility] MEDICINE [address] [place], [place] [phone] Juan R Blount MD [address] [place], [place] [phone] Wheeze Social History Tobacco Use Types Packs/Day [...] Upcoming Encounters Date Type Department Care Team ([facility] st Contact Info) Description 01/25/2025 1:00 PM EDT Office Visit [facility] MEDICINE [address] [place] [address] Juan R Blount MD [address] [place] [address] documented as of this encounter Visit Diagnoses Diagnosis Wheeze Wheezing documented in this encounter Additional Health Concerns Assessment Noted Time PHQ-9 Depression Total Score: 3 01/15/20 24 1:38 PM EDT documented as of this encounter Care Teams Town Clerk Relationship Specialty Start Date End Date Juan R Blount MD [address] [place] [address] PCP - General Internal Medicine 12/09/13 [facility] 08/23/24 documented as of this encounter
--- OUTSIDE RECORDS SUMMARY | 2024-12-27 11:39 | XMS_ITS | Encounter Summary ---
Author Organization [employer] Address [address] [facility] [address] 7[address] [place] [address] Care Team Providers Care Pipe Changer Name Role Phone Juan R Blount MD Primary Care Provide r Reason for Visit * Reason Comments Med Refill Encounter Details Date Type Department Care Team ([facility] st Contact Info) Description 06/17/2024 Refill [facility] MEDICINE [address] [place], [place] [phone] Name, MD Fco [address] [place] [address] Mixed hyperlipidemia Social History Tobacco Use Types [...] Description 01/25/2025 1:00 PM EDT Office Visit [facility] MEDICINE [address] [place] [address] Juan R Blount MD [address] [place] [address] documented as of this encounter Visit Diagnoses Diagnosis Mixed hyperlipidemia documented in this encounter Additional Health Concerns Assessment Noted Time PHQ-9 Depression Total Score: 3 01/15/20 24 1:38 PM EDT documented as of this encounter Care Teams Pipe Changer Relationship Specialty Start Date End Date Juan R Blount MD [address] [place] [address] PCP - General Internal Medicine 12/09/13 [facility] 08/23/24 documented as of this encounter
--- OUTSIDE RECORDS SUMMARY | 2024-12-27 11:39 | XMS_ITS | Encounter Summary ---
Author Organization [employer] Address [address] [facility] 7t [place] [address] Care Team Providers Care Doffer Name Role Phone Juan R Blount MD Primary Care Provide r Reason for Visit * Reason Onset Date Comments [facility] Neurology 12/24/2024 Encounter Details Date Type Department Care Team ([facility] st Contact Info) Description 12/24/2024 Telephone [facility] [address] [place] [address] Juliana Goode RN [facility] Neurology Social History Tobacco Use Types Packs/Day Years [...] encounter Miscellaneous Notes * Telephone Encounter - Prisca Singh RN - 12/27/2024 9:45 AM EDT T/C placed to pt regarding below message. Advised pt call neurology [facility] to schedule follow up. Pt agreeable but doesn't have their phone number. Offered to send secure text, pt agreeable. Secure text sent through [employer] with [facility] neurology contact information. * Telephone Encounter - Juliana Goode RN - 12/24/2024 10:45 AM EDT TC placed to [facility] Neurology to inquire on the status of the pt lumbar puncture performed back in April of 2024. The office states that the pt had the testing performed and it was resulted but the ptnever called back for a follow up appt. TC placed to the pt to inform of this information and a VM was left to call back the office. ----- Message from Juan R Vega MD sent at 12/23/2024 4:12 PM EDT ----- Please contact the office of Neurology Dr Cobb. Pt had a Lumbar puncture back in April 2024. Was she seen afterwards ? Last note from him is from February but not sure if she was seen after the LP or if he wrote any notes after he reviewed her LP, please find out and let me know documented in this encounter Plan of Treatment Upcoming Encounters Date Type Department Care Team (Late st Contact Info) Description 01/25/2025 1:00 PM EDT Office Visit [facility] [address] [place] [address] Juan R Blount MD [address] [place] [address] documented as of this encounter Visit Diagnoses Not on filedocumented in this encounter Additional Health Concerns Assessment Noted Time PHQ-9 Depression Total Score: 3 01/15/20 24 1:38 PM EDT documented as of this encounter Care Teams Doffer Relationship Specialty Start Date End Date Juan R Blount MD [address] [place] [address] PCP - General Internal Medicine 12/09/13 [facility] Endocr[facility] 08/23/24 documented as of this encounter
--- OUTSIDE RECORDS SUMMARY | 2024-12-27 11:39 | XMS_ITS | Encounter Summary ---
Author Organization [employer] Address [address] [facility] [address]t [place] [address] Care Team Providers Care Conditioning Machine Operator Name Role Phone Juan R Blount MD Primary Care Provide r Encounter Details Date Type Department Care Team (Late Contact Info) Description 05/29/2022 Orders Only [facility] [address] [place], [place] [phone] Cyndi Sy LPN Social History Tobacco Use [...] Description 01/25/2025 1:00 PM EDT Office Visit [facility] [address] [place] [address] [phone] Juan R Blount MD [address] [place] [address] documented as of this encounter Visit Diagnoses Not on filedocumented in this encounter Care Teams Conditioning Machine Operator Relationship Specialty Start Date End Date Juan R Blount MD [address] [place] [phone] PCP - General Internal Medicine 12/09/13 [facility] End[facility] 08/23/24 documented as of this encounter
--- OUTSIDE RECORDS SUMMARY | 2024-12-27 11:39 | XMS_ITS | Encounter Summary ---
Author Organization [employer] Address [address] [facility] 7t [place] [address] Care Team Providers Care Brush Machine Setter Name Role Phone Juan R Blount MD Primary Care Provide r Reason for Visit * Reason Onset Date Comments [facility]ST[facility] 12/02/2024 Encounter Details Date Type Department Care Team ([facility] st Contact Info) Description 12/02/2024 Telephone [facility] MEDICINE [address] [place], [place] [phone] Juan R Blount MD [address] [place], [place] [phone] [facility] QUESTIONS Social History Tobacco Use Types [...] 12/02/2024 9:21 AM EDT LISA keller with [facility] requesting a call back due [...] Upcoming Encounters Date Type Department Care Team ([facility] st Contact Info) Description 01/25/2025 1:00 PM EDT Office Visit [facility] MEDICINE [address] [place] [address] Juan R Blount MD [address] [place], [place] [phone] documented as of this encounter Visit Diagnoses Not on filedocumented in this encounter Additional Health Concerns Assessment Noted Time PHQ-9 Depression Total Score: 3 01/15/20 24 1:38 PM EDT documented as of this encounter Care Teams Brush Machine Setter Relationship Specialty Start Date End Date Juan R Blount MD [address] [place] [address] PCP - General Internal Medicine 12/09/13 [facility] End[facility] 08/23/24 documented as of this encounter
--- OUTSIDE RECORDS SUMMARY | 2024-12-27 11:39 | XMS_ITS | Encounter Summary ---
Author Organization [employer] Address [address] [facility] 7t [place] [address] Care Team Providers Care Hammer Adjuster Name Role Phone Juan R Blount MD Primary Care Provide r Reason for Visit * Reason Onset Date Comments Med Refill 12/03/2022 Encounter Details Date Type Department Care Team (Late st Contact Info) Description 12/03/2022 Refill [facility] MED[facility]INE [address] [place], [place] [phone] Juan R Blount MD 230 [place] [address] Asthma, unspecified asthma severity, unspecified whether complicated, [...] Description 01/25/2025 1:00 PM EDT Office Visit [facility] [address] [place] [address] Juan R Blount MD [address] [place] [address] documented as of this encounter Visit Diagnoses Diagnosis Asthma, unspecified asthma severity, unspecified whether complicated, unspecified whether persistent documented in this encounter Additional Health Concerns Assessment Noted Time PHQ-9 Depression Total Score: 8 11/20/19 23 9:41 AM EDT documented as of this encounter Care Teams Hammer Adjuster Relationship Specialty Start Date End Date Juan R Blount MD [address] [place] [address] PCP - General Internal Medicine 12/09/13 [facility] Endocrin[facility] 08/23/24 documented as of this encounter
--- OUTSIDE RECORDS SUMMARY | 2024-12-27 11:39 | XMS_ITS | Encounter Summary ---
Author Organization [employer] Address 75 [facility] 7t [place] [address] Care Team Providers Care Machine Shop Repair Technician Name Role Phone Juan R Blount MD Primary Care Provide r Encounter Details Date Type Department Care Team (Late st Contact Info) Description 07/03/2022 Orders Only [facility] CH[facility] MED & PEDS [address] [place] [address] Luz Marina Zaragoza LPN Social History Tobacco [...] Description 01/25/2025 1:00 PM EDT Office Visit [facility] MEDICINE [address] [place] [address] Juan R Blount MD 230 [place] [address] documented as of this encounter Visit Diagnoses Not on filedocumented in this encounter Care Teams Machine Shop Repair Technician Relationship Specialty Start Date End Date Juan R Blount MD [address] [place] [address] PCP - General Internal Medicine 12/09/13 [facility] End[facility] 08/23/24 documented as of this encounter
--- OUTSIDE RECORDS SUMMARY | 2024-12-27 11:39 | XMS_ITS | Patient Health Record ---
Author Organization [facility] Address [address] [place] [address] Care Team Providers Care Stock And Station Agent Name Role Phone Angelito Vega MD, Juan R Primary Care Provide r Caden Berry [phone] Reason For Referral No Information Encounters Encounter Location Date Provider Diagnosis [facility] [address] [place] [address] 05/24/2024 Caden Huffman Plan Of Treatment No Information Insurance Providers Payer Name Payer Address Payer Phone Subscriber Number Group Number Insured Name Patient Relationship to Insured Coverage Start Date Coverage End Date [facility] [address] [place] [phone] [id number] [employer] Self - patient is the insured
--- OUTSIDE RECORDS SUMMARY | 2024-12-27 11:39 | XMS_ITS | Encounter Summary ---
Author Organization [employer] Address [address] [facility] 7t [place] [address] Care Team Providers Care Sharepoint Developer Name Role Phone Juan R Blount MD Primary Care Provide r Reason for Visit * Reason Comments Med Refill Encounter Details Date Type Department Care Team ([facility] st Contact Info) Description 06/27/2023 Refill [facility] CHC MED & PEDS [address] [place] [address] Aggie Guan MD [address] [place] [address] Primary insomnia Social History Tobacco Use Types [...] Description 01/25/2025 1:00 PM EDT Office Visit [facility] MEDICINE 230 [place] [address] Juan R Blount MD [address] [place] [address] documented as of this encounter Visit Diagnoses Diagnosis Primary insomnia Persistent disorder of initiating or maintaining sleep documented in this encounter Additional Health Concerns Assessment Noted Time PHQ-9 Depression Total Score: 8 11/20/19 23 9:41 AM EDT documented as of this encounter Care Teams Sharepoint Developer Relationship Specialty Start Date End Date Juan R Blount MD [address] [place] [address] PCP - General Internal Medicine 12/09/13 [facility] Endocrin[facility] 08/23/24 documented as of this encounter
--- OUTSIDE RECORDS SUMMARY | 2024-12-27 11:39 | XMS_ITS | Encounter Summary ---
Author Organization [email or web address] Address [address] [facility] 7t [place] [address] Care Team Providers Care Product Responsibility Liaison Name Role Phone Juan R Blount MD Primary Care Provide r Reason for Visit * Reason Comments Med Refill Encounter Details Date Type Department Care Team ([facility] st Contact Info) Description 07/29/2023 Refill [facility] CHC MED & PEDS [address] [place] [address] Aggie Guan MD 230 [place] [address] Primary insomnia Social History Tobacco Use Types [...] 01/25/2025 1:00 PM EDT Office Visit [facility] MEDICINE [address] [place] [address] Juan R Blount MD [address] [place] [address] documented as of this encounter Visit Diagnoses Diagnosis Primary insomnia Persistent disorder of initiating or maintaining sleep documented in this encounter Additional Health Concerns Assessment Noted Time PHQ-9 Depression Total Score: 8 11/20/19 23 9:41 AM EDT documented as of this encounter Care Teams Product Responsibility Liaison Relationship Specialty Start Date End Date Juan R Blount MD [address] [place] [address] PCP - General Internal Medicine 12/09/13 [facility] End[facility]in[facility] 08/23/24 documented as of this encounter
== END 2024-12-27 09:58 | disposition home or self-care (01) ==
LOC: HO.MAMMO 09:57
PROVIDERS: PCP Internal Medicine; Visit Provider Surgery
DX: Z85.3 Personal history of malignant neoplasm of breast (principal)
CPT/HCPCS: 19285; 77062; 77065; C1819; J2003

== ENCOUNTER → 2024-12-27 10:00 | Outpatient (BNV) | payer OTHER, SELFPAY | PROVIDERS: PCP Internal Medicine; Visit Provider Radiology Body Imaging | DX: C50.911 Malignant neoplasm of unspecified site of right female breast (principal) | CPT/HCPCS: 19285; 77065 ==

== ENCOUNTER 2024-12-29 06:57 | Day surgery (SDC) | payer OTHER, SELFPAY ==
--- OUTSIDE RECORDS SUMMARY | 2024-05-25 09:00 | XMS_ITS ---
Author Organization [facility] Address [address] [place] [phone] Care Team Providers Care Fire Alarm Repairer Name Role Phone Angelito Vega MD, Juan R Primary Care Provide Caden Jordan [phone] REASON FOR VISIT Patient presents today for a COLON SCREENING Encounters Encounter Location Date Provider Diagnosis [facility] [address] [place] [phone] 05/25/2024 Caden Huffman Plan Of Treatment No Information Progress Notes * MERCEDES BRUSHDOB:[birth year] (69 yo M)Acc No.[id number]:05/25/2024 Progress Notes Patient: MERCEDES PEPE Provider: Rey Huffman MD :1955 A ge:69 Y S ex:Male Date:05/25/2024 Address:[address] [place], [place] [phone] Pcp:Juan R montalvo MD Subjective: * Chief [...] 05/25/2024 Generated for Deirdre dominguez/Bobbi/Chitraitting on: 0 12/14/2024 07:49 AM EDT
--- OUTSIDE RECORDS SUMMARY | 2024-09-28 06:10 | XMS_ITS ---
Author Organization [facility] Address [address] [place] [phone] Care Team Providers Care Roll Edge Machine Operator Name Role Phone Angelito Vega MD, Juan R Primary Care Provide Caden Jordan [phone] REASON FOR VISIT patient presents today for COLON SCREENING Encounters Encounter Location Date Provider Diagnosis [facility] [address] [place] [phone] 09/28/2024 Caden Huffman Plan Of Treatment No Information Progress Notes * MERCEDES BRUSHDOB:[birth year] (69 yo M)Acc No.[id number]:09/28/2024 Progress Notes Patient: MERCEDES PEPE Provider: Rey Huffman MD :1955 A ge:69 Y S ex:Male Date:09/28/2024 Address:[address] [place], [place] [phone] Pcp:Juan R montalvo MD Subjective: * Chief [...] Date: 09/28/2024 Generated for Deirdre dominguez/Bobbi/Chitraitting on: 12/14/2024 07:49 AM EDT
--- OUTSIDE RECORDS SUMMARY | 2024-12-14 07:48 | XMS_ITS | Encounter Summary ---
Author Organization [employer] Address [address] [facility] [address] [place] [address] Care Team Providers Care Embroidery Assistant Name Role Phone Juan R Blount MD Primary Care Provide r Reason for Visit * Reason Comments Med Refill Encounter Details Date Type Department Care Team ([facility] st Contact Info) Description 04/16/2024 Refill [facility] [address] [place] [address] Aggie Melendez MD [address] [place] [address] Primary insomnia Social History Tobacco Use Types [...] Description 12/23/2024 1:15 PM EDT Office Visit [facility] [address] [place] [address] Juan R Blount MD [address] [place] [address] documented as of this encounter Visit Diagnoses Diagnosis Primary insomnia Persistent disorder of initiating or maintaining sleep documented in this encounter Additional Health Concerns Assessment Noted Time PHQ-9 Depression Total Score: 3 01/15/20 24 1:38 PM EDT documented as of this encounter Care Teams Embroidery Assistant Relationship Specialty Start Date End Date Juan R Blount MD [address] [place] [address] PCP - General Internal Medicine 12/09/13 Shasta Sutton Endocrinology 08/23/24 documented as of this encounter
--- OUTSIDE RECORDS SUMMARY | 2024-12-14 07:48 | XMS_ITS | Encounter Summary ---
Author Organization [employer] Address [address] [facility] [address] [place] [address] Care Team Providers Care Hair Blender Name Role Phone Juan R Blount MD Primary Care Provide r Encounter Details Date Type Department Care Team ([facility] Contact Info) Description 05/16/2022 Orders Only [facility]S [address] [place], [place] [phone] Luz Marina Zaragoza LPN Social History Tobacco [...] Encounters Date Type Department Care Team (Late Contact Info) Description 12/23/2024 1:15 PM EDT Office Visit [facility] [address] [place], [place] [phone] Juan R Blount MD [address] [place], [place] [phone] documented as of this encounter Procedures Procedure Name Priority Date/Time Associated Diagnosis Comments BI MAMMOGRAM DIAGNOSTIC TOMOSYNTHESIS LEFT Routine 05/28/2022 2:58 PM EST documented in this encounter Results * BI Mammogram Diagnostic Tomosynthesis Left (05/28/2022 2:58 PM EST) Anatomical Region Laterality Modality Breast Left Mammography 05/28/2022 2:58 PM EST Narrative 05/28/2022 4:46 PM EST [facility] [address] [place], [place] [address] Mammography Report Signed Patient: Torrie Sy MR#: [id number] : 1955 Acct:[id number] Age/Sex: 67 / F ADM Date: 05/28/22 Loc: HO.WALLYO Attending Dr: Juan R Bey MD Ordering Physician: Juan R Bey MD Results: 3.6MProbably Benign Finding - Short 6 M F/U Suggested Date of Service: 05/28/22 Follow Up: 6 Month F/U Procedure(s): MM tomosynthesis diagnostic LT Accession Number(s): [id number] cc: Juan R Bey MD EXAMINATION: MM [...] date for their next mammogram. Dictated By: eRggie Olvera MD Signed By: <Electronically signed by Reggie Olvera MD in OV> 05/28/22 1643 DD/ 1458 TD/TT: Pest Control Applicator: SANTOS Procedure Note Donotuseinterpreter, Image - 05/28/2022 [facility] [address] [place] [address] Mammography Report Signed Patient: Torrie SyMR#: [id number] : 5Acct:[id number] Age/Sex: 67 / FADM Date: 05/28/22 Loc: HO.MAMMO Attending Dr: Juan R Bey MD Ordering Physician: Juan R Bey MD Results: 3.6MProbably Benign Finding - Short 6 M F/U Suggested Date of Service: 05/28/22Follow Up: 6 Month F/U Procedure(s): MM tomosynthesis diagnostic LT Accession Number(s): [id number] cc: Juan R Bey MD EXAMINATION: MM [...] in OV> 05/28/22 1643 DD/ 1458 TD/TT: Pest Control Applicator: SANTOS [facility] External Provider IMG BI PROCEDURES Edited Result - Final documented in this encounter Visit Diagnoses Not on filedocumented in this encounter Care Teams Hair Blender Relationship Specialty Start Date End Date Juan R Blount MD [address] [place] [address] PCP - General Internal Medicine 12/09/13 Shasta Sutton Endocrinology 08/23/24 documented as of this encounter
--- OUTSIDE RECORDS SUMMARY | 2024-12-14 07:48 | XMS_ITS | Clinical Summary ---
Author Organization [facility] Address [address] [place] [phone] Phone Care Team Providers Care Remediation Consultant Name Role Phone Juan R Bey MD Primary Care Provi nalini Encounters Date Type Department Care Team Description 09/27/2024 Telephone [facility] at [address] [phone] Shaan Calderón 09/23/2024 10:01 AM EDT - 09/23/2024 11:59 PM EDT Hospital Encounter [facility] [address] [phone] Other abnormal and inconclusive findings on diagnostic imaging of breast Discharge Disposition: Home or Self Care 09/23/2024 9:56 AM EDT - 09/23/2024 11:59 PM EDT Hospital Encounter [facility] at [address] [phone] Other abnormal and inconclusive findings on diagnostic [...] this topic Medical Devices Implanted Type Area Physical Therapy Resident Device Identifier Shelf Expiration Date Model / Serial / Lot Marker Breast Biopsy 10g Flexible Ti Open Coil Hydromark - [id number] Implanted:Qty: 1 on 09/23/2024 by Christos Warner MD at [facility] Imaging Implants Right: Breast DEVICOR [employer] [id number] 03/10/2027 4010-05- 10-T3 / / [id number] Procedures Procedure Name Priority Date/Time Associated [...] recommended RIGHT Take appropriate action. COMMUNICATION: Dr. Wraner notified the patient of the results and [...] Signed Date: 09/27/2024 14:26 ET Workstation ID: [id number] Transcribed By: Self Edit Transcribed Date: 09/27/2024 [...] Pathology pending for the right breast. Location: [address], [address] -------- FINAL REPORT -------- Dictated By: Christos Warner Dictated Date: 09/23/2024 13:54 ET Assigned Physician: Christos Warner Reviewed and Electronically Signed By: Christos Warner Signed Date: 09/23/2024 15:10 ET Workstation ID: [id number] Transcribed By: Self Edit Transcribed Date: 09/23/2024 [...] Signed Date: 09/27/2024 14:26 ET Workstation ID: [id number] Transcribed By: Self Edit Transcribed Date: 09/27/2024 [...] Pathology pending for the right breast. Location: [address], [address] -------- FINAL REPORT -------- Dictated By: Christos Warner Dictated Date: 09/23/2024 13:54 ET Assigned Physician: Christos Warner Reviewed and Electronically Signed By: Christos Warner Signed Date: 09/23/2024 15:10 ET Workstation ID: [id number] Transcribed By: Self Edit Transcribed Date: 09/23/2024 [...] Addendum This case was sent t o [employer], [address], [place], [place], (CLIA #[id number]) for HER2 Breast studies. Their diagnosis is [...] report on file) 5 5:16 PM EDT [facility] Addendum electronically signed by Dulce [...] invasion: Not identified 5 5:16 PM EDT [facility] Comment Dr. Garcia provided second review for new malignancy. Dr. Warner notified via secure chat on 09/27/24. [facility] Clinical Information Abnormal mammogram, [...] of radiation/chemotherap y: No 5 5:16 PM [facility] Gross Description A. Breast, Right, irregular [...] hours): 10 hours MAIA 5 5:16 PM [facility] Special Stains Because some lobular [...] positive=1-10% positive nuclei, Positive >10% positive nuclei WA: Staining evaluation WA: Positive= >1% positive nuclei. HER2: Staining evaluation [...] ER clone SP1 Cell Jose De Jesus, [place] clone 16 Leica Analyte specific reagents: HER2 clone EP3 [employer] 5 5:16 PM EDT [facility] Disclaimer NOTE: The immunohistochemical tests and in situ hybridization tests were developed and their performance characteristics were determined by [facility]. They have not been [...] fixed and paraffin embedded. 5:16 PM EDT [facility] Tissue Right breast structure / Unknown 09/23/2024 10:50 AM EDT 09/23/2024 11:38 AM EDT Tissue specimen (specimen) Right breast structure / Unknown 09/23/2024 10:50 AM EDT 09/23/2024 11:38 AM EDT us Christos Warner MD LAB PATHOLOGY ORDERABLES Edit ed Result - Final Performing Organization Address City/[facility]/ZIP Co de Phone Number [facility] [address] [place] [address], * HER-2 ALLAN, FISH (09/23/2024 10:50 AM EDT) Scan Result See Scanned Result 10/06/2024 9:55 PM EDT EXTERNAL LAB (NON-INTERFAC ED) Tissue Right breast structure / Unknown 09/23/2024 10:50 AM EDT 09/28/2024 9:40 AM EDT us Christos Warner MD LAB CYTOGENETICS ORDERABLES F inal Result EXTERNAL LAB (NON-INTERFACED) from Last 3 Months Insurance [facility] MEDICARE Member Subscriber Plan / Payer (Ef fective 2016-Present) Name:TORRIE BRUSH Relation to Subscriber:Self Name:Torrie Brush Payer ID:[id number] Group ID:[id number] Type:Not on file Address: [place] [address] [address] [phone] Care Teams Remediation Consultant Relationship Specialty Start Date End Date Juan R Bey MD [address] [place] [id number] PCP - General Internal Medicine 09/03/24
--- OUTSIDE RECORDS SUMMARY | 2024-12-14 07:48 | XMS_ITS | Encounter Summary ---
Author Organization [employer] Address [address] [facility] 7t [place] [address] Care Team Providers Care Market Gardener Name Role Phone Juan R Blount MD Primary Care Provide r Reason for Visit * Reason Comments Med Refill Encounter Details Date Type Department Care Team ([facility] st Contact Info) Description 12/09/2024 Refill [facility] [address] [place] [address] Juan R Blount MD [address] [place], [place] [phone] Mixed hyperlipidemia; Wheezing Social History Tobacco Use Types Packs/Day Years [...] your housing situation today? I have oliver rmoero 01/13/[address] you li [...] Description 12/23/2024 1:15 PM EDT Office Visit [facility] [address] [place] [address] Juan R Blount MD [address] [place] [address] documented as of this encounter Visit Diagnoses Diagnosis Mixed hyperlipidemia Wheezing documented in this encounter Additional Health Concerns Assessment Noted Time PHQ-9 Depression Total Score: 3 01/15/20 24 1:38 PM EDT documented as of this encounter Care Teams Market Gardener Relationship Specialty Start Date End Date Juan R Blount MD [address] [place] [address] PCP - General Internal Medicine 12/09/13 [facility] 08/23/24 documented as of this encounter
--- OUTSIDE RECORDS SUMMARY | 2024-12-14 07:48 | XMS_ITS | Encounter Summary ---
Author Organization [employer] Address [address] [facility] 7t [place] [address] Care Team Providers Care Editor Publications Name Role Phone Juan R Blount MD Primary Care Provide r Reason for Visit * Reason Onset Date Comments [facility] QUESTIONS 12/02/2024 Encounter Details Date Type Department Care Team ([facility] st Contact Info) Description 12/02/2024 Telephone [facility] [address] [place] [address] Juan R Blount MD [address] [place] [address] [facility] QUESTIONS Social History Tobacco Use Types Packs/Day Years [...] encounter Miscellaneous Notes * Telephone Encounter - MICHAEL Dempsey - 12/03/2024 4:20 PM EDT PCP out of office, please let [facility] know will wait for his return * Telephone Encounter - Faviola Astudillo - 12/02/2024 9:21 AM EDT LISA keller with [facility] requesting a call back due to questions they have regarding patient. Questions: If patient has decisional capacity? Does the patient have a health care proxy? If yes, who is the proxy? Does the PCP believe patient needs a higher level of care? Does the PCP have any concerns regarding patient? Caller name : Gisselle ext [phone] documented in this encounter Plan of Treatment Upcoming Encounters Date Type Department Care Team ([facility] st Contact Info) Description 12/23/2024 1:15 PM EDT Office Visit [facility] [address] [place] [address] Juan R Blount MD [address] [place], [place] [phone] documented as of this encounter Visit Diagnoses Not on filedocumented in this encounter Additional Health Concerns Assessment Noted Time PHQ-9 Depression Total Score: 3 01/15/20 24 1:38 PM EDT documented as of this encounter Care Teams Editor Publications Relationship Specialty Start Date End Date Juan R Blount MD [address] [place] [phone] PCP - General Internal Medicine 12/09/13 [facility] 08/23/24 documented as of this encounter
--- OUTSIDE RECORDS SUMMARY | 2024-12-14 07:48 | XMS_ITS | Encounter Summary ---
Author Organization [employer] Address [address] [facility] 7t [place] [address] Care Team Providers Care Pan Reclaim Processor Name Role Phone Juan R Blount MD Primary Care Provide r Reason for Visit * Reason Comments Med Refill Encounter Details Date Type Department Care Team ([facility] st Contact Info) Description 06/17/2024 Refill [facility] [address] [place] [address] Name, MD Fco [address] [place] [address] Mixed hyperlipidemia Social History Tobacco Use Types [...] 1:15 PM EDT Office Visit [facility] [address] [place] [address] Juan R Blount MD [address] [place] [address] documented as of this encounter Visit Diagnoses Diagnosis Mixed hyperlipidemia documented in this encounter Additional Health Concerns Assessment Noted Time PHQ-9 Depression Total Score: 3 01/15/20 24 1:38 PM EDT documented as of this encounter Care Teams Pan Reclaim Processor Relationship Specialty Start Date End Date Juan R Blount MD [address] [place] [address] PCP - General Internal Medicine 12/09/13 [facility] 08/23/24 documented as of this encounter
--- OUTSIDE RECORDS SUMMARY | 2024-12-14 07:48 | XMS_ITS | Encounter Summary ---
Author Organization [employer] Address [address] [facility] 7t [place] [address] Care Team Providers Care Workplace Rehabilitation Officer Name Role Phone Juan R Blount MD Primary Care Provide r Reason for Visit * Reason Comments Med Refill Encounter Details Date Type Department Care Team (Late st Contact Info) Description 08/26/2024 Refill [facility] [address] [place], [place] [phone] Juan R Blount MD [address] [place], [place] [phone] Primary insomnia Social History Tobacco Use Types [...] 12/23/2024 1:15 PM EDT Office Visit [facility] [address] [place] [address] Juan R Blount MD [address] [place] [address] documented as of this encounter Visit Diagnoses Diagnosis Primary insomnia Persistent disorder of initiating or maintaining sleep documented in this encounter Additional Health Concerns Assessment Noted Time PHQ-9 Depression Total Score: 3 01/15/20 24 1:38 PM EDT documented as of this encounter Care Teams Workplace Rehabilitation Officer Relationship Specialty Start Date End Date Juan R Blount MD [address] [place] [address] PCP - General Internal Medicine 12/09/13 [facility] 08/23/24 documented as of this encounter
--- OUTSIDE RECORDS SUMMARY | 2024-12-14 07:48 | XMS_ITS | Encounter Summary ---
Author Organization [employer] Address [address] [facility] 7t [place] [address] Care Team Providers Care Sawmill Manager Name Role Phone Juan R Blount MD Primary Care Provide r Reason for Visit * Reason Comments Med Refill Encounter Details Date Type Department Care Team (Late st Contact Info) Description 10/23/2023 Refill [facility] [address] [place], [place] [phone] Juan R Blount MD [address] [facility] [place], [place] [phone] Type 2 diabetes mellitus with hyperglycemia, with long-term current use of insulin ([facility]) Social History Tobacco Use Types Packs/Day Years [...] Description 12/23/2024 1:15 PM EDT Office Visit [facility] [address] [place] [address] Juan R Blount MD [address] [place] [address] documented as of this encounter Visit Diagnoses Diagnosis Type 2 diabetes mellitus with hyperglycemia, with long-term current use of insulin ([facility]) documented in this encounter Additional Health Concerns Assessment Noted Time PHQ-9 Depression Total Score: 8 11/20/19 23 9:41 AM EDT documented as of this encounter Care Teams Sawmill Manager Relationship Specialty Start Date End Date Juan R Blount MD [address] [place] [address] PCP - General Internal Medicine 12/09/13 [facility] 08/23/24 documented as of this encounter
--- OUTSIDE RECORDS SUMMARY | 2024-12-14 07:49 | XMS_ITS | Encounter Summary ---
Author Organization [employer] Address [address] [place] [address] 7 [place] [address] Care Team Providers Care Brazing Machine Operator Helper Name Role Phone Juan R Blount MD Primary Care Provide r Encounter Details Date Type Department Care Team (Late Contact Info) Description 10/29/2022 Abstract [facility] [address] [place] [phone] Juan R Blount MD [address] [place] [address] [phone] Social History Tobacco Use Types Packs/Day Years [...] Description 12/23/2024 1:15 PM EDT Office Visit [facility] [address] [place] [address] Juan R Blount MD [address] [place] [address] [phone] documented as of this encounter Visit Diagnoses Not on filedocumented in this encounter Care Teams Brazing Machine Operator Helper Relationship Specialty Start Date End Date Juan R Blount MD [address] [place] [phone] PCP - General Internal Medicine 12/09/13 [facility] 08/23/24 documented as of this encounter
--- OUTSIDE RECORDS SUMMARY | 2024-12-14 07:49 | XMS_ITS | Encounter Summary ---
Author Organization [employer] Address [address] [facility] 7t [place] [address] Care Team Providers Care Invasive Cardiovascular Technologist Name Role Phone Juan R Blount MD Primary Care Provide r Reason for Visit * Reason Comments Med Refill Encounter Details Date Type Department Care Team ([facility] st Contact Info) Description 02/04/2024 Refill [facility] [address] [place] [address] Lewis Carter MD [address] [place] [address] Social History Tobacco Use Types Packs/Day Years [...] Description 12/23/2024 1:15 PM EDT Office Visit [facility] [address] [place] [address] Juan R Blount MD [address] [place] [address] documented as of this encounter Visit Diagnoses Not on filedocumented in this encounter Additional Health Concerns Assessment Noted Time PHQ-9 Depression Total Score: 3 01/15/20 24 1:38 PM EDT documented as of this encounter Care Teams Invasive Cardiovascular Technologist Relationship Specialty Start Date End Date Juan R Blount MD [address] [place] [phone] PCP - General Internal Medicine 12/09/13 [facility] 08/23/24 documented as of this encounter
--- OUTSIDE RECORDS SUMMARY | 2024-12-14 07:49 | XMS_ITS | Encounter Summary ---
Author Organization [employer] Address [address] [facility] 7t [place] [address] Care Team Providers Care Cooky Machine Operator Name Role Phone Juan R Blount MD Primary Care Provide r Encounter Details Date Type Department Care Team (Late Contact Info) Description 05/29/2022 Orders Only [facility] [address] [place] [phone] Cyndi Sy LPN Social History Tobacco Use [...] Description 12/23/2024 1:15 PM EDT Office Visit [facility] [address] [place] [phone] Juan R Blount MD [address] [place] [phone] documented as of this encounter Visit Diagnoses Not on filedocumented in this encounter Care Teams Cooky Machine Operator Relationship Specialty Start Date End Date Juan R Blount MD [address] [place] [address], [place] [address] PCP - General Internal Medicine 12/09/13 [facility] 08/23/24 documented as of this encounter
--- OUTSIDE RECORDS SUMMARY | 2024-12-14 07:49 | XMS_ITS | Encounter Summary ---
Author Organization [employer] Address [address] [facility] 7t [place] [address] Care Team Providers Care Account Support Associate Name Role Phone Juan R Blount MD Primary Care Provide r Encounter Details Date Type Department Care Team (Late st Contact Info) Description 05/16/2023 Abstract [facility] [address] [place] [address] Juan R Blount MD [address] [place], [place] [phone] Social History Tobacco Use Types Packs/Day Years [...] Description 12/23/2024 1:15 PM EDT Office Visit [facility] [address] [place] [address] Juan R Blount MD [address] [place] [address] documented as of this encounter Visit Diagnoses Not on filedocumented in this encounter Additional Health Concerns Assessment Noted Time PHQ-9 Depression Total Score: 8 11/20/19 23 9:41 AM EDT documented as of this encounter Care Teams Account Support Associate Relationship Specialty Start Date End Date Juan R Blount MD [address] [place] [address] PCP - General Internal Medicine 12/09/13 [facility] End[facility] 08/23/24 documented as of this encounter
--- OUTSIDE RECORDS SUMMARY | 2024-12-14 07:49 | XMS_ITS | Encounter Summary ---
Author Organization [employer] Address [address] [facility] 7t [place] [address] Care Team Providers Care Pleater Hand Name Role Phone Juan R Blount MD Primary Care Provide r Encounter Details Date Type Department Care Team (Late st Contact Info) Description 06/11/2022 Orders Only [facility] [address] [place], [place] [phone] Luz Marina Zaragoza LPN Social History Tobacco [...] Description 12/23/2024 1:15 PM EDT Office Visit [facility] [address] [place] [address] Juan R Blount MD [address] [place] [phone] documented as of this encounter Visit Diagnoses Not on filedocumented in this encounter Care Teams Pleater Hand Relationship Specialty Start Date End Date Juan R Blount MD [address] [place] [address] PCP - General Internal Medicine 12/09/13 [facility] 08/23/24 documented as of this encounter
--- OUTSIDE RECORDS SUMMARY | 2024-12-14 07:49 | XMS_ITS | Clinical Summary ---
Author Organization [employer] Address [address] [place] [address] Care Team Providers Care Rn House Supervisor Name Role Phone Juan R Blount MD Primary Care Provide r Allergies Active Allergy Reactions Criticality Noted Date Comments Kurt Inhibitors Cough Acetaminophen Other reaction(s): rash Albuterol Other reaction(s): rash Insulin Other reaction(s): rash Iodine Other reaction(s): rash Latex Other reaction(s): unspecified Medroxyprogesterone Other reaction(s): rash Penicillin V Rash Low 01/07/2024 Medications Continuous Blood Gluc Room Service Associate (FreeStyle Crystal 2 [place]) deviceIndications :Type 2 diabetes mellitus with hyperglycemia, with long-term current use of insulin ([facility]) 1 Device before breakfast, before lunch, and before evening meal. 1 each 023 Active Continuous Blood Gluc Sensor (FreeStyle Crystal 2 Sensor) miscIndications:T ype 2 diabetes mellitus with hyperglycemia, with long-term current use of insulin (CMS/HCC) 1 Device before breakfast, before lunch, and before evening meal. 2 each 023 Active econazole nitrate 1 % cream APPLY TOPICALLY TO AFFECTED AREA(S) TWICE DAILY 30 g 1 024 Active hydrocortisone 2.5 % cream APPLY TOPICALLY TO AFFECTED AREA(S) TWICE DAILY 30 g 024 Active alendronate (Fosamax) 70 MG tablet [...] and at bedtime for moderate pain. Active losartan (Cozaar) 100 MG tabletIndications :Primary hypertension TAKE 1 TABLET BY MOUTH EVERY MORNING 90 tablet 3 Active Aspirin Low Dose 81 MG EC tabletIndications :Type 2 diabetes mellitus with hyperglycemia, with long-term current use of insulin ([facility]) TAKE 1 TABLET BY MOUTH EVERY MORNING 90 tablet 3 Active amLODIPine (Norvasc) 5 MG tabletIndications :Essential hypertension TAKE 1 TABLET BY MOUTH EVERY EVENING 90 tablet Active BD Pen Needle Janene U/F 32G X 4 MM miscIndications:T ype 2 diabetes mellitus without complication, with long-term current use of insulin ([facility]) USE DIRECTED FOUR TIMES DAILY 100 each Active TRUEplus Lancets 33G miscIndications:T ype 2 diabetes mellitus with hyperglycemia ([facility]),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 ([facility]) TEST BLOOD SUGAR FOUR TIMES DAILY 300 each Active glucose blood (FREESTYLE LITE) test stripIndications: Type 2 diabetes mellitus with hyperglycemia ([facility]),alf (current) use of insulin ([facility]) TEST BLOOD SUGAR FOUR TIMES DAILY 300 strip Active clotrimazole (Lotrimin) 1 % cream APPLY TOPICALLY TWICE DAILY FOR 28 DAYS 30 g Active Dulaglutide 4.5 MG/0.5ML solution auto-injectorIndi cations:Type 2 diabetes mellitus with hyperglycemia, with long-term current use of insulin ([facility]) Inject 4.5 mg under the skin 1 (one) time per week. 2 mL 3 06/20/2 025 Active gabapentin (Neurontin) 800 MG tabletIndications :Type 2 diabetes mellitus with hyperglycemia, with long-term current use of insulin ([facility]) TAKE 1 CAPSULE BY MOUTH THREE TIMES DAILY IN THE MORNING, AT NOON, AND IN THE EVENING 90 tablet 2 025 Active Umeclidinium [place] (Incruse Ellipta) 62.5 MCG/ACT aerosol powderIndications :Wheeze Inhale 1 Act (62.5 mcg) in the morning. AT THE SAME TIME RINSE MOUTH AFTER USING. 30 each 1 025 Active Ventolin HFA 108 (90 Base) MCG/ACT inhalerIndication s:Asthma, unspecified asthma severity, unspecified whether complicated, unspecified whether persistent INHALE 2 PUFFS BY MOUTH EVERY 4 TO 6 HOURS NEEDED 18 g 1 025 Active Tresiba FlexTouch 200 UNIT/ML injection INJECT 60 UNITS SUBCUTANEOUSLY AT BEDTIME 9 mL 6 025 Active NovoLOG FLEXPEN 100 UNIT/ML pen INJECT 17 UNITS SUBCUTANEOUSLY THREE TIMES DAILY DIRECTED 15 mL 6 025 Active atenolol (Tenormin) 25 MG tabletIndications :Essential hypertension TAKE 1/2 TABLET BY MOUTH TWICE DAILY IN THE MORNING AND EVENING 90 tablet 1 025 Active zolpidem (Ambien) 10 MG tabletIndications :Primary insomnia TAKE 1 TABLET BY MOUTH AT BEDTIME NEEDED FOR SLEEP 30 tablet 025 Active atorvastatin (Lipitor) 40 MG tabletIndications :Mixed hyperlipidemia TAKE 1 TABLET BY MOUTH AT BEDTIME 90 tablet 025 Active montelukast (Singulair) 10 MG tabletIndications :Wheezing TAKE 1 TABLET BY MOUTH EVERY EVENING 90 tablet 025 Active montelukast (Singulair) 10 MG tabletIndications :Wheezing TAKE 1 TABLET BY MOUTH EVERY EVENING 90 tablet 1 025 2024 Discontinued atorvastatin (Lipitor) 40 MG tabletIndications :Mixed hyperlipidemia TAKE 1 TABLET BY MOUTH AT BEDTIME 90 tablet 1 025 2024 Discontinued Active Problems Problem Noted Date Diagnosed Date Preoperative examination 10/12/2024 Assessment & Plan (10/12/2024 11:21 AM EDT): Patient is here for a preoperative exam Patient is scheduled for: right breast lumpectomy with localizer, right axillary sentinel node biopsy On:TBD By: Dr. Guajardo Anesthesia:general After careful review of patient's most recent laboratory tests and EKG: sinus tachy, Vs V2-V3, no previous ECG to compare to Plan: Will refer to cardiology for ECHO and cardiac clearance given her multiple cardiac risk factors Abnormal ECG 10/12/2024 Assessment & Plan (10/12/2024 3:23 PM EDT): Images from the original note were not included. ECG shows Vs V2-V3 Referred to Cardiology for cardiac clearance given that she is going under general anesthesia and she is a 69 yr old hypertensive, diabetic and a smoker. Right thyroid nodule 01/15/2024 Assessment & Plan [...] 1:39 PM EDT): Patient [place] [facility] [place]12[place]28[place]2023 For evaluation of intermittent right [...] the ER MRI Brain 12/28/2023 negative at [facility] [place]tiology ? Neuropathy, Lumbar radiculopathy Pt also [...] Pt is now under the care of Wastewater Analyst Dr Holm last seen 05/11/2019 He ordered [...] Eye exam was last done on: 08/2022 [facility] No retinopathy Microalbumin checked on: 07/24/2021 was: [...] Encounters Date Type Department Care Team Description 12/09/2024 Refill [facility] [address] [place] [phone] Juan R Blount MD Mixed hyperlipidemia; Wheezing 12/02/2024 Telephone [facility] [address] [place] [address] Juan R Blount MD [facility] QUESTIONS 11/12/2024 Refill [facility] [address] [place] [address] Juan R Blount MD Primary insomnia 11/10/2024 Orders Only GENERIC EXTERNAL DATA DEPARTMENT Provider, Generic External Data 11/10/2024 Refill [facility] [address] [place] [address] Juan R Blount MD Essential hypertension 11/09/2024 Refill [facility] [address] [place] [address] Juan R Blount MD 10/28/2024 Refill [facility] [address] [place] [address] Elham Fuentes MD Asthma, unspecified asthma severity, unspecified whether complicated, unspecified whether persistent 10/19/2024 Telephone [facility] [address] [place] [phone] Prisca Singh, RN Care Coordination 10/18/2024 Orders Only GENERIC EXTERNAL DATA DEPARTMENT Provider, Generic External Data 10/12/2024 10:30 AM EDT Office Visit [facility] [address] [place] [phone] Juan R Blount MD Preoperative examination (Primary Dx); Abnormal ECG; Type 2 diabetes mellitus without complication, with long-term current use of insulin ([facility]) 10/12/2024 Travel 10/11/2024 Telephone [facility] [address] [place] [phone] Juan R Blount MD chart prep 10/10/2024 Refill [facility] [address] [place] [address] Maria Del Carmen Reese MD Wheeze 10/10/2024 Refill [facility] [address] [place] [address] Juan R Blount MD Type 2 diabetes mellitus with hyperglycemia, with long-term current use of insulin ([facility]); Wheeze 10/08/2024 Telephone [facility] [address] [place] [address] Prisca Singh, RN Care Coordination 10/07/2024 Refill [facility] [address] [place] [address] Helena Hernández ANP Type 2 diabetes mellitus with hyperglycemia, with long-term current use of insulin ([facility]) 10/07/2024 Refill [facility] [address] [place], [place] [phone] Juan R Blount MD Type 2 diabetes mellitus with hyperglycemia, with long-term current use of insulin ([facility]) 10/06/2024 Refill [facility] [address], [place] [phone] Juan R Blount MD Primary insomnia 10/06/2024 Telephone [facility] [address], [place] [phone] Juan R Blount MD clearance letter 09/14/2024 Orders Only GENERIC EXTERNAL DATA DEPARTMENT Provider, Generic External Data from Last 3 Months Immunizations Immunization Administration [...] Sign Reading Time Taken Comments Blood Pressure 140/80 10/12/2024 10:28 AM EDT no chest pain, palpitations, or SOB Pulse 100 10/12/2024 10:28 AM EDT Temperature 36.2 C (97.1 F) 10/12/2024 10:28 AM EDT Respiratory Rate 20 10/12/2024 10:2 8 AM EDT Oxygen Saturation 98% 10/12/2024 10: 28 AM EDT Inhaled Oxygen Concentration - - Weight 76.2 kg (168 lb) 10/12/2024 10:2 8 AM EDT Height 167.6 cm (5' 6 ) 10/12/2024 10:2 8 AM EDT Body Mass Index 27.12 10/12/2024 10:28 AM EDT Plan of Treatment Upcoming Encounters Date Type Department Care Team (Late st Contact Info) Description 12/23/2024 1:15 PM EDT Office Visit [facility] [address] [place] [address] Juan R Blount MD [address] [place] [address] Health Maintenance Due Date Last Done Comments CT Colonography 1955 Colonoscopy 1955 Colorectal Cancer Screening 1955 FIT DNA/Cologuard 1955 FIT 1955 FOBT 1955 Sigmoidoscopy 1955 Diabetes: Foot Exam 1965 Eye Exam 1965 DTaP/Tdap/Td Vaccines (1 - Tdap) 07/14/2002 07/13/2002 Pneumococcal Vaccine: 50+ Years (2 of 2 - PCV) 02/17/2004 02/16/2003 Zoster Vaccines (1 of 2) 2005 RSV Patients and Patients Aged 60 years or older (1 - Risk 60-74 years 1-dose series) 2015 COVID-19 Vaccine ( season) 2023 04/29/2022, 12/11/2021, 07/11/2021, Additional history exists Influenza Vaccine (#1) 2024 Diabetes: Hemoglobin A1C 01/12/2025 025, 01/15/2024, 11/06/2022, Additional history exists Depression Screening 01/14/2025 01/15/2024, 01/15/20 24 SDOH Screening 01/14/2025 01/15/2024 Diagnostic Breast Imaging 03/04/20252024, 09/01/2024, 03/03/2024, Additional history exists Mammogram 03/04/2025 09/01/2024, 08/19, 03/03/2024, Additional history exists Alcohol/Substance Use Screening 10/12/2025 10/12/2024 Tobacco Screening 10/12/2025 10/12/2024 Diabetes: Urine Protein Screening 10/18/2025 10/18/2024, 02/03/2024, 07/24/2021, Additional history exists Lipid Panel 10/18/2025 10/18/2024, 04/0 08/2021, 07/07/2020 Hepatitis C Screening Completed 02/05/2024 HIB Vaccines [...] Procedure Name Priority Date/Time Associated Diagnosis Comments STRESS TEST WITH MYOCARDIAL PERFUSION Routine 11/25/2024 9:41 AM EDT CELL BLOCK Routine 11/10/2024 11:26 AM EDT VITAMIN B12 Routine 10/18/2024 2:56 PM EDT T4, FREE Routine 10/18/2024 2:56 PM EDT TSH Routine 10/18/2024 2:56 PM EDT LIPID PANEL, STANDARD Routine 10/18/2024 2:56 PM EDT ALT Routine 10/18/2024 2:56 PM EDT AST Routine 10/18/2024 2:56 PM EDT CBC WITH AUTO DIFFERENTIAL Routine 10/18/2024 2:56 PM EDT Preoperative examination BASIC METABOLIC PANEL Routine 10/18/2024 2:56 PM EDT Preoperative examination ALBUMIN, RANDOM URINE W/CREATININE Routine 10/18/2024 2:55 PM EDT ECG 12-LEAD Routine 10/12/2024 3:19 PM EDT Preoperative examination POCT GLYCATED HEMOGLOBIN, TOTAL Routine 10/12/2024 11:09 AM EDT Type 2 diabetes mellitus without complication, with long-term current use of insulin ([facility]) POCT GLUCOSE Routine 10/12/2024 10:36 AM EDT Type 2 diabetes mellitus without complication, with long-term current use of insulin ([facility]) GLUCOSE, WHOLE BLOOD Routine 09/14/2024 2:12 PM EDT BI MAMMOGRAM DIAGNOSTIC TOMOSYNTHESIS RIGHT Routine 09/01/2024 1:22 PM EDT HEPATITIS PANEL, GENERAL Routine 02/05/2024 9:25 AM EDT from Last 3 Months or Most Recently Relevant to Health Maintenance Results * Stress test with myocardial perfusion (11/25/2024 9:41 AM EDT) 11/25/2024 9:41 AM EDT Narrative [facility] - 11/28/2024 9:19 AM EDT [place] [phone] Nuclear Medicine Report Signed Patient: Torrie Sy MR#: [id number] : 1955 Acct:[id number] Age/Sex: 69 / F ADM Date: 11/25/24 Loc: HO.CARD Attending Dr: David Sarmiento MD Ordering Physician: David Sarmiento MD Date of Service: 11/25/24 Procedure(s): NM cardiolite stress test Accession Number(s): [id number] cc: Juan R Bey MD; David Sarmiento MD Lexiscan Myocardial perfusion study Indication: Abnormal EKG Technique: The patient was brought in for a Lexiscan perfusion study on 11/25/2024 and was injected 0.4 mg of Lexiscan intravenously. Within a minute of this injection 30 mCi of sestamibi was given intravenously. Images were obtained using the SPECT gamma camera interlaced with the gating device. Images were obtained in supine position. Resting perfusion study was performed on 11/26/2024. Patient was administered 30 mCi of sestamibi intravenously at rest. Images were then obtained in supine position. Total DLP 120 mGy-cm. Images were processed with the software and compared side to side in short axis, horizontal long axis and vertical long axis views. Findings: Raw aquisition reviewed. The stress perfusion study showed no significant perfusion abnormality. Both uncorrected as well as CT attenuation corrected images were reviewed. The gated study shows normal LV systolic function with calculated LVEF of 65%. LV cavity is normal in size. The gated study shows normal wall thickening and contraction of segments. Resting study shows no significant perfusion abnormality. Gating at rest reveals normal wall motion with ejection fraction at 69%. The findings are consistent with no clear reversible or fixed perfusion abnormality. NM/NM cardiolite stress test Impression: 1. Myocardial perfusion imaging study shows normal myocardial perfusion. 2. Gated LVEF is 65% during stress and 69% during rest. 3. Transient ischemic dilatation not present. EKG component of the test reported separately. Electronically signed by: David Sarmiento MD 11/28/2024 09:15 AM EDT Dictated By: David Sarmiento MD Signed By: <Electronically signed by David Sarmiento MD in OV> 11/28/24 0915 DD/ 0941 TD/TT: 11/26/24 1400 Jack Winder: Procedure Note Donotuseinterpreter, Image - 11/28/[address] [address] Nuclear Medicine Report Signed Patient: Torrie SyMR#: [id number] : 5Acct:[id number] Age/Sex: 69 / FADM Date: 11/25/24 Loc: HO.CARD Attending Dr: David Sarmiento MD Ordering Physician: David Sarmiento MD Date of Service: 11/25/24 Procedure(s): NM cardiolite stress test Accession Number(s): [id number] cc: Juan R Bey MD; David Sarmiento MD Lexiscan Myocardial perfusion study Indication: Abnormal EKG Technique: The patient was brought in for a Lexiscan perfusion study on 11/25/2024 and was injected 0.4 mg of Lexiscan intravenously. Within a minute of this injection 30 mCi of sestamibi was given intravenously. Images were obtained using the SPECT gamma camera interlaced with the gating device. Images were obtained in supine position. Resting perfusion study was performed on 11/26/2024. Patient was administered 30 mCi of sestamibi intravenously at rest. Images were then obtained in supine position. Total DLP 120 mGy-cm. Images were processed with the software and compared side to side in short axis, horizontal long axis and vertical long axis views. Findings: Raw aquisition reviewed. The stress perfusion study showed no significant perfusion abnormality. Both uncorrected as well as CT attenuation corrected images were reviewed. The gated study shows normal LV systolic function with calculated LVEF of 65%. LV cavity is normal in size. The gated study shows normal wall thickening and contraction of segments. Resting study shows no significant perfusion abnormality. Gating at rest reveals normal wall motion with ejection fraction at 69%. The findings are consistent with no clear reversible or fixed perfusion abnormality. MN/MN cardiolite stress test Impression: 1. Myocardial perfusion imaging study shows normal myocardial perfusion. 2. Gated LVEF is 65% during stress and 69% during rest. 3. Transient ischemic dilatation not present. EKG component of the test reported separately. Electronically signed by: David Sarmiento MD 11/28/2024 09:15 AM EDT Dictated By: David Sarmiento MD Signed By: <Electronically signed by David Sramiento MD inOV> 11/28/24 0915 DD/ 0941 TD/TT: 11/26/24 1400 Jack Winder: [facility] External Provider CV STRE SS PROCEDURES Edited Result - Final [facility] [address] [place] [address] * Cell Block (11/10/2024 11:26 AM EDT) 11/10/2024 11:2 6 AM EDT 11/10/2024 11:44 AM EDT Narrative [facility] - 11/11/2024 10:45 AM EDT ----- ------- Name: Winnesita Age/Sex: 69/F : 1955 Unit#: [id number] Attend Dr: Eduarda Quintanilla MD Re11/10/24 Status: DEP REF Location: [facility] Disch: ----- ------- SPEC : [id number] RECD: 11/10/24-114 STATUS: SOUT REQ NUM: [id number] [place]: 11/10/24-1126 [facility] DR: Eduarda Quintanilla MD ENTERED: 11/10/24-1212 SP TYPE: Cytology OT DR: Juan R Bey MD ORDERED: Cell Block, Fine Ndl Asp Diagnosis Thyroid, left mid lower pole 3.3 cm nodule, fine needle aspiration: Non-diagnostic (Gilead category I). COMMENT: Only rare groups of follicular epithelial cells in a macrofollicular arrangement are seen, insufficient for diagnostic purposes. The cell block has blood and rare colloid. Clinical History Left mid lower 3.3cm thyroid nodule FNA biopsy Material Received Left mid lower 3.3cm thyroid nodule FNA biopsy Gross Description Received is 30 cc of cloudy pink fluid from which a ThinPrep slide and cell block are prepared; a repeat ThinPrep slide is prepared after initial slide review. IHC S/NG Disclaimer NOTE: Unless otherwise stated, all tissue is formalin-fixed and paraffin-embedded. Some or all of the immunohistochemical tests reported herein may have been developed and their performance characteristics determined by [facility]. They have not been cleared or approved by the U.S. Food and Drug Administration (FDA). However, the FDA has determined that such clearance or approval is not necessary. This laboratory is certified under the Clinical Laboratory Improvement Amendments of 1988 (CLIA) as qualified to perform high complexity clinical laboratory testing. Copies To: [place] [address] Eduarda Quintanilla MD [facility] [place]ocrinology [address] [place] [address] CONTINUED ON NEXT PAGE ----- ------- Name: Torrie Sy Age/Sex: 69/F : 1955 Unit#: [id number] Attend Dr: Eduarda Quintanilla MD Re11/10/24 Status: DEP REF Location: [facility] Disch: ----- ------- SPEC : [id number] RECD: 11/10/24 STATUS: AMY WEBSTER NUM: [id number] [place]: 11/10/246 [facility] DR: Eduarda Quintanilla MD ENTERED: 11/10/24-1212 SP TYPE: Cytology OTHR DR: Juan R Bey MD ORDERED: Cell Block, Fine Ndl Asp Copies To: (Continued) [email or web address] ----- ------- Signed (signature on file) Juan Blunt MD 11/11/24 1045 ----- ------- END OF REPORT us Generic External Data Provider LAB CYTOLOGY STEVAN PEREZ Final Result [facility] [address], [place] [phone] * (ABNORMAL) CBC auto differential (10/18/2024 2:56 PM EDT) White Blood Count 14.1(H) 4.8 - 10.8 X10*3/uL [facility] Red Blood Count 4.18(L) 4.20 - 5.50 X10*6/uL [facility] Hemoglobin 12.7 12.0 - 16.0 g/dl [facility] Hematocrit 38.6 37.0 - 47.0 % [facility] Mean Corpuscular Volume 92.3 80.0 - 98.0 fL [facility] Mean Corpuscular Hemoglobin 30.4 27.0 - 33.0 pg [facility] Mean Corpuscular HGB Conc 32.9 31.0 - 35.0 g/dl [facility] Red Cell Distribution Width 13.7 11.0 - 16.0 % [facility] Platelet Count 375 160 - 400 X10*3/uL [facility] Mean Platelet Volume 10.5 9.4 - 12.3 fL [facility] Neutrophils Percent Auto 67.2 45 - 73 % [facility] Imm Gran Pct Auto 0.4 0.0 - 0.4 % [facility] Lymphocytes Percent Auto 25.1 20 - 40 % [facility] Monocytes Percent Auto 4.8 2 - 11 % [facility] Eosinophils Percent Auto 1.6 0 - 4 % [facility] Basophils Percent Auto 0.9 0 - 2 % [facility] NRBC Pct Auto 0.0 0.0 - 0.2 /100WBC [facility] Neutrophils Absolute Auto 9.5(H) 2.0 - 8.3 x10*3/uL [facility] Imm Gran Abs Auto 0.06(H) 0.00 - 0.03 X10*3/uL [facility] Lymphocytes Absolute Auto 3.5 1.2 - 4.9 X10*3/uL [facility] Monocytes Absolute Auto 0.7 0.1 - 1.2 X10*3/uL [facility] Eosinophils Absolute Auto 0.2 0.0 - 0.4 X10*3/uL [facility] Basophils Absolute Auto 0.1 0.0 - 0.2 X10*3/uL [facility] NRBC Abs Auto 0.000 0.0 - 0.012 X10*3/uL [facility] Blood Venous blood specimen / Unknown 10/18/2024 2:56 PM EDT 10/18/2024 2:56 PM EDT us Juan R Vega MD LAB BLOOD ORDERABLES Final Result Performing Organization Address [facility]/ZIP Co de Phone Number [facility] [address] [place] [phone] * ALT (10/18/2024 2:56 PM EDT) Alanine Aminotransferase 9 0 - 31 U/L [facility] 10/18/2024 2:56 PM EDT 10/18/2024 2:56 PM EDT us Generic External Data Provider LAB BLOOD ORDERAB LES Final Result Performing Organization Address [facility] Co de Phone Number [facility] [address] [place] [phone] * AST (10/18/2024 2:56 PM EDT) Aspartate Amino Transferase 23 5 - 31 U/L [facility] 10/18/2024 2:56 PM EDT 10/18/2024 2:56 PM EDT us Generic External Data Provider LAB BLOOD ORDERAB LES Final Result Performing Organization Address [facility] Co de Phone Number [facility] [address] [place] [phone] * TSH (10/18/2024 2:56 PM EDT) Thyroid Stimulating Hormone 2.14 0.32 - 4.0 uIU/mL [facility] Comment:TSH 3rd Generation ( [facility]) 10/18/2024 2:56 PM EDT 10/18/2024 2:56 PM EDT us Generic External Data Provider LAB BLOOD ORDERAB LES Final Result Performing Organization Address [facility]/ZIP Co de Phone Number [facility] [address] [place] [phone] * T4, Free (10/18/2024 2:56 PM EDT) Free T4 (Free Thyroxine) 0.96 0.71 - 1.85 ng/dL [facility] 10/18/2024 2:56 PM EDT 10/18/2024 2:56 PM EDT Generic External Data Provider LAB BLOOD ORDERAB LES Final Result Performing Organization Address [facility] Co de Phone Number [facility] [address] [place] [phone] * Vitamin B12 (10/18/2024 2:56 PM EDT) [facility] Vitamin B12 200 200 - 900 pg/mL [facility] Comment:NORMAL 200-900 PG/ML INDETERMINATE 160-199 PG/ML DEFICIENT < 160 PG/ML 10/18/2024 2:56 PM EDT 10/18/2024 2:56 PM EDT Generic External Data Provider LAB BLOOD ORDERAB LES Final Result Performing Organization Address [facility]/ZIP Co de Phone Number [facility] [address] [place] [phone] * (ABNORMAL) Lipid Panel, Standard (10/18/2024 2:56 PM EDT) Pathologist [facility] Triglycerides 186(H) <150 mg/dL [facility] Comment:Desirable Triglyceri de: less than 150 mg/dLBorderline High Triglyceride 150-199 mg/dLHigh Triglyceride: 200-499 mg/dLVery High Triglyceride: greater than or equal to 5OO mg/dL Cholesterol 127 <200 mg/dL [facility] Comment:Desirable Cholestero l: less than 200 mg/dLBorderline High Cholesterol: 200-239 mg/dLHigh Cholesterol: greater than 239 mg/dL LDL Cholesterol Calculated 56 <100 mg/dL [facility] Comment:Desirable LDL: less than 100 mg/dLNear Optimal/Above Optimal LDL: 110- 129 mg/dLBorderline High LDL: 130-159 mg/dLHigh LDL: 160-189 mg/dLVery High LDL: greater than or equal to 190 mg/dL HDL Cholesterol 34(L) >40 mg/dL [facility] Comment:Desirable HDL: great er than 40 mg/dL Note: This HDL assay may give artificially low results in patients with liver disease. 10/18/2024 2:56 PM EDT 10/18/2024 2:56 PM EDT us Generic External Data Provider LAB BLOOD ORDERAB LES Final Result [facility] [address] [place] [phone] * (ABNORMAL) Basic Metabolic Panel (10/18/2024 2:56 PM EDT) Sodium 141 135 - 145 mmol/L [facility] Potassium 4.8 3.3 - 5.1 mmol/L [facility] Chloride 106 96 - 108 mmol/L [facility] Carbon Dioxide 28 22 - 29 mmol/L [facility] Anion Gap 12 12 - 20 [facility] Urea Nitrogen (BUN) 16 9 - 16 mg/dL [facility] Creatinine, Serum 0.85 0.5 - 1.4 mg/dL [facility] Estimated Glomerular Filt Rate >60 [facility] Comment:Chronic Kidney Disea se: Estimated GFR < 60 mL/min/1.30o2Kthckh Kidney Disease: Estimated GFR < 15 mL/min/1.73m2 Glucose 148(H) 60 - 115 mg/dL [facility] Calcium 9.5 8.4 - 10.2 mg/dL [facility] Blood Venous blood specimen / Unknown 10/18/2024 2:56 PM EDT 10/18/2024 2:56 PM EDT Juan R Vega MD LAB BLOOD ORDERABLES Final Result Performing Organization Address [facility] Co de Phone Number [facility] [address] [place] [phone] * Albumin, Random Urine W/Creatinine (10/18/2024 2:55 PM EDT) Creatinine, Urine 136.42 mg/dL [facility] Microalbumin Urine 28.0 mg/L [facility] Microalbum Creatinine Ratio Ur 20.5 <30 ug/mg cr [facility] Comment:Albumin/Creatinine R atio Reference Ranges: Normal: < 30 ug/mg creatinine Microalbuminuria: 30 - 300 ug/mg creatinineClinical Albuminuria: > 300 ug/mg creatinine 10/18/2024 2:55 PM EDT 10/18/2024 3:23 PM EDT Generic External Data Provider LAB URINE ORDERAB LES Final Result Performing Organization Address [facility] Co de Phone Number [facility] [address] [place] [phone] * ECG 12 lead (10/12/2024 3:19 PM EDT) Narrative Juan R Blount MD - 10/12/2024 3:19 PM EDT Sinus tachycardia, Vs V2-V3 Juan R Vega MD ECG ORDERABLES Final Result * (ABNORMAL) POCT HGB A1C (10/12/2024 11:09 AM EDT) Hemoglobin A1C 7.2(A) 4.0 - 6.0 % QC Media Lot # [id number] Lot# Expiration Date [id number] Blood 10/12/2024 11:0 9 AM EDT Juan R Vega MD POINT OF CARE TEST EN TER/EDIT ORDERABLES Final Result * POCT Glucose (10/12/2024 10:36 AM EDT) Glucose Blood, POC 188 60 - 200 mg/dL QC Media Lot # [id number] Lot# Expiration Date Blood Capillary blood specimen / Unknown 10/12/2024 10:36 AM EDT us Juan R Vega MD POINT OF CARE TEST EN TER/EDIT ORDERABLES Final Result * (ABNORMAL) Glucose, Whole Blood (09/14/2024 2:12 PM EDT) Glucose, Whole Blood 170(H) 60 - 115 mg/dL [facility] Comment:METER #: [id number] 5Testing performed in the Endocrinology Department [address] , [address], [place]. 09/14/2024 2:12 PM EDT 09/14/2024 2:16 PM EDT Generic External Data Provider LAB BLOOD ORDERAB LES Final Result [facility] [address] [place] [phone] * BI Mammogram Diagnostic Tomosynthesis Right (09/01/2024 1:22 PM EDT) Anatomical Region Laterality Modality Breast Right Mammography 09/01/2024 1:22 PM EDT Narrative 09/01/2024 2:33 PM EDT [facility] [address] [place] [address] Mammography Report Signed Patient: Torrie Sy MR#: [id number] : 1955 Acct:[id number] Age/Sex: 69 / F ADM Date: 09/01/24 Loc: HO.MAMMO Attending Dr: Juan R Bey MD Ordering Physician: Juan R Bey MD Resu lts: 4Suspicious Finding Date of Service: 09/01/24 Follow Up: Biopsy Recommend ed Procedure(s): MM tomosynthesis diagnostic RT Accession Number(s): [id number] cc: Juan R Bey MD EXAMINATION: MM [...] 09/01/24 1429 DD/ 1322 TD/TT: 09/01/24 1345 Jack Winder: Procedure Note Donotuseinterpreter, Image - 09/06/2024 [place] [facility] [address] [place] [address] Mammography Report Signed Patient: Torrie Sy#: [id number] : 5Acct:[id number] Age/Sex: 69 / FADM Date: 09/01/24 Loc: HO.WALLYO Attending Dr: Juan R Bey MD Ordering Physician: Juan R Bey MDResu lts: 4Suspicious Finding Date of Service: 09/01/24Follow Up: Biopsy Recommend ed Procedure(s): MM tomosynthesis diagnostic RT Accession Number(s): [id number] cc: Juan R Bey MD EXAMINATION: MM [...] 09/01/24 1429 DD/ 1322 TD/TT: 09/01/24 1345 Jack Winder: Juan R Vega MD IMG BI PROCEDURES Mj bernardo Result - Final * Hepatitis Panel, General (02/05/2024 9:25 AM EDT) Hepatitis A IgM Nonreactive Nonreactive [facility] Comment:IgM antibodies to [place] V not detected; does not exclude earlyacute or recovered HAV infection. ~Hepatitis B Surface Antibody NONREACTIVE Nonreactive [facility] Comment:Nonreactive: < 8.00 mIU/mL Hepatitis B Core Antibody Nonreactive Nonreactive [facility] Hepatitis C Antibody Nonreactive Nonreactive [facility] Comment:Antibodies to HCV no t detected; does not exclude early acuteHCV infection. Hepatitis B Surface Ag Negative Negative [facility] 02/05/2024 9:25 AM EDT 02/05/2024 9:25 AM EDT us Generic External Data Provider LAB BLOOD ORDERAB LES Final Result [facility] [address] [place] [phone] from Last 3 Months or Most Recently Relevant to Health Maintenance Insurance * Guarantor: Torrie Sy Account Type Relation to Patient Date of Phone Billing Address Personal/Family Self [address] [place] [address] [facility] < 65 [place] [id number] Care Teams Rn House Supervisor Relationship Specialty Start Date End Date Juan R Blount MD [address] [place] [address] PCP - General Internal Medicine 12/09/13 Sh[facility] Sutton Endocrinology 08/23/24
--- OUTSIDE RECORDS SUMMARY | 2024-12-14 07:49 | XMS_ITS | Encounter Summary ---
Author Organization [employer] Address [address] [facility] 7t [place] [address] Care Team Providers Care Angiographer Name Role Phone Juan R Blount MD Primary Care Provide r Reason for Visit * Reason Comments Med Refill Encounter Details Date Type Department Care Team (Late st Contact Info) Description 07/29/2023 Refill [facility] & PEDS [address] [place] [address] Aggie Guan MD [address] [place] [address] Primary insomnia Social History Tobacco Use Types [...] Description 12/23/2024 1:15 PM EDT Office Visit [facility] MED[facility]INE [address] [place] [address] Juan R Blount MD [address] [place] [address] documented as of this encounter Visit Diagnoses Diagnosis Primary insomnia Persistent disorder of initiating or maintaining sleep documented in this encounter Additional Health Concerns Assessment Noted Time PHQ-9 Depression Total Score: 8 11/20/19 23 9:41 AM EDT documented as of this encounter Care Teams Angiographer Relationship Specialty Start Date End Date Juan R Blount MD [address] [place] [address] PCP - General Internal Medicine 12/09/13 Sh[facility] Sutton Endocrin[facility] 08/23/24 documented as of this encounter
--- OUTSIDE RECORDS SUMMARY | 2024-12-14 07:49 | XMS_ITS | Patient Health Record ---
Author Organization [facility] Address [address] [place] [address] Care Team Providers Care Skiver Box Toe Name Role Phone Angelito Vega MD, Juan R Primary Care Provide r Caden Berry [phone] Reason For Referral No Information Encounters Encounter Location Date Provider Diagnosis [facility] [address] [place] [address] 05/24/2024 Caden Huffman Plan Of Treatment No Information Insurance Providers Payer Name Payer Address Payer Phone Subscriber Number Group Number Insured Name Patient Relationship to Insured Coverage Start Date Coverage End Date [facility] [address] [place] [address] [id number] MERCEDES BRUSH Self - patient is the insured
--- OUTSIDE RECORDS SUMMARY | 2024-12-14 07:49 | XMS_ITS | Encounter Summary ---
Author Organization [employer] Address [address] [facility] 7t [place] [address] Care Team Providers Care Music Manager Name Role Phone Juan R Blount MD Primary Care Provide r Reason for Visit * Reason Comments Med Refill Encounter Details Date Type Department Care Team (Late st Contact Info) Description 06/27/2023 Refill [facility] MED & PEDS [address] [place] [address] Aggie Guan MD [address] [place] [address] Primary insomnia Social History Tobacco Use Types [...] Description 12/23/2024 1:15 PM EDT Office Visit [facility] [address] [place] [address] Juan R Blount MD [address] [place] [address] documented as of this encounter Visit Diagnoses Diagnosis Primary insomnia Persistent disorder of initiating or maintaining sleep documented in this encounter Additional Health Concerns Assessment Noted Time PHQ-9 Depression Total Score: 8 11/20/19 23 9:41 AM EDT documented as of this encounter Care Teams Music Manager Relationship Specialty Start Date End Date Juan R Blount MD [address] [place] [address] PCP - General Internal Medicine 12/09/13 Shasta Sutton Endocrinology 08/23/24 documented as of this encounter
--- OUTSIDE RECORDS SUMMARY | 2024-12-14 07:49 | XMS_ITS | Encounter Summary ---
Author Organization [employer] Address [address] [facility] 7t [place] [address] Care Team Providers Care Postal Worker Name Role Phone Juan R Blount MD Primary Care Provide r Reason for Visit * Reason Comments Med Refill Encounter Details Date Type Department Care Team (Late st Contact Info) Description 06/27/2023 Refill [facility] MED & PEDS [address] [place] [address] Aggie Guan MD [address] [place] [address] Primary insomnia Social History Tobacco Use Types [...] Description 12/23/2024 1:15 PM EDT Office Visit [facility] [address] [place] [address] Juan R Blount MD [address] [place] [address] documented as of this encounter Visit Diagnoses Diagnosis Primary insomnia Persistent disorder of initiating or maintaining sleep documented in this encounter Additional Health Concerns Assessment Noted Time PHQ-9 Depression Total Score: 8 11/20/19 23 9:41 AM EDT documented as of this encounter Care Teams Postal Worker Relationship Specialty Start Date End Date Juan R Blount MD [address] [place] [address] PCP - General Internal Medicine 12/09/13 Shasta Sutton Endocrinology 08/23/24 documented as of this encounter
--- OUTSIDE RECORDS SUMMARY | 2024-12-14 07:49 | XMS_ITS | Clinical Summary ---
Author Organization [facility] Address [address] [place] [address] [place] [phone] Phone Care Team Providers Care Textbook Associate Name Role Phone Juan R Eaton MD [...] this topic Insurance [place] Care Teams Textbook Associate Relationship Specialty Start Date End Date Juan R Eaton MD PCP - General Internal Medicine 08/23/20
--- OUTSIDE RECORDS SUMMARY | 2024-12-14 07:49 | XMS_ITS | Encounter Summary ---
Author Organization [employer] Address [address] [place] [address] [address] [place] [address] Care Team Providers Care Wrapper Stripper Name Role Phone Juan R Blount MD Primary Care Provide r Encounter Details Date Type Department Care Team (Late Contact Info) Description 05/31/2022 Abstract [facility] [address] [place] [phone] Juan R Blount MD [address] [place] [address] [phone] Social History Tobacco Use Types Packs/Day Years [...] Description 12/23/2024 1:15 PM EDT Office Visit [facility] [address] [place] [phone] Juan R Blount MD [address] [place] [address] [phone] documented as of this encounter Visit Diagnoses Not on filedocumented in this encounter Care Teams Wrapper Stripper Relationship Specialty Start Date End Date Juan R Blount MD [address] [place] [address] [phone] PCP - General Internal Medicine 12/09/13 Shasta Sutton Endocrin[facility] 08/23/24 documented as of this encounter
--- OUTSIDE RECORDS SUMMARY | 2024-12-14 07:49 | XMS_ITS | Encounter Summary ---
Author Organization [employer] Address [address] [place] [address] [address] [place] [address] Care Team Providers Care Forensic Locksmith Name Role Phone Juan R Blount MD Primary Care Provide r Reason for Visit * Reason Onset Date Comments Med Refill 12/03/2022 Encounter Details Date Type Department Care Team ([facility] st Contact Info) Description 12/03/[address] [facility] [address] [place] [address] Juan R Blount MD [address] [place] [address] Asthma, unspecified asthma severity, unspecified whether complicated, [...] Description 12/23/2024 1:15 PM EDT Office Visit [facility] [address] [place] [address] Juan R Blount MD [address] [place] [address] documented as of this encounter Visit Diagnoses Diagnosis Asthma, unspecified asthma severity, unspecified whether complicated, unspecified whether persistent documented in this encounter Additional Health Concerns Assessment Noted Time PHQ-9 Depression Total Score: 8 11/20/19 23 9:41 AM EDT documented as of this encounter Care Teams Forensic Locksmith Relationship Specialty Start Date End Date Juan R Blount MD [address] [place] [address] PCP - General Internal Medicine 12/09/13 Shasta Sutton Endocrinology 08/23/24 documented as of this encounter
--- OUTSIDE RECORDS SUMMARY | 2024-12-14 07:50 | XMS_ITS | Encounter Summary ---
Author Organization [employer] Address [address] [facility] 7t [place] [address] Care Team Providers Care Collection Administrator Name Role Phone Juan R Blount MD Primary Care Provide r Encounter Details Date Type Department Care Team (Late st Contact Info) Description 07/03/2022 Orders Only [facility] MED & PEDS [address] [place], [place] [phone] Luz Marina Zaragoza LPN Social History Tobacco [...] 1:15 PM EDT Office Visit [facility] MED[facility]INE [address] [place] [address] Juan R Blount MD [address] [place] [phone] documented as of this encounter Visit Diagnoses Not on filedocumented in this encounter Care Teams Collection Administrator Relationship Specialty Start Date End Date Juan R Blount MD [address] [place] [phone] PCP - General Internal Medicine 12/09/13 Shasta Sutton Endocrinology 08/23/24 documented as of this encounter
--- NOTE | 2024-12-27 14:59 | HO.ANESPROP2 ---
Documented by User: Winnie Mcnally NP 12/27/24 15:04 HPI - Anesthesia Eval Consult details Narrative: 69yo F for Right Breast Lumpectomy w/LOCalizer, [place] Node Biopsy Cardiac optimized. Recent cardiac w/u with [facility] for abnormal EKG with PCP (Angelito). ECHO and Stress OK. Anesthesia Pre-Procedure Meds Is the patient on any of the following meds?: GLP1/DPP4 PMFSH Active Problems Active Problems: All Active Problems Preoperative cardiovascular examination (Acute) Invasive ductal carcinoma of right breast in female (Acute) Disc degeneration, lumbar (Acute) Abnormal mammogram of right breast (Acute) Cervicalgia (Acute) Thyroid nodule (Acute) Osteopenia (Acute) Screening examination for infectious disease (Acute) Insulin dependent type 2 diabetes mellitus (Acute) Elevated C-reactive protein (Acute) Elevated sed rate (Acute) Myalgia, upper arm (Acute) Knee instability (Acute) Back pain at L4-L5 level (Acute) Knee pain, right (Acute) Knee pain, left (Acute) Medication monitoring encounter (Acute) Urge incontinence of urine (Acute) OAB (overactive bladder) (Acute) Cystitis (Acute) Microscopic hematuria (Acute) Lesion of bladder (Acute) Dysuria (Acute) Bilateral carpal tunnel syndrome (Acute) Nicotine dependence (Acute) Urinary frequency (Acute) Urinary incontinence (Acute) OAB (overactive bladder) (Acute) Hyperlipidemia (Acute) Toe fracture, right (Acute) Lumbar spondylosis (Acute) Type 2 diabetes mellitus with hyperglycemia, with long-term current use of insulin (Acute) Type 2 diabetes mellitus with chronic kidney disease (Acute) Chronic kidney disease, stage 3 unspecified (Acute) Proteinuria (Acute) Type 2 diabetes mellitus with diabetic polyneuropathy (Acute) Essential hypertension (Acute) Past Medical History Medical History (Updated 12/28/24 @ 09:19 by Anna Beard RN) History of lumbar puncture (04/28/24) Smoker Environmental allergies Seasonal allergies Cough Walker as ambulation aid Invasive ductal carcinoma of right breast in female CVA (cerebral vascular accident) (2008) Osteopenia Screening examination for infectious disease Insulin dependent type 2 diabetes mellitus Elevated C-reactive protein Elevated sed rate Myalgia, upper arm Knee instability Back pain at L4-L5 level Knee pain, right Knee pain, left UTI (urinary tract infection) Proteinuria Hyperlipidemia Lumbar spondylosis Fibromyalgia Syncope COPD (chronic obstructive pulmonary disease) Depression Asthma Type 2 diabetes mellitus with hyperglycemia, with long-term current use of insulin Type 2 diabetes mellitus with chronic kidney disease Chronic kidney disease, stage 3 unspecified Type 2 diabetes mellitus with diabetic polyneuropathy Essential hypertension Family History Family History Father No problems noted. Mother Heart disease CVD (cardiovascular disease) Diabetes Family history of problems with anesthesia: No Surgical History Surgical History (Updated 12/28/24 @ 09:19 by Anna Beard RN) H/O transurethral resection of bladder tumor (TURBT) (03/05/22) Hx of ultrasound guided needle biopsy Hx of mammogram Hx of colonoscopy Hx of oral surgery Hx of tubal ligation History of Problems with Anesthesia: No Social History Social History Household Members: Family Housing: Apartment Do you presently have visiting nurse or other home services: No Alcohol intake: never Patient Tobacco Use Status: Current everyday Tobacco user Tobacco use type: Cigarette Cigarette Packs Per Day: 0.5 Cigarettes Per Day: 10.0 Smoked in Last 30 Days: Yes Use of substances other than those prescribed or required for medical reasons: No Have you been hit, kicked, punched, or otherwise hurt by someone within the past year? If so, by whom?: No Are you DNR?: No Advance Directives: No Advance Directives Information Provided: Yes Advance Directives on File: No Poor oral hygiene: Yes (no upper teeth, some missing lower teeth) Meds Allergies Allergy/AdvReac Type Severity Reaction Status Date / Time insulin detemir Allergy Intermediate Rash Verified 12/14/24 10:57 penicillin V Allergy Intermediate Rash Verified 12/14/24 10:57 acetaminophen (From Tylenol) Allergy Mild ITCH,RASH Verified 12/14/24 10:57 iodine (Iodine) Allergy Mild HIVES Verified 12/14/24 10:57 trimerosal Allergy Intermediate rash Uncoded 12/14/24 10:57 Latex Gloves Allergy Mild Rash Uncoded 12/14/24 10:57 METAL Allergy Mild HIVES Uncoded 12/14/24 10:57 Home Medications ?Medication ?Instructions ?Recorded ?Confirmed ?Last Taken ?Type albuterol sulfate 90 mcg/actuation 2 puff inhalation Q6H PRN Wheezing 04/18/20 12/28/24 Unknown History aerosol inhaler aspirin 81 mg tablet,delayed 81 mg PO DAILY 04/18/20 12/28/24 12/27/23 09:00 History release atenolol 25 mg tablet 12.5 mg PO BID 04/18/20 12/28/24 12/27/23 09:00 History fluticasone 500 mcg-salmeterol 50 1 inh inhalation BID 04/18/20 12/14/24 12/27/23 09:00 History mcg/dose blistr powdr for inhalation (Advair Diskus) gabapentin 800 mg tablet 800 mg PO TID 04/18/20 12/28/24 12/27/23 09:00 History losartan 100 mg tablet 100 mg PO DAILY 04/18/20 12/28/24 12/27/23 09:00 History montelukast 10 mg tablet 10 mg PO BEDTIME 04/18/20 12/28/24 Unknown History (Singulair) insulin syringe-needle U-100 1 mL #10 ea 05/29/20 12/14/24 Unknown History 31 gauge x 15/64 zolpidem 10 mg tablet 10 mg PO BEDTIME PRN Insomnia 05/29/20 12/28/24 Unknown History dulaglutide 4.5 mg/0.5 mL 4.5 mg subcut MO@0900 01/21/23 12/29/24 12/16/24 History subcutaneous pen injector (Trulicity) umeclidinium 62.5 mcg/actuation 1 inh inhalation DAILY 01/21/23 12/28/24 12/27/23 09:00 History blister powder for inhalation (Incruse Ellipta) amlodipine 5 mg tablet 5 mg PO BEDTIME 12/28/23 12/28/24 Unknown History tramadol 50 mg tablet 50 mg PO TID PRN Pain 12/28/24 12/28/24 Unknown History Exam Pertinent Lab Results Pertinent Lab Results: Laboratory Tests 10/18/24 14:56 WBC 14.1 H Hgb 12.7 Hct 38.6 Plt Count 375 Sodium 141 Potassium 4.8 Chloride 106 Carbon Dioxide 28 BUN 16 Creatinine 0.85 Narrative Narrative: EKG 10/2024 EKG Details: EKG with underlying sinus rhythm at 88/Min; cannot exclude old septal infarct but could be from body habitus; normal [place] and corrected QT. NM cardiolite stress test 11/2024 Impression: 1. Myocardial perfusion imaging study shows normal myocardial perfusion. 2. Gated LVEF is 65% during stress and 69% during rest. 3. Transient ischemic dilatation not present. ECHO 10/2024 NM cardiolite stress test Impression: 1. Myocardial perfusion imaging study shows normal myocardial perfusion. 2. Gated LVEF is 65% during stress and 69% during rest. 3. Transient ischemic dilatation not present. Assessment and Plan Assessment Anesthesia Assessment: Chart Reviewed Final Anesthetic Review Family History of Problems with Anesthesia: No History of Problems with Anesthesia: No Documented by User: Nivia Rees MD 12/29/24 11:11 [facility] [place] Past Medical History Medical History (Updated 12/28/24 @ 09:19 by Anna Beard, RN) History of lumbar puncture (04/28/24) Smoker Environmental allergies Seasonal allergies Cough Walker as ambulation aid Invasive ductal carcinoma of right breast in female CVA (cerebral vascular accident) (2008) Osteopenia Screening examination for infectious disease Insulin dependent type 2 diabetes mellitus Elevated C-reactive protein Elevated sed rate Myalgia, upper arm Knee instability Back pain at L4-L5 level Knee pain, right Knee pain, left UTI (urinary tract infection) Proteinuria Hyperlipidemia Lumbar spondylosis Fibromyalgia Syncope COPD (chronic obstructive pulmonary disease) Depression Asthma Type 2 diabetes mellitus with hyperglycemia, with long-term current use of insulin Type 2 diabetes mellitus with chronic kidney disease Chronic kidney disease, stage 3 unspecified Type 2 diabetes mellitus with diabetic polyneuropathy Essential hypertension Family History Family History Father No problems noted. Mother Heart disease CVD (cardiovascular disease) Diabetes Surgical History Surgical History (Updated 12/28/24 @ 09:19 by Anna Beard, RN) H/O transurethral resection of bladder tumor (TURBT) (03/05/22) Hx of ultrasound guided needle biopsy Hx of mammogram Hx of colonoscopy Hx of oral surgery Hx of tubal ligation Social History Social History Household Members: Family Housing: Apartment Do you presently have visiting nurse or other home services: No Alcohol intake: never Patient Tobacco Use Status: Current everyday Tobacco user Tobacco use type: Cigarette Cigarette Packs Per Day: 0.5 Cigarettes Per Day: 10.0 Smoked in Last 30 Days: Yes Use of substances other than those prescribed or required for medical reasons: No Have you been hit, kicked, punched, or otherwise hurt by someone within the past year? If so, by whom?: No Are you DNR?: No Advance Directives: No Advance Directives Information Provided: Yes Advance Directives on File: No Poor oral hygiene: Yes (no upper teeth, some missing lower teeth) Meds Allergies Allergy/AdvReac Type Severity Reaction Status Date / Time insulin detemir Allergy Intermediate Rash Verified 12/14/24 10:57 penicillin V Allergy Intermediate Rash Verified 12/14/24 10:57 acetaminophen (From Tylenol) Allergy Mild ITCH,RASH Verified 12/14/24 10:57 iodine (Iodine) Allergy Mild HIVES Verified 12/14/24 10:57 trimerosal Allergy Intermediate rash Uncoded 12/14/24 10:57 Latex Gloves Allergy Mild Rash Uncoded 12/14/24 10:57 METAL Allergy Mild HIVES Uncoded 12/14/24 10:57 Home Medications ?Medication ?Instructions ?Recorded ?Confirmed ?Last Taken ?Type albuterol sulfate 90 mcg/actuation 2 puff inhalation Q6H PRN Wheezing 04/18/20 12/28/24 Unknown History aerosol inhaler aspirin 81 mg tablet,delayed 81 mg PO DAILY 04/18/20 12/28/24 12/27/23 09:00 History release atenolol 25 mg tablet 12.5 mg PO BID 04/18/20 12/28/24 12/27/23 09:00 History fluticasone 500 mcg-salmeterol 50 1 inh inhalation BID 04/18/20 12/14/24 12/27/23 09:00 History mcg/dose blistr powdr for inhalation (Advair Diskus) gabapentin 800 mg tablet 800 mg PO TID 04/18/20 12/28/24 12/27/23 09:00 History losartan 100 mg tablet 100 mg PO DAILY 04/18/20 12/28/24 12/27/23 09:00 History montelukast 10 mg tablet 10 mg PO BEDTIME 04/18/20 12/28/24 Unknown History (Singulair) insulin syringe-needle U-100 1 mL #10 ea 05/29/20 12/14/24 Unknown History 31 gauge x 15/64 zolpidem 10 mg tablet 10 mg PO BEDTIME PRN Insomnia 05/29/20 12/28/24 Unknown History dulaglutide 4.5 mg/0.5 mL 4.5 mg subcut MO@0900 01/21/23 12/29/24 12/16/24 History subcutaneous pen injector (Trulicity) umeclidinium 62.5 mcg/actuation 1 inh inhalation DAILY 01/21/23 12/28/24 12/27/23 09:00 History blister powder for inhalation (Incruse Ellipta) amlodipine 5 mg tablet 5 mg PO BEDTIME 12/28/23 12/28/24 Unknown History tramadol 50 mg tablet 50 mg PO TID PRN Pain 12/28/24 12/28/24 Unknown History Exam Airway Mallampati Class: II (edentulous with metal studs in place, left check swollen and painful since yesterday, feels similiar to previous tooth infection) TM Dist: >3cm Neck ROM: Full Heart: rrr Lungs: wheezing lower left prior to updraft Other: pt received updraft, repeated says she's at her baseline with breathing. she has secretions that she reassures are normal. surgeon aware of possible tooth infection and wants to be proceed. pt aware she is at increased risk for respiratory infection. Assessment and Plan Assessment Anesthesia Assessment: Anesthesia Plan Discussed and Smoking Cess. Discussed Final Anesthetic Review NPO: Yes ASA Class: III Final Preanesthetic Review: No Changes in Pt Med Stat, Meds/Allgs Chart Reviewed and Consent Obtained/Reviewed Patient Risk: Intermediate Procedure Risk: Intermediate Anesthetic Plan Anesthetic Plan: GA Disposition: Standard PACU
[2024-12-28 09:14] VITALS: BMI 26.8
[2024-12-29] VITALS (7 sets, daily range): BP systolic 124–153; BP diastolic 47–63; PULSE 79–96; RESP 16–18; TEMP 36.4–36.8; O2SAT 96–100; BMI 26.8
--- NOTE | ~2024-12-29 | MM_ITS ---
Single right breast specimen radiograph demonstrates the tag and the marker clip within the specimen. Electronically signed by: Gabriella Campuzano DO 12/29/2024 01:06 PM EDT
--- NOTE | ~2024-12-29 | NM_ITS ---
EXAMINATION: Nuclear medicine sentinel node with imaging. CLINICAL INDICATION: Right breast invasive ductal carcinoma COMPARISON: None. TECHNIQUE: Informed consent was obtained from the patient by Dr. Guajardo. 4% lidocaine was applied around the right breast areola 30 minutes before the central node procedure. The area around the right breast areola was cleaned and draped in usual sterile manner. 0.5 mCi of 99m technetium lympho seek divided in 4 equal doses was injected in 4 quadrants around the right breast areola and imaging obtained 30 minutes later. Patient tolerated procedure extremely well. FINDINGS: There are 4 areas of isotope activity in 4 quadrants around the right breast areola. A solitary dominant sentinel is seen in the right anterior axilla. Minimal trace activity seen in the right axillary apex. No activity seen along the internal mammary site. NM/NM sentinel node w imaging IMPRESSION: Solitary sentinel node visualized in the right anterior axilla on right breast lymphoscintigraphy. Electronically signed by: Simon Arnold MD 12/29/2024 12:32 PM EDT
[2024-12-29] MEDS: Lidocaine 4 % Cream KIT 1 APPL TOPICAL (07:30)
[2024-12-29] MEDS: Lactated Ringers 1,000 ML 100 ML IVCONT (07:35)
[2024-12-29 07:47] LABS: Glucose, Whole Blood 239 mg/dL (60-115)
[2024-12-29] MEDS: Albuterol Sulfate (0.083%) 2.5 MG/3 ML VIAL.NEB INHALE (07:52)
--- NOTE | 2024-12-29 11:48 | MHC.SHP ---
Pre-Procedural Eval Section A - 24 Hr Update-Section A only Date of Service: 12/29/24 The patient is an INPATIENT: No Changes since office visit: Yes Patient answered all questions; No Cold of Flu in the past 2 weeks, No New Medical Problems and No Changes in Medication The patient has been examined within 24 hours of the surgical procedure. The History & Physical has been completed within 30 days and I have reviewed it.: No Section B - Complete if H&P > 30 days Chief Complaint: Malignant neoplasm of unspecified site of right Details of Present Illness: No change in symptoms Relevant Family History (Specify if Yes): No Relevant Social History: None Present Medications: see Short Stay Collaborative assessment Medical History: No relevant PMH History of Previous Operations: No relevant previous surgery Allergies: Allergies Allergy/AdvReac Type Severity Reaction Status Date / Time insulin detemir Allergy Intermediate Rash Verified 12/14/24 10:57 penicillin V Allergy Intermediate Rash Verified 12/14/24 10:57 acetaminophen (From Tylenol) Allergy Mild ITCH,RASH Verified 12/14/24 10:57 iodine (Iodine) Allergy Mild HIVES Verified 12/14/24 10:57 trimerosal Allergy Intermediate rash Uncoded 12/14/24 10:57 Latex Gloves Allergy Mild Rash Uncoded 12/14/24 10:57 METAL Allergy Mild HIVES Uncoded 12/14/24 10:57 Review of Systems Sugical H&P ROS: Negative: Constitution, Cardiovascular, Respiratory, Neurological, Psychiatric, Hem-Onc, Allergic/Immunologic, Gastrointestinal, Genitourinary, Musculoskeletal and Integumentary Exam Surgical H&P Exam: Normal: HEENT, Normal: Heart, Normal: Lungs, Normal: Extremities, Normal: Abdomen and Normal: Skin Plan Diagnosis/Plan: Unchanged I have reviewed the history and physical and performed a pertinent physical examination on my patient. No changes have occurred unless specified. Time Spent With Patient Time: Total time managing care of this patient today ____ minutes.
--- NOTE | 2024-12-29 12:12 | PC.NURSE ---
Pt with productive cough - yellow/light green sputum noted. Pt with left lower cheek swelling upon arrival. Anesthesia aware, pt assessed at bedside. Albuterol inhaler given this AM. VSS. O2 sat 96-99% while in pre op. Pt reports incontinence of urine. Pull up on. Pt refused to use restroom while in pre op. Last void at 6am per pt.
--- NOTE | 2024-12-29 13:37 | P.OP_ITS ---
Operative Note Operative Note Date of Service: 12/29/24 Narrative: Preoperative diagnosis: Invasive ductal carcinoma right breast Postoperative diagnosis: Same Procedure: Right breast lumpectomy with localizer, right axillary sentinel node biopsy Surgeon: George Bearden MD Security Control Assessor: Nataliya Vo PA-C; NOAH Raphael Anesthesia: General LMA Indications for procedure: 69-year-old female patient presenting with a focal asymmetry in the right breast at the upper outer quadrant felt to be suspicious for malignancy. Subsequent stereotactic guided core biopsy at [facility] revealed an invasive ductal carcinoma, grade 1, with DCIS ER/OK positive, HER2 Allan equivocal. She presents today for right breast lumpectomy with sentinel node biopsy. Operative findings: Localizing clip and localizer noted within the specimen x- ray. Gross pathology revealed close anterior inferior margin. Additional anterior inferior margin was excised at the time of the primary procedure. Three sentinel nodes were identified within the specimen Specimen: 1. Lumpectomy with localizer right breast upper outer quadrant, 2. [place] node 1, 3. Additional axillary contents, 4. [place] node 2, 5. [place] node 3, 6. Anterior inferior margin right breast. Estimated blood loss: 10 mL Complications: None Procedure details: Patient was brought to the OR and placed in a supine position. After administering general anesthesia the patient's right breast was prepped with ChloraPrep and draped in a sterile fashion. A surgical time-out was called the consent confirmed. Patient received preoperative antibiotics and Venodyne boots were in place. The localizer was used to identify the site of the localizing clip in the upper outer quadrant. A curvilinear incision was planned at the upper outer quadrant. Local anesthesia was infiltrated over the localizing clip. Incision was then made with a scalpel and carried out through subcutaneous tissue. Superior and inferior skin flaps were then created using electrocautery. A core tissue around the localizing clip was then obtained beginning at the superior margin continue with the medial margin, inferior margin, posterior margin and finally the medial margin. The specimen was removed and marked with a long suture on the lateral margin, short suture on the superior margin, and looped suture in the posterior margin. Specimen x-ray performed in the room confirmed the localizing clip and marking clip within the specimen. This was then sent to pathology for further examination. Attention was then directed to the axilla which was approached through the same incision. Dissection into the axilla past the clavipectoral fascia revealed several radioactive nodes. Gentle dissection within the axilla using the gamma probe as a guide revealed 3 sentinel nodes which were quite small and sent as separate specimen. Additional axillary tissue was also sent possibly with a palpable node which was not radioactive. No other palpable or radioactive nodes were identified. Report from the pathology department revealed the margins were close at the anterior inferior margin. An additional anterior inferior margin was then obtained and marked with a long suture on the lateral margin, short suture on the superior margin and looped suture on the posterior margin. This was sent to the pathology Department for further examination. The wounds were then checked for hemostasis using electrocautery and free ties of 3-0 Polysorb. Wounds were irrigated with saline solution and suctioned dry. The breast cavity was marked using hemoclips. Deep breast tissue was then reapproximated using interrupted 3-0 Polysorb sutures. Superficial breast tissue and dermis were then reapproximated using interrupted 3-0 Polysorb sutures. Skin was closed using a running subcuticular 4-0 Polysorb suture. Steri-Strips, 4 x 4 gauze and Tegaderm were then applied. The patient tolerated the procedure well. Sponge, instrument, and needle counts reported as correct. The patient was transferred PACU in stable condition. Please note. This procedure was done with a curative intent. Breast [place] Node Biopsy Substrate(s) used for sentinel node biopsy in the non-neoadjuvant setting: Radiotracer Substrate(s) used for sentinel node biopsy in the neoadjuvant setting: N/A All colored nodes or non-colored nodes present at the end of a dye filled lymphatic channel were removed, if dye was used as the substrate for localization: N/A All significantly radioactive nodes were removed, if radionuclide was used as the substrate for localization: Yes All palpably suspicious nodes were removed, if present: Yes If clips were placed in pathology-involved nodes, those nodes were identified and removed: N/A Procedure performed with curative intent?: Yes General Surg. - Synoptic Notes Breast [place] Node Biopsy Substrate(s) used for sentinel node biopsy in the non-neoadjuvant setting: Radiotracer Substrate(s) used for sentinel node biopsy in the neoadjuvant setting: N/A All colored nodes or non-colored nodes present at the end of a dye filled lymphatic channel were removed, if dye was used as the substrate for localization: N/A All significantly radioactive nodes were removed, if radionuclide was used as the substrate for localization: Yes All palpably suspicious nodes were removed, if present: Yes If clips were placed in pathology-involved nodes, those nodes were identified and removed: N/A Procedure performed with curative intent?: Yes
== END 2024-12-29 15:10 | disposition home or self-care (01) ==
PROVIDERS: Pathology Anatomic Pathology & Clinical Pathology; PCP Internal Medicine; Visit Provider Surgery
PROC: (CPT 19301; principal; 2024-12-29 11:40)
PROC: (CPT 19301; 2024-12-29 11:40)
DX: C50.411 Malignant neoplasm of upper-outer quadrant of right female breast (principal); Z17.0 Estrogen receptor positive status [ER+]; Z17.21 Progesterone receptor positive status; R93.89 Abnormal findings on diagnostic imaging of other specified body structures; E11.22 Type 2 diabetes mellitus with diabetic chronic kidney disease; N18.30 Chronic kidney disease, stage 3 unspecified; E11.42 Type 2 diabetes mellitus with diabetic polyneuropathy; E11.65 Type 2 diabetes mellitus with hyperglycemia; I12.9 Hypertensive chronic kidney disease with stage 1 through stage 4 chronic kidney disease, or unspecified chronic kidney disease; I35.0 Nonrheumatic aortic (valve) stenosis; J44.9 Chronic obstructive pulmonary disease, unspecified; E78.5 Hyperlipidemia, unspecified; M79.7 Fibromyalgia; Z86.73 Personal history of transient ischemic attack (TIA), and cerebral infarction without residual deficits; Z79.4 Long term (current) use of insulin; Z79.85 Long-term (current) use of injectable non-insulin antidiabetic drugs; Z79.51 Long term (current) use of inhaled steroids; Z79.82 Long term (current) use of aspirin; Z79.899 Other long term (current) drug therapy; Z88.0 Allergy status to penicillin; Z88.8 Allergy status to other drugs, medicaments and biological substances; Z91.041 Radiographic dye allergy status; Z91.040 Latex allergy status; Z98.890 Other specified postprocedural states; F17.210 Nicotine dependence, cigarettes, uncomplicated
CPT/HCPCS: 19301; 38525; 38900; 78195; 82947; 88304; 88307; 88341; 88342; 88360; 88374; 94640; A9520; J2003; J2250; J2371; J2704; J2919; J3010; J3374

== ENCOUNTER → 2024-12-29 06:57 | Outpatient (BNV) | payer OTHER, SELFPAY | PROVIDERS: PCP Internal Medicine; Visit Provider Surgery | DX: C50.911 Malignant neoplasm of unspecified site of right female breast (principal) | CPT/HCPCS: 19301; 38525; 38900 ==

== ENCOUNTER → 2024-12-29 08:23 | Outpatient (BNV) | payer OTHER, SELFPAY | PROVIDERS: PCP Internal Medicine; Visit Provider Radiology Diagnostic Radiology | DX: C50.911 Malignant neoplasm of unspecified site of right female breast (principal) | CPT/HCPCS: 78195 ==

== ENCOUNTER 2025-01-10 09:41 | Outpatient (AMB) | payer OTHER, SELFPAY ==
--- OUTSIDE RECORDS SUMMARY | 2024-05-25 09:00 | XMS_ITS ---
Author Organization [facility] Address [address] [place] [phone] Care Team Providers Care Commercial Appraiser Name Role Phone Angelito Vega MD, Juan R Primary Care Provide Caden Jordan [phone] REASON FOR VISIT Patient presents today for a COLON SCREENING Encounters Encounter Location Date Provider Diagnosis [facility] [address] [place] [phone] 05/25/2024 Caden Huffman Plan Of Treatment No Information Progress Notes * MERCEDES BRUSHDOB:[birth year] (69 yo M)Acc No.[id number]:05/25/2024 Progress Notes Patient: MERCEDES PEPE Provider: Rey Huffman MD :1955 A ge:69 Y S ex:Male Date:05/25/2024 Address:[address] [place], [place] [id number] Pcp:Juan R montalvo MD Subjective: * Chief [...] 05/25/2024 Generated for Deirdre dominguez/Bobbi/Chitraitting on: 0 01/10/2025 11:28 AM EDT
--- NOTE | 2025-01-10 09:54 | MHC.OFFVIS ---
Vital Signs 01/10/25 10:27 Weight 166 lb BP 128/60 Blood Pressure Location Lt brachial Position Sitting Pulse 78 Intake Visit Reasons: s/p rt breast lumpectomy w/Local/SN Box Intake Note: Patient is seen in office for post op assessment post Right breast lumpectomy with localizer, right axillary sentinel node biopsy. Pt c/o: mild tenderness, has dressing in place. surgery:12/29/24 Microarray Specialist Required: Yes Microarray Specialist Services: Microarray Specialist Offered & Declined Accompanied by: Son Allergies insulin detemir Allergy (Intermediate, Verified 01/10/25 10:27) Rash penicillin V Allergy (Intermediate, Verified 01/10/25 10:27) Rash acetaminophen (From Tylenol) Allergy (Mild, Verified 01/10/25 10:27) ITCH,RASH iodine (Iodine) Allergy (Mild, Verified 01/10/25 10:27) HIVES trimerosal Allergy (Intermediate, Uncoded 01/10/25 10:27) rash Latex Gloves Allergy (Mild, Uncoded 01/10/25 10:27) Rash METAL Allergy (Mild, Uncoded 01/10/25 10:27) HIVES Medication List - Last Reconciled 01/10/25 by George Bearden MD albuterol sulfate 90 mcg/actuation 2 puffs inhalation Q6H PRN amlodipine 5 mg PO BEDTIME aspirin 81 mg PO DAILY atenolol 12.5 mg PO BID atorvastatin 40 mg PO BEDTIME blood sugar diagnostic (FreeStyle Lite Strips) four times a day blood-glucose meter (FreeStyle Lite Meter kit) As directed blood-glucose sensor (FreeStyle Crystal 3 Sensor device) apply new sensor every 14 days blood-glucose,beer still runner compounder,cont (FreeStyle Crystal 3 [place]) Use daily to monitor blood glucose levels continuously. [Cane As directed] cyanocobalamin (vitamin B-12) 1,000 mcg PO DAILY docusate sodium 100 mg PO BEDTIME dulaglutide (Trulicity) 4.5 mg subcut MO@0900 fluticasone propion-salmeterol 500-50 mcg/dose (Advair Diskus) 1 inh inhalation BID gabapentin 800 mg PO TID glucose (Dex4 Glucose Quick Dissolve) 16 grams (4 x 4 gram) PO Q15M PRN insulin aspart U-100 (Novolog FlexPen U-100 Insulin aspart) subcutaneously 3 times a day before meals; administer 17 units before breakfast and dinner and 20 units before lunch. insulin degludec (Tresiba FlexTouch U-200 insulin) 52 units (0.26 mL) subcut BEDTIME 30 days insulin syringe-needle U-100 As directed lancets (FreeStyle Lancets) four times a day lidocaine 5% 1 appl topical BID PRN losartan 100 mg PO DAILY montelukast (Singulair) 10 mg PO BEDTIME nicotine 21 mg transdermal DAILY oxycodone 5 mg PO Q6H PRN pen needle, diabetic (BD Ultra-Fine Janene Pen Needle) As directed four times a day pioglitazone 15 mg PO QAM tramadol 50 mg PO TID PRN umeclidinium 62.5 mcg/actuation (Incruse Ellipta) 1 inh inhalation DAILY zolpidem 10 mg PO BEDTIME PRN HPI Comments Details: 69-year-old female patient returning 1 week following right breast lumpectomy for 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 She has a past medical history of CVA with right-sided weakness, COPD, type 2 diabetes, chronic kidney disease stage 3, and essential hypertension. A recent mammogram and ultrasound performed on 09/01/2024 revealed a right breast density in the 10 o'clock position, 3 cm from the nipple. Subsequent stereotactic guided core biopsy performed at [facility] revealed the pathology of invasive ductal carcinoma with tubular lobular features, grade 1 with DCIS present, low nuclear grade, ER positive, AZ positive, HER2 Allan equivocal, fish pending. She subsequently underwent right breast lumpectomy with localizer and sentinel node biopsy on 12/29/2024. She tolerated the procedure well and returns today for wound check. Pathology revealed invasive ductal carcinoma with lobular features, grade 2, 18 mm with final anterior margin free tumor. In addition ductal carcinoma in-situ nuclear grade 1 was noted with a positive posterior margin for DCIS. Three sentinel nodes were negative for metastatic carcinoma. [facility] Medical History History of lumbar puncture (04/28/24) Smoker Environmental allergies Seasonal allergies Cough Walker as ambulation aid Invasive ductal carcinoma of right breast in female CVA (cerebral vascular accident) (2008) Osteopenia Screening examination for infectious disease Insulin dependent type 2 diabetes mellitus Elevated C-reactive protein Elevated sed rate Myalgia, upper arm Knee instability Back pain at L4-L5 level Knee pain, right Knee pain, left UTI (urinary tract infection) Proteinuria Hyperlipidemia Lumbar spondylosis Fibromyalgia Syncope COPD (chronic obstructive pulmonary disease) Depression Asthma Type 2 diabetes mellitus with hyperglycemia, with long-term current use of insulin Type 2 diabetes mellitus with chronic kidney disease Chronic kidney disease, stage 3 unspecified Type 2 diabetes mellitus with diabetic polyneuropathy Essential hypertension Surgical History History of lumpectomy of right breast (12/29/24) H/O transurethral resection of bladder tumor (TURBT) (03/05/22) Hx of ultrasound guided needle biopsy Hx of mammogram Hx of colonoscopy Hx of oral surgery Hx of tubal ligation Family History Father No problems noted. Mother Heart disease CVD (cardiovascular disease) Diabetes Social History Household Members: Family Housing: Apartment Are you a primary administrator health care facility to a significant other at home: No Do you presently have visiting nurse or other home services: No Alcohol intake: never Patient Tobacco Use Status: Current everyday Tobacco user Tobacco use type: Cigarette Cigarette Packs Per Day: 0.5 Cigarettes Per Day: 10.0 Female Reproductive History Menstrual Age of Menarche: 11 Physical Exam Vital Signs: Last Vital Signs Pulse 78 01/10/25 10:27 BP 128/60 01/10/25 10:27 Const General: no acute distress Nutritional Appearance: well nourished Orientation/consciousness: patient oriented x3 Limitations: wheelchair HEENT Head: Yes normocephalic and Yes atraumatic Chest Other: Right breast with a well-healed incision in the upper outer quadrant without hematoma, seroma, erythema or discharge. Resp Effort & Inspection: normal respiratory effort, no audible wheezes, no cough and no respiratory distress Skin Other: Warm, dry, no rash Neuro Other: Mobility Assessment: 1. 3 meter assessment time (seconds) unable to perform 2. Gait observations: Patient in wheelchair, nonambulatory General: patient oriented x3 Assessment & Plan Assessment & Plan (1) Invasive ductal carcinoma of right breast in female: Code(s): C50.911 - Malignant neoplasm of unspecified site of right female breast Category: Medical Plan 69-year-old female patient diagnosed with invasive ductal carcinoma of the right breast. She returns today 1 week following right breast lumpectomy with localizer and axillary sentinel node biopsy. Pathology revealed invasive ductal carcinoma, with lobular features, grade 2, 18 mm, final anterior margins free of tumor. Ductal carcinoma in-situ, nuclear grade 1, posterior margin is positive for DCIS. Three sentinel nodes were negative for metastatic disease (pT1c N0 (sn) (i-)). I reviewed the pathology results and discuss the treatment options. I recommended a wider excision to assure negative posterior margin obtain a 2 mm or greater DCIS margin. After a discussion of the procedure, risks, and alternatives, she consents the surgery and this will be scheduled at her earliest convenience. Coding Level of Care Code Global (58916) Diagnoses Invasive ductal carcinoma of right breast in female C50.911
[2025-01-10 10:27] VITALS: BP 128/60; PULSE 78
--- OUTSIDE RECORDS SUMMARY | 2025-01-10 11:28 | XMS_ITS | Encounter Summary ---
Author Organization [employer] Address [address] [facility] 7t [place] [address] Care Team Providers Care Software Engineering Analyst Name Role Phone Juan R Blount MD Primary Care Provide r Reason for Visit * Reason Comments Med Refill Encounter Details Date Type Department Care Team ([facility] st Contact Info) Description 07/29/2023 Refill [facility] CH[facility] MED & PEDS [address] [place] [address] Aggie Guan MD [address] [place] [address] Primary insomnia Social History Tobacco Use Types [...] Description 01/25/2025 1:00 PM EDT Office Visit [facility] MEDICINE [address] [place] [address] Juan R Blount MD [address] [place] [address] documented as of this encounter Visit Diagnoses Diagnosis Primary insomnia Persistent disorder of initiating or maintaining sleep documented in this encounter Additional Health Concerns Assessment Noted Time PHQ-9 Depression Total Score: 8 11/20/19 23 9:41 AM EDT documented as of this encounter Care Teams Software Engineering Analyst Relationship Specialty Start Date End Date Juan R Blount MD [address] [place] [address] PCP - General Internal Medicine 12/09/13 [facility] End[facility] 08/23/24 documented as of this encounter
--- OUTSIDE RECORDS SUMMARY | 2025-01-10 11:28 | XMS_ITS | Encounter Summary ---
Author Organization [employer] Address [address] [facility] 7[address] [place] [address] Care Team Providers Care Meat Stock Clerk Name Role Phone Juan R Blount MD Primary Care Provide r Reason for Visit * Reason Comments Med Refill Encounter Details Date Type Department Care Team ([facility] st Contact Info) Description 12/17/[address] [facility] MEDICINE [address] [place], [place] [phone] Juan R Blount MD [address] [place], [place] [phone] Asthma, unspecified asthma severity, unspecified whether complicated, [...] encounter Miscellaneous Notes * Telephone Encounter - Ana Willis LPN - 12/29/2024 1:04 PM EDT ----- Message from Juan R Vega MD sent at 12/28/2024 4:26 PM EDT ----- Regarding: RE: Script Requests Contact: approved ----- Message ----- From: Ana Willis LPN Sent: 12/27/2024 1:15 PM EDT To: Juan R Vega MD Subject: FW: Script Requests Please review message below and advise. ----- Message ----- From: Ashley Ponce Sent: 12/27/2024 12:14 PM EDT To: Amanda Sarabia Subject: Script Requests [place], I am (Space Sciences Director Ashley Ponce), Space Sciences Director for [facility] Care Management, requesting the following DME???s on behalf of patient. DME Item: Handheld Shower head, and non-slip bathmat Supportive DX: R29.6, E66.09 If you should have any inquiries regarding this request, feel free to contact the Space Sciences Director below. Space Sciences Director: Ashley Ponce E-mail: [email or web address] Cruise Counselor: Cruise Counselor Gayla Singh Phone: E-mail: [email or web address] Thanks in advance for your assistance with this request. Sincerely, [facility] Care Management documented in this encounter Plan of Treatment Upcoming Encounters Date Type Department Care Team ([facility] st Contact Info) Description 01/25/2025 1:00 PM EDT Office Visit [facility] MEDICINE [address] [place] [address] Juan R Blount MD [address] [place] [address] documented as of this encounter Visit Diagnoses Diagnosis Asthma, unspecified asthma severity, unspecified whether complicated, unspecified whether persistent documented in this encounter Additional Health Concerns Assessment Noted Time PHQ-9 Depression Total Score: 3 01/15/20 24 1:38 PM EDT documented as of this encounter Care Teams Meat Stock Clerk Relationship Specialty Start Date End Date Juan R Blount MD [address] [place] [address] PCP - General Internal Medicine 12/09/13 Sh[facility] Sutton Endocrinology 08/23/24 documented as of this encounter
--- OUTSIDE RECORDS SUMMARY | 2025-01-10 11:28 | XMS_ITS | Encounter Summary ---
Author Organization [employer] Address [address] [place] [address] Care Team Providers Care Soil Technologist Name Role Phone Juan R Blount MD Primary Care Provide r Encounter Details Date Type Department Care Team (Late st Contact Info) Description 05/16/2023 Abstract [facility] MEDICINE [address] [place] [address] Juan R Blount MD [address] [place] [address] Social History Tobacco Use Types [...] 01/25/2025 1:00 PM EDT Office Visit [facility] MEDICINE [address] [place] [address] Juan R Blount MD [address] [place] [address] documented as of this encounter Visit Diagnoses Not on filedocumented in this encounter Additional Health Concerns Assessment Noted Time PHQ-9 Depression Total Score: 8 11/20/19 23 9:41 AM EDT documented as of this encounter Care Teams Soil Technologist Relationship Specialty Start Date End Date Juan R Blount MD [address] [place] [address] PCP - General Internal Medicine 12/09/13 Sh[facility] Sutton Endocrin[facility] 08/23/24 documented as of this encounter
--- OUTSIDE RECORDS SUMMARY | 2025-01-10 11:28 | XMS_ITS | Encounter Summary ---
Author Organization [employer] Address [address] 7[address] [place] [address] Care Team Providers Care Decision Support Analyst Name Role Phone Juan R Blount MD Primary Care Provide r Reason for Visit * Reason Comments Med Refill Encounter Details Date Type Department Care Team ([facility] st Contact Info) Description 04/16/2024 Refill [facility] CHC MED & PEDS [address] [place] [address] Aggie Melendez MD [address] [place] [address] Primary insomnia Social History Tobacco Use Types [...] 1:00 PM EDT Office Visit [facility] MEDICINE [address] [place] [address] Juan R Blount MD [address] [place] [address] documented as of this encounter Visit Diagnoses Diagnosis Primary insomnia Persistent disorder of initiating or maintaining sleep documented in this encounter Additional Health Concerns Assessment Noted Time PHQ-9 Depression Total Score: 3 01/15/20 24 1:38 PM EDT documented as of this encounter Care Teams Decision Support Analyst Relationship Specialty Start Date End Date Juan R Blount MD [address] [place] [address] PCP - General Internal Medicine 12/09/13 [facility] Endocrin[facility] 08/23/24 documented as of this encounter
--- OUTSIDE RECORDS SUMMARY | 2025-01-10 11:28 | XMS_ITS | Encounter Summary ---
Author Organization [employer] Address [address] [facility] 7t [place] [address] Care Team Providers Care Livestock Farm Manager Name Role Phone Juan R Blount MD Primary Care Provide r Reason for Visit * Reason Onset Date Comments [facility] QUESTIONS 12/02/2024 Encounter Details Date Type Department Care Team ([facility] st Contact Info) Description 12/02/2024 Telephone [facility] MEDICINE [address] [place], [place] [phone] Juan R Blount MD [address] [place], [place] [phone] [facility] QUESTIONS Social History Tobacco Use Types [...] 12/02/2024 9:21 AM EDT LISA keller with [facility] requesting a call back due [...] Description 01/25/2025 1:00 PM EDT Office Visit [facility] MEDICINE [address] [place] [address] Juan R Blount MD [address] [place], [place] [phone] documented as of this encounter Visit Diagnoses Not on filedocumented in this encounter Additional Health Concerns Assessment Noted Time PHQ-9 Depression Total Score: 3 01/15/20 24 1:38 PM EDT documented as of this encounter Care Teams Livestock Farm Manager Relationship Specialty Start Date End Date Juan R Blount MD [address] [place] [id number] PCP - General Internal Medicine 12/09/13 Sh[facility] Sutton Endocrinology 08/23/24 documented as of this encounter
--- OUTSIDE RECORDS SUMMARY | 2025-01-10 11:28 | XMS_ITS | Encounter Summary ---
Author Organization [employer] Address [address] [facility] [address] [place] [address] Care Team Providers Care Air Analyst Name Role Phone Juan R Blount MD Primary Care Provide r Reason for Visit * Reason Comments Med Refill Encounter Details Date Type Department Care Team ([facility] st Contact Info) Description 06/27/2023 Refill [facility] CHC MED & PEDS [address] [place] [address] Aggie Guan MD [address] [place] [address] Primary insomnia Social History Tobacco Use Types [...] Description 01/25/2025 1:00 PM EDT Office Visit [facility] MEDICINE [address] [place] [address] Juan R Blount MD [address] [place] [address] documented as of this encounter Visit Diagnoses Diagnosis Primary insomnia Persistent disorder of initiating or maintaining sleep documented in this encounter Additional Health Concerns Assessment Noted Time PHQ-9 Depression Total Score: 8 11/20/19 23 9:41 AM EDT documented as of this encounter Care Teams Air Analyst Relationship Specialty Start Date End Date Juan R Blount MD [address] [place] [address] PCP - General Internal Medicine 12/09/13 Sh[facility] Sutton Endocrinology 08/23/24 documented as of this encounter
--- OUTSIDE RECORDS SUMMARY | 2025-01-10 11:28 | XMS_ITS | Clinical Summary ---
Author Organization [facility] Address [address] [place] [address] [place] [place] [phone] Phone Care Team Providers Care Flat Bed Knitter Name Role Phone Juan R Eaton MD [...] this topic Insurance [place] Care Teams Flat Bed Knitter Relationship Specialty Start Date End Date Juan R Eaton MD PCP - General Internal Medicine 08/23/20
--- OUTSIDE RECORDS SUMMARY | 2025-01-10 11:28 | XMS_ITS | Clinical Summary ---
Author Organization [facility] Address [address] [place] [address] Phone Care Team Providers Care Fnp Name Role Phone Juan R Bey MD Primary Care Provi nalini Social History Tobacco Use Types Packs/Day Years [...] this topic Medical Devices Implanted Type Area Wet Sander Device Identifier Shelf Expiration Date Model / Serial / Lot Marker Breast Biopsy 10g Flexible Ti Open Coil [employer] - [id number] Implanted:Qty: 1 on 09/23/2024 by Christos Warner MD at [facility] Imaging Implants Right: Breast DEVICOR [employer] [id number] 03/10/2027 4010-05- 10-T3 / / [id number] Procedures Procedure Name Priority Date/Time Associated [...] Signed Date: 09/27/2024 14:26 ET Workstation ID: [id number] Transcribed By: Self Edit Transcribed Date: 09/27/2024 [...] Pathology pending for the right breast. Location: [address] [place], [address] -------- FINAL REPORT -------- Dictated By: Christos Warner Dictated Date: 09/23/2024 13:54 ET Assigned Physician: Christos Warner Reviewed and Electronically Signed By: Christos Warner Signed Date: 09/23/2024 15:10 ET Workstation ID: [id number] Transcribed By: Self Edit Transcribed Date: 09/23/2024 [...] of immediate complication. No new suspicious findings. George Bearden MD IMG BI PROCEDURES Edited Resu lt - Final from Last 3 Months or Most Recently Relevant to Health Maintenance Insurance [employer] MEDICARE Member Subscriber Plan / Payer (Ef fective 2016-Present) Name:BRUSH, TORRIE Relation to Subscriber:Self Name:Torrie Brush Payer ID:[id number] Group ID:[id number] Type:Not on file Address: [facility] [address] [phone] Care Teams Fnp Relationship Specialty Start Date End Date Juan R Bey MD [address] [place] [id number] PCP - General Internal Medicine 09/03/24
--- OUTSIDE RECORDS SUMMARY | 2025-01-10 11:28 | XMS_ITS | Encounter Summary ---
Author Organization [employer] Address [address] [place] [address] Care Team Providers Care Singing Messenger Name Role Phone Juan R Blount MD Primary Care Provide r Reason for Visit * Reason Comments Med Refill Encounter Details Date Type Department Care Team ([facility] st Contact Info) Description 01/08/2025 Refill [facility] CHC MED & PEDS [address] [place], [place] [phone] Juan R Blount MD [address] [place] [address] Type 2 diabetes mellitus without complication, with long-term current use of insulin ([facility]) Social History Tobacco Use Types Packs/Day [...] 1:00 PM EDT Office Visit [facility] MEDICINE [address] [place] [address] Juan R Blount MD [address] [place] [address] documented as of this encounter Visit Diagnoses Diagnosis Type 2 diabetes mellitus without complication, with long-term current use of insulin ([facility]) documented in this encounter Additional Health Concerns Assessment Noted Time PHQ-9 Depression Total Score: 3 01/15/20 24 1:38 PM EDT documented as of this encounter Care Teams Singing Messenger Relationship Specialty Start Date End Date Juan R Blount MD [address] [place] [address] PCP - General Internal Medicine 12/09/13 Sh[facility] Sutton Endocrinology 08/23/24 documented as of this encounter
--- OUTSIDE RECORDS SUMMARY | 2025-01-10 11:28 | XMS_ITS | Encounter Summary ---
Author Organization [employer] Address [address] [place] [address] Care Team Providers Care Automotive Worker Name Role Phone Juan R Blount MD Primary Care Provide r Reason for Visit * Reason Comments Med Refill Encounter Details Date Type Department Care Team ([facility] st Contact Info) Description 10/23/2023 Refill [facility] CHC MED & PEDS [address] [place], [place] [phone] Juan R Blount MD [address] [place] [address] Type 2 diabetes mellitus with hyperglycemia, with long-term current use of insulin ([facility]) Social History Tobacco Use Types Packs/Day Years [...] Description 01/25/2025 1:00 PM EDT Office Visit [facility] MEDICINE [address] [place] [address] Juan R Blount MD [address] [place] [address] documented as of this encounter Visit Diagnoses Diagnosis Type 2 diabetes mellitus with hyperglycemia, with long-term current use of insulin ([facility]) documented in this encounter Additional Health Concerns Assessment Noted Time PHQ-9 Depression Total Score: 8 11/20/19 23 9:41 AM EDT documented as of this encounter Care Teams Automotive Worker Relationship Specialty Start Date End Date Juan R Blount MD [address] [place] [address] PCP - General Internal Medicine 12/09/13 Sh[facility] Sutton Endocrinology 08/23/24 documented as of this encounter
--- OUTSIDE RECORDS SUMMARY | 2025-01-10 11:28 | XMS_ITS | Encounter Summary ---
Author Organization [employer] Address [address] [place] [address] Care Team Providers Care Registered Nurse Supervisor Name Role Phone Juan R Blount MD Primary Care Provide r Reason for Visit * Reason Comments Med Refill Encounter Details Date Type Department Care Team ([facility] st Contact Info) Description 06/17/2024 Refill [facility] [address] [place], [place] [phone] Name, MD Fco [address] [place] [address] Mixed hyperlipidemia Social History Tobacco Use Types [...] EDT Office Visit [facility] [address] [place] [address] Juan R Blount MD [address] [place] [address] documented as of this encounter Visit Diagnoses Diagnosis Mixed hyperlipidemia documented in this encounter Additional Health Concerns Assessment Noted Time PHQ-9 Depression Total Score: 3 01/15/20 24 1:38 PM EDT documented as of this encounter Care Teams Registered Nurse Supervisor Relationship Specialty Start Date End Date Juan R Blount MD [address] [place] [address] PCP - General Internal Medicine 12/09/13 [facility] 08/23/24 documented as of this encounter
--- OUTSIDE RECORDS SUMMARY | 2025-01-10 11:28 | XMS_ITS | Encounter Summary ---
Author Organization [employer] Address [address] [facility] [facility] 7t [place] [address] Care Team Providers Care Direct Marketing Specialist Name Role Phone Juan R Blount MD Primary Care Provide r Reason for Visit * Reason Comments Med Refill Encounter Details Date Type Department Care Team ([facility] st Contact Info) Description 06/27/2023 Refill [facility]EDS [address] [place] [address] Aggie Guan MD [address] [place] [address] Primary insomnia Social History Tobacco Use Types [...] 1:00 PM EDT Office Visit [facility] [address] [place] [address] Juan R Blount MD [address] [place] [address] documented as of this encounter Visit Diagnoses Diagnosis Primary insomnia Persistent disorder of initiating or maintaining sleep documented in this encounter Additional Health Concerns Assessment Noted Time PHQ-9 Depression Total Score: 8 11/20/19 23 9:41 AM EDT documented as of this encounter Care Teams Direct Marketing Specialist Relationship Specialty Start Date End Date Juan R Blount MD [address] [place] [address] PCP - General Internal Medicine 12/09/13 [facility] Endocrin[facility] 08/23/24 documented as of this encounter
--- OUTSIDE RECORDS SUMMARY | 2025-01-10 11:28 | XMS_ITS | Encounter Summary ---
Author Organization [employer] Address [address] [place] [address] Care Team Providers Care Transit Mixer Operator Name Role Phone Juan R Blount MD Primary Care Provide r Reason for Visit * Reason Comments Med Refill Encounter Details Date Type Department Care Team ([facility] st Contact Info) Description 02/04/2024 Refill [facility] [address] [place], [place] [phone] Lewis Carter MD [address] [place], [place] [phone] Social History Tobacco Use Types Packs/Day Years [...] Upcoming Encounters Date Type Department Care Team ([facility] st Contact Info) Description 01/25/2025 1:00 PM EDT Office Visit [facility] [address] [place] [address] Juan R Blount MD [address] [place] [address] documented as of this encounter Visit Diagnoses Not on filedocumented in this encounter Additional Health Concerns Assessment Noted Time PHQ-9 Depression Total Score: 3 01/15/20 24 1:38 PM EDT documented as of this encounter Care Teams Transit Mixer Operator Relationship Specialty Start Date End Date Juan R Blount MD [address] [place] [address] PCP - General Internal Medicine 12/09/13 [facility] Endocrin[facility] 08/23/24 documented as of this encounter
--- OUTSIDE RECORDS SUMMARY | 2025-01-10 11:28 | XMS_ITS | Encounter Summary ---
Author Organization [employer] Address [address] [facility] [address] [place] [address] Care Team Providers Care Hot Saw Operator Name Role Phone Juan R Blount MD Primary Care Provide r Encounter Details Date Type Department Care Team (Late Contact Info) Description 05/16/2022 Orders Only [facility] [address] [place], [place] [phone] Luz Marina Zaragoza LPN Social History Tobacco [...] Description 01/25/2025 1:00 PM EDT Office Visit [facility] [address] [place], [place] [phone] Juan R Blount MD [address] [place], [place] [phone] documented as of this encounter Procedures Procedure Name Priority Date/Time Associated Diagnosis Comments BI MAMMOGRAM DIAGNOSTIC TOMOSYNTHESIS LEFT Routine 05/28/2022 2:58 PM EST documented in this encounter Results * BI Mammogram Diagnostic Tomosynthesis Left (05/28/2022 2:58 PM EST) Anatomical Region Laterality Modality Breast Left Mammography 05/28/2022 2:58 PM EST Narrative 05/28/2022 4:46 PM EST [facility] [address] [place], [place] [address] Mammography Report Signed Patient: Torrie Sy MR#: [id number] : 1955 Acct:[id number] Age/Sex: 67 / F ADM Date: 05/28/22 Loc: HO.WALLYO Attending Dr: Juan R Bey MD Ordering Physician: Juan R Bey MD Results: 3.6MProbably Benign Finding - Short 6 M F/U Suggested Date of Service: 05/28/22 Follow Up: 6 Month F/U Procedure(s): MM tomosynthesis diagnostic LT Accession Number(s): [id number] cc: Juan R Bey MD EXAMINATION: MM [...] in OV> 05/28/22 1643 DD/ 1458 TD/TT: Airline Pilot Flight Instructor: SANTOS Procedure Note Donotuseinterpreter, Image - 05/28/2022 [facility]'s [address] [place] [address] Mammography Report Signed Patient: Torrie SyMR#: [id number] : 5Acct:[id number] Age/Sex: 67 / FADM Date: 05/28/22 Loc: HO.WALLYO Attending Dr: Juan R Bey MD Ordering Physician: Juan R Bey MD Results: 3.6MProbably Benign Finding - Short 6 M F/U Suggested Date of Service: 05/28/22Follow Up: 6 Month F/U Procedure(s): MM tomosynthesis diagnostic LT Accession Number(s): [id number] cc: Juan R Bey MD EXAMINATION: MM [...] in OV> 05/28/22 1643 DD/ 1458 TD/TT: Airline Pilot Flight Instructor: SANTOS [facility] External Provider IMG BI PROCEDURES Edited Result - Final documented in this encounter Visit Diagnoses Not on filedocumented in this encounter Care Teams Hot Saw Operator Relationship Specialty Start Date End Date Juan R Blount MD [address] [place] [address] PCP - General Internal Medicine 12/09/13 [facility] End[facility] 08/23/24 documented as of this encounter
--- OUTSIDE RECORDS SUMMARY | 2025-01-10 11:28 | XMS_ITS | Encounter Summary ---
Author Organization [employer] Address [address] [place] [address] Care Team Providers Care Fruit Peeler Name Role Phone Juan R Blount MD Primary Care Provide r Reason for Visit * Reason Comments Med Refill Encounter Details Date Type Department Care Team ([facility] st Contact Info) Description 08/26/2024 Refill [facility] MED & PEDS [address] [place], [place] [phone] Juan R Blount MD [address] [place] [address] Primary insomnia Social History Tobacco Use Types [...] Description 01/25/2025 1:00 PM EDT Office Visit [facility] [address] [place] [address] Juan R Blount MD [address] [place] [address] documented as of this encounter Visit Diagnoses Diagnosis Primary insomnia Persistent disorder of initiating or maintaining sleep documented in this encounter Additional Health Concerns Assessment Noted Time PHQ-9 Depression Total Score: 3 01/15/20 24 1:38 PM EDT documented as of this encounter Care Teams Fruit Peeler Relationship Specialty Start Date End Date Juan R Blount MD [address] [place] [address] PCP - General Internal Medicine 12/09/13 [facility] Endocrin[facility] 08/23/24 documented as of this encounter
--- OUTSIDE RECORDS SUMMARY | 2025-01-10 11:29 | XMS_ITS | Patient Health Record ---
Author Organization [facility] Address [address] [place] [address] Care Team Providers Care Oracle Reports Developer Name Role Phone Angelito Vega MD, Juan R Primary Care Provide r Caden Berry [phone] Reason For Referral No Information Encounters Encounter Location Date Provider Diagnosis [facility] [address] [place] [address] 05/24/2024 Caden Huffman Plan Of Treatment No Information Insurance Providers Payer Name Payer Address Payer Phone Subscriber Number Group Number Insured Name Patient Relationship to Insured Coverage Start Date Coverage End Date [facility] [address] [place] [phone] [id number] [employer] Self - patient is the insured
--- OUTSIDE RECORDS SUMMARY | 2025-01-10 11:29 | XMS_ITS | Encounter Summary ---
Author Organization [employer] Address [address] [facility] [address] [place] [address] Care Team Providers Care Tank House Operator Name Role Phone Juan R Blount MD Primary Care Provide r Reason for Visit * Reason Onset Date Comments Med Refill 12/03/2022 Encounter Details Date Type Department Care Team ([facility] st Contact Info) Description 12/03/2022 Refill [facility] [address] [place], [place] [phone] Juan R Blount MD [address] [place] [address] Asthma, unspecified asthma severity, unspecified whether complicated, [...] 01/25/2025 1:00 PM EDT Office Visit [facility] [address] [place] [address] Juan R Blount MD [address] [place] [address] documented as of this encounter Visit Diagnoses Diagnosis Asthma, unspecified asthma severity, unspecified whether complicated, unspecified whether persistent documented in this encounter Additional Health Concerns Assessment Noted Time PHQ-9 Depression Total Score: 8 11/20/19 23 9:41 AM EDT documented as of this encounter Care Teams Tank House Operator Relationship Specialty Start Date End Date Juan R Blount MD [address] [place] [address] PCP - General Internal Medicine 12/09/13 [facility] Endocrinology 08/23/24 documented as of this encounter
--- OUTSIDE RECORDS SUMMARY | 2025-01-10 11:29 | XMS_ITS | Clinical Summary ---
Author Organization [employer] Address [address] [place] [address] Care Team Providers Care Dark Room Attendant Name Role Phone Juan R Blount MD Primary Care Provide r Allergies Active Allergy Reactions Criticality Noted Date Comments Kurt Inhibitors Cough Acetaminophen Other reaction(s): rash Albuterol Other reaction(s): rash Insulin Other reaction(s): rash Iodine Other reaction(s): rash Latex Other reaction(s): unspecified Medroxyprogesterone Other reaction(s): rash Penicillin V Rash Low 01/07/2024 Medications Continuous Blood Gluc Correspondence Transcriber (FreeStyle Crystal 2 Gilmer) deviceIndications :Type 2 diabetes mellitus with hyperglycemia, with long-term current use of insulin ([facility]) 1 Device before breakfast, before lunch, and before evening meal. 1 each 023 Active Continuous Blood Gluc Sensor (FreeStyle Rcystal 2 Sensor) miscIndications:T ype 2 diabetes mellitus [...] hyperglycemia, with long-term current use of insulin ([facility]) TAKE 1 TABLET BY MOUTH EVERY MORNING 90 tablet 3 Active amLODIPine (Norvasc) 5 MG tabletIndications :Essential hypertension TAKE 1 TABLET BY MOUTH EVERY EVENING 90 tablet Active BD Pen Needle Janene U/F 32G X 4 MM miscIndications:T ype 2 diabetes mellitus without complication, with long-term current use of insulin ([facility]) USE DIRECTED FOUR TIMES DAILY 100 each Active TRUEplus Lancets 33G miscIndications:T ype 2 diabetes mellitus with hyperglycemia ([facility]),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 ([facility]) TEST BLOOD SUGAR FOUR TIMES DAILY 300 each Active glucose blood (FREESTYLE LITE) test stripIndications: Type 2 diabetes mellitus with hyperglycemia ([facility]),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 2 mL 3 06/20/2 025 Active gabapentin (Neurontin) 800 MG tabletIndications :Type 2 diabetes mellitus with hyperglycemia, with long-term current use of insulin ([facility]) TAKE 1 CAPSULE BY MOUTH THREE TIMES [...] AND EVENING 90 tablet 1 025 Active atorvastatin (Lipitor) 40 MG tabletIndications :Mixed hyperlipidemia TAKE 1 TABLET BY MOUTH AT BEDTIME 90 tablet 025 Active montelukast (Singulair) 10 MG tabletIndications :Wheezing TAKE 1 TABLET BY MOUTH EVERY EVENING 90 tablet 025 Active Umeclidinium [place] (Incruse Ellipta) 62.5 MCG/ACT aerosol powderIndications :Wheeze INHALE 1 PUFF BY MOUTH EVERY DAY AT THE SAME TIME RINSE MOUTH AFTER USING 1 Act 1 025 Active zolpidem (Ambien) 10 MG tabletIndications :Primary insomnia TAKE 1 TABLET BY MOUTH AT BEDTIME NEEDED FOR SLEEP 30 tablet 025 Active Umeclidinium [place] (Incruse Ellipta) 62.5 MCG/ACT aerosol powderIndications :Wheeze Inhale 1 Act (62.5 mcg) in the morning. AT THE SAME TIME RINSE MOUTH AFTER USING. 30 each 1 025 2024 Discontinued zolpidem (Ambien) 10 [...] hypertensive, diabetic and a smoker. Seen by Vegetable Handler Dr Sarmiento 10/20/2024 He ordered an ECHO [...] rare follicular cells seen in the sample, [place] category 1. She discussed with the patient that nondiagnostic results yield a 5-20% risk of malignancy. At this point the plan is to repeat the biopsy in about 3 months. [employer] Driver will arrange for repeat FNA left mid [...] 1:39 PM EDT): Patient was admitted to [facility] from 12/26-12/28/2023 For evaluation of intermittent right [...] the ER MRI Brain 12/28/2023 negative at [facility] Etiology ? Neuropathy, Lumbar radiculopathy Pt also [...] requested from Neurology She was seen at [facility] 08/2024 and was supposed to [...] Pt is now under the care of Construction Person Dr Holm last seen 05/11/2019 He ordered [...] Eye exam was last done on: 08/2022 [facility] No retinopathy Microalbumin checked on: 10/18/2024 was: [...] Eye exam was last done on: 08/2022 [facility] No retinopathy Microalbumin checked on: 07/24/2021 was: [...] Encounters Date Type Department Care Team Description 01/08/2025 Refill [facility] [address] [place] [address] Juan R Blount MD Type 2 diabetes mellitus without complication, with long-term current use of insulin ([facility]) 12/29/2024 Orders Only GENERIC EXTERNAL DATA DEPARTMENT Provider, Generic External Data 12/27/2024 Refill [facility] [address] [place] [address] Aggie Guan MD Primary insomnia 12/24/2024 Telephone [facility] MEDICINE [address], [place] [phone] Juliana Goode RN [facility] Neurology 12/23/2024 1:15 PM EDT Office Visit [facility] MEDIC[facility] [address], [place] [phone] Juan R Blount MD Type 2 diabetes mellitus with diabetic polyneuropathy, with long-term current use of insulin ([facility]) (Primary Dx); Right thyroid nodule; Abnormal ECG; Malignant neoplasm of right female breast, unspecified estrogen receptor status, unspecified site of breast ([facility]); Polyneuropathy associated with underlying disease ([facility]); Chronic midline low back pain without sciatica; Neck pain on right side; Preventative health care 12/23/2024 Travel 12/21/2024 Refill [facility] [address] [place] [address] Juan R Blount MD Wheeze 12/17/2024 Refill [facility] [address] [place] [address] Juan R Blount MD Asthma, unspecified asthma severity, unspecified whether complicated, unspecified whether persistent 12/14/2024 Orders Only GENERIC EXTERNAL DATA DEPARTMENT Provider, Generic External Data 12/09/2024 Refill [facility] [address] [place] [address] Juan R Blount MD Mixed hyperlipidemia; Wheezing 12/02/2024 Telephone [facility] [address] [place] [address] Juan R Blount MD [facility] QUESTIONS 11/12/2024 Refill [facility] [address], [place] [phone] Juan R Blount MD Primary insomnia 11/10/2024 Orders Only GENERIC EXTERNAL DATA DEPARTMENT Provider, Generic External Data 11/10/2024 Refill [facility] [address] [place] [address] Juan R Blount MD Essential hypertension 11/09/2024 Refill [facility] [address], [place] [phone] Juan R Blount MD 10/28/2024 Refill [facility] [address] [place] [address] Elham Fuentes MD Asthma, unspecified asthma severity, unspecified whether complicated, unspecified whether persistent 10/19/2024 Telephone [facility] [address] [facility] [place] [address] Prisca Singh, RN Care Coordination 10/18/2024 Orders Only GENERIC EXTERNAL DATA DEPARTMENT Provider, Generic External Data 10/12/2024 10:30 AM EDT Office Visit [facility] MEDICINE [address] [place] [address] Juan R Blount MD Preoperative examination (Primary Dx); Abnormal ECG; Type 2 diabetes mellitus without complication, with long-term current use of insulin ([facility]) 10/12/2024 Travel 10/11/2024 Telephone [facility] MEDICINE [address] [place] [address] Juan R Blount MD chart prep 10/10/2024 Refill [facility] [address] [facility] [place] [address] Maria Del Carmen Reese MD Wheeze 10/10/2024 Refill [facility] [address] [facility] [place] [address] Juan R Blount MD Type 2 diabetes mellitus with hyperglycemia, with long-term current use of insulin ([facility]); Wheeze from Last 3 Months Immunizations Immunization Administration [...] Description 01/25/2025 1:00 PM EDT Office Visit [facility] MEDICINE [address], [place] [phone] Juan R Blount MD [address] [place] [address] Health Maintenance Due Date Last Done Comments [...] SDOH Screening 01/14/2025 01/15/2024 Diagnostic Breast Imaging 06/26/20252024, 09/01/2024, 09/01/2024, Additional history exists Mammogram 06/26/2025 12/27/2024, 08/19, 09/01/2024, Additional history exists Alcohol/Substance Use Screening 10/12/2025 [...] Procedure Name Priority Date/Time Associated Diagnosis Comments HEMATOXYLIN AND EOSIN STAIN Routine 12/29/2024 12:49 PM EDT BI MM SURGICAL SPECIMEN Routine 12/29/2024 12:45 PM EDT NM SENTINEL NODE W IMAGING Routine 12/29/2024 8:23 AM EDT GLUCOSE, WHOLE BLOOD Routine 12/29/2024 7:43 AM EDT BI MAMMOGRAM DIAGNOSTIC RIGHT Routine 12/27/2024 11:13 AM EDT US BREAST NEEDLE LOC RT - RFID Routine 12/27/2024 10:32 AM EDT GLUCOSE, WHOLE BLOOD Routine 12/14/2024 11:00 AM [...] with long-term current use of insulin (CMS/HCC) HEPATITIS PANEL, GENERAL Routine 02/05/2024 9:25 AM EDT from Last 3 Months or Most Recently Relevant to Health Maintenance Results * Hematoxylin and Eosin Stain (12/29/2024 12:49 PM EDT) 12/29/2024 12:4 9 PM EDT 12/29/2024 12:59 PM EDT [facility] - 01/05/2025 4:58 PM EDT ----- ------- Name: Torrie Sy Age/Sex: 69/F [facility] 1955 [id number]#: [id number] Attend Dr: George Bearden MD Re12/29/24 Status: [facility] Location: [facility] Disch: ----- ------- SPEC : [id number] RECD: 12/29/24-1259 STATUS: AMY WEBSTER NUM: [id number] HAILEY: 12/29/24-1249 [facility] DR: George Bearden MD ENTERED: 12/29/24-1304 SP TYPE: Surgical OTHR DR: Juan R Bey MD ORDERED: HE Stain/6, Gross Micro L3, Gross Micro L5/5, Cytokeratin/6, ER/4, FL, IHC/3, Add. immunos/2, IHC ER/FL/Her2N/6, CK5-6/4, E-cadherin, Ki-67, [id number] Diagnosis A. 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 -Final anterior margin is free of tumor (positive in A, negative in F). -Ductal carcinoma in situ (DCIS), nuclear grade 1 -Posterior margin is positive for DCIS -Flat epithelial atypia. -Intraductal papilloma, columnar cell change and hyperplasia, and fibrocystic change with apocrine metaplasia. -Biopsy site changes. B. Lymph node, sentinel #1, count 1497, biopsy: -One lymph node, negative for metastatic carcinoma. C. Axillary tissue, additional, excision: -Fibroadipose tissue; no lymph node identified. D. Lymph node, sentinel #2, count 273, biopsy: -One lymph node, negative for metastatic carcinoma. E. Lymph node, sentinel #3, count 204, biopsy: -One lymph node, negative for metastatic carcinoma. F. Breast, anterior inferior margin, reexcision: -Ductal carcinoma in situ (DCIS), nuclear grade 1 -Anterior inferior margin is free of DCIS. -No invasive tumor seen. -Intraductal papilloma with usual ductal hyperplasia. -Fibrocystic change with apocrine metaplasia, and columnar cell change and hyperplasia. Synoptic Data - Invasive Breast Cancer Procedure: Lumpectomy, margin revision, lymph nodes Laterality: Right Tumor size: 18 mm Tumor focality: Unifocal Extent of tumor Skin: N/A Nipple: N/A Skeletal muscle: N/A DCIS: Present CONTINUED ON NEXT PAGE ----- ------- Name: Torrie Sy Age/Sex: 69/F : 1955 [id number] Unit#: [id number] Attend Dr: George Bearden MD Re12/29/24 Status: [facility] Location: [facility] Disch: ----- ------- SPEC : [id number] RECD: 12/29/24 STATUS: AMY WEBSTER NUM: [id number] HAILEY: 12/29/24 [facility] DR: George Bearden MD ENTERED: 12/29/24858 SP TYPE: Surgical OTHR DR: Juan R Bey MD ORDERED: HE Stain/6, Gross Micro L3, Gross Micro L5/5, Cytokeratin/6, ER/4, FL, IHC/3, Add. immunos/2, IHC ER/FL/Her2N/6, CK5-6/4, E-cadherin, Ki-67, [id number] Diagnosis (Continued) Nuclear grade: 1 Extent: EIC negative LCIS: Not identified Type of invasive carcinoma: Invasive ductal carcinoma with lobular features. Histologic grade (MSBR): 2 Tubule formation score: 2 Nuclear pleomorphism score: 2 Mitotic rate score: 2 Lymphatic and/or vascular invasion: Not identified Margin, inv tumor: Final margin negative Closest margin: Anterior (Tumor at anterior in A, no tumor in re-excision F) Margin, DCIS: Closest margin: DCIS present at posterior margin A DCIS > 10 mm to new anterior inferior margin F Lymph nodes Number examined: 3 Dunellen nodes: 3 Axillary nodes: 0 Number involved: 0 With macrometastases: N/A With micrometastases: N/A With isolated tumor cells: 0 Extranodal extension: N/A Size of largest met. deposit: N/A Treatment effect Breast: N/A (No known presurgical therapy) Lymph nodes: N/A (No known presurgical therapy) TNM: pT1c pN0 (sn) (AJCC 8th ed.) Ancillary studies: Immunohistochemical stains on tumor as follows: -Estrogen Receptor: POSITIVE (% Positive cells: 100, average intensity: Strong) -Progesterone Receptor: POSITIVE (% Positive cells: 15, average intensity: Moderate) -HER2: EQUIVOCAL ( 2 +) (% Positive cells: 15, average intensity: weak, incomplete) -Ki67: HIGH (% Positive cells: = or >20, 25-30%) -Controls (external and internal): Appropriate HER2 FISH pending; addendum to follow. Note: For tumors greater than 5 mm in size with negative lymph nodes, prognostic genetic testing may be appropriate to guide further management. CONTINUED ON NEXT PAGE ----- ------- Name: Torrie Sy Age/Sex: 69/F : 1955 Unit#: [id number] Attend Dr: George Bearden MD Re12/29/24 Status: [facility] Location: [facility] Disch: ----- ------- SPEC : [id number] RECD: 12/29/24-125 STATUS: AMY LEONVioleta NUM: [id number] HAILEY: 12/29/24-1249 [facility] DR: George Bearden MD ENTERED: 12/29/24-1304 SP TYPE: Surgical OTHR DR: Juan R Bey MD ORDERED: HE Stain/6, Gross Micro L3, Gross Micro L5/5, Cytokeratin/6, ER/4, FL, IHC/3, Add. immunos/2, IHC ER/FL/Her2N/6, CK5-6/4, E-cadherin, Ki-67, [id number] Clinical History Neoplasm of right breast Microscopic Description Microscopic sections show A has an infiltration of tubules, cords and trabeculae of tumor cells within fibrous tissue and adipose tissue. The tumor cells show moderate vesicular cytoplasm with large intra cytoplasmic vacuoles and enlarged irregular nuclei with nucleoli. The tumor cells are positive with E-cadherin immunostain. An intraductal papilloma with florid ductal hyperplasia in F shows patchy positive CK5/6 and ER staining. DCIS in A and F are negative on CK5/6 and diffusely positive with ER. Pankeratin immunostains on B, D and E are negative for metastatic carcinoma. Controls stain appropriately. Material Received A. Right breast lumpectomy B. Dunellen node #1, count 1497 C. Additional axillary tissue D. Dunellen node #2, count 273 E. Dunellen node #3, count 204 F. Anterior inferior margin Gross Description Received in six parts. Part A: Received fresh, for intraoperative consultation, labeled right breast lumpectomy is a 8.0 (medial-lateral) x 7.0 (superior-inferior) x 2.5-3.0 (anterior- posterior) cm portion of focally firm, indurated and nodular yellow-red lobular fibrofatty breast tissue. As stated on the specimen container and specimen requisition slip a short stitch denotes the superior margin, a long stitch denotes the lateral margin and a loop stitch denotes the posterior margin. The margins are inked as follows: anterior-black, posterior-red, superior-blue, inferior-green, medial-orange and lateral-yellow. The specimen is serially sectioned to reveal predominantly homogeneous bean-yellow lobular fat with a lesser amount of zelaya-white fibrous breast tissue. The breast tissue corresponding to the area harboring the Hologic LOC[employer]izer RFID tag and biopsy clip seen on the specimen radiograph is remarkable for a peripherally ill-defined, rubbery, firm and focally indurated zelaya-white tumor measuring 1.5 (anterior-posterior) x 1.4 (superior-inferior) x 1.0 (lateral- medial) cm which closely approaches the anterior-inferior margin of resection. The RFID tag is identified medial to the focus of residual tumor while the open coil clip is identified in a 0.6 cm cavity consistent with prior biopsy site along with mucogelatinous material and blood. No other cysts, lesions or nodules are identified. Bank Secrecy Act Officer sections are submitted in CONTINUED ON NEXT PAGE ----- ------- Name: Torrie Sy Age/Sex: 69/F : 1955 [facility]#: [id number] Unit#: [id number] Attend Dr: George Bearden MD Re12/29/24 Status: [facility] Location: [facility] Disch: ----- ------- SPEC : [id number] RECD: 12/29/24 STATUS: AMY WEBSTER NUM: [id number] HAILEY: 12/29/24 [facility] DR: George Bearden MD ENTERED: 12/29/24 SP TYPE: Surgical OTHR DR: Juan R Bey MD ORDERED: HE Stain/6, Gross Micro L3, Gross Micro L5/5, Cytokeratin/6, ER/4, FL, IHC/3, Add. immunos/2, IHC ER/FL/Her2N/6, CK5-6/4, E-cadherin, Ki-67, [id number] Gross Description (Continued) cassettes A1-A10 from medial to lateral to include the area of residual tumor and biopsy entirely submitted from slices 5-8 as follows: A1 medial, slice 1; A2 anterior, slice 5; A3 posterior, slice 5; A4 anterior, slice 6; A5 anterior, slice 7; A6 anterior, slice 8; A7 inferior, slice 6 and posterior, slice 8; A8 superior, slice 7; A9 anterior, slice 9; A10 lateral, slice 10. The intraoperative diagnosis is reported to Dr. Bearden as mass and markers identified, close to anterior and inferior margins by Dr. Talley.(PK) Part B: Received in formalin labeled sentinel node #1, count 1497 is a 3.5 cm in greatest dimension portion of bean-yellow lobular adipose tissue sectioned to reveal a 0.8 cm in greatest dimension zelaya-pink lymph node with congested and hemorrhagic pink-red cut surfaces, entirely submitted in a cassette labeled B1. Part C: Received in formalin labeled additional axillary tissue is a 3.5 x 3.0 x 0.3- 0.5 cm portion of focally congested, yellow, red-maroon fibroadipose tissue and fibrovascular tissue, sectioned to reveal focally congested and hemorrhagic yellow-red lobular fat. No lymph nodes are identified. Bank Secrecy Act Officer sections are submitted in a cassette labeled C1. Part D: Received in formalin labeled sentinel node #2, count 273 is a 2.5 cm in greatest dimension portion of focally congested and hemorrhagic yellow, red-maroon lobular adipose tissue, sectioned to reveal a 1.0 x 0.3 x 0.3 cm zelaya-pink nodule suspicious for lymph node, entirely submitted in cassette D1. Part E: Received in formalin labeled sentinel node #3, count 204 is a 3.5 cm in greatest dimension portion of focally congested and hemorrhagic yellow, red-maroon lobular fibroadipose tissue versus fibrovascular tissue sectioned to reveal a a 1.1 x 0.4 x 0.4 cm zelaya-pink lymph node, sectioned and entirely submitted in a cassette labeled E1. Part F: Received in formalin labeled anterior inferior margin is a 6.5 x 5.5 x 1.0-1.5 cm concave and convex flap of zelaya, white-pink and bean-yellow lobular fibrofatty breast tissue. As stated on the specimen container and following consultation with Dr. Bearden, a short stitch denotes the superior margin and a long stitch denotes the lateral margin. The concave surface is focally cauterized, zelaya, white-pink and bean-yellow consistent with CONTINUED ON NEXT PAGE ----- ------- Name: Torrie Sy Age/Sex: 69/F : 1955 Unit#: [id number] Attend Dr: George Bearden MD Re12/29/24 Status: [facility] Location: [facility] Disch: ----- ------- SPEC : [id number] RECD: 12/29/24 STATUS: AMY WEBSTER NUM: [id number] HAILEY: 12/29/24 [facility] DR: George Bearden MD ENTERED: 12/29/24 SP TYPE: Surgical OTHR DR: Juan R Bey MD ORDERED: HE Stain/6, Gross Micro L3, Gross Micro L5/5, Cytokeratin/6, ER/4, FL, IHC/3, Add. immunos/2, IHC ER/FL/Her2N/6, CK5-6/4, E-cadherin, Ki-67, [id number] Gross Description (Continued) prior biopsy side. The convex surface consistent with the new anterior-inferior margin is smooth and glistening, bean-yellow and zelaya-pink. The anterior margin is marked with black ink, the inferior margin is marked with green ink and the posterior margin is marked with red ink. The specimen is serially sectioned to reveal predominantly homogeneous bean- yellow lobular fat with scant delicate, focally rubbery zelaya-white fibrous breast tissue towards the anterior-inferior aspect with a 0.1 cm micronodular focus along the prior biopsy side. Bank Secrecy Act Officer sections perpendicular to the anterior-inferior margins are submitted in cassettes F1-F10, from medial to lateral, respectively. [facility] Interpretive Information All tests are performed on formalin-fixed, paraffin-embedded tissue using automated immunostain methods: Estrogen receptor: Clone SP1; [place] [employer] DAB Progesterone receptor: Clone 1E2; [place] [employer] DAB HER2: FDA-approved [place] PATH[employer]AY anti-HER-2/gail (4B5) Monoclonal; [employer] DAB Positive and negative controls are performed and evaluated for each assay, and all testing is performed in accordance with the most recent ASCO/CAP guidelines. Results reflect status of invasive carcinoma component, unless otherwise specified (as in DCIS). Fixation times range between 6 hours and 72 hours unless otherwise specified. ER and PgR immunostains are scored as Positive (> or = 10% of tumor cell nuclei), Low positive (1-10% of tumor cell nuclei) or Negative (< 1% of tumor cell nuclei), with the percentage of immunopositive nuclei and the nuclear staining intensity given in parentheses. The Negative category is further delineated by the presence or absence of internal positive control tissue. Ki-67 immunostains are scored as High = or > 20% positive nuclei and Low < 20% positive nuclei. Regarding HER2 immunoassays, the Positive category correlates with intense, complete membranous staining of more than 10% of the carcinomatous cells, and is designated as 3+. The Negative category (0) includes negative and incomplete faint/barely perceptible staining in 10% tumor cells or less. The Low category (1+) includes incomplete faint/barely perceptible staining in > 10% of tumor cells. The Equivocal (2+) category reflects weak to moderate incomplete, or nonuniform circumferential staining, in >10% tumor cells, or strong circumferential staining in less than 10% of the tumor. The Equivocal category includes a minor subset of patients with HER2 gene amplification, and confirmatory testing for gene amplification by FISH methodology will be reflexively performed on all Equivocal (2+) cases. NOTE: Some or all of the tests utilized in this case are laboratory developed tests (LDT), and may use class I analyte specific reagents (ASR). These tests were developed for clinical CONTINUED ON NEXT PAGE ----- ------- Name: Torrie Sy Age/Sex: 69/F : 1955 Unit#: [id number] Attend Dr: George Bearden MD Re12/29/24 Status: [facility] Location: [facility] Disch: ----- ------- SPEC : [id number] RECD: 12/29/24 STATUS: AMY WEBSTER NUM: [id number] HAILEY: 12/29/[address]: George Bearden MD ENTERED: 12/29/24 SP TYPE: Surgical OTHR DR: Juan R Bey MD ORDERED: HE Stain/6, Gross Micro L3, Gross Micro L5/5, Cytokeratin/6, ER/4, FL, IHC/3, Add. immunos/2, IHC ER/FL/Her2N/6, CK5-6/4, E-cadherin, Ki-67, [id number] Gross Description (Continued) purposes and their performance characteristics determined by this lab on tissue fixed in 10% neutral buffered formalin. Other fixatives specified (CytoLyt or decalcification) have not been validated, and results should be interpreted with caution in the diagnostic context of the case. This lab is certified under the Clinical Laboratory Improvement Amendments of 1988 (CLIA) as qualified to perform high complexity clinical laboratory testing. References: Marie FISHER, Roosevelt MAYES, et al. Estrogen and Progesterone Receptor Testing in Breast Cancer: [place] Society of Clinical Oncology/College of [place] Pathologists Guideline Update. Arch of Pathol Lab Med. 2020; 144(5): 545-563. Arely CHILDERS, Roosevelt BABIN, Marie FISHER, et al. Her2 testing in breast cancer: [place] Society of Clinical Oncology/College of [place] Pathologists clinical practice guideline focused update. Arch Pathol Lab Med. 2018; 142(11): 7116-4038. Mitch N, Lion P, et al. Adjuvant abemaciclib combined with endocrine therapy for high- risk early breast cancer: updated efficacy and Ki-67 analysis [facility]. Lita Oncol. 2020;32(12):7430-3388. Roosevelt MAYES, Yossi MADRIGAL, et al. ASCO/CAP Guideline Recommendations for Immunohistochemical Testing of Estrogen and Progesterone Receptors in Breast Cancer. J Clin Oncol, 28 (16), 2010: 8309-3994. This case was reviewed intradepartmentally. Results given to Dr. Bearden by secure text by Dr. Talley on 01/05/2025 at 4:43 pm. Special studies ordered and performed: Immunostains for CK 5/6 and ER on A3, F4, and F10; ER, FL, HER2 and Ki 67 on A5; pankeratin on B1, D1 and E1. IHC S/NG Disclaimer NOTE: Unless otherwise stated, all tissue is formalin-fixed and paraffin-embedded. Some or all of the immunohistochemical tests reported herein may have been developed and their performance characteristics determined by [facility]. They have not been cleared or approved by the U.S. Food and Drug Administration (FDA). However, the FDA has determined that such clearance or approval is not necessary. This laboratory is certified under the Clinical Laboratory Improvement Amendments of 1988 (CLIA) as qualified to perform high complexity clinical laboratory testing. CONTINUED ON NEXT PAGE ----- ------- Name: Torrie Sy Age/Sex: 69/F : 1955 Unit#: [id number] Attend Dr: George Bearden MD Re12/29/24 Status: [facility] Location: [facility] Disch: ----- ------- SPEC : [id number] RECD: 12/29/24 STATUS: AMY WEBSTER NUM: [id number] HAILEY: 12/29/24 [facility] DR: George Bearden MD ENTERED: 12/29/24721 SP TYPE: Surgical OTHR DR: Juan R Bey MD ORDERED: HE Stain/6, Gross Micro L3, Gross Micro L5/5, Cytokeratin/6, ER/4, FL, IHC/3, Add. immunos/2, IHC ER/FL/Her2N/6, CK5-6/4, E-cadherin, Ki-67, QON2COL Copies To: Juan R Bey MD [address] [id number] George Bearden MD [facility] [address] [place] [phone] ----- ------- Signed (signature on file) Anna Mayank 01/05/25 1658 ----- ------- END OF REPORT us Generic External Data Provider LAB BLOOD ORDERAB LES Final Result [facility] [address] [place] [phone] * BI MM SURGICAL SPECIMEN (12/29/2024 12:45 PM EDT) Anatomical Region Laterality Modality Breast Bilateral Mammography 12/29/2024 12:4 5 PM EDT Narrative 12/29/2024 1:09 PM EDT [address] [address] [id number] Mammography Report Signed Patient: Torrie Sy MR#: [id number] : 1955 Acct:[id number] Age/Sex: 69 / F ADM Date: 12/29/24 Loc: HO.SSS Attending Dr: George Bearden MD Ordering Physician: George Bearden MD Results: Date of Service: 12/29/24 Follow Up: Procedure(s): MM surgical specimen Accession Number(s): [id number] cc: Juan R Bey MD; George Bearden MD Single right breast specimen radiograph demonstrates the tag and the marker clip within the specimen. Electronically signed by: Gabriella Campuzano DO 12/29/2024 01:06 PM EDT RP Workstation: [employer] Dictated By: Gabriella Campuzano DO Signed By: <Electronically signed by Gabriella Campuzano DO in OV> 12/29/24 1306 DD/ 1245 TD/TT: 12/29/24 1300 Supervisor Microwave: Procedure Note Donotuseinterpreter, Image - 12/29/[address] [address] [id number] Mammography Report Signed Patient: Torrie SyMR#: [id number] : 5Acct:[id number] Age/Sex: 69 / FADM Date: 12/29/24 Loc: HO.SSS Attending Dr: George Bearden MD Ordering Physician: George Beardenesults: Date of Service: 12/29/24Follow Up: Procedure(s): MM surgical specimen Accession Number(s): [id number] cc: Juan R Bey MD; George Bearden MD Single right breast specimen radiograph demonstrates the tag and the marker clip within the specimen. Electronically signed by: Gabriella Campuzano DO 12/29/2024 01:06 PM EDT RP Dictated By: Gabriella Campuzano DO Signed By: <Electronically signed by Gabriella Campuzano DO in OV> 12/29/24 1306 DD/ 1245 TD/TT: 12/29/24 1300 Supervisor Microwave: us [facility] External Provider IMG BI PROCEDURES Final Result * NM SENTINEL NODE W IMAGING (12/29/2024 8:23 AM EDT) Anatomical Region Laterality Modality Nuclear Medicine 12/29/2024 8:23 AM EDT Narrative 12/29/2024 12:34 PM EDT [address] [address] Nuclear Medicine Report Signed Patient: Torrie Sy MR#: [id number] : 1955 Acct:[id number] Age/Sex: 69 / F ADM Date: 12/29/24 Loc: [facility] Attending Dr: George Bearden MD Ordering Physician: George Bearden MD Date of Service: 12/29/24 Procedure(s): NM sentinel node w imaging Accession Number(s): [id number] cc: Juan R Bey MD; George Bearden MD Reason for Exam: RIGHT BREAST EXAMINATION: Nuclear medicine sentinel node with imaging. CLINICAL INDICATION: Right breast invasive ductal carcinoma COMPARISON: None. TECHNIQUE: Informed consent was obtained from the patient by Dr. Guajardo. 4% lidocaine was applied around the right breast areola 30 minutes before the central node procedure. The area around the right breast areola was cleaned and draped in usual sterile manner. 0.5 mCi of 99m technetium lympho seek divided in 4 equal doses was injected in 4 quadrants around the right breast areola and imaging obtained 30 minutes later. Patient tolerated procedure extremely well. FINDINGS: There are 4 areas of isotope activity in 4 quadrants around the right breast areola. A solitary dominant sentinel is seen in the right anterior axilla. Minimal trace activity seen in the right axillary apex. No activity seen along the internal mammary site. NM/NM sentinel node w imaging IMPRESSION: Solitary sentinel node visualized in the right anterior axilla on right breast lymphoscintigraphy. Electronically signed by: Simon Arnold MD 12/29/2024 12:32 PM EDT RP Dictated By: Simon Arnold MD Signed By: <Electronically signed by Simon Arnold MD in OV> 12/29/24 1232 DD/ 0823 TD/TT: 12/29/24 0900 Supervisor Microwave: [place] Procedure Note Donotuseinterpreter, Image - 12/29/2024 [place] [address] Nuclear Medicine Report Signed Patient: Torrie SyMR#: [id number] : 5Acct:[id number] Age/Sex: 69 / FADM Date: 12/29/24 Loc: [facility] Attending Dr: George Bearden MD Ordering Physician: George Bearden MD Date of Service: 12/29/24 Procedure(s): NM sentinel node w imaging Accession Number(s): [id number] cc: Juan R Bey MD; George Bearden MD Reason for Exam: RIGHT BREAST EXAMINATION: Nuclear medicine sentinel node with imaging. CLINICAL INDICATION: Right breast invasive ductal carcinoma COMPARISON: None. TECHNIQUE: Informed consent was obtained from the patient by Dr. Guajardo. 4% lidocaine was applied around the right breast areola 30 minutes before the central node procedure. The area around the right breast areola was cleaned and draped in usual sterile manner. 0.5 mCi of 99m technetium lympho seek divided in 4 equal doses was injected in 4 quadrants around the right breast areola and imaging obtained 30 minutes later. Patient tolerated procedure extremely well. FINDINGS: There are 4 areas of isotope activity in 4 quadrants around the right breast areola. A solitary dominant sentinel is seen in the right anterior axilla. Minimal trace activity seen in the right axillary apex. No activity seen along the internal mammary site. NM/NM sentinel node w imaging IMPRESSION: Solitary sentinel node visualized in the right anterior axilla on right breast lymphoscintigraphy. Electronically signed by: Simon Arnold MD 12/29/2024 12:32 PM EDT RP Dictated By: Simon Arnold MD Signed By: <Electronically signed by Simon Arnold MD in OV> 12/29/24 1232 DD/ 2 TD/TT: 12/29/24 09 Supervisor Microwave: JENARO [facility] External Provider IMG NM PROCEDURES Final Result * (ABNORMAL) Glucose, Whole Blood (12/29/2024 7:43 AM EDT) Glucose, Whole Blood 239(H) 60 - 115 mg/dL [facility] Comment:METER #: [id number] 12/29/2024 7:43 AM EDT 12/29/2024 7:47 AM EDT Generic External Data Provider LAB BLOOD ORDERAB LES Final Result Performing Organization Address City/State/[facility] Co de Phone Number [facility] [address] [place] [phone] * Mammogram Diagnostic Right (12/27/2024 11:13 AM EDT) Anatomical Region Laterality Modality Breast Right Mammography 12/27/2024 11:1 3 AM EDT Narrative 12/27/2024 1:02 PM EDT [address] [place] [address] Mammography Report Signed Patient: Torrie Sy MR#: [id number] : 1955 Acct:[id number] Age/Sex: 69 / F ADM Date: 12/27/24 Loc: HO.MAMMO Attending Dr: George Bearden MD Ordering Physician: George Bearden MD Results: 6Know n Biopsy Proven Malignancy Date of Service: 12/27/24 Follow Up: Surgical Consult Procedure(s): MM diagnostic mammo unilat RT Accession Number(s): [id number] cc: Juan R Bey MD; George Bearden MD EXAMINATION/PROCEDURE: 1. ULTRASOUND GUIDED RFID LOCALIZATION BREAST, RIGHT 2. Postprocedure digital mammogram UNILATERAL RIGHT CLINICAL INFORMATION: Patient is status post stereotactic needle core biopsy at outside facility on September 23, 2024 for a right breast finding, with open coil Hydromark clip placement. Pathology results showed invasive ductal carcinoma with tubulolobular features. Patient is here today for RF tag LOCalizer placement. COMPARISON: Right breast stereotactic needle core biopsy on September 23, 2024. Right mammogram/ultrasound workup on September 01, 2024. TECHNIQUE NEEDLE LOC: Proper informed consent is obtained from the patient after discussion of the procedure, potential risks and complications, and alternatives including declining the procedure today. Patient was given an opportunity for questions. The patient appeared to understand. The patient consented to the procedure and signed the consent form. GUIDANCE: Ultrasound APPROACH: Lateral. TARGET: Biopsy-proven right breast mass at 9 o'clock position at 6 cm from the nipple associated with open coil clip. ANESTHESIA: carbonated lidocaine 1%: 10 cc. LOCALIZATION SYSTEM: -[employer] LOCallizer Wire-Free Guidance System with 12g needle applicator. -Length: 7 cm. -RADIOFREQUENCY TAG: ID # [id number] RF Tag ID confirmed with LOCalizer Guidance System prior to placement. The skin is prepped and local anesthesia administered. The needle is positioned and RFID tag deployed. Final images demonstrate the LOCalizer RF tag to reside in the vicinity of the biopsy proven malignancy associated with open coil clip. The patient tolerated the procedure well and had no immediate complications. Dressing placed and home instructions reviewed. MM/MM diagnostic mammo unilat RT IMPRESSION: -Status post right breast RFID localization (tag ID#[id number]). Electronically signed by: Jonathan Bacon MD 12/27/2024 01:00 PM EDT Dictated By: Jonathan Bacon MD Signed By: <Electronically signed by Jonathan Bacon MD in OV> 12/27/24 1300 DD/ 1113 TD/TT: 12/27/24 1120 Supervisor Microwave: Procedure Note Donotuseinterpreter, Image - 12/27/2024 [facility] [address] [place] [address] Mammography Report Signed Patient: Torrie SyMR#: [id number] : 5Acct:[id number] Age/Sex: 69 / FADM Date: 12/27/24 Loc: [facility]AM[facility] Attending Dr: George Bearden MD Ordering Physician: George Bearden MDResults: 6Know n Biopsy Proven Malignancy Date of Service: 12/27/24Follow Up: Surgical Consult Procedure(s): MM diagnostic mammo unilat RT Accession Number(s): [id number] cc: Juan R Bey MD; George Bearden MD EXAMINATION/PROCEDURE: 1. ULTRASOUND GUIDED RFID LOCALIZATION BREAST, RIGHT 2. Postprocedure digital mammogram UNILATERAL RIGHT CLINICAL INFORMATION: Patient is status post stereotactic needle core biopsy at outside facility on September 23, 2024 for a right breast finding, with open coil Hydromark clip placement. Pathology results showed invasive ductal carcinoma with tubulolobular features. Patient is here today for RF tag LOCalizer placement. COMPARISON: Right breast stereotactic needle core biopsy on September 23, 2024. Right mammogram/ultrasound workup on September 01, 2024. TECHNIQUE NEEDLE LOC: Proper informed consent is obtained from the patient after discussion of the procedure, potential risks and complications, and alternatives including declining the procedure today. Patient was given an opportunity for questions. The patient appeared to understand. The patient consented to the procedure and signed the consent form. GUIDANCE: Ultrasound APPROACH: Lateral. TARGET: Biopsy-proven right breast mass at 9 o'clock position at 6 cm from the nipple associated with open coil clip. ANESTHESIA: carbonated lidocaine 1%: 10 cc. LOCALIZATION SYSTEM: -[employer] LOCallizer Wire-Free Guidance System with 12g needle applicator. -Length: 7 cm. -RADIOFREQUENCY TAG: ID # [id number] RF Tag ID confirmed with LOCalizer Guidance System prior to placement. The skin is prepped and local anesthesia administered. The needle is positioned and RFID tag deployed. Final images demonstrate the LOCalizer RF tag to reside in the vicinity of the biopsy proven malignancy associated with open coil clip. The patient tolerated the procedure well and had no immediate complications. Dressing placed and home instructions reviewed. MM/MM diagnostic mammo unilat RT IMPRESSION: -Status post right breast RFID localization (tag ID#[id number]). Electronically signed by: Jonathan Bacon MD 12/27/2024 01:00 PM EDT Dictated By: Jonathan Bacon MD Signed By: <Electronically signed by Jonathan Bacon MD in OV> 12/27/24 1300 DD/ 1113 TD/TT: 12/27/24 1120 Supervisor Microwave: [facility] External Provider IMG BI PROCEDURES Edited Result - Final * US breast needle loc RT - RFID (12/27/2024 10:32 AM EDT) Anatomical Region Laterality Modality Abdomen Ultrasound 12/27/2024 10:3 2 AM EDT Narrative 12/27/2024 1:02 PM EDT [address] [place] [address] Ultrasound Report Signed Patient: Torrie Sy MR#: [id number] : 1955 Acct:[id number] Age/Sex: 69 / F ADM Date: 12/27/24 Loc: HO.WALLYO Attending Dr: George Bearden MD Ordering Physician: George Bearden MD Date of Service: 12/27/24 Procedure(s): US Breast RF Tag Device Right Accession Number(s): [id number] cc: Juan R Bey MD; George Bearden MD Reason for Exam: EXAMINATION/PROCEDURE: 1. ULTRASOUND GUIDED RFID LOCALIZATION BREAST, RIGHT 2. Postprocedure digital mammogram UNILATERAL RIGHT CLINICAL INFORMATION: Patient is status post stereotactic needle core biopsy at outside facility on September 23, 2024 for a right breast finding, with open coil Hydromark clip placement. Pathology results showed invasive ductal carcinoma with tubulolobular features. Patient is here today for RF tag LOCalizer placement. COMPARISON: Right breast stereotactic needle core biopsy on September 23, 2024. Right mammogram/ultrasound workup on September 01, 2024. TECHNIQUE NEEDLE LOC: Proper informed consent is obtained from the patient after discussion of the procedure, potential risks and complications, and alternatives including declining the procedure today. Patient was given an opportunity for questions. The patient appeared to understand. The patient consented to the procedure and signed the consent form. GUIDANCE: Ultrasound APPROACH: Lateral. TARGET: Biopsy-proven right breast mass at 9 o'clock position at 6 cm from the nipple associated with open coil clip. ANESTHESIA: carbonated lidocaine 1%: 10 cc. LOCALIZATION SYSTEM: -[employer] LOCallizer Wire-Free Guidance System with 12g needle applicator. -Length: 7 cm. -RADIOFREQUENCY TAG: ID # [id number] RF Tag ID confirmed with LOCalizer Guidance System prior to placement. The skin is prepped and local anesthesia administered. The needle is positioned and RFID tag deployed. Final images demonstrate the LOCalizer RF tag to reside in the vicinity of the biopsy proven malignancy associated with open coil clip. The patient tolerated the procedure well and had no immediate complications. Dressing placed and home instructions reviewed. US/US Breast RF Tag Device Right IMPRESSION: -Status post right breast RFID localization (tag ID#[id number]). Electronically signed by: Jonathan Bacon MD 12/27/2024 01:00 PM EDT Dictated By: Jonathan Bacon MD Signed By: <Electronically signed by Jonathan Bacon MD in OV> 12/27/24 1300 DD/ 1032 TD/TT: 12/27/24 1120 Supervisor Microwave: Procedure Note Donotuseinterpreter, Image - 12/27/2024 [facility] [address] [place] [address] Ultrasound Report Signed Patient: Torrie Sy#: [id number] : 5Acct:[id number] Age/Sex: 69 / FADM Date: 12/27/24 Loc: HO.MAMMO Attending Dr: George Bearden MD Ordering Physician: George Bearden MD Date of Service: 12/27/24 Procedure(s): US Breast RF Tag Device Right Accession Number(s): [id number] cc: Juan R Bey MD; George Bearden MD Reason for Exam: EXAMINATION/PROCEDURE: 1. ULTRASOUND GUIDED RFID LOCALIZATION BREAST, RIGHT 2. Postprocedure digital mammogram UNILATERAL RIGHT CLINICAL INFORMATION: Patient is status post stereotactic needle core biopsy at outside facility on September 23, 2024 for a right breast finding, with open coil Hydromark clip placement. Pathology results showed invasive ductal carcinoma with tubulolobular features. Patient is here today for RF tag LOCalizer placement. COMPARISON: Right breast stereotactic needle core biopsy on September 23, 2024. Right mammogram/ultrasound workup on September 01, 2024. TECHNIQUE NEEDLE LOC: Proper informed consent is obtained from the patient after discussion of the procedure, potential risks and complications, and alternatives including declining the procedure today. Patient was given an opportunity for questions. The patient appeared to understand. The patient consented to the procedure and signed the consent form. GUIDANCE: Ultrasound APPROACH: Lateral. TARGET: Biopsy-proven right breast mass at 9 o'clock position at 6 cm from the nipple associated with open coil clip. ANESTHESIA: carbonated lidocaine 1%: 10 cc. LOCALIZATION SYSTEM: -[employer] LOCallizer Wire-Free Guidance System with 12g needle applicator. -Length: 7 cm. -RADIOFREQUENCY TAG: ID # [id number] RF Tag ID confirmed with LOCalizer Guidance System prior to placement. The skin is prepped and local anesthesia administered. The needle is positioned and RFID tag deployed. Final images demonstrate the LOCalizer RF tag to reside in the vicinity of the biopsy proven malignancy associated with open coil clip. The patient tolerated the procedure well and had no immediate complications. Dressing placed and home instructions reviewed. US/US Breast RF Tag Device Right IMPRESSION: -Status post right breast RFID localization (tag ID#[id number]). Electronically signed by: Jonathan Bacon MD 12/27/2024 01:00 PM EDT Dictated By: Jonathan Bacon MD Signed By: <Electronically signed by Jonathan Bacon MD in OV> 12/27/24 1300 DD/ 1032 TD/TT: 12/27/24 1120 Supervisor Microwave: us [facility] External Provider IMG US PROCEDURES Edited Result - Final * (ABNORMAL) Glucose, Whole Blood (12/14/2024 11:00 AM EDT) Glucose, Whole Blood 213(H) 60 - 115 mg/dL [facility] Comment:METER #: [id number] Testing performed in the Endocrinology Department [address] E[address]phanie Hensley [address], [facility]. 12/14/2024 11:0 0 AM EDT 12/14/2024 11:04 AM EDT us Generic External Data Provider LAB BLOOD ORDERAB LES Final Result [facility] [address] [place] [phone] * Stress test with myocardial perfusion (11/25/2024 9:41 AM EDT) 11/25/2024 9:41 AM EDT Narrative [facility] - 11/28/2024 9:19 AM EDT [address] [address] Nuclear Medicine Report Signed Patient: Torrie Sy MR#: [id number] : 1955 Acct:[id number] Age/Sex: 69 / F ADM Date: 11/25/24 Loc: SOWMYA Attending Dr: David Sarmiento MD Ordering Physician: David Sarmiento MD Date of Service: 11/25/24 Procedure(s): NM cardiolite stress test Accession Number(s): [id number] cc: Juan R Bey MD; David Sarmiento [...] 11/28/24 0915 DD/ 0941 TD/TT: 11/26/24 1400 Supervisor Microwave: Procedure Note Donotuseinterpreter, Image - 11/28/2024 [place] [address] Nuclear Medicine Report Signed Patient: Torrie Sy#: [id number] : 5Acct:[id number] Age/Sex: 69 / FADM Date: 11/25/24 Loc: HO.CARD Attending Dr: David Sarmiento MD Ordering Physician: David Sarmiento MD Date of Service: 11/25/24 Procedure(s): NM cardiolite stress test Accession Number(s): [id number] cc: Juan R Bey MD; David Sarmiento [...] 11/28/24 0915 DD/ 0941 TD/TT: 11/26/24 1400 Supervisor Microwave: [facility] External Provider CV STRE SS PROCEDURES Edited Result - Final [facility] [address] [place] [phone] * Cell Block (11/10/2024 11:26 AM EDT) 11/10/2024 11:2 6 AM EDT 11/10/2024 11:44 AM EDT [facility] - 11/11/2024 10:45 AM EDT ----- ------- Name: Torrie Sy Age/Sex: 69/F : 1955 Unit#: [id number] Attend Dr: Eduarda Quintanilla MD Re11/10/24 Status: [facility] REF Location: [facility] Disch: ----- ------- SPEC : [id number] RECD: 11/10/24-1143 STATUS: AMY WEBSTER NUM: [id number] HAILEY: 11/10/24-1126 [facility] DR: Eduarda Quintanilla MD ENTERED: 11/10/24-1212 SP TYPE: Cytology OT DR: Juan R Bey MD ORDERED: Cell Block, Fine Ndl Asp Diagnosis Thyroid, left mid lower pole 3.3 cm nodule, fine needle aspiration: Non-diagnostic ([place] category I). COMMENT: Only rare groups of [...] developed and their performance characteristics determined by [facility]. They have not been cleared or approved by the U.S. Food and Drug Administration (FDA). However, the FDA has determined that such clearance or approval is not necessary. This laboratory is certified under the Clinical Laboratory Improvement Amendments of 1988 (CLIA) as qualified to perform high complexity clinical laboratory testing. Copies To: Juan R Bey MD [address] [phone] Eduarda Quintanilla MD [facility] Endocrinology [address] [place] [address] CONTINUED ON NEXT PAGE ----- ------- Name: Torrie Sy Age/Sex: 69/F : 1955 Unit#: [id number] Attend Dr: Eduarda Quintanilla MD Re11/10/24 Status: DEP REF Location: [facility] Disch: ----- ------- SPEC : [id number] RECD: 11/10/24-1144 STATUS: AMY WEBSTER NUM: [id number] HAILEY: 11/10/24-1126 [facility] DR: Eduarda Quintanilla MD ENTERED: 11/10/24-1212 SP TYPE: Cytology OTHR DR: Juan R Bey MD ORDERED: Cell Block, Fine Ndl Asp Copies To: (Continued) [email or web address] ----- ------- Signed (signature on file) Juan Blunt MD 11/11/24 1045 ----- ------- END OF REPORT us Generic External Data Provider LAB CYTOLOGY STEVAN PEREZ Final Result [facility] [address] [place] [phone] * (ABNORMAL) CBC auto differential (10/18/2024 2:56 PM EDT) White Blood Count 14.1(H) 4.8 - 10.8 X10*3/uL [facility] Red Blood Count 4.18(L) 4.20 - 5.50 X10*6/uL [facility] Hemoglobin 12.7 12.0 - 16.0 g/dl [facility] Hematocrit 38.6 37.0 - 47.0 % [facility] Mean Corpuscular Volume 92.3 80.0 - 98.0 fL [facility] Mean Corpuscular Hemoglobin 30.4 27.0 - 33.0 pg [facility] Mean Corpuscular HGB Conc 32.9 31.0 - 35.0 g/dl [facility] Red Cell Distribution Width 13.7 11.0 - 16.0 % [facility] Platelet Count 375 160 - 400 X10*3/uL [facility] Mean Platelet Volume 10.5 9.4 - 12.3 fL [facility] Neutrophils Percent Auto 67.2 45 - 73 % [facility] Imm Gran Pct Auto 0.4 0.0 - 0.4 % [facility] Lymphocytes Percent Auto 25.1 20 - 40 % [facility] Monocytes Percent Auto 4.8 2 - 11 % [facility] Eosinophils Percent Auto 1.6 0 - 4 % [facility] Basophils Percent Auto 0.9 0 - 2 % [facility] NRBC Pct Auto 0.0 0.0 - 0.2 /100WBC [facility] Neutrophils Absolute Auto 9.5(H) 2.0 - 8.3 x10*3/uL [facility] Imm Gran Abs Auto 0.06(H) 0.00 - 0.03 X10*3/uL [facility] Lymphocytes Absolute Auto 3.5 1.2 - 4.9 X10*3/uL [facility] Monocytes Absolute Auto 0.7 0.1 - 1.2 X10*3/uL [facility] Eosinophils Absolute Auto 0.2 0.0 - 0.4 X10*3/uL [facility] Basophils Absolute Auto 0.1 0.0 - 0.2 X10*3/uL [facility] NRBC Abs Auto 0.000 0.0 - 0.012 X10*3/uL [facility] Blood Venous blood specimen / Unknown 10/18/2024 2:56 PM EDT 10/18/2024 2:56 PM EDT us Juan R Vega MD LAB BLOOD ORDERABLES Final Result [facility] [address] [place] [phone] * ALT (10/18/2024 2:56 PM EDT) Alanine Aminotransferase 9 0 - 31 U/L [facility] 10/18/2024 2:56 PM EDT 10/18/2024 2:56 PM EDT us Generic External Data Provider LAB BLOOD ORDERAB LES Final Result Performing Organization Address [facility] Co de Phone Number [facility] [address] [place] [phone] * AST (10/18/2024 2:56 PM EDT) Aspartate Amino Transferase 23 5 - 31 U/L [facility] 10/18/2024 2:56 PM EDT 10/18/2024 2:56 PM EDT Generic External Data Provider LAB BLOOD ORDERAB LES Final Result Performing Organization Address [facility] de Phone Number [facility] [address] [place] [phone] * TSH (10/18/2024 2:56 PM EDT) Thyroid Stimulating Hormone 2.14 0.32 - 4.0 uIU/mL [facility] Comment:TSH 3rd Generation ( [facility]) 10/18/2024 2:56 PM EDT 10/18/2024 2:56 PM EDT Generic External Data Provider LAB BLOOD ORDERAB LES Final Result Performing Organization Address [facility] [[email or web address]] de Phone Number [facility] [address] [place] [phone] * T4, Free (10/18/2024 2:56 PM EDT) Free T4 (Free Thyroxine) 0.96 0.71 - 1.85 ng/dL [facility] 10/18/2024 2:56 PM EDT 10/18/2024 2:56 PM EDT us Generic External Data Provider LAB BLOOD ORDERAB LES Final Result Performing Organization Address [facility]/ZIP Co de Phone Number [facility] [address] [place] [phone] * Vitamin B12 (10/18/2024 2:56 PM EDT) Vitamin B12 200 200 - 900 pg/mL [facility] Comment:NORMAL 200-900 PG/ML INDETERMINATE 160-199 PG/ML DEFICIENT < 160 PG/ML 10/18/2024 2:56 PM EDT 10/18/2024 2:56 PM EDT us Generic External Data Provider LAB BLOOD ORDERAB LES Final Result Performing Organization Address [facility] Co de Phone Number [facility] [address] [place] [phone] * (ABNORMAL) Lipid Panel, Standard (10/18/2024 2:56 PM EDT) Triglycerides 186(H) <150 mg/dL [facility] Comment:Desirable Triglyceri de: less than 150 mg/dLBorderline High Triglyceride 150-199 mg/dLHigh Triglyceride: 200-499 mg/dLVery High Triglyceride: greater than or equal to 5OO mg/dL Cholesterol 127 <200 mg/dL [facility] Comment:Desirable Cholestero l: less than 200 mg/dLBorderline High Cholesterol: 200-239 mg/dLHigh Cholesterol: greater than 239 mg/dL LDL Cholesterol Calculated 56 <100 mg/dL [facility] Comment:Desirable LDL: less than 100 mg/dLNear Optimal/Above Optimal LDL: 110- 129 mg/dLBorderline High LDL: 130-159 mg/dLHigh LDL: 160-189 mg/dLVery High LDL: greater than or equal to 190 mg/dL HDL Cholesterol 34(L) >40 mg/dL [facility] Comment:Desirable HDL: great er than 40 mg/dL Note: This HDL assay may give artificially low results in patients with liver disease. 10/18/2024 2:56 PM EDT 10/18/2024 2:56 PM EDT us Generic External Data Provider LAB BLOOD ORDERAB LES Final Result Performing Organization Address City/[facility]/ZIP Co de Phone Number [facility] [address] [place] [phone] * (ABNORMAL) Basic Metabolic Panel (10/18/2024 2:56 PM EDT) Sodium 141 135 - 145 mmol/L [facility] Potassium 4.8 3.3 - 5.1 mmol/L [facility] Chloride 106 96 - 108 mmol/L [facility] Carbon Dioxide 28 22 - 29 mmol/L [facility] Anion Gap 12 12 - 20 [facility] Urea Nitrogen (BUN) 16 9 - 16 mg/dL [facility] Creatinine, Serum 0.85 0.5 - 1.4 mg/dL [facility] Estimated Glomerular Filt Rate >60 [facility] Comment:Chronic Kidney Disea se: Estimated GFR < 60 mL/min/[id number] Kidney Disease: Estimated GFR < 15 mL/min/1.73m2 Glucose 148(H) 60 - 115 mg/dL [facility] Calcium 9.5 8.4 - 10.2 mg/dL [facility] Blood Venous blood specimen / Unknown 10/18/2024 2:56 PM EDT 10/18/2024 2:56 PM EDT us Juan R Vega MD LAB BLOOD ORDERABLES Final Result Performing Organization Address [facility]/ZIP Co de Phone Number [facility] [address] [place] [phone] * Albumin, Random Urine W/Creatinine (10/18/2024 2:55 PM EDT) Pathologist [facility] Creatinine, Urine 136.42 mg/dL [facility] Microalbumin Urine 28.0 mg/L [facility] Microalbum Creatinine Ratio Ur 20.5 <30 ug/mg cr [facility] Comment:Albumin/Creatinine R atio Reference Ranges: Normal: < 30 ug/mg creatinine Microalbuminuria: 30 - 300 ug/mg creatinineClinical Albuminuria: > 300 ug/mg creatinine 10/18/2024 2:55 PM EDT 10/18/2024 3:23 PM EDT Generic External Data Provider LAB URINE ORDERAB LES Final Result Performing Organization Address City/State/[facility] Co de Phone Number [facility] [address] [place] [phone] * ECG 12 lead (10/12/2024 3:19 PM EDT) Narrative Juan R Blount MD - 10/12/2024 3:19 PM EDT Sinus tachycardia, Vs V2-V3 Juan R Vega MD ECG ORDERABLES Final Result * (ABNORMAL) POCT HGB A1C (10/12/2024 11:09 AM EDT) [facility] Hemoglobin A1C 7.2(A) 4.0 - 6.0 % QC Media Lot # [id number] Lot# Expiration Date Blood 10/12/2024 11:0 9 AM EDT Juan R Vega MD POINT OF CARE TEST EN TER/EDIT ORDERABLES Final Result * POCT Glucose (10/12/2024 10:36 AM EDT) [facility] Glucose Blood, POC 188 60 - 200 mg/dL [employer] Lot # [id number] Lot# Expiration Date Blood Capillary blood specimen / Unknown 10/12/2024 10:36 AM EDT Jua nR Vega MD POINT OF CARE TEST EN TER/EDIT ORDERABLES Final Result * Hepatitis Panel, General (02/05/2024 9:25 AM EDT) Hepatitis A IgM Nonreactive Nonreactive [facility] Comment:IgM antibodies to DE [place] CRUZ V not detected; does not exclude earlyacute or recovered HAV infection. ~Hepatitis B Surface Antibody NONREACTIVE Nonreactive [facility] Comment:Nonreactive: < 8.00 mIU/mL Hepatitis B Core Antibody Nonreactive Nonreactive [facility] Hepatitis C Antibody Nonreactive Nonreactive [facility] Comment:Antibodies to HCV no t detected; does not exclude early acuteHCV infection. Hepatitis B Surface Ag Negative Negative [facility] 02/05/2024 9:25 AM EDT 02/05/2024 9:25 AM EDT us Generic External Data Provider LAB BLOOD ORDERAB LES Final Result Performing Organization Address City/State/[facility] Co de Phone Number [facility] [address] [place] [phone] from Last 3 Months or Most Recently Relevant to Health Maintenance Insurance [facility] ONE CARE < [address] [id number] Care Teams Dark Room Attendant Relationship Specialty Start Date End Date Juan R Blount MD [address] [place] [phone] PCP - General Internal Medicine 12/09/13 [facility] 08/23/24
--- OUTSIDE RECORDS SUMMARY | 2025-01-10 11:29 | XMS_ITS | Encounter Summary ---
Author Organization [employer] Address [address] [facility] 7t [place] [address] Care Team Providers Care Erp Specialist Name Role Phone Juan R Blount MD Primary Care Provide r Encounter Details Date Type Department Care Team (Late Contact Info) Description 05/29/2022 Orders Only [facility] MEDICINE [address] [place], [place] [phone] Cyndi Sy LPN Social History Tobacco Use [...] Description 01/25/2025 1:00 PM EDT Office Visit [facility] MED[facility]INE [address] [place] [address] [phone] Juan R Blount MD [address] [place] [phone] documented as of this encounter Visit Diagnoses Not on filedocumented in this encounter Care Teams Erp Specialist Relationship Specialty Start Date End Date Juan R Blount MD [address] [place] [phone] PCP - General Internal Medicine 12/09/13 Sh[facility] Endocrinology 08/23/24 documented as of this encounter
--- OUTSIDE RECORDS SUMMARY | 2025-01-10 11:29 | XMS_ITS | Encounter Summary ---
Author Organization [employer] Address [address] [facility] 7t [place] [address] Care Team Providers Care Income Tax Manager Name Role Phone Juan R Blount MD Primary Care Provide r Encounter Details Date Type Department Care Team (Late Contact Info) Description 05/31/[address] [facility] MEDICINE [address] [place], [place] [phone] Juan R Blount MD [address] [place] [address] [phone] Social History Tobacco Use Types Packs/Day Years [...] 1:00 PM EDT Office Visit [facility] MEDICINE [address] [place] [address] Juan R Blount MD [address] [place], [place] [phone] documented as of this encounter Visit Diagnoses Not on filedocumented in this encounter Care Teams Income Tax Manager Relationship Specialty Start Date End Date JuanR Blount MD [address] [place] [address] [phone] PCP - General Internal Medicine 12/09/13 Sh[facility] Sutton Endocrinology 08/23/24 documented as of this encounter
--- OUTSIDE RECORDS SUMMARY | 2025-01-10 11:29 | XMS_ITS | Encounter Summary ---
Author Organization [employer] Address [address] [facility] 7t [place] [address] Care Team Providers Care Coastal/Harbor Defense Officer Name Role Phone Juan R Blount MD Primary Care Provide r Encounter Details Date Type Department Care Team (Late st Contact Info) Description 06/11/2022 Orders Only [facility] MED & PEDS [address] [place] [address] Luz Marina Zaragoza LPN Social History Tobacco [...] 1:00 PM EDT Office Visit [facility] MEDICINE [address] [place] [address] Juan R Blount MD [address] [place] [address] documented as of this encounter Visit Diagnoses Not on filedocumented in this encounter Care Teams Coastal/Harbor Defense Officer Relationship Specialty Start Date End Date Juan R Blount MD [address] [place] [phone] PCP - General Internal Medicine 12/09/13 Sh[facility] Sutton Endocrinology 08/23/24 documented as of this encounter
--- OUTSIDE RECORDS SUMMARY | 2025-01-10 11:29 | XMS_ITS | Encounter Summary ---
Author Organization [employer] Address [address] [facility] 7t [place] [address] Care Team Providers Care Studio Camera Operator Name Role Phone Juan R Blount MD Primary Care Provide r Encounter Details Date Type Department Care Team (Late Contact Info) Description 10/29/2022 Abstract [facility] MEDICINE [address] [place], [place] [phone] Juan R Blount MD [address] [place] [address] [phone] Social History Tobacco Use Types Packs/Day Years [...] Visit [facility] MEDICINE [address] [place] [address] Juan R Blount MD [address] [place], [place] [phone] documented as of this encounter Visit Diagnoses Not on filedocumented in this encounter Care Teams Studio Camera Operator Relationship Specialty Start Date End Date Juan R Blount MD [address] [place] [address] [phone] PCP - General Internal Medicine 12/09/13 Shasta Sutton Endocrinology 08/23/24 documented as of this encounter
--- OUTSIDE RECORDS SUMMARY | 2025-01-10 11:29 | XMS_ITS | Encounter Summary ---
Author Organization [employer] Address [address] [facility] 7t [place] [address] Care Team Providers Care Walking Dragline Oiler Name Role Phone Juan R Blount MD Primary Care Provide r Encounter Details Date Type Department Care Team (Late st Contact Info) Description 07/03/2022 Orders Only [facility] CHC MED & PEDS [address] [place] [address] Luz Marina Zaragoza LPN Social History Tobacco [...] Description 01/25/2025 1:00 PM EDT Office Visit [facility] MEDICINE [address] [place] [address] Juan R Blount MD [address] [place] [address] documented as of this encounter Visit Diagnoses Not on filedocumented in this encounter Care Teams Walking Dragline Oiler Relationship Specialty Start Date End Date Juan R Blount MD [address] [place] [phone] PCP - General Internal Medicine 12/09/13 Sh[facility] Sutton Endocrinology 08/23/24 documented as of this encounter
== END 2025-01-10 11:03 | disposition home or self-care (01) ==
PROVIDERS: PCP Internal Medicine; Visit Provider Surgery
DX: C50.911 Malignant neoplasm of unspecified site of right female breast (principal)
CPT/HCPCS: 99024

== ENCOUNTER → 2025-01-10 09:41 | Outpatient (BNVA) | payer OTHER, SELFPAY | PROVIDERS: PCP Internal Medicine; Visit Provider Surgery | DX: Z71.2 Person consulting for explanation of examination or test findings (principal); C50.911 Malignant neoplasm of unspecified site of right female breast | CPT/HCPCS: 99212 ==

== ENCOUNTER 2025-01-13 10:41 | Day surgery (SDC) | payer OTHER, SELFPAY ==
--- OUTSIDE RECORDS SUMMARY | 2024-05-25 09:00 | XMS_ITS ---
Author Organization [facility] Address [address] [place] [phone] Care Team Providers Care Assurance Senior Name Role Phone Angelito Vega MD, Juan R Primary Care Provide Caden Jordan [phone] REASON FOR VISIT Patient presents today for a COLON SCREENING Encounters Encounter Location Date Provider Diagnosis [facility] [address] [place] [phone] 05/25/2024 aCden Huffman Plan Of Treatment No Information Progress Notes * MERCEDES BRUSHDOB:[birth year] (69 yo M)Acc No.[id number]:05/25/2024 Progress Notes Patient: MERCEDES PEPE Provider: Rey Huffman MD :1955 A ge:69 Y S ex:Male Date:05/25/2024 Address:[address] [place], [place] [id number] Pcp:Juan R montalvo MD Subjective: * Chief [...] 05/25/2024 Generated for Deirdre dominguez/Bobbi/Chitraitting on: 0 01/11/2025 02:30 PM EDT
--- OUTSIDE RECORDS SUMMARY | 2024-09-28 06:10 | XMS_ITS ---
Author Organization [facility] Address [address] [place] [phone] Care Team Providers Care Hat Brim Curler Name Role Phone Angelito Vega MD, Juan R Primary Care Provide Caden Jordan [phone] REASON FOR VISIT patient presents today for COLON SCREENING Encounters Encounter Location Date Provider Diagnosis [facility] [address] [place] [phone] 09/28/2024 Caden Huffman Plan Of Treatment No Information Progress Notes * MERCEDES BRUSHDOB:[birth year] (69 yo M)Acc No.[id number]:09/28/2024 Progress Notes Patient: MERCEDES PEPE Provider: Rey Huffman MD :1955 A ge:69 Y S ex:Male Date:09/28/2024 Address:[address] [place], [place] [phone] Pcp:Juan R montalvo MD Subjective: * Chief [...] Huffman MD Date: 09/28/2024 Generated for Deirdre dominguez/Bobbi/eTcamitting on: 01/11/2025 02:31 PM EDT
--- OUTSIDE RECORDS SUMMARY | 2025-01-11 14:30 | XMS_ITS | Encounter Summary ---
Author Organization [employer] Address [address] [facility] [address] 7[address] [place] [address] Care Team Providers Care Oxyacetylene Cutter Name Role Phone Juan R Blount MD Primary Care Provide r Reason for Visit * Reason Comments Med Refill Encounter Details Date Type Department Care Team ([facility] st Contact Info) Description 04/16/2024 Refill [facility] CHC MED & PEDS [address] [place] [address] Aggie Melendez MD [address] [place] [address] Primary insomnia Social History Tobacco Use Types [...] Description 01/25/2025 1:00 PM EDT Office Visit [facility] MEDICINE [address] [place] [address] Juan R Blount MD [address] [place] [address] documented as of this encounter Visit Diagnoses Diagnosis Primary insomnia Persistent disorder of initiating or maintaining sleep documented in this encounter Additional Health Concerns Assessment Noted Time PHQ-9 Depression Total Score: 3 01/15/20 24 1:38 PM EDT documented as of this encounter Care Teams Oxyacetylene Cutter Relationship Specialty Start Date End Date Juan R Blount MD [address] [place] [address] PCP - General Internal Medicine 12/09/13 Sh[facility] Sutton Endocrinology 08/23/24 documented as of this encounter
--- OUTSIDE RECORDS SUMMARY | 2025-01-11 14:30 | XMS_ITS | Clinical Summary ---
Author Organization [facility] Address [address] [place] [phone] Phone Care Team Providers Care Chainstitch Elastic Attacher Name Role Phone Juan R Bey MD [...] this topic Medical Devices Implanted Type Area Factory Hand Device Identifier Shelf Expiration Date Model / Serial / Lot Marker Breast Biopsy 10g Flexible Ti Open Coil [employer] - [id number] Implanted:Qty: 1 on 09/23/2024 by Christos Warner MD at [facility] Imaging Implants Right: Breast [employer] [id number] 03/10/2027 4010-05- 10-T3 / / [id number] Procedures Procedure Name Priority Date/Time Associated [...] Signed Date: 09/27/2024 14:26 ET Workstation ID: [id number] Transcribed By: Self Edit Transcribed Date: 09/27/2024 [...] Pathology pending for the right breast. Location: [address] [place], [address] -------- FINAL REPORT -------- Dictated By: Christos Warner Dictated Date: 09/23/2024 13:54 ET Assigned Physician: Christos Warner Reviewed and Electronically Signed By: Christos Warner Signed Date: 09/23/2024 15:10 ET Workstation ID: [id number] Transcribed By: Self Edit Transcribed Date: 09/23/2024 [...] ID:[id number] Group ID:[id number] Type:Not on file Address: [facility] [address] [phone] Care Teams Chainstitch Elastic Attacher Relationship Specialty Start Date End Date Juan R Bey MD [address] [place] [phone] PCP - General Internal Medicine 09/03/24
--- OUTSIDE RECORDS SUMMARY | 2025-01-11 14:30 | XMS_ITS | Encounter Summary ---
Author Organization [employer] Address [address] [facility] [address] 7[address] [place] [address] Care Team Providers Care Document Controller Name Role Phone uJan R Blount MD Primary Care Provide r Reason for Visit * Reason Comments Med Refill Encounter Details Date Type Department Care Team ([facility] st Contact Info) Description 10/23/2023 Refill [facility] CHC MED & PEDS [address] [place], [place] [phone] Juan R Blount MD [address] [place] [address] Type 2 diabetes mellitus with hyperglycemia, with long-term current use of insulin ([facility]) Social History Tobacco Use Types Packs/Day [...] Visit [facility] MEDICINE [address] [place] [address] Juan R Blount MD [address] [place] [address] documented as of this encounter Visit Diagnoses Diagnosis Type 2 diabetes mellitus with hyperglycemia, with long-term current use of insulin ([facility]) documented in this encounter Additional Health Concerns Assessment Noted Time PHQ-9 Depression Total Score: 8 11/20/19 23 9:41 AM EDT documented as of this encounter Care Teams Document Controller Relationship Specialty Start Date End Date Juan R Blount MD [address] [place] [address] PCP - General Internal Medicine 12/09/13 Sh[facility] Sutton Endocrinology 08/23/24 documented as of this encounter
--- OUTSIDE RECORDS SUMMARY | 2025-01-11 14:31 | XMS_ITS | Encounter Summary ---
Author Organization [employer] Address [address] [facility] 7t [place] [address] Care Team Providers Care Coning Machine Operator Name Role Phone Juan R Blount MD Primary Care Provide r Reason for Visit * Reason Comments Med Refill Encounter Details Date Type Department Care Team ([facility] st Contact Info) Description 06/27/2023 Refill [facility] CHC MED & PEDS [address] [place] [address] Aggie Guan MD [address] [place] [address] Primary insomnia Social History Tobacco Use Types [...] Description 01/25/2025 1:00 PM EDT Office Visit [facility] MEDICINE [address] [place] [address] Juan R Blount MD [address] [place] [address] documented as of this encounter Visit Diagnoses Diagnosis Primary insomnia Persistent disorder of initiating or maintaining sleep documented in this encounter Additional Health Concerns Assessment Noted Time PHQ-9 Depression Total Score: 8 11/20/19 23 9:41 AM EDT documented as of this encounter Care Teams Coning Machine Operator Relationship Specialty Start Date End Date Juan R Blount MD [address] [place] [address] PCP - General Internal Medicine 12/09/13 Sh[facility] Sutton Endocrinology 08/23/24 documented as of this encounter
--- OUTSIDE RECORDS SUMMARY | 2025-01-11 14:31 | XMS_ITS | Encounter Summary ---
Author Organization [employer] Address [address] [facility] 7t [place] [address] Care Team Providers Care Rocket Scientist Name Role Phone Juan R Blount MD Primary Care Provide r Encounter Details Date Type Department Care Team (Late Contact Info) Description 05/31/2022 Abstract [facility] MEDICINE [address] [place], [place] [phone] Juan R Blount MD [address] [place] [address] [phone] Social History Tobacco Use Types Packs/Day Years [...] 01/25/2025 1:00 PM EDT Office Visit [facility] MEDICINE [address] [place] [address] Juan R Blount MD [address] [place], [place] [phone] documented as of this encounter Visit Diagnoses Not on filedocumented in this encounter Care Teams Rocket Scientist Relationship Specialty Start Date End Date Juan R Blount MD [address] [place] [address] [phone] PCP - General Internal Medicine 12/09/13 Sh[facility] Sutton Endocrin[facility] 08/23/24 documented as of this encounter
--- OUTSIDE RECORDS SUMMARY | 2025-01-11 14:31 | XMS_ITS | Encounter Summary ---
Author Organization [employer] Address [address] [facility] 7t [place] [address] Care Team Providers Care Cullet Crusher And Washer Name Role Phone Juan R Blount MD Primary Care Provide r Reason for Visit * Reason Onset Date Comments [facility] QUESTIONS 12/02/2024 Encounter Details Date Type Department Care Team ([facility] st Contact Info) Description 12/02/2024 Telephone [facility] MEDICINE [address] [place], [place] [phone] Juan R Blount MD [address] [place], [place] [phone] [facility] QUESTIONS Social History Tobacco Use Types [...] 12/02/2024 9:21 AM EDT LISA keller with [facility] requesting a call back due [...] 1:00 PM EDT Office Visit [facility] MEDICINE [address] [place] [address] Juan R Blount MD [address] [place], [place] [phone] documented as of this encounter Visit Diagnoses Not on filedocumented in this encounter Additional Health Concerns Assessment Noted Time PHQ-9 Depression Total Score: 3 01/15/20 24 1:38 PM EDT documented as of this encounter Care Teams Cullet Crusher And Washer Relationship Specialty Start Date End Date Juan R Blount MD [address] [place] [phone] PCP - General Internal Medicine 12/09/13 Shasta Sutton Endocrinology 08/23/24 documented as of this encounter
--- OUTSIDE RECORDS SUMMARY | 2025-01-11 14:31 | XMS_ITS | Encounter Summary ---
Author Organization [employer] Address [address] [facility] 7t [place] [address] Care Team Providers Care Fire Extinguisher Charger Name Role Phone Juan R Blount MD Primary Care Provide r Encounter Details Date Type Department Care Team (Late Contact Info) Description 10/29/2022 Abstract [facility] MEDICINE [address] [place], [place] [phone] Juan R Blount MD [address] [place] [address] [phone] Social History Tobacco Use Types Packs/Day Years [...] Description 01/25/2025 1:00 PM EDT Office Visit [facility] MEDICINE [address] [place] [address] Juan R Blount MD [address] [place], [place] [phone] documented as of this encounter Visit Diagnoses Not on filedocumented in this encounter Care Teams Fire Extinguisher Charger Relationship Specialty Start Date End Date Juan R Blount MD [address] [place] [address] [phone] PCP - General Internal Medicine 12/09/13 Shasta Sutton Endocrinology 08/23/24 documented as of this encounter
--- OUTSIDE RECORDS SUMMARY | 2025-01-11 14:31 | XMS_ITS | Encounter Summary ---
Author Organization [employer] Address 75 [facility] 7t [place] [address] Care Team Providers Care Slate Splitting Supervisor Name Role Phone Juan R Blount MD Primary Care Provide r Encounter Details Date Type Department Care Team (Late Contact Info) Description 05/16/2022 Orders Only [facility] CHC MED & PEDS [address] [place], [place] [phone] Luz Marina Zaragoza LPN Social History Tobacco [...] 1:00 PM EDT Office Visit [facility] MEDICINE [address] [place], [place] [phone] Juan R Blount MD [address] [place], [place] [phone] documented as of this encounter Procedures Procedure Name Priority Date/Time Associated Diagnosis Comments BI MAMMOGRAM DIAGNOSTIC TOMOSYNTHESIS LEFT Routine 05/28/2022 2:58 PM EST documented in this encounter Results * BI Mammogram Diagnostic Tomosynthesis Left (05/28/2022 2:58 PM EST) Anatomical Region Laterality Modality Breast Left Mammography 05/28/2022 2:58 PM EST Narrative 05/28/2022 4:46 PM EST [facility] [address] [place], [place] [address] Mammography Report Signed Patient: Torrie Sy MR#: [id number] : 1955 Acct:[id number] Age/Sex: 67 / F ADM Date: 05/28/22 Loc: HO.WALLYO Attending Dr: Juan R Bey MD Ordering Physician: Juan R Bey MD Results: 3.6MProbably Benign Finding - Short 6 M F/U Suggested Date of Service: 05/28/22 Follow Up: 6 Month F/U Procedure(s): MM tomosynthesis diagnostic LT Accession Number(s): [id number] cc: Juan R Bey MD EXAMINATION: MM [...] in OV> 05/28/22 1643 DD/ 1458 TD/TT: Mailing Machine Operator: SANTOS Procedure Note Donotuseinterpreter, Image - 05/28/2022 [facility] [address] [place] [address] Mammography Report Signed Patient: Torrie SyMR#: [id number] : 5Acct:[id number] Age/Sex: 67 / FADM Date: 05/28/22 Loc: HO.WALLYO Attending Dr: Juan R Bey MD Ordering Physician: Juan R Bey MD Results: 3.6MProbably Benign Finding - Short 6 M F/U Suggested Date of Service: 05/28/22Follow Up: 6 Month F/U Procedure(s): MM tomosynthesis diagnostic LT Accession Number(s): [id number] cc: Juan R Bey MD EXAMINATION: MM [...] in OV> 05/28/22 1643 DD/ 1458 TD/TT: Mailing Machine Operator: SANTOS [facility] External Provider IMG BI PROCEDURES Edited Result - Final documented in this encounter Visit Diagnoses Not on filedocumented in this encounter Care Teams Slate Splitting Supervisor Relationship Specialty Start Date End Date Juan R Blount MD [address] [place] [address] PCP - General Internal Medicine 12/09/13 Sh[facility] Sutton Endocrinology 08/23/24 documented as of this encounter
--- OUTSIDE RECORDS SUMMARY | 2025-01-11 14:31 | XMS_ITS | Encounter Summary ---
Author Organization [employer] Address 75 [facility] 7t [place] [address] Care Team Providers Care Physician Office Assistant Name Role Phone Juan R Blount MD Primary Care Provide r Encounter Details Date Type Department Care Team (Late st Contact Info) Description 07/03/2022 Orders Only [facility] CHC MED & PEDS [address] [place] [address] Luz Marina Zaragoza LPN Social History Tobacco [...] Description 01/25/2025 1:00 PM EDT Office Visit [facility] MEDICINE [address] [place] [address] Juan R Blount MD [address] [place] [address] documented as of this encounter Visit Diagnoses Not on filedocumented in this encounter Care Teams Physician Office Assistant Relationship Specialty Start Date End Date Juan R Blount MD [address] [place] [phone] PCP - General Internal Medicine 12/09/13 Shasta Sutton Endocrinology 08/23/24 documented as of this encounter
--- OUTSIDE RECORDS SUMMARY | 2025-01-11 14:31 | XMS_ITS | Encounter Summary ---
Author Organization [employer] Address 75 [facility] 7t [place] [address] Care Team Providers Care Body Masker Name Role Phone Juan R Blount MD Primary Care Provide r Encounter Details Date Type Department Care Team (Late Contact Info) Description 05/29/2022 Orders Only [facility] MEDICINE [address] [place], [place] [phone] Cyndi Sy LPN Social History Tobacco Use [...] Description 01/25/2025 1:00 PM EDT Office Visit [facility] MEDICINE [address] [place] [phone] Juan R Blount MD [address] [place] [address] documented as of this encounter Visit Diagnoses Not on filedocumented in this encounter Care Teams Body Masker Relationship Specialty Start Date End Date Juan R Blount MD [address] [place] [address] PCP - General Internal Medicine 12/09/13 Shasta Sutton Endocrinology 08/23/24 documented as of this encounter
--- OUTSIDE RECORDS SUMMARY | 2025-01-11 14:31 | XMS_ITS | Clinical Summary ---
Author Organization [facility] Address [address] [place] [address] [place] [address] Phone Care Team Providers Care Cut Pressman Name Role Phone Juan R Eaton MD [...] this topic Insurance [place] Care Teams Cut Pressman Relationship Specialty Start Date End Date Juan R Eaton MD PCP - General Internal Medicine 08/23/20
--- OUTSIDE RECORDS SUMMARY | 2025-01-11 14:31 | XMS_ITS | Encounter Summary ---
Author Organization [employer] Address 75 [facility] 7t [place] [address] Care Team Providers Care Oil And Gas Drafter Name Role Phone Juan R Blount MD Primary Care Provide r Reason for Visit * Reason Comments Med Refill Encounter Details Date Type Department Care Team ([facility] st Contact Info) Description 07/29/2023 Refill [facility] CHC MED & PEDS [address] [place] [address] Aggie Guan MD 230 [place] [address] Primary insomnia Social History Tobacco Use Types [...] 01/25/2025 1:00 PM EDT Office Visit [facility] MEDICINE 230 [place] [address] Juan R Blount MD 230 [place] [address] documented as of this encounter Visit Diagnoses Diagnosis Primary insomnia Persistent disorder of initiating or maintaining sleep documented in this encounter Additional Health Concerns Assessment Noted Time PHQ-9 Depression Total Score: 8 11/20/19 23 9:41 AM EDT documented as of this encounter Care Teams Oil And Gas Drafter Relationship Specialty Start Date End Date Juan R Blount MD [address] [place] [address] PCP - General Internal Medicine 12/09/13 Shasta Sutton Endocrinology 08/23/24 documented as of this encounter
--- OUTSIDE RECORDS SUMMARY | 2025-01-11 14:31 | XMS_ITS | Patient Health Record ---
Author Organization [facility] Address [address] [place] [address] Care Team Providers Care Truck Leasing Manager Name Role Phone Angelito Vega MD, Juan R Primary Care Provide r Caden Berry [phone] Reason For Referral No Information Encounters Encounter Location Date Provider Diagnosis [facility] [address] [place] [address] 05/24/2024 Caden Huffman Plan Of Treatment No Information Insurance Providers Payer Name Payer Address Payer Phone Subscriber Number Group Number Insured Name Patient Relationship to Insured Coverage Start Date Coverage End Date [facility] [address] [place] [phone] [id number] [employer] Self - patient is the insured
--- OUTSIDE RECORDS SUMMARY | 2025-01-11 14:31 | XMS_ITS | Encounter Summary ---
Author Organization [employer] Address 75 [facility] 7t [place] [address] Care Team Providers Care Grounds Cleaner Name Role Phone Juan R Blount MD Primary Care Provide r Reason for Visit * Reason Comments Med Refill Encounter Details Date Type Department Care Team ([facility] st Contact Info) Description 06/27/2023 Refill [facility] CHC MED & PEDS [address] [place] [address] Aggie Guan MD [address] [place] [address] Primary insomnia Social History Tobacco Use Types [...] 1:00 PM EDT Office Visit [facility] MEDICINE [address] [place] [address] Juan R Blount MD [address] [place] [address] documented as of this encounter Visit Diagnoses Diagnosis Primary insomnia Persistent disorder of initiating or maintaining sleep documented in this encounter Additional Health Concerns Assessment Noted Time PHQ-9 Depression Total Score: 8 11/20/19 23 9:41 AM EDT documented as of this encounter Care Teams Grounds Cleaner Relationship Specialty Start Date End Date Juan R Blount MD [address] [place] [address] PCP - General Internal Medicine 12/09/13 Shasta Sutton Endocrinology 08/23/24 documented as of this encounter
--- OUTSIDE RECORDS SUMMARY | 2025-01-11 14:31 | XMS_ITS | Encounter Summary ---
Author Organization [employer] Address 75 [facility] 7t [place] [address] Care Team Providers Care Watch Train Inspector Name Role Phone Juan R Blount MD Primary Care Provide r Encounter Details Date Type Department Care Team (Late st Contact Info) Description 06/11/2022 Orders Only [facility] CHC MED & PEDS [address] [place] [address] Luz Marina Zaragoza LPN Social History Tobacco [...] Description 01/25/2025 1:00 PM EDT Office Visit [facility] MEDICINE [address] [place] [address] Juan R Blount MD [address] [place] [address] documented as of this encounter Visit Diagnoses Not on filedocumented in this encounter Care Teams Watch Train Inspector Relationship Specialty Start Date End Date Juan R Blount MD [address] [place] [address] PCP - General Internal Medicine 12/09/13 Shasta Sutton Endocrinology 08/23/24 documented as of this encounter
--- OUTSIDE RECORDS SUMMARY | 2025-01-11 14:31 | XMS_ITS | Encounter Summary ---
Author Organization [employer] Address 75 [facility] 7t [place] [address] Care Team Providers Care Lead Security Officer Name Role Phone Juan R Bloutn MD Primary Care Provide r Reason for Visit * Reason Onset Date Comments Med Refill 12/03/2022 Encounter Details Date Type Department Care Team ([facility] st Contact Info) Description 12/03/2022 Refill [facility] MEDICINE [address] [place], [place] [phone] Juan R Blount MD [address] [place] [address] Asthma, unspecified asthma severity, unspecified whether complicated, [...] 1:00 PM EDT Office Visit [facility] MEDICINE [address] [place] [address] Juan R Blount MD [address] [place] [address] documented as of this encounter Visit Diagnoses Diagnosis Asthma, unspecified asthma severity, unspecified whether complicated, unspecified whether persistent documented in this encounter Additional Health Concerns Assessment Noted Time PHQ-9 Depression Total Score: 8 11/20/19 23 9:41 AM EDT documented as of this encounter Care Teams Lead Security Officer Relationship Specialty Start Date End Date Juan R Blount MD [address] [place] [address] PCP - General Internal Medicine 12/09/13 Shasta Sutton Endocrinology 08/23/24 documented as of this encounter
--- OUTSIDE RECORDS SUMMARY | 2025-01-11 14:31 | XMS_ITS | Encounter Summary ---
Author Organization [employer] Address [address] [facility] [address] 7t [place] [address] Care Team Providers Care Web Content Director Name Role Phone Juan R Blount MD Primary Care Provide r Encounter Details Date Type Department Care Team (Late st Contact Info) Description 05/16/2023 Abstract [facility] MEDICINE [address] [place] [address] Juan R Blount MD [address] [place] [address] Social History Tobacco Use Types [...] Description 01/25/2025 1:00 PM EDT Office Visit [facility] MEDICINE [address] [place] [address] Juan R Blount MD [address] [place] [address] documented as of this encounter Visit Diagnoses Not on filedocumented in this encounter Additional Health Concerns Assessment Noted Time PHQ-9 Depression Total Score: 8 11/20/19 23 9:41 AM EDT documented as of this encounter Care Teams Web Content Director Relationship Specialty Start Date End Date Juan R Blount MD [address] [place] [address] PCP - General Internal Medicine 12/09/13 Shasta Sutton Endocrinology 08/23/24 documented as of this encounter
--- OUTSIDE RECORDS SUMMARY | 2025-01-11 14:31 | XMS_ITS | Encounter Summary ---
Author Organization [employer] Address [address] [facility] [address] 7t [place] [address] Care Team Providers Care Plateman Name Role Phone Juan R Blount MD Primary Care Provide r Reason for Visit * Reason Comments Med Refill Encounter Details Date Type Department Care Team ([facility] st Contact Info) Description 08/26/2024 Refill [facility] CHC MED & PEDS [address] [place], [place] [phone] Juan R Blount MD [address] [place] [address] Primary insomnia Social History Tobacco Use Types [...] Description 01/25/2025 1:00 PM EDT Office Visit [facility] MEDICINE [address] [place] [address] Juan R Blount MD [address] [place] [address] documented as of this encounter Visit Diagnoses Diagnosis Primary insomnia Persistent disorder of initiating or maintaining sleep documented in this encounter Additional Health Concerns Assessment Noted Time PHQ-9 Depression Total Score: 3 01/15/20 24 1:38 PM EDT documented as of this encounter Care Teams Plateman Relationship Specialty Start Date End Date Juan R Blount MD 230 [place] [address] PCP - General Internal Medicine 12/09/13 Shasta Sutton Endocrinology 08/23/24 documented as of this encounter
--- OUTSIDE RECORDS SUMMARY | 2025-01-11 14:31 | XMS_ITS | Encounter Summary ---
Author Organization [employer] Address [address] [facility] [address] 7t [place] [address] Care Team Providers Care Business Education Professor Name Role Phone Juan R Blount MD Primary Care Provide r Reason for Visit * Reason Comments Med Refill Encounter Details Date Type Department Care Team ([facility] st Contact Info) Description 01/08/2025 Refill [facility] CHC MED & PEDS [address] [place], [place] [phone] Juan R Blount MD [address] [place] [address] Type 2 diabetes mellitus without complication, with long-term current use of insulin ([facility]) Social History Tobacco Use Types [...] Description 01/25/2025 1:00 PM EDT Office Visit [facility] MEDICINE 230 [place] [address] Juan R Blount MD [address] [place] [address] documented as of this encounter Visit Diagnoses Diagnosis Type 2 diabetes mellitus without complication, with long-term current use of insulin ([facility]) documented in this encounter Additional Health Concerns Assessment Noted Time PHQ-9 Depression Total Score: 3 01/15/20 24 1:38 PM EDT documented as of this encounter Care Teams Business Education Professor Relationship Specialty Start Date End Date Juan R Blount MD [address] [place] [address] PCP - General Internal Medicine 12/09/13 Shasta Sutton Endocrinology 08/23/24 documented as of this encounter
--- OUTSIDE RECORDS SUMMARY | 2025-01-11 14:31 | XMS_ITS | Encounter Summary ---
Author Organization [employer] Address 75 [facility] 7t [place] [address] Care Team Providers Care Kelp Or Seagrass Gatherer Name Role Phone Juan R Blount MD Primary Care Provide r Reason for Visit * Reason Comments Med Refill Encounter Details Date Type Department Care Team ([facility] st Contact Info) Description 12/17/2024 Refill [facility] MEDICINE [address] [place], [place] [phone] Juan R Blount MD [address] [place], [place] [phone] Asthma, unspecified asthma severity, unspecified whether complicated, [...] [place] Subject: Script Requests Grebritney, I am (Certified Alcohol And Drug Counselor Ashley Ponce), Certified Alcohol And Drug Counselor for [facility] Care Management, requesting the following DME???s on behalf of patient. DME Item: Handheld Shower head, and non-slip bathmat Supportive DX: R29.6, E66.09 If you should have any inquiries regarding this request, feel free to contact the Certified Alcohol And Drug Counselor below. Certified Alcohol And Drug Counselor: Ashley Ponce E-mail: [email or web address] Loop Sewer: Loop Sewer Gayla Singh Phone: E-mail: [email or web address] Thanks in advance for your assistance with this request. Sincerely, [facility] Care Management documented in this encounter Plan of Treatment Upcoming Encounters Date Type Department Care Team ([facility] st Contact Info) Description 01/25/2025 1:00 PM EDT Office Visit [facility] MEDICINE [address] [place] [address] Juan R Blount MD [address] [place] [address] documented as of this encounter Visit Diagnoses Diagnosis Asthma, unspecified asthma severity, unspecified whether complicated, unspecified whether persistent documented in this encounter Additional Health Concerns Assessment Noted Time PHQ-9 Depression Total Score: 3 01/15/20 24 1:38 PM EDT documented as of this encounter Care Teams Kelp Or Seagrass Gatherer Relationship Specialty Start Date End Date Juan R Blount MD [address] [place] [address] PCP - General Internal Medicine 12/09/13 Shasta Sutton Endocrinology 08/23/24 documented as of this encounter
--- OUTSIDE RECORDS SUMMARY | 2025-01-11 14:31 | XMS_ITS | Encounter Summary ---
Author Organization [employer] Address [address] [facility] 7t [place] [address] Care Team Providers Care Purchasing Engineer Name Role Phone Juan R Blount MD Primary Care Provide r Reason for Visit * Reason Comments Med Refill Encounter Details Date Type Department Care Team ([facility] st Contact Info) Description 02/04/2024 Refill [facility] MEDICINE [address] [place], [place] [phone] Lewis Carter MD [address] [place], [place] [phone] Social History Tobacco Use Types Packs/Day Years [...] Upcoming Encounters Date Type Department Care Team ([facility] st Contact Info) Description 01/25/2025 1:00 PM EDT Office Visit [facility] MEDICINE [address] [place] [address] Juan R Blount MD [address] [place] [address] documented as of this encounter Visit Diagnoses Not on filedocumented in this encounter Additional Health Concerns Assessment Noted Time PHQ-9 Depression Total Score: 3 01/15/20 24 1:38 PM EDT documented as of this encounter Care Teams Purchasing Engineer Relationship Specialty Start Date End Date Juan R Blount MD [address] [place] [address] PCP - General Internal Medicine 12/09/13 Shasta Sutton Endocrinology 08/23/24 documented as of this encounter
--- OUTSIDE RECORDS SUMMARY | 2025-01-11 14:31 | XMS_ITS | Encounter Summary ---
Author Organization [employer] Address [address] [facility] [address] 7t [place] [address] Care Team Providers Care Clinical Lab Clerk Name Role Phone Juan R Blount MD Primary Care Provide r Reason for Visit * Reason Comments Med Refill Encounter Details Date Type Department Care Team ([facility] st Contact Info) Description 06/17/2024 Refill [facility] MEDICINE 230 [place], [place] [phone] Name, MD Fco [address] [place] [address] Mixed hyperlipidemia Social History Tobacco Use Types [...] Description 01/25/2025 1:00 PM EDT Office Visit [facility] MEDICINE [address] [place] [address] Juan R Blount MD [address] [place] [address] documented as of this encounter Visit Diagnoses Diagnosis Mixed hyperlipidemia documented in this encounter Additional Health Concerns Assessment Noted Time PHQ-9 Depression Total Score: 3 01/15/20 24 1:38 PM EDT documented as of this encounter Care Teams Clinical Lab Clerk Relationship Specialty Start Date End Date Juan R Blount MD [address] [place] [address] PCP - General Internal Medicine 12/09/13 Shasta Sutton Endocrinology 08/23/24 documented as of this encounter
--- OUTSIDE RECORDS SUMMARY | 2025-01-11 14:31 | XMS_ITS | Clinical Summary ---
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 (FreeStyle Crystal [facility] [place]) deviceIndications :Type 2 diabetes mellitus with hyperglycemia, with long-term current use of insulin ([facility]) 1 Device before breakfast, before lunch, and [...] hyperglycemia, with long-term current use of insulin ([facility]) TAKE 1 TABLET BY MOUTH EVERY MORNING 90 tablet 3 Active amLODIPine (Norvasc) 5 MG tabletIndications :Essential hypertension TAKE 1 TABLET BY MOUTH EVERY EVENING 90 tablet Active BD Pen Needle Janene U/F 32G X 4 MM miscIndications:T ype 2 diabetes mellitus without complication, with long-term current use of insulin ([facility]) USE DIRECTED FOUR TIMES DAILY 100 each Active TRUEplus Lancets 33G miscIndications:T ype 2 diabetes mellitus with hyperglycemia ([facility]),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 ([facility]) TEST BLOOD SUGAR FOUR TIMES DAILY 300 each Active glucose blood (FREESTYLE LITE) test stripIndications: Type 2 diabetes mellitus with hyperglycemia ([facility]),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 2 mL 3 06/20/2 025 Active gabapentin (Neurontin) 800 MG tabletIndications :Type 2 diabetes mellitus with hyperglycemia, with long-term current use of insulin ([facility]) TAKE 1 CAPSULE BY MOUTH THREE TIMES [...] EVERY EVENING 90 tablet 025 Active Umeclidinium Bayard (Incruse Ellipta) 62.5 MCG/ACT aerosol powderIndications :Wheeze INHALE 1 PUFF BY MOUTH EVERY DAY AT THE SAME TIME RINSE MOUTH AFTER USING 1 Act 1 025 Active zolpidem (Ambien) 10 MG tabletIndications :Primary insomnia TAKE 1 TABLET BY MOUTH AT BEDTIME NEEDED FOR SLEEP 30 tablet 025 Active Umeclidinium Bayard (Incruse Ellipta) 62.5 MCG/ACT aerosol powderIndications :Wheeze [...] hypertensive, diabetic and a smoker. Seen by Neonatal Surgeon Dr Sarmiento 10/20/2024 He ordered an ECHO [...] rare follicular cells seen in the sample, [place] category 1. She discussed with the patient that nondiagnostic results yield a 5-20% risk of malignancy. At this point the plan is to repeat the biopsy in about 3 months. Box Truck Owner Operator will arrange for repeat FNA left mid [...] 1:39 PM EDT): Patient was admitted to [facility] from 12/26-12/28/2023 For evaluation of intermittent right [...] the ER MRI Brain 12/28/2023 negative at [facility] Etiology ? Neuropathy, Lumbar radiculopathy Pt also [...] requested from Neurology She was seen at [facility] 08/2024 and was supposed to [...] is now under the care of Manager Web Dr Holm last seen 05/11/2019 He ordered [...] Eye exam was last done on: 08/2022 [facility] No retinopathy Microalbumin checked on: [...] Eye exam was last done on: 08/2022 [facility] No retinopathy Microalbumin checked on: [...] Type Department Care Team Description 01/08/2025 Refill [facility] [address] [place] [address] Juan R Blount MD Type 2 diabetes mellitus without complication, with long-term current use of insulin ([facility]) 12/29/2024 Orders Only GENERIC EXTERNAL DATA DEPARTMENT Provider, Generic External Data 12/27/2024 Refill [facility] [address] [place] [address] Aggie Guan MD Primary insomnia 12/24/2024 Telephone [facility] [address] [place], [place] [phone] Juliana Goode RN [facility] Neurology 12/23/2024 1:15 PM EDT Office Visit [facility] [address], [place] [phone] Juan R Blount MD Type 2 diabetes mellitus with diabetic polyneuropathy, with long-term current use of insulin ([facility]) (Primary Dx); Right thyroid nodule; Abnormal ECG; Malignant neoplasm of right female breast, unspecified estrogen receptor status, unspecified site of breast ([facility]); Polyneuropathy associated with underlying disease ([facility]); Chronic midline low back pain without sciatica; Neck pain on right side; Preventative health care 12/23/2024 Travel 12/21/2024 Refill [facility] [address] [place] [address] Juan R Blount MD Wheeze 12/17/2024 Refill [facility] [address] [place] [address] Juan R Blount MD Asthma, unspecified asthma severity, unspecified whether complicated, unspecified whether persistent 12/14/2024 Orders Only GENERIC EXTERNAL DATA DEPARTMENT Provider, Generic External Data 12/09/2024 Refill [facility] [address] [place] [address] Juan R Blount MD Mixed hyperlipidemia; Wheezing 12/02/2024 Telephone [facility] [address] [place] [address] Juan R Blount MD [facility] QUESTIONS 11/12/2024 Refill [facility] [address], [place] [phone] Juan R Blount MD Primary insomnia 11/10/2024 Orders Only GENERIC EXTERNAL DATA DEPARTMENT Provider, Generic External Data 11/10/2024 Refill [facility] [address] [place] [address] Juan R Blount MD Essential hypertension 11/09/2024 Refill [facility] [address], [place] [phone] Juan R Blount MD 10/28/2024 Refill [facility] [address] [place] [address] Elham Fuentes MD Asthma, unspecified asthma severity, unspecified whether complicated, unspecified whether persistent 10/19/2024 Telephone [facility] [address] [facility] [place] [address] Prisca Singh, RN Care Coordination 10/18/2024 Orders Only GENERIC EXTERNAL DATA DEPARTMENT Provider, Generic External Data 10/12/2024 10:30 AM EDT Office Visit [facility] [address] [facility] [address] Juan R Blount MD Preoperative examination (Primary Dx); Abnormal ECG; Type 2 diabetes mellitus without complication, with long-term current use of insulin ([facility]) 10/12/2024 Travel 10/11/2024 Telephone [facility] [place] [address] Juan R Blount MD chart prep from Last 3 Months Immunizations Immunization Administration [...] 1:00 PM EDT Office Visit [facility] [address] [place] [address] Juan R Blount MD [address] [place] [address] Health Maintenance Due Date Last Done Comments [...] 9 PM EDT 12/29/2024 12:59 PM EDT [facility] - 01/05/2025 4:58 PM EDT ----- ------- Name: Torrie Sy Age/Sex: 69/F : 1955 Unit#: [id number] Attend Dr: George Bearden MD Re12/29/24 [facility] Disch: ----- ------- SPEC : [id number] RECD: 12/29/24 STATUS: AMY WEBSTER NUM: [id number] HAILEY: 12/29/[address] [facility] [address]: George Bearden MD ENTERED: 12/29/24 SP TYPE: Surgical OTHR DR: Juan R Bey MD ORDERED: HE Stain/6, Gross Micro L3, Gross Micro L5/5, Cytokeratin/6, ER/4, OR, IHC/3, Add. immunos/2, IHC ER/OR/Her2N/6, CK5-6/4, E-cadherin, Ki-67, [id number] Diagnosis A. Breast, right, lumpectomy: -Invasive ductal [...] Torrie Sy Age/Sex: 69/F : 1955 Unit#: [id number] Attend Dr: George Bearden MD Re12/29/24 [facility] Disch: ----- ------- SPEC : [id number] RECD: 12/29/24-125 STATUS: AMY WEBSTER NUM: [id number] HAILEY: 12/29/24-[address] [facility] [address]: George Bearden MD ENTERED: 12/29/24-1305 SP TYPE: Surgical OTHR DR: Juan R Bey MD ORDERED: HE Stain/6, Gross Micro L3, Gross Micro L5/5, Cytokeratin/6, ER/4, OR, IHC/3, Add. immunos/2, IHC ER/OR/Her2N/6, CK5-6/4, E-cadherin, Ki-67, [id number] Diagnosis (Continued) Nuclear grade: 1 Extent: EIC [...] margin F Lymph nodes Number examined: 3 [place] nodes: 3 Axillary nodes: 0 Number involved: [...] Torrie Sy Age/Sex: 69/F : 1955 Unit#: [id number] Attend Dr: George Bearden MD Re12/29/24 [facility] Disch: ----- ------- SPEC : [id number] RECD: 12/29/24 STATUS: AMY WEBSTER NUM: [id number] HAILEY: 12/29/[address] [facility] [address]: George Bearden MD ENTERED: 12/29/24 SP TYPE: Surgical OTHR DR: Juan R Bey MD ORDERED: HE Stain/6, Gross Micro L3, Gross Micro L5/5, Cytokeratin/6, ER/4, OR, IHC/3, Add. immunos/2, IHC ER/OR/Her2N/6, CK5-6/4, E-cadherin, Ki-67, [id number] Clinical History Neoplasm of right breast Microscopic [...] Material Received A. Right breast lumpectomy B. [place] node #1, count 1497 C. Additional axillary tissue D. [place] node #2, count 273 E. [place] node #3, count 204 F. Anterior inferior [...] other cysts, lesions or nodules are identified. Monotyper sections are submitted in CONTINUED ON NEXT PAGE ----- ------- Name: Torrie Sy Age/Sex: 69/F : 1955 [id number]#: [id number] Attend Dr: George Bearden MD Re12/29/24 Status: [facility] Location: [facility] Disch: ----- ------- SPEC : [id number] RECD: 12/29/24 STATUS: AMY WEBSTER NUM: [id number] HAILEY: 12/29/[address] [facility] [address]: George Bearden MD ENTERED: 12/29/24 SP TYPE: Surgical OTHR DR: Juan R Bey MD ORDERED: HE Stain/6, Gross Micro L3, Gross Micro L5/5, Cytokeratin/6, ER/4, OR, IHC/3, Add. immunos/2, IHC ER/OR/Her2N/6, CK5-6/4, E-cadherin, Ki-67, [id number] Gross Description (Continued) cassettes A1-A10 from medial [...] lobular fat. No lymph nodes are identified. Monotyper sections are submitted in a cassette labeled [...] Torrie Sy Age/Sex: 69/F : 1955 Unit#: [id number] Attend Dr: George Bearden MD Re12/29/24 [facility] Disch: ----- ------- SPEC : [id number] RECD: 12/29/24 STATUS: AMY WEBSTER NUM: [id number] HAILEY: 12/29/24124 [facility] DR: George Bearden MD ENTERED: 12/29/240881 SP TYPE: Surgical OTHR DR: Juan R Bey MD ORDERED: HE Stain/6, Gross Micro L3, Gross Micro L5/5, Cytokeratin/6, ER/4, OR, IHC/3, Add. immunos/2, IHC ER/OR/Her2N/6, CK5-6/4, E-cadherin, Ki-67, [id number] Gross Description (Continued) prior biopsy side. The [...] micronodular focus along the prior biopsy side. Monotyper sections perpendicular to the anterior-inferior margins are submitted in cassettes F1-F10, from medial to lateral, respectively. CEDS Interpretive Information All tests are performed on formalin-fixed, paraffin-embedded tissue using automated immunostain methods: Estrogen receptor: Clone SP1; [place] CONFIRM ultraView [place] DAB Progesterone receptor: Clone 1E2; [place] CONFIRM ultraView [place] DAB HER2: FDA-approved [place] PATHWAY anti-HER-2/gail (4B5) Monoclonal; ultraView [place] DAB Positive and negative controls are performed [...] Torrie Sy Age/Sex: 69/F : 1955 Unit#: [id number] Attend Dr: George Bearden MD Re12/29/24 [facility] Disch: ----- ------- SPEC : [id number] RECD: 12/29/24 STATUS: AMY WEBSTER NUM: [id number] HAILEY: 12/29/[address]: George Bearden MD ENTERED: 12/29/24-5838 SP TYPE: Surgical OTHR DR: Juan R Bey MD ORDERED: HE Stain/6, Gross Micro L3, Gross Micro L5/5, Cytokeratin/6, ER/4, OR, IHC/3, Add. immunos/2, IHC ER/OR/Her2N/6, CK5-6/4, E-cadherin, Ki-67, [id number] Gross Description (Continued) purposes and their performance [...] and Progesterone Receptor Testing in Breast Cancer: [place] Society of Clinical Oncology/College of [place] Pathologists Guideline Update. Arch of Pathol Lab Med. 2020; 144(5): 545-563. Arely CHILDERS, Roosevelt BABIN, Marie FISHER, et al. Her2 testing in breast cancer: [place] Society of Clinical Oncology/College of [place] Pathologists clinical practice guideline focused update. Arch Pathol Lab Med. 2018; 142(11): 2196-9576. Mitch N, Lion P, et al. Adjuvant abemaciclib combined with endocrine therapy for high- risk early breast cancer: updated efficacy and Ki-67 analysis from the monarchE study. Lita Oncol. 2020;32(12):4878-8166. Roosevelt MAYES, Yossi MADRIGAL, et al. ASCO/CAP Guideline Recommendations for Immunohistochemical Testing of Estrogen and Progesterone Receptors in Breast Cancer. J Clin Oncol, 28 (16), 2010: 5752-9056. This case was reviewed intradepartmentally. Results given to Dr. Bearden by secure text by Dr. Talley on 01/05/2025 at 4:43 pm. Special studies ordered and performed: Immunostains for CK 5/6 and ER on A3, F4, and F10; ER, OR, HER2 and Ki 67 on A5; pankeratin on B1, D1 and E1. IHC S/NG Disclaimer NOTE: Unless otherwise stated, all tissue is formalin-fixed and paraffin-embedded. Some or all of the immunohistochemical tests reported herein may have been developed and their performance characteristics determined by [facility]. They have not been cleared [...] Torrie Sy Age/Sex: 69/F : 1955 Unit#: [id number] Attend Dr: George Bearden MD Re12/29/24 [facility] Disch: ----- ------- SPEC : [id number] RECD: 12/29/24-125 STATUS: AMY WEBSTER NUM: [id number] HAILEY: 12/29/24-[address] [facility] [address]: George Bearden MD ENTERED: 12/29/24-7868 SP TYPE: Surgical OTHR DR: Juan R Bey MD ORDERED: HE Stain/6, Gross Micro L3, Gross Micro L5/5, Cytokeratin/6, ER/4, OR, IHC/3, Add. immunos/2, IHC ER/OR/Her2N/6, CK5-6/4, E-cadherin, Ki-67, [id number] Copies To: Juan R Bey MD [address] [address] George Bearden MD [facility] General Surgeons [address] [place] [address] ----- ------- Signed (signature on file) Anna Wilkinson 01/05/25 1658 ----- ------- END OF REPORT us Generic External Data Provider LAB BLOOD ORDERAB LES Final Result [facility] [address] [place] [phone] * BI MM SURGICAL SPECIMEN (12/29/2024 12:45 PM EDT) Anatomical Region Laterality Modality Breast Bilateral Mammography 12/29/2024 12:4 5 PM EDT Narrative 12/29/2024 1:09 PM EDT [place] [id number] Mammography Report Signed Patient: Torrie Sy MR#: [id number] : 1955 Acct:[id number] Age/Sex: 69 / F ADM Date: 12/29/24 Loc: [facility] Attending Dr: George Bearden MD Ordering Physician: George Bearden MD Results: Date of Service: 12/29/24 Follow Up: Procedure(s): MM surgical specimen Accession Number(s): [id number] cc: Juan R Bey MD; George Bearden MD Single right breast specimen radiograph demonstrates the tag and the marker clip within the specimen. Electronically signed by: Gabriella Campuzano DO 12/29/2024 01:06 PM EDT RP Dictated By: Gabriella Campuzano DO Signed By: <Electronically signed by Gabriella Campuzano DO in OV> 12/29/24 1306 DD/ 1245 TD/TT: 12/29/24 1300 Collator Operator: Procedure Note Donotuseinterpreter, Image - 12/29/[address] [address] [id number] Mammography Report Signed Patient: Torrie SyMR#: [id number] : 5Acct:[id number] Age/Sex: 69 / FADM Date: 12/29/24 Loc: [facility] Attending Dr: George Bearden MD Ordering Physician: [facility]arden [facility] Date of Service: 12/29/24Follow Up: Procedure(s): MM surgical specimen Accession Number(s): [id number] cc: Juan R Bey MD; George Bearden MD Single right breast specimen radiograph demonstrates the tag and the marker clip within the specimen. Electronically signed by: Gabriella Campuzano DO 12/29/2024 01:06 PM EDT RP Dictated By: Gabriella Campuzano DO Signed By: <Electronically signed by Gabriella Campuzano DO in OV> 12/29/24 1306 DD/ 1245 TD/TT: 12/29/24 1300 Collator Operator: [facility] External Provider IMG BI PROCEDURES Final Result * NM SENTINEL NODE W IMAGING (12/29/2024 8:23 AM EDT) Anatomical Region Laterality Modality Nuclear Medicine 12/29/2024 8:23 AM EDT Narrative 12/29/2024 12:34 PM EDT [address] [address] Nuclear Medicine Report Signed Patient: Torrie Sy MR#: [id number] : 1955 Acct:[id number] Age/Sex: 69 / F ADM Date: 12/29/24 Loc: [facility] Attending Dr: George Bearden MD Ordering Physician: George Bearden MD Date of Service: 12/29/24 Procedure(s): NM sentinel node w imaging Accession Number(s): [id number] cc: Juan R Bey MD; George Bearden [...] Simon Arnold MD 12/29/2024 12:32 PM EDT Dictated By: Simon Arnold MD Signed By: <Electronically signed by Simon Arnold MD in OV> 12/29/24 1232 DD/ 08 TD/TT: 12/29/24 09 Collator Operator: [facility] Procedure Note Donotuseinterpreter, Image - 12/29/[address] [address] Nuclear Medicine Report Signed Patient: Torrie SyMR#: [id number] : 5Acct:[id number] Age/Sex: 69 / FADM Date: 12/29/24 Loc: [facility] Attending Dr: George Bearden MD Ordering Physician: George Bearden MD Date of Service: 12/29/24 Procedure(s): NM sentinel node w imaging Accession Number(s): [id number] cc: Juan R Bey MD; George Bearden [...] Simon Arnold MD 12/29/2024 12:32 PM EDT Dictated By: Simon Arnold MD Signed By: <Electronically signed by Simon Arnold MD in OV> 12/29/24 1232 DD/ 2 TD/TT: 12/29/24 09 Collator Operator: JENARO [facility] External Provider IMG NM PROCEDURES Final Result * (ABNORMAL) Glucose, Whole Blood (12/29/2024 7:43 AM EDT) Glucose, Whole Blood 239(H) 60 - 115 mg/dL [facility] Comment:METER #: [id number] 12/29/2024 7:43 AM EDT 12/29/2024 7:47 AM EDT us Generic External Data Provider LAB BLOOD ORDERAB LES Final Result [facility] [address] [place] [address] [phone] * Mammogram Diagnostic Right (12/27/2024 11:13 AM EDT) Anatomical Region Laterality Modality Breast Right Mammography 12/27/2024 11:1 3 AM EDT Narrative 12/27/2024 1:02 PM EDT [facility] [address] [place] [address] Mammography Report Signed Patient: Torrie Sy MR#: [id number] : 1955 Acct:[id number] Age/Sex: 69 / F ADM Date: 12/27/24 Loc: HO.MAMMO Attending Dr: George Bearden MD Ordering Physician: George Bearden MD Results: 6Know n Biopsy Proven Malignancy Date of Service: 12/27/24 Follow Up: Surgical Consult Procedure(s): MM diagnostic mammo unilat RT Accession Number(s): [id number] cc: Juan R Bey MD; George Bearden [...] carbonated lidocaine 1%: 10 cc. LOCALIZATION SYSTEM: -Healthy [employer] LOCallizer Wire-Free Guidance System with 12g needle applicator. -Length: 7 cm. -RADIOFREQUENCY TAG: ID # [id number] RF Tag ID confirmed with LOCalizer Guidance [...] -Status post right breast RFID localization (tag ID#[id number]). Electronically signed by: Jonathan Bacon MD 12/27/2024 01:00 PM EDT Dictated By: Jonathan Bacon MD Signed By: <Electronically signed by Jonathan Bacon MD in OV> 12/27/24 1300 DD/ 1113 TD/TT: 12/27/24 1120 Collator Operator: Procedure Note Donotuseinterpreter, Image - 12/27/2024 [facility] [address] [place] [address] [place] [address] Mammography Report Signed Patient: Torrie Sy#: [id number] : 5Acct:[id number] Age/Sex: 69 / FADM Date: 12/27/24 Loc: [facility] Attending Dr: George Bearden MD Ordering Physician: George Bearden MDResults: 6Know n Biopsy Proven Malignancy Date of Service: 12/27/24Follow Up: Surgical Consult Procedure(s): MM diagnostic mammo unilat RT Accession Number(s): [id number] cc: Juan R Bey MD; George Bearden [...] carbonated lidocaine 1%: 10 cc. LOCALIZATION SYSTEM: -Healthy [employer] LOCallizer Wire-Free Guidance System with 12g needle applicator. -Length: 7 cm. -RADIOFREQUENCY TAG: ID # [id number] RF Tag ID confirmed with LOCalizer Guidance [...] -Status post right breast RFID localization (tag ID#[id number]). Electronically signed by: Jonathan Bacon MD 12/27/2024 01:00 PM EDT Dictated By: Jonathan Bacon MD Signed By: <Electronically signed by Jonathan Bacon MD in OV> 12/27/24 1300 DD/ 1113 TD/TT: 12/27/24 1120 Collator Operator: [facility] External Provider IMG BI PROCEDURES Edited Result - Final * US breast needle loc RT - RFID (12/27/2024 10:32 AM EDT) Anatomical Region Laterality Modality Abdomen Ultrasound 12/27/2024 10:3 2 AM EDT Narrative 12/27/2024 1:02 PM EDT [address] [place] [address] Ultrasound Report Signed Patient: Torrie Sy MR#: [id number] : 1955 Acct:[id number] Age/Sex: 69 / F ADM Date: 12/27/24 Loc: [facility] Attending Dr: George Bearden MD Ordering Physician: George Bearden MD Date of Service: 12/27/24 Procedure(s): US Breast RF Tag Device Right Accession Number(s): [id number] cc: Juan R Bey MD; George Bearden [...] carbonated lidocaine 1%: 10 cc. LOCALIZATION SYSTEM: -Healthy [employer] LOCallizer Wire-Free Guidance System with 12g needle applicator. -Length: 7 cm. -RADIOFREQUENCY TAG: ID # [id number] RF Tag ID confirmed with LOCalizer Guidance [...] -Status post right breast RFID localization (tag ID#[id number]). Electronically signed by: Jonathan Bacon MD 12/27/2024 01:00 PM EDT RP Workstation: [employer] Dictated By: Jonathan Bacon MD Signed By: <Electronically signed by Jonathan Bacon MD in OV> 12/27/24 1300 DD/ 1032 TD/TT: 12/27/24 1120 Collator Operator: Procedure Note Donotuseinterpreter, Image - [facility] [address] [place] [address] Ultrasound Report Signed Patient: Torrie SyMR#: [id number] : 5Acct:[id number] Age/Sex: 69 / FADM Date: 12/27/24 Loc: [facility] Attending Dr: George Bearden MD Ordering Physician: George Bearden MD Date of Service: 12/27/24 Procedure(s): US Breast RF Tag Device Right Accession Number(s): [id number] cc: Juan R Bey MD; George Bearden [...] carbonated lidocaine 1%: 10 cc. LOCALIZATION SYSTEM: -Healthy [employer] LOCallizer Wire-Free Guidance System with 12g needle applicator. -Length: 7 cm. -RADIOFREQUENCY TAG: ID # [id number] RF Tag ID confirmed with LOCalizer Guidance [...] -Status post right breast RFID localization (tag ID#[id number]). Electronically signed by: Jonathan Bacon MD 12/27/2024 01:00 PM EDT Dictated By: Jonathan Bacon MD Signed By: <Electronically signed by Jonathan Bacon MD in OV> 12/27/24 1300 DD/ 1032 TD/TT: 12/27/24 1120 Collator Operator: us [facility] External Provider IMG US PROCEDURES Edited Result - Final * (ABNORMAL) Glucose, Whole Blood (12/14/2024 11:00 AM EDT) Glucose, Whole Blood 213(H) 60 - 115 mg/dL [facility] Comment:METER #: [id number] Testing performed in the Endocrinology Department [address] , [address], [place]. 12/14/2024 11:0 0 AM EDT 12/14/2024 11:04 AM EDT us Generic External Data Provider LAB BLOOD ORDERAB LES Final Result [facility] [address] [place] [phone] * Stress test with myocardial perfusion (11/25/2024 9:41 AM EDT) 11/25/2024 9:41 AM EDT Narrative [facility] - 11/28/2024 9:19 AM EDT [place] [address] Nuclear Medicine Report Signed Patient: Torrie Sy MR#: [id number] : 1955 Acct:[id number] Age/Sex: 69 / F ADM Date: 11/25/24 Loc: [facility] Attending Dr: David Sarmiento MD Ordering Physician: David Sarmiento MD Date of Service: 11/25/24 Procedure(s): NM cardiolite stress test Accession Number(s): [id number] cc: Juan R Bey MD; David Sarmiento [...] 11/28/24 0915 DD/ 0941 TD/TT: 11/26/24 1400 Collator Operator: Procedure Note Donotuseinterpreter, Image - 11/28/2024 [place] [address] Nuclear Medicine Report Signed Patient: Torrie SyMR#: [id number] : 5Acct:[id number] Age/Sex: 69 / FADM Date: 11/25/24 Loc: HO.CARD Attending Dr: David Sarmiento MD Ordering Physician: David Sarmiento MD Date of Service: 11/25/24 Procedure(s): LA cardiolite stress test Accession Number(s): [id number] cc: Juan R Bey MD; David Sarmiento [...] Sarmiento MD 11/28/2024 09:15 AM EDT Workstation: [email or web address] Dictated By: David Sarmiento MD Signed By: <Electronically signed by David Sarmiento MD inOV> 11/28/24 0915 DD/ 0941 TD/TT: 11/26/24 1400 Collator Operator: [facility] External Provider CV STRE SS PROCEDURES Edited Result - Final [facility] [address] [place] [address] [phone] * Cell Block (11/10/2024 11:26 AM EDT) 11/10/2024 11:2 6 AM EDT 11/10/2024 11:44 AM EDT Narrative [facility] - 11/11/2024 10:45 AM EDT ----- ------- Name: Torrie Sy Age/Sex: 69/F : 1955 [facility]#: [id number] Unit#: [id number] Attend Dr: Eduarda Quintanilla MD Re11/10/24 Status: DEP REF Location: [facility] Disch: ----- ------- SPEC : [id number] RECD: 11/10/24-1144 STATUS: AMY WEBSTER NUM: [id number] [place]: 11/10/24-[address] [facility] [address]: Eduarda Quintanilla MD ENTERED: 11/10/24-1212 SP TYPE: Cytology OTHR DR: Juan R Bey MD ORDERED: Cell Block, Fine Ndl Asp Diagnosis Thyroid, left mid lower pole 3.3 cm nodule, fine needle aspiration: Non-diagnostic ([place] category I). COMMENT: Only rare groups of [...] developed and their performance characteristics determined by [facility]. They have not been cleared or approved by the U.S. Food and Drug Administration (FDA). However, the FDA has determined that such clearance or approval is not necessary. This laboratory is certified under the Clinical Laboratory Improvement Amendments of 1988 (CLIA) as qualified to perform high complexity clinical laboratory testing. Copies To: Juan R Bey MD [address] [id number] Eduarda Quintanilla MD [facility] Endocr[facility] [address] [place] [id number] CONTINUED ON NEXT PAGE ----- ------- Name: Torrie Sy Age/Sex: 69/F : 1955 Unit#: [id number] Attend Dr: Eduarda Quintanilla MD Re11/10/24 Status: DEP REF Location: [facility] Disch: ----- ------- SPEC : [id number] RECD: 11/10/24-114 STATUS: AMY WEBSTER NUM: [id number] [place]: 11/10/24-[address] [facility] [address]: Eduarda Quintanilla MD ENTERED: 11/10/24-1212 SP TYPE: Cytology OTHR DR: Juan R Bey MD ORDERED: Cell Block, Fine Ndl Asp Copies To: (Continued) [email or web address] ----- ------- Signed (signature on file) Juan Blunt MD 11/11/24 1045 ----- ------- END OF REPORT us Generic External Data Provider LAB CYTOLOGY STEVAN PEREZ Final Result [facility] [address] [place], [place] [phone] * (ABNORMAL) CBC auto differential (10/18/2024 2:56 PM EDT) White Blood Count 14.1(H) 4.8 - 10.8 X10*3/uL [facility] Red Blood Count 4.18(L) 4.20 - 5.50 X10*6/uL [facility] Hemoglobin 12.7 12.0 - 16.0 g/dl [facility] Hematocrit 38.6 37.0 - 47.0 % [facility] Mean Corpuscular Volume 92.3 80.0 - 98.0 fL [facility] Mean Corpuscular Hemoglobin 30.4 27.0 - 33.0 pg [facility] Mean Corpuscular HGB Conc 32.9 31.0 - 35.0 g/dl [facility] Red Cell Distribution Width 13.7 11.0 - 16.0 % [facility] Platelet Count 375 160 - 400 X10*3/uL [facility] Mean Platelet Volume 10.5 9.4 - 12.3 fL [facility] Neutrophils Percent Auto 67.2 45 - 73 % [facility] Imm Gran Pct Auto 0.4 0.0 - 0.4 % [facility] Lymphocytes Percent Auto 25.1 20 - 40 % [facility] Monocytes Percent Auto 4.8 2 - 11 % [facility] Eosinophils Percent Auto 1.6 0 - 4 % [facility] Basophils Percent Auto 0.9 0 - 2 % [facility] NRBC Pct Auto 0.0 0.0 - 0.2 /100WBC [facility] Neutrophils Absolute Auto 9.5(H) 2.0 - 8.3 x10*3/uL [facility] Imm Gran Abs Auto 0.06(H) 0.00 - 0.03 X10*3/uL [facility] Lymphocytes Absolute Auto 3.5 1.2 - 4.9 X10*3/uL [facility] Monocytes Absolute Auto 0.7 0.1 - 1.2 X10*3/uL [facility] Eosinophils Absolute Auto 0.2 0.0 - 0.4 X10*3/uL [facility] Basophils Absolute Auto 0.1 0.0 - 0.2 X10*3/uL [facility] NRBC Abs Auto 0.000 0.0 - 0.012 X10*3/uL [facility] Blood Venous blood specimen / Unknown 10/18/2024 2:56 PM EDT 10/18/2024 2:56 PM EDT us Juan R Vega MD LAB BLOOD ORDERABLES Final Result [facility] [address] [place] [phone] * ALT (10/18/2024 2:56 PM EDT) Alanine Aminotransferase 9 0 - 31 U/L [facility] 10/18/2024 2:56 PM EDT 10/18/2024 2:56 PM EDT us Generic External Data Provider LAB BLOOD ORDERAB LES Final Result Performing Organization Address [facility] Co de Phone Number [facility] [address] [place] [phone] * AST (10/18/2024 2:56 PM EDT) Aspartate Amino Transferase 23 5 - 31 U/L [facility] 10/18/2024 2:56 PM EDT 10/18/2024 2:56 PM EDT us Generic External Data Provider LAB BLOOD ORDERAB LES Final Result Performing Organization Address [facility] Co de Phone Number [facility] [address] [place] [phone] * TSH (10/18/2024 2:56 PM EDT) Thyroid Stimulating Hormone 2.14 0.32 - 4.0 uIU/mL [facility] Comment:TSH 3rd Generation ( [facility]) 10/18/2024 2:56 PM EDT 10/18/2024 2:56 PM EDT us Generic External Data Provider LAB BLOOD ORDERAB LES Final Result Performing Organization Address [facility] Co de Phone Number [facility] [address] [place] [phone] * T4, Free (10/18/2024 2:56 PM EDT) Free T4 (Free Thyroxine) 0.96 0.71 - 1.85 ng/dL [facility] 10/18/2024 2:56 PM EDT 10/18/2024 2:56 PM EDT us Generic External Data Provider LAB BLOOD ORDERAB LES Final Result Performing Organization Address [facility] Co de Phone Number [facility] [address] [place] [phone] * Vitamin B12 (10/18/2024 2:56 PM EDT) Vitamin B12 200 200 - 900 pg/mL [facility] Comment:NORMAL 200-900 PG/ML INDETERMINATE 160-199 PG/ML DEFICIENT < 160 PG/ML 10/18/2024 2:56 PM EDT 10/18/2024 2:56 PM EDT us Generic External Data Provider LAB BLOOD ORDERAB LES Final Result Performing Organization Address City/[facility]/ZIP Co de Phone Number [facility] [address] [place] [phone] * (ABNORMAL) Lipid Panel, Standard (10/18/2024 2:56 PM EDT) Triglycerides 186(H) <150 mg/dL [facility] Comment:Desirable Triglyceri de: less than 150 mg/dLBorderline High Triglyceride 150-199 mg/dLHigh Triglyceride: 200-499 mg/dLVery High Triglyceride: greater than or equal to 5OO mg/dL Cholesterol 127 <200 mg/dL [facility] Comment:Desirable Cholestero l: less than 200 mg/dLBorderline High Cholesterol: 200-239 mg/dLHigh Cholesterol: greater than 239 mg/dL LDL Cholesterol Calculated 56 <100 mg/dL [facility] Comment:Desirable LDL: less than 100 mg/dLNear Optimal/Above Optimal LDL: 110- 129 mg/dLBorderline High LDL: 130-159 mg/dLHigh LDL: 160-189 mg/dLVery High LDL: greater than or equal to 190 mg/dL HDL Cholesterol 34(L) >40 mg/dL [facility] Comment:Desirable HDL: great er than 40 mg/dL Note: This HDL assay may give artificially low results in patients with liver disease. 10/18/2024 2:56 PM EDT 10/18/2024 2:56 PM EDT us Generic External Data Provider LAB BLOOD ORDERAB LES Final Result [facility] [address] [place] [phone] * (ABNORMAL) Basic Metabolic Panel (10/18/2024 2:56 PM EDT) Sodium 141 135 - 145 mmol/L [facility] Potassium 4.8 3.3 - 5.1 mmol/L [facility] Chloride 106 96 - 108 mmol/L [facility] Carbon Dioxide 28 22 - 29 mmol/L [facility] Anion Gap 12 12 - 20 [facility] Urea Nitrogen (BUN) 16 9 - 16 mg/dL [facility] Creatinine, Serum 0.85 0.5 - 1.4 mg/dL [facility] Estimated Glomerular Filt Rate >60 [facility] Comment:Chronic Kidney Disea se: Estimated GFR < 60 mL/min/[id number] Kidney Disease: Estimated GFR < 15 mL/min/1.73m2 Glucose 148(H) 60 - 115 mg/dL [facility] Calcium 9.5 8.4 - 10.2 mg/dL [facility] Blood Venous blood specimen / Unknown 10/18/2024 2:56 PM EDT 10/18/2024 2:56 PM EDT us Juan R Vega MD LAB BLOOD ORDERABLES Final Result [facility] [address] [place] [phone] * Albumin, Random Urine W/Creatinine (10/18/2024 2:55 PM EDT) Creatinine, Urine 136.42 mg/dL [facility] Microalbumin Urine 28.0 mg/L [facility] Microalbum Creatinine Ratio Ur 20.5 <30 ug/mg cr [facility] Comment:Albumin/Creatinine R atio Reference Ranges: Normal: < 30 ug/mg creatinine Microalbuminuria: 30 - 300 ug/mg creatinineClinical Albuminuria: > 300 ug/mg creatinine 10/18/2024 2:55 PM EDT 10/18/2024 3:23 PM EDT Generic External Data Provider LAB URINE ORDERAB LES Final Result [facility] [address] [place] [phone] * ECG 12 lead (10/12/2024 3:19 PM EDT) Narrative Juan R Blount MD - 10/12/2024 3:19 PM EDT Sinus tachycardia, Vs V2-V3 Juan R Vega MD ECG ORDERABLES Final Result * (ABNORMAL) POCT HGB A1C (10/12/2024 11:09 AM EDT) [facility] Hemoglobin A1C 7.2(A) 4.0 - 6.0 % QC Media Lot # [id number] Lot# Expiration Date Blood 10/12/2024 11:0 9 AM EDT Juan R Vega MD POINT OF CARE TEST EN TER/EDIT ORDERABLES Final Result * POCT Glucose (10/12/2024 10:36 AM EDT) [facility] Glucose Blood, POC 188 60 - 200 mg/dL [employer] Lot # [id number] Lot# Expiration Date Blood Capillary blood specimen / Unknown 10/12/2024 10:36 AM EDT Juan R Vega MD POINT OF CARE TEST EN TER/EDIT ORDERABLES Final Result * Hepatitis Panel, General (02/05/2024 9:25 AM EDT) [facility] Hepatitis A IgM Nonreactive Nonreactive [facility] Comment:IgM antibodies to [place] CRU[place] V not detected; does not exclude earlyacute or recovered HAV infection. ~Hepatitis B Surface Antibody NONREACTIVE Nonreactive [facility] Comment:Nonreactive: < 8.00 mIU/mL Hepatitis B Core Antibody Nonreactive Nonreactive [facility] Hepatitis C Antibody Nonreactive Nonreactive [facility] Comment:Antibodies to HCV no t detected; does not exclude early acuteHCV infection. Hepatitis B Surface Ag Negative Negative [facility] 02/05/2024 9:25 AM EDT 02/05/2024 9:25 AM EDT us Generic External Data Provider LAB BLOOD ORDERAB LES Final Result [facility] [address] [place] [phone] from Last 3 Months or Most Recently Relevant to Health Maintenance Insurance [facility] < 65 [place] [id number] Care Teams Coding Educator Relationship Specialty Start Date End Date Juan R Blount MD [address] [place] [phone] PCP - General Internal Medicine 12/09/13 [facility] 08/23/24
[2025-01-13 12:00] VITALS: BMI 26.8
[2025-01-13 12:01] VITALS: BP 90/57; PULSE 88; RESP 18; TEMP 36.7; O2SAT 98; BMI 26.8
--- NOTE | 2025-01-13 12:24 | HO.ANESPROP2 ---
Documented by User: Winnie Mcnally NP 01/12/25 08:47 HPI - Anesthesia Eval Consult details Narrative: 69yo F for Right Breast Mass Excision (wider excision) s/p same 12/29/24 with GA-LMA 4 Notes: Preop: pt received updraft, repeated says she's at her baseline with breathing. she has secretions that she reassures are normal. surgeon aware of possible tooth infection and wants to be proceed. pt aware she is at increased risk for respiratory infection. Intraop: BP L>R Cardiac optimized. Recent cardiac w/u with [facility] [place] [facility] for abnormal EKG with PCP (Angelito). ECHO and Stress OK. Anesthesia Pre-Procedure Meds Is the patient on any of the following meds?: GLP1/DPP4 PMFSH Active Problems Active Problems: All Active Problems Preoperative cardiovascular examination (Acute) Disc degeneration, lumbar (Acute) Abnormal mammogram of right breast (Acute) Cervicalgia (Acute) Thyroid nodule (Acute) Medication monitoring encounter (Acute) Urge incontinence of urine (Acute) OAB (overactive bladder) (Acute) Cystitis (Acute) Microscopic hematuria (Acute) Lesion of bladder (Acute) Dysuria (Acute) Bilateral carpal tunnel syndrome (Acute) Nicotine dependence (Acute) Urinary frequency (Acute) Urinary incontinence (Acute) OAB (overactive bladder) (Acute) Toe fracture, right (Acute) Invasive ductal carcinoma of right breast in female (Acute) Osteopenia (Acute) Screening examination for infectious disease (Acute) Insulin dependent type 2 diabetes mellitus (Acute) Elevated C-reactive protein (Acute) Elevated sed rate (Acute) Myalgia, upper arm (Acute) Knee instability (Acute) Back pain at L4-L5 level (Acute) Knee pain, right (Acute) Knee pain, left (Acute) Hyperlipidemia (Acute) Lumbar spondylosis (Acute) Type 2 diabetes mellitus with hyperglycemia, with long-term current use of insulin (Acute) Type 2 diabetes mellitus with chronic kidney disease (Acute) Chronic kidney disease, stage 3 unspecified (Acute) Proteinuria (Acute) Type 2 diabetes mellitus with diabetic polyneuropathy (Acute) Essential hypertension (Acute) Past Medical History Medical History History of lumbar puncture (04/28/24) Smoker Environmental allergies Seasonal allergies Cough Walker as ambulation aid Invasive ductal carcinoma of right breast in female CVA (cerebral vascular accident) (2009) Osteopenia Screening examination for infectious disease Insulin dependent type 2 diabetes mellitus Elevated C-reactive protein Elevated sed rate Myalgia, upper arm Knee instability Back pain at L4-L5 level Knee pain, right Knee pain, left UTI (urinary tract infection) Proteinuria Hyperlipidemia Lumbar spondylosis Fibromyalgia Syncope COPD (chronic obstructive pulmonary disease) Depression Asthma Type 2 diabetes mellitus with hyperglycemia, with long-term current use of insulin Type 2 diabetes mellitus with chronic kidney disease Chronic kidney disease, stage 3 unspecified Type 2 diabetes mellitus with diabetic polyneuropathy Essential hypertension Family History Family History Father No problems noted. Mother Heart disease CVD (cardiovascular disease) Diabetes Family history of problems with anesthesia: No Surgical History Surgical History History of lumpectomy of right breast (12/29/24) H/O transurethral resection of bladder tumor (TURBT) (03/05/22) Hx of ultrasound guided needle biopsy Hx of mammogram Hx of colonoscopy Hx of oral surgery Hx of tubal ligation History of Problems with Anesthesia: No Social History Social History Household Members: Family Housing: Apartment Are you a primary resident care aid to a significant other at home: No Do you presently have visiting nurse or other home services: No Alcohol intake: never Patient Tobacco Use Status: Current everyday Tobacco user Tobacco use type: Cigarette Cigarette Packs Per Day: 0.5 Cigarettes Per Day: 2 Use of substances other than those prescribed or required for medical reasons: No Have you been hit, kicked, punched, or otherwise hurt by someone within the past year? If so, by whom?: No Advance Directives: No Advance Directives Information Provided: Yes : No Poor oral hygiene: Yes Meds Allergies Allergy/AdvReac Type Severity Reaction Status Date / Time insulin detemir Allergy Intermediate Rash Verified 01/10/25 10:27 penicillin V Allergy Intermediate Rash Verified 01/10/25 10:27 acetaminophen (From Tylenol) Allergy Mild ITCH,RASH Verified 01/10/25 10:27 iodine (Iodine) Allergy Mild HIVES Verified 01/10/25 10:27 trimerosal Allergy Intermediate rash Uncoded 01/10/25 10:27 Latex Gloves Allergy Mild Rash Uncoded 01/10/25 10:27 METAL Allergy Mild HIVES Uncoded 01/10/25 10:27 Home Medications ?Medication ?Instructions ?Recorded ?Confirmed ?Last Taken ?Type albuterol sulfate 90 mcg/actuation 2 puff inhalation Q6H PRN Wheezing 04/18/20 01/10/25 Unknown History aerosol inhaler aspirin 81 mg tablet,delayed 81 mg PO DAILY 04/18/20 01/10/25 12/27/23 09:00 History release atenolol 25 mg tablet 12.5 mg PO BID 04/18/20 01/10/25 12/27/23 09:00 History fluticasone 500 mcg-salmeterol 50 1 inh inhalation BID 04/18/20 01/10/25 12/27/23 09:00 History mcg/dose blistr powdr for inhalation (Advair Diskus) gabapentin 800 mg tablet 800 mg PO TID 04/18/20 01/10/25 12/27/23 09:00 History losartan 100 mg tablet 100 mg PO DAILY 04/18/20 01/10/25 12/27/23 09:00 History montelukast 10 mg tablet 10 mg PO BEDTIME 04/18/20 01/10/25 Unknown History (Singulair) insulin syringe-needle U-100 1 mL #10 ea 05/29/20 01/10/25 Unknown History 31 gauge x 15/64 zolpidem 10 mg tablet 10 mg PO BEDTIME PRN Insomnia 05/29/20 01/10/25 Unknown History dulaglutide 4.5 mg/0.5 mL 4.5 mg subcut MO@0900 01/21/23 01/10/25 12/16/24 History subcutaneous pen injector (Trulicity) umeclidinium 62.5 mcg/actuation 1 inh inhalation DAILY 01/21/23 01/10/25 12/27/23 09:00 History blister powder for inhalation (Incruse Ellipta) amlodipine 5 mg tablet 5 mg PO BEDTIME 12/28/23 01/10/25 Unknown History tramadol 50 mg tablet 50 mg PO TID PRN Pain 12/28/24 01/10/25 Unknown History Exam Pertinent Lab Results Pertinent Lab Results: Laboratory Tests 10/18/24 14:56 WBC 14.1 H Hgb 12.7 Hct 38.6 Plt Count 375 Sodium 141 Potassium 4.8 Chloride 106 Carbon Dioxide 28 BUN 16 Creatinine 0.85 Narrative Narrative: EKG 10/2024 EKG Details: EKG with underlying sinus rhythm at 88/Min; cannot exclude old septal infarct but could be from body habitus; normal MD and corrected QT. NM cardiolite stress test 11/2024 Impression: 1. Myocardial perfusion imaging study shows normal myocardial perfusion. 2. Gated LVEF is 65% during stress and 69% during rest. 3. Transient ischemic dilatation not present. ECHO 10/2024 NM cardiolite stress test Impression: 1. Myocardial perfusion imaging study shows normal myocardial perfusion. 2. Gated LVEF is 65% during stress and 69% during rest. 3. Transient ischemic dilatation not present. Assessment and Plan Assessment Anesthesia Assessment: Chart Reviewed Final Anesthetic Review Family History of Problems with Anesthesia: No History of Problems with Anesthesia: No Documented by User: Tami Griggs DO 01/13/25 12:27 HPI - Anesthesia Eval Consult details Narrative: 69yo F for Right Breast Mass Excision (wider excision) s/p same 12/29/24 with GA-LMA 4 Patient has known history of chronic cough and secretions - states that it is normal. Smokes about 3 cigarettes daily now. Intraop: BP L>R Cardiac optimized. Recent cardiac w/u with [facility] [place] [facility] for abnormal EKG with PCP (Angelito). ECHO and Stress OK. Anesthesia Pre-Procedure Meds Is the patient on any of the following meds?: GLP1/DPP4 PMFSH Past Medical History Medical History History of lumbar puncture (04/28/24) Smoker Environmental allergies Seasonal allergies Cough Walker as ambulation aid Invasive ductal carcinoma of right breast in female CVA (cerebral vascular accident) (2008) Osteopenia Screening examination for infectious disease Insulin dependent type 2 diabetes mellitus Elevated C-reactive protein Elevated sed rate Myalgia, upper arm Knee instability Back pain at L4-L5 level Knee pain, right Knee pain, left UTI (urinary tract infection) Proteinuria Hyperlipidemia Lumbar spondylosis Fibromyalgia Syncope COPD (chronic obstructive pulmonary disease) Depression Asthma Type 2 diabetes mellitus with hyperglycemia, with long-term current use of insulin Type 2 diabetes mellitus with chronic kidney disease Chronic kidney disease, stage 3 unspecified Type 2 diabetes mellitus with diabetic polyneuropathy Essential hypertension Family History Family History Father No problems noted. Mother Heart disease CVD (cardiovascular disease) Diabetes Family history of problems with anesthesia: No Surgical History Surgical History History of lumpectomy of right breast (12/29/24) H/O transurethral resection of bladder tumor (TURBT) (03/05/22) Hx of ultrasound guided needle biopsy Hx of mammogram Hx of colonoscopy Hx of oral surgery Hx of tubal ligation History of Problems with Anesthesia: No Social History Social History Household Members: Family Housing: Apartment Are you a primary resident care aid to a significant other at home: No Do you presently have visiting nurse or other home services: No Alcohol intake: never Patient Tobacco Use Status: Current everyday Tobacco user Tobacco use type: Cigarette Cigarette Packs Per Day: 0.5 Cigarettes Per Day: 2 Use of substances other than those prescribed or required for medical reasons: No Have you been hit, kicked, punched, or otherwise hurt by someone within the past year? If so, by whom?: No Advance Directives: No Advance Directives Information Provided: Yes : No Poor oral hygiene: Yes Meds Allergies Allergy/AdvReac Type Severity Reaction Status Date / Time insulin detemir Allergy Intermediate Rash Verified 01/10/25 10:27 penicillin V Allergy Intermediate Rash Verified 01/10/25 10:27 acetaminophen (From Tylenol) Allergy Mild ITCH,RASH Verified 01/10/25 10:27 iodine (Iodine) Allergy Mild HIVES Verified 01/10/25 10:27 trimerosal Allergy Intermediate rash Uncoded 01/10/25 10:27 Latex Gloves Allergy Mild Rash Uncoded 01/10/25 10:27 METAL Allergy Mild HIVES Uncoded 01/10/25 10:27 Home Medications ?Medication ?Instructions ?Recorded ?Confirmed ?Last Taken ?Type albuterol sulfate 90 mcg/actuation 2 puff inhalation Q6H PRN Wheezing 04/18/20 01/10/25 Unknown History aerosol inhaler aspirin 81 mg tablet,delayed 81 mg PO DAILY 04/18/20 01/10/25 12/27/23 09:00 History release atenolol 25 mg tablet 12.5 mg PO BID 04/18/20 01/10/25 12/27/23 09:00 History fluticasone 500 mcg-salmeterol 50 1 inh inhalation BID 04/18/20 01/10/25 12/27/23 09:00 History mcg/dose blistr powdr for inhalation (Advair Diskus) gabapentin 800 mg tablet 800 mg PO TID 04/18/20 01/10/25 12/27/23 09:00 History losartan 100 mg tablet 100 mg PO DAILY 04/18/20 01/10/25 12/27/23 09:00 History montelukast 10 mg tablet 10 mg PO BEDTIME 04/18/20 01/10/25 Unknown History (Singulair) insulin syringe-needle U-100 1 mL #10 ea 05/29/20 01/10/25 Unknown History 31 gauge x 15/64 zolpidem 10 mg tablet 10 mg PO BEDTIME PRN Insomnia 05/29/20 01/10/25 Unknown History dulaglutide 4.5 mg/0.5 mL 4.5 mg subcut MO@0900 01/21/23 01/10/25 12/16/24 History subcutaneous pen injector (Trulicity) umeclidinium 62.5 mcg/actuation 1 inh inhalation DAILY 01/21/23 01/10/25 12/27/23 09:00 History blister powder for inhalation (Incruse Ellipta) amlodipine 5 mg tablet 5 mg PO BEDTIME 12/28/23 01/10/25 Unknown History tramadol 50 mg tablet 50 mg PO TID PRN Pain 12/28/24 01/10/25 Unknown History Exam Exam Date and Time: 01/13/25 1225 Height,Weight and Vital Signs: Height 5 ft 6 in Weight 75.296 kg Vital Signs Temperature 98.0 F 01/13/25 12:01 Pulse Rate 88 09/25/25 12:01 Respiratory Rate 18 01/13/25 12:01 Blood Pressure 90/57 L 01/13/25 12:01 Pulse Oximetry 98 01/13/25 12:01 Oxygen Delivery Method Room Air 01/13/25 12:01 Temperature 98.0 F 01/13/25 12:01 Pulse Rate 88 01/13/25 12:01 Respiratory Rate 18 01/13/25 12:01 Blood Pressure 90/57 L 01/13/25 12:01 Pulse Oximetry 98 01/13/25 12:01 Oxygen Delivery Method Room Air 01/13/25 12:01 Airway Mallampati Class: III TM Dist: >3cm Neck ROM: Full Loose/Missing/Broken Teeth: Yes (edentulous upper jaw; several missing teeth on lower jaw and previously had a loose molar which has improved - patient reports sensitivity in the root ) Heart: S1S2 Lungs: Bilateral rhonchi Assessment and Plan Assessment Anesthesia Assessment: Anesthesia Plan Discussed and Chart Reviewed Final Anesthetic Review Family History of Problems with Anesthesia: No History of Problems with Anesthesia: No NPO: Yes ASA Class: III Final Preanesthetic Review: No Changes in Pt Med Stat, Meds/Allgs Chart Reviewed, Consent Obtained/Reviewed and Anes Risks/Benef Reviewed Patient Risk: Intermediate Procedure Risk: Low Anesthetic Plan Anesthetic Plan: GA and Agree w/ Assess. and Plan Disposition: Standard PACU
[2025-01-13] MEDS: Albuterol Sulfate (0.083%) 2.5 MG/3 ML VIAL.NEB INHALE (12:25)
[2025-01-13] MEDS: Lactated Ringers 1,000 ML 100 ML IVCONT (12:29)
--- NOTE | 2025-01-13 12:39 | MHC.SHP ---
Pre-Procedural Eval Section A - 24 Hr Update-Section A only Date of Service: 01/13/25 The patient is an INPATIENT: No Changes since office visit: Yes Patient answered all questions; No Cold of Flu in the past 2 weeks, No New Medical Problems and No Changes in Medication The patient has been examined within 24 hours of the surgical procedure. The History & Physical has been completed within 30 days and I have reviewed it.: Yes Section B - Complete if H&P > 30 days Chief Complaint: Malignant neoplasm of unspecified site of right fe Allergies: Allergies Allergy/AdvReac Type Severity Reaction Status Date / Time insulin detemir Allergy Intermediate Rash Verified 01/10/25 10:27 penicillin V Allergy Intermediate Rash Verified 01/10/25 10:27 acetaminophen (From Tylenol) Allergy Mild ITCH,RASH Verified 01/10/25 10:27 iodine (Iodine) Allergy Mild HIVES Verified 01/10/25 10:27 trimerosal Allergy Intermediate rash Uncoded 01/10/25 10:27 Latex Gloves Allergy Mild Rash Uncoded 01/10/25 10:27 METAL Allergy Mild HIVES Uncoded 01/10/25 10:27 Plan Diagnosis/Plan: Unchanged I have reviewed the history and physical and performed a pertinent physical examination on my patient. No changes have occurred unless specified. Time Spent With Patient Time: Total time managing care of this patient today ____ minutes.
--- NOTE | 2025-01-13 13:48 | P.OP_ITS ---
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 She underwent lumpectomy with sentinel node biopsy. Subsequent pathology revealed positive margin in the posterior margin for DCIS she presents today for wider excision. Operative findings: Large seroma noted in the right breast. Specimen: Right breast lumpectomy wider excision Estimated blood loss: 10 mL Complications: None Procedure details: Patient was brought to the OR and placed in a supine position. After administering light sedation the patient's right breast was prepped with ChloraPrep and draped in a sterile fashion. A surgical time-out was called the consent confirmed. Patient received preoperative antibiotics. Local anesthesia was infiltrated around the previous incision in the upper outer quadrant. An incision was made over the previous incision and carried out through subcutaneous tissue. A large seroma was drained through the incision. The posterior margin was then reexcised beginning medially along the medial margin continuing posterior down to pectoralis muscle and continuing laterally to include the lateral margin. Specimen was passed off the table after marking the lateral margin with a long suture, superior margin with a short suture and posterior margin with a looped suture. Wounds were irrigated with saline solution and suctioned dry. The biopsy cavity was marked with hemoclips. Deep breast tissue was then reapproximated using interrupted 3-0 Polysorb sutures. Dermis was reapproximated using interrupted 3-0 Polysorb sutures. Skin was then closed using a running subcuticular 4-0 Polysorb suture. Steri-Strips, 4 x 4 gauze and Tegaderm were then applied. The patient tolerated the procedure well. Sponge, instrument, and needle counts reported as correct. The patient was transferred to PACU in stable condition.
[2025-01-13 13:55] VITALS: BP 129/35; PULSE 87; RESP 16; TEMP 36.1; O2SAT 97
[2025-01-13 14:00] VITALS: BP 131/52; PULSE 76; RESP 16; O2SAT 94
[2025-01-13 14:15] VITALS: BP 126/58; PULSE 76; RESP 16; O2SAT 94
[2025-01-13 14:26] VITALS: PULSE 77; RESP 16; O2SAT 94
[2025-01-13 14:30] VITALS: BP 127/50; PULSE 77; RESP 16; TEMP 36.1; O2SAT 96
== END 2025-01-13 15:00 | disposition home or self-care (01) ==
PROVIDERS: PCP Internal Medicine; Visit Provider Surgery
PROC: (CPT 19120; principal; 2025-01-13 13:00)
DX: C50.911 Malignant neoplasm of unspecified site of right female breast (principal); N64.89 Other specified disorders of breast; R79.82 Elevated C-reactive protein (CRP); R70.0 Elevated erythrocyte sedimentation rate; M85.80 Other specified disorders of bone density and structure, unspecified site; E11.22 Type 2 diabetes mellitus with diabetic chronic kidney disease; I12.9 Hypertensive chronic kidney disease with stage 1 through stage 4 chronic kidney disease, or unspecified chronic kidney disease; N18.30 Chronic kidney disease, stage 3 unspecified; E11.42 Type 2 diabetes mellitus with diabetic polyneuropathy; E11.65 Type 2 diabetes mellitus with hyperglycemia; R80.9 Proteinuria, unspecified; E78.5 Hyperlipidemia, unspecified; M79.7 Fibromyalgia; J44.9 Chronic obstructive pulmonary disease, unspecified; Z86.73 Personal history of transient ischemic attack (TIA), and cerebral infarction without residual deficits; Z79.4 Long term (current) use of insulin; Z79.85 Long-term (current) use of injectable non-insulin antidiabetic drugs; Z79.82 Long term (current) use of aspirin; Z79.51 Long term (current) use of inhaled steroids; Z79.899 Other long term (current) drug therapy; Z99.89 Dependence on other enabling machines and devices; Z88.1 Allergy status to other antibiotic agents; Z88.8 Allergy status to other drugs, medicaments and biological substances; Z91.040 Latex allergy status; Z91.041 Radiographic dye allergy status; F17.210 Nicotine dependence, cigarettes, uncomplicated; Z98.890 Other specified postprocedural states
CPT/HCPCS: 19301; 88307; 94640; C1889; J2003; J2371; J2704; J3010; J3374

== ENCOUNTER → 2025-01-13 10:41 | Outpatient (BNV) | payer OTHER, SELFPAY | PROVIDERS: PCP Internal Medicine; Visit Provider Surgery | DX: C50.911 Malignant neoplasm of unspecified site of right female breast (principal) | CPT/HCPCS: 19301 ==

== ENCOUNTER 2025-01-21 10:35 | Outpatient (AMB) | payer OTHER, SELFPAY ==
--- OUTSIDE RECORDS SUMMARY | 2024-05-25 09:00 | XMS_ITS ---
Author Organization [facility] Address [address] [place] [phone] Care Team Providers Care Track Greaser Name Role Phone Angelito Vega MD, Juan R Primary Care Provide Caden Jordan [phone] REASON FOR VISIT Patient presents today for a COLON SCREENING Encounters Encounter Location Date Provider Diagnosis [facility] [address] [place] [phone] 05/25/2024 Caden Huffman Plan Of Treatment No Information Progress Notes * MERCEDES BRUSHDOB:[birth year] (69 yo M)Acc No.[id number]:05/25/2024 Progress Notes Patient: MERCEDES PEPE Provider: Rey Huffman MD :1955 A ge:69 Y S ex:Male Date:05/25/2024 Address:[address] [place], [place] [phone] Pcp:Juan R montalvo MD Subjective: * Chief [...] 0 05/25/2024 Generated for Deirdre dominguez/Bobbi/Chitraitting on: 11:32 AM EDT
--- OUTSIDE RECORDS SUMMARY | 2024-09-28 06:10 | XMS_ITS ---
Author Organization [facility] Address [address] [place] [phone] Care Team Providers Care Pipe Inspector Name Role Phone Angelito Vega MD, Juan R Primary Care Provide Caden oJrdan [phone] REASON FOR VISIT patient presents today for COLON SCREENING Encounters Encounter Location Date Provider Diagnosis [facility] [address] [place] [phone] 09/28/2024 Caden Huffman Plan Of Treatment No Information Progress Notes * MERCEDES BRUSHDOB:[birth year] (69 yo M)Acc No.[id number]:09/28/2024 Progress Notes Patient: MERCEDES PEPE Provider: Rey Huffman MD :1955 A ge:69 Y S ex:Male Date:09/28/2024 Address:[address] [place], [place] [phone] Pcp:Juan R montalvo MD Subjective: * Chief [...] * Provider: Rey Huffman MD Date: 0 09/28/2024 Generated for Deirdre dominguez/Bobbi/Chitraitting on: 11:33 AM EDT
--- NOTE | 2025-01-21 10:41 | MHC.OFFVIS ---
Vital Signs 01/21/25 10:50 BMI Reason not done Palliative Care Patient BP 122/70 Blood Pressure Location Lt brachial Position Sitting Intake Visit Reasons: s/p Wider exc rt breast cancer Intake Note: Patient is seen in office for post op assessment post wider excision right breast lumpectomy. Pt c/o:area is very painful due to the re-excision, denies redness, discharge or other concerns, is sched to see Dr Dennis today at noon surgery:01/13/25 Non Profit Job Titles Required: No Accompanied by: Son Allergies insulin detemir Allergy (Intermediate, Verified 01/21/25 10:42) Rash penicillin V Allergy (Intermediate, Verified 01/21/25 10:42) Rash acetaminophen (From Tylenol) Allergy (Mild, Verified 01/21/25 10:42) ITCH,RASH iodine (Iodine) Allergy (Mild, Verified 01/21/25 10:42) HIVES trimerosal Allergy (Intermediate, Uncoded 01/21/25 10:42) rash Latex Gloves Allergy (Mild, Uncoded 01/21/25 10:42) Rash METAL Allergy (Mild, Uncoded 01/21/25 10:42) HIVES Medication List - Last Reconciled 01/21/25 by George Bearden MD albuterol sulfate 90 mcg/actuation 2 puffs inhalation Q6H PRN amlodipine 5 mg PO BEDTIME aspirin 81 mg PO DAILY atenolol 12.5 mg PO BID atorvastatin 40 mg PO BEDTIME blood sugar diagnostic (FreeStyle Lite Strips) four times a day blood-glucose meter (FreeStyle Lite Meter kit) As directed blood-glucose sensor (FreeStyle Crystal 3 Sensor device) apply new sensor every 14 days blood-glucose,wool and pelt grader,cont (FreeStyle Crystal 3 [place]) Use daily to monitor blood glucose levels continuously. [Cane As directed] cyanocobalamin (vitamin B-12) 1,000 mcg PO DAILY docusate sodium 100 mg PO BEDTIME dulaglutide (Trulicity) 4.5 mg subcut MO@0900 fluticasone propion-salmeterol 500-50 mcg/dose (Advair Diskus) 1 inh inhalation BID gabapentin 800 mg PO TID glucose (Dex4 Glucose Quick Dissolve) 16 grams (4 x 4 gram) PO Q15M PRN insulin aspart U-100 (Novolog FlexPen U-100 Insulin aspart) subcutaneously 3 times a day before meals; administer 17 units before breakfast and dinner and 20 units before lunch. insulin degludec (Tresiba FlexTouch U-200 insulin) 52 units (0.26 mL) subcut BEDTIME 30 days insulin syringe-needle U-100 As directed lancets (FreeStyle Lancets) four times a day lidocaine 5% 1 appl topical BID PRN losartan 100 mg PO DAILY montelukast (Singulair) 10 mg PO BEDTIME nicotine 21 mg transdermal DAILY oxycodone 5 mg PO Q6H PRN oxycodone 5 mg PO Q6H PRN pen needle, diabetic (BD Ultra-Fine Janene Pen Needle) As directed four times a day pioglitazone 15 mg PO QAM tramadol 50 mg PO TID PRN umeclidinium 62.5 mcg/actuation (Incruse Ellipta) 1 inh inhalation DAILY zolpidem 10 mg PO BEDTIME PRN HPI Comments Details: 69-year-old female patient with a previous history of a CVA with right-sided weakness, COPD, type 2 diabetes, chronic kidney disease stage 3, and essential hypertension presenting following a recent mammogram and ultrasound performed as a six-month follow-up to a density in the right breast at the 10 o'clock position, 3 cm from the nipple performed on 09/01/2024. This lesion was again demonstrated in the 10 o'clock position approximately 3 cm from the nipple was felt to be either a solid versus complicated cyst and six-month follow-up ultrasound recommended. Also noted however was a focal asymmetry associated with distortion located in the 10 o'clock position approximately 6 cm from the nipple, posterior depth, felt to be suspicious for malignancy on a stereotactic guided core biopsy was recommended. The patient denies any prior history of breast problems or breast surgery. Her family history is negative for breast cancer. Her menarche was the age of 11. She is G5, and had her 1st child to the age of 17. Stereotactic guided core biopsy was performed at [facility] on 09/23/2024. Pathology revealed invasive ductal carcinoma with tubular lobular features, ER positive, NV positive, HER2 equivocal, FISH negative. She underwent right breast lumpectomy with localizer and right axillary sentinel node biopsy on 12/29/2024 and pathology revealed invasive ductal carcinoma with lobular features, grade 2, 18 mm with ductal carcinoma in-situ, nuclear grade 1. Posterior margin was positive for DCIS. Three nodes were negative for metastatic carcinoma. She subsequently returned to the OR for wider excision right breast performed on 01/13/2025. She returns today for wound check. She reports some soreness associated with the incision but generally feels well. Pathology revealed no residual ductal carcinoma in-situ or invasive carcinoma. Previous excision site granulation tissue was noted as well as skeletal muscle with no evidence of tumor. She is scheduled to meet with Dr. Dennis later today. [facility] Medical History History of lumbar puncture (04/28/24) Smoker Environmental allergies Seasonal allergies Cough Walker as ambulation aid Invasive ductal carcinoma of right breast in female CVA (cerebral vascular accident) (2008) Osteopenia Screening examination for infectious disease Insulin dependent type 2 diabetes mellitus Elevated C-reactive protein Elevated sed rate Myalgia, upper arm Knee instability Back pain at L4-L5 level Knee pain, right Knee pain, left UTI (urinary tract infection) Proteinuria Hyperlipidemia Lumbar spondylosis Fibromyalgia Syncope COPD (chronic obstructive pulmonary disease) Depression Asthma Type 2 diabetes mellitus with hyperglycemia, with long-term current use of insulin Type 2 diabetes mellitus with chronic kidney disease Chronic kidney disease, stage 3 unspecified Type 2 diabetes mellitus with diabetic polyneuropathy Essential hypertension Surgical History History of lumpectomy of right breast (12/29/24) H/O transurethral resection of bladder tumor (TURBT) (03/05/22) Hx of ultrasound guided needle biopsy Hx of mammogram Hx of colonoscopy Hx of oral surgery Hx of tubal ligation Family History Father No problems noted. Mother Heart disease CVD (cardiovascular disease) Diabetes Social History Household Members: Family Housing: Apartment Are you a primary manager intensive care unit to a significant other at home: No Do you presently have visiting nurse or other home services: No Alcohol intake: never Comment: counts correct Patient Tobacco Use Status: Current everyday Tobacco user Tobacco use type: Cigarette Cigarette Packs Per Day: 0.5 Cigarettes Per Day: 2 Female Reproductive History Menstrual Age of Menarche: 11 Review of Systems Const All systems reviewed & are unremarkable except as noted in HPI and below Physical Exam Vital Signs: Last Vital Signs BP 122/70 01/21/25 10:50 Const General: no acute distress Nutritional Appearance: well nourished Orientation/consciousness: patient oriented x3 Limitations: wheelchair HEENT Head: Yes normocephalic and Yes atraumatic Chest Other: Right breast with a well-healed incision in the upper outer quadrant without hematoma, seroma, erythema or discharge. Resp Effort & Inspection: normal respiratory effort, no audible wheezes, no cough and no respiratory distress Skin Other: Warm, dry, no rash Neuro Other: Mobility Assessment: 1. 3 meter assessment time (seconds) unable to perform 2. Gait observations: Patient in wheelchair, nonambulatory General: patient oriented x3 Assessment & Plan Assessment & Plan (1) Invasive ductal carcinoma of right breast in female: Code(s): C50.911 - Malignant neoplasm of unspecified site of right female breast Category: Medical (2) Ductal carcinoma in situ of right breast: Code(s): D05.11 - Intraductal carcinoma in situ of right breast Category: Medical Plan 69-year-old female patient diagnosed with right breast ductal carcinoma with lobular features as well as ductal carcinoma in-situ. She underwent right breast lumpectomy with localizer and sentinel node biopsy on 12/29/2024. She subsequently returned to the OR on 01/13/2025 for wider excision due to positive margins for DCIS. Follow up pathology revealed no residual DCIS (pT1c N0(sn)(i-)). I reviewed the pathology results with the patient and her son. No further surgical intervention is required at this time. She will follow up with Dr. Dennis to discuss possible adjuvant treatments. I have asked her to return approximately 1 month for wound examination. She should call sooner for any new concerns. Coding Level of Care Code Global (35219) Diagnoses Invasive ductal carcinoma of right breast in female C50.911 Ductal carcinoma in situ of right breast D05.11
[2025-01-21 10:50] VITALS: BP 122/70
--- OUTSIDE RECORDS SUMMARY | 2025-01-21 11:32 | XMS_ITS | Encounter Summary ---
Author Organization [employer] Address [address] [facility] 7t [place] [address] Care Team Providers Care Water Treatment Plant Mechanic Name Role Phone Juan R Blount MD Primary Care Provide r Reason for Visit * Reason Comments Med Refill Encounter Details Date Type Department Care Team ([facility] st Contact Info) Description 01/18/2025 Refill [facility] [address] [place], [place] [phone] Juan R Blount MD [address] [place], [place] [phone] Type 2 diabetes mellitus with hyperglycemia, with long-term current use of insulin ([facility]) Social History Tobacco Use Types [...] 1:00 PM EDT Office Visit [facility] [address] [place] [address] Juan R Blount MD [address] [place] [address] documented as of this encounter Visit Diagnoses Diagnosis Type 2 diabetes mellitus with hyperglycemia, with long-term current use of insulin (HCC) documented in this encounter Additional Health Concerns Assessment Noted Time PHQ-9 Depression Total Score: 3 01/15/20 24 1:38 PM EDT documented as of this encounter Care Teams Water Treatment Plant Mechanic Relationship Specialty Start Date End Date Juan R Blount MD [address] [place] [address] PCP - General Internal Medicine 12/09/13 [facility] End[facility]in[facility] 08/23/24 documented as of this encounter
--- OUTSIDE RECORDS SUMMARY | 2025-01-21 11:32 | XMS_ITS | Encounter Summary ---
Author Organization [employer] Address [address] [facility] [address] [place] [address] Care Team Providers Care Perishable Fruit Inspector Name Role Phone Juan R Blount MD Primary Care Provide r Reason for Visit * Reason Comments Med Refill Encounter Details Date Type Department Care Team ([facility] st Contact Info) Description 10/23/2023 Refill [facility] CHC MED & PEDS [address] [place], [place] [phone] Juan R Blount MD [address] [place] [address] Type 2 diabetes mellitus with hyperglycemia, with long-term current use of insulin ([facility]) Social History Tobacco Use Types [...] 1:00 PM EDT Office Visit [facility] MEDICINE [address] [place] [address] Juan R Blount MD [address] [place] [address] documented as of this encounter Visit Diagnoses Diagnosis Type 2 diabetes mellitus with hyperglycemia, with long-term current use of insulin (HCC) documented in this encounter Additional Health Concerns Assessment Noted Time PHQ-9 Depression Total Score: 8 11/20/19 23 9:41 AM EDT documented as of this encounter Care Teams Perishable Fruit Inspector Relationship Specialty Start Date End Date Juan R Blount MD [address] [place] [address] PCP - General Internal Medicine 12/09/13 [facility] 08/23/24 documented as of this encounter
--- OUTSIDE RECORDS SUMMARY | 2025-01-21 11:32 | XMS_ITS | Encounter Summary ---
Author Organization [employer] Address [address] [facility] 7t [place] [address] Care Team Providers Care Underwear Hemmer Name Role Phone Juan R Blount MD Primary Care Provide r Reason for Visit * Reason Comments Pre-visit Planning (Unable to reach for PVP screening, LVM) to be completed in office Encounter Details Date Type Department Care Team ([facility] Contact Info) Description 01/18/2025 Patient Outreach [facility]ICINE [address] [place], [place] [phone] Juan R Blount MD [address] [place] [address] Pre-visit Planning ((Unable to reach for PVP screening, LVM) to be completed in office ) Social History Tobacco Use Types Packs/Day Years [...] AM EDT documented as of this encounter Progress Notes * Maryjane Osorio - 01/18/2025 1:24 PM EDT CC Maryjane. Placed outbound call to patient to complete pre-visit planning. No answer at this time. Patient name and were not confirmed. CC left voicemail requesting return call. Direct contact information provided. documented in this encounter Plan of Treatment Upcoming Encounters Date Type Department Care Team (Late st Contact Info) Description 01/25/2025 1:00 PM EDT Office Visit [facility]INE [address] [place] [address] Juan R Blount MD [address] [place] [address] documented as of this encounter Visit Diagnoses Not on filedocumented in this encounter Additional Health Concerns Assessment Noted Time PHQ-9 Depression Total Score: 3 01/15/20 24 1:38 PM EDT documented as of this encounter Care Teams Underwear Hemmer Relationship Specialty Start Date End Date Juan R Blount MD [address] [place] [address] PCP - General Internal Medicine 12/09/13 [facility] Endocrinology 08/23/24 documented as of this encounter
--- OUTSIDE RECORDS SUMMARY | 2025-01-21 11:32 | XMS_ITS | Encounter Summary ---
Author Organization [employer] Address [address] [facility] 7t [place] [address] Care Team Providers Care Parking Lot Spotter Name Role Phone Juan R Blount MD Primary Care Provide r Reason for Visit * Reason Comments Med Refill Encounter Details Date Type Department Care Team ([facility] st Contact Info) Description 06/27/2023 Refill [facility] CHC MED & PEDS [address] [place] [address] Aggie Guan MD [address] [place] [address] Primary insomnia Social History Tobacco Use Types [...] Description 01/25/2025 1:00 PM EDT Office Visit [facility] MEDICINE [address] [place] [address] Juan R Blount MD [address] [place] [address] documented as of this encounter Visit Diagnoses Diagnosis Primary insomnia Persistent disorder of initiating or maintaining sleep documented in this encounter Additional Health Concerns Assessment Noted Time PHQ-9 Depression Total Score: 8 11/20/19 23 9:41 AM EDT documented as of this encounter Care Teams Parking Lot Spotter Relationship Specialty Start Date End Date Juan R Blount MD [address] [place] [address] PCP - General Internal Medicine 12/09/13 [facility] Endocrin[facility] 08/23/24 documented as of this encounter
--- OUTSIDE RECORDS SUMMARY | 2025-01-21 11:32 | XMS_ITS | Encounter Summary ---
Author Organization [email or web address] Address [address] [facility] 7t [place] [address] Care Team Providers Care Security Technician Name Role Phone Juan R Blount MD Primary Care Provide r Reason for Visit * Reason Comments Med Refill Encounter Details Date Type Department Care Team ([facility] st Contact Info) Description 01/13/2025 Refill [facility]ICINE [address] [place], [place] [phone] Juan R Blount MD [address] [place], [place] [phone] Type 2 diabetes mellitus with hyperglycemia, with long-term current use of insulin ([facility]) Social History Tobacco Use Types Packs/Day [...] 1:00 PM EDT Office Visit [facility] [address] [place] [address] Juan R Blount MD [address] [place] [address] documented as of this encounter Visit Diagnoses Diagnosis Type 2 diabetes mellitus with hyperglycemia, with long-term current use of insulin (HCC) documented in this encounter Additional Health Concerns Assessment Noted Time PHQ-9 Depression Total Score: 3 01/15/20 24 1:38 PM EDT documented as of this encounter Care Teams Security Technician Relationship Specialty Start Date End Date Juan R Blount MD [address] [place] [address] PCP - General Internal Medicine 12/09/13 [facility] Endocrin[facility] 08/23/24 documented as of this encounter
--- OUTSIDE RECORDS SUMMARY | 2025-01-21 11:32 | XMS_ITS | Encounter Summary ---
Author Organization [email or web address] Address [address] [facility] [address] [place] [address] Care Team Providers Care Freight Coordinator Name Role Phone Juan R Blount MD Primary Care Provide r Reason for Visit * Reason Comments Med Refill Encounter Details Date Type Department Care Team ([facility] st Contact Info) Description 04/16/2024 Refill [facility] CHC MED & PEDS [address] [place] [address] Aggie Melendez MD [address] [place] [address] Primary insomnia Social History Tobacco Use Types [...] 1:00 PM EDT Office Visit [facility] MEDICINE [address] [place] [address] Juan R Blount MD [address] [place] [address] documented as of this encounter Visit Diagnoses Diagnosis Primary insomnia Persistent disorder of initiating or maintaining sleep documented in this encounter Additional Health Concerns Assessment Noted Time PHQ-9 Depression Total Score: 3 01/15/20 24 1:38 PM EDT documented as of this encounter Care Teams Freight Coordinator Relationship Specialty Start Date End Date Juan R Blount MD [address] [place] [address] PCP - General Internal Medicine 12/09/13 [facility] Endocrinology 08/23/24 documented as of this encounter
--- OUTSIDE RECORDS SUMMARY | 2025-01-21 11:32 | XMS_ITS | Encounter Summary ---
Author Organization [employer] Address [address] [facility] [address]t [place] [address] Care Team Providers Care Insulation Worker Interior Surface Name Role Phone Juan R Blount MD Primary Care Provide r Encounter Details Date Type Department Care Team ([facility] Contact Info) Description 01/13/2025 Orders Only GENERIC EXTERNAL DATA DEPARTMENT Provider, Generic External Data Social History Tobacco Use Types Packs/Day Years [...] Description 01/25/2025 1:00 PM EDT Office Visit [facility]ICINE [address] [place], [place] [phone] Juan R Blount MD [address] [place] [address] documented as of this encounter Procedures Procedure Name Priority Date/Time Associated Diagnosis Comments GROSS AND MICROSCOPIC LEVEL 5 Routine 01/13/2025 1:28 PM EDT documented in this encounter Results * Gross and Microscopic Level 5 (01/13/2025 1:28 PM EDT) 01/13/2025 1:28 PM EDT 01/13/2025 2:55 PM EDT [facility] - 01/18/2025 10:35 AM EDT ----- ------- Name: Torrie Sy Age/Sex: 69/F : 1955 Unit#: [id number] Attend Dr: George Bearden MD Re01/13/25 Status: DEP [facility] Location: HO.SSS Disch: ----- ------- SPEC : [id number] RECD: 01/13/25 STATUS: AMY WEBSTER NUM: [id number] HAILEY: 01/13/[address] [facility] [address]: George Bearden MD ENTERED: 01/13/25 SP TYPE: Surgical OTHR DR: Juan R Bey MD ORDERED: Gross Micro L5 Diagnosis Breast, right, posterior margin, re-excision: -No residual ductal carcinoma in situ or invasive carcinoma identified. -Fibrocystic change with columnar cell change and hyperplasia. -Previous excision site changes with granulation tissue. -Skeletal muscle with no evidence of tumor. Clinical History Malignant neoplasm of unspecified site of right female breast Microscopic Description Microscopic sections reviewed. Material Received Right breast posterior margin Gross Description Received in formalin is an 8.0 x 5.0 x 4.3 cm portion of right breast tissue, designated as posterior margin, received oriented to include long suture designating lateral, short suture designating superior and loop designating posterior. The anterior surface is disrupted exposing an underlying zealya membranous lined cavity, consistent with previous excision site. The specimen is inked as follows: superior-blue, inferior-green, lateral-yellow, medial- orange, posterior-red; the anterior disrupted surface is left uninked. Sectioning reveals yellow lobulated adipose tissue with scattered fat necrosis, without evidence of definitive lesion. Layaway Clerk sections are submitted sequentially from superior to inferior in cassettes A1 -10, to include A1 superior margin perpendicular and A10 inferior margin perpendicular. (DTL) This case was reviewed intradepartmentally. IHC S/NG Disclaimer NOTE: Unless otherwise stated, all tissue is formalin-fixed and paraffin-embedded. Some or all of the immunohistochemical tests reported herein may have been developed and their performance characteristics determined by [facility]. They have not been cleared [...] Torrie Sy Age/Sex: 69/F : 1955 Unit#: [id number] Attend Dr: George Bearden MD Re01/13/25 Status: [facility] Location: [facility] Disch: ----- ------- SPEC : [id number] RECD: 01/13/25-5697 STATUS: AMY WEBSTER NUM: [id number] HAILEY: 01/13/25-[address] [facility] [address]: George Bearden MD ENTERED: 01/13/25-1989 SP TYPE: Surgical OTHR DR: Juan R Bey MD ORDERED: Gross Micro L5 Copies To: Juan R Bey MD [address] [address] George Bearden MD [facility] General Surgeons [address] [place] [phone] ----- ------- Signed (signature on file) Anna Mayank 01/18/25 1035 ----- ------- END OF REPORT us Generic External Data Provider LAB BLOOD ORDERAB LES Final Result [facility] [address] [place] [phone] documented in this encounter Visit Diagnoses Not on filedocumented in this encounter Additional Health Concerns Assessment Noted Time PHQ-9 Depression Total Score: 3 01/15/20 24 1:38 PM EDT documented as of this encounter Care Teams Insulation Worker Interior Surface Relationship Specialty Start Date End Date Juan R Blount MD [address] [place] [phone] PCP - General Internal Medicine 12/09/13 [facility] Endocrinology 08/23/24 documented as of this encounter
--- OUTSIDE RECORDS SUMMARY | 2025-01-21 11:32 | XMS_ITS | Encounter Summary ---
Author Organization [employer] Address [address] [facility] 7t [place] [address] Care Team Providers Care Dishroom Attendant Name Role Phone Juan R Blount MD Primary Care Provide r Encounter Details Date Type Department Care Team ([facility] Contact Info) Description 01/11/2025 Orders Only GENERIC EXTERNAL DATA DEPARTMENT Provider, [...] Description 01/25/2025 1:00 PM EDT Office Visit [facility] [address] [place], [place] [phone] Juan R Blount MD [address] [place], [place] [phone] documented as of this encounter Procedures Procedure Name Priority Date/Time Associated Diagnosis Comments PATHOLOGY REPORT Routine 01/11/2025 3:53 PM EDT documented in this encounter Results * Pathology Report (01/11/2025 3:53 PM EDT) 01/11/2025 3:53 PM EDT 01/13/2025 8:35 AM EDT [facility] LABS - 01/17/2025 2:02 PM EDT ----- ------- Name: Torrie Sy Age/Sex: 69/F : 1955 Unit#: [id number] Attend Dr: George Bearden MD Re12/27/24 Status: DEP REF Location: HO.MAMMO Disch: ----- ------- SPEC : [id number] RECD: 01/13/25 STATUS: AMY WEBSTER NUM: [id number] HAILEY: 01/11/[address] [facility] [address]: George Bearden MD ENTERED: 01/13/25 SP TYPE: Surgical OTHR DR: Juan R Bey MD ORDERED: Consult. refer. Diagnosis A. Breast, right, asymmetry with calcifications, 9:00, 7 cm from nipple, core biopsy (consult slides from [facility], Surgical Pathology Service #[id number]): -Invasive ductal carcinoma with lobular features, MSBR grade 1. -Focus suspicious for ductal carcinoma in situ. B. Breast, right, asymmetry tissue, 9:00, 7 cm from nipple, core biopsy (consult slides from [facility], Surgical Pathology Service #[id number]): -Invasive ductal carcinoma with lobular features, MSBR grade 1. -Ductal carcinoma in situ, nuclear grade 1, with focal calcifications. Synoptic report Procedure: Core biopsy Specimen laterality: Right Histologic type: Invasive ductal carcinoma with lobular features. Histologic grade (Chadron/MSBR histologic score): 1 - Glandular/tubular differentiation: Score: 2 - Nuclear pleomorphism: Score: 2 - Mitotic rate: Score: 1 Tumor size: Largest linear diameter: 14 mm Ductal carcinoma in situ: Present Lymphatic and/or vascular invasion: Not identified Microcalcifications: Present (B) Immunohistochemical stains on invasive tumor as follows: -Estrogen Receptor: POSITIVE (% Positive cells: 95, average intensity: Strong) -Progesterone Receptor: POSITIVE (% Positive cells: 25, average intensity: Moderate) -HER2: EQUIVOCAL ( 2 +) (% Positive cells: 85, average intensity: weak- moderate, complete and incomplete) -E-cadherin and B-catenin: Positive membranous staining, consistent with ductal origin -Controls (external and internal): Appropriate -HER2 FISH report: NEGATIVE Clinical History Abnormal mammogram, 1.0 cm irregular high density focal asymmetry with probable distortion No history fo surgery, but history of FAUS, mammo reported possible fat necrosis 9 o'clock 7 cm FN, right Some calcifications on specimen radiograph CONTINUED ON NEXT PAGE ----- ------- Name: Torrie Sy Age/Sex: 69[facility]F [facility] 1955 [id number] Unit#: [id number] Attend Dr: George Bearden MD Re12/27/24 Status: DEP REF Location: HO.MAMMO Disch: ----- ------- SPEC : [id number] RECD: 01/13/25 STATUS: IDALIASaad ELEANOR NUM: [id number] HAILEY: 01/11/[address] [facility] [address]: George Bearden MD ENTERED: 01/13/25 SP TYPE: Surgical OTHR DR: Juan R Bey MD ORDERED: Consult. refer. Microscopic Description Microscopic sections on A and B show an infiltration of tubules, cords and trabeculae of tumor cells within fibrous tissue and adipose tissue. The tumor cells show moderate vesicular cytoplasm with large intracytoplasmic vacuoles and enlarged irregular nuclei with nucleoli. Focal intraductal proliferations of similar cells are present in B with calcifications, and focally in A without calcifications. Material Received 9 slides for consult Gross Description Received for consultation from [facility], [place], [place] are 9 slides labeled with the patient's name, date of , and [id number] (4 H E (A1-1, A1-3, B1- 1, B1-3) and 5 IHC (B1-4 ER, B1-5 VT, B1-6 ZYS2HOV, B1-7 E-CAD, B1-8 B-CATN)). Also received is a copy of the pathology report with a collection date of 09/23/2024. [facility] Note: ER and VT immunostains are scored as Positive (> or = 10% of tumor cell nuclei), Low positive (1-10% of tumor cell nuclei) or Negative (< 1% of tumor cell nuclei). Regarding HER2 immunoassays, the Positive category correlates [...] in less than 10% of the tumor. See [facility] report for staining method. IHC S/NG Disclaimer NOTE: Unless otherwise stated, all tissue is formalin-fixed and paraffin-embedded. Some or all of the immunohistochemical tests reported herein may have been developed and their performance characteristics determined by [facility]. They have not been cleared or approved by the U.S. Food and Drug Administration (FDA). However, the FDA has determined that such clearance or approval is not necessary. This laboratory is certified under the Clinical Laboratory Improvement Amendments of 1988 (CLIA) as qualified to perform high complexity clinical laboratory testing. CONTINUED ON NEXT PAGE ----- ------- Name: Torrie yS Age/Sex: 69/F : 1955 Unit#: [id number] Attend Dr: George Bearden MD Re12/27/24 Status: DEP REF Location: [place] Disch: ----- ------- SPEC : [id number] RECD: 01/13/25 STATUS: AMY WEBSTER NUM: [id number] HAILEY: 01/11/[address] [facility] [address]: George Bearden MD ENTERED: 01/13/25 SP TYPE: Surgical OTHR DR: Juan R Bey MD ORDERED: Consult. refer. Copies To: Juan R Bey MD [address] [address] George Bearden MD [facility] [address] [place] [address] [phone] ----- ------- Signed (signature on file) Anna Talley 01/17/25 1402 ----- ------- END OF REPORT us Generic External Data Provider HISTORICAL/NON OR DERABLE LABS Final Result [facility] [address] [place] [address] [phone] documented in this encounter Visit Diagnoses Not on filedocumented in this encounter Additional Health Concerns Assessment Noted Time PHQ-9 Depression Total Score: 3 01/15/20 24 1:38 PM EDT documented as of this encounter Care Teams Dishroom Attendant Relationship Specialty Start Date End Date Juan R Blount MD [address] [place] [phone] PCP - General Internal Medicine 12/09/13 Shasta Sutton Endocrinology 08/23/24 documented as of this encounter
--- OUTSIDE RECORDS SUMMARY | 2025-01-21 11:32 | XMS_ITS | Encounter Summary ---
Author Organization [employer] Address 75 [facility] 7t [place] [address] Care Team Providers Care Aerial Advertiser Name Role Phone Juan R Blount MD Primary Care Provide r Reason for Visit * Reason Comments Med Refill Encounter Details Date Type Department Care Team ([facility] st Contact Info) Description 01/15/2025 Refill [facility] [address] [place], [place] [phone] Juan R Blount MD [address] [place], [place] [phone] Wheeze Social History Tobacco Use Types Packs/Day [...] Upcoming Encounters Date Type Department Care Team ([facility] st Contact Info) Description 01/25/2025 1:00 PM EDT Office Visit [facility] [address] [place] [address] Juan R Blount MD [address] [place] [address] documented as of this encounter Visit Diagnoses Diagnosis Wheeze Wheezing documented in this encounter Additional Health Concerns Assessment Noted Time PHQ-9 Depression Total Score: 3 01/15/20 24 1:38 PM EDT documented as of this encounter Care Teams Aerial Advertiser Relationship Specialty Start Date End Date Juan R Blount MD [address] [place] [phone] PCP - General Internal Medicine 12/09/13 Sahsta Sutton Endocrinology 08/23/24 documented as of this encounter
--- OUTSIDE RECORDS SUMMARY | 2025-01-21 11:32 | XMS_ITS | Clinical Summary ---
Author Organization [facility] Address [address] [place] [address] Phone Care Team Providers Care Studio Hand Name Role Phone Juan R Bey MD [...] this topic Medical Devices Implanted Type Area Can Filling And Closing Machine Tender Device Identifier Shelf Expiration Date Model / Serial / Lot Marker Breast Biopsy 10g Flexible Ti Open Coil Hydromark - [id number] Implanted:Qty: 1 on 09/23/2024 by Christos Warner MD at [facility] Imaging Implants Right: Breast [employer] [id number] 03/10/2027 4010-05- 10-T3 / / [id number] Procedures Procedure Name Priority Date/Time Associated [...] Signed Date: 09/27/2024 14:26 ET Workstation ID: [id number] Transcribed By: Self Edit Transcribed Date: 09/27/2024 [...] Pathology pending for the right breast. Location: [address] [place], [address] -------- FINAL REPORT -------- Dictated By: Christos Warner Dictated Date: 09/23/2024 13:54 ET Assigned Physician: Christos Warner Reviewed and Electronically Signed By: Christos Warner Signed Date: 09/23/2024 15:10 ET Workstation ID: [id number] Transcribed By: Self Edit Transcribed Date: 09/23/2024 [...] ID:[id number] Group ID:[id number] Type:Not on file Address: [facility] [address] [place] [address] Care Teams Studio Hand Relationship Specialty Start Date End Date Juan R Bey MD [address] [place] [address] PCP - General Internal Medicine 09/03/24
--- OUTSIDE RECORDS SUMMARY | 2025-01-21 11:32 | XMS_ITS | Encounter Summary ---
Author Organization [employer] Address [address] [facility] [address] 7t [place] [address] Care Team Providers Care Salesperson Women'S Dresses Name Role Phone Juan R Blount MD Primary Care Provide r Reason for Visit * Reason Comments Med Refill Encounter Details Date Type Department Care Team ([facility] st Contact Info) Description 06/17/2024 Refill [facility] MEDICINE [address] [place], [place] [phone] Name, MD Fco [address] [place] [address] Mixed hyperlipidemia Social History Tobacco Use Types [...] Description 01/25/2025 1:00 PM EDT Office Visit [facility]INE [address] [place] [address] Juan R Blount MD [address] [place] [address] documented as of this encounter Visit Diagnoses Diagnosis Mixed hyperlipidemia documented in this encounter Additional Health Concerns Assessment Noted Time PHQ-9 Depression Total Score: 3 01/15/20 24 1:38 PM EDT documented as of this encounter Care Teams Salesperson Women'S Dresses Relationship Specialty Start Date End Date Juan R Blount MD [address] [place] [address] PCP - General Internal Medicine 12/09/13 Shasta Sutton Endocrinology 08/23/24 documented as of this encounter
--- OUTSIDE RECORDS SUMMARY | 2025-01-21 11:32 | XMS_ITS | Encounter Summary ---
Author Organization [employer] Address [address] [facility] [address] 7t [place] [address] Care Team Providers Care Front Desk Coordinator Name Role Phone Juan R Blount MD Primary Care Provide r Reason for Visit * Reason Comments Med Refill Encounter Details Date Type Department Care Team ([facility] st Contact Info) Description 08/26/2024 Refill [facility] MED & PEDS [address] [place], [place] [phone] Juan R Blount MD [address] [place] [address] Primary insomnia Social History Tobacco Use Types [...] is your housing situation today? I have oilver romero 01/13/[address] you [...] EDT Office Visit [facility] 230 [place] [address] Juan R Blount MD [address] [place] [address] documented as of this encounter Visit Diagnoses Diagnosis Primary insomnia Persistent disorder of initiating or maintaining sleep documented in this encounter Additional Health Concerns Assessment Noted Time PHQ-9 Depression Total Score: 3 01/15/20 24 1:38 PM EDT documented as of this encounter Care Teams Front Desk Coordinator Relationship Specialty Start Date End Date Juan R Blount MD [address] [place] [address] PCP - General Internal Medicine 12/09/13 Shasta Sutton Endocrinology 08/23/24 documented as of this encounter
--- OUTSIDE RECORDS SUMMARY | 2025-01-21 11:32 | XMS_ITS | Encounter Summary ---
Author Organization [employer] Address [address] [facility] [address] 7t [place] [address] Care Team Providers Care Deckhand Clam Dredge Name Role Phone Juan R Blount MD Primary Care Provide r Reason for Visit * Reason Onset Date Comments Med Refill 01/20/2025 Encounter Details Date Type Department Care Team (Late st Contact Info) Description 01/20/2025 Refill [facility] MED [facility] PEDS [address] [place] [address] Juan R Blount MD [address] [place] [address] Primary insomnia Social History Tobacco Use Types [...] encounter Miscellaneous Notes * Telephone Encounter - Luz Marina Zaragoza LPN - 01/20/2025 11:05 AM EDT PEDIATRIC PHYSICIAN ASSISTANT checked on 01/20/25. Last seen 12/23/24. documented in this encounter Plan of Treatment Upcoming Encounters Date Type Department Care Team (Late st Contact Info) Description 01/25/2025 1:00 PM EDT Office Visit [facility] [address] [place] [address] Juan R Blount MD [address] [place] [address] documented as of this encounter Visit Diagnoses Diagnosis Primary insomnia Persistent disorder of initiating or maintaining sleep documented in this encounter Additional Health Concerns Assessment Noted Time PHQ-9 Depression Total Score: 3 01/15/20 24 1:38 PM EDT documented as of this encounter Care Teams Deckhand Clam Dredge Relationship Specialty Start Date End Date Juan R Blount MD [address] [place] [address] PCP - General Internal Medicine 12/09/13 Shasta Sutton Endocrinology 08/23/24 documented as of this encounter
--- OUTSIDE RECORDS SUMMARY | 2025-01-21 11:32 | XMS_ITS | Encounter Summary ---
Author Organization [employer] Address [address] [facility] 7t [place] [address] Care Team Providers Care Bulb Planter Name Role Phone Juan R Blount MD Primary Care Provide r Encounter Details Date Type Department Care Team (Late Contact Info) Description 05/16/2022 Orders Only [facility] MED & PEDS [address] [place], [place] [phone] Luz Marina Zaragoza LPN Social History Tobacco [...] Visit [facility] MEDICINE 230 [place], [place] [phone] Juan R Blount MD [address] [place], [place] [phone] documented as of this encounter Procedures Procedure Name Priority Date/Time Associated Diagnosis Comments BI MAMMOGRAM DIAGNOSTIC TOMOSYNTHESIS LEFT Routine 05/28/2022 2:58 PM EST documented in this encounter Results * BI Mammogram Diagnostic Tomosynthesis Left (05/28/2022 2:58 PM EST) Anatomical Region Laterality Modality Breast Left Mammography 05/28/2022 2:58 PM EST Narrative 05/28/2022 4:46 PM EST [facility] [address] [place], [place] [address] Mammography Report Signed Patient: Torrie Sy MR#: [id number] : 1955 Acct:[id number] Age/Sex: 67 / F ADM Date: 05/28/22 Loc: HO.WALLYO Attending Dr: Juan R Bey MD Ordering Physician: Juan R Bey MD Results: 3.6MProbably Benign Finding - Short 6 M F/U Suggested Date of Service: 05/28/22 Follow Up: 6 Month F/U Procedure(s): MM tomosynthesis diagnostic LT Accession Number(s): [id number] cc: Juan R Bey MD EXAMINATION: MM [...] in OV> 05/28/22 1643 DD/ 1458 TD/TT: Windrower Operator: SANTOS Procedure Note Donotuseinterpreter, Image - 05/28/2022 [facility] [address] [place] [address] Mammography Report Signed Patient: Torrie SyMR#: [id number] : 5Acct:[id number] Age/Sex: 67 / FADM Date: 05/28/22 Loc: HO.WALLYO Attending Dr: Juan R Bey MD Ordering Physician: Juan R Bey MD Results: 3.6MProbably Benign Finding - Short 6 M F/U Suggested Date of Service: 05/28/22Follow Up: 6 Month F/U Procedure(s): MM tomosynthesis diagnostic LT Accession Number(s): [id number] cc: Juan R Bey MD EXAMINATION: MM [...] in OV> 05/28/22 1643 DD/ 1458 TD/TT: Windrower Operator: SANTOS [facility] External Provider IMG BI PROCEDURES Edited Result - Final documented in this encounter Visit Diagnoses Not on filedocumented in this encounter Care Teams Bulb Planter Relationship Specialty Start Date End Date Juan R Blount MD [address] [place] [address] PCP - General Internal Medicine 12/09/13 Shasta Sutton Endocrinology 08/23/24 documented as of this encounter
--- OUTSIDE RECORDS SUMMARY | 2025-01-21 11:32 | XMS_ITS | Encounter Summary ---
Author Organization [employer] Address [address] [facility] 7t [place] [address] Care Team Providers Care Marketer Name Role Phone Juan R Blount MD Primary Care Provide r Reason for Visit * Reason Onset Date Comments [facility] QUESTIONS 12/02/2024 Encounter Details Date Type Department Care Team ([facility] st Contact Info) Description 12/02/2024 Telephone [facility] MEDICINE [address] [place], [place] [phone] Juan R Blount MD 230 [place], [place] [phone] GSSS QUESTIONS Social History Tobacco Use Types [...] 12/02/2024 9:21 AM EDT LISA keller with [facility] Services requesting a call back [...] Description 01/25/2025 1:00 PM EDT Office Visit [facility] MEDICINE [address] [place] [address] Juan R Blount MD 230 [place], [place] [phone] documented as of this encounter Visit Diagnoses Not on filedocumented in this encounter Additional Health Concerns Assessment Noted Time PHQ-9 Depression Total Score: 3 01/15/20 24 1:38 PM EDT documented as of this encounter Care Teams Marketer Relationship Specialty Start Date End Date Juan R Blount MD [address] [place] [address] PCP - General Internal Medicine 12/09/13 Shasta Sutton Endocrinology 08/23/24 documented as of this encounter
--- OUTSIDE RECORDS SUMMARY | 2025-01-21 11:32 | XMS_ITS | Encounter Summary ---
Author Organization [employer] Address [address] [facility] [address] [place] [address] Care Team Providers Care Greenhouse Assistant Name Role Phone Juan R Blount MD Primary Care Provide r Encounter Details Date Type Department Care Team (Late st Contact Info) Description 05/16/2023 Abstract [facility] [address] [place] [address] Juan R Blount MD [address] [place] [address] Social History Tobacco Use Types [...] Description 01/25/2025 1:00 PM EDT Office Visit [facility] [address] [place] [address] Juan R Blount MD [address] [place] [address] documented as of this encounter Visit Diagnoses Not on filedocumented in this encounter Additional Health Concerns Assessment Noted Time PHQ-9 Depression Total Score: 8 11/20/19 23 9:41 AM EDT documented as of this encounter Care Teams Greenhouse Assistant Relationship Specialty Start Date End Date Juan R Blount MD [address] [place] [address] PCP - General Internal Medicine 12/09/13 Shasta Sutton Endocrinology 08/23/24 documented as of this encounter
--- OUTSIDE RECORDS SUMMARY | 2025-01-21 11:33 | XMS_ITS | Encounter Summary ---
Author Organization [employer] Address [address] [facility] 7t [place] [address] Care Team Providers Care Performance Improvement Manager Name Role Phone Juan R Blount MD Primary Care Provide r Reason for Visit * Reason Comments Med Refill Encounter Details Date Type Department Care Team ([facility] st Contact Info) Description 06/27/2023 Refill [facility] MED & PEDS [address] [place] [address] Aggie Guan MD [address] [place] [address] Primary insomnia Social History Tobacco Use Types [...] 1:00 PM EDT Office Visit [facility] MEDICINE [address] [place] [address] Juan R Blount MD [address] [place] [address] documented as of this encounter Visit Diagnoses Diagnosis Primary insomnia Persistent disorder of initiating or maintaining sleep documented in this encounter Additional Health Concerns Assessment Noted Time PHQ-9 Depression Total Score: 8 11/20/19 23 9:41 AM EDT documented as of this encounter Care Teams Performance Improvement Manager Relationship Specialty Start Date End Date Juan R Blount MD [address] [place] [address] PCP - General Internal Medicine 12/09/13 Shasta Sutton Endocrinology 08/23/24 documented as of this encounter
--- OUTSIDE RECORDS SUMMARY | 2025-01-21 11:33 | XMS_ITS | Encounter Summary ---
Author Organization [employer] Address [address] [facility] [address] 7[address] [place] [address] Care Team Providers Care Program Control Analyst Name Role Phone Juan R Blount MD Primary Care Provide r Reason for Visit * Reason Comments Med Refill Encounter Details Date Type Department Care Team ([facility] st Contact Info) Description 02/04/2024 Refill [facility] [address] [place], [place] [phone] Lewis Carter MD [address] [place], [place] [phone] Social History Tobacco Use Types Packs/Day Years [...] Upcoming Encounters Date Type Department Care Team ([facility] st Contact Info) Description 01/25/2025 1:00 PM EDT Office Visit [facility] [address] [place] [address] Juan R Blount MD [address] [place] [address] documented as of this encounter Visit Diagnoses Not on filedocumented in this encounter Additional Health Concerns Assessment Noted Time PHQ-9 Depression Total Score: 3 01/15/20 24 1:38 PM EDT documented as of this encounter Care Teams Program Control Analyst Relationship Specialty Start Date End Date Juan R Blount MD [address] [place] [address] PCP - General Internal Medicine 12/09/13 Shasta Sutton Endocrinology 08/23/24 documented as of this encounter
--- OUTSIDE RECORDS SUMMARY | 2025-01-21 11:33 | XMS_ITS | Encounter Summary ---
Author Organization [employer] Address [address] [facility] 7t [place] [address] Care Team Providers Care Field Cane Scaler Helper Name Role Phone Juan R Blount MD Primary Care Provide r Encounter Details Date Type Department Care Team (Late Contact Info) Description 10/29/2022 Abstract [facility] MEDICINE [address] [place], [place] [phone] Juan R lBount MD [address] [place] [address] [phone] Social History Tobacco Use Types Packs/Day Years [...] 1:00 PM EDT Office Visit [facility] MEDICINE [address] [place], [place] [phone] Juan R Blount MD [address] [place], [place] [phone] documented as of this encounter Visit Diagnoses Not on filedocumented in this encounter Care Teams Field Cane Scaler Helper Relationship Specialty Start Date End Date Juan R Blount MD [address] [place] [address] [phone] PCP - General Internal Medicine 12/09/13 Shasta Sutton Endocrinology 08/23/24 documented as of this encounter
--- OUTSIDE RECORDS SUMMARY | 2025-01-21 11:33 | XMS_ITS | Encounter Summary ---
Author Organization [employer] Address [address] [facility] 7t [place] [address] Care Team Providers Care Magnetic Testing Technician Name Role Phone Juan R Blount MD Primary Care Provide r Encounter Details Date Type Department Care Team (Late Contact Info) Description 05/29/2022 Orders Only [facility] MED[facility] [address] [place], [place] [phone] Cyndi Sy LPN Social History Tobacco Use [...] 1:00 PM EDT Office Visit [facility] MEDICINE [address] [place] [address] [phone] Juan R Blount MD [address] [place] [address] documented as of this encounter Visit Diagnoses Not on filedocumented in this encounter Care Teams Magnetic Testing Technician Relationship Specialty Start Date End Date Juan R Blount MD [address] [place] [address] PCP - General Internal Medicine 12/09/13 Shasta Sutton Endocrinology 08/23/24 documented as of this encounter
--- OUTSIDE RECORDS SUMMARY | 2025-01-21 11:33 | XMS_ITS | Encounter Summary ---
Author Organization [employer] Address [address] [facility] 7t [place] [address] Care Team Providers Care Family Practice Physician Name Role Phone Juan R Blount MD Primary Care Provide r Encounter Details Date Type Department Care Team (Late st Contact Info) Description 07/03/2022 Orders Only [facility] CHC MED & PEDS [address] [place] [address] Luz Marina Zaragoza LPN Social History Tobacco [...] Description 01/25/2025 1:00 PM EDT Office Visit [facility] MEDICINE [address] [place] [address] Juan R Blount MD [address] [place] [address] documented as of this encounter Visit Diagnoses Not on filedocumented in this encounter Care Teams Family Practice Physician Relationship Specialty Start Date End Date Juan R Blount MD [address] [place] [id number] PCP - General Internal Medicine 12/09/13 [facility] Endocrinology 08/23/24 documented as of this encounter
--- OUTSIDE RECORDS SUMMARY | 2025-01-21 11:33 | XMS_ITS | Encounter Summary ---
Author Organization [employer] Address [address] [facility] 7t [place] [address] Care Team Providers Care Cone Baker Machine Name Role Phone Juan R Blount MD Primary Care Provide r Reason for Visit * Reason Onset Date Comments Med Refill 12/03/2022 Encounter Details Date Type Department Care Team (Late st Contact Info) Description 12/03/2022 Refill [facility] MEDICINE [address] [place], [place] [phone] Juan R Blount MD [address] [place] [address] Asthma, unspecified asthma severity, unspecified whether complicated, [...] Office Visit [facility] MEDICINE [address] [place] [address] Juan R Blount MD [address] [place] [address] documented as of this encounter Visit Diagnoses Diagnosis Asthma, unspecified asthma severity, unspecified whether complicated, unspecified whether persistent documented in this encounter Additional Health Concerns Assessment Noted Time PHQ-9 Depression Total Score: 8 11/20/19 23 9:41 AM EDT documented as of this encounter Care Teams Cone Baker Machine Relationship Specialty Start Date End Date Juan R Blount MD [address] [place] [address] PCP - General Internal Medicine 12/09/13 Sh[facility] Sutton Endocrinology 08/23/24 documented as of this encounter
--- OUTSIDE RECORDS SUMMARY | 2025-01-21 11:33 | XMS_ITS | Encounter Summary ---
Author Organization [employer] Address [address] [facility] 7t [place] [address] Care Team Providers Care Marbleizing Machine Tender Name Role Phone Juan R Blount MD Primary Care Provide r Encounter Details Date Type Department Care Team (Late Contact Info) Description 05/31/2022 Abstract [facility] MEDICINE [address] [place], [place] [phone] Juan R Blount MD [address] [place] [phone] Social History Tobacco Use Types Packs/Day Years [...] Description 01/25/2025 1:00 PM EDT Office Visit [facility] MEDICINE [address] [place] [address] Juan R Blount MD [address] [place], [place] [phone] documented as of this encounter Visit Diagnoses Not on filedocumented in this encounter Care Teams Marbleizing Machine Tender Relationship Specialty Start Date End Date Juan R Blount MD [address] [place] [address] [phone] PCP - General Internal Medicine 12/09/13 Sh[facility] Sutton Endocrinology 08/23/24 documented as of this encounter
--- OUTSIDE RECORDS SUMMARY | 2025-01-21 11:33 | XMS_ITS | Encounter Summary ---
Author Organization [employer] Address [address] [facility] 7[address] [place] [address] Care Team Providers Care Assembler Flexible Leads Name Role Phone Juan R Blount MD Primary Care Provide r Reason for Visit * Reason Comments Med Refill Encounter Details Date Type Department Care Team ([facility] st Contact Info) Description 07/29/2023 Refill [facility] CHC MED & PEDS [address] [place] [address] Aggie Guan MD [address] [place] [address] Primary insomnia Social History Tobacco Use Types [...] [facility] [address] [place] [address] Juan R Blonut MD [address] [place] [address] documented as of this encounter Visit Diagnoses Diagnosis Primary insomnia Persistent disorder of initiating or maintaining sleep documented in this encounter Additional Health Concerns Assessment Noted Time PHQ-9 Depression Total Score: 8 11/20/19 23 9:41 AM EDT documented as of this encounter Care Teams Assembler Flexible Leads Relationship Specialty Start Date End Date Juan R Blount MD [address] [place] [address] PCP - General Internal Medicine 12/09/13 Sh[facility] Sutton Endocrinology 08/23/24 documented as of this encounter
--- OUTSIDE RECORDS SUMMARY | 2025-01-21 11:33 | XMS_ITS | Clinical Summary ---
Author Organization [facility] Address [address] [place] [address] [place] [address] Phone Care Team Providers Care Informatics Specialist Name Role Phone Juan R Eaton MD [...] this topic Insurance [place] Care Teams Informatics Specialist Relationship Specialty Start Date End Date Juan R Eaton MD PCP - General Internal Medicine 08/23/20
--- OUTSIDE RECORDS SUMMARY | 2025-01-21 11:33 | XMS_ITS | Encounter Summary ---
Author Organization [employer] Address [address] [facility] [address] [place] [address] Care Team Providers Care Wafer Batter Mixer Name Role Phone Juan R Blount MD Primary Care Provide r Reason for Visit * Reason Comments Med Refill Encounter Details Date Type Department Care Team ([facility] st Contact Info) Description 12/17/2024 Refill [facility] MEDICINE [address] [place], [place] [phone] Juan R Blount MD [address] [place], [place] [phone] Asthma, unspecified asthma severity, unspecified whether complicated, [...] [place] Subject: Script Requests Grebrit[place], I am (Computer Peripheral Equipment Operator Ashley Ponce), Computer Peripheral Equipment Operator for [facility] Care Management, requesting the following DME???s on behalf of patient. DME Item: Handheld Shower head, and non-slip bathmat Supportive DX: R29.6, E66.09 If you should have any inquiries regarding this request, feel free to contact the Computer Peripheral Equipment Operator below. Computer Peripheral Equipment Operator: Ashley Ponce E-mail: [email or web address] Freezer Operator: Freezer Operator Gayla Singh Phone: E-mail: [email or web address] Thanks in advance for your assistance with this request. Sincerely, [facility] Care Management documented in this encounter Plan of Treatment Upcoming Encounters Date Type Department Care Team ([facility] st Contact Info) Description 01/25/2025 1:00 PM EDT Office Visit [facility] MEDICINE [address] [place] [address] Juan R Blount MD [address] [place] [address] documented as of this encounter Visit Diagnoses Diagnosis Asthma, unspecified asthma severity, unspecified whether complicated, unspecified whether persistent documented in this encounter Additional Health Concerns Assessment Noted Time PHQ-9 Depression Total Score: 3 01/15/20 24 1:38 PM EDT documented as of this encounter Care Teams Wafer Batter Mixer Relationship Specialty Start Date End Date Juan R Blount MD [address] [place] [address] PCP - General Internal Medicine 12/09/13 Shasta Sutton Endocrinology 08/23/24 documented as of this encounter
--- OUTSIDE RECORDS SUMMARY | 2025-01-21 11:33 | XMS_ITS | Patient Health Record ---
Author Organization [facility] Address [address] [place] [address] Care Team Providers Care Barmaid Name Role Phone Angelito Vega MD, Juan R Primary Care Provide r Caden Berry [phone] Reason For Referral No Information Encounters Encounter Location Date Provider Diagnosis [facility] [address] [place] [address] 05/24/2024 Caden Huffman Plan Of Treatment No Information Insurance Providers Payer Name Payer Address Payer Phone Subscriber Number Group Number Insured Name Patient Relationship to Insured Coverage Start Date Coverage End Date [facility] [address] [place] [phone] [id number] MERCEDES BRUSH Self - patient is the insured
--- OUTSIDE RECORDS SUMMARY | 2025-01-21 11:33 | XMS_ITS | Clinical Summary ---
Author Organization [employer] Address [address] [place] [address] Care Team Providers Care Felt Cutting Machine Operator Name Role Phone Juan R Blount MD Primary Care Provide r Allergies Active Allergy Reactions Criticality Noted Date Comments Kurt Inhibitors Cough Acetaminophen Other reaction(s): rash Albuterol Other reaction(s): rash Insulin Other reaction(s): rash Iodine Other reaction(s): rash Latex Other reaction(s): unspecified Medroxyprogesterone Other reaction(s): rash Penicillin V Rash Low 01/07/2024 Medications Continuous Blood Gluc Couples Therapist (FreeStyle Crystal 2 Quapaw) deviceIndication s:Type 2 diabetes mellitus with hyperglycemia, with long-term current use of insulin ([facility]) 1 Device before breakfast, before lunch, and before evening meal. 1 each 023 Active Continuous Blood Gluc Sensor (FreeStyle Crystal 2 Sensor) miscIndications: Type 2 diabetes mellitus with hyperglycemia, with long-term current use of insulin ([facility]) 1 Device before breakfast, before lunch, and before evening meal. 2 each 023 Active econazole nitrate 1 % cream APPLY TOPICALLY TO AFFECTED AREA(S) TWICE DAILY 30 g 024 Active hydrocortisone 2.5 % cream APPLY [...] moderate pain. Active losartan (Cozaar) 100 MG tabletIndication s:Primary hypertension TAKE 1 TABLET BY MOUTH EVERY MORNING 90 tablet 3 Active Aspirin Low Dose 81 MG EC tabletIndication s:Type 2 diabetes mellitus with hyperglycemia, with long-term current use of insulin ([facility]) TAKE 1 TABLET BY MOUTH EVERY MORNING 90 tablet 3 Active amLODIPine (Norvasc) 5 MG tabletIndication s:Essential hypertension TAKE 1 TABLET BY MOUTH EVERY EVENING 90 tablet Active TRUEplus Lancets 33G miscIndications: Type 2 diabetes mellitus with hyperglycemia ([facility]),habilitation specialist (current) use of insulin (CMS/HCC) ([facility]) TEST BLOOD SUGAR FOUR TIMES DAILY 300 each Active glucose blood (FREESTYLE LITE) test stripIndications :Type 2 diabetes mellitus with hyperglycemia (HCC),custodial (current) use of insulin ([facility]) ([facility]) TEST BLOOD SUGAR FOUR TIMES DAILY 300 strip Active clotrimazole (Lotrimin) 1 % cream APPLY TOPICALLY TWICE DAILY FOR 28 DAYS 30 g 5 Active Dulaglutide 4.5 MG/0.5ML solution auto-injectorInd ications:Type 2 diabetes mellitus with hyperglycemia, with long-term current use of insulin ([facility]) Inject 4.5 mg under the skin 1 (one) time per week. 2 mL 3 025 Active Ventolin HFA 108 (90 Base) MCG/ACT inhalerIndicatio ns:Asthma, unspecified asthma severity, unspecified whether complicated, unspecified whether persistent INHALE 2 PUFFS BY MOUTH EVERY 4 TO 6 HOURS NEEDED 18 g 1 07/10/2 025 Active Tresiba FlexTouch 200 UNIT/ML injection INJECT 60 UNITS SUBCUTANEOUSLY AT BEDTIME 9 mL 6 Active NovoLOG FLEXPEN 100 UNIT/ML pen INJECT 17 UNITS SUBCUTANEOUSLY THREE TIMES DAILY DIRECTED 15 mL 025 Active atenolol (Tenormin) 25 MG tabletIndication s:Essential hypertension TAKE 1/2 TABLET BY MOUTH TWICE DAILY IN THE MORNING AND EVENING 90 tablet 1 025 Active atorvastatin (Lipitor) 40 MG tabletIndication s:Mixed hyperlipidemia TAKE 1 TABLET BY MOUTH AT BEDTIME 90 tablet 025 Active montelukast (Singulair) 10 MG tabletIndication s:Wheezing TAKE 1 TABLET BY MOUTH EVERY EVENING 90 tablet 025 Active Embecta Pen Needle Janene 32G X 4 MM miscIndications: Type 2 diabetes mellitus without complication, with long-term current use of insulin ([facility]) USE DIRECTED FOUR TIMES DAILY 100 each 5 Active Incruse Ellipta 62.5 MCG/ACT aerosol powderIndication s:Wheeze INHALE 1 PUFF BY MOUTH EVERY DAY AT THE SAME TIME RINSE MOUTH AFTER USING 30 each 1 025 Active gabapentin (Neurontin) 800 MG tabletIndication s:Type 2 diabetes mellitus with hyperglycemia, with long-term current use of insulin (HCC) TAKE 1 TABLET BY MOUTH THREE TIMES DAILY IN THE MORNING, AT NOON, AND IN THE EVENING 90 tablet 2 025 Active zolpidem (Ambien) 10 MG tabletIndication s:Primary insomnia TAKE 1 TABLET BY MOUTH AT BEDTIME NEEDED FOR SLEEP 30 tablet 025 Active BD Pen Needle Janene U/F 32G X 4 MM miscIndications: Type 2 diabetes mellitus without complication, with long-term current use of insulin (HCC) USE DIRECTED FOUR TIMES DAILY 100 each 5 025 2024 Discontinued gabapentin (Neurontin) 800 MG tabletIndication s:Type 2 diabetes mellitus with hyperglycemia, with long-term current use of insulin (HCC) TAKE 1 CAPSULE BY MOUTH THREE TIMES DAILY IN THE MORNING, AT NOON, AND IN THE EVENING 90 tablet 2 025 2024 Discontinued Umeclidinium [place]land (Incruse Ellipta) 62.5 MCG/ACT aerosol powderIndication s:Wheeze Inhale 1 Act (62.5 mcg) in the morning. AT THE SAME TIME RINSE MOUTH AFTER USING. 30 each 1 025 2024 Discontinued zolpidem (Ambien) 10 MG tabletIndication s:Primary insomnia TAKE 1 TABLET BY MOUTH AT BEDTIME NEEDED FOR SLEEP 30 tablet 025 2024 Discontinued Umeclidinium [place] (Incruse Ellipta) 62.5 MCG/ACT aerosol powderIndication s:Wheeze INHALE 1 PUFF BY MOUTH EVERY DAY AT THE SAME TIME RINSE MOUTH AFTER USING 1 Act 1 025 2024 Discontinued zolpidem (Ambien) 10 MG tabletIndication s:Primary insomnia TAKE 1 TABLET BY MOUTH AT BEDTIME NEEDED FOR SLEEP 30 tablet 025 2024 Discontinued(R eorder (will not trigger notification to Pharmacy)) Active Problems Problem Noted Date Diagnosed Date [...] hypertensive, diabetic and a smoker. Seen by Air Launch Weapons Technician Dr Sarmiento 10/20/2024 He ordered an ECHO [...] rare follicular cells seen in the sample, Sheldahl category 1. She discussed with the patient that nondiagnostic results yield a 5-20% risk of malignancy. At this point the plan is to repeat the biopsy in about 3 months. Print Shop Stenographer will arrange for repeat FNA left mid [...] spine, NCS Malignant neoplasm of right breast (CMS/HCC) Assessment & Plan (12/23/2024 3:57 PM EDT): [...] clarify preoperative requirements and ensure patient understanding. Dayton Sharma from Dr. Mclean s office to coordinate [...] requested from Neurology She was seen at [facility] 08/2024 and was supposed to [...] Pt is now under the care of Fuel Retrofitting Technician Dr Holm last seen 05/11/2019 He ordered [...] was last done on: 08/2022 [facility] No retinopathy Microalbumin checked on: 10/18/2024 was: [...] was last done on: 08/2022 [facility] No retinopathy Microalbumin checked on: 07/24/2021 was: [...] Encounters Date Type Department Care Team Description 01/20/2025 Refill [facility] [address] [place] [address] Juan R Blount MD Primary insomnia 01/18/2025 Patient Outreach [facility] [address] [place] [address] Juan R Blount MD Pre-visit Planning ((Unable to reach for PVP screening, LVM) to be completed in office ) 01/18/2025 Refill [facility] [address] [place] [address] Juan R Blount MD Type 2 diabetes mellitus with hyperglycemia, with long-term current use of insulin (CMS/[facility]) 01/15/2025 Refill [facility] [address] [place] [address] Juan R Blount MD Wheeze 01/13/2025 Orders Only GENERIC EXTERNAL DATA DEPARTMENT Provider, Generic External Data 01/13/2025 Refill [facility] [address] [place] [address] Juan R Blount MD Type 2 diabetes mellitus with hyperglycemia, with long-term current use of insulin (CMS/HCC) 01/11/2025 Orders Only GENERIC EXTERNAL DATA DEPARTMENT Provider, Generic External Data 01/08/2025 Refill [facility] [address] [place] [address] Juan R Blount MD Type 2 diabetes mellitus without complication, with long-term current use of insulin (CMS/HCC) 12/29/2024 Orders Only GENERIC EXTERNAL DATA DEPARTMENT Provider, Generic External Data 12/27/2024 Refill [facility] [address] [place] [address] Aggie Guan MD Primary insomnia 12/24/2024 Telephone [facility] [address] [place] [address] Juliana Goode, [facility] 12/23/2024 1:15 PM EDT Office Visit [facility] [address] [place] [address] Juan R Blount MD Type 2 diabetes mellitus with diabetic polyneuropathy, with long-term current use of insulin ([facility]) (Primary Dx); Right thyroid nodule; Abnormal ECG; Malignant neoplasm of right female breast, unspecified estrogen receptor status, unspecified site of breast ([facility]); Polyneuropathy associated with underlying disease ([facility]); Chronic midline low back pain without sciatica; Neck pain on right side; Preventative health care 12/23/2024 Travel 12/21/2024 Refill [facility] [address] [facility] [place] [address] Juan R Blount MD Wheeze 12/17/2024 Refill [facility] [address] [facility] [place] [address] Juan R Blount MD Asthma, unspecified asthma severity, unspecified whether complicated, unspecified whether persistent 12/14/2024 Orders Only GENERIC EXTERNAL DATA DEPARTMENT Provider, Generic External Data 12/09/2024 Refill [facility] [address] [facility] [place] [address] Juan R Blount MD Mixed hyperlipidemia; Wheezing 12/02/2024 Telephone [facility] [address] [facility] [place] [address] Juan R Blount MD [facility] 11/12/2024 Refill [facility] [address], [place] [phone] Juan R Blount MD Primary insomnia 11/10/2024 Orders Only GENERIC EXTERNAL DATA DEPARTMENT Provider, Generic External Data 11/10/2024 Refill [facility] [address] [facility] [place] [address] Juan R Blount MD Essential hypertension 11/09/2024 Refill [facility] [address] [facility] [place] [address] Juan R Blount MD 10/28/2024 Refill [facility] [address] [facility] [address] Elham Fuentes MD Asthma, unspecified asthma severity, unspecified whether complicated, unspecified whether persistent from Last 3 Months Immunizations Immunization Administration [...] Description 01/25/2025 1:00 PM EDT Office Visit [facility] [address], [place] [phone] Juan R Blount MD [address] [place] [address] Health Maintenance Due Date Last Done Comments [...] years 1-dose series) 2015 COVID-19 Vaccine ( - season) 2024 04/29/2022, 12/11/2021, 07/11/2021, Additional history exists Influenza Vaccine (#1) 2024 Diabetes: Hemoglobin A1C 01/12/2025 025, 01/15/2024, 11/06/2022, Additional history exists Depression Screening 01/14/2025 01/15/2024, 01/15/20 SDOH Screening 01/14/2025 01/15/2024 Diagnostic Breast Imaging [...] LEVEL 5 Routine 01/13/2025 1:28 PM EDT PATHOLOGY REPORT Routine 01/11/2025 3:53 PM EDT HEMATOXYLIN AND EOSIN STAIN Routine 12/29/2024 12:49 [...] CELL BLOCK Routine 11/10/2024 11:26 AM EDT LIPID PANEL, STANDARD Routine 10/18/2024 2:56 PM EDT ALBUMIN, RANDOM URINE W/CREATININE Routine 10/18/2024 2:55 PM EDT POCT GLYCATED HEMOGLOBIN, TOTAL Routine 10/12/2024 11:09 AM EDT Type 2 diabetes mellitus without complication, with long-term current use of insulin (CMS/HCC) HEPATITIS PANEL, GENERAL Routine 02/05/2024 9:25 AM EDT from Last 3 Months or Most Recently Relevant to Health Maintenance Results * Gross and Microscopic Level 5 (01/13/2025 1:28 PM EDT) 01/13/2025 1:28 PM EDT 01/13/2025 2:55 PM EDT [facility] - 01/18/2025 10:35 AM EDT ----- ------- Name: Torrie Sy Age/Sex: 69/F : 1955 Unit#: [id number] Attend Dr: George Bearden MD Re01/13/25 Status: [facility] Location: [facility] Disch: ----- ------- SPEC : [id number] RECD: 01/13/25-1455 STATUS: AMY WEBSTER NUM: [id number] HAILEY: 01/13/25-[address] [facility] [address]: George Bearden MD ENTERED: 01/13/25-1517 SP TYPE: Surgical OTHR DR: Juan R [...] anterior surface is disrupted exposing an underlying zelaya membranous lined cavity, consistent with previous excision site. The specimen is inked as follows: superior-blue, inferior-green, lateral-yellow, medial- orange, posterior-red; the anterior disrupted surface is left uninked. Sectioning reveals yellow lobulated adipose tissue with scattered fat necrosis, without evidence of definitive lesion. Hvac Installation Technician sections are submitted sequentially from superior to inferior in cassettes A1 -10, to include A1 superior margin perpendicular and A10 inferior margin perpendicular. (DTL) This case was reviewed intradepartmentally. IHC S/NG Disclaimer NOTE: Unless otherwise stated, all tissue is formalin-fixed and paraffin-embedded. Some or all of the immunohistochemical tests reported herein may have been developed and their performance characteristics determined by [facility]. They have not been cleared [...] Name: Torrie Sy Age/Sex: 69/F : 1955 [id number] Unit#: [id number] Attend Dr: George Bearden MD Re01/13/25 Status: [facility] Location: [facility] Disch: ----- ------- SPEC : [id number] RECD: 01/13/250612 STATUS: AMY WEBSTER NUM: [id number] HAILEY: 01/13/25-[address] [facility] [address]: George Bearden MD ENTERED: 01/13/251512 SP TYPE: Surgical OTHR DR: Juan R Bey MD ORDERED: Gross Micro L5 Copies To: Juan R Bey MD [address] [address] George Bearden MD [facility] [address] [place] [phone] ----- ------- Signed (signature on file) [place] 01/18/25 1035 ----- ------- END OF REPORT Generic External Data Provider LAB BLOOD ORDERAB LES Final Result [facility] [address] [place] [phone] * Pathology Report (01/11/2025 3:53 PM EDT) 01/11/2025 3:53 PM EDT 01/13/2025 8:35 AM EDT Kostas [facility] - 01/17/2025 2:02 PM EDT ----- ------- Name: Torrie Sy Age/Sex: 69/F : 1955 [id number] Unit#: [id number] Attend Dr: George Bearden MD Re12/27/24 Status: DEP REF Location: [facility] Disch: ----- ------- SPEC : [id number] RECD: 01/13/25 STATUS: AMY WEBSTER NUM: [id number] HAILEY: 01/11/25-[address] [facility] [address]: George Bearden MD ENTERED: 01/13/25 SP TYPE: Surgical OTHR DR: Juan R Bey MD ORDERED: Consult. refer. Diagnosis A. Breast, right, asymmetry with calcifications, 9:00, 7 cm from nipple, core biopsy (consult slides from [facility], Surgical Pathology Service #[id number]): -Invasive ductal carcinoma with lobular features, MSBR grade 1. -Focus suspicious for ductal carcinoma in situ. B. Breast, right, asymmetry tissue, 9:00, 7 cm from nipple, core biopsy (consult slides from [facility], Surgical Pathology Service #[id number]): -Invasive ductal carcinoma with lobular features, MSBR grade 1. -Ductal carcinoma in situ, nuclear grade 1, with focal calcifications. Synoptic report Procedure: Core biopsy Specimen laterality: Right Histologic type: Invasive ductal carcinoma with lobular features. Histologic grade (Roxana/MSBR histologic score): 1 - Glandular/tubular differentiation: Score: [...] Name: Torrie Sy Age/Sex: 69/F : 1955 [id number] Unit#: [id number] Attend Dr: George Bearden MD Re12/27/24 Status: DEP REF Location: [facility] Disch: ----- ------- SPEC : [id number] RECD: 01/13/25 STATUS: AMY WEBSTER NUM: [id number] HAILEY: 01/11/[address] [facility] [address]: George Bearden MD ENTERED: 01/13/25 SP [...] consult Gross Description Received for consultation from [facility], [place], [place] are 9 slides labeled with the patient's name, date of , and [id number] (4 H E (A1-1, A1-3, B1- 1, B1-3) and 5 IHC (B1-4 ER, B1-5 UT, B1-6 VQP1RCX, B1-7 E-CAD, B1-8 B-CATN)). Also received is a copy of the pathology report with a collection date of 09/23/2024. JGD Note: ER and UT immunostains are scored as Positive (> or [...] less than 10% of the tumor. See [facility] report for staining method. IHC S/NG Disclaimer NOTE: Unless otherwise stated, all tissue is formalin-fixed and paraffin-embedded. Some or all of the immunohistochemical tests reported herein may have been developed and their performance characteristics determined by [facility]. They have not been cleared [...] Torrie Sy Age/Sex: 69/F : 1955 Unit#: [id number] Attend Dr: George Bearden MD Re12/27/24 Status: DEP REF Location: [facility] Disch: ----- ------- SPEC : [id number] RECD: 01/13/25 STATUS: AMY LEONVioleta NUM: [id number] HAILEY: 01/11/25-[address] [facility] [address]: George Bearden MD ENTERED: 01/13/25 SP TYPE: Surgical OTHR DR: Juan R Bye MD ORDERED: Consult. refer. Copies To: Juan R Bey MD [address] [phone] George Bearden MD [facility] [address] [place] [phone] ----- ------- Signed (signature on file) Anna Mayank 01/17/25 1402 ----- ------- END OF REPORT us Generic External Data Provider HISTORICAL/NON OR DERABLE LABS Final Result [facility] [address] [place] [phone] * Hematoxylin and Eosin Stain (12/29/2024 12:49 PM EDT) 12/29/2024 12:4 9 PM EDT 12/29/2024 12:59 PM EDT Narrative [facility] - 01/18/2025 11:08 AM EDT ----- ------- Name: Torrie Sy Age/Sex: 69/F : 1955 Unit#: [id number] Attend Dr: George Bearden MD Re12/29/24 Status: [facility] Location: [facility] Disch: ----- ------- SPEC : [id number] RECD: 12/29/24-1258 STATUS: AMY WEBSTER NUM: [id number] HAILEY: 12/29/24-[address] [facility] [address]: George Bearden MD ENTERED: 12/29/24-130 SP TYPE: Surgical OTHR DR: Juan R Bey MD ORDERED: HE Stain/6, Gross Micro L3, Gross Micro L5/5, Cytokeratin/6, ER/4, UT, IOC, IHC/5, Add. immunos/3, IHC ER/UT/Her2N/4, CK5-6/4, E-cadherin, Ki-67, [id number] COMMENTS: Cassettes A1-A10 are placed in formalin at 1327. Addendum Addendum 1 Entered: 01/18/25-110 (A): [employer] HER2 FISH analysis: Result: Negative Interpretation: HER2 signals/nucleus: 3.2 CEN17 signal/nucleus: 2.8 HER2/CEN17 signal ratio: 1.2 Number of observers: 1 Group: 5 Results show no evidence of HER2 amplification and a HER2/CEN17 ratio of < 2.0 with an average of HER2 copy number < 4.0 signals per cell. This is a negative result. See the entire scanned report in the EMR reports/pathology section. Addendum Signed (signature on file) Anna Mayakn 01/18/25 1108 ----- ------- Diagnosis A. Breast, right, lumpectomy: -Invasive ductal [...] excision: -Fibroadipose tissue; no lymph node identified. CONTINUED ON NEXT PAGE ----- ------- Name: SyTorrie Age/Sex: 69/F : 1955 Unit#: [id number] Attend Dr: George Bearden MD Re12/29/24 Status: [facility] Location: [facility] Disch: ----- ------- SPEC : [id number] RECD: 12/29/24 STATUS: AMY REVioleta NUM: [id number] HAILEY: 12/29/[address] [facility] [address]: George Bearden MD ENTERED: 12/29/24-8406 SP TYPE: Surgical OTHR DR: Juan R Bey MD ORDERED: HE Stain/6, Gross Micro L3, Gross Micro L5/5, Cytokeratin/6, ER/4, UT, IOC, IHC/5, Add. immunos/3, IHC ER/UT/Her2N/4, CK5-6/4, E-cadherin, Ki-67, [id number] COMMENTS: Cassettes A1-A10 are placed in formalin at 1327. Diagnosis (Continued) D. Lymph node, sentinel #2, count 273, [...] Nipple: N/A Skeletal muscle: N/A DCIS: Present Nuclear grade: 1 Extent: EIC negative LCIS: [...] margin F Lymph nodes Number examined: 3 CONTINUED ON NEXT PAGE ----- ------- Name: Torrie Sy Age/Sex: 69/F : 1955 Unit#: [id number] Attend Dr: George Bearden MD Re12/29/24 Status: [facility] Location: [facility] Disch: ----- ------- SPEC : [id number] RECD: 12/29/24 STATUS: AMY WEBSTER NUM: [id number] HAILEY: 12/29/[address]: George Bearden MD ENTERED: 12/29/24 SP TYPE: Surgical OTHR DR: Juan R Bey MD ORDERED: HE Stain/6, Gross Micro L3, Gross Micro L5/5, Cytokeratin/6, ER/4, UT, IOC, IHC/5, Add. immunos/3, IHC ER/UT/Her2N/4, CK5-6/4, E-cadherin, Ki-67, [id number] COMMENTS: Cassettes A1-A10 are placed in formalin at 1327. Diagnosis (Continued) [place] nodes: 3 Axillary nodes: 0 Number involved: [...] may be appropriate to guide further management. Clinical History Neoplasm of right breast Microscopic [...] negative for metastatic carcinoma. Controls stain appropriately. CONTINUED ON NEXT PAGE ----- ------- Name: SyTorrie Age/Sex: 69/F : 1955 Unit#: [id number] Attend Dr: George Bearden MD Re12/29/24 Status: [facility] Location: [facility] Disch: ----- ------- SPEC : [id number] RECD: 12/29/24 STATUS: AMY WEBSTER NUM: [id number] HAILEY: 12/29/[address] [facility] [address]: George Bearden MD ENTERED: 12/29/247881 SP TYPE: Surgical OTHR DR: Juan R Bey MD ORDERED: HE Stain/6, Gross Micro L3, Gross Micro L5/5, Cytokeratin/6, ER/4, UT, IOC, IHC/5, Add. immunos/3, IHC ER/UT/Her2N/4, CK5-6/4, E-cadherin, Ki-67, [id number] COMMENTS: Cassettes A1-A10 are placed in formalin at 1327. Material Received A. Right breast lumpectomy B. [place] node #1, count 1497 C. Additional axillary tissue D. [place] node #2, count 273 E. [place] node #3, count 204 F. Anterior inferior [...] other cysts, lesions or nodules are identified. Hvac Installation Technician sections are submitted in cassettes A1-A10 from medial to lateral to [...] anterior, slice 9; A10 lateral, slice 10. CONTINUED ON NEXT PAGE ----- ------- Name: Torrie Sy Age/Sex: 69/F : 1955 Unit#: [id number] Attend Dr: George Bearden MD Re12/29/24 Status: [facility] Location: [facility] Disch: ----- ------- SPEC : [id number] RECD: 12/29/24-1259 STATUS: AMY LEONVioleta NUM: [id number] HAILEY: 12/29/24-[address] [facility] [address]: George Bearden MD ENTERED: 12/29/24-1305 SP TYPE: Surgical OTHR DR: Juan R Bey MD ORDERED: HE Stain/6, Gross Micro L3, Gross Micro L5/5, Cytokeratin/6, ER/4, UT, IOC, IHC/5, Add. immunos/3, IHC ER/UT/Her2N/4, CK5-6/4, E-cadherin, Ki-67, [id number] COMMENTS: Cassettes A1-A10 are placed in formalin at 1327. Gross Description (Continued) The intraoperative diagnosis is reported to Dr. [...] lobular fat. No lymph nodes are identified. Hvac Installation Technician sections are submitted in a cassette labeled [...] cauterized, zelaya, white-pink and bean-yellow consistent with prior biopsy side. The convex surface consistent [...] micronodular focus along the prior biopsy side. Hvac Installation Technician sections perpendicular to the anterior-inferior margins are submitted in cassettes F1-F10, from medial to lateral, respectively. CEDS Interpretive Information CONTINUED ON NEXT PAGE ----- ------- Name: Torrie Sy Age/Sex: 69/F : 1955 Unit#: [id number] Attend Dr: George Bearden MD Re12/29/24 Status: [facility] Location: [facility] Disch: ----- ------- SPEC : [id number] RECD: 12/29/24-1258 STATUS: AMY WEBSTER NUM: [id number] HAILEY: 12/29/24-[address] [facility] [address]: George Bearden MD ENTERED: 12/29/24-1981 SP TYPE: Surgical OTHR DR: Juan R Bey MD ORDERED: HE Stain/6, Gross Micro L3, Gross Micro L5/5, Cytokeratin/6, ER/4, UT, IOC, IHC/5, Add. immunos/3, IHC ER/UT/Her2N/4, CK5-6/4, E-cadherin, Ki-67, [id number] COMMENTS: Cassettes A1-A10 are placed in formalin at 1327. Gross Description (Continued) All tests are performed on formalin-fixed, paraffin-embedded tissue using automated immunostain methods: Estrogen receptor: Clone SP1; [place] [employer] [place] DAB Progesterone receptor: Clone 1E2; [place] [employer] [place] DAB HER2: FDA-approved [place] PATHWAY anti-HER-2/gail (4B5) Monoclonal; [employer] [place] DAB Positive and negative controls are performed [...] (ASR). These tests were developed for clinical purposes and their performance characteristics determined by [...] and Progesterone Receptor Testing in Breast Cancer: [place] [employer] Oncology/[employer] Guideline Update. Arch of Pathol Lab Med. 2020; 144(5): 545-563. CONTINUED ON NEXT PAGE ----- ------- Name: Torrie Sy Age/Sex: 69/F : 1955 Unit#: [id number] Attend Dr: George Bearden MD Re12/29/24 Status: [facility] Location: [facility] Disch: ----- ------- SPEC : [id number] RECD: 12/29/24-1259 STATUS: AMY WEBSTER NUM: [id number] HAILEY: 12/29/24-[address] [facility] [address]: George Bearden MD ENTERED: 12/29/24-1304 SP TYPE: Surgical OTHR DR: Juan R Bey MD ORDERED: HE Stain/6, Gross Micro L3, Gross Micro L5/5, Cytokeratin/6, ER/4, UT, IOC, IHC/5, Add. immunos/3, IHC ER/UT/Her2N/4, CK5-6/4, E-cadherin, Ki-67, [id number] COMMENTS: Cassettes A1-A10 are placed in formalin at 1327. Gross Description (Continued) Arely CHILDERS, Roosevelt BABIN, Marie KH, et al. Her2 testing in breast cancer: [place] [employer] clinical practice guideline focused update. Arch Pathol Lab Med. 2018; 142(11): 9059-2066. Mitch N, Lion P, et al. Adjuvant abemaciclib combined with endocrine therapy for high- risk early breast cancer: updated efficacy and Ki-67 analysis from the monarchE study. Lita Oncol. 2020;32(12):5573-0175. Roosevelt ME, Yossi DF, et al. ASCO/CAP Guideline Recommendations for Immunohistochemical Testing of Estrogen and Progesterone Receptors in Breast Cancer. J Clin Oncol, 28 (16), 2010: 2087-9373. This case was reviewed intradepartmentally. Results given to Dr. Bearden by secure text by Dr. Talley on 01/05/2025 at 4:43 pm. Special studies ordered and performed: Immunostains for CK 5/6 and ER on A3, F4, and F10; ER, UT, HER2 and Ki 67 on A5; pankeratin on B1, D1 and E1. IHC S/NG Disclaimer NOTE: Unless otherwise stated, all tissue is formalin-fixed and paraffin-embedded. Some or all of the immunohistochemical tests reported herein may have been developed and their performance characteristics determined by [facility]. They have not been cleared or approved by the U.S. Food and Drug Administration (FDA). However, the FDA has determined that such clearance or approval is not necessary. This laboratory is certified under the Clinical Laboratory Improvement Amendments of 1988 (CLIA) as qualified to perform high complexity clinical laboratory testing. Copies To: Juan R Bey MD [address] [address] George Bearden MD [facility] [address] [place] [address] CONTINUED ON NEXT PAGE ----- ------- Name: Torrie Sy Age/Sex: 69/F : 1955 Unit#: [id number] Attend Dr: George Bearden MD Re12/29/24 Status: [facility] Location: [place] Disch: ----- ------- SPEC : [id number] RECD: 12/29/24 STATUS: AMY WEBSTER NUM: [id number] HAILEY: 12/29/[address] [facility] [address]: George Bearden MD ENTERED: 12/29/24-1302 SP TYPE: Surgical OTHR DR: Juan R Bey MD ORDERED: HE Stain/6, Gross Micro L3, Gross Micro L5/5, Cytokeratin/6, ER/4, UT, IOC, IHC/5, Add. immunos/3, IHC ER/UT/Her2N/4, CK5-6/4, E-cadherin, Ki-67, [id number] COMMENTS: Cassettes A1-A10 are placed in formalin at 1327. ----- ------- Signed (signature on file) Anna Talley 01/05/25 1658 ----- ------- END OF REPORT us Generic External Data Provider LAB BLOOD ORDERAB LES Final Result [facility] [address] [place] [address] [phone] * BI MM SURGICAL SPECIMEN (12/29/2024 12:45 PM EDT) Anatomical Region Laterality Modality Breast Bilateral Mammography 12/29/2024 12:4 5 PM EDT Narrative 12/29/2024 1:09 PM EDT [place] [address] [id number] Mammography Report Signed Patient: Torrie Sy MR#: [id number] : 1955 Acct:[id number] Age/Sex: 69 / F ADM Date: 12/29/24 Loc: [facility] Attending Dr: George Bearden MD Ordering Physician: George Bearden MD Results: Date of Service: 12/29/24 Follow Up: Procedure(s): MM surgical specimen Accession Number(s): [id number] cc: Juan R Bey MD; George Bearden MD Single right breast specimen radiograph demonstrates the tag and the marker clip within the specimen. Electronically signed by: Gabriella Campuzano DO 12/29/2024 01:06 PM EDT Dictated By: Gabriella Campuzano DO Signed By: <Electronically signed by Gabriella Campuzano DO in OV> 12/29/24 1306 DD/ 1245 TD/TT: 12/29/24 1300 National Sales Consultant: Procedure Note Marthater, Image - 12/29/2024 [place] [address] [id number] Mammography Report Signed Patient: Torrie SyMR#: [id number] : 5Acct:[id number] Age/Sex: 69 / FADM Date: 12/29/24 Loc: HO.PERLA Attending Dr: George Bearden MD Ordering Physician: George Beardenults: Date of Service: 12/29/24Follow Up: Procedure(s): MM surgical specimen Accession Number(s): [id number] cc: Juan R Bey MD; George Bearden MD Single right breast specimen radiograph demonstrates the tag and the marker clip within the specimen. Electronically signed by: Gabriella Campuzano DO 12/29/2024 01:06 PM EDT Dictated By: Gabriella Campuzano DO Signed By: <Electronically signed by Gabriella Campuzano DO in OV> 12/29/24 1306 DD/ 1245 TD/TT: 12/29/24 1300 National Sales Consultant: [facility] External Provider IMG BI PROCEDURES Final Result * NM SENTINEL NODE W IMAGING (12/29/2024 8:23 AM EDT) Anatomical Region Laterality Modality Nuclear Medicine 12/29/2024 8:23 AM EDT Narrative 12/29/2024 12:34 PM EDT [place] [address] Nuclear Medicine Report Signed Patient: Torrie Sy MR#: [id number] : 1955 Acct:[id number] Age/Sex: 69 / F ADM Date: 12/29/24 Loc: HO.SSS Attending Dr: George Bearden MD Ordering Physician: George Bearden MD Date of Service: 12/29/24 Procedure(s): NM sentinel node w imaging Accession Number(s): [id number] cc: Juan R Bey MD; George Bearden [...] OV> 12/29/24 1232 DD/ 0823 TD/TT: 12/29/24 09 National Sales Consultant: [facility] Procedure Note Donotuseinterpreter, Image - 12/29/2024 [place] [address] Nuclear Medicine Report Signed Patient: Torrie Sy#: [id number] : 5Acct:[id number] Age/Sex: 69 / FADM Date: 12/29/24 Loc: [facility] Attending Dr: George Bearden MD Ordering Physician: George Bearden MD Date of Service: 12/29/24 Procedure(s): NM sentinel node w imaging Accession Number(s): [id number] cc: Juan R Bey MD; George Bearden [...] 12/29/24 1232 DD/ 0823 TD/TT: 12/29/24 0900 National Sales Consultant: MSM [facility] External Provider IMG NM PROCEDURES Final Result * (ABNORMAL) Glucose, Whole Blood (12/29/2024 7:43 AM EDT) Glucose, Whole Blood 239(H) 60 - 115 mg/dL [facility] Comment:METER #: [id number] 12/29/2024 7:43 AM EDT 12/29/2024 7:47 AM EDT Generic External Data Provider LAB BLOOD ORDERAB LES Final Result [facility] [address] [place] [address] [phone] * Mammogram Diagnostic Right (12/27/2024 11:13 AM EDT) Anatomical Region Laterality Modality Breast Right Mammography 12/27/2024 11:1 3 AM EDT Narrative 12/27/2024 1:02 PM EDT [facility] [address] [place] [address] Mammography Report Signed Patient: Torrie Sy MR#: [id number] : 1955 Acct:[id number] Age/Sex: 69 / F ADM Date: 12/27/24 Loc: [facility] Attending Dr: George Bearden MD Ordering Physician: George Bearden MD Results: 6Know n Biopsy Proven Malignancy Date of Service: 12/27/24 Follow Up: Surgical Consult Procedure(s): MM diagnostic mammo unilat RT Accession Number(s): [id number] cc: Juan R Bey MD; George Bearden [...] carbonated lidocaine 1%: 10 cc. LOCALIZATION SYSTEM: -Watchsend LOCallizer Wire-Free Guidance System with 12g needle applicator. -Length: 7 cm. -RADIOFREQUENCY TAG: ID # [id number] RF Tag ID confirmed with LOCalizer Guidance [...] -Status post right breast RFID localization (tag ID#[id number]). Electronically signed by: Jonathan Bacon MD 12/27/2024 01:00 PM EDT Dictated By: Jonathan Bacon MD Signed By: <Electronically signed by Jonathan Bacon MD in OV> 12/27/24 1300 DD/ 1113 TD/TT: 12/27/24 1120 National Sales Consultant: Procedure Note Donotuseinterpreter, Image - 12/27/2024 [facility] [address] [place] [address] Mammography Report Signed Patient: Torrie Sy#: [id number] : 5Acct:[id number] Age/Sex: 69 / FADM Date: 12/27/24 Loc: HO.MAMMO Attending Dr: George Bearden MD Ordering Physician: George Bearden MDResults: 6Know n Biopsy Proven Malignancy Date of Service: 12/27/24Follow Up: Surgical Consult Procedure(s): MM diagnostic mammo unilat RT Accession Number(s): [id number] cc: Juan R Bey MD; George Bearden [...] carbonated lidocaine 1%: 10 cc. LOCALIZATION SYSTEM: -Watchsend LOCallizer Wire-Free Guidance System with 12g needle applicator. -Length: 7 cm. -RADIOFREQUENCY TAG: ID # [id number] RF Tag ID confirmed with LOCalizer Guidance [...] -Status post right breast RFID localization (tag ID#[id number]). Electronically signed by: Jonathan Bacon MD 12/27/2024 01:00 PM EDT Workstation: [employer] Dictated By: Jonathan Bacon MD Signed By: <Electronically signed by Jonathan Bacon MD in OV> 12/27/24 1300 DD/ 1113 TD/TT: 12/27/24 1120 National Sales Consultant: [facility] External Provider IMG BI PROCEDURES Edited Result - Final * US breast needle loc RT - RFID (12/27/2024 10:32 AM EDT) Anatomical Region Laterality Modality Abdomen Ultrasound 12/27/2024 10:3 2 AM EDT Narrative 12/27/2024 1:02 PM EDT [facility] [address] [place] [address] Ultrasound Report Signed Patient: Torrie Sy MR#: [id number] : 1955 Acct:[id number] Age/Sex: 69 / F ADM Date: 12/27/24 Loc: [facility] Attending Dr: George Bearden MD Ordering Physician: George Bearden MD Date of Service: 12/27/24 Procedure(s): US Breast RF Tag Device Right Accession Number(s): [id number] cc: Juan R Bey MD; George Bearden [...] carbonated lidocaine 1%: 10 cc. LOCALIZATION SYSTEM: -Watchsend LOCallizer Wire-Free Guidance System with 12g needle applicator. -Length: 7 cm. -RADIOFREQUENCY TAG: ID # [id number] RF Tag ID confirmed with LOCalizer Guidance [...] -Status post right breast RFID localization (tag ID#[id number]). Electronically signed by: Jonathan Bacon MD 12/27/2024 01:00 PM EDT Dictated By: Jonathan Bacon MD Signed By: <Electronically signed by Jonathan Bacon MD in OV> 12/27/24 1300 DD/ 1032 TD/TT: 12/27/24 1120 National Sales Consultant: Procedure Note Donotuseinterpreter, Image - 12/27/2024 [facility] [address] [place], [place] [address] Ultrasound Report Signed Patient: Torrie SyMR#: [id number] : 5Acct:[id number] Age/Sex: 69 / FADM Date: 12/27/24 Loc: HO.MAMMO Attending Dr: George Bearden MD Ordering Physician: George Bearden MD Date of Service: 12/27/24 Procedure(s): US Breast RF Tag Device Right Accession Number(s): [id number] cc: Juan R Bey MD; George Bearden [...] carbonated lidocaine 1%: 10 cc. LOCALIZATION SYSTEM: -Watchsend LOCallizer Wire-Free Guidance System with 12g needle applicator. -Length: 7 cm. -RADIOFREQUENCY TAG: ID # [id number] RF Tag ID confirmed with LOCalizer Guidance [...] -Status post right breast RFID localization (tag ID#[id number]). Electronically signed by: Jonathan Bacon MD 12/27/2024 01:00 PM EDT RP Dictated By: Jonathan Bacon MD Signed By: <Electronically signed by Jonathan Bacon MD in OV> 12/27/24 1300 DD/ 1032 TD/TT: 12/27/24 1120 National Sales Consultant: us [facility] External Provider IMG US PROCEDURES Edited Result - Final * (ABNORMAL) Glucose, Whole Blood (12/14/2024 11:00 AM EDT) Glucose, Whole Blood 213(H) 60 - 115 mg/dL [facility] Comment:METER #: [id number] Testing performed in the Endocrinology Department [address] , [address], [facility]. 12/14/2024 11:0 0 AM EDT 12/14/2024 11:04 AM EDT Generic External Data Provider LAB BLOOD ORDERAB LES Final Result [facility] [address] [place] [phone] * Stress test with myocardial perfusion (11/25/2024 9:41 AM EDT) 11/25/2024 9:41 AM EDT Narrative [facility] - 11/28/2024 9:19 AM EDT [address] [address] Nuclear Medicine Report Signed Patient: Torrie Sy MR#: [id number] : 1955 Acct:[id number] Age/Sex: 69 / F ADM Date: 11/25/24 Loc: HO.CARD Attending Dr: David Sarmiento MD Ordering Physician: David Sarmiento MD Date of Service: 11/25/24 Procedure(s): NM cardiolite stress test Accession Number(s): [id number] cc: Juan R Bey MD; David Sarmiento [...] no clear reversible or fixed perfusion abnormality. FL/FL cardiolite stress test Impression: 1. Myocardial perfusion [...] 11/28/24 0915 DD/ 0941 TD/TT: 11/26/24 1400 National Sales Consultant: Procedure Note Donotuseinterpreter, Image - 11/28/[address] [address] Nuclear Medicine Report Signed Patient: Torrie Sy#: [id number] : 5Acct:[id number] Age/Sex: 69 / FADM Date: 11/25/24 [facility] Dr: David Sarmiento MD Ordering Physician: David Sarmiento MD Date of Service: 11/25/24 Procedure(s): NM cardiolite stress test Accession Number(s): [id number] cc: Juan R Bey MD; David Sarmiento [...] no clear reversible or fixed perfusion abnormality. NM/FL cardiolite stress test Impression: 1. Myocardial perfusion [...] 11/28/24 0915 DD/ 0941 TD/TT: 11/26/24 1400 National Sales Consultant: [facility] External Provider CV STRE SS PROCEDURES Edited Result - Final [facility] [address], [place] [phone] * Cell Block (11/10/2024 11:26 AM EDT) 11/10/2024 11:2 6 AM EDT 11/10/2024 11:44 AM EDT Narrative [facility] - 11/11/2024 10:45 AM EDT ----- ------- Name: Torrie Sy Age/Sex: 69/F : 1955 Unit#: [id number] Attend Dr: Eduarda Quintanilla MD Re11/10/24 Status: DEP REF Location: [facility] Disch: ----- ------- SPEC : [id number] RECD: 11/10/24114 STATUS: AMY WEBSTER NUM: [id number] HAILEY: 11/10/24-[address]: Eduarda Quintanilla MD ENTERED: 11/10/24-1212 SP TYPE: Cytology OTHR DR: Juan R Bey MD ORDERED: Cell Block, Fine Ndl Asp Diagnosis Thyroid, left mid lower pole 3.3 cm nodule, fine needle aspiration: Non-diagnostic (Sheldahl category I). COMMENT: Only rare groups of [...] developed and their performance characteristics determined by [facility]. They have not been cleared or approved by the U.S. Food and Drug Administration (FDA). However, the FDA has determined that such clearance or approval is not necessary. This laboratory is certified under the Clinical Laboratory Improvement Amendments of 1988 (CLIA) as qualified to perform high complexity clinical laboratory testing. Copies To: Juan R Bey MD [address] [address] Eduarda Quintanilla MD [facility] Endocr[facility]ology [address] [place] [address] CONTINUED ON NEXT PAGE ----- ------- Name: Torrie Sy Age/Sex: 69/F : 1955 Unit#: [id number] Attend Dr: Eduarda Quintanilla MD Re11/10/24 Status: DEP REF Location: [facility] Disch: ----- ------- SPEC : [id number] RECD: 11/10/24 STATUS: AMY WEBSTER NUM: [id number] HAILEY: 11/10/[address] [facility] [address]: Eduarda Quintanilla MD ENTERED: 11/10/24 SP TYPE: Cytology OTHR DR: Juan R Bey MD ORDERED: Cell Block, Fine Ndl Asp Copies To: (Continued) [email or web address] ----- ------- Signed (signature on file) Juan Blunt MD 11/11/24 1045 ----- ------- END OF REPORT us Generic External Data Provider LAB CYTOLOGY STEVAN PEREZ Final Result [facility] [address] [place] [address] [phone] * (ABNORMAL) Lipid Panel, Standard (10/18/2024 2:56 PM EDT) Triglycerides 186(H) <150 mg/dL [facility] Comment:Desirable Triglyceri de: less than 150 mg/dLBorderline High Triglyceride 150-199 mg/dLHigh Triglyceride: 200-499 mg/dLVery High Triglyceride: greater than or equal to 5OO mg/dL Cholesterol 127 <200 mg/dL [facility] Comment:Desirable Cholestero l: less than 200 mg/dLBorderline High Cholesterol: 200-239 mg/dLHigh Cholesterol: greater than 239 mg/dL LDL Cholesterol Calculated 56 <100 mg/dL [facility] Comment:Desirable LDL: less than 100 mg/dLNear Optimal/Above Optimal LDL: 110- 129 mg/dLBorderline High LDL: 130-159 mg/dLHigh LDL: 160-189 mg/dLVery High LDL: greater than or equal to 190 mg/dL HDL Cholesterol 34(L) >40 mg/dL [facility] Comment:Desirable HDL: great er than 40 mg/dL Note: This HDL assay may give artificially low results in patients with liver disease. 10/18/2024 2:56 PM EDT 10/18/2024 2:56 PM EDT us Generic External Data Provider LAB BLOOD ORDERAB LES Final Result [facility] [address] [place] [phone] * Albumin, Random Urine W/Creatinine (10/18/2024 2:55 PM EDT) Creatinine, Urine 136.42 mg/dL [facility] Microalbumin Urine 28.0 mg/L [facility] Microalbum Creatinine Ratio Ur 20.5 <30 ug/mg cr [facility] Comment:Albumin/Creatinine R atio Reference Ranges: Normal: < 30 ug/mg creatinine Microalbuminuria: 30 - 300 ug/mg creatinineClinical Albuminuria: > 300 ug/mg creatinine 10/18/2024 2:55 PM EDT 10/18/2024 3:23 PM EDT Generic External Data Provider LAB URINE ORDERAB LES Final Result [facility] [address] [place] [phone] * (ABNORMAL) POCT HGB A1C (10/12/2024 11:09 AM EDT) Hemoglobin A1C 7.2(A) 4.0 - 6.0 % QC Media Lot # [id number] Lot# Expiration Date ,132,167 Blood 10/12/2024 11:0 9 AM EDT Juan R Vega MD POINT OF CARE TEST EN TER/EDIT ORDERABLES Final Result * Hepatitis Panel, General (02/05/2024 9:25 AM EDT) Hepatitis A IgM Nonreactive Nonreactive [facility] Comment:IgM antibodies to DE LA CRUZ V not detected; does not exclude earlyacute or recovered HAV infection. ~Hepatitis B Surface Antibody NONREACTIVE Nonreactive [facility] Comment:Nonreactive: < 8.00 mIU/mL Hepatitis B Core Antibody Nonreactive Nonreactive [facility] Hepatitis C Antibody Nonreactive Nonreactive [facility] Comment:Antibodies to HCV no t detected; does not exclude early acuteHCV infection. Hepatitis B Surface Ag Negative Negative [facility] 02/05/2024 9:25 AM EDT 02/05/2024 9:25 AM EDT Generic External Data Provider LAB BLOOD ORDERAB LES Final Result [facility] [address] [place] [phone] from Last 3 Months or Most Recently Relevant to Health Maintenance Insurance [address] [place] [address] [employer] < [address] [facility] [id number] Care Teams Felt Cutting Machine Operator Relationship Specialty Start Date End Date Juan R Blount MD [address] [place] [phone] PCP - General Internal Medicine 12/09/13 [facility] 08/23/24
--- OUTSIDE RECORDS SUMMARY | 2025-01-21 11:33 | XMS_ITS | Encounter Summary ---
Author Organization [employer] Address [address] [facility] [address] [place] [address] Care Team Providers Care Farm Equipment Engineer Name Role Phone Juan R Blount MD Primary Care Provide r Encounter Details Date Type Department Care Team (Late st Contact Info) Description 06/11/2022 Orders Only [facility] [address] [place] [address] Luz Marina Zaragoza LPN Social History Tobacco [...] Visit [facility] MEDICINE [address] [place] [address] Juan R Blount MD [address] [place] [address] documented as of this encounter Visit Diagnoses Not on filedocumented in this encounter Care Teams Farm Equipment Engineer Relationship Specialty Start Date End Date Juan R Blount MD [address] [place] [phone] PCP - General Internal Medicine 12/09/13 [facility] 08/23/24 documented as of this encounter
== END 2025-01-21 10:58 | disposition home or self-care (01) ==
LOC: HO.HGS 10:36
PROVIDERS: PCP Internal Medicine; Visit Provider Surgery
DX: C50.911 Malignant neoplasm of unspecified site of right female breast (principal); D05.11 Intraductal carcinoma in situ of right breast
CPT/HCPCS: 99024

== ENCOUNTER → 2025-01-21 10:35 | Outpatient (BNVA) | payer OTHER, SELFPAY | PROVIDERS: PCP Internal Medicine; Visit Provider Surgery | DX: D05.11 Intraductal carcinoma in situ of right breast (principal); Z98.890 Other specified postprocedural states | CPT/HCPCS: 99212 ==

== ENCOUNTER → 2025-01-21 11:07 | Outpatient (BNV) | payer OTHER, SELFPAY | PROVIDERS: PCP Internal Medicine; Referring Provider Surgery; Visit Provider Internal Medicine Medical Oncology | DX: C50.111 Malignant neoplasm of central portion of right female breast (principal) | CPT/HCPCS: 99204 ==

== ENCOUNTER 2025-01-26 10:12 | Outpatient (REF) | payer OTHER, SELFPAY ==
[2025-01-21 11:50] LABS: MANUAL DIFF FLAG NO
[2025-01-21 11:56] LABS: Hematocrit 35.4 % (37.0-47.0); Hemoglobin 11.6 g/dl (12.0-16.0); Imm Gran Abs Auto 0.07 X10*3/uL (0.00-0.03); Imm Gran Pct Auto 0.5 % (0.0-0.4); Lymphocytes Absolute Auto 2.3 X10*3/uL (1.2-4.9); Mean Corpuscular HGB Conc 32.8 g/dl (31.0-35.0); Mean Corpuscular Hemoglobin 30.0 pg (27.0-33.0); Mean Corpuscular Volume 91.5 fL (80.0-98.0); NRBC Abs Auto 0.000 X10*3/uL (0.0-0.012); NRBC Pct Auto 0.0 /100WBC (0.0-0.2); Platelet Count 371 X10*3/uL (160-400); Red Blood Count 3.87 X10*6/uL (4.20-5.50); White Blood Count 12.9 X10*3/uL (4.8-10.8)
[2025-01-21 12:17] LABS: Alanine Aminotransferase < 6 U/L (0-31); Albumin Level 4.0 g/dL (3.5-5.0); Alkaline Phosphatase 121 U/L (39-117); Anion Gap 13 (12-20); Aspartate Amino Transferase 14 U/L (5-31); Blood Urea Nitrogen 13 mg/dL (9-16); Calcium 9.2 mg/dL (8.4-10.2); Carbon Dioxide 27 mmol/L (22-29); Chloride 105 mmol/L (96-108); Estimated Glomerular Filt Rate > 60; Potassium 4.6 mmol/L (3.3-5.1); Sodium 140 mmol/L (135-145); Total Protein 7.0 g/dL (6.5-8.0)
[2025-01-26 10:34] LABS: CA 27.29 29 U/mL (<38)
--- NOTE | 2025-01-26 11:16 | PM.PROC ---
Brief Operative Note Date of procedure: 01/26/25 Pre-op diagnosis: left mid lower 3.3 cm thyroid nodule FNA biopsy Post-op diagnosis: same Procedure: THYROID FINE NEEDLE ASPIRATION PROCEDURE NOTE ? PROCEDURE PERFORMED: Ultrasound-guided FNA of thyroid nodule ? OPERATORS: Dr. Eduarda Quintanilla ? INDICATION: left mid lower 3.3 cm thyroid nodule; FNA performed to assess for malignancy ? DESCRIPTION OF PROCEDURE: The indications for FNA (to assess for malignancy) were reviewed with the patient in detail. Potential complications (e.g., bleeding, infection, damage to local structures, absence of clear diagnosis after FNA) were reviewed. Alternatives to FNA including conservative observation or surgery were described. The patient understood and agreed to proceed. This was documented by the signing of the written informed consent form. A time-out was performed to confirm the patient's identity and the site of planned FNA. The nodule of interest was identified using ultrasound (14 MHz linear array probe). The site of FNA was then draped in the usual fashion and carefully cleaned and prepared using alcohol swabs. The skin at the previously-identified site of needle insertion was iced and sprayed with numbing spray. Under ultrasound guidance, _4_ passes were performed using a 1.5-inch, 25-gauge needle, and sample was obtained via capillary action. The needle tip was clearly visualized to be within the nodule at the time of sampling for _4_ of _4_ passes The patient tolerated the procedure well. There were no immediate complications. A small adhesive bandage was applied, and the patient was advised to take acetaminophen (rather than NSAIDs) for any discomfort and to report any signs of inflammation/infection or marked swelling. IMPRESSION: Technically successful ultrasound-guided fine needle aspiration of left mid lower 3.3 cm thyroid nodule. PLAN: The patient was advised that I will provide follow-up regarding the cytology result and any subsequent plans. Eduarda Quintanilla MD Endocrinology Attending Condition: stable Disposition: same day
== END 2025-01-26 10:13 | disposition home or self-care (01) ==
LOC: HO.US 10:12
PROVIDERS: Internal Medicine Medical Oncology; PCP Internal Medicine; Visit Provider Student in an Organized Health Care Education/Training Program
DX: E04.1 Nontoxic single thyroid nodule (principal); C50.911 Malignant neoplasm of unspecified site of right female breast
CPT/HCPCS: 10005; 36415; 80053; 82306; 85025; 86300; 88173

== ENCOUNTER → 2025-01-26 10:12 | Outpatient (BNV) | payer OTHER, SELFPAY | PROVIDERS: PCP Internal Medicine; Visit Provider Student in an Organized Health Care Education/Training Program | DX: E04.1 Nontoxic single thyroid nodule (principal) | CPT/HCPCS: 10005 ==

== ENCOUNTER 2025-02-10 11:49 | Outpatient (AMB) | payer OTHER, SELFPAY ==
[2025-02-10 12:34] VITALS: BP 120/76; PULSE 86; O2SAT 98; BMI 27.0
--- NOTE | 2025-02-10 12:34 | MHC.OFFVIS ---
Vital Signs 02/10/25 12:34 Height 5 ft 6 in Weight 167 lb 8.821 oz BMI 27.0 BP 120/76 Blood Pressure Location Rt brachial Position Sitting Pulse 86 Pulse Source Pulse Oximeter Pulse Oximetry (%) 98 Oxygen Delivery Method Room Air Intake Visit Reasons: f/u Thyroid FNA- pt Intake Note: Patient of DR Eduarda Quintanilla, presents today for FNA Thyroid Biopsy Results: Patient present today to follow up on Type 2 Diabetes Mellitus. Patient receives Crystal 3 supplies through: [facility] Last Diabetic Eye exam: 2023 and still has to make appt for this year Last Podiatry Visit: Does not see a Communication Spec Most Recent HgA1C: 7.7%, 12/14/2024 Random Glucose: 208 mg/dL, 12:45 PM Contact Center Specialist Required: No Contact Center Specialist Services: Contact Center Specialist Offered & Declined (DR Arce Speak Fluent Mongolian) Accompanied by: Other Relationship Allergies insulin detemir Allergy (Intermediate, Verified 02/10/25 12:36) Rash penicillin V Allergy (Intermediate, Verified 02/10/25 12:36) Rash acetaminophen (From Tylenol) Allergy (Mild, Verified 02/10/25 12:36) ITCH,RASH iodine (Iodine) Allergy (Mild, Verified 02/10/25 12:36) HIVES trimerosal Allergy (Intermediate, Uncoded 02/10/25 12:36) rash Latex Gloves Allergy (Mild, Uncoded 02/10/25 12:36) Rash METAL Allergy (Mild, Uncoded 02/10/25 12:36) HIVES Medication List - Last Reconciled 02/10/25 by Yeset Yazmin Mary MD albuterol sulfate 90 mcg/actuation 2 puffs inhalation Q6H PRN amlodipine 5 mg PO BEDTIME aspirin 81 mg PO DAILY atenolol 12.5 mg PO BID atorvastatin 40 mg PO BEDTIME blood sugar diagnostic (FreeStyle Lite Strips) four times a day blood-glucose meter (FreeStyle Lite Meter kit) As directed blood-glucose sensor (FreeStyle Crystal 3 Sensor device) apply new sensor every 14 days blood-glucose,transition program manager,cont (FreeStyle Crystal 3 Daykin) Use daily to monitor blood glucose levels continuously. [Cane As directed] cholecalciferol (vitamin D3) (Vitamin D3) 125 mcg PO DAILY cyanocobalamin (vitamin B-12) 1,000 mcg PO DAILY docusate sodium 100 mg PO BEDTIME dulaglutide (Trulicity) 4.5 mg subcut MO@0900 fluticasone propion-salmeterol 500-50 mcg/dose (Advair Diskus) 1 inh inhalation BID gabapentin 800 mg PO TID glucose (Dex4 Glucose Quick Dissolve) 16 grams (4 x 4 gram) PO Q15M PRN insulin aspart U-100 (Novolog FlexPen U-100 Insulin aspart) subcutaneously 3 times a day before meals; administer 17 units before breakfast and dinner and 20 units before lunch. insulin degludec (Tresiba FlexTouch U-200 insulin) 52 units (0.26 mL) subcut BEDTIME 30 days insulin syringe-needle U-100 As directed lancets (FreeStyle Lancets) four times a day lidocaine 5% 1 appl topical BID PRN losartan 100 mg PO DAILY montelukast (Singulair) 10 mg PO BEDTIME nicotine 21 mg transdermal DAILY oxycodone 5 mg PO Q6H PRN oxycodone 5 mg PO Q6H PRN pen needle, diabetic (BD Ultra-Fine Janene Pen Needle) As directed four times a day pioglitazone 15 mg PO QAM tramadol 50 mg PO TID PRN umeclidinium 62.5 mcg/actuation (Incruse Ellipta) 1 inh inhalation DAILY zolpidem 10 mg PO BEDTIME PRN HPI Comments Details: This is a 69-year-old female with a past medical history of hypertension, type 2 diabetes, depression, fibromyalgia, moderate persistent asthma, tobacco use, obesity, right thyroid nodule, pulmonary nodules, overactive bladder, recurrent UTI and hyperlipidemia presenting for diabetic management. She is here with her daughter, Kimberly. Interval history 02/10/25 Patient reports a surgery of the right breast, with the 2nd surgery after, this happened about 2 months ago. This is the first time that I see this patient. She is seen today for FNA f/u and T2DM management. She reports eating small quantity, 3 meals, snacks 3 times per day. She does not uses snack. She reports having intermittent episodes of hypoglycemia, especially around noon Type 2 diabetes She was diagnosed around 1996 with type 2 diabetes. Current regimen: Trulicity 4.5 mg weekly, Actos 15 mg, Tresiba U 200 52 units at bedtime and NovoLog 17 units with with breakfast and dinner, and 22 with lunch. Reports sporadic episodes of hypoglycemia Reports lows around 100s- cold, shaky Ophthalmology: Due for exam Microvascular complications: neuropathy, nephropathy (microalbuminuria per previous notes and CKD stage 3 per problem list) Macrovascular complications: question of prior TIA CGM data: Interpretation: Persistent hypoglycemia, with a scattered episode of hypoglycemia, usually around noon time. No clear etiology for the episode of hypoglycemia. Nontoxic single thyroid nodule Patient with history of solitary left-sided thyroid nodule. She underwent FNA on 01/26/2025 In Dec 2023, presented with arm weakness , carotid doppler was done which picked Incidentally noted left nodule isoechoic to the thyroid measuring 3.1 x 2.8 x 3.0 cm . Ultrasound of the thyroid 08/18/2024, Dr. Quintanilla reviewed the images which showed a large left solitary 3.3 cm solid isoechoic TR 3 category nodule. While this is quite low risk appearing with a 5-10% risk of malignancy, based on size would proceed with FNA. Normal TSH from January 2024 at 2.42. Physical exam: General: Well appearing. NAD. Eyes: No conjunctival injection, not lid lag or proptosis CV: RRR, no murmur. No edema. Resp:Lungs clear to auscultation bilaterally Abdomen: Soft, nontender. nondistended Extremities/Neuro: No weakness or tremor of outstretched hands Laboratory Tests 02/03/24 10/18/24 01/21/25 11:35 14:55 11:49 Sodium 140 Potassium 4.6 Creatinine 0.72 Estimated GFR > 60 Calcium 9.2 25-OH Vitamin D Total 14.6 L Microalb/Creat Ratio 171.7 H 20.5 Pathology: FNA 01/27/25 Non-gynecologic Cytology [id number] Name: Torrie Sy Age/Sex: 70/F Attending: Eduarda Quintanilla MD : 1955 Submitted by: Eduarda Quintanilla MD Copies to: Juan R Bey MD MR #: [id number] Status: [facility] REF Collected: 01/26/25 Location: [facility] Received: 01/27/25 Diagnosis Thyroid, left mid lower pole 3.3 cm nodule, fine needle aspiration: Benign ([place] category II). COMMENT: Satisfactory for evaluation; paucicellular specimen. Occasional groups of follicular epithelial cells mostly in a macrofollicular arrangement are seen; no cytologic atypia is present; no colloid is present. Clinical History Left mid lower 3.3cm thyroid nodule FNA biopsy Material Received Left mid lower 3.3cm thyroid nodule FNA biopsy Gross Description Received is 30 cc of bloody tinged cytolyt fluid from which a ThinPrep slide is prepared. NOTE: Unless otherwise stated, all tissue is formalin-fixed and paraffin-embedded. Some or all of the immunohistochemical tests reported herein may have been developed and their performance characteristics determined by [facility]. They have not been cleared or approved by the U.S. Food and Drug Administration (FDA). However, the FDA has determined that such clearance or approval is not necessary. This laboratory is certified under the Clinical Laboratory Improvement Amendments of 1988 (CLIA) as qualified to perform high complexity clinical laboratory testing. [facility] Medical History History of lumbar puncture (04/28/24) Smoker Environmental allergies Seasonal allergies Cough Walker as ambulation aid Invasive ductal carcinoma of right breast in female CVA (cerebral vascular accident) (2008) Osteopenia Screening examination for infectious disease Insulin dependent type 2 diabetes mellitus Elevated C-reactive protein Elevated sed rate Myalgia, upper arm Knee instability Back pain at L4-L5 level Knee pain, right Knee pain, left UTI (urinary tract infection) Proteinuria Hyperlipidemia Lumbar spondylosis Fibromyalgia Syncope COPD (chronic obstructive pulmonary disease) Depression Asthma Type 2 diabetes mellitus with hyperglycemia, with long-term current use of insulin Type 2 diabetes mellitus with chronic kidney disease Chronic kidney disease, stage 3 unspecified Type 2 diabetes mellitus with diabetic polyneuropathy Essential hypertension Surgical History (Updated 02/10/25 @ 13:23 by BALJEET Rincon) History of lumpectomy of right breast (12/29/24) H/O transurethral resection of bladder tumor (TURBT) (03/05/22) Hx of ultrasound guided needle biopsy Hx of mammogram Hx of colonoscopy Hx of oral surgery Hx of tubal ligation Family History Father No problems noted. Mother Heart disease CVD (cardiovascular disease) Diabetes Social History Household Members: Family Housing: Apartment Are you a primary toddler caregiver to a significant other at home: No Do you presently have visiting nurse or other home services: No Alcohol intake: never Comment: counts correct Patient Tobacco Use Status: Current everyday Tobacco user Tobacco use type: Cigarette Cigarette Packs Per Day: 0.5 Female Reproductive History Menstrual Age of Menarche: 11 Physical Exam Vital Signs: Last Vital Signs Pulse 86 02/10/25 12:34 BP 120/76 02/10/25 12:34 Pulse Ox 98 02/10/25 12:34 Oxygen Delivery Method Room Air 02/10/25 12:34 BMI result Body Mass Index 27.0 Office Procedures Glucose Monitoring Details Details: See [facility] [address] - Glucose Monitoring, continuous Procedure code (CPT) selection complete Results Reviewed Results Reviewed: Laboratory Last Values Glucose (Clinic) 208 mg/dL (60-115) H 02/10/25 12:43 Assessment & Plan Assessment & Plan (1) Type 2 diabetes mellitus with diabetic polyneuropathy: Code(s): E11.42 - Type 2 diabetes mellitus with diabetic polyneuropathy Category: Medical Qualifiers: Diabetes mellitus senior living insulin use: with senior living use Qualified Code(s): E11.42 - Type 2 diabetes mellitus with diabetic polyneuropathy; Z79.4 - care home (current) use of insulin Plan: Type 2 diabetes, uncontrolled Patient noted to have persistent hyperglycemia throughout the day, unclear etiology but this could be related to recent stressors, as well as possible medication noncompliance/diet noncompliance as patient reports that she is afraid of having lows. She does report having lows especially at noon, but she is surprised that she has so much hyperglycemia she does not eat a lot per her own report, which her son confirms. I think that the patient would benefit from a more structure scale instead of like having fixed doses of medications, that we will reassure her to use the insulin and do not fear hypoglycemia as much. Plan Educate patient on insulin dosing based on pre-meal glucose levels and meal size using an insulin scale. Ensure regular administration of insulin and avoid meal skipping. Encourage a balanced diet with portion control and carbohydrate moderation. Advised physical activity as tolerated, ideally 170 minutes per week Treat blood glucose <70 mg/dL with 15 g of carbohydrates. Recheck in 15 minutes and repeat treatment if still <70 mg/dL. We will increase Lantus to 60 units daily We will change her short-acting insulin lispro to sliding scale as intubation instruction (2) Thyroid nodule: Code(s): E04.1 - Nontoxic single thyroid nodule Category: Medical Plan: Patient with history of single nontoxic thyroid nodule. She underwent FNA on 01/26/2025 Pathology report benign results. Advised the patient to monitor thyroid nodules with ultrasound in 1 year. Based on the presence or absence of changes in size/volume or nodule characteristics, for the monitoring or FNA would be decided. Plan 65 minutes spent reviewing previous records, labs, imaging, provider notes; and education Orders: Orders AMB Glucose Monitoring Today E11.65 - Type 2 diabetes mellitus with hyperglycemia, Z79.4 - care home (current) use of insulin Patient Instructions: Tresiba 60 unidades diarias Novolog sliding scale Insulin Dose (units) ? Take 10?15 minutes prior to the meal Blood Sugar Level (mg/dl) Small Meal?(low carb <30g like salad, eggs with meat) Normal Meal?(30?60g like sandwich, chips, meat, small starch portion) Large Meal?(>60g like pizza, lasagna, Tu[place]uan food, meal + dessert) <100 2 4 6 101?150 4 6 8 151?200 6 8 10 201?250 8 10 12 251?300 10 12 14 301?350 12 14 16 351?400 14 16 18 >400 16 18 20 Coding Level of Care Code Est Pt Level 5 (89704) Diagnoses Type 2 diabetes mellitus with diabetic polyneuropathy, with long-term current use of insulin E11.42; Z79.4 Diabetes mellitus salvage determiner insulin use: with salvage determiner use Thyroid nodule E04.1 CPT Codes Details - CPT: 13594 - Glucose Monitoring, continuous ([id number])
[2025-02-10 12:47] LABS: Glucose, Whole Blood 208 mg/dL (60-115)
--- OUTSIDE RECORDS SUMMARY | 2025-02-10 15:07 | XMS_ITS | Encounter Summary ---
Author Organization [employer] Address [address] [place] [address] Care Team Providers Care Thermo Cementing Folder Operator Name Role Phone Juan R Blount MD Primary Care Provide r Reason for Visit * Reason Comments Med Refill Encounter Details Date Type Department Care Team ([facility] st Contact Info) Description 04/16/[address] [facility] CHC MED & PEDS [address] [place] [address] Aggie Melendez MD [address] [place] [address] Primary insomnia Social History Tobacco Use Types [...] documented as of this encounter Care Teams Thermo Cementing Folder Operator Relationship Specialty Start Date End Date Juan R Blount MD [address] [place] [address] PCP - General Internal Medicine 12/09/13 [facility] Endocrinology 08/23/24 documented as of this encounter
--- OUTSIDE RECORDS SUMMARY | 2025-02-10 15:07 | XMS_ITS | Encounter Summary ---
Author Organization [employer] Address [address] [facility] [address] [place] [address] Care Team Providers Care Hvac Technician Name Role Phone Juan R Blount MD Primary Care Provide r Reason for Visit * Reason Comments Med Refill Encounter Details Date Type Department Care Team ([facility] st Contact Info) Description 06/27/2023 Refill [facility] CHC MED & PEDS [address] [place] [address] Aggie Guan MD [address] [place] [address] Primary insomnia Social History Tobacco Use Types [...] documented as of this encounter Care Teams Hvac Technician Relationship Specialty Start Date End Date Juan R Blount MD [address] [place] [address] PCP - General Internal Medicine 12/09/13 [facility] Endocrinology 08/23/24 documented as of this encounter
--- OUTSIDE RECORDS SUMMARY | 2025-02-10 15:07 | XMS_ITS | Encounter Summary ---
Author Organization [employer] Address [address] [place] [address] Care Team Providers Care E Commerce Strategist Name Role Phone Juan R Blount MD Primary Care Provide r Reason for Visit * Reason Comments Med Refill Encounter Details Date Type Department Care Team ([facility] st Contact Info) Description 06/27/2023 Refill [facility] CHC MED & PEDS [address] [place] [address] Aggie Guan MD [address] [place] [address] Primary insomnia Social History Tobacco Use Types [...] documented as of this encounter Care Teams E Commerce Strategist Relationship Specialty Start Date End Date Juan R Blount MD [address] [place] [id number] PCP - General Internal Medicine 12/09/13 [facility] Sutton Endocrinology 08/23/24 documented as of this encounter
--- OUTSIDE RECORDS SUMMARY | 2025-02-10 15:07 | XMS_ITS | Encounter Summary ---
Author Organization [employer] Address [address] [place] [address] Care Team Providers Care Loom Checker Name Role Phone Juan R Blount MD Primary Care Provide r Encounter Details Date Type Department Care Team (Late st Contact Info) Description 05/16/2023 Abstract [facility] MEDICINE [address] [place] [address] Juan R Blount MD [address] [place] [address] Social History Tobacco Use Types [...] documented as of this encounter Care Teams Loom Checker Relationship Specialty Start Date End Date Juan R Blount MD [address] [place] [address] PCP - General Internal Medicine 12/09/13 Sh[facility] Sutton Endocrinology 08/23/24 documented as of this encounter
--- OUTSIDE RECORDS SUMMARY | 2025-02-10 15:07 | XMS_ITS | Encounter Summary ---
Author Organization [email or web address] Address [address] [place] [address] Care Team Providers Care Economic Specialist Name Role Phone Juan R Blount MD Primary Care Provide r Reason for Visit * Reason Comments Med Refill Encounter Details Date Type Department Care Team ([facility] st Contact Info) Description 06/17/2024 Refill [facility] MEDICINE [address] [place], [place] [phone] Name, MD Fco [address] [place] [address] Mixed hyperlipidemia Social History Tobacco Use Types [...] documented as of this encounter Care Teams Economic Specialist Relationship Specialty Start Date End Date Juan R Blount MD [address] [place] [address] PCP - General Internal Medicine 12/09/13 Sh[facility] Sutton Endocrinology 08/23/24 documented as of this encounter
--- OUTSIDE RECORDS SUMMARY | 2025-02-10 15:07 | XMS_ITS | Encounter Summary ---
Author Organization [employer] Address [address] [facility] [address] [place] [address] Care Team Providers Care Hydrogen Plant Operator Name Role Phone Juan R Blount MD Primary Care Provide r Encounter Details Date Type Department Care Team (Late st Contact Info) Description 10/29/2022 Abstract [facility] MEDICINE [address] [place], [place] [phone] Juan R Blount MD [address] [place], [place] [phone] Social History Tobacco Use Types Packs/Day Years [...] on filedocumented in this encounter Care Teams Hydrogen Plant Operator Relationship Specialty Start Date End Date Juan R Blount MD [address] [place], [place] [phone] PCP - General Internal Medicine 12/09/13 [facility] Endocrinology 08/23/24 documented as of this encounter
--- OUTSIDE RECORDS SUMMARY | 2025-02-10 15:07 | XMS_ITS | Encounter Summary ---
Author Organization [employer] Address [address] [place] [address] Care Team Providers Care Document Control Manager Name Role Phone Juan R Blount MD Primary Care Provide r Encounter Details Date Type Department Care Team ([facility] st Contact Info) Description 05/16/2022 Orders Only [facility] CHC MED & PEDS [address] [place] [address] Luz Marina Zaragoza LPN Social History Tobacco [...] PM EST Narrative 05/28/2022 4:46 PM EST [facility] [address] [place] [address] Mammography Report Signed Patient: Torrie Sy MR#: [id number] : 1955 Acct:[id number] Age/Sex: 67 / F ADM Date: 05/28/22 Loc: HO.MAMMO Attending Dr: Juan R Bey MD Ordering Physician: Juan R Bey MD Results: 3.6MProbably Benign Finding - Short 6 M F/U Suggested Date of Service: 05/28/22 Follow Up: 6 Month F/U Procedure(s): MM tomosynthesis diagnostic LT Accession Number(s): [id number] cc: Juan R Bey MD EXAMINATION: MM [...] by Reggie Olvera MD in OV> 05/28/22 1641 DD/ 1458 TD/TT: Cloth Bleaching Range Back Tender: SANTOS Procedure Note Donotuseinterpreter, Image - 05/28/2022 [facility] [address] [place] [address] Mammography Report Signed Patient: Torrie SyMR#: [id number] : 5Acct:[id number] Age/Sex: 67 / FADM Date: 05/28/22 Loc: HO.MAMMO Attending Dr: Juan R Bey MD Ordering Physician: Juan R Bey MD Results: 3.6MProbably Benign Finding - Short 6 M F/U Suggested Date of Service: 05/28/22Follow Up: 6 Month F/U Procedure(s): MM tomosynthesis diagnostic LT Accession Number(s): [id number] cc: Juan R Bey MD EXAMINATION: MM [...] in OV> 05/28/22 1643 DD/ 1458 TD/TT: Cloth Bleaching Range Back Tender: SK [facility] External Provider IMG BI PROCEDURES Edited Result - Final documented in this encounter Visit Diagnoses Not on filedocumented in this encounter Care Teams Document Control Manager Relationship Specialty Start Date End Date Juan R Blount MD [address] [place] [address] PCP - General Internal Medicine 12/09/13 [facility] Sutton Endocrinology 08/23/24 documented as of this encounter
--- OUTSIDE RECORDS SUMMARY | 2025-02-10 15:07 | XMS_ITS | Clinical Summary ---
Author Organization [employer] Address [address] [facility] [address] [place] [address] Care Team Providers Care Truck Sales Manager Name Role Phone Juan R Blount MD Primary Care Provide r Allergies Active Allergy Reactions Criticality Noted Date Comments Kurt Inhibitors Cough Acetaminophen Other reaction(s): rash Albuterol Other reaction(s): rash Insulin Other reaction(s): rash Iodine Other reaction(s): rash Latex Other reaction(s): unspecified Medroxyprogesterone Other reaction(s): rash Penicillin V Rash Low 01/07/2024 Medications Continuous Blood Gluc Legal Editor (FreeStyle Crystal 2 Olden) deviceIndication s:Type 2 diabetes mellitus with hyperglycemia, with long-term current use of insulin ([facility]) 1 Device before breakfast, before lunch, and before evening meal. 1 each 023 Active Continuous Blood Gluc Sensor (FreeStyle Crystal 2 Sensor) miscIndications: Type 2 diabetes mellitus with hyperglycemia, with long-term current use of insulin ([facility]) 1 Device before breakfast, [...] hyperglycemia, with long-term current use of insulin ([facility]) TAKE 1 TABLET BY MOUTH EVERY MORNING 90 tablet 3 Active amLODIPine (Norvasc) 5 MG tabletIndication s:Essential hypertension TAKE 1 TABLET BY MOUTH EVERY EVENING 90 tablet Active TRUEplus Lancets 33G miscIndications: Type 2 diabetes mellitus with hyperglycemia ([facility]),long-term (current) use of insulin (CMS/HCC) ([facility]) TEST BLOOD SUGAR FOUR TIMES DAILY 300 each Active glucose blood (FREESTYLE LITE) test stripIndications :Type 2 diabetes mellitus with hyperglycemia (HCC),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 ([facility]) ([facility]) TEST BLOOD SUGAR FOUR TIMES DAILY 300 strip Active clotrimazole (Lotrimin) 1 % cream APPLY TOPICALLY TWICE DAILY FOR 28 DAYS 30 g 5 Active Dulaglutide 4.5 MG/0.5ML solution auto-injectorInd ications:Type 2 diabetes mellitus with hyperglycemia, with long-term current use of insulin ([facility]) Inject 4.5 mg under [...] complication, with long-term current use of insulin ([facility]) USE DIRECTED FOUR TIMES DAILY 100 each 5 025 Active Incruse Ellipta 62.5 MCG/ACT aerosol powderIndication s:Wheeze INHALE 1 PUFF BY MOUTH EVERY DAY AT THE SAME TIME RINSE MOUTH AFTER USING 30 each 1 025 Active gabapentin (Neurontin) 800 MG tabletIndication s:Type 2 diabetes mellitus with hyperglycemia, with long-term current use of insulin ([facility]) TAKE 1 TABLET BY MOUTH THREE TIMES DAILY IN THE MORNING, AT NOON, AND IN THE EVENING 90 tablet 2 025 Active zolpidem (Ambien) 10 MG tabletIndication s:Primary insomnia TAKE 1 TABLET BY MOUTH AT BEDTIME NEEDED FOR SLEEP 30 tablet 025 Active gabapentin (Neurontin) 800 MG tabletIndication s:Type 2 diabetes mellitus with hyperglycemia, with long-term current use of insulin ([facility]) TAKE 1 CAPSULE BY MOUTH THREE TIMES DAILY IN THE MORNING, AT NOON, AND IN THE EVENING 90 tablet 2 025 2024 Discontinued Umeclidinium [place] (Incruse Ellipta) 62.5 MCG/ACT aerosol powderIndication s:Wheeze [...] diabetic and a smoker. Seen by Vegetable Harvest Machine Operator Dr Sarmiento 10/20/2024 He ordered an ECHO [...] rare follicular cells seen in the sample, Sabetha category 1. She discussed with the patient that nondiagnostic results yield a 5-20% risk of malignancy. At this point the plan is to repeat the biopsy in about 3 months. 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 She underwent right breast lumpectomy with localizer and sentinel node biopsy on 12/29/2024. She subsequently returned to the OR on 01/13/2025 for wider excision due to positive margins for DCIS. Follow up pathology revealed no residual DCIS (pT1c N0(sn)(i-)). I Seen by Dr Guajardo 01/21/2025. He stated that no further surgical intervention was required at this time. She will follow up with Dr. Dennis, pt was to discuss possible adjuvant treatments. She was seen 01/21/2025 and has a follow up on02/14/2025 Dr. hodge asked her to return approximately 1 month for wound examination. Assessment & Plan (12/23/2024 3:57 PM EDT): [...] the ER MRI Brain 12/28/2023 negative at [facility] Etiology ? Neuropathy, Lumbar radiculopathy Pt also [...] requested from Neurology She was seen at [facility] 08/2024 and was supposed to [...] Pt is now under the care of Electrodynamicist Dr Holm last seen 05/11/2019 He ordered [...] use of insulin 06/11/2012 Assessment & Plan (01/25/2025 1:09 PM EDT): Pt here for a f/u DM better controlled Back under the care of Endocrinology last seen 12/14/2024, has a follow up 02/09/2025 She is on a regimen of: Tresiba 52 units nightly. Novolog 17 units before breakfast and dinner and 20 units before lunch due to hyperglycemia in the afternoon. Administer 5-10 minutes prior to meals. Trulicity 4.5 mg weekly and Actos 15 mg daily. She is Off Metformin due to worsening renal function Hgb A1c 01/25/2025: 9 Eye exam was last done on: 08/2022 [facility] No retinopathy Microalbumin checked on: 10/18/2024 was: 28 Pt is on an ARB. Foot check not done Pt reports compliance with Asa 81 mg po daily Pt advised to: adhere to diabetic diet check your blood sugars regularly check your feet on a daily basis Assessment & Plan (12/23/2024 2:06 PM EDT): [...] Eye exam was last done on: 08/2022 [facility] No retinopathy Microalbumin checked on: [...] Eye exam was last done on: 08/2022 [facility] No retinopathy Microalbumin checked on: [...] basis Depressive disorder 06/11/2012 Assessment & Plan (01/25/2025 1:41 PM EDT): Pt here for a f/u Following with a psychotherapist On a regimen of Ambien 10mg po qhs prescribed by me Patient denies any suicidal ideation or thoughts, Patient has crisis numbers and knows to use them if needed Assessment & Plan (11/19/2022 9:53 AM EDT): Pt here for a f/u Is seeing a psychotherapist Sims On a regimen of Ambien 10mg po qhs prescribed by me Patient denies any suicidal ideation or thoughts, Patient has crisis numbers and knows to use them if needed Encounters Date Type Department Care Team Description 02/10/2025 Orders Only GENERIC EXTERNAL DATA DEPARTMENT Provider, Generic External Data 02/03/2025 Telephone [facility] [address] [place] [address] Juan R Blount MD Prior Authorization 01/26/2025 Orders Only GENERIC EXTERNAL DATA DEPARTMENT Provider, Generic External Data 01/25/2025 1:00 PM EDT Office Visit [facility] [address] [place] [address] Juan R Blount MD Malignant neoplasm of right female breast, unspecified estrogen receptor status, unspecified site of breast (CMS/HCC) (HCC) (Primary Dx); Type 2 diabetes mellitus with diabetic polyneuropathy, with long-term current use of insulin (HCC); Depressive disorder 01/25/2025 Travel 2025 Telephone [facility] [address] [place] [address] Juan R Blount MD chart prep 01/21/2025 Orders Only GENERIC EXTERNAL DATA DEPARTMENT Provider, Generic External Data 01/20/2025 Refill [facility] [address] [place] [address] Juan R Blount MD Primary insomnia 01/18/2025 Patient Outreach [facility] [address] [place] [address] Juan R Blount MD Pre-visit Planning ((Unable to reach for PVP screening, LVM) to be completed in office ) 01/18/2025 Refill [facility] [address] [place] [address] Juan R Blount MD Type 2 diabetes mellitus with hyperglycemia, with long-term current use of insulin ([facility]) 01/15/2025 Refill [facility] [address] [place] [address] Juan R Blount MD Wheeze 01/13/2025 Orders Only GENERIC EXTERNAL DATA DEPARTMENT Provider, Generic External Data 01/13/2025 Refill [facility] [address] [place] [address] Juan R Blount MD Type 2 diabetes mellitus with hyperglycemia, with long-term current use of insulin ([facility]) 01/11/2025 Orders Only GENERIC EXTERNAL DATA DEPARTMENT Provider, Generic External Data 01/08/2025 Refill [facility] [address] [place] [address] Juan R Blount MD Type 2 diabetes mellitus without complication, with long-term current use of insulin ([facility]) 12/29/2024 Orders Only GENERIC EXTERNAL DATA DEPARTMENT Provider, Generic External Data 12/27/2024 Refill [facility] [address] [place], [place] [phone] Aggie Guan MD Primary insomnia 12/24/2024 Telephone [facility] [address] [facility] [place] [address] Juliana Goode, [facility] Neurology 12/23/2024 1:15 PM EDT Office Visit [facility] [address] [place] [address] Juan R Blount MD Type 2 diabetes mellitus with diabetic polyneuropathy, with long-term current use of insulin ([facility]) (Primary Dx); Right thyroid nodule; Abnormal ECG; Malignant neoplasm of right female breast, unspecified estrogen receptor status, unspecified site of breast (CMS/HCC); Polyneuropathy associated with underlying disease ([facility]/HCC); Chronic midline low back pain without sciatica; Neck pain on right side; Preventative health care 12/23/2024 Travel 12/21/2024 Refill [facility] [address] [place] [address] Juan R Blount MD Wheeze 12/17/2024 Refill [facility] [address] [place] [address] Juan R Blount MD Asthma, unspecified asthma severity, unspecified whether complicated, unspecified whether persistent 12/14/2024 Orders Only GENERIC EXTERNAL DATA DEPARTMENT Provider, Generic External Data 12/09/2024 Refill [facility] [address] [place] [address] Juan R Blount MD Mixed hyperlipidemia; Wheezing 12/02/2024 Telephone [facility] [address] [facility] [place] [address] Juan R Blount MD [facility] QUESTIONS 11/12/2024 Refill [facility] [address] [place] [address] Juan R Blount MD Primary insomnia 11/10/2024 Orders Only GENERIC EXTERNAL DATA DEPARTMENT Provider, Generic External Data 11/10/2024 Refill [facility] [address] [place] [address] Juan R Blount MD Essential hypertension from Last 3 Months Immunizations Immunization Administration Dates Next Due Pfizer Covid-19 Vaccine 12+ Bivalent 04/29/2022 Pfizer Covid-19 Vaccine 12+ juan-sucrose (Murguia Cap) 12/11/2021,07/11/2021,06/20/2021 Pneumococcal Polysaccharide PPSV23 02/16/2003 TD (adult), 2 [...] Answer Date Recorded Patient Health Questionnaire-9 Score 5 01/25/2025 Patient Health Questionnaire-9 Score 5 01/25/2025 Last PHQ-9: Questionnaire Data Not on file 1 Housing Stability Answer Date Recorded What is your housing situation today? I have oliver romero 01/25/[address] you li ve. Do you have problems with any of the following? None of the above 01/25/2025 Food Insecurity Answer Date Recorded Within the past 12 months, y ou worried that your food would run out before you got money to buy more: Never True 01/25/2025 Within the past 12 months,th e food you bought just didn't last and you didn't have enough money to get more: Never True 10/2024 Transportation Answer Date Recorded In the past 12 months, has l ack of transportation kept you from medical appts, meetings, work or from getting things needed for daily living? No 01/25/2025 Utilities Answer Date Recorded In the past 12 months, has t he electric, gas, oil or water company threatened to shut off services in your home? No 01/25/2025 Depression Answer Date Recorded Patient Health Questionnaire-2 Score 1 01/25/2025 Internet Access Answer Date Recorded Internet Access Q1 Yes 01/25/2025 Internet Access Q2 Not on file 01/25/2025 Comments No Sex and Gender Information Value Date Recorded Sex Assigned at Female 02/18/2022 10:15 AM EDT Legal Sex Female 10:15 AM EDT Gender Identity Female 02/18/2022 10:15 AM EDT Sexual Orientation Straight 02/18/2022 10 :15 AM EDT Last Filed Vital Signs Vital Sign Reading Time Taken Comments Blood Pressure 138/80 01/25/2025 1:14 PM EDT Pulse 86 01/25/2025 12:57 PM EDT Temperature 37.3 C (99.1 F) 01/25/2025 12:57 PM EDT Respiratory Rate 20 01/25/2025 12:57 PM EDT Oxygen Saturation 97% 01/25/2025 12:57 PM EDT Inhaled Oxygen Concentration - - Weight 75.6 kg (166 lb 9.6 oz) 01/25/2025 12:57 PM EDT Height 167.6 cm (5' 6 ) 01/25/2025 12:57 PM EDT Body Mass Index 26.89 01/25/2025 12:57 PM EDT Plan of Treatment Health Maintenance [...] Influenza Vaccine (#1) 2024 Diabetes: Hemoglobin A1C 04/27/2025 025, 10/12/2024, 01/15/2024, Additional history exists Diagnostic Breast Imaging 06/26/20252024, 09/01/2024, 09/01/2024, Additional history exists Mammogram 06/26/2025 12/27/2024, 08/19, 09/01/2024, Additional history exists Alcohol/Substance Use Screening 10/12/2025 10/12/2024 Diabetes: Urine Protein Screening 10/18/2025 10/18/2024, 02/03/2024, 07/24/2021, Additional history exists Lipid Panel 10/18/2025 10/18/2024, 04/0 08/2021, 07/07/2020 Depression Screening 01/25/2026 01/25/2025, 01/26/20 25 SDOH Screening 01/25/2026 01/25/2025 Tobacco Screening 01/25/2026 01/25/2025 Hepatitis C Screening Completed 02/05/2024 HIB Vaccines [...] Associated Diagnosis Comments GLUCOSE, WHOLE BLOOD Routine 02/10/2025 12:43 PM EDT FINE NEEDLE ASPIRATION Routine 11:13 AM EDT POCT GLYCATED HEMOGLOBIN, TOTAL Routine 01/25/2025 1:07 PM EDT Type 2 diabetes mellitus with diabetic polyneuropathy, with long-term current use of insulin (HCC) CANCER ANTIGEN 27.29 Routine 01/21/2025 11:49 AM EDT VITAMIN D,25-OH,TOTAL,IA Routine 01/21/2025 11:49 AM EDT COMPREHENSIVE METABOLIC PANEL Routine 01/21/2025 11:49 AM EDT CBC WITH AUTO DIFFERENTIAL Routine 01/21/2025 11:49 AM EDT GROSS AND MICROSCOPIC LEVEL 5 Routine 01/13/2025 [...] URINE W/CREATININE Routine 10/18/2024 2:55 PM EDT HEPATITIS PANEL, GENERAL Routine 02/05/2024 9:25 AM EDT from Last 3 Months or Most Recently Relevant to Health Maintenance Results * (ABNORMAL) Glucose, Whole Blood (02/10/2025 12:43 PM EDT) Only the most recent of2 resultswithin the time period is included. Glucose, Whole Blood 208(H) 60 - 115 mg/dL [facility] Comment:METER #: [id number] Testing performed in the Endocrinology Department [address] , [address], [facility]. 02/10/2025 12:4 3 PM EDT 02/10/2025 12:47 PM EDT us Generic External Data Provider LAB BLOOD ORDERAB LES Final Result Performing Organization Address City/State/[facility] Co de Phone Number [facility] [address] [place] [phone] * Fine needle aspiration (01/26/2025 11:13 AM EDT) 01/26/2025 11:1 3 AM EDT 01/27/2025 9:06 AM EDT Narrative [facility] - 01/28/2025 8:12 AM EDT ----- ------- Name: Torrie Sy Age/Sex: 70/F : 1955 Unit#: [id number] Attend Dr: Eduarda Quintanilla MD Re01/26/25 Status: DEP REF Location: [facility] Disch: ----- ------- SPEC : [id number] RECD: 01/27/25 STATUS: AMY WEBSTER NUM: [id number] [place]: 01/26/25 [facility] DR: Eduarda Quintanilla MD ENTERED: 01/27/25 SP TYPE: Cytology OTHR DR: Juan R Bey MD ORDERED: Fine Ndl Asp Diagnosis Thyroid, left mid lower pole 3.3 cm nodule, fine needle aspiration: Benign (Sabetha category II). COMMENT: Satisfactory for evaluation; paucicellular specimen. Occasional groups of follicular epithelial cells mostly in a macrofollicular arrangement are seen; no cytologic atypia is present; no colloid is present. Clinical History Left mid lower 3.3cm thyroid nodule FNA biopsy Material Received Left mid lower 3.3cm thyroid nodule FNA biopsy Gross Description Received is 30 cc of bloody tinged cytolyt fluid from which a ThinPrep slide is prepared. IHC S/NG Disclaimer NOTE: Unless otherwise stated, all tissue is formalin-fixed and paraffin-embedded. Some or all of the immunohistochemical tests reported herein may have been developed and their performance characteristics determined by [facility]. They have not been cleared or approved by the U.S. Food and Drug Administration (FDA). However, the FDA has determined that such clearance or approval is not necessary. This laboratory is certified under the Clinical Laboratory Improvement Amendments of 1988 (CLIA) as qualified to perform high complexity clinical laboratory testing. Copies To: Juan R Bey MD [address] [address] Eduarda Quintanilla MD [facility] Endocrinology [address] [place] [address] [email or web address] System CONTINUED ON NEXT PAGE ----- ------- Name: Torrie Sy Age/Sex: 70/F : 1955 Unit#: [id number] Attend Dr: Eduarda Quintanilla MD Re01/26/25 Status: DEP REF Location: [facility] Disch: ----- ------- SPEC : [id number] RECD: 01/27/25 STATUS: AMY WEBSTER NUM: [id number] [place]: 01/26/25 [facility] DR: Eduarda Quintanilla MD ENTERED: 01/27/25 SP TYPE: Cytology OTHR DR: Juan R Bey MD ORDERED: Maria Del Carmen Tomlinson Asp ----- ------- Signed (signature on file) Juan Blunt MD 01/28/25811 ----- ------- END OF REPORT Generic External Data Provider LAB CYTOLOGY STEVAN PEREZ Final Result [facility] [address] [place] [address] [phone] * (ABNORMAL) POCT Hgb A1c (01/25/2025 1:07 PM EDT) Hemoglobin A1C 9.0(A) 4.0 - 5.7 % QC Media Lot # [id number] Lot# Expiration Date [id number] Blood 01/25/2025 1:07 PM EDT Juan R Vega MD POINT OF CARE TEST EN TER/EDIT ORDERABLES Final Result * (ABNORMAL) Vitamin D, 25-Hydroxy, Total, Immunoassay (01/21/2025 11:49 AM EDT) Vitamin D 25-OH Total 14.6(L) >30 ng/mL [facility] Comment: Health Based Reference Values*< 20 ng/mL Qchivzfhf27-19 ng/mL Insufficient> 30 ng/mL Sufficient*Heena LUNDBERG. N Engl J Med. 2007;357:266-280There is no well-established upper level of normal vitamin Dlevels. Some laboratories use 50 ng/mL as an upper limit ofnormal. However, toxicity is patient-dependent and may occurat any level. Careful correlation with the patient'spresentation is necessary and, if there is concern forvitamin D toxicity, treatment should be consideredirrespective of the serum level.Care must be taken in interpreting Vitamin D results fromdifferent laboratories and methodologies. Published datademonstrated that results from patients undergoinghemodialysis may show a negative bias when tested withvarious automated 25-OH vitamin D assays when compared toLC-MS/MS.When testing samples from patients whose predominant form ofVitamin D is Vitamin D2, such as patients receiving VitaminD2 supplementation, results that are subtherapeutic shouldbe confirmed with another method such as LC-MS/MS. 01/21/2025 11:4 9 AM EDT 01/21/2025 11:49 AM EDT us Generic External Data Provider LAB BLOOD ORDERAB LES Final Result [facility] [address] [place] [phone] [phone] * (ABNORMAL) CBC auto differential (01/21/2025 11:49 AM EDT) White Blood Count 12.9(H) 4.8 - 10.8 X10*3/uL [facility] Red Blood Count 3.87(L) 4.20 - 5.50 X10*6/uL [facility] Hemoglobin 11.6(L) 12.0 - 16.0 g/dl [facility] Hematocrit 35.4(L) 37.0 - 47.0 % [facility] Mean Corpuscular Volume 91.5 80.0 - 98.0 fL [facility] Mean Corpuscular Hemoglobin 30.0 27.0 - 33.0 pg [facility] Mean Corpuscular HGB Conc 32.8 31.0 - 35.0 g/dl [facility] Red Cell Distribution Width 13.4 11.0 - 16.0 % [facility] Platelet Count 371 160 - 400 X10*3/uL [facility] Mean Platelet Volume 10.2 9.4 - 12.3 fL [facility] Neutrophils Percent Auto 75.3(H) 45 - 73 % [facility] Imm Gran Pct Auto 0.5(H) 0.0 - 0.4 % [facility] Lymphocytes Percent Auto 17.9(L) 20 - 40 % [facility] Monocytes Percent Auto 4.1 2 - 11 % [facility] Eosinophils Percent Auto 1.2 0 - 4 % [facility] Basophils Percent Auto 1.0 0 - 2 % [facility] NRBC Pct Auto 0.0 0.0 - 0.2 /100WBC [facility] Neutrophils Absolute Auto 9.7(H) 2.0 - 8.3 x10*3/uL [facility] Imm Gran Abs Auto 0.07(H) 0.00 - 0.03 X10*3/uL [facility] Lymphocytes Absolute Auto 2.3 1.2 - 4.9 X10*3/uL [facility] Monocytes Absolute Auto 0.5 0.1 - 1.2 X10*3/uL [facility] Eosinophils Absolute Auto 0.2 0.0 - 0.4 X10*3/uL [facility] Basophils Absolute Auto 0.1 0.0 - 0.2 X10*3/uL [facility] NRBC Abs Auto 0.000 0.0 - 0.012 X10*3/uL [facility] 01/21/2025 11:4 9 AM EDT 01/21/2025 11:49 AM EDT Generic External Data Provider LAB BLOOD ORDERAB LES Final Result Performing Organization Address [facility] de Phone Number [facility] [address] [place] [phone] * Cancer antigen 27.29 (01/21/2025 11:49 AM EDT) CA 27.29 29 <38 U/mL [facility] Comment:This test was perfor med using the SiemensChemiluminescent method. Values obtained fromdifferent assay methods cannot be usedinterchangeably. CA 27.29 levels, regardless ofvalue, should not be interpreted as absoluteevidence of the presence or absence of disease.THIS TEST WAS PERFORMED AT:[facility] [place] [id number] DEVRIES MD 01/21/2025 11:4 9 AM EDT 01/21/2025 11:49 AM EDT us Generic External Data Provider LAB BLOOD ORDERAB LES Final Result Performing Organization Address [facility]/ZIP Co de Phone Number [facility] [address] [place] [phone] * (ABNORMAL) Comprehensive Metabolic Panel (01/21/2025 11:49 AM EDT) Sodium 140 135 - 145 mmol/L [facility] Potassium 4.6 3.3 - 5.1 mmol/L [facility] Chloride 105 96 - 108 mmol/L [facility] Carbon Dioxide 27 22 - 29 mmol/L [facility] Anion Gap 13 12 - 20 [facility] Urea Nitrogen (BUN) 13 9 - 16 mg/dL [facility] Creatinine, Serum 0.72 0.5 - 1.4 mg/dL [facility] Creatinine Clr Calc Pharmacy TNP [facility] Comment:Unable to calculate eCrCL; all parameters not provided. Estimated Glomerular Filt Rate >60 [facility] Comment:Chronic Kidney Disea se: Estimated GFR < 60 mL/min/1.82k4Izohbn Kidney Disease: Estimated GFR < 15 mL/min/1.73m2 Glucose 218(H) 60 - 115 mg/dL [facility] Calcium 9.2 8.4 - 10.2 mg/dL [facility] Bilirubin, Total 0.5 0.0 - 1.0 mg/dL [facility] Aspartate Amino Transferase 14 5 - 31 U/L [facility] Alanine Aminotransferase <6 0 - 31 U/L [facility] Total Protein 7.0 6.5 - 8.0 g/dL [facility] Albumin Level 4.0 3.5 - 5.0 g/dL [facility] Alkaline Phosphatase 121(H) 39 - 117 U/L [facility] 01/21/2025 11:4 9 AM EDT 01/21/2025 11:49 AM EDT us Generic External Data Provider LAB BLOOD ORDERAB LES Final Result [facility] [address] [place] [phone] * Gross and Microscopic Level 5 (01/13/2025 1:28 PM EDT) 01/13/2025 1:28 PM EDT 01/13/2025 2:55 PM EDT [facility] - 01/18/2025 10:35 AM EDT ----- ------- Name: Torrie Sy Age/Sex: 69/F [facility] 1955 [id number]#: [id number] Attend Dr: George Bearden MD Re01/13/25 Status: [facility] [facility] Location: [facility] Disch: ----- ------- SPEC : [id number] RECD: 01/13/25-145 STATUS: AMY WEBSTER NUM: [id number] HAILEY: 01/13/25-1328 [facility] DR: George Bearden MD ENTERED: 01/13/25-1517 SP [...] fat necrosis, without evidence of definitive lesion. Interactive Digital Media Specialist sections are submitted sequentially from superior to inferior in cassettes A1 -10, to include A1 superior margin perpendicular and A10 inferior margin perpendicular. (DTL) This case was reviewed intradepartmentally. IHC S/NG Disclaimer NOTE: Unless otherwise stated, all tissue is formalin-fixed and paraffin-embedded. Some or all of the immunohistochemical tests reported herein may have been developed and their performance characteristics determined by [facility]. They have not been cleared [...] Torrie Sy Age/Sex: 69/F : 1955 Unit#: [id number] Attend Dr: George Bearden MD Re01/13/25 Status: [facility] Location: [facility] Disch: ----- ------- SPEC : [id number] RECD: 01/13/25 STATUS: AMY WEBSTER NUM: [id number] HAILEY: 01/13/25-[address]: George Bearden MD ENTERED: 01/13/25-151 SP TYPE: Surgical OTHR DR: Juan R Bey MD ORDERED: Gross Micro L5 Copies To: Juan R Bey MD [address] [address] George Bearden MD [facility] Surgeons [address] [place] [phone] ----- ------- Signed (signature on file) Anna Talley 01/18/25 1035 ----- ------- END OF REPORT us Generic External Data Provider LAB BLOOD ORDERAB LES Final Result [facility] [address] [place] [address] [phone] * Pathology Report (01/11/2025 3:53 PM EDT) 01/11/2025 3:53 PM EDT 01/13/2025 8:35 AM EDT [facility] - 01/17/2025 2:02 PM EDT ----- ------- Name: Torrie Sy Age/Sex: 69/F : 1955 Unit#: [id number] Attend Dr: George Bearden MD Re12/27/24 Status: DEP REF Location: [facility] Disch: ----- ------- SPEC : [id number] RECD: 01/13/25 STATUS: AMY WEBSTER NUM: [id number] HAILEY: 01/11/251553 [facility] DR: George Bearden MD ENTERED: 01/13/25 SP TYPE: Surgical OTHR DR: Juan R Bey MD ORDERED: Consult. refer. Diagnosis A. Breast, right, asymmetry with calcifications, 9:00, 7 cm from nipple, core biopsy (consult slides from [facility], Surgical Pathology Service #[id number]): -Invasive ductal carcinoma with lobular features, MSBR grade 1. -Focus suspicious for ductal carcinoma in situ. B. Breast, right, asymmetry tissue, 9:00, 7 cm from nipple, core biopsy (consult slides from [facility], Surgical Pathology Service #[id number]): -Invasive ductal carcinoma with lobular features, MSBR grade 1. -Ductal carcinoma in situ, nuclear grade 1, with focal calcifications. Synoptic report Procedure: Core biopsy Specimen laterality: Right Histologic type: Invasive ductal carcinoma with lobular features. Histologic grade ([place]/MSBR histologic score): 1 - Glandular/tubular differentiation: Score: [...] Torrie Sy Age/Sex: 69/F : 1955 Unit#: [id number] Attend Dr: George Bearden MD Re12/27/24 Status: DEP REF Location: [facility] Disch: ----- ------- SPEC : [id number] RECD: 01/13/25 STATUS: AMY WEBSTER NUM: [id number] HAILEY: 01/11/251553 [facility] DR: George Bearden MD ENTERED: 01/13/25 SP [...] consult Gross Description Received for consultation from [facility], [place], [place] are 9 slides labeled with the patient's name, date of , and [id number] (4 H E (A1-1, A1-3, B1- 1, B1-3) and 5 IHC (B1-4 ER, B1-5 ME, B1-6 [id number], B1-7 E-CAD, B1-8 B-CATN)). Also received is a copy of the pathology report with a collection date of 09/23/2024. JGD Note: ER and ME immunostains are scored as Positive (> or [...] less than 10% of the tumor. See [facility] report for staining method. IHC S/NG Disclaimer NOTE: Unless otherwise stated, all tissue is formalin-fixed and paraffin-embedded. Some or all of the immunohistochemical tests reported herein may have been developed and their performance characteristics determined by [facility]. They have not been cleared [...] Torrie Sy Age/Sex: 69/F : 1955 Unit#: [id number] Attend Dr: George Bearden MD Re12/27/24 Status: DEP REF Location: [place] Disch: ----- ------- SPEC : [id number] RECD: 01/13/25 STATUS: AMY ELEANOR NUM: [id number] HAILEY: 01/11/25-1553 [facility] DR: George Bearden MD ENTERED: 01/13/25 SP TYPE: Surgical OTHR DR: Juan R Bey MD ORDERED: Consult. refer. Copies To: Juan R Bey MD [address] [address] George Bearden MD [facility] [address] [place] [address] [phone] ----- ------- Signed (signature on file) Anna Mayank 01/17/25 1402 ----- ------- END OF REPORT Generic External Data Provider HISTORICAL/NON OR DERABLE LABS Final Result [facility] [address] [place] [address] [phone] * Hematoxylin and Eosin Stain (12/29/2024 12:49 PM EDT) 12/29/2024 12:4 9 PM EDT 12/29/2024 12:59 PM EDT Narrative [facility] - 01/18/2025 11:08 AM EDT ----- ------- Name: Torrie Sy Age/Sex: 69/F : 1955 Unit#: [id number] Attend Dr: George Bearden MD Re12/29/24 Status: [facility] Location: [facility] Disch: ----- ------- SPEC : [id number] RECD: 12/29/24 STATUS: AMY WEBSTER NUM: [id number] HAILEY: 12/29/[address]: George Bearden MD ENTERED: 12/29/24-130 SP TYPE: Surgical OTHR DR: Juan R Bey MD ORDERED: HE Stain/6, Gross Micro L3, Gross Micro L5/5, Cytokeratin/6, ER/4, ME, IOC, IHC/5, Add. immunos/3, IHC ER/ME/Her2N/4, CK5-6/4, E-cadherin, Ki-67, [id number] COMMENTS: Cassettes A1-A10 are placed in formalin at 1327. Addendum Addendum 1 Entered: 01/18/25-1107 (A): Clip Interactive HER2 FISH analysis: Result: Negative Interpretation: HER2 [...] section. Addendum Signed (signature on file) Anna Talley 01/18/25 1108 ----- ------- Diagnosis A. Breast, [...] Torrie Sy Age/Sex: 69/F : 1955 Unit#: [id number] Attend Dr: George Bearden MD Re12/29/24 Status: [facility] Location: [facility] Disch: ----- ------- SPEC : [id number] RECD: 12/29/24 STATUS: AMY WEBSTER NUM: [id number] HAILEY: 12/29/24 [facility] DR: George Bearden MD ENTERED: 12/29/24-1304 SP TYPE: Surgical OTHR DR: Juan R Bey MD ORDERED: HE Stain/6, Gross Micro L3, Gross Micro L5/5, Cytokeratin/6, ER/4, ME, IOC, IHC/5, Add. immunos/3, IHC ER/ME/Her2N/4, CK5-6/4, E-cadherin, Ki-67, [id number] COMMENTS: Cassettes A1-A10 are placed in formalin [...] Torrie Sy Age/Sex: 69/F : 1955 Unit#: [id number] Attend Dr: George Bearden MD Re12/29/24 Status: [facility] Location: [facility] Disch: ----- ------- SPEC : [id number] RECD: 12/29/24-1258 STATUS: AMY WEBSTER NUM: [id number] HAILEY: 12/29/24-1249 [facility] DR: George Bearden MD ENTERED: 12/29/24-1303 SP TYPE: Surgical OTHR DR: Juan R Bey MD ORDERED: HE Stain/6, Gross Micro L3, Gross Micro L5/5, Cytokeratin/6, ER/4, ME, IOC, IHC/5, Add. immunos/3, IHC ER/ME/Her2N/4, CK5-6/4, E-cadherin, Ki-67, [id number] COMMENTS: Cassettes A1-A10 are placed in formalin at 1327. Diagnosis (Continued) [place] nodes: 3 Axillary nodes: 0 Number involved: [...] Torrie Sy Age/Sex: 69/F : 1955 Unit#: [id number] Attend Dr: George Bearden MD Re12/29/24 Status: [facility] Location: [facility] Disch: ----- ------- SPEC : [id number] RECD: 12/29/24 STATUS: AMY WEBSTER NUM: [id number] HAILEY: 12/29/24 [facility] DR: George Bearden MD ENTERED: 12/29/245350 SP TYPE: Surgical OTHR DR: Juan R Bey MD ORDERED: HE Stain/6, Gross Micro L3, Gross Micro L5/5, Cytokeratin/6, ER/4, ME, IOC, IHC/5, Add. immunos/3, IHC ER/ME/Her2N/4, CK5-6/4, E-cadherin, Ki-67, [id number] COMMENTS: Cassettes A1-A10 are placed in formalin at 1327. Material Received A. Right breast lumpectomy B. Bridgeton node #1, count 1497 C. Additional axillary tissue D. Bridgeton node #2, count 273 E. [place] node #3, count 204 F. Anterior inferior [...] other cysts, lesions or nodules are identified. Interactive Digital Media Specialist sections are submitted in cassettes A1-A10 from [...] Torrie Sy Age/Sex: 69/F : 1955 Unit#: [id number] Attend Dr: George Bearden MD Re12/29/24 Status: [facility] Location: [facility] Disch: ----- ------- SPEC : [id number] RECD: 12/29/24 STATUS: AMY WEBSTER NUM: [id number] HAILEY: 12/29/24-1248 [facility] DR: George Bearden MD ENTERED: 12/29/241308 SP TYPE: Surgical OTHR DR: Juan R Bey MD ORDERED: HE Stain/6, Gross Micro L3, Gross Micro L5/5, Cytokeratin/6, ER/4, ME, IOC, IHC/5, Add. immunos/3, IHC ER/ME/Her2N/4, CK5-6/4, E-cadherin, Ki-67, [id number] COMMENTS: Cassettes A1-A10 are placed in formalin [...] lobular fat. No lymph nodes are identified. Interactive Digital Media Specialist sections are submitted in a cassette labeled [...] micronodular focus along the prior biopsy side. Interactive Digital Media Specialist sections perpendicular to the anterior-inferior margins are submitted in cassettes F1-F10, from medial to lateral, respectively. CEDS Interpretive Information CONTINUED ON NEXT PAGE ----- ------- Name: Torrie Sy Age/Sex: 69/F : 1955 Unit#: [id number] Attend Dr: George Bearden MD Re12/29/24 Status: [facility] Location: [facility] Disch: ----- ------- SPEC : [id number] RECD: 12/29/24 STATUS: AMY WEBSTER NUM: [id number] HAILEY: 12/29/24 [facility] DR: George Bearden MD ENTERED: 12/29/241235 SP TYPE: Surgical OTHR DR: Juan R Bey MD ORDERED: HE Stain/6, Gross Micro L3, Gross Micro L5/5, Cytokeratin/6, ER/4, ME, IOC, IHC/5, Add. immunos/3, IHC ER/ME/Her2N/4, CK5-6/4, E-cadherin, Ki-67, [id number] COMMENTS: Cassettes A1-A10 are placed in formalin at 1327. Gross Description (Continued) All tests are performed on formalin-fixed, paraffin-embedded tissue using automated immunostain methods: Estrogen receptor: Clone SP1; [place]on CONFIRM ultraView Mcroberts DAB Progesterone receptor: Clone 1E2; [place] CONFIRM ultraView [place]ro[place]ts DAB HER2: FDA-approved [place] PATHWAY anti-HER-2/gail (4B5) Monoclonal; ultraView Mcroberts DAB Positive and negative controls are performed [...] high complexity clinical laboratory testing. References: Marie KH, Roosevelt ME, et al. Estrogen and Progesterone Receptor Testing in Breast Cancer: [place] Society of Clinical Oncology/College of [place] Pathologists Guideline Update. Arch of Pathol Lab Med. 2020; 144(5): 545-563. CONTINUED ON NEXT PAGE ----- ------- Name: Torrie Sy Age/Sex: 69/F : 1955 Unit#: [id number] Attend Dr: George Bearden MD Re12/29/24 Status: [facility] Location: [facility] Disch: ----- ------- SPEC : [id number] RECD: 12/29/24 STATUS: AMY WEBSTER NUM: [id number] HAILEY: 12/29/24 [facility] DR: George Bearden MD ENTERED: 12/29/24 SP TYPE: Surgical OTHR DR: Juan R Bey MD ORDERED: HE Stain/6, Gross Micro L3, Gross Micro L5/5, Cytokeratin/6, ER/4, ME, IOC, IHC/5, Add. immunos/3, IHC ER/ME/Her2N/4, CK5-6/4, E-cadherin, Ki-67, [id number] COMMENTS: Cassettes A1-A10 are placed in formalin at 1327. Gross Description (Continued) Arely AC, Roosevelt MAYESH, Marie KH, et al. Her2 testing in breast cancer: [place] Society of Clinical Oncology/College of [place] Pathologists clinical practice guideline focused update. Arch Pathol Lab Med. 2018; 142(11): 1934-9085. Mitch N, Lion P, et al. Adjuvant abemaciclib combined with endocrine therapy for high- risk early breast cancer: updated efficacy and Ki-67 analysis from the [facility] study. Lita Oncol. 2020;32(12):6210-1367. Roosevelt MAYES, Yossi DF, et al. ASCO/CAP Guideline Recommendations for Immunohistochemical Testing of Estrogen and Progesterone Receptors in Breast Cancer. J Clin Oncol, 28 (16), 2010: 3906-1291. This case was reviewed intradepartmentally. Results given to Dr. Bearden by secure text by Dr. Talley on 01/05/2025 at 4:43 pm. Special studies ordered and performed: Immunostains for CK 5/6 and ER on A3, F4, and F10; ER, ME, HER2 and Ki 67 on A5; pankeratin on B1, D1 and E1. IHC S/NG Disclaimer NOTE: Unless otherwise stated, all tissue is formalin-fixed and paraffin-embedded. Some or all of the immunohistochemical tests reported herein may have been developed and their performance characteristics determined by [facility]. They have not been cleared or approved by the U.S. Food and Drug Administration (FDA). However, the FDA has determined that such clearance or approval is not necessary. This laboratory is certified under the Clinical Laboratory Improvement Amendments of 1988 (CLIA) as qualified to perform high complexity clinical laboratory testing. Copies To: Juan R Bey MD [address] [id number] George Bearden MD [facility] [address] [place] [address] CONTINUED ON NEXT PAGE ----- ------- Name: Torrie Sy Age/Sex: 69/F : 1955 Unit#: [id number] Attend Dr: George Bearden MD Re12/29/24 Status: [facility] Location: [facility] Disch: ----- ------- SPEC : [id number] RECD: 12/29/24-125 STATUS: AMY WEBSTER NUM: [id number] HAILEY: 12/29/24-1249 [facility] DR: George Bearden MD ENTERED: 12/29/24-1304 SP TYPE: Surgical OTHR DR: Juan R Bey MD ORDERED: HE Stain/6, Gross Micro L3, Gross Micro L5/5, Cytokeratin/6, ER/4, ME, IOC, IHC/5, Add. immunos/3, IHC ER/ME/Her2N/4, CK5-6/4, E-cadherin, Ki-67, [id number] COMMENTS: Cassettes A1-A10 are placed in formalin at 1327. ----- ------- Signed (signature on file) Anna [place] 01/05/25 7945 ----- ------- END OF REPORT us Generic External Data Provider LAB BLOOD ORDERAB LES Final Result [facility] [address] [place] [phone] * BI MM SURGICAL SPECIMEN (12/29/2024 12:45 PM EDT) Anatomical Region Laterality Modality Breast Bilateral Mammography 12/29/2024 12:4 5 PM EDT Narrative 12/29/2024 1:09 PM EDT [address] [address] [id number] Mammography Report Signed Patient: Torrie Sy MR#: [id number] : 1955 Acct:[id number] Age/Sex: 69 / F ADM Date: 12/29/24 Loc: [facility] Attending Dr: George Bearden MD Ordering Physician: George Bearden MD Results: Date of Service: 12/29/24 Follow Up: Procedure(s): MM surgical specimen Accession Number(s): [id number] cc: Juan R Bey MD; George Bearden MD Single right breast specimen radiograph demonstrates the tag and the marker clip within the specimen. Electronically signed by: Gabriella Campuzano DO 12/29/2024 01:06 PM EDT Dictated By: Gabriella Campuzano DO Signed By: <Electronically signed by Gabriella Campuzano DO in OV> 12/29/24 1306 DD/ 1245 TD/TT: 12/29/24 1300 Electrical Instrument Technician: Procedure Note Donotuseinterpreter, Image - 12/29/[address] [address] [id number] Mammography Report Signed Patient: Torrie SyMR#: [id number] : 5Acct:[id number] Age/Sex: 69 / FADM Date: 12/29/24 Loc: HO.SSS Attending Dr: George Bearden MD Ordering Physician: George Beardenults: Date of Service: 12/29/24Follow Up: Procedure(s): MM surgical specimen Accession Number(s): [id number] cc: Juan R Bey MD; George Bearden MD Single right breast specimen radiograph demonstrates the tag and the marker clip within the specimen. Electronically signed by: Gabriella Campuzano DO 12/29/2024 01:06 PM EDT Workstation: [employer] Dictated By: Gabriella Campuzano DO Signed By: <Electronically signed by Gabriella Campuzano DO in OV> 12/29/24 1306 DD/ 1245 TD/TT: 12/29/24 1300 Electrical Instrument Technician: [facility] External Provider IMG BI PROCEDURES Final Result * NM SENTINEL NODE W IMAGING (12/29/2024 8:23 AM EDT) Anatomical Region Laterality Modality Nuclear Medicine 12/29/2024 8:23 AM EDT Narrative 12/29/2024 12:34 PM EDT [address] [address] Nuclear Medicine Report Signed Patient: Torrie Sy MR#: [id number] : 1955 Acct:[id number] Age/Sex: 69 / F ADM Date: 12/29/24 Loc: HO.SSS Attending Dr: George Bearden MD Ordering Physician: George Bearden MD Date of Service: 12/29/24 Procedure(s): NM sentinel node w imaging Accession Number(s): [id number] cc: EatonJuan R Mathew MD; George Bearden MD Reason for Exam: [...] 12/29/24 1232 DD/ 08 TD/TT: 12/29/24 09 Electrical Instrument Technician: [facility] Procedure Note Donotuseinterpreter, Image - 12/29/2024 [place] [address] Nuclear Medicine Report Signed Patient: Torrie SyMR#: [id number] : 5Acct:[id number] Age/Sex: 69 / FADM Date: 12/29/24 Loc: [facility] Attending Dr: George Bearden MD Ordering Physician: George Bearden MD Date of Service: 12/29/24 Procedure(s): NM sentinel node w imaging Accession Number(s): [id number] cc: Juan R Bey MD; George Bearden [...] 12/29/24 1232 DD/ 0823 TD/TT: 12/29/24 0900 Electrical Instrument Technician: JENARO [facility] External Provider IMG NM PROCEDURES Final Result * (ABNORMAL) Glucose, Whole Blood (12/29/2024 7:43 AM EDT) Glucose, Whole Blood 239(H) 60 - 115 mg/dL [facility] Comment:METER #: [id number] 12/29/2024 7:43 AM EDT 12/29/2024 7:47 AM EDT Generic External Data Provider LAB BLOOD ORDERAB LES Final Result [facility] [address] [place] [address] [phone] * Mammogram Diagnostic Right (12/27/2024 11:13 AM EDT) Anatomical Region Laterality Modality Breast Right Mammography 12/27/2024 11:1 3 AM EDT Narrative 12/27/2024 1:02 PM EDT [place] [facility] [address] [place] [address] Mammography Report Signed Patient: Torrie Sy MR#: [id number] : 1955 Acct:[id number] Age/Sex: 69 / F ADM Date: 12/27/24 Loc: HO.MAMMO Attending Dr: George Bearden MD Ordering Physician: George Bearden MD Results: 6Know n Biopsy Proven Malignancy Date of Service: 12/27/24 Follow Up: Surgical Consult Procedure(s): MM diagnostic mammo unilat RT Accession Number(s): [id number] cc: Juan R Bey MD; George Bearden [...] carbonated lidocaine 1%: 10 cc. LOCALIZATION SYSTEM: -Scoop.it LOCallizer Wire-Free Guidance System with 12g needle applicator. -Length: 7 cm. -RADIOFREQUENCY TAG: ID # [id number] RF Tag ID confirmed with LOCalizer Guidance [...] -Status post right breast RFID localization (tag ID#[id number]). Electronically signed by: Jonathan Bacon MD 12/27/2024 01:00 PM EDT Dictated By: Jonathan Bacon MD Signed By: <Electronically signed by Jonathan Bacon MD in OV> 12/27/24 1300 DD/ 1113 TD/TT: 12/27/24 1120 Electrical Instrument Technician: Procedure Note Donotuseinterpreter, Image - 12/27/2024 [facility] [address] [place] [address] Mammography Report Signed Patient: Torrie Sy#: [id number] : 5Acct:[id number] Age/Sex: 69 / FADM Date: 12/27/24 Loc: HO.MAMMO Attending Dr: George Bearden MD Ordering Physician: George Beardenesults: 6Know n Biopsy Proven Malignancy Date of Service: 12/27/24Follow Up: Surgical Consult Procedure(s): MM diagnostic mammo unilat RT Accession Number(s): [id number] cc: Juan R Bey MD; George Bearden [...] carbonated lidocaine 1%: 10 cc. LOCALIZATION SYSTEM: -S[employer]op.it LOCallizer Wire-Free Guidance System with 12g needle applicator. -Length: 7 cm. -RADIOFREQUENCY TAG: ID # [id number] RF Tag ID confirmed with LOCalizer Guidance [...] -Status post right breast RFID localization (tag ID#[id number]). Electronically signed by: Jonathan Bacon MD 12/27/2024 01:00 PM EDT Dictated By: Jonathan Bacon MD Signed By: <Electronically signed by Jonathan Bacon MD in OV> 12/27/24 1300 DD/ 1113 TD/TT: 12/27/24 1120 Electrical Instrument Technician: [facility] External Provider IMG BI PROCEDURES Edited Result - Final * US breast needle loc RT - RFID (12/27/2024 10:32 AM EDT) Anatomical Region Laterality Modality Abdomen Ultrasound 12/27/2024 10:3 2 AM EDT Narrative 12/27/2024 1:02 PM EDT [facility] [address] [place] [address] Ultrasound Report Signed Patient: Torrie Sy MR#: [id number] : 1955 Acct:[id number] Age/Sex: 69 / F ADM Date: 12/27/24 Loc: HO.MAMMO Attending Dr: George Bearden MD Ordering Physician: George Bearden MD Date of Service: 12/27/24 Procedure(s): US Breast RF Tag Device Right Accession Number(s): [id number] cc: Juan R Bey MD; George Bearden [...] carbonated lidocaine 1%: 10 cc. LOCALIZATION SYSTEM: -Scoop.it LOCallizer Wire-Free Guidance System with 12g needle applicator. -Length: 7 cm. -RADIOFREQUENCY TAG: ID # [id number] RF Tag ID confirmed with LOCalizer Guidance [...] -Status post right breast RFID localization (tag ID#[id number]). Electronically signed by: Jonathan Bacon MD 12/27/2024 01:00 PM EDT Dictated By: Jonathan Bacon MD Signed By: <Electronically signed by Jonathan Bacon MD in OV> 12/27/24 1300 DD/ 1032 TD/TT: 12/27/24 1120 Electrical Instrument Technician: Procedure Note Marthater, Image - 12/27/2024 [facility] [address] [place] [address] Ultrasound Report Signed Patient: Torrie SyMR#: [id number] : 5Acct:[id number] Age/Sex: 69 / FADM Date: 12/27/24 Loc: HO.MAMMO Attending Dr: George Bearden MD Ordering Physician: George Bearden MD Date of Service: 12/27/24 Procedure(s): US Breast RF Tag Device Right Accession Number(s): [id number] cc: Juan R Bey MD; George Bearden [...] carbonated lidocaine 1%: 10 cc. LOCALIZATION SYSTEM: -S[employer].it LOCallizer Wire-Free Guidance System with 12g needle applicator. -Length: 7 cm. -RADIOFREQUENCY TAG: ID # [id number] RF Tag ID confirmed with LOCalizer Guidance [...] -Status post right breast RFID localization (tag ID#[id number]). Electronically signed by: Jonathan Bacon MD 12/27/2024 01:00 PM EDT Dictated By: Jonathan Bacon MD Signed By: <Electronically signed by Jonathan Bacon MD in OV> 12/27/24 1300 DD/ 1032 TD/TT: 12/27/24 1120 Electrical Instrument Technician: us [facility] External Provider IMG US PROCEDURES Edited Result - Final * Stress test with myocardial perfusion (11/25/2024 9:41 AM EDT) 11/25/2024 9:41 AM EDT Narrative [facility] - 11/28/2024 9:19 AM EDT [place] [address] Nuclear Medicine Report Signed Patient: Torrie Sy MR#: [id number] : 1955 Acct:[id number] Age/Sex: 69 / F ADM Date: 11/25/24 Loc: [facility] Attending Dr: David Sarmiento MD Ordering Physician: David Sarmiento MD Date of Service: 11/25/24 Procedure(s): NM cardiolite stress test Accession Number(s): [id number] cc: Juan R Bey MD; David Sarmiento [...] no clear reversible or fixed perfusion abnormality. NM/ID cardiolite stress test Impression: 1. Myocardial perfusion [...] 11/28/24 0915 DD/ 0941 TD/TT: 11/26/24 1400 Electrical Instrument Technician: Procedure Note Donotuseinterpreter, Image - 11/28/[address] [address] Nuclear Medicine Report Signed Patient: Torrie Sy#: [id number] : 5Acct:[id number] Age/Sex: 69 / FADM Date: 11/25/24 Loc: HO.CARD Attending Dr: David Sarmiento MD Ordering Physician: David Sarmiento MD Date of Service: 11/25/24 Procedure(s): ID cardiolite stress test Accession Number(s): [id number] cc: Juan R Bey MD; David Sarmiento MD [employer] Myocardial perfusion study Indication: Abnormal EKG Technique: [...] 11/28/24 0915 DD/ 0941 TD/TT: 11/26/24 1400 Electrical Instrument Technician: [facility] External Provider CV STRE SS PROCEDURES Edited Result - Final [facility] [address] [place] [phone] * Cell Block (11/10/2024 11:26 AM EDT) 11/10/2024 11:2 6 AM EDT 11/10/2024 11:44 AM EDT Kostas [facility] - 11/11/2024 10:45 AM EDT ----- ------- Name: Torrie Sy Age/Sex: 69/F : 1955 [id number]#: [id number] Attend Dr: Eduarda Quintanilla MD Re11/10/24 Status: [facility] REF Location: [facility] Disch: ----- ------- SPEC : [id number] RECD: 11/10/24-1144 STATUS: AMY WEBSTER NUM: [id number] [place]: 11/10/24-1126 [facility] DR: Eduarda Quintanilla MD ENTERED: 11/10/24-1212 SP TYPE: Cytology OTHR DR: Juan R Bey MD ORDERED: Cell Block, Fine Ndl Asp Diagnosis Thyroid, left mid lower pole 3.3 cm nodule, fine needle aspiration: Non-diagnostic ([place] category I). COMMENT: Only rare groups of [...] developed and their performance characteristics determined by [facility]. They have not been cleared or approved by the U.S. Food and Drug Administration (FDA). However, the FDA has determined that such clearance or approval is not necessary. This laboratory is certified under the Clinical Laboratory Improvement Amendments of 1988 (CLIA) as qualified to perform high complexity clinical laboratory testing. Copies To: Juan R Bey MD [address] [address] Eduarda Quintanilla MD [facility] Endocrinology [address] [place] [phone] CONTINUED ON NEXT PAGE ----- ------- Name: Torrie Sy Age/Sex: 69/F : 1955 Unit#: [id number] Attend Dr: Eduarda Quintanilla MD Re11/10/24 Status: DEP REF Location: [facility] Disch: ----- ------- SPEC : [id number] RECD: 11/10/24-1144 STATUS: AMY WEBSTER NUM: [id number] [place]: 11/10/24-1126 [facility] DR: Eduarda Quintanilla MD ENTERED: 11/10/24-1212 SP TYPE: Cytology OTHR DR: Juan R Bey MD ORDERED: Cell Block, Fine Ndl Asp Copies To: (Continued) [email or web address] ----- ------- Signed (signature on file) Juan Blunt MD 11/11/24 1045 ----- ------- END OF REPORT us Generic External Data Provider LAB CYTOLOGY STEVAN PERZE Final Result [facility] [address] [place] [phone] [phone] * (ABNORMAL) Lipid Panel, Standard (10/18/2024 2:56 PM EDT) Triglycerides 186(H) <150 mg/dL [facility] Comment:Desirable Triglyceri de: less than 150 mg/dLBorderline High Triglyceride 150-199 mg/dLHigh Triglyceride: 200-499 mg/dLVery High Triglyceride: greater than or equal to 5OO mg/dL Cholesterol 127 <200 mg/dL [facility] Comment:Desirable Cholestero l: less than 200 mg/dLBorderline High Cholesterol: 200-239 mg/dLHigh Cholesterol: greater than 239 mg/dL LDL Cholesterol Calculated 56 <100 mg/dL [facility] Comment:Desirable LDL: less than 100 mg/dLNear Optimal/Above Optimal LDL: 110- 129 mg/dLBorderline High LDL: 130-159 mg/dLHigh LDL: 160-189 mg/dLVery High LDL: greater than or equal to 190 mg/dL HDL Cholesterol 34(L) >40 mg/dL [facility] Comment:Desirable HDL: great er than 40 mg/dL Note: This HDL assay may give artificially low results in patients with liver disease. 10/18/2024 2:56 PM EDT 10/18/2024 2:56 PM EDT us Generic External Data Provider LAB BLOOD ORDERAB LES Final Result Performing Organization Address [facility] de Phone Number [facility] [address] [place] [phone] * Albumin, Random Urine W/Creatinine (10/18/2024 2:55 PM EDT) Creatinine, Urine 136.42 mg/dL [facility] Microalbumin Urine 28.0 mg/L [facility] Microalbum Creatinine Ratio Ur 20.5 <30 ug/mg cr [facility] Comment:Albumin/Creatinine R atio Reference Ranges: Normal: < 30 ug/mg creatinine Microalbuminuria: 30 - 300 ug/mg creatinineClinical Albuminuria: > 300 ug/mg creatinine 10/18/2024 2:55 PM EDT 10/18/2024 3:23 PM EDT us Generic External Data Provider LAB URINE ORDERAB LES Final Result Performing Organization Address [facility] Co de Phone Number [facility] [address] [place] [phone] * Hepatitis Panel, General (02/05/2024 9:25 AM EDT) Hepatitis A IgM Nonreactive Nonreactive [facility] Comment:IgM antibodies to DE [place] CRUZ V not detected; does not exclude earlyacute or recovered HAV infection. ~Hepatitis B Surface Antibody NONREACTIVE Nonreactive [facility] Comment:Nonreactive: < 8.00 mIU/mL Hepatitis B Core Antibody Nonreactive Nonreactive [facility] Hepatitis C Antibody Nonreactive Nonreactive [facility] Comment:Antibodies to HCV no t detected; does not exclude early acuteHCV infection. Hepatitis B Surface Ag Negative Negative [facility] 02/05/2024 9:25 AM EDT 02/05/2024 9:25 AM EDT us Generic External Data Provider LAB BLOOD ORDERAB LES Final Result [facility] [address] [place] [phone] from Last 3 Months or Most Recently Relevant to Health Maintenance Insurance [facility] < [address] [id number] Care Teams Truck Sales Manager Relationship Specialty Start Date End Date Juan R Blount MD [address] [place] [address] PCP - General Internal Medicine 12/09/13 [facility] Endocrin[facility] 08/23/24
--- OUTSIDE RECORDS SUMMARY | 2025-02-10 15:07 | XMS_ITS | Encounter Summary ---
Author Organization [employer] Address [address] [facility] 7t [place] [address] Care Team Providers Care De Icer Element Winder Name Role Phone Juan R Blount MD Primary Care Provide r Reason for Visit * Reason Comments Med Refill Encounter Details Date Type Department Care Team ([facility] st Contact Info) Description 12/17/2024 Refill [facility] [address] [place], [place] [phone] Juan R Blount MD [address] [place], [place] [phone] Asthma, unspecified asthma severity, unspecified whether complicated, [...] [place] Subject: Script Requests Grebritney, I am (Nurse Manager Ashley Ponce), Nurse Manager for [facility] Care Management, requesting the following DME???s on behalf of patient. DME Item: Handheld Shower head, and non-slip bathmat Supportive DX: R29.6, E66.09 If you should have any inquiries regarding this request, feel free to contact the Nurse Manager below. Nurse Manager: Ashley Ponce E-mail: [email or web address] Nephrology Social Worker: Nephrology Social Worker Gayla Singh Phone: E-mail: [email or web address] Thanks in advance for your assistance with this request. Sincerely, [facility] Care Management documented in this encounter Plan of Treatment Not on file documented as of this encounter Visit Diagnoses Diagnosis Asthma, unspecified asthma severity, unspecified whether complicated, unspecified whether persistent documented in this encounter Additional Health Concerns Assessment Noted Time PHQ-9 Depression Total Score: 3 01/15/20 24 1:38 PM EDT documented as of this encounter Care Teams De Icer Element Winder Relationship Specialty Start Date End Date Juan R Blount MD [address] [place] [address] PCP - General Internal Medicine 12/09/13 [facility] Endocrin[facility] 08/23/24 documented as of this encounter
--- OUTSIDE RECORDS SUMMARY | 2025-02-10 15:07 | XMS_ITS | Encounter Summary ---
Author Organization [employer] Address 75 [facility] 7t [place] [address] Care Team Providers Care Canned Food Reconditioning Inspector Name Role Phone Juan R Blount MD Primary Care Provide r Reason for Visit * Reason Comments Med Refill Encounter Details Date Type Department Care Team ([facility] st Contact Info) Description 07/29/2023 Refill [facility] MED & PEDS [address] [place] [address] Aggie Guan MD [address] [place] [phone] Primary insomnia Social History Tobacco Use Types [...] documented as of this encounter Care Teams Canned Food Reconditioning Inspector Relationship Specialty Start Date End Date Juan R Blount MD [address] [place] [phone] PCP - General Internal Medicine 12/09/13 [facility] Endocr[facility] 08/23/24 documented as of this encounter
--- OUTSIDE RECORDS SUMMARY | 2025-02-10 15:07 | XMS_ITS | Encounter Summary ---
Author Organization [employer] Address [address] [facility] 7t [place] [address] Care Team Providers Care Reception Centre Manager Name Role Phone Juan R Blount MD Primary Care Provide r Reason for Visit * Reason Onset Date Comments Med Refill 12/03/2022 Encounter Details Date Type Department Care Team ([facility] st Contact Info) Description 12/03/2022 Refill [facility] [address] [place], [place] [phone] Juan R Blount MD [address] [place] [address] Asthma, unspecified asthma severity, unspecified whether complicated, [...] documented as of this encounter Care Teams Reception Centre Manager Relationship Specialty Start Date End Date Juan R Blount MD [address] [place] [phone] PCP - General Internal Medicine 12/09/13 [facility] Endocrin[facility] 08/23/24 documented as of this encounter
--- OUTSIDE RECORDS SUMMARY | 2025-02-10 15:07 | XMS_ITS | Encounter Summary ---
Author Organization [employer] Address 75 [facility] 7t [place] [address] Care Team Providers Care Client Business Manager Name Role Phone Juan R Blount MD Primary Care Provide r Reason for Visit * Reason Comments Med Refill Encounter Details Date Type Department Care Team ([facility] st Contact Info) Description 01/13/2025 Refill [facility] [address] [place], [place] [phone] Juan R Blount MD [address] [place], [place] [phone] Type 2 diabetes mellitus with hyperglycemia, with long-term current use of insulin ([facility]) Social History Tobacco Use Types Packs/Day Years [...] as of this encounter Care Teams Client Business Manager Relationship Specialty Start Date End Date Juan R Blount MD [address] [place] [address] PCP - General Internal Medicine 12/09/13 [facility] Endocrin[facility] 08/23/24 documented as of this encounter
--- OUTSIDE RECORDS SUMMARY | 2025-02-10 15:07 | XMS_ITS | Encounter Summary ---
Author Organization [employer] Address [address] [facility] [address] 7[address] [place] [address] Care Team Providers Care Construction Equipment Technician Name Role Phone Juan R Blount MD Primary Care Provide r Reason for Visit * Reason Comments Med Refill Encounter Details Date Type Department Care Team ([facility] st Contact Info) Description 08/26/2024 Refill [facility] CH[facility] MED & PEDS [address] [place], [place] [phone] Juan R Blount MD [address] [place] [address] Primary insomnia Social History Tobacco Use Types [...] documented as of this encounter Care Teams Construction Equipment Technician Relationship Specialty Start Date End Date Juan R Blount MD [address] [place] [address] PCP - General Internal Medicine 12/09/13 [facility] Endocrinology 08/23/24 documented as of this encounter
--- OUTSIDE RECORDS SUMMARY | 2025-02-10 15:07 | XMS_ITS | Clinical Summary ---
Author Organization [facility] Address [address] [address] [place] [place] [phone] Phone Care Team Providers Care Hot Metal Charger Name Role Phone Juan R Eaton MD [...] this topic Insurance [place] Care Teams Hot Metal Charger Relationship Specialty Start Date End Date Juan R Eaton MD PCP - General Internal Medicine 08/23/20
--- OUTSIDE RECORDS SUMMARY | 2025-02-10 15:07 | XMS_ITS | Clinical Summary ---
Author Organization [facility] Address [address] [place] [address] Phone Care Team Providers Care Hand Deicer Element Winder Name Role Phone Juan R Bey MD [...] Health Maintenance Due Date Last Done Comments Colorectal Cancer Screening: Colonoscopy 1955 Diabetes: Annual GFR (Glomerular Filtration Rate) 1955 Diabetes: Annual Foot Exam 1965 Diabetes: Annual Retina Eye Exam 1965 Pneumococcal Vaccine: 50+ Years (2 of 2 - PCV) 02/17/2004 02/16/2003 RSV Immunization Adult Patients (1 - Risk 50-74 years 1-dose series) 2005 Zoster Vaccines (1 of 2) 2005 DTaP,Tdap,and Td Vaccines (2 - Td or Tdap) 07/13/2012 07/13/2002 Depression Screening 04/21/2024 Cholesterol Screening (Lipid Panel) 09/03/2024 Falls Risk Assessment 09/03/2024 Hepatitis C [...] this topic Medical Devices Implanted Type Area Product Technology Scientist Device Identifier Shelf Expiration Date Model / Serial / Lot Marker Breast Biopsy 10g Flexible Ti Open Coil Hydromark - [id number] Implanted:Qty: 1 on 09/23/2024 by Christos Warner MD at [facility] Imaging Implants Right: Breast DEVICOR [employer] [id number] 03/10/2027 4010-05- 10-T3 / / [id number] Procedures Procedure Name Priority Date/Time Associated [...] hours on 09/27/[address] Beadren. The patient will follow-up for definitive management [...] Signed Date: 09/27/2024 14:26 ET Workstation ID: [id number] Transcribed By: Self Edit Transcribed Date: 09/27/2024 [...] Pathology pending for the right breast. Location: [address] [place], [address] -------- FINAL REPORT -------- Dictated By: Christos Warner Dictated Date: 09/23/2024 13:54 ET Assigned Physician: Christos Warner Reviewed and Electronically Signed By: Christos Warner Signed Date: 09/23/2024 15:10 ET Workstation ID: [id number] Transcribed By: Self Edit Transcribed Date: 09/23/2024 [...] Group ID:ICO Type:Not on file Address: [facility] [address] [phone] Care Teams Hand Deicer Element Winder Relationship Specialty Start Date End Date Juan R Bey MD [address] [place] [address] PCP - General Internal Medicine 09/03/24
--- OUTSIDE RECORDS SUMMARY | 2025-02-10 15:07 | XMS_ITS | Encounter Summary ---
Author Organization [employer] Address [address] [facility] [address] 7t [place] [address] Care Team Providers Care Apartment Property Manager Name Role Phone Juan R Blount MD Primary Care Provide r Reason for Visit * Reason Comments Med Refill Encounter Details Date Type Department Care Team ([facility] st Contact Info) Description 10/23/2023 Refill [facility] CH[facility] MED & PEDS [address] [place], [place] [phone] Juan R Blount MD [address] [place] [address] Type 2 diabetes mellitus with hyperglycemia, with long-term current use of insulin ([facility]) Social History Tobacco Use Types [...] documented as of this encounter Care Teams Apartment Property Manager Relationship Specialty Start Date End Date Juan R Blount MD [address] [place] [address] PCP - General Internal Medicine 12/09/13 [facility] Endocrinology 08/23/24 documented as of this encounter
--- OUTSIDE RECORDS SUMMARY | 2025-02-10 15:07 | XMS_ITS | Encounter Summary ---
Author Organization [employer] Address [address] [facility] [address] 7t [place] [address] Care Team Providers Care Senior Report Developer Name Role Phone Juan R Blount MD Primary Care Provide r Reason for Visit * Reason Comments Med Refill Encounter Details Date Type Department Care Team ([facility] st Contact Info) Description 02/04/2024 Refill [facility] [address] [place], [place] [phone] Lewis Carter MD [address] [place], [place] [phone] Social History Tobacco Use Types Packs/Day Years [...] documented as of this encounter Care Teams Senior Report Developer Relationship Specialty Start Date End Date Juan R Blount MD [address] [place] [address] PCP - General Internal Medicine 12/09/13 [facility] Endocrin[facility] 08/23/24 documented as of this encounter
--- OUTSIDE RECORDS SUMMARY | 2025-02-10 15:08 | XMS_ITS | Encounter Summary ---
Author Organization [employer] Address [address] [facility] 7t [place] [address] Care Team Providers Care Risk Officer Name Role Phone Juan R Blount MD Primary Care Provide r Encounter Details Date Type Department Care Team (Late st Contact Info) Description 05/31/2022 Abstract [facility] [address] [place], [place] [phone] Juan R Blount MD [address] [place], [place] [phone] Social History Tobacco Use Types Packs/Day Years [...] on filedocumented in this encounter Care Teams Risk Officer Relationship Specialty Start Date End Date Juan R Blount MD [address] [place], [place] [phone] PCP - General Internal Medicine 12/09/13 [facility] Endocrin[facility] 08/23/24 documented as of this encounter
--- OUTSIDE RECORDS SUMMARY | 2025-02-10 15:08 | XMS_ITS | Encounter Summary ---
Author Organization [employer] Address [address] [facility] 7t [place] [address] Care Team Providers Care Technical Service Engineer Name Role Phone Juan R Blount MD Primary Care Provide r Encounter Details Date Type Department Care Team ([facility] st Contact Info) Description 07/03/2022 Orders Only [facility] CHC MED & PEDS [address] [place] [address] Luz Marina Zaragoza LPN Social History Tobacco [...] on filedocumented in this encounter Care Teams Technical Service Engineer Relationship Specialty Start Date End Date Juan R Blount MD [address] [place] [address] PCP - General Internal Medicine 12/09/13 Sh[facility] Endocrinology 08/23/24 documented as of this encounter
--- OUTSIDE RECORDS SUMMARY | 2025-02-10 15:08 | XMS_ITS | Encounter Summary ---
Author Organization [employer] Address [address] [facility] 7t [place] [address] Care Team Providers Care Anthropology Department Chair Name Role Phone Juan R Blount MD Primary Care Provide r Encounter Details Date Type Department Care Team ([facility] Contact Info) Description 02/10/2025 Orders Only GENERIC EXTERNAL DATA [...] WHOLE BLOOD Routine 02/10/2025 12:43 PM EDT documented in this encounter Results * (ABNORMAL) Glucose, Whole Blood (02/10/2025 12:43 PM EDT) Glucose, Whole Blood 208(H) 60 - 115 mg/dL [facility] Comment:METER #: [id number] Testing performed in the Endocrinology Department [address] , [address], [facility]. 02/10/2025 12:4 3 PM EDT 02/10/2025 12:47 PM EDT us Generic External Data Provider LAB BLOOD ORDERAB LES Final Result [facility] [address] [place] [phone] [phone] documented in this encounter Visit Diagnoses Not on filedocumented in this encounter Additional Health Concerns Assessment Noted Time PHQ-9 Depression Total Score: 5 01/26/20 25 1:00 PM EDT documented as of this encounter Care Teams Anthropology Department Chair Relationship Specialty Start Date End Date Juan R Blount MD [address] [place] [address] PCP - General Internal Medicine 12/09/13 [facility] Endocrin[facility] 08/23/24 documented as of this encounter
--- OUTSIDE RECORDS SUMMARY | 2025-02-10 15:08 | XMS_ITS | Encounter Summary ---
Author Organization [employer] Address [address] [facility] 7t [place] [address] Care Team Providers Care Brood Station Manager Name Role Phone Juan R Blount MD Primary Care Provide r Encounter Details Date Type Department Care Team ([facility] st Contact Info) Description 06/11/2022 Orders Only [facility] CHC MED & PEDS [address] [place] [address] Luz Marina Zaragoza LPN Social History Tobacco [...] on filedocumented in this encounter Care Teams Brood Station Manager Relationship Specialty Start Date End Date Juan R Blount MD [address] [place] [address] PCP - General Internal Medicine 12/09/13 [facility] Endocrin[facility] 08/23/24 documented as of this encounter
--- OUTSIDE RECORDS SUMMARY | 2025-02-10 15:08 | XMS_ITS | Encounter Summary ---
Author Organization [employer] Address [address] [facility] 7t [place] [address] Care Team Providers Care Guest Relations Executive Name Role Phone Juan R Blount MD Primary Care Provide r Encounter Details Date Type Department Care Team ([facility] st Contact Info) Description 05/29/2022 Orders Only [facility] [address] [place], [place] [phone] Cyndi Sy LPN Social History Tobacco Use [...] on filedocumented in this encounter Care Teams Guest Relations Executive Relationship Specialty Start Date End Date Juan R Blount MD [address] [place] [address] PCP - General Internal Medicine 12/09/13 [facility] Endocrin[facility] 08/23/24 documented as of this encounter
== END 2025-02-10 13:23 | disposition home or self-care (01) ==
PROVIDERS: PCP Internal Medicine; Visit Provider Student in an Organized Health Care Education/Training Program
DX: E11.42 Type 2 diabetes mellitus with diabetic polyneuropathy (principal); Z79.4 Long term (current) use of insulin; E04.1 Nontoxic single thyroid nodule
CPT/HCPCS: 99215

== ENCOUNTER → 2025-02-10 11:49 | Outpatient (BNVA) | payer OTHER, SELFPAY | PROVIDERS: PCP Internal Medicine; Visit Provider Student in an Organized Health Care Education/Training Program | DX: E11.42 Type 2 diabetes mellitus with diabetic polyneuropathy (principal); Z79.4 Long term (current) use of insulin; E04.1 Nontoxic single thyroid nodule | CPT/HCPCS: 82947; 95250; 99212 ==

== ENCOUNTER 2025-02-14 11:56 | Outpatient (REF) | payer OTHER, SELFPAY ==
--- OUTSIDE RECORDS SUMMARY | 2024-05-25 09:00 | XMS_ITS ---
Author Organization [facility] Address [address] [place] [address] Care Team Providers Care Food Beverage Manager Name Role Phone Angelito Vega MD, Juan R Primary Care Provide Caden Jordan [phone] REASON FOR VISIT Patient presents today for a COLON SCREENING Encounters Encounter Location Date Provider Diagnosis [facility] [address] [place] [phone] 05/25/2024 Caden Huffman Plan Of Treatment No Information Progress Notes * MERCEDES BRUSHDOB:[birth year] (70 yo M)Acc No.[id number]:05/25/2024 Progress Notes Patient: MERCEDES PEPE Provider: Rey Huffman MD :1955 A ge:69 Y S ex:Male Date:05/25/2024 Address:[address] [place], [place] [id number] Pcp:Juan R montalvo MD Subjective: * Chief [...] 0 05/25/2024 Generated for Deirdre dominguez/Bobbi/Chitraitting on: 03:23 PM EDT
--- OUTSIDE RECORDS SUMMARY | 2024-09-28 06:10 | XMS_ITS ---
Author Organization [facility] Address [address] [place] [phone] Care Team Providers Care Fisher Eel Name Role Phone Angelito Vega MD, Juan R Primary Care Provide Caden Jordan [phone] REASON FOR VISIT patient presents today for COLON SCREENING Encounters Encounter Location Date Provider Diagnosis [facility] [address] [place] [phone] 09/28/2024 Caden Huffman Plan Of Treatment No Information Progress Notes * MERCEDES BRUSHDOB:[birth year] (70 yo M)Acc No.[id number]:09/28/2024 Progress Notes Patient: MERCEDES PEPE Provider: Rey Huffman MD :1955 A ge:69 Y S ex:Male Date:09/28/2024 Address:[address] [place], [place] [id number] Pcp:Juan R montalvo MD Subjective: * Chief [...] Sign off status: Pending * Provider: Rey Hfufman MD Date: 0 09/28/2024 Generated for Deirdre dominguez/Bobbi/eTcamitting on: 03:23 PM EDT
--- NOTE | ~2025-02-14 | MM_ITS ---
EXAMINATION: DXA BONE DENSITY AXIAL HISTORY: Osteopenia TECHNIQUE: Socialscope Dual energy absorptiometry (DEXA) of the lumbar spine, total left hip, and femoral neck was performed. COMPARISON: Comparison is made with the prior examination dated 02/26/2023. FINDINGS: The bone mineral density of the lumbar spine is 1.267 g/cm2, corresponding to a T-score of 0.8, and a Z-score of 2.2. This is indicative of normal bone mineral density. This represents a BMD change of -3.9% compared to the prior exam. This is not statistically significant. The bone mineral density of the left total hip is 0.831 g/cm2, corresponding to a T-score of -1.4, and a Z-score of -0.2. This is indicative of osteopenia. This represents a BMD change of -5.8% compared to the prior exam. This is statistically significant. The bone mineral density of the left femoral neck is 0.690 g/cm2, corresponding to a T-score of -2.5, and a Z-score of -1.0. This is indicative of osteoporosis. This represents a BMD change of -4.6% compared to the prior exam. MM/XR DEXA axial skeleton IMPRESSION: Based on bone mineral density, and according to World Health Organization (WHO) criteria, the diagnosis is consistent with osteoporosis. Statistically, 68% of repeat scans fall within 1 SD (+/- 0.010 g/cm2 for AP spine L1-L4) and 1 SD (+/- 0.012 g/cm2 for femur total) FRAX is a trademark of the [employer], a World Health Organization (WHO) Collaborating Center. Electronically signed by: Caden Blood MD 02/14/2025 01:11 PM EDT
--- OUTSIDE RECORDS SUMMARY | 2025-02-14 15:22 | XMS_ITS | Encounter Summary ---
Author Organization [employer] Address [address] [facility] [address] 7[address] [place] [address] Care Team Providers Care Bank Clerk Name Role Phone Juan R Blount MD Primary Care Provide r Reason for Visit * Reason Comments Med Refill Encounter Details Date Type Department Care Team ([facility] st Contact Info) Description 06/17/2024 Refill [facility] [address] [place], [place] [phone] Name, MD Fco [address] [place] [address] Mixed hyperlipidemia Social History Tobacco Use Types [...] documented as of this encounter Care Teams Bank Clerk Relationship Specialty Start Date End Date Juan R Blount MD [address] [place] [address] PCP - General Internal Medicine 12/09/13 Sh[facility] Sutton Endocrinology 08/23/24 documented as of this encounter
--- OUTSIDE RECORDS SUMMARY | 2025-02-14 15:22 | XMS_ITS | Encounter Summary ---
Author Organization [employer] Address [address] [facility] [address] 7[address] [place] [address] Care Team Providers Care Daily Release And Dupe Printer Name Role Phone Juan R Blount MD Primary Care Provide r Encounter Details Date Type Department Care Team (Late st Contact Info) Description 05/16/2023 Abstract [facility] [address] [place] [address] Juan R Blount MD [address] [place] [address] Social History Tobacco Use Types [...] documented as of this encounter Care Teams Daily Release And Dupe Printer Relationship Specialty Start Date End Date Juan R Blount MD [address] [place] [address] PCP - General Internal Medicine 12/09/13 Sh[facility] Sutton Endocrinology 08/23/24 documented as of this encounter
--- OUTSIDE RECORDS SUMMARY | 2025-02-14 15:22 | XMS_ITS | Clinical Summary ---
Author Organization [facility] Address [address] [place] [address] Phone Care Team Providers Care Solar Photovoltaic Electrician Name Role Phone Juan R Bey MD [...] this topic Medical Devices Implanted Type Area Orthopedic Dentist Device Identifier Shelf Expiration Date Model / Serial / Lot Marker Breast Biopsy 10g Flexible Ti Open Coil [employer] - [id number] Implanted:Qty: 1 on 09/23/2024 by Christos Warner MD at [facility] Imaging Implants Right: Breast DEVICOR [employer] [id number] 03/10/2027 4010-05- 10-T3 / / [id number] Procedures Procedure Name Priority Date/Time Associated [...] Signed Date: 09/27/2024 14:26 ET Workstation ID: [id number] Transcribed By: Self Edit Transcribed Date: 09/27/2024 [...] Pathology pending for the right breast. Location: [address] [place], [address] -------- FINAL REPORT -------- Dictated By: Christos Warner Dictated Date: 09/23/2024 13:54 ET Assigned Physician: Christos Warner Reviewed and Electronically Signed By: Christos Warner Signed Date: 09/23/2024 15:10 ET Workstation ID: [id number] Transcribed By: Self Edit Transcribed Date: 09/23/2024 [...] ID:[id number] Group ID:ICO Type:Not on file Address: [facility] [address] [phone] Care Teams Solar Photovoltaic Electrician Relationship Specialty Start Date End Date Juan R Bey MD [address] [place] [address] PCP - General Internal Medicine 09/03/24
--- OUTSIDE RECORDS SUMMARY | 2025-02-14 15:22 | XMS_ITS | Encounter Summary ---
Author Organization [email or web address] Address [address] [facility] 7t [place] [address] Care Team Providers Care Fitter Placer Name Role Phone Juan R Blount MD Primary Care Provide r Reason for Visit * Reason Comments Med Refill Encounter Details Date Type Department Care Team ([facility] st Contact Info) Description 01/13/2025 Refill [facility] MEDICINE [address] [place], [place] [phone] Juan R Blount MD 230 [place], [place] [phone] Type 2 diabetes mellitus with hyperglycemia, with long-term current use of insulin ([facility]) Social History Tobacco [...] documented as of this encounter Care Teams Fitter Placer Relationship Specialty Start Date End Date Juan R Blount MD 230 [place] [address] PCP - General Internal Medicine 12/09/13 Shasta Sutton Endocrinology 08/23/24 documented as of this encounter
--- OUTSIDE RECORDS SUMMARY | 2025-02-14 15:22 | XMS_ITS | Encounter Summary ---
Author Organization [employer] Address [address] [facility] [address] 7t [place] [address] Care Team Providers Care Bolt Maker Name Role Phone Juan R Blount MD Primary Care Provide r Reason for Visit * Reason Comments Med Refill Encounter Details Date Type Department Care Team ([facility] st Contact Info) Description 10/23/2023 Refill [facility] CHC MED & PEDS [address] [place], [place] [phone] Juan R Blount MD 230 [place] [address] Type 2 diabetes mellitus with hyperglycemia, with long-term current use of insulin ([facility]) Social History Tobacco Use Types Packs/Day Years [...] documented as of this encounter Care Teams Bolt Maker Relationship Specialty Start Date End Date Juan R Blount MD [address] [place] [address] PCP - General Internal Medicine 12/09/13 Shasta Sutton Endocrinology 08/23/24 documented as of this encounter
--- OUTSIDE RECORDS SUMMARY | 2025-02-14 15:22 | XMS_ITS | Encounter Summary ---
Author Organization [employer] Address [address] [facility] [address] 7t [place] [address] Care Team Providers Care Unloader Operator Name Role Phone Juan R Blount MD Primary Care Provide r Reason for Visit * Reason Comments Med Refill Encounter Details Date Type Department Care Team ([facility] st Contact Info) Description 08/26/2024 Refill [facility] CHC MED & PEDS [address] [place], [place] [phone] Juan R Blount MD 230 [place] [address] Primary insomnia Social History Tobacco Use Types [...] documented as of this encounter Care Teams Unloader Operator Relationship Specialty Start Date End Date Juan R Blount MD 230 [place] [address] PCP - General Internal Medicine 12/09/13 Shasta Sutton Endocrinology 08/23/24 documented as of this encounter
--- OUTSIDE RECORDS SUMMARY | 2025-02-14 15:22 | XMS_ITS | Encounter Summary ---
Author Organization [employer] Address [address] [facility] [address] 7t [place] [address] Care Team Providers Care Loading Rack Supervisor Name Role Phone Juan R Blount MD Primary Care Provide r Encounter Details Date Type Department Care Team ([facility] st Contact Info) Description 05/16/2022 Orders Only [facility] CHC MED & PEDS [address] [place] [address] Luz Marina Zaragoza LPN Social History Tobacco [...] PM EST Narrative 05/28/2022 4:46 PM EST [facility] [address] [place] [address] Mammography Report Signed Patient: Torrie Sy MR#: [id number] : 1955 Acct:[id number] Age/Sex: 67 / F ADM Date: 05/28/22 Loc: HO.MAMMO Attending Dr: Juan R Bey MD Ordering Physician: Juan R Bey MD Results: 3.6MProbably Benign Finding - Short 6 M F/U Suggested Date of Service: 05/28/22 Follow Up: 6 Month F/U Procedure(s): MM tomosynthesis diagnostic LT Accession Number(s): [id number] cc: Juan R Bey MD EXAMINATION: MM [...] by Reggie Olvera MD in OV> 05/28/22 1647 DD/ 1458 TD/TT: Bottom Sprayer: SANTOS Procedure Note Donotuseinterpreter, Image - 05/28/2022 [facility] [address] [place] [address] Mammography Report Signed Patient: Torrie SyMR#: [id number] : 5Acct:[id number] Age/Sex: 67 / FADM Date: 05/28/22 Loc: HO.MAMMO Attending Dr: Juan R Bey MD Ordering Physician: Juan R Bey MD Results: 3.6MProbably Benign Finding - Short 6 M F/U Suggested Date of Service: 05/28/22Follow Up: 6 Month F/U Procedure(s): MM tomosynthesis diagnostic LT Accession Number(s): [id number] cc: Juan R Bey MD EXAMINATION: MM [...] in OV> 05/28/22 1643 DD/ 1458 TD/TT: Bottom Sprayer: [facility] External Provider IMG BI PROCEDURES Edited Result - Final documented in this encounter Visit Diagnoses Not on filedocumented in this encounter Care Teams Loading Rack Supervisor Relationship Specialty Start Date End Date Juan R Blount MD [address] [place] [address] PCP - General Internal Medicine 12/09/13 Shasta Sutton Endocrinology 08/23/24 documented as of this encounter
--- OUTSIDE RECORDS SUMMARY | 2025-02-14 15:22 | XMS_ITS | Encounter Summary ---
Author Organization [employer] Address [address] [facility] [address] 7t [place] [address] Care Team Providers Care Manager Internet Retails Sales Name Role Phone Juan R Blount MD Primary Care Provide r Reason for Visit * Reason Comments Med Refill Encounter Details Date Type Department Care Team ([facility] st Contact Info) Description 04/16/2024 Refill [facility] CHC MED & PEDS [address] [place] [address] Aggie Melendez MD 230 [place] [address] Primary insomnia Social History Tobacco Use Types [...] as of this encounter Care Teams Manager Internet Retails Sales Relationship Specialty Start Date End Date Juan R Blount MD 230 [place] [address] PCP - General Internal Medicine 12/09/13 Shasta Sutton Endocrinology 08/23/24 documented as of this encounter
--- OUTSIDE RECORDS SUMMARY | 2025-02-14 15:23 | XMS_ITS | Clinical Summary ---
Author Organization [facility] Address [address] [place] [address] [place] [phone] Phone Care Team Providers Care Button Bradder Name Role Phone Juan R Eaton MD [...] this topic Insurance [place] Care Teams Button Bradder Relationship Specialty Start Date End Date Juan R Eaton MD PCP - General Internal Medicine 08/23/20
--- OUTSIDE RECORDS SUMMARY | 2025-02-14 15:23 | XMS_ITS | Encounter Summary ---
Author Organization [employer] Address 75 [facility] 7t [place] [address] Care Team Providers Care Inspector Metal Can Name Role Phone Juan R Blount MD Primary Care Provide r Encounter Details Date Type Department Care Team (Late st Contact Info) Description 10/29/2022 Abstract [facility] MEDICINE 230 [place], [place] [phone] Juan R Blount MD 230 [place], [place] [phone] Social History Tobacco Use Types Packs/Day Years [...] on filedocumented in this encounter Care Teams Inspector Metal Can Relationship Specialty Start Date End Date Juan R Blount MD 230 [place], [place] [phone] PCP - General Internal Medicine 12/09/13 Shasta Sutton Endocrinology 08/23/24 documented as of this encounter
--- OUTSIDE RECORDS SUMMARY | 2025-02-14 15:23 | XMS_ITS | Encounter Summary ---
Author Organization [employer] Address 75 [facility] 7t [place] [address] Care Team Providers Care Warp Doffer Name Role Phone Juan R Blount MD Primary Care Provide r Reason for Visit * Reason Comments Med Refill Encounter Details Date Type Department Care Team ([facility] st Contact Info) Description 07/29/2023 Refill [facility] CHC MED & PEDS [address] [place] [address] Aggie Guan MD 230 [place] [address] Primary insomnia Social History Tobacco Use Types [...] documented as of this encounter Care Teams Warp Doffer Relationship Specialty Start Date End Date Juan R Blount MD [address] [place] [address] PCP - General Internal Medicine 12/09/13 Shasta Sutton Endocrinology 08/23/24 documented as of this encounter
--- OUTSIDE RECORDS SUMMARY | 2025-02-14 15:23 | XMS_ITS | Encounter Summary ---
Author Organization [employer] Address [address] [facility] 7t [place] [address] Care Team Providers Care Lodging Facilities Attendant Name Role Phone Juan R Blount MD Primary Care Provide r Reason for Visit * Reason Comments Med Refill Encounter Details Date Type Department Care Team ([facility] st Contact Info) Description 06/27/2023 Refill [facility] CHC MED & PEDS [address] [place] [address] Aggie Guan MD 230 [place] [address] Primary insomnia Social History Tobacco Use Types [...] documented as of this encounter Care Teams Lodging Facilities Attendant Relationship Specialty Start Date End Date Juan R Blount MD [address] [place] [address] PCP - General Internal Medicine 12/09/13 Shasta Sutton Endocrinology 08/23/24 documented as of this encounter
--- OUTSIDE RECORDS SUMMARY | 2025-02-14 15:23 | XMS_ITS | Encounter Summary ---
Author Organization [employer] Address [address] [facility] [address] 7t [place] [address] Care Team Providers Care Human Resources Benefits Coordinator Name Role Phone Juan R Blount MD Primary Care Provide r Reason for Visit * Reason Comments Med Refill Encounter Details Date Type Department Care Team ([facility] st Contact Info) Description 02/04/2024 Refill [facility] MEDICINE 230 [place], [place] [phone] Lewis Carter MD 230 [place], [place] [phone] Social History Tobacco Use Types Packs/Day Years [...] documented as of this encounter Care Teams Human Resources Benefits Coordinator Relationship Specialty Start Date End Date Juan R Blount MD 230 [place] [address] PCP - General Internal Medicine 12/09/13 Shasta Sutton Endocrinology 08/23/24 documented as of this encounter
--- OUTSIDE RECORDS SUMMARY | 2025-02-14 15:23 | XMS_ITS | Encounter Summary ---
Author Organization [employer] Address 75 [facility] 7t [place] [address] Care Team Providers Care Participant Administrator Name Role Phone Juan R Blount MD Primary Care Provide r Reason for Visit * Reason Comments Med Refill Encounter Details Date Type Department Care Team ([facility] st Contact Info) Description 12/17/2024 Refill [facility] MEDICINE 230 [place], [place] [phone] Juan R Blount MD 230 [place], [place] [phone] Asthma, unspecified asthma severity, unspecified whether complicated, [...] [place] Subject: Script Requests Grebritney, I am (Nut Dehydrator Operator Ashley Ponce), Nut Dehydrator Operator for [facility] Care Management, requesting the following DME???s on behalf of patient. DME Item: Handheld Shower head, and non-slip bathmat Supportive DX: R29.6, E66.09 If you should have any inquiries regarding this request, feel free to contact the Nut Dehydrator Operator below. Nut Dehydrator Operator: Ashley Ponce E-mail: [email or web address] Public Affairs Specialist: Public Affairs Specialist Gayla Singh Phone: E-mail: [email or web address] Thanks in advance for your assistance with this request. Sincerely, [facility] Care Management documented in this encounter Plan of Treatment Not on file documented as of this encounter Visit Diagnoses Diagnosis Asthma, unspecified asthma severity, unspecified whether complicated, unspecified whether persistent documented in this encounter Additional Health Concerns Assessment Noted Time PHQ-9 Depression Total Score: 3 01/15/20 24 1:38 PM EDT documented as of this encounter Care Teams Participant Administrator Relationship Specialty Start Date End Date Juan R Blount MD [address] [place] [address] PCP - General Internal Medicine 12/09/13 Shasta Sutton Endocrinology 08/23/24 documented as of this encounter
--- OUTSIDE RECORDS SUMMARY | 2025-02-14 15:23 | XMS_ITS | Encounter Summary ---
Author Organization [employer] Address [address] [facility] [address] 7t [place] [address] Care Team Providers Care Senior Fund Accountant Name Role Phone Juan R Blount MD Primary Care Provide r Reason for Visit * Reason Comments Med Refill Encounter Details Date Type Department Care Team ([facility] st Contact Info) Description 02/11/2025 Refill [facility] [address] [place] [place], [place] [phone] Juan R Blount MD 230 [place], [place] [phone] Type 2 diabetes mellitus with hyperglycemia, with long-term current use of insulin (HCC) Social History Tobacco Use Types Packs/Day Years [...] housing situation today? I have olivercaleb romero 01/25/[address] you [...] as of this encounter Care Teams Senior Fund Accountant Relationship Specialty Start Date End Date Juan R Blount MD [address] [place] [address] PCP - General Internal Medicine 12/09/13 Shasta Sutton Endocrinology 08/23/24 documented as of this encounter
--- OUTSIDE RECORDS SUMMARY | 2025-02-14 15:23 | XMS_ITS | Encounter Summary ---
Author Organization [employer] Address [address] [facility] [facility] [address] 7[address] [place] [address] Care Team Providers Care Print Journalist Name Role Phone Juan R Blount MD Primary Care Provide r Encounter Details Date Type Department Care Team ([facility] Contact Info) Description 02/14/2025 Orders Only [facility] External Provider, [facility] Social History Tobacco Use Types Packs/Day Years [...] Procedure Name Priority Date/Time Associated Diagnosis Comments BD DEXA AXIAL Routine 02/14/2025 12:20 PM EDT documented in this encounter Results * BD DEXA Axial (02/14/2025 12:20 PM EDT) Anatomical Region Laterality Modality Body Radiographic Deneen ging 02/14/2025 12:2 0 PM EDT Narrative 02/14/2025 1:13 PM EDT [facility]'s [address] [place] [address] Mammography Report Signed Patient: Torrie Sy MR#: [id number] : 1955 Acct:[id number] Age/Sex: 70 / F ADM Date: 02/14/25 Loc: HO.MAMMO Attending Dr: Yesica Dennis MD Ordering Physician: Yesica Dnenis MD Results: Date of Service: 02/14/25 Follow Up: Procedure(s): XR DEXA axial skeleton Accession Number(s): [id number] cc: Juan R Bey MD; Yesica Dennis MD Reason For Exam: Osteopenia EXAMINATION: DXA BONE DENSITY AXIAL HISTORY: Osteopenia TECHNIQUE: Nualight Dual energy absorptiometry (DEXA) of the lumbar spine, total left hip, and femoral neck was performed. COMPARISON: Comparison is made with the prior examination dated 02/26/2023. FINDINGS: The bone mineral density of the lumbar spine is 1.267 g/cm2, corresponding to a T-score of 0.8, and a Z-score of 2.2. This is indicative of normal bone mineral density. This represents a BMD change of -3.9% compared to the prior exam. This is not statistically significant. The bone mineral density of the left total hip is 0.831 g/cm2, corresponding to a T-score of -1.4, and a Z-score of -0.2. This is indicative of osteopenia. This represents a BMD change of -5.8% compared to the prior exam. This is statistically significant. The bone mineral density of the left femoral neck is 0.690 g/cm2, corresponding to a T-score of -2.5, and a Z-score of -1.0. This is indicative of osteoporosis. This represents a BMD change of -4.6% compared to the prior exam. MM/XR DEXA axial skeleton IMPRESSION: Based on bone mineral density, and according to World Health Organization (WHO) criteria, the diagnosis is consistent with osteoporosis. Statistically, 68% of repeat scans fall within 1 SD (+/- 0.010 g/cm2 for AP spine L1-L4) and 1 SD (+/- 0.012 g/cm2 for femur total) FRAX is a trademark of the [employer] Metabolic Bone Disease, a World Health Organization (WHO) Collaborating Center. Electronically signed by: Caden Blood MD 02/14/2025 01:11 PM EDT Dictated By: Caden Blood MD Signed By: <Electronically signed by Caden Blood MD in OV> 02/14/25 1311 DD/ 1220 TD/TT: 02/14/25 1250 Senior Engineering Tech: Procedure Note Donotuseinterpreter, Image - 02/14/2025 [place] [facility]'s [address] [place], [place] [address] Mammography Report Signed Patient: Torrie Sy#: [id number] : 5Acct:[id number] Age/Sex: 70 / FADM Date: 02/14/25 Loc: TIVIVIO Attending Dr: Yesica Dennis MD Ordering Physician: Yesica Dennisesults: Date of Service: 02/14/25Follow Up: Procedure(s): XR DEXA axial skeleton Accession Number(s): [id number] cc: Juan R Bey MD; Yesica Dennis MD Reason For Exam: Osteopenia EXAMINATION: DXA BONE DENSITY AXIAL HISTORY: Osteopenia TECHNIQUE: Nualight Dual energy absorptiometry (DEXA) of the lumbar spine, total left hip, and femoral neck was performed. COMPARISON: Comparison is made with the prior examination dated 02/26/2023. FINDINGS: The bone mineral density of the lumbar spine is 1.267 g/cm2, corresponding to a T-score of 0.8, and a Z-score of 2.2. This is indicative of normal bone mineral density. This represents a BMD change of -3.9% compared to the prior exam. This is not statistically significant. The bone mineral density of the left total hip is 0.831 g/cm2, corresponding to a T-score of -1.4, and a Z-score of -0.2. This is indicative of osteopenia. This represents a BMD change of -5.8% compared to the prior exam. This is statistically significant. The bone mineral density of the left femoral neck is 0.690 g/cm2, corresponding to a T-score of -2.5, and a Z-score of -1.0. This is indicative of osteoporosis. This represents a BMD change of -4.6% compared to the prior exam. MM/XR DEXA axial skeleton IMPRESSION: Based on bone mineral density, and according to World Health Organization (WHO) criteria, the diagnosis is consistent with osteoporosis. Statistically, 68% of repeat scans fall within 1 SD (+/- 0.010 g/cm2 for AP spine L1-L4) and 1 SD (+/- 0.012 g/cm2 for femur total) FRAX is a trademark of the [employer] Metabolic Bone Disease, a World Health Organization (WHO) Collaborating Center. Electronically signed by: Caden Blood MD 02/14/2025 01:11 PM EDT RP Dictated By: Caden Blood MD Signed By: <Electronically signed by Caden Blood MD in OV> 02/14/25 1311 DD/ 1220 TD/TT: 02/14/25 1250 Senior Engineering Tech: [facility] External Provider IMG DXA PROCEDURES Final Result documented in this encounter Visit Diagnoses Not on filedocumented in this encounter Additional Health Concerns Assessment Noted Time PHQ-9 Depression Total Score: 5 01/26/20 25 1:00 PM EDT documented as of this encounter Care Teams Print Journalist Relationship Specialty Start Date End Date Juan R Blount MD 230 [place] [address] PCP - General Internal Medicine 12/09/13 Sh[facility] Sutton Endocrinology 08/23/24 documented as of this encounter
--- OUTSIDE RECORDS SUMMARY | 2025-02-14 15:23 | XMS_ITS | Encounter Summary ---
Author Organization [employer] Address 75 [facility] 7t [place] [address] Care Team Providers Care Parakeet Raiser Name Role Phone Juan R Blount MD Primary Care Provide r Reason for Visit * Reason Comments Med Refill Encounter Details Date Type Department Care Team ([facility] st Contact Info) Description 06/27/2023 Refill [facility] CHC MED & PEDS [address] [place] [address] Aggie Guan MD 230 [place] [address] Primary insomnia Social History Tobacco Use Types [...] documented as of this encounter Care Teams Parakeet Raiser Relationship Specialty Start Date End Date Juan R Blount MD [address] [place] [address] PCP - General Internal Medicine 12/09/13 Shasta Sutton Endocrinology 08/23/24 documented as of this encounter
--- OUTSIDE RECORDS SUMMARY | 2025-02-14 15:23 | XMS_ITS | Patient Health Record ---
Author Organization [facility] Address [address] [place] [address] Care Team Providers Care Can Sealer Name Role Phone Angelito Vega MD, Juan R Primary Care Provide r Caden Berry [phone] Reason For Referral No Information Encounters Encounter Location Date Provider Diagnosis [facility] [address] [place] [address] 05/24/2024 Caden Huffman Plan Of Treatment No Information Insurance Providers Payer Name Payer Address Payer Phone Subscriber Number Group Number Insured Name Patient Relationship to Insured Coverage Start Date Coverage End Date [facility] [address] [place] [address] [id number] MERCEDES BRUSH Self - patient is the insured
--- OUTSIDE RECORDS SUMMARY | 2025-02-14 15:24 | XMS_ITS | Clinical Summary ---
Author Organization [employer] Address [address] [facility] [address] [place] [address] Care Team Providers Care Front Office Director Name Role Phone Juan R Blount MD Primary Care Provide r Allergies Active Allergy Reactions Criticality Noted Date Comments Kurt Inhibitors Cough Acetaminophen Other reaction(s): rash Albuterol Other reaction(s): rash Insulin Other reaction(s): rash Iodine Other reaction(s): rash Latex Other reaction(s): unspecified Medroxyprogesterone Other reaction(s): rash Penicillin V Rash Low 01/07/2024 Medications Continuous Blood Gluc Radiation Control Worker (FreeStyle Crystal 2 [place]) deviceIndication s:Type 2 diabetes mellitus with hyperglycemia, with long-term current use of insulin ([facility]) 1 Device before breakfast, before lunch, and before evening meal. 1 each 023 Active Continuous Blood Gluc Sensor (FreeStyle Crystal 2 Sensor) miscIndications: Type 2 diabetes mellitus with hyperglycemia, with long-term current use of insulin ([facility]) 1 Device [...] insulin (HCC) TAKE 1 TABLET BY MOUTH EVERY MORNING 90 tablet 3 025 Active amLODIPine (Norvasc) 5 MG tabletIndication s:Essential hypertension TAKE 1 TABLET BY MOUTH EVERY EVENING 90 tablet 3 Active TRUEplus Lancets 33G miscIndications: Type 2 diabetes mellitus with hyperglycemia (HCC),senior living (current) use of insulin (CMS/HCC) ([facility]) TEST BLOOD SUGAR FOUR TIMES DAILY 300 each 11 Active glucose blood (FREESTYLE LITE) test stripIndications :Type 2 diabetes mellitus with hyperglycemia (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),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 (CMS/HCC) ([facility]) TEST BLOOD SUGAR FOUR TIMES DAILY 300 strip Active clotrimazole (Lotrimin) 1 % cream APPLY TOPICALLY TWICE DAILY FOR 28 DAYS 30 g 5 Active Ventolin HFA 108 (90 Base) MCG/ACT [...] SUBCUTANEOUSLY THREE TIMES DAILY DIRECTED 15 mL Active atenolol (Tenormin) 25 MG tabletIndication s:Essential [...] with long-term current use of insulin ([facility]) USE DIRECTED FOUR TIMES DAILY 100 each 5 025 Active Incruse Ellipta 62.5 MCG/ACT aerosol powderIndication s:Wheeze INHALE 1 PUFF BY MOUTH EVERY DAY AT THE SAME TIME RINSE MOUTH AFTER USING 30 each 1 025 Active gabapentin (Neurontin) 800 MG tabletIndication s:Type 2 diabetes mellitus with hyperglycemia, with long-term current use of insulin ([facility]) TAKE 1 TABLET BY MOUTH THREE TIMES DAILY IN THE MORNING, AT NOON, AND IN THE EVENING 90 tablet 2 025 Active zolpidem (Ambien) 10 MG tabletIndication s:Primary insomnia TAKE 1 TABLET BY MOUTH AT BEDTIME NEEDED FOR SLEEP 30 tablet 025 Active Trulicity 4.5 MG/0.5ML solution auto-injectorInd ications:Type 2 diabetes mellitus with hyperglycemia, with long-term current use of insulin ([facility]) INJECT ONE PEN (= 4.5MG) SUBCUTANEOUSLY ONCE A WEEK DIRECTED 2 mL 3 025 Active Dulaglutide 4.5 MG/0.5ML solution auto-injectorInd ications:Type 2 diabetes mellitus with hyperglycemia, with long-term current use of insulin ([facility]) Inject 4.5 mg under the skin 1 (one) time per week. 2 mL 3 025 2024 Discontinued gabapentin (Neurontin) 800 MG tabletIndication s:Type 2 diabetes mellitus with hyperglycemia, with long-term current use of insulin ([facility]) TAKE 1 CAPSULE BY MOUTH THREE TIMES DAILY IN THE MORNING, AT NOON, AND IN THE EVENING 90 tablet 2 025 2024 Discontinued Umeclidinium Widen (Incruse Ellipta) 62.5 MCG/ACT aerosol powderIndication s:Wheeze [...] hypertensive, diabetic and a smoker. Seen by Payroll Accountant Dr Sarmiento 10/20/2024 He ordered an ECHO [...] rare follicular cells seen in the sample, Kawkawlin category 1. She discussed with the patient that nondiagnostic results yield a 5-20% risk of malignancy. At this point the plan is to repeat the biopsy in about 3 months. Sticker On will arrange for repeat FNA left mid [...] 1:39 PM EDT): Patient was admitted to [facility] from 12/26-12/28/2023 For evaluation of intermittent right [...] the ER MRI Brain 12/28/2023 negative at [facility] Etiology ? Neuropathy, Lumbar radiculopathy Pt also [...] requested from Neurology She was seen at [facility] 08/2024 and was supposed to [...] Pt is now under the care of Anthropologist Physical Dr Holm last seen 05/11/2019 He ordered [...] Eye exam was last done on: 08/2022 [facility] No retinopathy Microalbumin checked on: [...] Eye exam was last done on: 08/2022 [facility] No retinopathy Microalbumin checked on: [...] Eye exam was last done on: 08/2022 [facility] No retinopathy Microalbumin checked on: [...] of Ambien 10mg po qhs prescribed by pr Patient denies any suicidal ideation or thoughts, Patient has crisis numbers and knows to use them if needed Assessment & Plan (11/19/2022 9:53 AM EDT): Pt here for a f/u Is seeing a psychotherapist Sims On a regimen of Ambien 10mg po qhs prescribed by pr Patient denies any suicidal ideation or thoughts, Patient has crisis numbers and knows to use them if needed Encounters Date Type Department Care Team Description 02/14/2025 Orders Only [facility] External Provider, [facility] 02/11/2025 Refill [facility] [address] [place] [address] Juan R Blount MD Type 2 diabetes mellitus with hyperglycemia, with long-term current use of insulin (HCC) 02/10/2025 Orders Only GENERIC EXTERNAL DATA DEPARTMENT Provider, Generic External Data 02/03/2025 Telephone [facility] [address] [place] [phone] Juan R Blount MD Prior Authorization 01/26/2025 Orders Only GENERIC EXTERNAL DATA DEPARTMENT Provider, Generic External Data 01/25/2025 1:00 PM EDT Office Visit [facility] [address] [place] [address] Juan R Blount MD Malignant neoplasm of right female breast, unspecified estrogen receptor status, unspecified site of breast (CMS/HCC) (HCC) (Primary Dx); Type 2 diabetes mellitus with diabetic polyneuropathy, with long-term current use of insulin (HCC); Depressive disorder 01/25/2025 Travel 2025 Telephone [facility] [address] [place] [phone] Juan R Blount MD chart prep 01/21/2025 Orders Only GENERIC EXTERNAL DATA DEPARTMENT Provider, Generic External Data 01/20/2025 Refill [facility] [address] [place], [place] [phone] Juan R Blount MD Primary insomnia 01/18/2025 Patient Outreach [facility] [address] [place] [phone] Juan R Blount MD Pre-visit Planning ((Unable to reach for PVP screening, LVM) to be completed in office ) 01/18/2025 Refill [facility] [address] [place] [address] Juan R Blount MD Type 2 diabetes mellitus with hyperglycemia, with long-term current use of insulin (CMS/HCC) 01/15/2025 Refill [facility] [address] [place] [phone] Juan R Blount MD Wheeze 01/13/2025 Orders Only GENERIC EXTERNAL DATA DEPARTMENT Provider, Generic External Data 01/13/2025 Refill [facility] [address] [place] [address] Juan R Blount MD Type 2 diabetes mellitus with hyperglycemia, with long-term current use of insulin (CMS/HCC) 01/11/2025 Orders Only GENERIC EXTERNAL DATA DEPARTMENT Provider, Generic External Data 01/08/2025 Refill [facility] [address] [place] [address] Juan R Blount MD Type 2 diabetes mellitus without complication, with long-term current use of insulin (CMS/HCC) 12/29/2024 Orders Only GENERIC EXTERNAL DATA DEPARTMENT Provider, Generic External Data 12/27/2024 Refill [facility] [address] [place] [address] Aggie Guan MD Primary insomnia 12/24/2024 Telephone [facility] [address] [place] [address] Juliana Goode RN [facility] Neurology 12/23/2024 1:15 PM EDT Office Visit [facility] [address] [place] [address] Juan R Blount MD Type 2 diabetes [...] Preventative health care 12/23/2024 Travel 12/21/2024 Refill [facility] [address] [place] [address] Juan R Blount MD Wheeze 12/17/2024 Refill [facility] [address] [place] [address] Juan R Blount MD Asthma, unspecified asthma severity, unspecified whether complicated, unspecified whether persistent 12/14/2024 Orders Only GENERIC EXTERNAL DATA DEPARTMENT Provider, Generic External Data 12/09/2024 Refill [facility] [address] [place] [address] Juan R Blount MD Mixed hyperlipidemia; Wheezing 12/02/2024 Telephone [facility] [address], [place] [phone] Juan R Blount MD GSSS QUESTIONS from Last 3 Months Immunizations Immunization Administration [...] DEXA AXIAL Routine 02/14/2025 12:20 PM EDT GLUCOSE, WHOLE BLOOD Routine 02/10/2025 12:43 PM [...] MYOCARDIAL PERFUSION Routine 11/25/2024 9:41 AM EDT LIPID PANEL, STANDARD Routine 10/18/2024 2:56 PM EDT ALBUMIN, RANDOM URINE W/CREATININE Routine 10/18/2024 2:55 PM EDT HEPATITIS PANEL, GENERAL Routine 02/05/2024 9:25 AM EDT from Last 3 Months or Most Recently Relevant to Health Maintenance Results * BD DEXA Axial (02/14/2025 12:20 PM EDT) Anatomical Region Laterality Modality Body Radiographic Deneen ging 02/14/2025 12:2 0 PM EDT Narrative 02/14/2025 1:13 PM EDT [facility] [place], [place] [address] Mammography Report Signed Patient: Torrie Sy MR#: [id number] : 1955 Acct:[id number] Age/Sex: 70 / F ADM Date: 02/14/25 Loc: [facility] Attending Dr: Yesica Dennis MD Ordering Physician: Yesica Dennis MD Results: Date of Service: 02/14/25 Follow Up: Procedure(s): XR DEXA axial skeleton Accession Number(s): [id number] cc: Juan R Bey MD; Yesica Dennis MD Reason For Exam: Osteopenia EXAMINATION: DXA BONE DENSITY AXIAL HISTORY: Osteopenia TECHNIQUE: Vidible Dual energy absorptiometry (DEXA) of the lumbar [...] is a trademark of the [employer] [place] for Metabolic Bone Disease, a World Health Organization (WHO) Collaborating Center. Electronically signed by: Caden Blood MD 02/14/2025 01:11 PM EDT Dictated By: Caden Blood MD Signed By: <Electronically signed by Caden Blood MD in OV> 02/14/25 1311 DD/ 1220 TD/TT: 02/14/25 1250 Feather Drying Machine Operator: Procedure Note Donotuseinterpreter, Image - 02/14/2025 [facility] [address] [place] [address] Mammography Report Signed Patient: Torrie Sy#: [id number] : 5Acct:[id number] Age/Sex: 70 / FADM Date: 02/14/25 Loc: [facility] Attending Dr: Yesica Dennis MD Ordering Physician: Yesica Dennisesults: Date of Service: 02/14/25Follow Up: Procedure(s): XR DEXA axial skeleton Accession Number(s): [id number] cc: Juan R Bey MD; Yesica Dennis MD Reason For Exam: Osteopenia EXAMINATION: DXA BONE DENSITY AXIAL HISTORY: Osteopenia TECHNIQUE: Vidible Dual energy absorptiometry (DEXA) of the lumbar [...] is a trademark of the [employer] [place] for Metabolic Bone Disease, a World Health Organization (WHO) Collaborating Center. Electronically signed by: Caden Blood MD 02/14/2025 01:11 PM EDT Dictated By: Caden Blood MD Signed By: <Electronically signed by Caden Blood MD in OV> 02/14/25 1311 DD/ 1220 TD/TT: 02/14/25 1250 Feather Drying Machine Operator: [facility] External Provider IMG DXA PROCEDURES Final Result * (ABNORMAL) Glucose, Whole Blood (02/10/2025 12:43 PM EDT) Only the most recent of2 resultswithin the time period is included. Glucose, Whole Blood 208(H) 60 - 115 mg/dL [facility] Comment:METER #: [id number] Testing performed in the Endocrinology Department [address] , [address], [facility]. 02/10/2025 12:4 3 PM EDT 02/10/2025 12:47 PM EDT us Generic External Data Provider LAB BLOOD ORDERAB LES Final Result Performing Organization Address City/State/[facility] Co de Phone Number [facility] [address] [place] [phone] * Fine needle aspiration (01/26/2025 11:13 AM EDT) 01/26/2025 11:1 3 AM EDT 01/27/2025 9:06 AM EDT Narrative [facility] - 01/28/2025 8:12 AM EDT ----- ------- Name: Torrie Sy Age/Sex: 70/F : 1955 Unit#: [id number] Attend Dr: Eduarda Quintanilla MD Re01/26/25 Status: DEP REF Location: [facility] Disch: ----- ------- SPEC : [id number] RECD: 01/27/25 STATUS: AMY WEBSTER NUM: [id number] [place]: 01/26/[address] [facility] [address]: Eduarda Quintanilla MD ENTERED: 01/27/25 SP TYPE: Cytology OTHR DR: Juan R Bey MD ORDERED: Fine Ndl Asp Diagnosis Thyroid, left mid lower pole 3.3 cm nodule, fine needle aspiration: Benign (Kawkawlin category II). COMMENT: Satisfactory for evaluation; paucicellular [...] developed and their performance characteristics determined by [facility]. They have not been cleared or approved by the U.S. Food and Drug Administration (FDA). However, the FDA has determined that such clearance or approval is not necessary. This laboratory is certified under the Clinical Laboratory Improvement Amendments of 1988 (CLIA) as qualified to perform high complexity clinical laboratory testing. Copies To: Juan R Bey MD [address] [address] Eduarda Quintanilla MD [facility] Endocrinology [address] [address] [email or web address] CONTINUED ON NEXT PAGE ----- ------- Name: Torrie Sy Age/Sex: 70/F : 1955 Unit#: [id number] Attend Dr: Eduarda Quintanilla MD Re01/26/25 Status: DEP REF Location: [facility] Disch: ----- ------- SPEC : [id number] RECD: 01/27/25 STATUS: AMY WEBSTER NUM: [id number] [place]: 01/26/[address] [facility] [address]: Eduarda Quintanilla MD ENTERED: 01/27/25-5 SP TYPE: Cytology OTHR DR: Juan R Bey MD ORDERED: Maria Del Carmen Tomlinson Asp ----- ------- Signed (signature on file) Jez_ Juan Blunt MD 01/28/25811 ----- ------- END OF REPORT Generic External Data Provider LAB CYTOLOGY STEVAN PEREZ Final Result [facility] [address] [place] [phone] [phone] * (ABNORMAL) POCT Hgb A1c (01/25/2025 1:07 PM EDT) Hemoglobin A1C 9.0(A) 4.0 - 5.7 % QC Media Lot # [id number] Lot# Expiration Date ,021,845 Blood 01/25/2025 1:07 PM EDT Juan R Vega MD POINT OF CARE TEST EN TER/EDIT ORDERABLES Final Result * (ABNORMAL) Vitamin D, 25-Hydroxy, Total, Immunoassay (01/21/2025 11:49 AM EDT) Vitamin D 25-OH Total 14.6(L) >30 ng/mL [facility] Comment: Health Based Reference Values*< 20 ng/mL Knitihxwj49-64 ng/mL Insufficient> 30 ng/mL Sufficient*Heena LUNDBERG. N [...] Provider LAB BLOOD ORDERAB LES Final Result [facility] [address] [place] [address] [phone] * (ABNORMAL) CBC auto differential (01/21/2025 11:49 AM EDT) White Blood Count 12.9(H) 4.8 - 10.8 X10*3/uL [facility] Red Blood Count 3.87(L) 4.20 - 5.50 X10*6/uL [facility] Hemoglobin 11.6(L) 12.0 - 16.0 g/dl [facility] Hematocrit 35.4(L) 37.0 - 47.0 % [facility] Mean Corpuscular Volume 91.5 80.0 - 98.0 fL [facility] Mean Corpuscular Hemoglobin 30.0 27.0 - 33.0 pg [facility] Mean Corpuscular HGB Conc 32.8 31.0 - 35.0 g/dl [facility] Red Cell Distribution Width 13.4 11.0 - 16.0 % [facility] Platelet Count 371 160 - 400 X10*3/uL [facility] Mean Platelet Volume 10.2 9.4 - 12.3 fL [facility] Neutrophils Percent Auto 75.3(H) 45 - 73 % [facility] Imm Gran Pct Auto 0.5(H) 0.0 - 0.4 % [facility] Lymphocytes Percent Auto 17.9(L) 20 - 40 % [facility] Monocytes Percent Auto 4.1 2 - 11 % [facility] Eosinophils Percent Auto 1.2 0 - 4 % [facility] Basophils Percent Auto 1.0 0 - 2 % [facility] NRBC Pct Auto 0.0 0.0 - 0.2 /100WBC [facility] Neutrophils Absolute Auto 9.7(H) 2.0 - 8.3 x10*3/uL [facility] Imm Gran Abs Auto 0.07(H) 0.00 - 0.03 X10*3/uL [facility] Lymphocytes Absolute Auto 2.3 1.2 - 4.9 X10*3/uL [facility] Monocytes Absolute Auto 0.5 0.1 - 1.2 X10*3/uL [facility] Eosinophils Absolute Auto 0.2 0.0 - 0.4 X10*3/uL [facility] Basophils Absolute Auto 0.1 0.0 - 0.2 X10*3/uL [facility] NRBC Abs Auto 0.000 0.0 - 0.012 X10*3/uL [facility] 01/21/2025 11:4 9 AM EDT 01/21/2025 11:49 AM EDT Generic External Data Provider LAB BLOOD ORDERAB LES Final Result Performing Organization Address [facility] de Phone Number [facility] [address] [place] [phone] * Cancer antigen 27.29 (01/21/2025 11:49 AM EDT) CA 27.29 29 <38 U/mL [facility] Comment:This test was perfor med using the SiemensChemiluminescent method. Values obtained fromdifferent assay methods cannot be usedinterchangeably. CA 27.29 levels, regardless ofvalue, should not be interpreted as absoluteevidence of the presence or absence of disease.THIS TEST WAS PERFORMED AT:[employer] [place] [phone] DEVRIES MD 01/21/2025 11:4 9 AM EDT 01/21/2025 11:49 AM EDT us Generic External Data Provider LAB BLOOD ORDERAB LES Final Result Performing Organization Address [facility]/ZIP Co de Phone Number [facility] [address] [place] [address] [place] [phone] * (ABNORMAL) Comprehensive Metabolic Panel (01/21/2025 11:49 AM EDT) Sodium 140 135 - 145 mmol/L [facility] Potassium 4.6 3.3 - 5.1 mmol/L [facility] Chloride 105 96 - 108 mmol/L [facility] Carbon Dioxide 27 22 - 29 mmol/L [facility] Anion Gap 13 12 - 20 [facility] Urea Nitrogen (BUN) 13 9 - 16 mg/dL [facility] Creatinine, Serum 0.72 0.5 - 1.4 mg/dL [facility] Creatinine Clr Calc Pharmacy TNP [facility] Comment:Unable to calculate eCrCL; all parameters not provided. Estimated Glomerular Filt Rate >60 [facility] Comment:Chronic Kidney Disea se: Estimated GFR < 60 mL/min/1.77s2Hlnicx Kidney Disease: Estimated GFR < 15 mL/min/1.73m2 Glucose 218(H) 60 - 115 mg/dL [facility] Calcium 9.2 8.4 - 10.2 mg/dL [facility] Bilirubin, Total 0.5 0.0 - 1.0 mg/dL [facility] Aspartate Amino Transferase 14 5 - 31 U/L [facility] Alanine Aminotransferase <6 0 - 31 U/L [facility] Total Protein 7.0 6.5 - 8.0 g/dL [facility] Albumin Level 4.0 3.5 - 5.0 g/dL [facility] Alkaline Phosphatase 121(H) 39 - 117 U/L [facility] 01/21/2025 11:4 9 AM EDT 01/21/2025 11:49 AM EDT us Generic External Data Provider LAB BLOOD ORDERAB LES Final Result [facility] [address] [place] [address] [phone] * Gross and Microscopic Level 5 (01/13/2025 1:28 PM EDT) 01/13/2025 1:28 PM EDT 01/13/2025 2:55 PM EDT Kostas [facility] - 01/18/2025 10:35 AM EDT ----- ------- Name: Torrie Sy Age/Sex: 69/F [facility] 1955 [id number]#: [id number] Attend Dr: George Bearden MD Re01/13/25 Status: [facility] Disch: ----- ------- SPEC : [id number] RECD: 01/13/25-5164 STATUS: AMY WEBSTER NUM: [id number] [place]: 01/13/25-[address] [facility] [address]: George Bearden MD ENTERED: 01/13/25-1517 [...] fat necrosis, without evidence of definitive lesion. Training And Development Head sections are submitted sequentially from superior to inferior in cassettes A1 -10, to include A1 superior margin perpendicular and A10 inferior margin perpendicular. (DTL) This case was reviewed intradepartmentally. IHC S/NG Disclaimer NOTE: Unless otherwise stated, all tissue is formalin-fixed and paraffin-embedded. Some or all of the immunohistochemical tests reported herein may have been developed and their performance characteristics determined by [facility]. They have not been cleared or [...] Name: Torrie Sy Age/Sex: 69/F : 1955 [id number] Unit#: [id number] Attend Dr: George Bearden MD Re01/13/25 Status: [facility] Location: [facility] Disch: ----- ------- SPEC : [id number] RECD: 01/13/25 STATUS: AMY WEBSTER NUM: [id number] [place]: 01/13/25-[address]: George Bearden MD ENTERED: 01/13/25151 SP TYPE: Surgical OTHR DR: Juan R Bey MD ORDERED: Gross Micro L5 Copies To: Juan R Bey MD [address] [address] George Bearden MD [facility] General Surgeons [address] [place] [phone] ----- ------- Signed (signature on file) Anna Talley 01/18/25 1035 ----- ------- END OF REPORT us Generic External Data Provider LAB BLOOD ORDERAB LES Final Result [facility] [address] [place] [address] [phone] * Pathology Report (01/11/2025 3:53 PM EDT) 01/11/2025 3:53 PM EDT 01/13/2025 8:35 AM EDT [facility] - 01/17/2025 2:02 PM EDT ----- ------- Name: Torrie Sy Age/Sex: 69/F : 1955 [id number] Unit#: [id number] Attend Dr: George Bearden MD Re12/27/24 Status: [facility] Location: [facility] Disch: ----- ------- SPEC : [id number] RECD: 01/13/25 STATUS: AMY ELEANOR NUM: [id number] [place]: 01/11/25-[address] [facility] [address]: George Bearden MD ENTERED: 01/13/25 SP TYPE: Surgical OTHR DR: Juan R Bey MD ORDERED: Consult. refer. Diagnosis A. Breast, right, asymmetry with calcifications, 9:00, 7 cm from nipple, core biopsy (consult slides from [facility], Surgical Pathology Service #[id number]): -Invasive ductal carcinoma with lobular features, MSBR grade 1. -Focus suspicious for ductal carcinoma in situ. B. Breast, right, asymmetry tissue, 9:00, 7 cm from nipple, core biopsy (consult slides from [facility], Surgical Pathology Service #[id number]): -Invasive ductal carcinoma with lobular features, MSBR [...] Torrie Sy Age/Sex: 69/F : 1955 Unit#: [id number] Attend Dr: George Bearden MD Re12/27/24 Status: DEP REF Location: [facility] Disch: ----- ------- SPEC : [id number] RECD: 01/13/25 STATUS: AMY WEBSTER NUM: [id number] [place]: 01/11/251553 [facility] DR: George Bearden MD ENTERED: 01/13/25 [...] consult Gross Description Received for consultation from [facility], [place], [place] are 9 slides labeled with the patient's name, date of , and [id number] (4 H E (A1-1, A1-3, B1- 1, B1-3) and 5 IHC (B1-4 ER, B1-5 VT, B1-6 VLV0KRV, B1-7 E-CAD, B1-8 B-CATN)). Also received is a copy of the pathology report with a collection date of 09/23/2024. JGD Note: ER and VT immunostains are scored [...] less than 10% of the tumor. See [facility] report for staining method. IHC S/NG Disclaimer NOTE: Unless otherwise stated, all tissue is formalin-fixed and paraffin-embedded. Some or all of the immunohistochemical tests reported herein may have been developed and their performance characteristics determined by [facility]. They have not been cleared or [...] Torrie Sy Age/Sex: 69/F : 1955 Unit#: [id number] Attend Dr: George Bearden MD Re12/27/24 Status: DEP [facility] Disch: ----- ------- SPEC : [id number] RECD: 01/13/25 STATUS: AMY ELEANOR NUM: [id number] HAILEY: 01/11/[address] [facility] [address]: George Bearden MD ENTERED: 01/13/25 SP TYPE: Surgical OTHR DR: Juan R Bey MD ORDERED: Consult. refer. Copies To: Juan R Bey MD [address] [phone] George Bearden MD [facility] General Surgeons [address] [place] [phone] ----- ------- Signed (signature on file) Anna Paradise 01/17/25 1402 ----- ------- END OF REPORT us Generic External Data Provider HISTORICAL/NON OR DERABLE LABS Final Result [facility] [address] [place] [phone] * Hematoxylin and Eosin Stain (12/29/2024 12:49 PM EDT) 12/29/2024 12:4 9 PM EDT 12/29/2024 12:59 PM EDT Kostas [facility] - 01/18/2025 11:08 AM EDT ----- ------- Name: Torrie Sy Age/Sex: 69/F : 1955 Unit#: [id number] Attend Dr: George Bearden MD Re12/29/24 Status: [facility] Location: [facility] Disch: ----- ------- SPEC : [id number] RECD: 12/29/24-125 STATUS: AMY WEBSTER NUM: [id number] HAILEY: 12/29/24-[address]: George Bearden MD ENTERED: 12/29/24-1304 SP TYPE: Surgical OTHR DR: Juan R Bey MD ORDERED: HE Stain/6, Gross Micro L3, Gross Micro L5/5, Cytokeratin/6, ER/4, VT, IOC, IHC/5, Add. immunos/3, IHC ER/VT/Her2N/4, CK5-6/4, E-cadherin, Ki-67, [id number] COMMENTS: Cassettes A1-A10 are placed in formalin at 1327. Addendum Addendum 1 Entered: 01/18/25-1107 (A): [employer] HER2 FISH analysis: Result: Negative Interpretation: HER2 [...] section. Addendum Signed (signature on file) Anna Paradise 01/18/25 1108 ----- ------- Diagnosis A. Breast, [...] Torrie Sy Age/Sex: 69/F : 1955 Unit#: [id number] Attend Dr: George Bearden MD Re12/29/24 Status: [facility] Location: [facility] Disch: ----- ------- SPEC : [id number] RECD: 12/29/24-1258 STATUS: AMY WEBSTER NUM: [id number] HAILEY: 12/29/24-[address] [facility] [address]: George Bearden MD ENTERED: 12/29/24-1304 SP TYPE: Surgical OTHR DR: Juan R Bey MD ORDERED: HE Stain/6, Gross Micro L3, Gross Micro L5/5, Cytokeratin/6, ER/4, VT, IOC, IHC/5, Add. immunos/3, IHC ER/VT/Her2N/4, CK5-6/4, E-cadherin, Ki-67, [id number] COMMENTS: Cassettes A1-A10 are placed in formalin [...] Torrie Sy Age/Sex: 69/F : 1955 Unit#: [id number] Attend Dr: George Bearden MD Re12/29/24 Status: [facility] Location: [facility] Disch: ----- ------- SPEC : [id number] RECD: 12/29/24-1259 STATUS: IDALIASaad WEBSTER NUM: [id number] HAILEY: 12/29/24-[address] [facility] [address]: George Bearden MD ENTERED: 12/29/24-1304 SP TYPE: Surgical OTHR DR: Juan R Bey MD ORDERED: HE Stain/6, Gross Micro L3, Gross Micro L5/5, Cytokeratin/6, ER/4, VT, IOC, IHC/5, Add. immunos/3, IHC ER/VT/Her2N/4, CK5-6/4, E-cadherin, Ki-67, [id number] COMMENTS: Cassettes A1-A10 are placed in formalin at 1327. Diagnosis (Continued) [place] nodes: 3 Axillary nodes: 0 Number involved: [...] Torrie Sy Age/Sex: 69/F : 1955 Unit#: [id number] Volodym[facility] Dr: George Bearden MD Re12/29/24 Status: [facility] Location: [facility] Disch: ----- ------- SPEC : [id number] RECD: 12/29/24 STATUS: AMY WEBSTER NUM: [id number] HAILEY: 12/29/24-1249 KENNEDI BORREGO: George Bearden MD ENTERED: 12/29/24130 SP TYPE: Surgical OTHR DR: Juan R Bey MD ORDERED: HE Stain/6, Gross Micro L3, Gross Micro L5/5, Cytokeratin/6, ER/4, VT, IOC, IHC/5, Add. immunos/3, IHC ER/VT/Her2N/4, CK5-6/4, E-cadherin, Ki-67, [id number] COMMENTS: Cassettes A1-A10 are placed in formalin at 1327. Material Received A. Right breast lumpectomy B. [place] node #1, count 1497 C. Additional axillary tissue D. [place] node #2, count 273 E. [place] node #3, count 204 F. Anterior inferior [...] other cysts, lesions or nodules are identified. Training And Development Head sections are submitted in cassettes A1-A10 from [...] Torrie Sy Age/Sex: 69/F : 1955 Unit#: [id number] Attend Dr: George Bearden MD Re12/29/24 Status: [facility] Location: [facility] Disch: ----- ------- SPEC : [id number] RECD: 12/29/24 STATUS: AMY WEBSTER NUM: [id number] HAILEY: 12/29/[address] [facility] [address]: George Bearden MD ENTERED: 12/29/24 SP TYPE: Surgical OTHR DR: Juan R Bey MD ORDERED: HE Stain/6, Gross Micro L3, Gross Micro L5/5, Cytokeratin/6, ER/4, VT, IOC, IHC/5, Add. immunos/3, IHC ER/VT/Her2N/4, CK5-6/4, E-cadherin, Ki-67, [id number] COMMENTS: Cassettes A1-A10 are placed in formalin [...] lobular fat. No lymph nodes are identified. Training And Development Head sections are submitted in a cassette labeled [...] surface is focally cauterized, zelaya, white-pink and baen-yellow consistent with prior biopsy side. The convex [...] micronodular focus along the prior biopsy side. Training And Development Head sections perpendicular to the anterior-inferior margins are submitted in cassettes F1-F10, from medial to lateral, respectively. CEDS Interpretive Information CONTINUED ON NEXT PAGE ----- ------- Name: Torrie Sy Age/Sex: 69/F : 1955 Unit#: [id number] Attend Dr: George Bearden MD Re12/29/24 Status: [facility] Location: [facility] Disch: ----- ------- SPEC : [id number] RECD: 12/29/24 STATUS: AMY WEBSTER NUM: [id number] HAILEY: 12/29/[address] [facility] [address]: George Bearden MD ENTERED: 12/29/245351 SP TYPE: Surgical OTHR DR: Juan R Bey MD ORDERED: HE Stain/6, Gross Micro L3, Gross Micro L5/5, Cytokeratin/6, ER/4, VT, IOC, IHC/5, Add. immunos/3, IHC ER/VT/Her2N/4, CK5-6/4, E-cadherin, Ki-67, [id number] COMMENTS: Cassettes A1-A10 are placed in formalin at 1327. Gross Description (Continued) All tests are performed on formalin-fixed, paraffin-embedded tissue using automated immunostain methods: Estrogen receptor: Clone SP1; Hyder CONFIRM [employer] [place] DAB Progesterone receptor: Clone 1E2; Hyder CONFIRM [employer] [place] DAB HER2: FDA-approved Hyder PATHWAY anti-HER-2/gail (4B5) Monoclonal; [employer] [place] DAB Positive and negative controls are [...] and Progesterone Receptor Testing in Breast Cancer: [place] Society of Clinical Oncology/College of [place] Pathologists Guideline Update. Arch of Pathol Lab Med. 2020; 144(5): 545-563. CONTINUED ON NEXT PAGE ----- ------- Name: Torrie Sy Age/Sex: 69/F : 1955 Unit#: [id number] Attend Dr: George Bearden MD Re12/29/24 Status: [facility] Location: [facility] Disch: ----- ------- SPEC : [id number] RECD: 12/29/24 STATUS: AMY WEBSTER NUM: [id number] HAILEY: 12/29/[address] [facility] [address]: George Bearden MD ENTERED: 12/29/24 SP TYPE: Surgical OTHR DR: Juan R Bey MD ORDERED: HE Stain/6, Gross Micro L3, Gross Micro L5/5, Cytokeratin/6, ER/4, VT, IOC, IHC/5, Add. immunos/3, IHC ER/VT/Her2N/4, CK5-6/4, E-cadherin, Ki-67, [id number] COMMENTS: Cassettes A1-A10 are placed in formalin at 1327. Gross Description (Continued) Arely AC, Roosevelt MAYESH, Marie KH, et al. Her2 testing in breast cancer: [place] Society of Clinical Oncology/College of [place] Pathologists clinical practice guideline focused update. Arch Pathol Lab Med. 2018; 142(11): 8870-9387. Mitch N, Lion P, et al. Adjuvant abemaciclib combined with endocrine therapy for high- risk early breast cancer: updated efficacy and Ki-67 analysis from the [facility] study. Lita Oncol. 2020;32(12):6537-5631. Roosevelt MAYES, Yossi DF, et al. ASCO/CAP Guideline Recommendations for Immunohistochemical Testing of Estrogen and Progesterone Receptors in Breast Cancer. J Clin Oncol, 28 (16), 2010: 4295-9507. This case was reviewed intradepartmentally. Results given to Dr. Bearden by secure text by Dr. Talley on 01/05/2025 at 4:43 pm. Special studies ordered and performed: Immunostains for CK 5/6 and ER on A3, F4, and F10; ER, VT, HER2 and Ki 67 on A5; pankeratin on B1, D1 and E1. IHC S/NG Disclaimer NOTE: Unless otherwise stated, all tissue is formalin-fixed and paraffin-embedded. Some or all of the immunohistochemical tests reported herein may have been developed and their performance characteristics determined by [facility]. They have not been cleared or approved by the U.S. Food and Drug Administration (FDA). However, the FDA has determined that such clearance or approval is not necessary. This laboratory is certified under the Clinical Laboratory Improvement Amendments of 1988 (CLIA) as qualified to perform high complexity clinical laboratory testing. Copies To: Juan R Bey MD [address] [phone] George Bearden MD [facility] Sur[facility] [address] [place] [address] [phone] CONTINUED ON NEXT PAGE ----- ------- Name: Torrie Sy Age/Sex: 69/F : 1955 Unit#: [id number] Attend Dr: George Bearden MD Re12/29/24 Status: [facility] Location: [facility] Disch: ----- ------- SPEC : [id number] RECD: 12/29/24 STATUS: AMY WEBSTER NUM: [id number] HAILEY: 12/29/[address] [facility] [address]: George Bearden MD ENTERED: 12/29/24 SP TYPE: Surgical OTHR DR: Juan R Bey MD ORDERED: HE Stain/6, Gross Micro L3, Gross Micro L5/5, Cytokeratin/6, ER/4, VT, IOC, IHC/5, Add. immunos/3, IHC ER/VT/Her2N/4, CK5-6/4, E-cadherin, Ki-67, [id number] COMMENTS: Cassettes A1-A10 are placed in formalin at 1327. ----- ------- Signed (signature on file) Anna Talley 01/05/25 8998 ----- ------- END OF REPORT us Generic External Data Provider LAB BLOOD ORDERAB LES Final Result [facility] [address] [place] [address] [phone] * BI MM SURGICAL SPECIMEN (12/29/2024 12:45 PM EDT) Anatomical Region Laterality Modality Breast Bilateral Mammography 12/29/2024 12:4 5 PM EDT Narrative 12/29/2024 1:09 PM EDT [address] [address] [id number] Mammography Report Signed Patient: Torrie Sy MR#: [id number] : 1955 Acct:[id number] Age/Sex: 69 / F ADM Date: 12/29/24 Loc: [facility] Attending Dr: George Bearden MD Ordering Physician: George Bearden MD Results: Date of Service: 12/29/24 Follow Up: Procedure(s): MM surgical specimen Accession Number(s): [id number] cc: Juan R Bey MD; George Bearden MD Single right breast specimen radiograph demonstrates the tag and the marker clip within the specimen. Electronically signed by: Gabriella Campuzano DO 12/29/2024 01:06 PM EDT Dictated By: Gabriella Campuzano DO Signed By: <Electronically signed by Gabriella Campuzano DO in OV> 12/29/24 1306 DD/ 1245 TD/TT: 12/29/24 1300 Feather Drying Machine Operator: Procedure Note Donotuseinterpreter, Image - 12/29/[address] [address] [id number] Mammography Report Signed Patient: Torrie SyMR#: [id number] : 5Acct:[id number] Age/Sex: 69 / FADM Date: 12/29/24 Loc: HO.SSS Attending Dr: George Bearden MD Ordering Physician: George Beardenults: Date of Service: 12/29/24Follow Up: Procedure(s): MM surgical specimen Accession Number(s): [id number] cc: Juan R Bey MD; George Bearden MD Single right breast specimen radiograph demonstrates the tag and the marker clip within the specimen. Electronically signed by: Gabriella Campuzano DO 12/29/2024 01:06 PM EDT Dictated By: Gabriella Campuzano DO Signed By: <Electronically signed by Gabriella Campuzano DO in OV> 12/29/24 1306 DD/ 1245 TD/TT: 12/29/24 1300 Feather Drying Machine Operator: us [facility] External Provider IMG BI PROCEDURES Final Result * NM SENTINEL NODE W IMAGING (12/29/2024 8:23 AM EDT) Anatomical Region Laterality Modality Nuclear Medicine 12/29/2024 8:23 AM EDT Narrative 12/29/2024 12:34 PM EDT [address] [address] Nuclear Medicine Report Signed Patient: Torrie Sy MR#: [id number] : 1955 Acct:[id number] Age/Sex: 69 / F ADM Date: 12/29/24 Loc: HO.SSS Attending Dr: George Bearden MD Ordering Physician: George Bearden MD Date of Service: 12/29/24 Procedure(s): NM sentinel node w imaging Accession Number(s): [id number] cc: Juan R Bey MD; George Bearden [...] 12/29/24 1232 DD/ 0823 TD/TT: 12/29/24 0900 Feather Drying Machine Operator: [facility] Procedure Note Donotuseinterpreter, Image - 12/29/[address] [address] Nuclear Medicine Report Signed Patient: Torrie SyMR#: [id number] : 5Acct:[id number] Age/Sex: 69 / FADM Date: 12/29/24 Loc: HO[facility] Attending Dr: George Bearden MD Ordering Physician: George Bearden MD Date of Service: 12/29/24 Procedure(s): NM sentinel node w imaging Accession Number(s): [id number] cc: Juan R Bey MD; George Bearden [...] 12/29/24 1232 DD/ 08 TD/TT: 12/29/24 09 Feather Drying Machine Operator: JENARO [facility] External Provider IMG NM PROCEDURES Final Result * (ABNORMAL) Glucose, Whole Blood (12/29/2024 7:43 AM EDT) Glucose, Whole Blood 239(H) 60 - 115 mg/dL [facility] Comment:METER #: [id number] 12/29/2024 7:43 AM EDT 12/29/2024 7:47 AM EDT Generic External Data Provider LAB BLOOD ORDERAB LES Final Result [facility] [address] [place] [phone] * Mammogram Diagnostic Right (12/27/2024 11:13 AM EDT) Anatomical Region Laterality Modality Breast Right Mammography 12/27/2024 11:1 3 AM EDT Narrative 12/27/2024 1:02 PM EDT [facility] [address] [place], [place] [address] Mammography Report Signed Patient: Torrie Sy MR#: [id number] : 1955 Acct:[id number] Age/Sex: 69 / F ADM Date: 12/27/24 Loc: HO.MAMMO Attending Dr: George Bearden MD Ordering Physician: George Bearden MD Results: 6Know n Biopsy Proven Malignancy Date of Service: 12/27/24 Follow Up: Surgical Consult Procedure(s): MM diagnostic mammo unilat RT Accession Number(s): [id number] cc: Juan R Bey MD; George Bearden [...] carbonated lidocaine 1%: 10 cc. LOCALIZATION SYSTEM: -Mobileum LOCallizer Wire-Free Guidance System with 12g needle applicator. -Length: 7 cm. -RADIOFREQUENCY TAG: ID # [id number] RF Tag ID confirmed with LOCalizer Guidance [...] -Status post right breast RFID localization (tag ID#[id number]). Electronically signed by: Jonathan Bacon MD 12/27/2024 01:00 PM EDT Dictated By: Jonathan Bacon MD Signed By: <Electronically signed by Jonathan Bacon MD in OV> 12/27/24 1300 DD/ 1113 TD/TT: 12/27/24 1120 Feather Drying Machine Operator: Procedure Note Donotuseinterpreter, Image - 12/27/20[facility] [address] [place] [address] Mammography Report Signed Patient: Torrie Sy#: [id number] : 5Acct:[id number] Age/Sex: 69 / FADM Date: 12/27/24 Loc: HO.MAMMO Attending Dr: George Bearden MD Ordering Physician: George Beardenesults: 6Know n Biopsy Proven Malignancy Date of Service: 12/27/24Follow Up: Surgical Consult Procedure(s): MM diagnostic mammo unilat RT Accession Number(s): [id number] cc: Juan R Bey MD; George Bearden [...] carbonated lidocaine 1%: 10 cc. LOCALIZATION SYSTEM: -Mobileum LOCallizer Wire-Free Guidance System with 12g needle applicator. -Length: 7 cm. -RADIOFREQUENCY TAG: ID # [id number] RF Tag ID confirmed with LOCalizer Guidance [...] -Status post right breast RFID localization (tag ID#[id number]). Electronically signed by: Jonathan Bacon MD 12/27/2024 01:00 PM EDT Dictated By: Jonathan Bacon MD Signed By: <Electronically signed by Jonathan Bacon MD in OV> 12/27/24 1300 DD/ 1113 TD/TT: 12/27/24 1120 Feather Drying Machine Operator: [facility] External Provider IMG BI PROCEDURES Edited Result - Final * US breast needle loc RT - RFID (12/27/2024 10:32 AM EDT) Anatomical Region Laterality Modality Abdomen Ultrasound 12/27/2024 10:3 2 AM EDT Narrative 12/27/2024 1:02 PM EDT [facility] [address] [place] [address] Ultrasound Report Signed Patient: Torrie Sy MR#: [id number] : 1955 Acct:[id number] Age/Sex: 69 / F ADM Date: 12/27/24 Loc: [facility] Attending Dr: George Bearden MD Ordering Physician: George Bearden MD Date of Service: 12/27/24 Procedure(s): US Breast RF Tag Device Right Accession Number(s): [id number] cc: Juan R Bey MD; George Bearden [...] carbonated lidocaine 1%: 10 cc. LOCALIZATION SYSTEM: -Mobileum LOCallizer Wire-Free Guidance System with 12g needle applicator. -Length: 7 cm. -RADIOFREQUENCY TAG: ID # [id number] RF Tag ID confirmed with LOCalizer Guidance [...] -Status post right breast RFID localization (tag ID#[id number]). Electronically signed by: Jonathan Bacon MD 12/27/2024 01:00 PM EDT Dictated By: Jonathan Bacon MD Signed By: <Electronically signed by Jonathan Bacon MD in OV> 12/27/24 1300 DD/ 1032 TD/TT: 12/27/24 1120 Feather Drying Machine Operator: Procedure Note Deepthi, Image - 12/27/2024 [facility] [address] [place] [address] Ultrasound Report Signed Patient: Torrie Sy#: [id number] : 5Acct:[id number] Age/Sex: 69 / FADM Date: 12/27/24 Loc: MAMMO Attending Dr: George Bearden MD Ordering Physician: George Bearden MD Date of Service: 12/27/24 Procedure(s): US Breast RF Tag Device Right Accession Number(s): [id number] cc: Juan R Bey MD; George Bearden [...] carbonated lidocaine 1%: 10 cc. LOCALIZATION SYSTEM: -Mobileum LOCallizer Wire-Free Guidance System with 12g needle applicator. -Length: 7 cm. -RADIOFREQUENCY TAG: ID # [id number] RF Tag ID confirmed with LOCalizer Guidance [...] -Status post right breast RFID localization (tag ID#[id number]). Electronically signed by: Jonathan Bacon MD 12/27/2024 01:00 PM EDT Dictated By: Jonathan Bacon MD Signed By: <Electronically signed by Jonathan Bacon MD in OV> 12/27/24 1300 DD/ 1032 TD/TT: 12/27/24 1120 Feather Drying Machine Operator: us [facility] External Provider IMG US PROCEDURES Edited Result - Final * Stress test with myocardial perfusion (11/25/2024 9:41 AM EDT) 11/25/2024 9:41 AM EDT Narrative [facility] - 11/28/2024 9:19 AM EDT [address] [address] Nuclear Medicine Report Signed Patient: Torrie Sy MR#: [id number] : 1955 Acct:[id number] Age/Sex: 69 / F ADM Date: 11/25/24 Loc: [facility] Attending Dr: David Sarmiento MD Ordering Physician: David Sarmiento MD Date of Service: 11/25/24 Procedure(s): NM cardiolite stress test Accession Number(s): [id number] cc: Juan R Bey MD; David Sarmiento [...] 11/28/24 0915 DD/ 0941 TD/TT: 11/26/24 1400 Feather Drying Machine Operator: Procedure Note Donotuseinterpreter, Image - 11/28/[address] [address] Nuclear Medicine Report Signed Patient: Torrie Sy#: [id number] : 5Acct:[id number] Age/Sex: 69 / FADM Date: 11/25/24 Loc: .CARD Attending Dr: David Sarmiento MD Ordering Physician: David Sarmiento MD Date of Service: 11/25/24 Procedure(s): NM cardiolite stress test Accession Number(s): [id number] cc: Juan R Bey MD; David Sarmiento [...] 11/28/24 0915 DD/ 0941 TD/TT: 11/26/24 1400 Feather Drying Machine Operator: us [facility] External Provider CV STRE SS PROCEDURES Edited Result - Final [facility] [address] [place] [phone] * (ABNORMAL) Lipid Panel, Standard (10/18/2024 2:56 PM EDT) Triglycerides 186(H) <150 mg/dL [facility] Comment:Desirable Triglyceri de: less than 150 mg/dLBorderline High Triglyceride 150-199 mg/dLHigh Triglyceride: 200-499 mg/dLVery High Triglyceride: greater than or equal to 5OO mg/dL Cholesterol 127 <200 mg/dL [facility] Comment:Desirable Cholestero l: less than 200 mg/dLBorderline High Cholesterol: 200-239 mg/dLHigh Cholesterol: greater than 239 mg/dL LDL Cholesterol Calculated 56 <100 mg/dL [facility] Comment:Desirable LDL: less than 100 mg/dLNear Optimal/Above Optimal LDL: 110- 129 mg/dLBorderline High LDL: 130-159 mg/dLHigh LDL: 160-189 mg/dLVery High LDL: greater than or equal to 190 mg/dL HDL Cholesterol 34(L) >40 mg/dL [facility] Comment:Desirable HDL: great er than 40 mg/dL Note: This HDL assay may give artificially low results in patients with liver disease. 10/18/2024 2:56 PM EDT 10/18/2024 2:56 PM EDT us Generic External Data Provider LAB BLOOD ORDERAB LES Final Result [facility] [address] [place] [phone] * Albumin, Random Urine W/Creatinine (10/18/2024 2:55 PM EDT) Creatinine, Urine 136.42 mg/dL [facility] Microalbumin Urine 28.0 mg/L [facility] Microalbum Creatinine Ratio Ur 20.5 <30 ug/mg cr [facility] Comment:Albumin/Creatinine R atio Reference Ranges: Normal: < 30 ug/mg creatinine Microalbuminuria: 30 - 300 ug/mg creatinineClinical Albuminuria: > 300 ug/mg creatinine 10/18/2024 2:55 PM EDT 10/18/2024 3:23 PM EDT Generic External Data Provider LAB URINE ORDERAB LES Final Result Performing Organization Address [facility] Co de Phone Number [facility] [address] [place] [phone] * Hepatitis Panel, General (02/05/2024 9:25 AM EDT) Hepatitis A IgM Nonreactive Nonreactive [facility] Comment:IgM antibodies to DE [place] CRU[place] V not detected; does not exclude earlyacute or recovered HAV infection. ~Hepatitis B Surface Antibody NONREACTIVE Nonreactive [facility] Comment:Nonreactive: < 8.00 mIU/mL Hepatitis B Core Antibody Nonreactive Nonreactive [facility] Hepatitis C Antibody Nonreactive Nonreactive [facility] Comment:Antibodies to HCV no t detected; does not exclude early acuteHCV infection. Hepatitis B Surface Ag Negative Negative [facility] 02/05/2024 9:25 AM EDT 02/05/2024 9:25 AM EDT Generic External Data Provider LAB BLOOD ORDERAB LES Final Result Performing Organization Address [facility] Co de Phone Number [facility] [address] [place] [address] [phone] from Last 3 Months or Most Recently Relevant to Health Maintenance Insurance [facility] ONE CARE < [address] [place] [id number] Care Teams Front Office Director Relationship Specialty Start Date End Date Juan R Blount MD [address] [place] [phone] PCP - General Internal Medicine 12/09/13 Shasta Sutton Endocrinology 08/23/24
--- OUTSIDE RECORDS SUMMARY | 2025-02-14 15:24 | XMS_ITS | Encounter Summary ---
Author Organization [employer] Address [address] [facility] 7t [place] [address] Care Team Providers Care Skip Hoist Operator Name Role Phone Juan R Blount MD Primary Care Provide r Reason for Visit * Reason Onset Date Comments Prior Authorization 02/03/2025 Encounter Details Date Type Department Care Team ([facility] st Contact Info) Description 02/03/2025 Telephone [facility] MEDICINE [address] [place], [place] [phone] Juan R Blount MD [address] [place], [place] [phone] Prior Authorization Social History Tobacco Use Types Packs/Day Years [...] encounter Miscellaneous Notes * Telephone Encounter - Amanda Sarabia - 02/11/2025 2:35 PM EDT PA denial for Zelpidem received and sent to scan. If wish to appeal PA, a Peer to Peer can be completed by calling [phone]. Reason for denial: Step therapy with Doxepin 3mg or 6mg required, qty limit 30 tab for 30 days. If pt has already had a trial of doxepin or has contraindications, please addend note and advise soPA can be resent. Thank you * Telephone Encounter - Amanda Sarabia - 02/03/2025 3:27 PM EDT PA initiated on Covermymeds for Zolpidem. Approval/denial pending. [facility]: [id number] documented in this encounter Plan of Treatment Not on file documented as of this encounter Visit Diagnoses Not on filedocumented in this encounter Additional Health Concerns Assessment Noted Time PHQ-9 Depression Total Score: 5 01/26/20 25 1:00 PM EDT documented as of this encounter Care Teams Skip Hoist Operator Relationship Specialty Start Date End Date Juan R Blount MD [address] [place] [address] PCP - General Internal Medicine 12/09/13 [facility] [place] [facility] 08/23/24 documented as of this encounter
--- OUTSIDE RECORDS SUMMARY | 2025-02-14 15:24 | XMS_ITS | Encounter Summary ---
Author Organization [employer] Address [address] [facility] 7t [place] [address] Care Team Providers Care Paster Operator Name Role Phone Juan R Blount MD Primary Care Provide r Encounter Details Date Type Department Care Team ([facility] st Contact Info) Description 07/03/2022 Orders Only [facility] CHC MED & PEDS [address] [place] [address] Luz Marina Zaragoza LPN Social History Tobacco [...] on filedocumented in this encounter Care Teams Paster Operator Relationship Specialty Start Date End Date Juan R Blount MD [address] [place] [id number] PCP - General Internal Medicine 12/09/13 [facility] [place] [facility] 08/23/24 documented as of this encounter
--- OUTSIDE RECORDS SUMMARY | 2025-02-14 15:24 | XMS_ITS | Encounter Summary ---
Author Organization [employer] Address [address] [facility] 7t [place] [address] Care Team Providers Care Gate Supervisor Name Role Phone Juan R Blount MD Primary Care Provide r Encounter Details Date Type Department Care Team ([facility] st Contact Info) Description 05/29/2022 Orders Only [facility] MEDICINE [address] [place], [place] [phone] Cyndi Sy LPN Social History Tobacco Use [...] on filedocumented in this encounter Care Teams Gate Supervisor Relationship Specialty Start Date End Date Juan R Blount MD [address] [place] [address] PCP - General Internal Medicine 12/09/13 [facility] [place] [facility] 08/23/24 documented as of this encounter
--- OUTSIDE RECORDS SUMMARY | 2025-02-14 15:24 | XMS_ITS | Encounter Summary ---
Author Organization [employer] Address [address] [facility] 7t [place] [address] Care Team Providers Care Electrical Wirer Name Role Phone Juan R Blount MD Primary Care Provide r Encounter Details Date Type Department Care Team ([facility] Contact Info) Description 02/10/2025 Orders Only GENERIC [...] Whole Blood 208(H) 60 - 115 mg/dL [facility] Comment:METER #: [id number] Testing performed in the Endocrinology Department [address] , [address], [facility]. 02/10/2025 12:4 3 PM EDT 02/10/2025 12:47 PM EDT us Generic External Data Provider LAB BLOOD ORDERAB LES Final Result [facility] [address] [place] [address] [phone] documented in this encounter Visit Diagnoses Not on filedocumented in this encounter Additional Health Concerns Assessment Noted Time PHQ-9 Depression Total Score: 5 01/26/20 25 1:00 PM EDT documented as of this encounter Care Teams Electrical Wirer Relationship Specialty Start Date End Date Juan R Blount MD [address] [place] [address] PCP - General Internal Medicine 12/09/13 [facility] [place] [facility] 08/23/24 documented as of this encounter
--- OUTSIDE RECORDS SUMMARY | 2025-02-14 15:24 | XMS_ITS | Encounter Summary ---
Author Organization [email or web address] Address [address] [facility] 7t [place] [address] Care Team Providers Care Supervisor Packing Name Role Phone Juan R Blount MD Primary Care Provide r Encounter Details Date Type Department Care Team ([facility] st Contact Info) Description 06/11/2022 Orders Only [facility] CHC MED & PEDS [address] [place] [address] Luz Marina Zaragoza LPN Social History Tobacco [...] filedocumented in this encounter Care Teams Supervisor Packing Relationship Specialty Start Date End Date Juna R Blount MD [address] [place] [id number] PCP - General Internal Medicine 12/09/13 [facility] [place] [facility] 08/23/24 documented as of this encounter
--- OUTSIDE RECORDS SUMMARY | 2025-02-14 15:24 | XMS_ITS | Encounter Summary ---
Author Organization [employer] Address [address] [facility] 7t [place] [address] Care Team Providers Care Social Work Instructor Name Role Phone Juan R Blount MD Primary Care Provide r Reason for Visit * Reason Onset Date Comments Med Refill 12/03/2022 Encounter Details Date Type Department Care Team (Late st Contact Info) Description 12/03/2022 Refill [facility] MEDICINE [address] [place], [place] [phone] Juan R Blount MD [address] [place] [address] Asthma, unspecified asthma severity, unspecified whether complicated, [...] documented as of this encounter Care Teams Social Work Instructor Relationship Specialty Start Date End Date Juan R Blount MD [address] [place] [address] PCP - General Internal Medicine 12/09/13 [facility] [place] [facility] 08/23/24 documented as of this encounter
--- OUTSIDE RECORDS SUMMARY | 2025-02-14 15:24 | XMS_ITS | Encounter Summary ---
Author Organization [employer] Address [address] [facility] 7t [place] [address] Care Team Providers Care Litigation Support Analyst Name Role Phone Juan R Blount MD Primary Care Provide r Encounter Details Date Type Department Care Team (Late st Contact Info) Description 05/31/2022 Abstract [facility] MEDICINE [address] [place], [place] [phone] Juan R Blount MD [address] [place], [place] [phone] Social History Tobacco Use Types Packs/Day Years [...] on filedocumented in this encounter Care Teams Litigation Support Analyst Relationship Specialty Start Date End Date Juan R Blount MD [address] [place], [place] [phone] PCP - General Internal Medicine 12/09/13 [facility] [place] [facility] 08/23/24 documented as of this encounter
== END 2025-02-14 11:57 | disposition home or self-care (01) ==
LOC: HO.MAMMO 11:56
PROVIDERS: PCP Internal Medicine; Visit Provider Internal Medicine Medical Oncology
DX: Z13.820 Encounter for screening for osteoporosis (principal); M81.0 Age-related osteoporosis without current pathological fracture
CPT/HCPCS: 77080

== ENCOUNTER → 2025-02-14 12:00 | Outpatient (BNV) | payer OTHER, SELFPAY | PROVIDERS: PCP Internal Medicine; Visit Provider Radiology Diagnostic Radiology | DX: E28.39 Other primary ovarian failure (principal) | CPT/HCPCS: 77080 ==

== ENCOUNTER 2025-02-28 12:43 | Outpatient (AMB) | payer OTHER, SELFPAY ==
--- NOTE | 2025-02-28 13:05 | MHC.OFFVIS ---
Vital Signs 02/28/25 13:17 Height 5 ft 6 in Weight 165 lb 5.547 oz BMI 26.7 Intake Visit Reasons: 1mth Wider exc rt breast cancer Intake Note: Patient is seen in office for one month follow up visit, post wider excision right breast lumpectomy. Pt c/o: was seen by oncology and recommendations are radiation and chemotherapy, pt is questioning why this is needed if cancer has been removed, was also recommended Tamoxifen but pt is unsure due to side effects Construction Plumber Required: No Accompanied by: Family/Other Allergies insulin detemir Allergy (Intermediate, Verified 02/28/25 13:16) Rash penicillin V Allergy (Intermediate, Verified 02/28/25 13:16) Rash acetaminophen (From Tylenol) Allergy (Mild, Verified 02/28/25 13:16) ITCH,RASH iodine (Iodine) Allergy (Mild, Verified 02/28/25 13:16) HIVES trimerosal Allergy (Intermediate, Uncoded 02/28/25 13:16) rash Latex Gloves Allergy (Mild, Uncoded 02/28/25 13:16) Rash METAL Allergy (Mild, Uncoded 02/28/25 13:16) HIVES Medication List - Last Reconciled 02/28/25 by George Bearden MD albuterol sulfate 90 mcg/actuation 2 puffs inhalation Q6H PRN amlodipine 5 mg PO BEDTIME aspirin 81 mg PO DAILY atenolol 12.5 mg PO BID atorvastatin 40 mg PO BEDTIME blood sugar diagnostic (FreeStyle Lite Strips) four times a day blood-glucose meter (FreeStyle Lite Meter kit) As directed blood-glucose sensor (FreeStyle Crystal 3 Sensor device) USE DIRECTED TO TEST BLOOD SUGAR. CHANGE EVERY 14 DAYS . blood-glucose,hypoid gear tester,cont (FreeStyle Crystal 3 [place]) Use daily to monitor blood glucose levels continuously. [Cane As directed] cholecalciferol (vitamin D3) (Vitamin D3) 125 mcg PO DAILY cyanocobalamin (vitamin B-12) 1,000 mcg PO DAILY docusate sodium 100 mg PO BEDTIME dulaglutide (Trulicity) 4.5 mg subcut MO@0900 fluticasone propion-salmeterol 500-50 mcg/dose (Advair Diskus) 1 inh inhalation BID gabapentin 800 mg PO TID glucose (Dex4 Glucose Quick Dissolve) 16 grams (4 x 4 gram) PO Q15M PRN insulin aspart U-100 (Novolog FlexPen U-100 Insulin aspart) subcutaneously 3 times a day before meals; administer 17 units before breakfast and dinner and 20 units before lunch. insulin degludec (Tresiba FlexTouch U-200 insulin) 52 units (0.26 mL) subcut BEDTIME 30 days insulin syringe-needle U-100 As directed lancets (FreeStyle Lancets) four times a day lidocaine 5% 1 appl topical BID PRN losartan 100 mg PO DAILY montelukast (Singulair) 10 mg PO BEDTIME nicotine 21 mg transdermal DAILY pen needle, diabetic (BD Ultra-Fine Janene Pen Needle) As directed four times a day pioglitazone 15 mg PO QAM tamoxifen 20 mg PO DAILY tramadol 50 mg PO TID PRN umeclidinium 62.5 mcg/actuation (Incruse Ellipta) 1 inh inhalation DAILY zolpidem 10 mg PO BEDTIME PRN HPI Comments Details: 70-year-old female patient with a previous history of a CVA with right-sided weakness, COPD, type 2 diabetes, chronic kidney disease stage 3, and essential hypertension presenting following a recent mammogram and ultrasound performed as a six-month follow-up to a density in the right breast at the 10 o'clock position, 3 cm from the nipple performed on 09/01/2024. This lesion was again demonstrated in the 10 o'clock position approximately 3 cm from the nipple was felt to be either a solid versus complicated cyst and six-month follow-up ultrasound recommended. Also noted however was a focal asymmetry associated with distortion located in the 10 o'clock position approximately 6 cm from the nipple, posterior depth, felt to be suspicious for malignancy on a stereotactic guided core biopsy was recommended. The patient denies any prior history of breast problems or breast surgery. Her family history is negative for breast cancer. Her menarche was the age of 11. She is G5, and had her 1st child to the age of 17. Stereotactic guided core biopsy was performed at [facility] on 09/23/2024. Pathology revealed invasive ductal carcinoma with tubular lobular features, ER positive, WA positive, HER2 equivocal, FISH negative. She underwent right breast lumpectomy with localizer and right axillary sentinel node biopsy on 12/29/2024 and pathology revealed invasive ductal carcinoma with lobular features, grade 2, 18 mm with ductal carcinoma in-situ, nuclear grade 1. Posterior margin was positive for DCIS. Three nodes were negative for metastatic carcinoma. She subsequently returned to the OR for wider excision right breast performed on 01/13/2025. She reports some soreness associated with the incision but generally feels well. Pathology revealed no residual ductal carcinoma in-situ or invasive carcinoma. Previous excision site granulation tissue was noted as well as skeletal muscle with no evidence of tumor. She had met with Dr Dennis who recommended Oncotype testing to see if there was any benefit of chemotherapy. She also recommended evaluation by Radiation Oncology. The patient was upset because she did not wish to have any chemo or radiation therapy. She is requesting a 2nd opinion. [facility] Medical History History of lumbar puncture (04/28/24) Smoker Environmental allergies Seasonal allergies Cough Walker as ambulation aid Invasive ductal carcinoma of right breast in female CVA (cerebral vascular accident) (2008) Osteopenia Screening examination for infectious disease Insulin dependent type 2 diabetes mellitus Elevated C-reactive protein Elevated sed rate Myalgia, upper arm Knee instability Back pain at L4-L5 level Knee pain, right Knee pain, left UTI (urinary tract infection) Proteinuria Hyperlipidemia Lumbar spondylosis Fibromyalgia Syncope COPD (chronic obstructive pulmonary disease) Depression Asthma Type 2 diabetes mellitus with hyperglycemia, with long-term current use of insulin Type 2 diabetes mellitus with chronic kidney disease Chronic kidney disease, stage 3 unspecified Type 2 diabetes mellitus with diabetic polyneuropathy Essential hypertension Surgical History History of lumpectomy of right breast (12/29/24) H/O transurethral resection of bladder tumor (TURBT) (03/05/22) Hx of ultrasound guided needle biopsy Hx of mammogram Hx of colonoscopy Hx of oral surgery Hx of tubal ligation Family History Father No problems noted. Mother Heart disease CVD (cardiovascular disease) Diabetes Social History Household Members: Family Housing: Apartment Are you a primary human services care specialist to a significant other at home: No Do you presently have visiting nurse or other home services: No Alcohol intake: never Comment: counts correct Patient Tobacco Use Status: Current everyday Tobacco user Tobacco use type: Cigarette Cigarette Packs Per Day: 0.5 Female Reproductive History Menstrual Age of Menarche: 11 Review of Systems Const All systems reviewed & are unremarkable except as noted in HPI and below Physical Exam Vital Signs: BMI result Body Mass Index 26.7 Const General: no acute distress Nutritional Appearance: well nourished Orientation/consciousness: patient oriented x3 Limitations: wheelchair HEENT Head: Yes normocephalic and Yes atraumatic Chest Other: Exam deferred Resp Effort & Inspection: normal respiratory effort, no audible wheezes, no cough and no respiratory distress Skin Other: Warm, dry, no rash Neuro Other: Mobility Assessment: 1. 3 meter assessment time (seconds) unable to perform 2. Gait observations: Patient in wheelchair, nonambulatory General: patient oriented x3 Assessment & Plan Assessment & Plan (1) Invasive ductal carcinoma of female breast, stage 1: Code(s): C50.919 - Malignant neoplasm of unspecified site of unspecified female breast Category: Medical Qualifiers: Laterality: right Qualified Code(s): C50.911 - Malignant neoplasm of unspecified site of right female breast Plan Overall patient is doing well following right breast lumpectomy and sentinel node biopsy. She is requesting a 2nd opinion at [facility] and consultation request prepared today. I explained the reason for considering chemotherapy and radiation therapy to help prevent recurrence of disease and metastatic spread. She again expressed her wishes not to have any chemotherapy or radiation therapy but was willing to have a 2nd opinion. She will follow up in 3 months for routine breast examination. Orders: Referrals Hematology & Oncology Referral C50.919 - Malignant neoplasm of unspecified site of unspecified female breast Coding Level of Care Code Global (50137) Diagnoses Stage 1 infiltrating ductal carcinoma of right female breast C50.911 Laterality: right
[2025-02-28 13:17] VITALS: BMI 26.7
--- OUTSIDE RECORDS SUMMARY | 2025-02-28 14:50 | XMS_ITS | Clinical Summary ---
Author Organization [facility] Address [address] [place] [address] [place] [phone] Phone Care Team Providers Care Data Security Analyst Name Role Phone Juan R Eaton [...] this topic Insurance [place] Care Teams Data Security Analyst Relationship Specialty Start Date End Date Juan R Eaton MD PCP - General Internal Medicine 08/23/20
--- OUTSIDE RECORDS SUMMARY | 2025-02-28 14:50 | XMS_ITS | Encounter Summary ---
Author Organization [employer] Address [address] [place] [address] Care Team Providers Care Deboner Name Role Phone Juan R Blount MD Primary Care Provide r Reason for Visit * Reason Comments Med Refill Encounter Details Date Type Department Care Team ([facility] st Contact Info) Description 10/23/2023 Refill [facility] CHC MED & PEDS [address] [place], [place] [phone] Juan R Blount MD [address] [place] [address] Type 2 diabetes mellitus with hyperglycemia, with long-term current use of insulin ([facility]) Social History Tobacco Use Types [...] documented as of this encounter Care Teams Deboner Relationship Specialty Start Date End Date Juan R Blount MD [address] [place] [address] PCP - General Internal Medicine 12/09/13 [facility] [place] [facility] 08/23/24 documented as of this encounter
--- OUTSIDE RECORDS SUMMARY | 2025-02-28 14:50 | XMS_ITS | Encounter Summary ---
Author Organization [employer] Address [address] 7t [place] [address] Care Team Providers Care Rim Turning Finisher Name Role Phone Juan R Blount MD Primary Care Provide r Reason for Visit * Reason Comments Med Refill Encounter Details Date Type Department Care Team ([facility] st Contact Info) Description 08/26/2024 Refill [facility] CHC MED & PEDS [address] [place], [place] [phone] Juan R Blount MD [address] [place] [address] Primary insomnia Social History Tobacco Use Types [...] documented as of this encounter Care Teams Rim Turning Finisher Relationship Specialty Start Date End Date Juan R Blount MD [address] [place] [address] PCP - General Internal Medicine 12/09/13 [facility] [place] [facility] 08/23/24 documented as of this encounter
--- OUTSIDE RECORDS SUMMARY | 2025-02-28 14:50 | XMS_ITS | Encounter Summary ---
Author Organization [employer] Address [address] [facility] 7t [place] [address] Care Team Providers Care Rx Specialist Name Role Phone Juan R Blount MD Primary Care Provide r Reason for Visit * Reason Comments Med Refill Encounter Details Date Type Department Care Team ([facility] st Contact Info) Description 07/29/2023 Refill [facility] CHC MED & PEDS [address] [place] [address] Aggie Guan MD [address] [place] [address] Primary insomnia Social History Tobacco Use Types [...] documented as of this encounter Care Teams Rx Specialist Relationship Specialty Start Date End Date Juan R Blount MD [address] [place] [id number] PCP - General Internal Medicine 12/09/13 [facility] [place] [facility] 08/23/24 documented as of this encounter
--- OUTSIDE RECORDS SUMMARY | 2025-02-28 14:50 | XMS_ITS | Encounter Summary ---
Author Organization [employer] Address [address] [facility] 7t [place] [address] Care Team Providers Care Mobile Home Installer Name Role Phone Juan R Blount MD Primary Care Provide r Reason for Visit * Reason Comments Med Refill Encounter Details Date Type Department Care Team ([facility] st Contact Info) Description 06/27/2023 Refill [facility] CHC MED & PEDS [address] [place] [address] Aggie Guan MD [address] [place] [address] Primary insomnia Social History Tobacco Use Types [...] documented as of this encounter Care Teams Mobile Home Installer Relationship Specialty Start Date End Date Juan R Blount MD [address] [place] [phone] PCP - General Internal Medicine 12/09/13 [facility] [place] [facility] 08/23/24 documented as of this encounter
--- OUTSIDE RECORDS SUMMARY | 2025-02-28 14:50 | XMS_ITS | Encounter Summary ---
Author Organization [employer] Address [address] [facility] [facility] [address] [place] [address] Care Team Providers Care Green Marketing Specialist Name Role Phone Juan R Blount MD Primary Care Provide r Reason for Visit * Reason Comments Med Refill Encounter Details Date Type Department Care Team ([facility] st Contact Info) Description 04/16/2024 Refill [facility] CHC MED & PEDS [address] [place] [address] Aggie Melendez MD [address] [place] [address] Primary insomnia Social History Tobacco Use Types [...] documented as of this encounter Care Teams Green Marketing Specialist Relationship Specialty Start Date End Date Juan R Blount MD [address] [place] [address] PCP - General Internal Medicine 12/09/13 [facility] [place] [facility] 08/23/24 documented as of this encounter
--- OUTSIDE RECORDS SUMMARY | 2025-02-28 14:50 | XMS_ITS | Clinical Summary ---
Author Organization [facility] Address [address] [place] [address] Phone Care Team Providers Care Journalism Internship Name Role Phone Juan R Bey MD Primary Care Provi nalini Medications zolpidem (AMBIEN) 10 mg tablet Take 1 tablet (10 mg total) by mouth once daily as needed. 08/04/19 21 Active Incruse Ellipta 62.5 mcg/actuation inhalation INHALE 1 PUFF BY MOUTH EVERY DAY AT THE SAME TIME RINSE MOUTH AFTER USING Active traMADoL (ULTRAM) 50 mg tablet Take 1 tablet (50 mg total) by mouth 3 (three) times a day. Active pioglitazone (ACTOS) 15 mg tablet Take 1 tablet (15 mg total) by mouth 1 (one) time each day in the morning. 07/27/19 25 Active BD Ultra-Fine Janene Pen Needle 32 gauge x 5/32 needle use as directed 09/17/19 25 Active montelukast (SINGULAIR) 10 mg tablet Take 1 tablet (10 mg total) by mouth. 09/18/19 25 Active losartan (COZAAR) 100 mg tablet Take 1 tablet (100 mg total) by mouth 1 (one) time each day in the morning. 04/26/19 25 Active TRUEplus Lancets 33 gauge misc USE DIRECTED TO TEST BLOOD SUGAR FOUR TIMES DAILY 07/22/19 25 Active insulin glargine (Lantus U-100 Insulin) 100 unit/mL injection INJECT 38 UNITS SUBCUTANEOUSLY EVERY DAY 08/09/19 21 Active Tresiba FlexTouch U-200 200 unit/mL (3 mL) CONCENTRATED injection pen Inject 60 Units under the skin. at bedtime Active gabapentin (NEURONTIN) 800 mg tablet TAKE 1 CAPSULE BY MOUTH THREE TIMES DAILY IN THE MORNING, AT NOON, AND IN THE EVENING Active hydrocortisone 2.5 % cream APPLY TOPICALLY TO AFFECTED AREA(S) TWICE DAILY 12/05/19 24 Active NovoLOG Flexpen U-100 Insulin 100 unit/mL (3 mL) injection pen INJECT 17 UNITS SUBCUTANEOUSLY THREE TIMES DAILY DIRECTED Active Trulicity 4.5 mg/0.5 mL pen injector injection INJECT ONE PEN (= 4.5MG) SUBCUTANEOUSLY ONCE A WEEK DIRECTED 09/17/19 25 Active Glutose-15 40 % gel TAKE 1 TUBE BY MOUTH EVERY 15 MINUTES NEEDED FOR LOW BLOOD SUGAR 09/15/19 25 Active clotrimazole (LOTRIMIN) 1 % cream APPLY TOPICALLY TWICE DAILY FOR 28 DAYS 03/23/20 24 Active cyclobenzaprine (FLEXERIL) 10 mg tablet Take 1 tablet (10 mg total) by mouth every 8 (eight) hours. 05/30/19 21 Active atorvastatin (LIPITOR) 40 mg tablet Take 1 tablet (40 mg total) by mouth. at bedtime. Active aspirin 81 mg EC tablet Take 1 tablet (81 mg total) by mouth 1 (one) time each day in the morning. Active amLODIPine (NORVASC) 5 mg tablet Take 1 tablet (5 mg total) by mouth. 08/03/19 21 Active alendronate (FOSAMAX) 70 mg tablet take 1 tablet once a week with 6 to 8 oz of water 30 min before first food of day. do not lie down for 30 minutes Active albuterol 2.5 mg /3 mL (0.083 %) nebulizer solution INHALE 1 AMPULE USING A NEBULIZER THREE TIMES DAILY 07/26/19 21 Active albuterol HFA (PROAIR HFA ; PROVENTIL HFA ; VENTOLIN HFA) 90 mcg/actuation inhaler Inhale 2 puffs by mouth. 07/26/19 21 Active Active Problems Problem Noted Date Diagnosed Date Abnormal mammogram 01/15/2024 Acute right-sided low back pain without sciatica 01/15/2024 Right thyroid nodule 01/15/2024 Weakness of right lower extremity 01/15/2024 Cystitis 11/19/2022 Falls frequently 11/19/2022 Pulmonary nodules 11/19/2022 Smoker 11/19/2022 Carpal tunnel syndrome 11/06/2022 Urinary incontinence 09/12/2017 Moderate persistent asthma 01/09/2016 Disseminated idiopathic skeletal hyperostosis Neck pain on right side 05/10/2014 Chronic dermatitis 06/11/2012 Depressive disorder 06/11/2012 Diabetes mellitus, type II ([facility] V24, [facility] V28) 06/11/2012 Hypertension 06/11/2012 Encounters Date Type Department Care Team Description 02/16/2025 Telephone [facility] [address] [place] [address] Mirella Winter MA from Last 3 Months Social History Tobacco Use Types Packs/Day Years Used Date Smoking Tobacco: Every Day Cigarettes Smokeless Tobacco: Never Tobacco Cessation:Ready to Q uit: Not Asked; Counseling Given: Not Answered Alcohol Use Standard Drinks/Week Comments Not Currently 0 (1 standard drink = 0.6 oz pur e alcohol) Former heavy drinker Comments Unknown Sex and Gender Information Value Date Recorded Sex Assigned at Not on file Legal Sex Female 10:27 AM EDT Gender Identity Not on file Sexual Orientation Not on file Obstetrics History Para Term AB IAB SAB Ectopic Multiple Livin g Live Births 5 5 Date Outcome GA Total Labor Labor/2nd/3rd Weight Sex Type Anes PTL Eneida A1 A5 Name Clin Para Para Para Para Para Plan of Treatment Health Maintenance Due Date Last Done Comments Colorectal Cancer Screening: Colonoscopy 1955 Diabetes: Annual GFR (Glomerular Filtration Rate) 1955 Diabetes: Annual Foot Exam 1965 Diabetes: Annual Retina Eye Exam 1965 Zoster Vaccines (1 of 2) 1974 Pneumococcal Vaccine: 50+ Years (2 of 2 - PCV) 02/17/2004 02/16/2003 RSV Immunization Adult Patients (1 - Risk 50-74 years 1-dose series) 2005 DTaP,Tdap,and Td Vaccines (2 - Td [...] this topic Medical Devices Implanted Type Area Signal And Communications Maintainer Device Identifier Shelf Expiration Date Model / Serial / Lot Marker Breast Biopsy 10g Flexible Ti Open Coil Hydromark - [id number] Implanted:Qty: 1 on 09/23/2024 by Christos Warner MD at [facility] Imaging Implants Right: Breast DEVICOR [employer] [id number] 03/10/2027 4010-05- 10-T3 / / [id number] Procedures Procedure Name Priority Date/Time Associated [...] ? Greatest length of carcinoma: 14 mm [place] score: Grade 1 Glandular/tubular morphology: 2 Nuclear [...] Signed Date: 09/27/2024 14:26 ET Workstation ID: [id number] Transcribed By: Self Edit Transcribed Date: 09/27/2024 [...] Pathology pending for the right breast. Location: [address], [address] -------- FINAL REPORT -------- Dictated By: Christos Warner Dictated Date: 09/23/2024 13:54 ET Assigned Physician: Christos Warner Reviewed and Electronically Signed By: Christos Warner Signed Date: 09/23/2024 15:10 ET Workstation ID: [id number] Transcribed By: Self Edit Transcribed Date: 09/23/2024 [...] Most Recently Relevant to Health Maintenance Insurance MEDICARE Member Subscriber Plan / Payer (Ef fective 2016-Present) Name:BRUSH, TORRIE Relation to Subscriber:Self Name:Brush, Torrie Payer ID:[id number] Group ID:[id number] Type:Not on file Address: [place] [address] [address] [phone] Care Teams Journalism Internship Relationship Specialty Start Date End Date Juan R Bey MD [address] [place] [id number] PCP - General Internal Medicine 09/03/24
--- OUTSIDE RECORDS SUMMARY | 2025-02-28 14:50 | XMS_ITS | Encounter Summary ---
Author Organization [employer] Address [address] [facility] [place] [address] Care Team Providers Care Pathology Laboratory Technologist Name Role Phone Juan R Blount MD Primary Care Provide r Reason for Visit * Reason Comments Med Refill Encounter Details Date Type Department Care Team ([facility] st Contact Info) Description 02/04/2024 Refill [facility] MEDICINE [address] [place], [place] [phone] Lewis Carter MD [address] [place], [place] [phone] Social History Tobacco Use Types Packs/Day Years [...] documented as of this encounter Care Teams Pathology Laboratory Technologist Relationship Specialty Start Date End Date Juan R Blount MD [address] [place] [address] PCP - General Internal Medicine 12/09/13 [facility] 08/23/24 documented as of this encounter
--- OUTSIDE RECORDS SUMMARY | 2025-02-28 14:50 | XMS_ITS | Encounter Summary ---
Author Organization [employer] Address [address] [facility] [address]t [place] [address] Care Team Providers Care Veneer Measurer Name Role Phone Juan R Blount MD Primary Care Provide r Reason for Visit * Reason Comments Med Refill Encounter Details Date Type Department Care Team ([facility] st Contact Info) Description 01/13/2025 Refill [facility] MEDICINE [address] [place], [place] [phone] Juan R Blount MD [address] [place], [place] [phone] Type 2 diabetes mellitus with hyperglycemia, with long-term current use of insulin ([facility]) Social History Tobacco Use Types Packs/Day Years [...] documented as of this encounter Care Teams Veneer Measurer Relationship Specialty Start Date End Date Juan R Blount MD [address] [place] [address] PCP - General Internal Medicine 12/09/13 [facility] 08/23/24 documented as of this encounter
--- OUTSIDE RECORDS SUMMARY | 2025-02-28 14:50 | XMS_ITS | Encounter Summary ---
Author Organization [employer] Address [address] [facility] 7[address] [place] [address] Care Team Providers Care Central Stores Attendant Name Role Phone Juan R Blount MD Primary Care Provide r Reason for Visit * Reason Comments Med Refill Encounter Details Date Type Department Care Team ([facility] st Contact Info) Description 12/17/2024 Refill [facility] MEDICINE [address] [place], [place] [phone] Juan R Blount MD [address] [place], [place] [phone] Asthma, unspecified asthma severity, unspecified whether complicated, [...] [place] Subject: Script Requests Grebritney, I am (Facility Attendant Ashley Ponce), Facility Attendant for [facility] Care Management, requesting the following DME???s on behalf of patient. DME Item: Handheld Shower head, and non-slip bathmat Supportive DX: R29.6, E66.09 If you should have any inquiries regarding this request, feel free to contact the Facility Attendant below. Facility Attendant: Ashley Ponce E-mail: [email or web address] Surgery Nurse: Surgery Nurse Gayla Singh Phone: E-mail: [email or web address] Thanks in advance for your assistance with this request. Sincerely, [facility] Care Management documented in this encounter Plan of Treatment Not on file documented as of this encounter Visit Diagnoses Diagnosis Asthma, unspecified asthma severity, unspecified whether complicated, unspecified whether persistent documented in this encounter Additional Health Concerns Assessment Noted Time PHQ-9 Depression Total Score: 3 01/15/20 24 1:38 PM EDT documented as of this encounter Care Teams Central Stores Attendant Relationship Specialty Start Date End Date Juan R Blount MD [address] [place] [phone] PCP - General Internal Medicine 12/09/13 [facility] 08/23/24 documented as of this encounter
--- OUTSIDE RECORDS SUMMARY | 2025-02-28 14:50 | XMS_ITS | Encounter Summary ---
Author Organization [employer] Address [address] [facility] 7t [place] [address] Care Team Providers Care Thermal Cutting Tracer Machine Operator Name Role Phone Juan R Blount MD Primary Care Provide r Encounter Details Date Type Department Care Team (Late st Contact Info) Description 10/29/2022 Abstract [facility] MEDICINE [address] [place], [place] [phone] Juan R Blount MD [address] [place], [place] [phone] Social History Tobacco Use Types Packs/Day Years [...] on filedocumented in this encounter Care Teams Thermal Cutting Tracer Machine Operator Relationship Specialty Start Date End Date Juan R Blount MD [address] [place], [place] [phone] PCP - General Internal Medicine 12/09/13 [facility] 08/23/24 documented as of this encounter
--- OUTSIDE RECORDS SUMMARY | 2025-02-28 14:50 | XMS_ITS | Encounter Summary ---
Author Organization [employer] Address [address] [facility] [address]t [place] [address] Care Team Providers Care Land Degradation Analyst Name Role Phone Juan R Blount MD Primary Care Provide r Reason for Visit * Reason Comments Med Refill Encounter Details Date Type Department Care Team ([facility] st Contact Info) Description 06/27/2023 Refill [facility] MED & PEDS [address] [place] [address] Aggie Guan MD [address] [place] [address] Primary insomnia Social History Tobacco Use Types [...] documented as of this encounter Care Teams Land Degradation Analyst Relationship Specialty Start Date End Date Juan R Blount MD [address] [place] [phone] PCP - General Internal Medicine 12/09/13 [facility] 08/23/24 documented as of this encounter
--- OUTSIDE RECORDS SUMMARY | 2025-02-28 14:50 | XMS_ITS | Encounter Summary ---
Author Organization [employer] Address [address] [facility] [address] [place] [address] Care Team Providers Care Siebel Administrator Name Role Phone Juan R Blount MD Primary Care Provide r Encounter Details Date Type Department Care Team (Late st Contact Info) Description 05/16/2023 Abstract [facility] MEDICINE [address] [place] [address] Juan R Blount MD [address] [place] [address] Social History Tobacco Use Types [...] documented as of this encounter Care Teams Siebel Administrator Relationship Specialty Start Date End Date Juan R Blount MD [address] [place] [address] PCP - General Internal Medicine 12/09/13 [facility] 08/23/24 documented as of this encounter
--- OUTSIDE RECORDS SUMMARY | 2025-02-28 14:50 | XMS_ITS | Encounter Summary ---
Author Organization [employer] Address [address] [facility] [address] [place] [address] Care Team Providers Care Property Management Specialist Name Role Phone Juan R Blount MD Primary Care Provide r Reason for Visit * Reason Comments Med Refill Encounter Details Date Type Department Care Team ([facility] st Contact Info) Description 06/17/2024 Refill [facility] MEDICINE [address] [place], [place] [phone] Name, MD Fco [address] [place] [address] Mixed hyperlipidemia Social History Tobacco Use Types [...] documented as of this encounter Care Teams Property Management Specialist Relationship Specialty Start Date End Date Juan R Blount MD [address] [place] [address] PCP - General Internal Medicine 12/09/13 [facility] 08/23/24 documented as of this encounter
--- OUTSIDE RECORDS SUMMARY | 2025-02-28 14:50 | XMS_ITS | Encounter Summary ---
Author Organization [employer] Address [address] [facility] [address] [place] [address] Care Team Providers Care Geometry Professor Name Role Phone Juan R Blount MD Primary Care Provide r Encounter Details Date Type Department Care Team ([facility] st Contact Info) Description 05/16/2022 Orders Only [facility] CHC MED & PEDS [address] [place] [address] Luz Marina Zaragoza LPN Social History Tobacco [...] PM EST Narrative 05/28/2022 4:46 PM EST [facility]'s [address] [place] [address] Mammography Report Signed Patient: Torrie Sy MR#: [id number] : 1955 Acct:[id number] Age/Sex: 67 / F ADM Date: 05/28/22 Loc: HO.MAMMO Attending Dr: Juan R Bey MD Ordering Physician: Juan R Bey MD Results: 3.6MProbably Benign Finding - Short 6 M F/U Suggested Date of Service: 05/28/22 Follow Up: 6 Month F/U Procedure(s): MM tomosynthesis diagnostic LT Accession Number(s): [id number] cc: Juan R Bey MD EXAMINATION: MM [...] by Reggie Olvera MD in OV> 05/28/22 164 DD/ 1458 TD/TT: Career Information Specialist: SANTOS Procedure Note Donotuseinterpreter, Image - 05/28/2022 [facility]'s [address] [place] [address] Mammography Report Signed Patient: Torrie SyMR#: [id number] : 5Acct:[id number] Age/Sex: 67 / FADM Date: 05/28/22 Loc: HO.MAMMO Attending Dr: Juan R Bey MD Ordering Physician: Juan R Bey MD Results: 3.6MProbably Benign Finding - Short 6 M F/U Suggested Date of Service: 05/28/22Follow Up: 6 Month F/U Procedure(s): MM tomosynthesis diagnostic LT Accession Number(s): [id number] cc: Juan R Bey MD EXAMINATION: MM [...] in OV> 05/28/22 1643 DD/ 1458 TD/TT: Career Information Specialist: SK [facility] External Provider IMG BI PROCEDURES Edited Result - Final documented in this encounter Visit Diagnoses Not on filedocumented in this encounter Care Teams Geometry Professor Relationship Specialty Start Date End Date Juan R Blount MD [address] [place] [address] PCP - General Internal Medicine 12/09/13 [facility] 08/23/24 documented as of this encounter
--- OUTSIDE RECORDS SUMMARY | 2025-02-28 14:51 | XMS_ITS | Encounter Summary ---
Author Organization [employer] Address [address] [facility] [address]t [place] [address] Care Team Providers Care Cutting Tool Sharpener Name Role Phone Juan R Blount MD Primary Care Provide r Encounter Details Date Type Department Care Team ([facility] st Contact Info) Description 06/11/2022 Orders Only [facility] CHC MED & PEDS [address] [place] [address] Luz Marina Zaragoza LPN Social History Tobacco [...] on filedocumented in this encounter Care Teams Cutting Tool Sharpener Relationship Specialty Start Date End Date Juan R Blount MD [address] [place] [id number] PCP - General Internal Medicine 12/09/13 [facility] 08/23/24 documented as of this encounter
--- OUTSIDE RECORDS SUMMARY | 2025-02-28 14:51 | XMS_ITS | Clinical Summary ---
Author Organization [employer] Address [address] [facility] [address] [place] [address] Care Team Providers Care Stem Roller Or Crusher Operator Name Role Phone Juan R Blount MD Primary Care Provide r Allergies Active Allergy Reactions Criticality Noted Date Comments Kurt Inhibitors Cough Acetaminophen Other reaction(s): rash Albuterol Other reaction(s): rash Insulin Other reaction(s): rash Iodine Other reaction(s): rash Latex Other reaction(s): unspecified Medroxyprogesterone Other reaction(s): rash Penicillin V Rash Low 01/07/2024 Medications Continuous Blood Gluc Law Office Assistant (FreeStyle Crystal 2 Hilliard) deviceIndications :Type 2 diabetes mellitus with hyperglycemia, with long-term current use of insulin ([facility]) 1 Device before breakfast, before lunch, and before evening meal. 1 each 023 Active Continuous Blood Gluc Sensor (FreeStyle Crystal 2 Sensor) miscIndications:T ype 2 diabetes mellitus with hyperglycemia, with long-term current use of insulin ([facility]) 1 Device before breakfast, before lunch, and [...] 90 tablet 3 Active TRUEplus Lancets 33G miscIndications:T ype 2 diabetes mellitus with hyperglycemia (HCC),rn long term care (current) use of insulin (CMS/HCC) ([facility]) TEST BLOOD SUGAR FOUR TIMES DAILY 300 each Active glucose blood (FREESTYLE LITE) test stripIndications: Type 2 diabetes mellitus with hyperglycemia (HCC),prison (current) use of insulin (CMS/HCC) ([facility]) TEST BLOOD SUGAR FOUR TIMES DAILY 300 [...] 15 mL Active atenolol (Tenormin) 25 MG tabletIndications :Essential [...] Pen Needle Janene 32G X 4 MM miscIndications:T ype 2 diabetes mellitus without complication, with long-term current use of insulin ([facility]) USE DIRECTED FOUR TIMES DAILY 100 each 5 025 Active Incruse Ellipta 62.5 MCG/ACT aerosol powderIndications :Wheeze INHALE 1 PUFF BY MOUTH EVERY DAY AT THE SAME TIME RINSE MOUTH AFTER USING 30 each 1 025 Active gabapentin (Neurontin) 800 MG tabletIndications :Type 2 diabetes mellitus with hyperglycemia, with long-term current use of insulin ([facility]) TAKE 1 TABLET BY MOUTH THREE TIMES DAILY IN THE MORNING, AT NOON, AND IN THE EVENING 90 tablet 2 025 Active zolpidem (Ambien) 10 MG tabletIndications :Primary insomnia TAKE 1 TABLET BY MOUTH AT BEDTIME NEEDED FOR SLEEP 30 tablet 025 Active Trulicity 4.5 MG/0.5ML solution auto-injectorIndi cations:Type 2 diabetes mellitus with hyperglycemia, with long-term current use of insulin ([facility]) INJECT ONE PEN (= 4.5MG) SUBCUTANEOUSLY ONCE A WEEK DIRECTED 2 mL 3 025 Active Dulaglutide 4.5 MG/0.5ML solution auto-injectorIndi cations:Type 2 diabetes mellitus with hyperglycemia, with long-term current use of insulin ([facility]) Inject 4.5 mg under the skin 1 (one) time per week. 2 mL 3 025 2024 Discontinued Active Problems Problem Noted [...] hypertensive, diabetic and a smoker. Seen by Patient Safety Attendant Dr Sarmiento 10/20/2024 He ordered an ECHO [...] rare follicular cells seen in the sample, [place] category 1. She discussed with the patient that nondiagnostic results yield a 5-20% risk of malignancy. At this point the plan is to repeat the biopsy in about 3 months. Dulser will arrange for repeat FNA left mid [...] Pt is now under the care of Clinical Recruiter Dr Holm last seen 05/11/2019 He ordered [...] Eye exam was last done on: 08/2022 [facility] No retinopathy Microalbumin checked on: 10/18/2024 was: [...] Eye exam was last done on: 08/2022 [facility] No retinopathy Microalbumin checked on: [...] Eye exam was last done on: 08/2022 [facility] No retinopathy Microalbumin checked on: [...] Department Care Team Description 02/14/2025 Orders Only [facility] External Provider, [facility] 02/11/2025 Refill [facility] [address] [place] [address] Juan R Blount MD Type 2 diabetes mellitus with hyperglycemia, with long-term current use of insulin (HCC) 02/10/2025 Orders Only GENERIC EXTERNAL DATA DEPARTMENT Provider, Generic External Data 02/03/2025 Telephone [facility] [address] [place] [phone] Juan R Blount MD Prior Authorization 01/26/2025 Orders Only GENERIC EXTERNAL DATA DEPARTMENT Provider, Generic External Data 01/25/2025 1:00 PM EDT Office Visit [facility] [address] [place] [phone] Juan R Blount MD Malignant neoplasm of right female breast, unspecified estrogen receptor status, unspecified site of breast (CMS/HCC) (HCC) (Primary Dx); Type 2 diabetes mellitus with diabetic polyneuropathy, with long-term current use of insulin (HCC); Depressive disorder 01/25/2025 Travel 2025 Telephone [facility] [address] [place] [address] Juan R Blount MD chart prep 01/21/2025 Orders Only GENERIC EXTERNAL DATA DEPARTMENT Provider, Generic External Data 01/20/2025 Refill [facility] [address] [place] [address] Juan R Blount MD Primary insomnia 01/18/2025 Patient Outreach [facility] [address] [place] [address] Juan R Blount MD Pre-visit Planning ((Unable to reach for PVP screening, LVM) to be completed in office ) 01/18/2025 Refill [facility] [address] [place] [address] Juan R Blount MD Type 2 diabetes mellitus with hyperglycemia, with long-term current use of insulin (CMS/[facility]) 01/15/2025 Refill [facility] [address] [place] [address] Juan R Blount MD Wheeze 01/13/2025 Orders Only GENERIC EXTERNAL DATA DEPARTMENT Provider, Generic External Data 01/13/2025 Refill [facility] [address] [place] [address] Juan R Blount MD Type 2 diabetes mellitus with hyperglycemia, with long-term current use of insulin (CMS/HCC) 01/11/2025 Orders Only GENERIC EXTERNAL DATA DEPARTMENT Provider, Generic External Data 01/08/2025 Refill [facility] [address] [place] [address] Juan R Blount MD Type 2 diabetes mellitus without complication, with long-term current use of insulin (CMS/HCC) 12/29/2024 Orders Only GENERIC EXTERNAL DATA DEPARTMENT Provider, Generic External Data 12/27/2024 Refill [facility] [address] [place] [address] Aggie Guan MD Primary insomnia 12/24/2024 Telephone [facility] [address] [place] [address] Juliana Goode RN [facility] Neurology 12/23/2024 1:15 PM EDT Office Visit [facility] [address] [place] [address] Juan R Blount MD Type 2 diabetes mellitus with diabetic polyneuropathy, with long-term current use of insulin ([facility]) (Primary Dx); Right thyroid nodule; Abnormal ECG; Malignant neoplasm of right female breast, unspecified estrogen receptor status, unspecified site of breast ([facility]); Polyneuropathy associated with underlying disease ([facility]); Chronic midline low back pain without sciatica; Neck pain on right side; Preventative health care 12/23/2024 Travel 12/21/2024 Refill [facility] [address] [facility] [place] [address] Juan R Blount MD Wheeze 12/17/2024 Refill [facility] [address] [place] [address] Juan R Blount MD Asthma, unspecified asthma severity, unspecified whether complicated, unspecified whether persistent 12/14/2024 Orders Only GENERIC EXTERNAL DATA DEPARTMENT Provider, Generic External Data 12/09/2024 Refill [facility] [address] [place] [address] Juan R Blount MD Mixed hyperlipidemia; Wheezing 12/02/2024 Telephone [facility] [address] [place] [address] Juan R Blount MD GSSS QUESTIONS from [...] WHOLE BLOOD Routine 12/14/2024 11:00 AM EDT LIPID PANEL, STANDARD Routine 10/18/2024 [...] PM EDT Narrative 02/14/2025 1:13 PM EDT [facility] [address] [place] [address] Mammography Report Signed Patient: Torrie Sy MR#: [id number] : 1955 Acct:[id number] Age/Sex: 70 / F ADM Date: 02/14/25 Loc: [facility] Attending Dr: Yesica Dennis MD Ordering Physician: Yesica Dennis MD Results: Date of Service: 02/14/25 Follow Up: Procedure(s): XR DEXA axial skeleton Accession Number(s): [id number] cc: Juan R Bey MD; Yesica Dennis MD Reason For Exam: Osteopenia EXAMINATION: DXA BONE DENSITY AXIAL HISTORY: Osteopenia TECHNIQUE: Globial Dual energy absorptiometry (DEXA) of the lumbar [...] of the [employer] [place] for Metabolic Bone Disease, a World Health Organization (WHO) Collaborating Center. Electronically signed by: Caden Blood MD 02/14/2025 01:11 PM EDT RP Dictated By: Caden Blood MD Signed By: <Electronically signed by Caden Blood MD in OV> 02/14/25 1311 DD/ 1220 TD/TT: 02/14/25 1250 Tuberculosis Specialist: Procedure Note Donotuseinterpreter, Image - 02/14/2025 [facility] [address] [place] [address] Mammography Report Signed Patient: Torrie Sy#: [id number] : 5Acct:[id number] Age/Sex: 70 / FADM Date: 02/14/25 Loc: [facility] Attending Dr: Yesica Dennis MD Ordering Physician: Yesica Dennisesults: Date of Service: 02/14/25Follow Up: Procedure(s): XR DEXA axial skeleton Accession Number(s): [id number] cc: Juan R Bey MD; Yesica Dennis MD Reason For Exam: Osteopenia EXAMINATION: DXA BONE DENSITY AXIAL HISTORY: Osteopenia TECHNIQUE: Globial Dual energy absorptiometry (DEXA) of the lumbar [...] of the [employer] [place] for Metabolic Bone Disease, a World Health Organization (WHO) Collaborating Center. Electronically signed by: Caden Blood MD 02/14/2025 01:11 PM EDT RP Dictated By: Caden Blood MD Signed By: <Electronically signed by Caden Blood MD in OV> 02/14/25 1311 DD/ 1220 TD/TT: 02/14/25 1250 Tuberculosis Specialist: us [facility] External Provider IMG DXA PROCEDURES Final Result * (ABNORMAL) Glucose, Whole Blood (02/10/2025 12:43 PM EDT) Only the most recent of2 resultswithin the time period is included. Glucose, Whole Blood 208(H) 60 - 115 mg/dL [facility] Comment:METER #: [id number] Testing performed in the Endocrinology Department [address] , [address], [facility]. 02/10/2025 12:4 3 PM EDT 02/10/2025 12:47 PM EDT Generic External Data Provider LAB BLOOD ORDERAB LES Final Result [facility] [address] [place] [phone] * Fine needle aspiration (01/26/2025 11:13 AM EDT) 01/26/2025 11:1 3 AM EDT 01/27/2025 9:06 AM EDT [facility] - 01/28/2025 8:12 AM EDT ----- ------- Name: Torrie Sy Age/Sex: 70/F : 1955 [id number] [id number] Attend Dr: Eduarda Quintanilla MD Re01/26/25 Status: [facility] Location: [facility] Disch: ----- ------- SPEC : [id number] RECD: 01/27/25 STATUS: AMY WEBSTER NUM: [id number] [place]ILEY: 01/26/[address] [facility] [address]: Eduarda Quintanilla MD ENTERED: 01/27/25-1025 SP TYPE: Cytology OTHR DR: Juan R Bey MD ORDERED: Fine Ndl Asp Diagnosis Thyroid, left mid lower pole 3.3 cm nodule, fine needle aspiration: Benign ([place] category II). COMMENT: Satisfactory for evaluation; paucicellular [...] developed and their performance characteristics determined by [facility]. They have not been cleared or approved by the U.S. Food and Drug Administration (FDA). However, the FDA has determined that such clearance or approval is not necessary. This laboratory is certified under the Clinical Laboratory Improvement Amendments of 1988 (CLIA) as qualified to perform high complexity clinical laboratory testing. Copies To: Juan R Bey MD [address] [phone] Eduarda Quintanilla MD [facility] Endocrinology [address] [place] [phone] [email or web address] CONTINUED ON NEXT PAGE ----- ------- Name: Torrie Sy Age/Sex: 70/F : 1955 Unit#: [id number] Attend Dr: Eduarda Quintanilla MD Re01/26/25 Status: DEP REF Location: [facility] Disch: ----- ------- SPEC : [id number] RECD: 01/27/25 STATUS: AMY WEBSTER NUM: [id number] HAILEY: 01/26/25 [facility] [address]: Eduarda Quintanilla MD ENTERED: 01/27/25 SP TYPE: Cytology OTHR DR: Juan R Bey MD ORDERED: Fine Ndl Asp ----- ------- Signed (signature on file) Juan Blunt MD 01/28/25811 ----- ------- END OF REPORT Generic External Data Provider LAB CYTOLOGY JACEKE CHRIS Final Result [facility] [address] [place], [place] [phone] * (ABNORMAL) POCT Hgb A1c (01/25/2025 1:07 PM EDT) Hemoglobin A1C 9.0(A) 4.0 - 5.7 % QC Media Lot # [id number] Lot# Expiration Date [id number] Blood 01/25/2025 1:07 PM EDT Juan R Vega MD POINT OF CARE TEST EN TER/EDIT ORDERABLES Final Result * (ABNORMAL) Vitamin D, 25-Hydroxy, Total, Immunoassay (01/21/2025 11:49 AM EDT) Vitamin D 25-OH Total 14.6(L) >30 ng/mL [facility] Comment: Health Based Reference Values*< 20 ng/mL Pdexrzinl57-89 ng/mL Insufficient> 30 ng/mL Sufficient*Heena LUNDBERG. N [...] Provider LAB BLOOD ORDERAB LES Final Result [facility] [address] [place] [phone] * (ABNORMAL) CBC auto differential (01/21/2025 11:49 AM EDT) White Blood Count 12.9(H) 4.8 - 10.8 X10*3/uL [facility] Red Blood Count 3.87(L) 4.20 - 5.50 X10*6/uL [facility] Hemoglobin 11.6(L) 12.0 - 16.0 g/dl [facility] Hematocrit 35.4(L) 37.0 - 47.0 % [facility] Mean Corpuscular Volume 91.5 80.0 - 98.0 fL [facility] Mean Corpuscular Hemoglobin 30.0 27.0 - 33.0 pg [facility] Mean Corpuscular HGB Conc 32.8 31.0 - 35.0 g/dl [facility] Red Cell Distribution Width 13.4 11.0 - 16.0 % [facility] Platelet Count 371 160 - 400 X10*3/uL [facility] Mean Platelet Volume 10.2 9.4 - 12.3 fL [facility] Neutrophils Percent Auto 75.3(H) 45 - 73 % [facility] Imm Gran Pct Auto 0.5(H) 0.0 - 0.4 % [facility] Lymphocytes Percent Auto 17.9(L) 20 - 40 % [facility] Monocytes Percent Auto 4.1 2 - 11 % [facility] Eosinophils Percent Auto 1.2 0 - 4 % [facility] Basophils Percent Auto 1.0 0 - 2 % [facility] NRBC Pct Auto 0.0 0.0 - 0.2 /100WBC [facility] Neutrophils Absolute Auto 9.7(H) 2.0 - 8.3 x10*3/uL [facility] Imm Gran Abs Auto 0.07(H) 0.00 - 0.03 X10*3/uL [facility] Lymphocytes Absolute Auto 2.3 1.2 - 4.9 X10*3/uL [facility] Monocytes Absolute Auto 0.5 0.1 - 1.2 X10*3/uL [facility] Eosinophils Absolute Auto 0.2 0.0 - 0.4 X10*3/uL [facility] Basophils Absolute Auto 0.1 0.0 - 0.2 X10*3/uL [facility] NRBC Abs Auto 0.000 0.0 - 0.012 X10*3/uL [facility] 01/21/2025 11:4 9 AM EDT 01/21/2025 11:49 AM EDT Generic External Data Provider LAB BLOOD ORDERAB LES Final Result Performing Organization Address [facility] Co de Phone Number [facility] [address] [place] [phone] * Cancer antigen 27.29 (01/21/2025 11:49 AM EDT) CA 27.29 29 <38 U/mL [facility] Comment:This test was perfor med using the SiemensChemiluminescent method. Values obtained fromdifferent assay methods cannot be usedinterchangeably. CA 27.29 levels, regardless ofvalue, should not be interpreted as absoluteevidence of the presence or absence of disease.THIS TEST WAS PERFORMED AT:[facility] [place] [phone] DEVRIES MD 01/21/2025 11:4 9 AM EDT 01/21/2025 11:49 AM EDT [facility] External Data Provider LAB BLOOD ORDERAB LES Final Result Performing Organization Address [facility] de Phone Number [facility] [address] [place] [phone] * (ABNORMAL) Comprehensive Metabolic Panel (01/21/2025 11:49 AM EDT) Sodium 140 135 - 145 mmol/L [facility] Potassium 4.6 3.3 - 5.1 mmol/L [facility] Chloride 105 96 - 108 mmol/L [facility] Carbon Dioxide 27 22 - 29 mmol/L [facility] Anion Gap 13 12 - 20 [facility] Urea Nitrogen (BUN) 13 9 - 16 mg/dL [facility] Creatinine, Serum 0.72 0.5 - 1.4 mg/dL [facility] Creatinine Clr Calc Pharmacy TNP [facility] Comment:Unable to calculate eCrCL; all parameters not provided. Estimated Glomerular Filt Rate >60 [facility] Comment:Chronic Kidney Disea se: Estimated GFR < 60 mL/min/1.56w6Thcmgj Kidney Disease: Estimated GFR < 15 mL/min/1.73m2 Glucose 218(H) 60 - 115 mg/dL [facility] Calcium 9.2 8.4 - 10.2 mg/dL [facility] Bilirubin, Total 0.5 0.0 - 1.0 mg/dL [facility] Aspartate Amino Transferase 14 5 - 31 U/L [facility] Alanine Aminotransferase <6 0 - 31 U/L [facility] Total Protein 7.0 6.5 - 8.0 g/dL [facility] Albumin Level 4.0 3.5 - 5.0 g/dL [facility] Alkaline Phosphatase 121(H) 39 - 117 U/L [facility] 01/21/2025 11:4 9 AM EDT 01/21/2025 11:49 AM EDT us Generic External Data Provider LAB BLOOD ORDERAB LES Final Result Performing Organization Address City/State/[facility] Co de Phone Number [facility] [address] [place] [phone] * Gross and Microscopic Level 5 (01/13/2025 1:28 PM EDT) 01/13/2025 1:28 PM EDT 01/13/2025 2:55 PM EDT Narrative [facility] - 01/18/2025 10:35 AM EDT ----- ------- Name: Torrie Sy Age/Sex: 69/F : 1955 Unit#: [id number] Attend Dr: George Bearden MD Re01/13/25 Status: [facility] Location: [facility] Disch: ----- ------- SPEC : [id number] RECD: 01/13/25-1454 STATUS: AMY WEBSTER NUM: [id number] HAILEY: 01/13/25-[address] [facility] [address]: George Bearden MD ENTERED: 01/13/25151 SP [...] fat necrosis, without evidence of definitive lesion. Optimization Manager sections are submitted sequentially from superior to inferior in cassettes A1 -10, to include A1 superior margin perpendicular and A10 inferior margin perpendicular. (DTL) This case was reviewed intradepartmentally. IHC S/NG Disclaimer NOTE: Unless otherwise stated, all tissue is formalin-fixed and paraffin-embedded. Some or all of the immunohistochemical tests reported herein may have been developed and their performance characteristics determined by [facility]. They have not been cleared or [...] Torrie Sy Age/Sex: 69/F : 1955 Unit#: [id number] Attend Dr: George Bearden MD Re01/13/25 Status: [facility] Location: [facility] Disch: ----- ------- SPEC : [id number] RECD: 01/13/25-6530 STATUS: AMY WEBSTER NUM: [id number] [place]: 01/13/25-13[address] [facility] [address]: George Bearden MD ENTERED: 01/13/25-151 SP TYPE: Surgical OTHR DR: Juan R Bey MD ORDERED: Gross Micro L5 Copies To: Juan R Bey MD [address] [address] George Bearden MD [facility] General Surgeons [address] [place] [phone] ----- ------- Signed (signature on file) Anna Mayank 01/18/25 1035 ----- ------- END OF REPORT us Generic External Data Provider LAB BLOOD ORDERAB LES Final Result Performing Organization Address City/State/[facility] Co de Phone Number [facility] [address] [place] [phone] * Pathology Report (01/11/2025 3:53 PM EDT) 01/11/2025 3:53 PM EDT 01/13/2025 8:35 AM EDT Kostas [facility] - 01/17/2025 2:02 PM EDT ----- ------- Name: Torrie Sy Age/Sex: 69/F : 1955 Unit#: [id number] Attend Dr: George Bearden MD Re12/27/24 Status: DEP REF Location: [facility]AMMO Disch: ----- ------- SPEC : [id number] RECD: 01/13/25 STATUS: AMY WEBSTER NUM: [id number] HAILEY: 01/11/25 [facility] [address]: George Bearden MD ENTERED: 01/13/25 SP TYPE: Surgical OTHR DR: Juan R Bey MD ORDERED: Consult. refer. Diagnosis A. Breast, right, asymmetry with calcifications, 9:00, 7 cm from nipple, core biopsy (consult slides from [facility], Surgical Pathology Service #[id number]): -Invasive ductal carcinoma with lobular features, MSBR grade 1. -Focus suspicious for ductal carcinoma in situ. B. Breast, right, asymmetry tissue, 9:00, 7 cm from nipple, core biopsy (consult slides from [facility], Surgical Pathology Service #[id number]): -Invasive ductal carcinoma with lobular features, MSBR [...] Torrie Sy Age/Sex: 69/F : 1955 Unit#: [id number] Attend Dr: George Bearden MD Re12/27/24 Status: [facility] REF Location: [facility] Disch: ----- ------- SPEC : [id number] RECD: 01/13/25 STATUS: AMY ELEANOR NUM: [id number] HAILEY: 01/11/25-1553 [facility] [address]: George Bearden MD [...] consult Gross Description Received for consultation from [facility], [place], [place] are 9 slides labeled with the patient's name, date of , and [id number] (4 H E (A1-1, A1-3, B1- 1, B1-3) and 5 IHC (B1-4 ER, B1-5 OH, B1-6 [id number], B1-7 E-CAD, B1-8 B-CATN)). Also received is a copy of the pathology report with a collection date of 09/23/2024. [facility] Note: ER and OH immunostains are scored as Positive (> or [...] less than 10% of the tumor. See [facility] report for staining method. IHC S/NG Disclaimer NOTE: Unless otherwise stated, all tissue is formalin-fixed and paraffin-embedded. Some or all of the immunohistochemical tests reported herein may have been developed and their performance characteristics determined by [facility]. They have not been cleared or [...] Torrie Sy Age/Sex: 69/F : 1955 Unit#: [id number] Attend Dr: George Bearden MD Re12/27/24 Status: DEP REF Location: [facility] Disch: ----- ------- SPEC : [id number] RECD: 01/13/25 STATUS: AMY WEBSTER NUM: [id number] [place]ILEY: 01/11/25-15[address] [facility] [address]: George Bearden MD ENTERED: 01/13/25 SP TYPE: Surgical OTHR DR: Juan R Bey MD ORDERED: Consult. refer. Copies To: [place] [address] George Bearden MD [facility] General Surgeons [address] [place] [address] ----- ------- Signed (signature on file) Anna Talley 01/17/25 1402 ----- ------- END OF REPORT us Generic External Data Provider HISTORICAL/NON OR DERABLE LABS Final Result [facility] [address] [place] [address] [phone] * Hematoxylin and Eosin Stain (12/29/2024 12:49 PM EDT) 12/29/2024 12:4 9 PM EDT 12/29/2024 12:59 PM EDT Narrative [facility] - 01/18/2025 11:08 AM EDT ----- ------- Name: Torrie Sy Age/Sex: 69/F : 1955 Unit#: [id number] Attend Dr: George Bearden MD Re12/29/24 Status: [facility] Location: [facility] Disch: ----- ------- SPEC : [id number] RECD: 12/29/24 STATUS: AMY WEBSTER NUM: [id number] HAILEY: 12/29/24 [facility] [address]: George Bearden MD ENTERED: 12/29/249828 SP TYPE: Surgical OTHR DR: Juan R Bey MD ORDERED: HE Stain/6, Gross Micro L3, Gross Micro L5/5, Cytokeratin/6, ER/4, OH, IOC, IHC/5, Add. immunos/3, IHC ER/OH/Her2N/4, CK5-6/4, E-cadherin, Ki-67, OCI7PMX COMMENTS: Cassettes A1-A10 are placed in formalin at 1327. Addendum Addendum 1 Entered: 01/18/25-1107 (A): [facility] HER2 FISH analysis: Result: Negative Interpretation: HER2 [...] section. Addendum Signed (signature on file) Anna Mayank 01/18/25 1108 ----- ------- Diagnosis A. Breast, [...] Torrie yS Age/Sex: 69/F : 1955 Unit#: [id number] Attend Dr: George Bearden MD Re12/29/24 Status: [facility] Location: [facility] Disch: ----- ------- SPEC : [id number] RECD: 12/29/24-125 STATUS: AMY WEBSTER NUM: [id number] HAILEY: 12/29/24-[address] [facility] [address]: George Bearden MD ENTERED: 12/29/24-130 SP TYPE: Surgical OTHR DR: Juan R Bey MD ORDERED: HE Stain/6, Gross Micro L3, Gross Micro L5/5, Cytokeratin/6, ER/4, OH, IOC, IHC/5, Add. immunos/3, IHC ER/OH/Her2N/4, CK5-6/4, E-cadherin, Ki-67, [id number] COMMENTS: Cassettes A1-A10 are placed in formalin [...] Torrie Sy Age/Sex: 69/F : 1955 Unit#: [id number] Attend Dr: George Bearden MD Re12/29/24 Status: [facility] Location: [facility] Disch: ----- ------- SPEC : [id number] RECD: 12/29/24125 STATUS: AMY WEBSTER NUM: [id number] HAILEY: 12/29/24-1249 [facility] [address]: George Bearden MD ENTERED: 12/29/24-1304 SP TYPE: Surgical OTHR DR: Juan R Bey MD ORDERED: HE Stain/6, Gross Micro L3, Gross Micro L5/5, Cytokeratin/6, ER/4, OH, IOC, IHC/5, Add. immunos/3, IHC ER/OH/Her2N/4, CK5-6/4, E-cadherin, Ki-67, [id number] COMMENTS: Cassettes A1-A10 are placed in formalin at 1327. Diagnosis (Continued) Tipton nodes: 3 Axillary nodes: 0 Number involved: [...] CONTINUED ON NEXT PAGE ----- ------- Name: Torrei Sy Age/Sex: 69/F : 1955 Unit#: [id number] Attend Dr: George Bearden MD Re12/29/24 Status: [facility] Location: [facility] Disch: ----- ------- SPEC : [id number] RECD: 12/29/24-125 STATUS: AMY WEBSTER NUM: [id number] HAILEY: 12/29/24-1248 [facility] [address]: George Bearden MD ENTERED: 12/29/24-1305 SP TYPE: Surgical OTHR DR: Juan R Bey MD ORDERED: HE Stain/6, Gross Micro L3, Gross Micro L5/5, Cytokeratin/6, ER/4, OH, IOC, IHC/5, Add. immunos/3, IHC ER/OH/Her2N/4, CK5-6/4, E-cadherin, Ki-67, [id number] COMMENTS: Cassettes A1-A10 are placed in formalin at 1327. Material Received A. Right breast lumpectomy B. Tipton node #1, count 1497 C. Additional axillary tissue D. Tipton node #2, count 273 E. Tipton node #3, count 204 F. Anterior inferior [...] other cysts, lesions or nodules are identified. Optimization Manager sections are submitted in cassettes A1-A10 from [...] Torrie Sy Age/Sex: 69/F : 1955 Unit#: [id number] Attend Dr: George eBarden MD Re12/29/24 Status: [facility] Location: [facility] Disch: ----- ------- SPEC : [id number] RECD: 12/29/24 STATUS: AMY WEBSTER NUM: [id number] HAILEY: 12/29/[address]: George Bearden MD ENTERED: 12/29/24-130 SP TYPE: Surgical OTHR DR: Juan R Bey MD ORDERED: HE Stain/6, Gross Micro L3, Gross Micro L5/5, Cytokeratin/6, ER/4, OH, IOC, IHC/5, Add. immunos/3, IHC ER/OH/Her2N/4, CK5-6/4, E-cadherin, Ki-67, [id number] COMMENTS: Cassettes A1-A10 are placed in formalin [...] lobular fat. No lymph nodes are identified. Optimization Manager sections are submitted in a cassette labeled [...] micronodular focus along the prior biopsy side. Optimization Manager sections perpendicular to the anterior-inferior margins are submitted in cassettes F1-F10, from medial to lateral, respectively. CEDS Interpretive Information CONTINUED ON NEXT PAGE ----- ------- Name: Torrie Sy Age/Sex: 69/F : 1955 Unit#: [id number] Attend Dr: George Bearden MD Re12/29/24 Status: [facility] Location: [facility] Disch: ----- ------- SPEC : [id number] RECD: 12/29/24 STATUS: AMY WEBSTER NUM: [id number] HAILEY: 12/29/[address]: George Bearden MD ENTERED: 12/29/24-1304 SP TYPE: Surgical OTHR DR: Juan R Bey MD ORDERED: HE Stain/6, Gross Micro L3, Gross Micro L5/5, Cytokeratin/6, ER/4, OH, IOC, IHC/5, Add. immunos/3, IHC ER/OH/Her2N/4, CK5-6/4, E-cadherin, Ki-67, [id number] COMMENTS: Cassettes A1-A10 are placed in formalin at 1327. Gross Description (Continued) All tests are performed on formalin-fixed, paraffin-embedded tissue using automated immunostain methods: Estrogen receptor: Clone SP1; [place] [facility] [place] DAB Progesterone receptor: Clone 1E2; [place] [facility] [place] DAB HER2: FDA-approved [place] PATHWAY anti-HER-2/gail (4B5) Monoclonal; [facility] [place] DAB Positive and negative controls are [...] and Progesterone Receptor Testing in Breast Cancer: [place] Society of Clinical Oncology/College of Vincentian Pathologists Guideline Update. Arch of Pathol Lab Med. 2020; 144(5): 545-563. CONTINUED ON NEXT PAGE ----- ------- Name: Torrie Sy Age/Sex: 69/F : 1955 Unit#: [id number] Attend Dr: George Bearden MD Re12/29/24 Status: [facility] Location: [facility] Disch: ----- ------- SPEC : [id number] RECD: 12/29/24 STATUS: AMY WEBSTER NUM: [id number] HAILEY: 12/29/[address]: George Bearden MD ENTERED: 12/29/24-1303 SP TYPE: Surgical OTHR DR: Juan R Bey MD ORDERED: HE Stain/6, Gross Micro L3, Gross Micro L5/5, Cytokeratin/6, ER/4, OH, IOC, IHC/5, Add. immunos/3, IHC ER/OH/Her2N/4, CK5-6/4, E-cadherin, Ki-67, [id number] COMMENTS: Cassettes A1-A10 are placed in formalin at 1327. Gross Description (Continued) Arely CHILDERS, Roosevelt BABIN, Marie KH, et al. Her2 testing in breast cancer: [place] Society of Clinical Oncology/College of [employer]ian Pathologists clinical practice guideline focused update. Arch Pathol Lab Med. 2018; 142(11): 3636-1281. Mitch N, Lion P, et al. Adjuvant abemaciclib combined with endocrine therapy for high- risk early breast cancer: updated efficacy and Ki-67 analysis from the [facility] study. Lita Oncol. 2020;32(12):4519-2307. Roosevelt MAYES, Yossi MADRIGAL, et al. ASCO/CAP Guideline Recommendations for Immunohistochemical Testing of Estrogen and Progesterone Receptors in Breast Cancer. J Clin Oncol, 28 (16), 2010: 0420-0716. This case was reviewed intradepartmentally. Results given to Dr. Bearden by secure text by Dr. Talley on 01/05/2025 at 4:43 pm. Special studies ordered and performed: Immunostains for CK 5/6 and ER on A3, F4, and F10; ER, OH, HER2 and Ki 67 on A5; pankeratin on B1, D1 and E1. IHC S/NG Disclaimer NOTE: Unless otherwise stated, all tissue is formalin-fixed and paraffin-embedded. Some or all of the immunohistochemical tests reported herein may have been developed and their performance characteristics determined by [facility]. They have not been cleared or approved by the U.S. Food and Drug Administration (FDA). However, the FDA has determined that such clearance or approval is not necessary. This laboratory is certified under the Clinical Laboratory Improvement Amendments of 1988 (CLIA) as qualified to perform high complexity clinical laboratory testing. Copies To: Juan R Bey MD [address] [address] George Bearden MD [facility] [address] [place] [address] CONTINUED ON NEXT PAGE ----- ------- Name: Torrie Sy Age/Sex: 69/F : 1955 Unit#: [id number] Attend Dr: George Bearden MD Re12/29/24 Status: [facility] Location: [facility] Disch: ----- ------- SPEC : [id number] RECD: 12/29/24 STATUS: AMY WEBSTER NUM: [id number] HAILEY: 12/29/[address] [facility] [address]: George Bearden MD ENTERED: 12/29/24 SP TYPE: Surgical OTHR DR: Juan R Bey MD ORDERED: HE Stain/6, Gross Micro L3, Gross Micro L5/5, Cytokeratin/6, ER/4, OH, IOC, IHC/5, Add. immunos/3, IHC ER/OH/Her2N/4, CK5-6/4, E-cadherin, Ki-67, [id number] COMMENTS: Cassettes A1-A10 are placed in formalin at 1327. ----- ------- Signed (signature on file) Anna Danbury 01/05/25 1658 ----- ------- END OF REPORT us Generic External Data Provider LAB BLOOD ORDERAB LES Final Result [facility] [address] [place] [address] [phone] * BI MM SURGICAL SPECIMEN (12/29/2024 12:45 PM EDT) Anatomical Region Laterality Modality Breast Bilateral Mammography 12/29/2024 12:4 5 PM EDT Narrative 12/29/2024 1:09 PM EDT [address] [address] [id number] Mammography Report Signed Patient: Torrie Sy MR#: [id number] : 1955 Acct:[id number] Age/Sex: 69 / F ADM Date: 12/29/24 Loc: HO.SSS Attending Dr: George Bearden MD Ordering Physician: George Bearden MD Results: Date of Service: 12/29/24 Follow Up: Procedure(s): MM surgical specimen Accession Number(s): [id number] cc: Juan R Bey MD; George Bearden MD Single right breast specimen radiograph demonstrates the tag and the marker clip within the specimen. Electronically signed by: Gabriella Campuzano DO 12/29/2024 01:06 PM EDT Dictated By: Gabriella Campuzano DO Signed By: <Electronically signed by Gabriella Campuzano DO in OV> 12/29/24 1306 DD/ 1245 TD/TT: 12/29/24 1300 Tuberculosis Specialist: Procedure Note Donotuseinterpreter, Image - 12/29/[address] [address] [id number] Mammography Report Signed Patient: Torrie SyMR#: [id number] : 5Acct:[id number] Age/Sex: 69 / FADM Date: 12/29/24 Loc: HO.SSS Attending Dr: George Bearden MD Ordering Physician: George Beardenesults: Date of Service: 12/29/24Follow Up: Procedure(s): MM surgical specimen Accession Number(s): [id number] cc: Juan R Bey MD; George Bearden MD Single right breast specimen radiograph demonstrates the tag and the marker clip within the specimen. Electronically signed by: Gabriella Campuzano DO 12/29/2024 01:06 PM EDT RP Dictated By: Gabriella Campuzano DO Signed By: <Electronically signed by Gabriella Campuzano DO in OV> 12/29/24 1306 DD/ 1245 TD/TT: 12/29/24 1300 Tuberculosis Specialist: [facility] External Provider IMG BI PROCEDURES Final Result * NM SENTINEL NODE W IMAGING (12/29/2024 8:23 AM EDT) Anatomical Region Laterality Modality Nuclear Medicine 12/29/2024 8:23 AM EDT Narrative 12/29/2024 12:34 PM EDT [place] [address] Nuclear Medicine Report Signed Patient: Torrie Sy MR#: [id number] : 1955 Acct:[id number] Age/Sex: 69 / F ADM Date: 12/29/24 Loc: [facility] Attending Dr: George Bearden MD Ordering Physician: George Bearden MD Date of Service: 12/29/24 Procedure(s): NM sentinel node w imaging Accession Number(s): [id number] cc: Juan R Bey MD; George Bearden [...] 12/29/24 1232 DD/ 0823 TD/TT: 12/29/24 09 Tuberculosis Specialist: [facility] Procedure Note Donotuseinterpreter, Image - 12/29/[address] [address] Nuclear Medicine Report Signed Patient: Torrie SyMR#: [id number] : 5Acct:[id number] Age/Sex: 69 / FADM Date: 12/29/24 Loc: .[facility] Attending Dr: George Bearden MD Ordering Physician: George Bearden MD Date of Service: 12/29/24 Procedure(s): NM sentinel node w imaging Accession Number(s): [id number] cc: Juan R Bey MD; George Bearden [...] 12/29/24 1232 DD/ 08 TD/TT: 12/29/24 09 Tuberculosis Specialist: JENARO [facility] External Provider IMG NM PROCEDURES Final Result * (ABNORMAL) Glucose, Whole Blood (12/29/2024 7:43 AM EDT) Glucose, Whole Blood 239(H) 60 - 115 mg/dL [facility] Comment:METER #: [id number] 12/29/2024 7:43 AM EDT 12/29/2024 7:47 AM EDT Generic External Data Provider LAB BLOOD ORDERAB LES Final Result Performing Organization Address City/State/[facility] Co de Phone Number [facility] [address] [place] [address] [phone] * Mammogram Diagnostic Right (12/27/2024 11:13 AM EDT) Anatomical Region Laterality Modality Breast Right Mammography 12/27/2024 11:1 3 AM EDT Narrative 12/27/2024 1:02 PM EDT [facility] [address] [place] [address] Mammography Report Signed Patient: Torrie Sy MR#: [id number] : 1955 Acct:[id number] Age/Sex: 69 / F ADM Date: 12/27/24 Loc: [facility] Attending Dr: George Bearden MD Ordering Physician: George Bearden MD Results: 6Know n Biopsy Proven Malignancy Date of Service: 12/27/24 Follow Up: Surgical Consult Procedure(s): MM diagnostic mammo unilat RT Accession Number(s): [id number] cc: Juan R Bey MD; George Bearden [...] carbonated lidocaine 1%: 10 cc. LOCALIZATION SYSTEM: -Bleachers LOCallizer Wire-Free Guidance System with 12g needle applicator. -Length: 7 cm. -RADIOFREQUENCY TAG: ID # [id number] RF Tag ID confirmed with LOCalizer Guidance [...] -Status post right breast RFID localization (tag ID#[id number]). Electronically signed by: Jonathan Bacon MD 12/27/2024 01:00 PM EDT Dictated By: Jonathan Bacon MD Signed By: <Electronically signed by Jonathan Bacon MD in OV> 12/27/24 1300 DD/ 1113 TD/TT: 12/27/24 1120 Tuberculosis Specialist: Procedure Note Donotuseinterpreter, Image - 12/27/2024 [facility] [address] [place] [address] [place] [address] Mammography Report Signed Patient: Torrie Sy#: [id number] : 5Acct:[id number] Age/Sex: 69 / FADM Date: 12/27/24 Loc: HO.MAMMO Attending Dr: George Bearden MD Ordering Physician: George Bearden MDResults: 6Know n Biopsy Proven Malignancy Date of Service: 12/27/24Follow Up: Surgical Consult Procedure(s): MM diagnostic mammo unilat RT Accession Number(s): [id number] cc: Juan R Bey MD; George Bearden [...] carbonated lidocaine 1%: 10 cc. LOCALIZATION SYSTEM: -Bleachers LOCallizer Wire-Free Guidance System with 12g needle applicator. -Length: 7 cm. -RADIOFREQUENCY TAG: ID # [id number] RF Tag ID confirmed with LOCalizer Guidance [...] -Status post right breast RFID localization (tag ID#[id number]). Electronically signed by: Jonathan Bacon MD 12/27/2024 01:00 PM EDT Dictated By: Jonathan Bacon MD Signed By: <Electronically signed by Jonathan Bacon MD in OV> 12/27/24 1300 DD/ 1113 TD/TT: 12/27/24 1120 Tuberculosis Specialist: [facility] External Provider IMG BI PROCEDURES Edited Result - Final * US breast needle loc RT - RFID (12/27/2024 10:32 AM EDT) Anatomical Region Laterality Modality Abdomen Ultrasound 12/27/2024 10:3 2 AM EDT Narrative 12/27/2024 1:02 PM EDT [address] [place] [address] Ultrasound Report Signed Patient: Torrie Sy MR#: [id number] : 1955 Acct:[id number] Age/Sex: 69 / F ADM Date: 12/27/24 Loc: HO.MAMMO Attending Dr: George Bearden MD Ordering Physician: George Bearden MD Date of Service: 12/27/24 Procedure(s): US Breast RF Tag Device Right Accession Number(s): [id number] cc: Juan R Bey MD; George Bearden [...] carbonated lidocaine 1%: 10 cc. LOCALIZATION SYSTEM: -Bleachers LOCallizer Wire-Free Guidance System with 12g needle applicator. -Length: 7 cm. -RADIOFREQUENCY TAG: ID # [id number] RF Tag ID confirmed with LOCalizer Guidance [...] -Status post right breast RFID localization (tag ID#[id number]). Electronically signed by: Jonathan Bacon MD 12/27/2024 01:00 PM EDT Dictated By: Jonathan Bacon MD Signed By: <Electronically signed by Jonathan Bacon MD in OV> 12/27/24 1300 DD/ 1032 TD/TT: 12/27/24 1120 Tuberculosis Specialist: Procedure Note Donotuseinterpreter, Image - 12/27/2024 [facility] [address] [place] [address] Ultrasound Report Signed Patient: Torrie Sy#: [id number] : 5Acct:[id number] Age/Sex: 69 / FADM Date: 12/27/24 Loc: [facility] Attending Dr: George Bearden MD Ordering Physician: George Bearden MD Date of Service: 12/27/24 Procedure(s): US Breast RF Tag Device Right Accession Number(s): [id number] cc: Juan R Bey MD; George Bearden [...] carbonated lidocaine 1%: 10 cc. LOCALIZATION SYSTEM: -Bleachers LOCallizer Wire-Free Guidance System with 12g needle applicator. -Length: 7 cm. -RADIOFREQUENCY TAG: ID # [id number] RF Tag ID confirmed with LOCalizer Guidance [...] -Status post right breast RFID localization (tag ID#[id number]). Electronically signed by: Jonathan Bacon MD 12/27/2024 01:00 PM EDT Dictated By: Jonathan Bacon MD Signed By: <Electronically signed by Jonathan Bacon MD in OV> 12/27/24 1300 DD/ 1032 TD/TT: 12/27/24 1120 Tuberculosis Specialist: [facility] External Provider IMG US PROCEDURES Edited Result - Final * (ABNORMAL) Lipid Panel, Standard (10/18/2024 2:56 PM EDT) Triglycerides 186(H) <150 mg/dL [facility] Comment:Desirable Triglyceri de: less than 150 mg/dLBorderline High Triglyceride 150-199 mg/dLHigh Triglyceride: 200-499 mg/dLVery High Triglyceride: greater than or equal to 5OO mg/dL Cholesterol 127 <200 mg/dL [facility] Comment:Desirable Cholestero l: less than 200 mg/dLBorderline High Cholesterol: 200-239 mg/dLHigh Cholesterol: greater than 239 mg/dL LDL Cholesterol Calculated 56 <100 mg/dL [facility] Comment:Desirable LDL: less than 100 mg/dLNear Optimal/Above Optimal LDL: 110- 129 mg/dLBorderline High LDL: 130-159 mg/dLHigh LDL: 160-189 mg/dLVery High LDL: greater than or equal to 190 mg/dL HDL Cholesterol 34(L) >40 mg/dL [facility] Comment:Desirable HDL: great er than 40 mg/dL Note: This HDL assay may give artificially low results in patients with liver disease. 10/18/2024 2:56 PM EDT 10/18/2024 2:56 PM EDT us Generic External Data Provider LAB BLOOD ORDERAB LES Final Result [facility] [address] [place] [phone] * Albumin, Random Urine W/Creatinine (10/18/2024 2:55 PM EDT) Creatinine, Urine 136.42 mg/dL [facility] Microalbumin Urine 28.0 mg/L [facility] Microalbum Creatinine Ratio Ur 20.5 <30 ug/mg cr [facility] Comment:Albumin/Creatinine R atio Reference Ranges: Normal: < 30 ug/mg creatinine Microalbuminuria: 30 - 300 ug/mg creatinineClinical Albuminuria: > 300 ug/mg creatinine 10/18/2024 2:55 PM EDT 10/18/2024 3:23 PM EDT Generic External Data Provider LAB URINE ORDERAB LES Final Result Performing Organization Address [facility] Co de Phone Number [facility] [address] [place] [phone] * Hepatitis Panel, General (02/05/2024 9:25 AM EDT) Hepatitis A IgM Nonreactive Nonreactive [facility] Comment:IgM antibodies to [place] CRUZ V not detected; does not exclude earlyacute or recovered HAV infection. ~Hepatitis B Surface Antibody NONREACTIVE Nonreactive [facility] Comment:Nonreactive: < 8.00 mIU/mL Hepatitis B Core Antibody Nonreactive Nonreactive [facility] Hepatitis C Antibody Nonreactive Nonreactive [facility] Comment:Antibodies to HCV no t detected; does not exclude early acuteHCV infection. Hepatitis B Surface Ag Negative Negative [facility] 02/05/2024 9:25 AM EDT 02/05/2024 9:25 AM EDT Generic External Data Provider LAB BLOOD ORDERAB LES Final Result Performing Organization Address [facility] Co de Phone Number [facility] [address] [place] [phone] from Last 3 Months or Most Recently Relevant to Health Maintenance Insurance [facility] < [address] [place] [id number] Care Teams Stem Roller Or Crusher Operator Relationship Specialty Start Date End Date Juan R Blount MD [address] [place] [phone] PCP - General Internal Medicine 12/09/13 [facility] Endocr[facility] 08/23/24
--- OUTSIDE RECORDS SUMMARY | 2025-02-28 14:51 | XMS_ITS | Encounter Summary ---
Author Organization [employer] Address [address] [facility] [address]t [place] [address] Care Team Providers Care Operators Teacher Name Role Phone Juan R Blount MD Primary Care Provide r Reason for Visit * Reason Onset Date Comments Med Refill 12/03/2022 Encounter Details Date Type Department Care Team (Late st Contact Info) Description 12/03/2022 Refill [facility] [address] [place], [place] [phone] Juan R Blount MD [address] [place] [address] Asthma, unspecified asthma severity, unspecified whether complicated, [...] documented as of this encounter Care Teams Operators Teacher Relationship Specialty Start Date End Date Juan R Blount MD [address] [place] [phone] PCP - General Internal Medicine 12/09/13 Sh[facility] Sutton Endocrinology 08/23/24 documented as of this encounter
--- OUTSIDE RECORDS SUMMARY | 2025-02-28 14:51 | XMS_ITS | Encounter Summary ---
Author Organization [employer] Address [address] [facility] [address]t [place] [address] Care Team Providers Care Closer On Name Role Phone Juan R Blount MD Primary Care Provide r Encounter Details Date Type Department Care Team ([facility] st Contact Info) Description 07/03/2022 Orders Only [facility] [address] [place] [address] Luz Marina Zaragoza LPN Social History Tobacco [...] on filedocumented in this encounter Care Teams Closer On Relationship Specialty Start Date End Date Juan R Blount MD [address] [place] [phone] PCP - General Internal Medicine 12/09/13 Shasta Sutton Endocrinology 08/23/24 documented as of this encounter
--- OUTSIDE RECORDS SUMMARY | 2025-02-28 14:51 | XMS_ITS | Encounter Summary ---
Author Organization [employer] Address [address] [facility] 7[address] [place] [address] Care Team Providers Care Egg Crater Name Role Phone Juan R Blount MD Primary Care Provide r Encounter Details Date Type Department Care Team ([facility] st Contact Info) Description 05/29/2022 Orders Only [facility] [address] [place] [address] Cyndi Sy LPN Social History Tobacco Use [...] on filedocumented in this encounter Care Teams Egg Crater Relationship Specialty Start Date End Date Juan R Blount MD [address] [place] [address] PCP - General Internal Medicine 12/09/13 Shasta Sutton Endocrinology 08/23/24 documented as of this encounter
--- OUTSIDE RECORDS SUMMARY | 2025-02-28 14:51 | XMS_ITS | Encounter Summary ---
Author Organization [employer] Address [address] [facility] 7t [place] [address] Care Team Providers Care Pets Salesperson Name Role Phone Juan R Blount MD Primary Care Provide r Encounter Details Date Type Department Care Team (Late st Contact Info) Description 05/31/2022 Abstract [facility] MED[facility]INE [address] [place], [place] [phone] Juan R Blount MD [address] [place], [place] [phone] Social History Tobacco Use Types Packs/Day Years [...] on filedocumented in this encounter Care Teams Pets Salesperson Relationship Specialty Start Date End Date Juan R Blount MD [address] [place], [place] [phone] PCP - General Internal Medicine 12/09/13 Shasta Sutton Endocrinology 08/23/24 documented as of this encounter
== END 2025-02-28 13:37 | disposition home or self-care (01) ==
LOC: HO.HGS 12:44
PROVIDERS: PCP Internal Medicine; Visit Provider Surgery
DX: C50.911 Malignant neoplasm of unspecified site of right female breast (principal)
CPT/HCPCS: 99024

== ENCOUNTER → 2025-02-28 12:43 | Outpatient (BNVA) | payer OTHER, SELFPAY | PROVIDERS: PCP Internal Medicine; Visit Provider Surgery | DX: Z48.3 Aftercare following surgery for neoplasm (principal); C50.911 Malignant neoplasm of unspecified site of right female breast | CPT/HCPCS: 99212 ==